=== PATIENT | female | born 1945 | race Caucasian/White ===

== ENCOUNTER → 2024-02-15 12:36 | Outpatient (REF) | payer OTHER, SELFPAY | LOC: RCS 12:36 | PROVIDERS: ATTENDING PHYSICIAN Internal Medicine Cardiovascular Disease; FAMILY PHYSICIAN Internal Medicine | DX: I35.0 Nonrheumatic aortic (valve) stenosis (principal); I50.30 Unspecified diastolic (congestive) heart failure | CPT/HCPCS: 93306 ==

== ENCOUNTER 2024-07-01 13:20 | Inpatient (IN) | payer OTHER, SELFPAY ==
[2024-07-01] VITALS (14 sets, daily range): BP systolic 124–163; BP diastolic 70–97; BMI 55.7; BMI 52.8
[2024-07-01 09:25] LABS: % Basophils 0.4 % (0-2); % Eosinophils 0.9 % (0-6); % Immature Granulocytes 0.6 % (0-0.5); % Lymphocytes 9.3 % (20.5-51.1); % Monocytes 7.6 % (1.7-9.3); % Neutrophils 81.2 % (42.2-75.2); Absolute Eosinophils 0.1 10^3/uL (0-0.7); Absolute Immature Granulocytes 0.1 10^3/uL (0-0.05); Absolute Lymphocytes 0.7 10^3/uL (1.2-3.4); Absolute Monocytes 0.6 10^3/uL (0.1-0.6); Absolute Neutrophils 6.3 10^3/uL (1.4-6.5); Hematocrit 33.8 % (37.0-47.0); Hemoglobin 10.5 g/dL (12.0-16.0); Mean Corp Hgb Conc. 31.1 g/dL (33.0-37.0); Mean Corpuscular Hgb 26.3 pg (27.0-31.0); Mean Corpuscular Volume 84.7 fL (81.0-99.0); Mean Platelet Volume 11.9 fL (7.4-10.4); Nucleated Red Blood Cells % 0 %; Platelet Count 228 10^3/uL (130-400); Red Blood Cell Count 3.99 10^6/uL (4.20-5.40); Red Cell Dist. Width 16.3 % (11.5-14.5); White Blood Cell Count 7.8 10^3/uL (4.8-10.8)
--- NOTE | 2024-07-01 09:26 | ED.GENMED ---
History of Present Illness
General
Chief Complaint: Breathing Problem
Source: patient and spouse ( at bedside)
Exam Limitations: none
Time Seen by Provider: 07/01/24 09:02
Nursing documentation reviewed up to this point in time: agreed with
History of Present Illness
History of Present Illness:
Patient is a 78-year-old female with history atrial fibrillation on Eliquis, hypertension, hyperlipidemia, aortic stenosis, COPD presenting to the emergency department via EMS for shortness of breath. Patient reports increasing shortness of breath
over the past few weeks, worse when lying down at night. Patient states she has been sleeping sitting up in a chair and is still short of breath. She does use 2 L although her O2 was in the 70s today prompting visit to the emergency department.
Patient also notes worsening swelling in her lower legs. She has had a productive cough with clear sputum which is somewhat chronic.
No fevers, chills, chest pain, or abdominal pain.
Patient states she does not walk around at home much at all.
Review of Systems
Review of Systems
Allergies reviewed?: Yes
All Other Systems: ROS reviewed and negative except as documented in HPI and ROS
Phy Exam
Physical Exam
Physical Exam:
Vitals: Hypertensive, hypoxic, afebrile
General: Patient is chronically ill-appearing
Skin: Warm and dry. Circumferential erythema of bilateral lower extremity
Head: Normocephalic, atraumatic
Eyes: Sclera nonicteric. EOMs intact. No nystagmus.
Throat: Protecting airway
Neck: Normal ROM, no cervical spine tenderness, no meningismus
Cardiac: Regular rate and rhythm. Harsh systolic ejection murmur.
Pulm: Hypoxic. Mildly increased work of breathing. Diminished breath sounds bilaterally. No wheezing
Abdomen: Abdomen soft. No abdominal tenderness.
Extremities: 2+ pitting edema bilateral lower extremities with erythema and crusting of skin
Neuro: AAOx3. Grossly intact
Psychiatric: Normal affect.
Scores
Heart Failure Risk
Heart Failure Risk Score: Yes
History of Stroke or TIA: No
History of intubation for respiratory distress: No
Heart rate on ED arrival >/= 110: No
SaO2 <90% on arrival on room air: Yes
HR >/=110 during 3min walk test (or too ill to perform test): No
ECG has acute ischemic changes: No
Urea >/=12mmol/L (BUN 33.6mg/dL): Yes
Serum CO2>/=35mmol/L: Yes
Troponin I or T elevated to AR Level (0.4mg/dL): No
NT-proBNP >/=5,000ng/L (5,000pg/ml): No
HF Risk Score: 4
Admission Status: HIGH RISK 26.1% Consider SNF treatment or admission to hospital
Course
Orders/Labs/Results
Orders:
Orders
07/01/24 Breakfast
2000 calorie (17 carb) Diabetic
At Your Request: Full Participation
Fluid Restriction: 1200 mL/day (40 oz)
07/01/24 08:42
Electrocardiogram (*1) Urgent
Reason for Study: Shortness of Breath
EKG- Treatment ONCE
07/01/24 09:15
Electrocardiogram (*1) Urgent
Reason for Study: Other
Other Reason for Exam: Respiratory Distress
EKG- Treatment ONCE
CR Chest - 2 Views Urgent
Comment:
Reason For Exam: respiratory distress
07/01/24 09:17
Complete Blood Count/With Diff Urgent
NT-proBNP Urgent
Troponin I Urgent
07/01/24 10:03
COVID-19 Antigen Urgent
Source: Nasal Swab
Comprehensive Metabolic Panel Routine
Ferritin Routine
Comment: ADD ON
Iron Routine
Comment: ADD ON
Total Iron Binding Routine
Comment: ADD ON
Vitamin B12 Routine
Comment: ADD ON
Influenza A+B Rapid Molecular Urgent
ANGEL Source: Nasal Swab
Specimen Description:
07/01/24 11:16
Furosemide [Lasix] 40 mg IV NOW STA
07/01/24 12:21
Add On- LAB Routine
Tests Added?: iron,tibc,ferritin,b12
07/01/24 12:34
Add On- LAB Stat
Tests Added?: iron, ferritin, b12, foalte,TIBC
07/01/24 12:38
Admit/Transfer Patient As Directed
Co-Sign Provider:
Level of Care: Inpatient admission
Assign to:: Telemetry
Physician / Group: filipe
Diagnosis: acute on chronic hypoxic respiratory failur
Reason for Telemetry: Arrhythmia
Date to Stop Telemetry: 07/04/24
Time to Stop Telemetry: 11:00
Reason for Hospitalization: CHF exacerbation
Expected length of stay greater than two midnights?: Yes
ELOS- Estimated Length of Stay in days: 3
I certify the patient meets the requirements for IP care: Yes
PRN Pain Medication Management As Directed
May give lesser potent ordered pain med per pt: Yes
preference::
Protocol:: Medication orders for pain may be administered in a
manner that supports deferring to patient preference
when the pt is:
- Requesting an ordered lesser potent pain medication.
Least to most potent pain medications are defined
as: acetaminophen < NSAID < tramadol < opioids
(morphine, oxycodone, hydromorphone).
- Requesting a lesser dose of the same medication IF
ORDERED.
- Requesting a less intrusive route of administration
if both routes are prescribed by the provider (PO <
IV).
07/01/24 12:42
Code Status As Directed
Resuscitation Status: Full Code
07/01/24 13:31
Dextrose 50%-Water [Dextrose 50% Syringe] 12.5 grams IV [id number] PRN
Glucagon [GlucaGen] 1 mg IM PRN PRN
Sodium Chloride [[place], Saline Mist] 1 sprays NASAL TIDPRN PRN
07/01/24 13:31
CARDIOLOGY CONSULT Routine
Consulting Provider: Eitan Bullock
Was physician already notified: Yes
HF DIETARY CONSULT Routine
HF EDUCATOR CONSULT Routine
Comment:
WOUND/OSTOMY CONSULT Routine
Reason for Consult: b/l LE lymphedema
Activity As Directed
Activity Level: As Tolerated
Bedside Glucose Monitoring As Directed
Frequency: AC&HS
Additional Instructions:: Change to q6h if pt on TPN, tube feeding or not eating
Intake/ Output As Directed
Frequency: Per unit guidelines
Patient Education As Directed
Type: CHF folder
Comment: give on admission. Document in Interdisciplinary Education record
Sleep Apnea Assessment by RN As Directed
Comment:
Physician Instructions:
Vital Signs As Directed
Frequency: Other
Additional Instructions:: Q12 or per unit guidelines if more frequent.
Weight As Directed
Frequency: Daily
Type of Scale: Standing Scale
Comment: Daily morning weight. If unable to stand, use balanced bed scale.
Weight As Directed
Frequency: Once
Type of Scale: Standing Scale
Comment: Upon Admission. If unable to stand, use balanced bed scale.
Pulse Ox/cont/shift [RESP] Routine
Quantity: 1
Special Instructions: Daily pulse oximetry at rest. If greater than 92% at rest also obtain pulse oximetry
while ambulating as tolerated.
Ot Eval And Treat Routine
Pt Eval And Treat Routine
Activity Level: As Tolerated
07/01/24 16:00
Diltiazem Extended Release [Cardizem Cd] 240 mg PO TID
Furosemide [Lasix] 40 mg PO BID AT 0800,1600
07/01/24 16:30
Insulin Aspart Corrective Low [Novolog Flexpen-Low Resistance] See Protocol SC AC
07/01/24 18:00
Atorvastatin [Lipitor] 10 mg PO QPM
Docusate Sodium [Colace] 100 mg PO QPM
Montelukast Sodium [Singulair] 10 mg PO QPM
07/01/24 20:00
Apixaban [Eliquis] 5 mg PO BID
Budesonide [Pulmicort] 0.5 mg INH R BID
Budesonide/Formoterol 80/4.5 [Symbicort 80/4.5 Mcg Inhaler] 2 puff INH R BID
Doxycycline [Vibramycin] 100 mg PO Q12
07/01/24 22:00
Latanoprost [Xalatan Ophthalmic Solution] See Dose Instructions BOTH EYES HS
07/02/24 06:00
Basic Metabolic Panel IN AM
Cardiovascular Evaluation IN AM
Glycohemoglobin (HgbA1c) IN AM
Magnesium IN AM
TSH Reflex To Free T4 IN AM
Levothyroxine [Synthroid] 100 mcg PO DAILY@0600
07/02/24 08:00
Cetirizine HCl [Zyrtec] 10 mg PO DAILY
Losartan [Cozaar] 100 mg PO DAILY
mesalamine See Dose Instructions PO DAILY
triamcinolone acetonide [Nasacort] 1 spray NASAL DAILY
07/03/24 06:00
Basic Metabolic Panel IN AM
07/04/24 06:00
Basic Metabolic Panel IN AM
07/04/24 11:00
DC Protocol for Telemetry ONCE
Abnormal Lab Results
07/01/24 07/01/24
09:17 10:03
RBC 3.99 L 10^6/uL
(4.20-5.40)
Hgb 10.5 L g/dL
(12.0-16.0)
Hct 33.8 L %
(37.0-47.0)
MCH 26.3 L pg
(27.0-31.0)
MCHC 31.1 L g/dL
(33.0-37.0)
RDW 16.3 H %
(11.5-14.5)
MPV 11.9 H fL
(7.4-10.4)
Abs Immat Gran (auto) 0.1 H 10^3/uL
(0-0.05)
Absolute Lymphs (auto) 0.7 L 10^3/uL
(1.2-3.4)
Immature Gran % 0.6 H %
(0-0.5)
Neutrophils % 81.2 H %
(42.2-75.2)
Lymphocytes % 9.3 L %
(20.5-51.1)
Chloride 94 L mmol/L
(98-107)
Carbon Dioxide 36 H mmol/L
(22-30)
BUN 34 H mg/dl
(7-17)
Glucose 151 H mg/dl
(70-99)
Calcium 10.5 H mg/dl
(8.4-10.2)
% Saturation 12 L %
(20-50)
Alkaline Phosphatase 199 H U/L
(38-126)
Total Protein 8.4 H g/dl
(6.3-8.2)
Vitamin B12 184 L pg/ml
(239-931)
07/01/24 09:17
07/01/24 10:03
Vital Signs
Initial and Last Documented VS:
Initial Vital Signs
Temp Pulse Resp BP Pulse Ox
98.4 F 80 24 163/94 86
07/01/24 08:40 07/01/24 08:40 07/01/24 08:40 07/01/24 08:40 07/01/24 08:40
Last Documented Vital Signs
Temp Pulse Resp BP Pulse Ox
98.4 F 91 21 140/71 94
07/01/24 08:40 07/01/24 18:00 07/01/24 11:45 07/01/24 18:00 07/01/24 17:45
MDM/Problems Addressed
Differential Diagnosis Includes:
Not limited to: CHF exacerbation, COPD exacerbation, bronchitis, pneumonia, acute coronary syndrome, etc.
MDM/Problems Addressed:
78-year-old female with progressively worsening shortness of breath at rest with increase in O2 requirements and increasing lower extremity edema. Arrives hypoxic and placed on 6L. No chest pain, fever, or abdominal pain. Hypertensive on arrival.
Physical exam as above. Patient with mildly increased work of breathing and diminished breath sounds bilaterally. Heart regular rate and rhythm. Systolic ejection murmur noted. Patient does have 2+ pitting edema bilateral lower extremities.
Overall impression is likely CHF exacerbation. Patient does have history of aortic stenosis which may be contributing. Patient with O2 saturation of 93 on 6 L. Will check labs, troponin, proBNP, viral swabs, and chest x-ray. Anticipate admission
given increased O2 requirement.
Update: Viral swabs negative. Labs reviewed. Troponin undetectable. BNP of 459. However�chest x-ray does show pulmonary edema and increased cardiomegaly. Suspect acute CHF exacerbation with possible worsening aortic stenosis. Given increase in
O2 requirement significant clinical fluid overload�patient will require admission for IV diuresis and respiratory support. 40 IV Lasix given in emergency department. Patient excepted to hospitalist service in stable condition.
Chronic conditions affecting care:
Aortic stenosis, COPD, hypertension, atrial fibrillation on Eliquis
Acute Exacerbation and/or Progression of Chronic Illness:
Acutely hypertensive
*Radiology
Radiology exam reviewed: preliminary read by ED provider (Chest x-ray reviewed by wy-cardiomegaly and pulmonary edema) and radiology read reviewed
*Pulse Oximetry
Patient hypoxic: yes (86 on room air-placed on 6 L via nasal cannula)
*EKG
Interpreted by ED Provider?: Yes
EKG Intrepretation Date: 07/01/24
Interpretation: normal
Comparison EKG: changes noted
Heart Rate: 76
Rate: normal
Rhythm: sinus
[place]: normal axis
Interval: normal QT interval
QRS Pattern: normal QRS
Ischemia: no ischemia
*Forming Roll Operator Interpretation
Rate: normal
Interpretation: normal
Heart Rate: 86
Rhythm: sinus
*Critical Care Note
Total Time (30-74mins, 75-104mins- exclusive of procedures): Not Applicable
Patient Management
Discussion with other providers: Hospitalist
Escalation/DeEscalation of care consider admission/obs:
Admission indicated
ED Attending Note
-
Portions of this chart may have been created with voice recognition software.� Occasional wrong word or��sound alike� substitutions may have occurred due to the inherent limitations of voice recognition software.
Discharge Plan
Departure
Patient Disposition: Admit
Date of Disposition: 07/01/24
Time of Disposition: 11:16
Presentation/result/management discussed w/ accepting MD/DO: Hospitalist
Discharge Problem:
Acute exacerbation of CHF (congestive heart failure), Hypoxic respiratory failure
Interventions
Interventions:
*Risk Screen - Suicide Last Done: 07/01/24 08:39
*General Assessment Last Done: 07/01/24 08:39
*Neglect/Abuse Screening Last Done: 07/01/24 08:39
*ED COVID-19 Vaccine History Last Done: 07/01/24 08:39
ED- Cardiac Assessment Last Done: 07/01/24 16:37
ED- Pulmonary Assessment Last Done: 07/01/24 16:37
[2024-07-01 09:50] LABS: NT-proBNP 459 pg/ml; Troponin I < 0.012 ng/ml
[2024-07-01 11:10] LABS: ALT (SGPT) 11 U/L (0-35); AST (SGOT) 17 U/L (14-36); Albumin 4.6 g/dl (3.5-5.0); Alkaline Phosphatase 199 U/L (38-126); Blood Urea Nitrogen 34 mg/dl (7-17); Calcium 10.5 mg/dl (8.4-10.2); Carbon Dioxide 36 mmol/L (22-30); Chloride 94 mmol/L (98-107); Estimated Creatinine Clearance 70 ml/min; Glucose 151 mg/dl (70-99); Potassium 4.2 mmol/L (3.5-5.1); Sodium 138 mmol/L (135-145); Total Bilirubin 0.9 mg/dl (0.2-1.3); Total Protein 8.4 g/dl (6.3-8.2); eGFR > 60.00
[2024-07-01 11:17] LABS: COVID-19 Antigen Negative (Negative)
[2024-07-01] MEDS: LASIX 40 MG IV ×2 (11:36→16:12)
--- NOTE | 2024-07-01 12:07 | HPS.HSE ---
Addendum entered and electronically signed by Zeinab Park MD 07/01/24 15:49:
78-year-old female admitted with progressive shortness of breath. Has been short of breath for a while she does not weigh herself for the past 1 year. She also had some productive cough no fever. She could not even transfer from her wheelchair to
the walker. She has been using oxygen which she was prescribed for as needed use has been using it [id number]
On examination awake alert
Bilateral rales on chest exam
Cardiovascular system S1-S2 appreciated, systolic murmur at aortic area
Abdomen soft and nontender
Bilateral chronic venous stasis changes bilateral edema noted
# Acute respiratory failure secondary to CHF and possible pneumonia
# Acute on chronic HFpEF with moderate aortic stenosis
Volume overloaded
Dietary indiscretion and also she does not weigh herself at home
Continue Lasix 40 mg IV twice daily
Salt and fluid restriction
Intake output charting, daily weights, CHF education
Follow creatinine
Repeat echo
Cardiology evaluation
Check troponin
Chest x-ray reviewed by me
# Pneumonia cannot be ruled out-multiple medication allergies noted. Start doxycycline and watch
# Aortic stenosis moderate per last echo January 2024
# Paroxysmal atrial fibrillation-continue Eliquis, Cardizem
# Hypertension-continue losartan 100 mg daily, diltiazem 250 mg 3 times a day
# Asthma-budesonide, Singulair, as needed neb treatment
# Chronic respiratory failure on as needed oxygen as outpatient
# Jgldzfgs-Jfsp-Yjge sliding scale coverage. Continue Januvia 100 mg daily, metformin 500 twice daily
# Anemia- B 12 def replace.
# Hypothyroidism-continue Synthroid 100 mcg daily
# Hypercalcemia-check intact PTH, also check vitamin D level-
# Psoriasis
# Sleep apnea-CPAP
# Hyperlipidemia-continue atorvastatin
# History of nephrolithiasis
# Diverticulosis
# Morbid obesity with a BMI of 55
# DJD/ambulatory dysfunction/osteoarthritis-PT eval
# Glaucoma-continue travoprost eyedrops
# Multiple antibiotic allergies-I told patient as well as daughter that she should follow-up with an custom seamstress and see if she has true allergies to these antibiotics. Both of them are aware that when and if she needs antibiotics for serious
infections this can be in a way of treating it and she will only get suboptimal antibiotic choices at that time if she is listed as allergic to all these
# DVT prophylaxis-Eliquis
# Full code
Discussed with patient's daughter at bedside
Time spent over 75 minutes
Original Note:
Family Physician
-
Family Physician: Andreas Lake
Chief Complaint
-
sob
LE edema
History of Present Illness
78-year-old female with history atrial fibrillation on Eliquis, hypertension, hyperlipidemia, aortic stenosis, COPD,Sjogren syndrome presenting to the emergency department via EMS for shortness of breath. worsening for past three days. she was
supposed to use oxygen as needed but for past two weeks, she is requiring oxygen all the time. she was noted to have worsening b/l LE edema. she has productive cough. for past few days she is sleeping on the chair due to sob. for past three days she
was not able to transfer her from from bed to chair, walk. denied fever, chills. she is complaining chest heaviness. denied FLORES, dizzy or syncope. denied abdominal pain,n,v,d. denied dysuria or hematuria.
upon arrival she is requiring 6l of oxygen. chest x ray with pulmonary edema. received Lasix. admitting for further management.
Medical History
Past Medical History
Past Medical History: Reports Other
Additional Past Medical History:
Lymphedema
Right lower lobe cellulitis
Peripheral edema
Venous stasis
Venous insufficiency
Obstructive sleep apnea
GERD
Type 2 diabetes
Hypertension
Asthma
Ulcerative colitis
Hypothyroidism
Psoriasis
Hyperlipidemia
Diverticulosis
Irritable bowel syndrome
Blood,
Autoimmune disease
Rosacea
Fibrocystic breast
A-fib
Past Surgical History: Reports Other
Additional Past Surgical History:
DNC
Kidney stone removed
Social History
Tobacco: Former Smoker
Alcohol: None
Drug: None
Personal:
Living: With Family
Family History
Family History: Not pertinent
Allergies / Home Medications
Allergies reflects when Allergies were last updated in [employer].
Home Medications with original date entered in [employer]
Allergy/Medication List:
Allergies
Allergy/AdvReac Type Severity Reaction Status Date / Time
alendronate sodium Allergy esophagus Verified 07/01/24 08:39
[From Fosamax] spasms
cephalexin [From Keflex] Allergy throat Verified 07/01/24 08:39
closed
clarithromycin [From Biaxin] Allergy Hives Verified 07/01/24 08:39
erythromycin base Allergy Rash, Verified 07/01/24 08:39
diarrhea
fentanyl Allergy difficulty Verified 07/01/24 08:39
awakening
from
surgery
fish oil Allergy Unknown Verified 07/01/24 08:39
house dust Allergy sneeze Verified 07/01/24 08:39
hyoscyamine Allergy throat Verified 07/01/24 08:39
tightening
influenza virus vaccine, Allergy Unknown Verified 07/01/24 08:39
specific
latex Allergy Rash Verified 07/01/24 08:39
levalbuterol [From Xopenex] Allergy 'bee sting Verified 07/01/24 08:39
sensation
all over'
levofloxacin [From Levaquin] Allergy difficulty Verified 07/01/24 08:39
breathing
mold Allergy rash/hives/ Verified 07/01/24 08:39
sob
nut - unspecified Allergy Unknown Verified 07/01/24 08:39
Penicillins Allergy Hives Verified 07/01/24 08:39
pneumococcal vaccine Allergy Rash Verified 07/01/24 08:39
shellfish derived Allergy hives/difficulty Verified 07/01/24 08:39
breathing
tetanus and diphtheria Allergy wheezing Verified 07/01/24 08:39
toxoids
vancomycin Allergy Shortness Verified 07/01/24 08:39
of Breath
Home Medications
albuterol sulfate 90 mcg/actuation breath activated powder inhaler (ProAir RespiClick) 90 mcg IH R Q6HPRN PRN asthma 04/05/19
cetirizine 10 mg tablet 10 mg PO DAILY 04/05/19
cholecalciferol (vitamin D3) 25 mcg (1,000 unit) tablet 1,000 units PO DAILY 04/05/19
furosemide 40 mg tablet 20 mg PO BID 04/05/19
levothyroxine 100 mcg tablet 100 mcg PO DAILY AT 0700 04/05/19
losartan 50 mg tablet 100 mg PO DAILY 04/05/19
metformin 500 mg tablet 500 mg PO BID@0800,1700 04/05/19
sitagliptin phosphate 100 mg tablet (Januvia) 100 mg PO DAILY 04/05/19
travoprost 0.004 % eye drops 1 drp BOTH EYES HS 04/05/19
atorvastatin 10 mg tablet 10 mg PO QPM 30 days #30 tabs 04/07/19
apixaban 5 mg tablet (Eliquis) 5 mg PO BID 07/01/24
budesonide 0.5 mg/2 mL suspension for nebulization 0.5 mg inhalation R BIDPRN PRN sob 07/01/24
diltiazem HCl 240 mg capsule,extended release 24 hr 240 mg PO TID 07/01/24
docusate sodium 100 mg capsule 100 mg PO QPM 07/01/24
fluticasone furoate 100 mcg-vilanterol 25 mcg/dose inhalation powder (Breo Ellipta) 1 inh inhalation R DAILY 07/01/24
ipratropium 0.5 mg-albuterol 3 mg (2.5 mg base)/3 mL nebulization soln 3 ml inhalation R BID 07/01/24
light mineral oil 1 %-mineral oil 4.5 % eye drops (Soothe XP) 1 drp ophthalmic (eye) TIDPRN PRN both eyes 07/01/24
mesalamine 1.2 gram tablet,delayed release 2.4 g PO DAILY 07/01/24
methylcellulose (laxative) 500 mg tablet (Citrucel) 500 mg PO QPM 07/01/24
montelukast 10 mg tablet 10 mg PO QPM 07/01/24
sodium chloride 0.65 % nasal spray aerosol 1 spray intranasal TIDPRN PRN dryness 07/01/24
triamcinolone acetonide 55 mcg nasal spray aerosol (Nasacort) 1 spray intranasal DAILY 07/01/24
Review of Systems
-
EENT: Reports No Symptoms
Respiratory: Reports Cough and Trouble Breathing
Cardiac: Reports Chest Pain
Abdomen/GI: Reports No Symptoms
: Reports No Symptoms
Musculoskeletal: Reports Edema
Skin: Reports No Symptoms
Neurological: Reports Weakness
Endocrine: Reports No Symptoms
Hematologic/Lymphatic: Reports No Symptoms
Psych: Reports No Symptoms
Physical Exam
Vital Signs
Vital Signs
Temp Pulse Resp BP Pulse Ox
98.4 F 77 21 147/70 93
07/01/24 08:40 07/01/24 11:45 07/01/24 11:45 07/01/24 11:39 07/01/24 11:45
Physical Exam
General: Well Developed, Well Nourished and No Apparent Distress
HEENT: NormoCephalic, Moist mucous membranes and Atraumatic
Respiratory: Decreased Breath Sounds
Cardiac: S1/S2 and Regular Rhythm; No Murmur or Rub
GI: Soft, Non Tender, Non Distended and Normal Bowel Sounds; No Organomegaly
Rectal: Deferred by Provider
Musculoskeletal: No Clubbing, No Cyanosis and Other (b/l LE edema)
Skin: Rash and Other (red b/l LE edema skin)
Neuro: AO x 3 and Nonfocal/grossly intact
Psych: Calm
Laboratory Results
-
07/01/24 09:17
07/01/24 10:03
Laboratory Results
Total Bilirubin 0.9 mg/dl (0.2-1.3) 07/01/24 10:03
AST 17 U/L (14-36) 07/01/24 10:03
ALT 11 U/L (0-35) 07/01/24 10:03
Alkaline Phosphatase 199 U/L (38-126) H 07/01/24 10:03
Troponin I < 0.012 ng/ml 07/01/24 09:17
Data Reviewed
-
Diagnostic Radiology: Report Reviewed by me
Lab Data: Labs Reviewed by me
Impression/Plan
-
# Acute on chronic hypoxic respiratory failure likely from CHF exacerbation
-Patient uses 2 L at home, patient is requiring 6 L
-Chest x-ray with Increased bilateral interstitial markings and ground-glass opacity in both lungs most suggestive of ACUTE INTERSTITIAL and ALVEOLAR CARDIOGENIC PULMONARY EDEMA (despite an intermediate proBNP level).
2. Moderate left lower lobe and right upper lobe opacity which is probably alveolar edema. Bilateral pneumonia is an alternative less likely diagnostic possibility.
3. Small bilateral pleural effusions.
4. Mild to moderate cardiomegaly.
5. Mildly decreased bilateral lung volumes.
-BNP 459
-IV Lasix 4o bid continued
-Strict ASAF
-Daily weight
-Fluid restriction
-Cardiology consult
-COVID negative, negative influenza Aand B
-Recent echo in with impression of EF of 60-65 percentage.
# Anemia likely dilutional
-Hemoglobin stable at 10.5
-Patient stated no active bleeding
-Obtain iron panel, B12, ferritin, folate
# Proximal A-fib
-EKG with normal sinus rhythm
-Eliquis continued
-Diltiazem continued
# History of COPD/Sjogren syndrome
-Budesonide continued
-Breo continued
-Nebs as needed for short of breath and wheezing
-Singular continued
#Lpq-[id number] diabetes mellitus
-. Diabetic diet. Insulin
-sliding scale. Accu-Cheks.
-hold Januvia and metformin
# Hypothyroidism
-Levothyroxine continued
# Hypertension
-Losartan continued
# Hyperlipidemia. Continue with statin therapy.
# DVT prophylaxis: Eliquis.
# Code status: Full code.
[2024-07-01 12:52] LABS: Iron 50 ug/dl (37-170)
[2024-07-01 13:01] LABS: Percent Saturation 12 % (20-50); Total Iron Binding Capacity 415 ug/dl (265-497)
--- NOTE | 2024-07-01 14:01 | CON.CAR ---
Consultation
Consultation Request
Date/Time Consultation Requested: July 01, 2024
Date/Time Consultation Performed: July 01, 2024
Requesting Provider: Hospitalist
Performing Provider: dr Eitan stone
Reason for Consultation: Acute congestive heart failure
Medical History
-
Chief Complaint: Shortness of breath
History of Present Illness:
She has developed progressive shortness of breath most noticeable to her over the past 3 days however her feels he has noted progressive dyspnea over at least the past 2 weeks. She has developed worsening lower extremity edema as well as a
productive cough. Evaluation in the emergency department finds her to have acute decompensated congestive heart failure and cardiology is consulted. COVID negative, negative influenza A and B.
Evaluation in the emergency department finds
-ECG on presentation July 01, 2024 finds sinus rhythm at 76 bpm, normal EKG
-CXR bilateral interstitial markings and groundglass opacity in both lungs which is felt to be most consistent with acute interstitial and alveolar hole or cardiogenic pulmonary edema. There are small bilateral pleural effusions. There are
decreased lung volumes bilaterally
-COVID negative, negative influenza A and B
Past medical history:
Heart failure with preserved ejection fraction
Aortic stenosis last graded as moderate January 2024
Obstructive sleep apnea
Interstitial lung disease
She has a history of connective tissue disease, possibly Sjogren's, SS-A positive, BGMA Granulomatosis/polyangitis�
Essential hypertension
Paroxysmal atrial fibrillation, on Eliquis anticoagulation for atrial fibrillation related thromboembolic risk reduction
Morbid obesity
Chronic lymphedema
Diabetes mellitus, type II
Ulcerative colitis
Hypothyroidism
Echocardiogram February 15, 2024 finds LVEF of 60-65% with no wall motion abnormality. Left atrium is mildly dilated. There is moderate aortic stenosis with peak and mean gradients of 38 and 24 mmHg.
Social History
Tobacco: Non-Smoker
Alcohol: None
Drug: None
Personal:
Living: With Family
Employment: Retired
Family History
Family History: Reviewed & Not Pertinent
Allergies / Home Medications
Allergy/AdvReac Type Severity Reaction Status Date / Time
alendronate sodium Allergy esophagus Verified 07/01/24 08:39
[From Fosamax] spasms
cephalexin [From Keflex] Allergy throat Verified 07/01/24 08:39
closed
clarithromycin [From Biaxin] Allergy Hives Verified 07/01/24 08:39
erythromycin base Allergy Rash, Verified 07/01/24 08:39
diarrhea
fentanyl Allergy difficulty Verified 07/01/24 08:39
awakening
from
surgery
fish oil Allergy Unknown Verified 07/01/24 08:39
house dust Allergy sneeze Verified 07/01/24 08:39
hyoscyamine Allergy throat Verified 07/01/24 08:39
tightening
influenza virus vaccine, Allergy Unknown Verified 07/01/24 08:39
specific
latex Allergy Rash Verified 07/01/24 08:39
levalbuterol [From Xopenex] Allergy 'bee sting Verified 07/01/24 08:39
sensation
all over'
levofloxacin [From Levaquin] Allergy difficulty Verified 07/01/24 08:39
breathing
mold Allergy rash/hives/ Verified 07/01/24 08:39
sob
nut - unspecified Allergy Unknown Verified 07/01/24 08:39
Penicillins Allergy Hives Verified 07/01/24 08:39
pneumococcal vaccine Allergy Rash Verified 07/01/24 08:39
shellfish derived Allergy hives/difficulty Verified 07/01/24 08:39
breathing
tetanus and diphtheria Allergy wheezing Verified 07/01/24 08:39
toxoids
vancomycin Allergy Shortness Verified 07/01/24 08:39
of Breath
�Medication �Instructions �Recorded �Confirmed �Type
albuterol sulfate 90 mcg/actuation 90 mcg IH R Q6HPRN PRN asthma 04/05/19 07/01/24 History
breath activated powder inhaler
(ProAir RespiClick)
cetirizine 10 mg tablet 10 mg PO DAILY 04/05/19 07/01/24 History
cholecalciferol (vitamin D3) 25 1,000 units PO DAILY 04/05/19 07/01/24 History
mcg (1,000 unit) tablet
furosemide 40 mg tablet 20 mg PO BID 04/05/19 07/01/24 History
levothyroxine 100 mcg tablet 100 mcg PO DAILY AT 0700 04/05/19 07/01/24 History
losartan 50 mg tablet 100 mg PO DAILY 04/05/19 07/01/24 History
metformin 500 mg tablet 500 mg PO BID@0800,1700 04/05/19 07/01/24 History
sitagliptin phosphate 100 mg 100 mg PO DAILY 04/05/19 07/01/24 History
tablet (Januvia)
travoprost 0.004 % eye drops 1 drp BOTH EYES HS 04/05/19 07/01/24 History
atorvastatin 10 mg tablet 10 mg PO QPM 30 days #30 tabs 04/07/19 07/01/24 Rx
apixaban 5 mg tablet (Eliquis) 5 mg PO BID 07/01/24 07/01/24 History
budesonide 0.5 mg/2 mL suspension 0.5 mg inhalation R BIDPRN PRN sob 07/01/24 07/01/24 History
for nebulization
diltiazem HCl 240 mg 240 mg PO TID 07/01/24 07/01/24 History
capsule,extended release 24 hr
docusate sodium 100 mg capsule 100 mg PO QPM 07/01/24 07/01/24 History
fluticasone furoate 100 1 inh inhalation R DAILY 07/01/24 07/01/24 History
mcg-vilanterol 25 mcg/dose
inhalation powder (Breo Ellipta)
ipratropium 0.5 mg-albuterol 3 mg 3 ml inhalation R BID 07/01/24 07/01/24 History
(2.5 mg base)/3 mL nebulization
soln
light mineral oil 1 %-mineral oil 1 drp ophthalmic (eye) TIDPRN PRN 07/01/24 07/01/24 History
4.5 % eye drops (Soothe XP) both eyes
mesalamine 1.2 gram tablet,delayed 2.4 g PO DAILY 07/01/24 07/01/24 History
release
methylcellulose (laxative) 500 mg 500 mg PO QPM 07/01/24 07/01/24 History
tablet (Citrucel)
montelukast 10 mg tablet 10 mg PO QPM 07/01/24 07/01/24 History
sodium chloride 0.65 % nasal spray 1 spray intranasal TIDPRN PRN 07/01/24 07/01/24 History
aerosol dryness
triamcinolone acetonide 55 mcg 1 spray intranasal DAILY 07/01/24 07/01/24 History
nasal spray aerosol (Nasacort)
Review of Systems
-
History Source: Patient
Constitutional: Fatigue
EENT: Other (Epistaxis which has been rather chronic with her O2 supplementation)
Respiratory: Cough
Cardiac: Other (Progressive dyspnea particularly with exertion)
Abdomen/GI: No Symptoms
: No Symptoms
Skin: No Symptoms
Neurological: No Symptoms
Endocrine: No Symptoms
Hematologic/Lymphatic: No Symptoms
Physical Exam
Vital Signs
Temp Pulse Resp BP Pulse Ox
98.4 F 77 21 147/70 93
07/01/24 08:40 07/01/24 11:45 07/01/24 11:45 07/01/24 11:39 07/01/24 11:45
Lab Results
07/01/24 09:17
07/01/24 10:03
Troponin I < 0.012 ng/ml 07/01/24 09:17
Bvi-X-Tkftiegizjv Pept 459 pg/ml 07/01/24 09:17
Physical Exam
General: Other (Fatigued appearing elderly woman, morbidly obese)
HEENT: Normocephalic, Anicteric and Moist Mucous Membranes
Respiratory: Other (Poor inspiratory effort, reduced breath sounds bilaterally, bibasilar crackles, no wheezes)
Cardiac: S1/S2 (Normal S1 and S2, no S3 no S4), Regular Rhythm and Murmur (There is a grade 2/6 basal systolic ejection murmur)
Breast: Deferred by me
GI: Soft, Non Tender, Non Distended, Normal Bowel Sounds and Other (Obese)
Rectal: Deferred by Provider
Musculoskeletal: No Clubbing, No Cyanosis and Edema (There is +3 pitting lower extremity edema with brawny skin changes suggestive of chronic edema bilaterally)
Skin: Warm and Dry
Neuro: Awake, Alert, Oriented and AO x 3
Psych: Calm
Impression / Plan
-
Assessment:
Acute decompensated heart failure with preserved ejection fraction
Aortic stenosis last graded as moderate January 2024
Obstructive sleep apnea
Interstitial lung disease
She has a history of connective tissue disease, possibly Sjogren's, SS-A positive, BGMA Granulomatosis/polyangitis�
Essential hypertension
Paroxysmal atrial fibrillation
8.4% burden on outpatient monitoring December 2023
Maintained on Eliquis anticoagulation for atrial fibrillation related thromboembolic risk reduction
Morbid obesity
Chronic lymphedema
Diabetes mellitus, type II
Ulcerative colitis
Hypothyroidism
Echocardiogram February 15, 2024 finds LVEF of 60-65% with no wall motion abnormality. Left atrium is mildly dilated. There is moderate aortic stenosis with peak and mean gradients of 38 and 24 mmHg.
Recommendations:
Acute decompensated congestive heart failure, HFpEF + moderate aortic stenosis
She is markedly volume overloaded with progressive symptoms over the past several weeks. It is possible that worsening aortic stenosis may be contributing.
-Aggressive IV Lasix diuresis with 40 mg IV twice daily (was on 20 mg orally twice daily as an outpatient)
-Fluid restriction
-Strict I and O's as well as daily weights
-Follow renal function closely
-Keep magnesium between 2 and 3 and potassium between 4 and 5
-CHF education
-Echocardiogram on Wednesday
Aortic stenosis which was graded as moderate in 2023. It is possible that progressive aortic stenosis is contributing to her decompensated heart failure.
-IV Lasix diuresis for marked volume overload and decompensated congestive heart failure
-Echocardiogram on Wednesday to reassess degree of aortic stenosis and to assess LV function
-Her morbid obesity would complicate any consideration for aortic valve intervention
Paroxysmal atrial fibrillation
Currently maintaining sinus rhythm but would not be surprised if she has paroxysms of atrial fibrillation, as an outpatient her atrial fibrillation burden was 8.4%
-Maintain Eliquis 5 mg twice daily for atrial fibrillation related thromboembolic risk reduction
-Maintain diltiazem for rate control, most recently she has been using 240 mg 3 times daily
Essential hypertension
On presentation she was somewhat hypertensive her blood pressures have improved.
-Recommend getting her back on her typical medications (losartan 100 mg daily, diltiazem 240 mg 3 times daily and reassessing her blood pressure.
Interstitial lung disease/obstructive sleep apnea and diabetes mellitus as per primary service
Total time spent today was 82 minutes in preparing to see the patient, seeing the patient and coordination of care. This included review of recent laboratory evaluations, cardiac testing, imaging studies, medical records, as well as personally
interviewing and examining the patient and her , which included discussion of their tests, review/ordering medications, and communicating with other healthcare professionals and also treatment planning as well as counseling.
Data Reviewed
-
EKG: Tracing Personally Visualized and interpreted
Radiology: Image Personally Visualized and interpreted and Report Reviewed by me
Medical Tests (Nuc Med, Echo etc): Report Reviewed by me
Labs: Labs Reviewed by me
Old Records: Reviewed
[2024-07-01 14:37] LABS: Ferritin 17.9 ng/ml (11.1-264.0)
[2024-07-01 14:52] LABS: Vitamin B12 184 pg/ml (239-931)
[2024-07-01] MEDS: CARDIZEM CD 240 MG PO ×2 (16:13→21:38)
[2024-07-01 17:02] LABS: Glucose - Point of Care 135 mg/dl (70-99)
[2024-07-01] MEDS: NOVOLOG FLEXPEN-LOW RESISTANCE SC (17:22)
[2024-07-01] MEDS: CYANOCOBALAMIN 1000 MCG IM (17:23)
[2024-07-01] MEDS: PULMICORT 0.5 MG INH (18:17)
[2024-07-01] MEDS: LIPITOR 10 MG PO (18:34)
[2024-07-01] MEDS: COLACE 100 MG PO (18:34)
[2024-07-01] MEDS: SINGULAIR 10 MG PO (18:34)
[2024-07-01 19:33] LABS: Troponin I < 0.012 ng/ml
[2024-07-01] MEDS: SENOKOT 17.2 MG PO (21:38)
[2024-07-01] MEDS: VIBRAMYCIN 100 MG PO (21:38)
[2024-07-01] MEDS: XALATAN OPHTHALMIC SOLUTION 1 DROP BOTH EYES (21:38)
[2024-07-01] MEDS: FEOSOL 325 MG PO (21:38)
[2024-07-01] MEDS: ELIQUIS 5 MG PO (21:38)
[2024-07-01 21:48] LABS: Glucose - Point of Care 141 mg/dl (70-99)
--- NOTE | 2024-07-01 23:00 | RESPNOTE ---
PT was ordered to use her own CPAP from home as she wears normally HS at home. PT stated that she did not bring her home machine with her to the hospital and has no desire to use our hospital machines.
[2024-07-02] VITALS (10 sets, daily range): BP systolic 111–161; BP diastolic 70–100; PULSE 2–88; O2SAT 94; BMI 52.4; BMI 52.3
[2024-07-02] MEDS: SYNTHROID 100 MCG PO (05:41)
[2024-07-02 07:51] LABS: Blood Urea Nitrogen 27 mg/dl (7-17); Calcium 10.4 mg/dl (8.4-10.2); Chloride 89 mmol/L (98-107); Estimated Creatinine Clearance 68 ml/min; Glucose 157 mg/dl (70-99); HDL Cholesterol 56 mg/dl; LDL Cholesterol, Calculated 117 mg/dl; Magnesium 1.8 mg/dl (1.6-2.3); Potassium 4.1 mmol/L (3.5-5.1); Sodium 140 mmol/L (135-145); Total Cholesterol 194 mg/dl (50-199); Triglyceride 105 mg/dl (10-149); Very Low Density Lipoprotein 21 mg/dl (0-30); eGFR > 60.00
[2024-07-02 08:00] LABS: Carbon Dioxide 38 mmol/L (22-30)
[2024-07-02] MEDS: PULMICORT 0.5 MG INH ×2 (08:01→20:01)
[2024-07-02 08:02] LABS: Vitamin D, 25-OH*** 28.3 ng/mL (30-80)
[2024-07-02 08:11] LABS: Glucose - Point of Care 132 mg/dl (70-99)
[2024-07-02 08:15] LABS: TSH Reflex To Free T4 1.21 uIU/ml (0.47-4.68)
[2024-07-02] MEDS: NOVOLOG FLEXPEN-LOW RESISTANCE SC ×2 (08:44→17:35)
[2024-07-02] MEDS: CYANOCOBALAMIN 1000 MCG IM (09:38)
[2024-07-02] MEDS: COZAAR 100 MG PO (09:38)
[2024-07-02] MEDS: CARDIZEM CD 240 MG PO ×3 (09:38→21:08)
[2024-07-02] MEDS: ELIQUIS 5 MG PO ×2 (09:41→21:08)
[2024-07-02] MEDS: LASIX 40 MG IV ×2 (09:41→17:22)
[2024-07-02] MEDS: FEOSOL 325 MG PO ×2 (09:41→21:08)
[2024-07-02] MEDS: VIBRAMYCIN PO (09:42)
[2024-07-02] MEDS: MIRALAX PO ×2 (09:42→14:06)
[2024-07-02] MEDS: ZYRTEC 10 MG PO (09:42)
[2024-07-02 09:43] LABS: Glycohemoglobin (HgbA1c) 7.4 % (4.0-5.6)
--- NOTE | 2024-07-02 10:00 | PTCARENOTE ---
Pt appears more drowsy than usual this AM and has some slight confusion especially when talking about medications. Pt was able to take PO meds eventually after waking up a bit. Pulsox 95% on 6L - O2 turned down to 5L to attempt to wean.
[2024-07-02] MEDS: VIBRAMYCIN 100 MG PO ×2 (10:23→21:08)
--- NOTE | 2024-07-02 11:29 | W.PN.CARDCBS ---
Today's Communication / Plan
-
Continue diuresis
Check echocardiogram in the morning
Cellulitis of the lower extremity? Further evaluation as per primary service. May benefit from wound care
Impression / Plan
-
Assessment:
Acute decompensated heart failure with preserved ejection fraction
Aortic stenosis last graded as moderate January 2024
Obstructive sleep apnea
Interstitial lung disease
She has a history of connective tissue disease, possibly Sjogren's, SS-A positive, BGMA Granulomatosis/polyangitis�
Essential hypertension
Paroxysmal atrial fibrillation
8.4% burden on outpatient monitoring December 2023
Maintained on Eliquis anticoagulation for atrial fibrillation related thromboembolic risk reduction
Morbid obesity
Chronic lymphedema
Diabetes mellitus, type II
Ulcerative colitis
Hypothyroidism
Echocardiogram February 15, 2024 finds LVEF of 60-65% with no wall motion abnormality. Left atrium is mildly dilated. There is moderate aortic stenosis with peak and mean gradients of 38 and 24 mmHg.
Recommendations:
Acute decompensated congestive heart failure, HFpEF + moderate aortic stenosis
She is markedly volume overloaded by exam (pBNP 'normal' but patient with morbid obesity), progressive symptoms over the past several weeks. It is possible that worsening aortic stenosis may be contributing.
-Aggressive IV Lasix diuresis with 40 mg IV twice daily (was on 20 mg orally twice daily as an outpatient)
Uncertain if fluid balance accurate 2/1 -> 2/2 (I/O listed as 120/300). Now with [email or web address] eternal catheter in place
Wt is down 2 lbs
Renal function stable with Bun/Creat improved from 34/0.9 to 27/0.9, K 4.1, Mg 1.8, Na 140. Cl is down to 89 and Carbon dioxide is up to 38 which may be c/w contraction alkalosis
For now, will continue to recommend Lasix 40 mg IV twice daily as we follow renal function and electrolytes closely
If inadequate diuretic response will need to uptitrate Lasix dose tomorrow
-Fluid restriction
-Strict I and O's as well as daily weights
-Follow renal function closely
-Keep magnesium between 2 and 3 and potassium between 4 and 5
-CHF education
-Echocardiogram on Wednesday
Aortic stenosis which was graded as moderate in 2023. It is possible that progressive aortic stenosis is contributing to her decompensated heart failure.
-IV Lasix diuresis for marked volume overload and decompensated congestive heart failure
-Echocardiogram on Wednesday to reassess degree of aortic stenosis and to assess LV function
-Her morbid obesity would complicate any consideration for aortic valve intervention
Paroxysmal atrial fibrillation
Currently maintaining sinus rhythm but would not be surprised if she has paroxysms of atrial fibrillation, as an outpatient her atrial fibrillation burden was 8.4%
-Maintain Eliquis 5 mg twice daily for atrial fibrillation related thromboembolic risk reduction
-Maintain diltiazem for rate control, most recently she has been using 240 mg 3 times daily
Cellulitis of the lower extremities?
-Further evaluation and management as per primary service
Anemia
-Trend hemoglobin, further evaluation and management per primary service
Essential hypertension
On presentation she was somewhat hypertensive her blood pressures have improved.
-Back on her typical medications (losartan 100 mg daily, diltiazem 240 mg 3 times daily) blood pressure has improved
Dyslipidemia
LDL 117, HDL 56, total cholesterol 194, triglycerides 105
Atorvastatin 10 mg daily
Interstitial lung disease/obstructive sleep apnea and diabetes mellitus as per primary service
Diabetes mellitus
Poorly controlled, hemoglobin A1c 7.4
Total time spent today was 51 minutes in preparing to see the patient, seeing the patient and coordination of care. This included review of recent laboratory evaluations, cardiac testing, imaging studies, medical records, as well as personally
interviewing and examining the patient, discussion of tests, review/ordering medications, and communicating with other healthcare professionals and also treatment planning as well as counseling.
I have discussed with the patient's daughter who is at bedside as well. All of their questions have been answered.
Progress Note - Volunteer Patient Representative
Subjective
Date of Service: July 02, 2024
She tells me that she feels more tired than yesterday. Really no change in her baseline shortness of breath.
Objective
Labs:
07/01/24 09:17
07/02/24 06:43
Labs
Hgb 10.5 g/dL (12.0-16.0) L 07/01/24 09:17
Hct 33.8 % (37.0-47.0) L 07/01/24 09:17
Plt Count 228 10^3/uL (130-400) 07/01/24 09:17
Sodium 140 mmol/L (135-145) 07/02/24 06:43
Potassium 4.1 mmol/L (3.5-5.1) 07/02/24 06:43
BUN 27 mg/dl (7-17) H 07/02/24 06:43
Creatinine 0.9 mg/dL (0.6-1.0) 07/02/24 06:43
Glucose 157 mg/dl (70-99) H 07/02/24 06:43
Troponins
07/01/24 07/01/24
09:17 18:53
Troponin I < 0.012 < 0.012
Vital Signs and I&O:
Vital Signs
Temp Pulse Resp BP Pulse Ox
97.9 F 97 24 146/77 93
07/02/24 07:55 07/02/24 08:09 07/02/24 08:09 07/02/24 07:55 07/02/24 08:09
Vital Signs
Temp Pulse Resp BP Pulse Ox
97.9 F 97 24 146/77 93
07/02/24 07:55 07/02/24 08:09 07/02/24 08:09 07/02/24 07:55 07/02/24 08:09
Intake & Output
06/30/24 07/01/24 07/02/24 07/03/24
06:59 06:59 06:59 06:59
Intake Total 120 / 120
Output Total 300 / 300
Balance -180 / -180
Physical Exam
Physical Exam
Morbidly obese, appears fatigued. Resting in bed
She does not appear distressed, she is not tachypneic.
Regular rate and rhythm with normal S1 and S2, no S3 no S4, there is a grade 2/6 systolic ejection murmur heard at both the right upper and left upper sternal border, no rubs
Lungs reduced inspiratory effort and reduced breath sounds bilaterally without wheezes rales or rhonchi
Abdomen is obese soft nondistended and nontender
Extremity show plus for lower extremity pretibial edema with skin breakdown bilaterally, more severe on the right
[2024-07-02 12:57] LABS: % Basophils 0.5 % (0-2); % Eosinophils 0.9 % (0-6); % Immature Granulocytes 0.4 % (0-0.5); % Lymphocytes 11.2 % (20.5-51.1); % Monocytes 9.4 % (1.7-9.3); % Neutrophils 77.6 % (42.2-75.2); Absolute Eosinophils 0.1 10^3/uL (0-0.7); Absolute Lymphocytes 0.9 10^3/uL (1.2-3.4); Absolute Monocytes 0.7 10^3/uL (0.1-0.6); Hemoglobin 10.9 g/dL (12.0-16.0); Mean Corp Hgb Conc. 30.3 g/dL (33.0-37.0); Mean Corpuscular Hgb 26.3 pg (27.0-31.0); Mean Platelet Volume 11.1 fL (7.4-10.4); Nucleated Red Blood Cells % 0 %; Platelet Count 246 10^3/uL (130-400); Red Blood Cell Count 4.14 10^6/uL (4.20-5.40); White Blood Cell Count 7.7 10^3/uL (4.8-10.8)
[2024-07-02 14:15] LABS: Glucose - Point of Care 183 mg/dl (70-99)
--- NOTE | 2024-07-02 15:12 | W.PN.HOSP.TC ---
Today's Communication/Plan
-
Continue diuresis
Vladimir bandages bilateral lower extremity
ABG
Continue antibiotics
wean O2 as tolerated
Assessment / Plan
Assessment / Plan
78-year-old female admitted with progressive shortness of breath. Has been short of breath for a while she does not weigh herself for the past 1 year. She also had some productive cough no fever. She could not even transfer from her wheelchair to
the walker. She has been using oxygen which she was prescribed for as needed use has been using it [id number]
Feels better today.
On examination awake alert
Bilateral rales on chest exam
Cardiovascular system S1-S2 appreciated, systolic murmur at aortic area
Abdomen soft and nontender
Bilateral chronic venous stasis changes bilateral edema noted
# Acute respiratory failure secondary to CHF and possible pneumonia
# Acute on chronic HFpEF with moderate aortic stenosis
Volume overloaded
Dietary indiscretion and also she does not weigh herself at home
Continue Lasix 40 mg IV twice daily
Salt and fluid restriction
Intake output charting, daily weights, CHF education
Repeat echo
Cardiology following
Troponin negative
Weight not accurate in bed
She is constantly venous stasis changes. No cellulitis
# Elevated CO2-check ABG
# Pneumonia cannot be ruled out-multiple medication allergies noted. Started doxycycline and watch. Tolerating
# Aortic stenosis moderate per last echo January 2024
# Paroxysmal atrial fibrillation-continue Eliquis, Cardizem
# Hypertension-continue losartan 100 mg daily, diltiazem 250 mg 3 times a day
# Asthma-budesonide, Singulair, as needed neb treatment
# Chronic respiratory failure on as needed oxygen as outpatient
# Lggwzqba-Aevo-Zcuc sliding scale coverage. Hemoglobin A1c 7.4-continue Januvia 100 mg daily, metformin 500 twice daily
# Anemia- B 12 def replace. Iron deficiency-replace
# Hypothyroidism-continue Synthroid 100 mcg daily
# Hypercalcemia-check intact PTH, also vitamin D borderline
# Psoriasis
# Sleep apnea-CPAP
# Hyperlipidemia-continue atorvastatin
# History of nephrolithiasis
# Diverticulosis
# Morbid obesity with a BMI of 55
# DJD/ambulatory dysfunction/osteoarthritis-PT eval
# Glaucoma-continue travoprost eyedrops
# Multiple antibiotic allergies-I told patient as well as daughter that she should follow-up with an water team leader and see if she has true allergies to these antibiotics. Both of them are aware that when and if she needs antibiotics for serious
infections this can be in a way of treating it and she will only get suboptimal antibiotic choices at that time if she is listed as allergic to all these
# DVT prophylaxis-Eliquis
# Full code
Needs rehab. Case management alerted
Discussed with patient's daughter at bedside
Discussed with nurse
Anticipated Discharge: 24 - 48 hours
Subjective/Interval History
-
Date of Service: July 02, 2024
Objective Data
-
Labs:
Laboratory Results
07/02/24 07/02/24 07/02/24
06:00 06:43 12:31
WBC 7.7
Hgb 10.9 L
Hct 36.0 L
Plt Count 246
HCO3
Sodium Cancelled 140
Potassium Cancelled 4.1
Chloride Cancelled 89 L
Carbon Dioxide Cancelled 38 H
BUN Cancelled 27 H
Creatinine Cancelled 0.9
Glucose Cancelled 157 H
Calcium Cancelled 10.4 H
07/02/24
15:09
WBC
Hgb
Hct
Plt Count
HCO3 Pending
Sodium
Potassium
Chloride
Carbon Dioxide
BUN
Creatinine
Glucose
Calcium
Vital Signs:
Vital Signs
Temp Pulse Resp BP Pulse Ox
97.9 F 72 20 141/79 97
07/02/24 11:20 07/02/24 11:20 07/02/24 11:20 07/02/24 11:20 07/02/24 11:20
I&O
07/01/24 07/02/24 07/03/24
06:59 06:59 06:59
Intake Total 120 / 120
Output Total 300 / 300
Balance -180 / -180
[2024-07-02] MEDS: NOVOLOG FLEXPEN-LOW RESISTANCE 1 UNITS SC (15:42)
[2024-07-02 16:26] LABS: B.E. 17.3 mmol/L; O2 Saturation % 43.5 % (94-98); pH 7.36 (7.35-7.45)
[2024-07-02 16:29] LABS: HCO3 46.3 mmol/L (21-28); PCO2 82 mmHg (32-35); PO2 27 mmHg (83-108)
--- NOTE | 2024-07-02 16:36 | W.PN.UPDATE ---
Update Note
Progress Note Update
Primary respiratory acidosis with secondary metabolic alkalosis
BiPAP ordered
She may need to use it with naps and at night every night
Spoke to daughter and updated
Daughter said that since the patient got oxygen she has not been using CPAP at night but using oxygen alone.
I am being told that she needs to move to IMU to do this
total time spent over 50 min today
[2024-07-02] MEDS: LIPITOR 10 MG PO (17:24)
[2024-07-02] MEDS: COLACE 100 MG PO (17:24)
[2024-07-02] MEDS: SINGULAIR 10 MG PO (17:24)
--- NOTE | 2024-07-02 17:30 | PTCARENOTE ---
ABG's obtained and due to critical values PCO2 82 PO[address] Park placed order for Bipap. Pt to be transferred to IMU for this treatment.
[2024-07-02 17:32] LABS: Glucose - Point of Care 127 mg/dl (70-99)
[2024-07-02] MEDS: DUONEB 3 ML INH (20:01)
[2024-07-02] MEDS: SENOKOT PO ×2 (21:09→21:13)
[2024-07-02] MEDS: XALATAN OPHTHALMIC SOLUTION 1 DROP BOTH EYES (21:09)
[2024-07-02 22:26] LABS: Glucose - Point of Care 137 mg/dl (70-99)
[2024-07-03] VITALS (18 sets, daily range): BP systolic 117–143; BP diastolic 53–86; PULSE 2–85; BMI 52.5
--- NOTE | 2024-07-03 00:23 | PTCARENOTE ---
pt transferred from at shift change. pt is oriented but forgetful of events. wearing bipap at this time. NSR on the monitor with audible murmer heard. PW replaced, full bed bath given. able to take pills with water without issues. at
bedside and updated on plan of care. pt oriented to new room, call smith within reach, care ongoing.
[2024-07-03] MEDS: SYNTHROID 100 MCG PO (04:28)
[2024-07-03 04:50] LABS: % Basophils 0.4 % (0-2); % Eosinophils 1.2 % (0-6); % Immature Granulocytes 0.5 % (0-0.5); % Lymphocytes 12.1 % (20.5-51.1); % Monocytes 9.3 % (1.7-9.3); % Neutrophils 76.5 % (42.2-75.2); Absolute Eosinophils 0.1 10^3/uL (0-0.7); Absolute Lymphocytes 0.9 10^3/uL (1.2-3.4); Absolute Monocytes 0.7 10^3/uL (0.1-0.6); Absolute Neutrophils 5.6 10^3/uL (1.4-6.5); Hematocrit 32.7 % (37.0-47.0); Hemoglobin 9.8 g/dL (12.0-16.0); Mean Corpuscular Hgb 26.1 pg (27.0-31.0); Mean Corpuscular Volume 87.2 fL (81.0-99.0); Nucleated Red Blood Cells % 0 %; Platelet Count 228 10^3/uL (130-400); Red Blood Cell Count 3.75 10^6/uL (4.20-5.40); Red Cell Dist. Width 15.9 % (11.5-14.5); White Blood Cell Count 7.4 10^3/uL (4.8-10.8)
[2024-07-03 05:08] LABS: B.E. 17.5 mmol/L; O2 Saturation % 97.7 % (94-98); PO2 84 mmHg (83-108); pH 7.36 (7.35-7.45)
[2024-07-03 05:10] LABS: Blood Urea Nitrogen 26 mg/dl (7-17); Chloride 89 mmol/L (98-107); Estimated Creatinine Clearance 87 ml/min; Glucose 129 mg/dl (70-99); Magnesium 1.6 mg/dl (1.6-2.3); Potassium 3.8 mmol/L (3.5-5.1); Sodium 138 mmol/L (135-145); eGFR > 60.00
[2024-07-03 05:12] LABS: HCO3 46.3 mmol/L (21-28); O2 Therapy bipap; PCO2 82 mmHg (32-35)
[2024-07-03 05:19] LABS: Carbon Dioxide 36 mmol/L (22-30)
[2024-07-03] MEDS: DUONEB 3 ML INH ×2 (08:03→19:41)
[2024-07-03] MEDS: PULMICORT 0.5 MG INH ×2 (08:03→19:41)
[2024-07-03] MEDS: VIBRAMYCIN 100 MG PO ×2 (08:12→20:42)
[2024-07-03] MEDS: CARDIZEM CD 240 MG PO ×3 (08:12→20:42)
[2024-07-03] MEDS: VITAMIN D3 (cholecalciferol) 25 MCG PO (08:12)
[2024-07-03] MEDS: ELIQUIS 5 MG PO ×2 (08:12→20:42)
[2024-07-03] MEDS: ZYRTEC 10 MG PO (08:12)
[2024-07-03] MEDS: FEOSOL 325 MG PO ×2 (08:13→20:42)
[2024-07-03] MEDS: GLUCOPHAGE 500 MG PO ×2 (08:13→16:40)
[2024-07-03] MEDS: COZAAR 100 MG PO (08:13)
[2024-07-03] MEDS: JANUVIA 50 MG PO (08:13)
[2024-07-03] MEDS: CYANOCOBALAMIN 1000 MCG IM (08:18)
[2024-07-03] MEDS: LASIX 40 MG IV ×2 (08:18→16:38)
--- NOTE | 2024-07-03 08:22 | W.PN.HOSP.TC ---
Addendum entered and electronically signed by Zeinab Park MD 07/03/24 12:16:
Spoke to patient's daughter and updated.
Original Note:
Today's Communication/Plan
-
Continue BiPAP
Continue antibiotics
Lasix follow labs
Assessment / Plan
Assessment / Plan
78-year-old female admitted with progressive shortness of breath. Has been short of breath for a while she does not weigh herself for the past 1 year. She also had some productive cough no fever. She could not even transfer from her wheelchair to
the walker. She has been using oxygen which she was prescribed for as needed use has been using it [id number]
Does not like BiPAP
On examination awake alert-on BiPAP
Bilateral rales on chest exam
Cardiovascular system S1-S2 appreciated, systolic murmur at aortic area
Abdomen soft and nontender
Bilateral chronic venous stasis changes bilateral edema noted
# Acute on chronic hypoxic and hypercapnic respiratory failure secondary to CHF , possible pneumonia, noncompliance with CPAP, suspected obesity hypoventilation
# Acute on chronic HFpEF with moderate aortic stenosis
Volume overloaded
Dietary indiscretion and also she does not weigh herself at home
Continue Lasix 40 mg IV twice daily
Salt and fluid restriction
Intake output charting, daily weights, CHF education
Repeat echo
Troponin negative
# Acute hypercapnic respiratory failure-BiPAP ordered. She was not using her CPAP at home for several days prior to coming in because she was using her oxygen only at night.
ABG noted. Rate and tidal volume adjusted
Consult pulmonary
# Pneumonia cannot be ruled out-multiple medication allergies noted. Started doxycycline and watch. Tolerating
# Aortic stenosis moderate per last echo January 2024
# Paroxysmal atrial fibrillation-continue Eliquis, Cardizem
# Hypertension-continue losartan 100 mg daily, diltiazem 250 mg 3 times a day
# Asthma-budesonide, Singulair, as needed neb treatment
# Chronic respiratory failure on as needed oxygen as outpatient
# Snevozif-Cqbs-Ldgv sliding scale coverage. Hemoglobin A1c 7.4-continue Januvia 100 mg daily, metformin 500 twice daily
# Anemia- B 12 def replace. Iron deficiency-replace
# Hypothyroidism-continue Synthroid 100 mcg daily
# Hypercalcemia-check intact PTH, also vitamin D borderline
# Psoriasis
# Sleep apnea-CPAP
# Hyperlipidemia-continue atorvastatin
# History of nephrolithiasis
# Diverticulosis
# Morbid obesity with a BMI of 52
# DJD/ambulatory dysfunction/osteoarthritis-PT eval
# Glaucoma-continue travoprost eyedrops
# Multiple antibiotic allergies-I made patient as well as daughter aware that she should follow-up with an store leader and see if she has true allergies to these antibiotics. Both of them are aware that when and if she needs antibiotics for serious
infections this can be in a way of treating it and she will only get suboptimal antibiotic choices at that time if she is listed as allergic to all these
# DVT prophylaxis-Eliquis
# Full code
Discussed with respiratory at bedside
Discussed with nurse
Left message for daughter
time over 50 min
Anticipated Discharge: > 48 hours
Subjective/Interval History
-
Date of Service: July 03, 2024
Objective Data
-
Labs:
Laboratory Results
07/03/24 07/03/24
04:35 04:50
WBC 7.4
Hgb 9.8 L
Hct 32.7 L
Plt Count 228
HCO3 46.3 H*
Sodium 138
Potassium 3.8
Chloride 89 L
Carbon Dioxide 36 H
BUN 26 H
Creatinine 0.7
Glucose 129 H
Calcium 10.0
Vital Signs:
Vital Signs
Temp Pulse Resp BP Pulse Ox
99.9 F 85 20 119/56 89
07/03/24 04:25 07/03/24 08:18 07/03/24 08:15 07/03/24 08:18 07/03/24 08:15
I&O
07/02/24 07/03/24 07/04/24
06:59 06:59 06:59
Intake Total 780 / 780
Output Total 1100 / 1100
Balance -320 / -320
[2024-07-03] MEDS: MIRALAX PO (08:24)
--- NOTE | 2024-07-03 09:00 | PTCARENOTE ---
Pt recieving breathing treatment, pills taken whole with water. AAOx3 pt forgetful lungs are coarse. Placed back on Bipap by RSP
--- NOTE | 2024-07-03 09:03 | CON.PUL ---
Consultation
Consultation Request
Date/Time Consultation Requested: 07/03/2024 - 816
Date/Time Consultation Performed: 07/03/2024 - 854
Requesting Provider: Dr. Park
Performing Provider: Dr. Castillo
Reason for Consultation: Respiratory failure
Medical History
-
Chief Complaint: Worsening SOB
History of Present Illness:
78-year-old female with a past medical history of CROW on CPAP, interstitial lung disease, asthma, hypertension, hypothyroidism, DM type II, history of ulcerative colitis, history of right lower extremity cellulitis, A-fib on Eliquis and chronic
hypoxic respiratory failure on 2 L/min with activity who presented with worsening shortness of breath and dry cough. The patient is on 2 L/min with activity and also uses 2 L/min through her CPAP, however over the last several days her oxygen
levels were worsening and she stopped wearing her CPAP and instead was wearing up to 6 L/min nasal cannula continuously. Also noted to have worsening lower extremity edema and was sleeping on a chair due to sats significant shortness of breath.
She then started to not able to move from the bed to the chair or walk due to her dyspnea and had chest heaviness. In the ER she was afebrile to 98.4 �F, pulse rate 80, breathing at 24 breaths/min, BP 163/94 and saturating 86% on 6 L/min.
Saturations did improve to 93% on the same amount of O2 at 6 L/min. Labs showed Hb 10.5, proBNP 459, and COVID-19 antigen negative. CXR showed increased bilateral interstitial markings suspicious for acute interstitial/alveolar cardiogenic
pulmonary edema. In the ER she was given 40 mg IV Lasix. She was admitted to the IMU where she continues to be monitored; blood gas obtained on the evening of 07/02/2024 and again on the morning of 07/03/2024 shows acute on chronic hypercapnic
respiratory failure with pH 7.36, pCO2 82. Pulmonary service now consulted for additional management/recommendations.
When I saw the patient she was resting in bed in no acute distress with her daughter at bedside. She is currently on BiPAP 13/11 with VTE 350 cc and blood with 6 L/min. She was saturating 92% with heart rate 77 and BP 135/79. She says that the
mask is too small and she is requesting a new one, or just to take the mask off altogether. She currently denies chest pain, FLORES, nausea, vomiting, fevers or chills.
She follows with us in the office with Dr. Castaneda, last visit 03/09/2024. She is continued on Breo and regarding her history of ILD she has bilateral patchy mosaic attenuation with scattered nodules and minimal bronchiolitis and was advised to
follow with rheumatology. Also has a known left lower lobe 6 mm nodule seen in April 2020 however she was unable to get repeat CT given her weight. She was told to continue with 2 L with activity and 2 L bled into her CPAP.
PMHx: Asthma, hypertension, hypothyroidism, psoriasis, hyperlipidemia, diverticulosis, IBS, glaucoma, DM type II, history of ulcerative colitis, rosacea, fibrocystic breast, history of right lower extremity cellulitis, A-fib on Eliquis, CROW on CPAP,
interstitial lung disease, chronic hypoxic respiratory failure on 2 L/min with activity
PSHx: , D&C hysteroscopy, herniated disc surgery, kidney stone removal surgery
Past Medical History
Past Medical History: Other (Above as per HPI)
Past Surgical History: Other (Above as per HPI)
Social History
Tobacco: Former Smoker
Alcohol: None
Drug: None
Personal:
Living: With Family
Family History
Family History: CAD (Father + mother), Cancer (Mother: Non-Hodgkin's lymphoma, paternal + maternal aunts: Breast cancer, sibling: Liver cancer), Hypertension (Father + mother) and Other (Paternal grandfather + maternal grandmother: Stroke)
Allergies / Home Medications
Allergies
Allergy/AdvReac Type Severity Reaction Status Date / Time
alendronate sodium Allergy esophagus Verified 07/01/24 08:39
[From Fosamax] spasms
cephalexin [From Keflex] Allergy throat Verified 07/01/24 08:39
closed
clarithromycin [From Biaxin] Allergy Hives Verified 07/01/24 08:39
erythromycin base Allergy Rash, Verified 07/01/24 08:39
diarrhea
fentanyl Allergy difficulty Verified 07/01/24 08:39
awakening
from
surgery
fish oil Allergy Unknown Verified 07/01/24 08:39
house dust Allergy sneeze Verified 07/01/24 08:39
hyoscyamine Allergy throat Verified 07/01/24 08:39
tightening
influenza virus vaccine, Allergy Unknown Verified 07/01/24 08:39
specific
latex Allergy Rash Verified 07/01/24 08:39
levalbuterol [From Xopenex] Allergy 'bee sting Verified 07/01/24 08:39
sensation
all over'
levofloxacin [From Levaquin] Allergy difficulty Verified 07/01/24 08:39
breathing
mold Allergy rash/hives/ Verified 07/01/24 08:39
sob
nut - unspecified Allergy Unknown Verified 07/01/24 08:39
Penicillins Allergy Hives Verified 07/01/24 08:39
pneumococcal vaccine Allergy Rash Verified 07/01/24 08:39
shellfish derived Allergy hives/difficulty Verified 07/01/24 08:39
breathing
tetanus and diphtheria Allergy wheezing Verified 07/01/24 08:39
toxoids
vancomycin Allergy Shortness Verified 07/01/24 08:39
of Breath
Home Medications
�Medication �Instructions �Recorded �Confirmed �Last Taken �Type
albuterol sulfate 90 mcg/actuation 90 mcg IH R Q6HPRN PRN asthma 04/05/19 07/01/24 Unknown History
breath activated powder inhaler
(ProAir RespiClick)
cetirizine 10 mg tablet 10 mg PO DAILY 04/05/19 07/01/24 04/04/19 10:00 History
cholecalciferol (vitamin D3) 25 1,000 units PO DAILY 04/05/19 07/01/24 04/04/19 10:00 History
mcg (1,000 unit) tablet
furosemide 40 mg tablet 20 mg PO BID 04/05/19 07/01/24 04/04/19 10:00 History
levothyroxine 100 mcg tablet 100 mcg PO DAILY AT 0700 04/05/19 07/01/24 04/04/19 05:45 History
losartan 50 mg tablet 100 mg PO DAILY 04/05/19 07/01/24 04/04/19 10:00 History
metformin 500 mg tablet 500 mg PO BID@0800,1700 04/05/19 07/01/24 04/04/19 12:30 History
sitagliptin phosphate 100 mg 100 mg PO DAILY 04/05/19 07/01/24 04/04/19 11:00 History
tablet (Januvia)
travoprost 0.004 % eye drops 1 drp BOTH EYES HS 04/05/19 07/01/24 04/04/19 01:00 History
atorvastatin 10 mg tablet 10 mg PO QPM 30 days #30 tabs 04/07/19 07/01/24 Unknown Rx
apixaban 5 mg tablet (Eliquis) 5 mg PO BID 07/01/24 07/01/24 Unknown History
budesonide 0.5 mg/2 mL suspension 0.5 mg inhalation R BIDPRN PRN sob 07/01/24 07/01/24 Unknown History
for nebulization
diltiazem HCl 240 mg 240 mg PO TID 07/01/24 07/01/24 Unknown History
capsule,extended release 24 hr
docusate sodium 100 mg capsule 100 mg PO QPM 07/01/24 07/01/24 Unknown History
ipratropium 0.5 mg-albuterol 3 mg 3 ml inhalation R BID 07/01/24 07/01/24 Unknown History
(2.5 mg base)/3 mL nebulization
soln
light mineral oil 1 %-mineral oil 1 drp ophthalmic (eye) TIDPRN PRN 07/01/24 07/01/24 Unknown History
4.5 % eye drops (Soothe XP) both eyes
mesalamine 1.2 gram tablet,delayed 2.4 g PO DAILY 07/01/24 07/01/24 Unknown History
release
methylcellulose (laxative) 500 mg 500 mg PO QPM 07/01/24 07/01/24 Unknown History
tablet (Citrucel)
montelukast 10 mg tablet 10 mg PO QPM 07/01/24 07/01/24 Unknown History
sodium chloride 0.65 % nasal spray 1 spray intranasal TIDPRN PRN 07/01/24 07/01/24 Unknown History
aerosol dryness
triamcinolone acetonide 55 mcg 1 spray intranasal DAILY 07/01/24 07/01/24 Unknown History
nasal spray aerosol (Nasacort)
Review of Systems
-
History Source: Patient
All other systems: Negative unless noted
Vitals / Labs / Diagnostic Testing
Vital Signs
Temp Pulse Resp BP Pulse Ox
99.9 F 85 20 119/56 89
07/03/24 04:25 07/03/24 08:18 07/03/24 08:15 07/03/24 08:18 07/03/24 08:15
Lab Data
07/03/24 04:35
07/03/24 04:35
Laboratory Results
07/02/24 07/03/24
16:17 04:50
pH 7.36 7.36
pCO2 82 H* 82 H*
pO2 27 L* 84
HCO3 46.3 H* 46.3 H*
O2 Delivery Level bipap
Microbiology
07/01/24 10:03 Nasal Swab Influenza Types A & B (JEOVANNY) - Final
Negative for Influenza A & B, NAAT
Negative results must be combined with clinical observations
and patient history.
Nucleic Acid Amplification test (NAAT)performed on the
[facility] platform.
Diagnostic Testing:
Physical Exam
-
HEENT: Normocephalic, Anicteric and Other (thick neck)
Cardiovascular: S1/S2, Murmur (ARIELLA heard across precordium) and Peripheral Edema (+1 lower extreme edema bilaterally)
Respiratory: Wheeze (negative), Rales (bibasilar), Rhonchi (negative), Non-Labored Respirations and Other (Diminished breath sounds due to body habitus)
GI: Soft, Distended (Severe abdominal obesity), Non Tender and Normal Bowel Sounds
Neurology: AO x 3 and Tremors (negative)
Skin: Warm and Dry
General: Respiratory Distress (negative), Comfortable, Fever (negative) and Chills (negative)
Assessment
-
Assessment: 78-year-old female with a past medical history of CROW on CPAP, interstitial lung disease, asthma, hypertension, hypothyroidism, DM type II, history of ulcerative colitis, history of right lower extremity cellulitis, A-fib on Eliquis and
chronic hypoxic respiratory failure on 2 L/min with activity who presented with worsening shortness of breath and dry cough. The patient is on 2 L/min with activity and also uses 2 L/min through her CPAP, however over the last several days her
oxygen levels were worsening and she stopped wearing her CPAP and instead was wearing up to 6 L/min nasal cannula continuously. Also noted to have worsening lower extremity edema and was sleeping on a chair due to sats significant shortness of
breath. She then started to not able to move from the bed to the chair or walk due to her dyspnea and had chest heaviness. In the ER she was afebrile to 98.4 �F, pulse rate 80, breathing at 24 breaths/min, BP 163/94 and saturating 86% on 6 L/min.
Saturations did improve to 93% on the same amount of O2 at 6 L/min. Labs showed Hb 10.5, proBNP 459, and COVID-19 antigen negative. CXR showed increased bilateral interstitial markings suspicious for acute interstitial/alveolar cardiogenic
pulmonary edema. In the ER she was given 40 mg IV Lasix. She was admitted to the IMU where she continues to be monitored; blood gas obtained on the evening of 07/02/2024 and again on the morning of 07/03/2024 shows acute on chronic hypercapnic
respiratory failure with pH 7.36, pCO2 82. Pulmonary service now consulted for additional management/recommendations.
Chronic conditions [employer]: Asthma, hypertension, hypothyroidism, psoriasis, hyperlipidemia, diverticulosis, IBS, glaucoma, DM type II, history of ulcerative colitis, rosacea, fibrocystic breast, history of right lower extremity cellulitis, A-fib on
Eliquis, CROW on CPAP, interstitial lung disease, chronic hypoxic respiratory failure on 2 L/min with activity
Impression:
#Acute respiratory failure with hypoxia
#Acute on chronic respiratory failure with hypercapnia
#Acute decompensated heart failure with increased bilateral interstitial markings and groundglass opacities seen on CXR from 07/01/2024
#Metabolic alkalosis due to chronic hypercapnic respiratory failure/OHS
#Acute anemia
#Chronic diastolic heart failure with TTE from 02/15/2024 showing stage II diastolic dysfunction with moderate with peak/mean gradients of 38/24 mmHg and borderline moderate PH with PASP 39
#Severe morbid obesity with BMI: 52.5
#History of asthma on Breo at home with Duonebs + prn budesonide
#CROW/OHS on nocturnal CPAP as an outpatient bled with 2L/min
#DM type II
#History of ulcerative colitis
#History of ILD with CT chest from 05/06/2021 showing bilateral mosaic attenuation with scattered subpleural nodules and bronchiolitis
#A-fib on Eliquis
Plan:
- Continue IV lasix with 40mg BID and maintain net negative fluid balance
- Re-check echo as last done in January 2024
- Continue with BiPAP and titrate O2 flow rate to maintain SpO2 >90%
- Ideally would give a break from the BiPAP and use with sleep and prn during the day; will transition to high flow nasal cannula now
- The pH of the last 2 blood gases since admission have been 7.36, her pCO2 is near baseline and she is well compensated; baseline pCO2 approximately 85�88
- Although CXR shows a retrocardiac opacity + right upper lobe opacity, suspect that this is alveolar edema and not pneumonia, especially given the lack of leukocytosis since admission
- Continue to monitor WBC and trend temperature curve, and if she spikes a fever then would noonan-culture and consider starting empiric antibiotics at that time
- She takes budesonide BID prn and DuoNebs BID at home --> continue both these while inpatient
- prn nebulized bronchodilators - not currently bronchospastic
- Incentive spirometer encouraged q1hr while awake
- Replete electrolytes with K>4, Mg>2
- Trend H/H and transfuse if needed to keep Hb>7g/dL; keep plt>20k, unless there is concern for bleeding then keep plt>50k
- Maintain euglycemia with goal BG >100 and <180
- DVT ppx: Eliquis
Pulmonary service will continue to follow along. Patient advised to continue following up with us in the office as she follows with Dr. Castaneda (last visit on 03/09/2024); next visit scheduled for 07/20/2024 at 1:30 PM with CECIL Mancia, and
then on 07/25/[address] Castaneda
Data:
CXR 07/03/2024:
Limited study with extremely low lung volumes again noted.
Cardiomegaly again seen.
Bilateral prominent interstitial markings and some predominantly bibasilar groundglass opacity again seen, possibly representing acute interstitial and alveolar pulmonary edema. No pneumothorax.
Total time spent today was 56 minutes for this encounter. Time includes reviewing laboratory test/imaging results, reviewing pertinent medical records, obtaining and reviewing medical history, performing an appropriate exam, ordering medications,
tests and procedures. Time also includes documentation of this encounter, coordinating patient care and communicating with other healthcare professionals. Total time does not include separately billed tests performed on this date of service.
[2024-07-03 09:16] LABS: Glucose - Point of Care 125 mg/dl (70-99)
--- NOTE | 2024-07-03 09:49 | PTCARENOTE ---
Pt shania in room states pt wants to come off mask for a sip of water rsp notified.
[2024-07-03] MEDS: NOVOLOG FLEXPEN-LOW RESISTANCE SC ×3 (10:09→17:20)
[2024-07-03 12:59] LABS: Glucose - Point of Care 107 mg/dl (70-99)
--- NOTE | 2024-07-03 13:33 | W.PN.CARDCBS ---
Today's Communication / Plan
-
Continue IV furosemide
Impression / Plan
-
Assessment:
Acute decompensated heart failure with preserved ejection fraction
Aortic stenosis last graded as moderate January 2024
Obstructive sleep apnea
Interstitial lung disease
She has a history of connective tissue disease, possibly Sjogren's, SS-A positive, BGMA Granulomatosis/polyangitis�
Essential hypertension
Paroxysmal atrial fibrillation
8.4% burden on outpatient monitoring December 2023
Maintained on Eliquis anticoagulation for atrial fibrillation related thromboembolic risk reduction
Morbid obesity
Chronic lymphedema
Diabetes mellitus, type II
Ulcerative colitis
Hypothyroidism
Echocardiogram February 15, 2024 finds LVEF of 60-65% with no wall motion abnormality. Left atrium is mildly dilated. There is moderate aortic stenosis with peak and mean gradients of 38 and 24 mmHg.
Recommendations:
With respiratory failure that is multifactorial related to morbid obesity, HFpEF, aortic stenosis and inner stitcher lung disease. She has hypercapnia and hypercarbia. Her pH is 7.36, with a pCO2 that is 82. Given this complex acid-base
physiology, although I would like to add acetazolamide this is probably best avoided. Additional diuresis will likely make hypercarbia worse in turn decreasing respiratory drive.
Continue IV Lasix for now.
Await echocardiogram
Options limited given patient's comorbidities.
Progress Note - Blood Bank Attendant
Subjective
Date of Service: July 03, 2024:
78-year-old woman admitted on July 01 with multifactorial dyspnea with acute on chronic HFpEF, moderate aortic stenosis, and hypercapnic respiratory failure with interstitial lung disease and obesity.
PMH HFpEF, moderate aortic stenosis, obstructive sleep apnea, interstitial lung disease, connective tissue disease, PAF, morbid obesity, diabetes, ulcerative colitis, hypothyroidism, hypertension
Medications: Apixaban 5 mg twice daily, atorvastatin 10 mg daily, Pulmicort, Zyrtec, diltiazem ER 240 mg 3 times daily, Colace, levothyroxine, losartan 100 mg a day, mesalamine, Singulair, doxycycline, B12, furosemide 40 IV twice daily, MiraLAX,
DuoNebs, metformin, Januvia
119/56, pulse 85, respiratory 20, afebrile, weight is 130 kg, up 0.6 kg if accurate, weight was 137.9 kg on July 01, patient with BiPAP, rales in lungs, aortic stenosis murmur, currently in sinus rhythm, edema, abdominal adiposity, communicative,
nonfocal, and daughter at bedside.
Hemoglobin 9.8, white count 7.4, platelets 228, 7.36, pCO2 82, HCO3 is 46.3, on BiPAP, BUN and creatinine are 26 and 0.7, potassium is 3.8, bicarbonate on basic metabolic is 36
Chest x-ray today, cardiomegaly vascular congestion, possible small effusions, massive obesity
Telemetry: Currently sinus
Objective
Labs:
07/03/24 04:35
07/03/24 04:35
Labs
Hgb 9.8 g/dL (12.0-16.0) L 07/03/24 04:35
Hct 32.7 % (37.0-47.0) L 07/03/24 04:35
Plt Count 228 10^3/uL (130-400) 07/03/24 04:35
Sodium 138 mmol/L (135-145) 07/03/24 04:35
Potassium 3.8 mmol/L (3.5-5.1) 07/03/24 04:35
BUN 26 mg/dl (7-17) H 07/03/24 04:35
Creatinine 0.7 mg/dL (0.6-1.0) 07/03/24 04:35
Glucose 129 mg/dl (70-99) H 07/03/24 04:35
Troponins
07/01/24 07/01/24
09:17 18:53
Troponin I < 0.012 < 0.012
Vital Signs and I&O:
Vital Signs
Temp Pulse Resp BP Pulse Ox
37.6 C 85 20 119/56 93
07/03/24 11:05 07/03/24 08:18 07/03/24 08:15 07/03/24 08:18 07/03/24 12:45
Vital Signs
Temp Pulse Resp BP Pulse Ox
37.6 C 85 20 119/56 93
07/03/24 11:05 07/03/24 08:18 07/03/24 08:15 07/03/24 08:18 07/03/24 12:45
Intake & Output
07/01/24 07/02/24 07/03/24 07/04/24
07:59 07:59 07:59 07:59
Intake Total 120 / 120 660 / 660
Output Total 300 / 300 800 / 800
Balance -180 / -180 -140 / -140
Physical Exam
Physical Exam
See above
--- NOTE | 2024-07-03 13:41 | CM ---
Patient with Hx HF, morbid obesity, ambulatory dysfunction. O2 6L increased to high flow 40L. Receiving IV Lasix. PT/OT; requires assist of 2, recommmend skilled rehab.
Met with patient and daughter Iesha;
the patient resides with her in a 1 story house with ramp at entrance.
She is assisted with ADLs such as sponge bathing by the .
Patient sleeps in bed wtih HOB that elevates. She transports OOB to w/c, then to RW and walks a short distance to bathroom.
Patient's has been having difficulty pushing her w/c due to patient's weight, and also trouble lifting her power w/c into the car to get her to medical appointments.
does wound care for patient's legs.
Patient/daughter report that patient has long goods drier care insurance and may have benefits for caregiver services at home- encouraged daughter to look into that.
DME - RW, w/c, transport w/c, electric w/c, scooter, CPAP, wound care supplies, home O2 6L - has 10L concentrator and portables (patient/daughter unable to remember DME company for O2).
Prior [facility]N with [facility].
No prior SNF.
PCP - [facility]
Pharmacy - [facility]
Patient has 1 daughter Iesha, who is a Principal at a local school.
Patient has a stepson who lives further away and is less involved.
Discussed short term SNF for rehab. Provided [facility] list and reviewed [facility] ratings. Daughter agrees to referrals to several local SNFs and may want to tour some facilities once known if they are interested/have an available bed. SNF referrals
placed.
Plan follow patient's O2 needs.
Plan follow up SNF referrals.
--- NOTE | 2024-07-03 14:15 | WOUNDNOTE ---
Juna Carlos LEG
--- NOTE | 2024-07-03 14:15 | WOUNDNOTE ---
WON RN note: Patient admitted with CHF Hypoxia.
See H&P for complete history. Lives with .
PMH: Obesity, Lymphedema, tingling arms and legs, A Fib, HTN, RF, stress incontinence, venous leg ulcers.
Wound Location and type/assessment: Patient admitted with: Lymphedema and chronic redness/hemosiderin staining of both legs. Daughter at bedside report legs are much less swollen compared to admission. Distal anterior legs with dry scaly skin, no
open wounds. Using CeraVe own moisturizer and Tubigrip in past for compression. Patient request using own moisturizer while here. Heels are intact, pillow placed under calves. Patient reports pain in feet, R>L, not new. at bedside reports
healed cysts on buttocks. Daughter attempted to assist with turning patient but unable to visualize sacrum at this time. HALIMA Casanova confirmed she will assess sacrum next time patient being turned. Mild MASD in skin folds.
Appetite: Good.
Pressure redistribution devices in place: Centrella air, can be on Accumax, if transferred consider bariatric bed.
Plan: Continue to moisturize legs with CeraVe at bedside daily. Applied Tubigrip knee high size F, can be removed at hs. Patient was reluctant to use compression since feet hurt but tolerating so far. Nurse Casanova updated on the above.
Will confirm orders with hospitalist. Updated care plan and will follow as needed.
Note to case management of equipment requested for discharge: None
--- NOTE | 2024-07-03 15:20 | PTCARENOTE ---
Pt daughter states pt seems disoriented after she eats . and would like us to watch for this.Pt now on Bipap
[2024-07-03] MEDS: TYLENOL 1000 MG PO (16:37)
[2024-07-03] MEDS: OCEAN, SALINE MIST 1 SPRAYS NASAL (16:38)
[2024-07-03 17:18] LABS: Glucose - Point of Care 133 mg/dl (70-99)
[2024-07-03] MEDS: KCL 40 MEQ PO (17:35)
[2024-07-03] MEDS: MAGNESIUM OXIDE 500 MG PO (17:35)
[2024-07-03] MEDS: COLACE 100 MG PO (17:36)
[2024-07-03] MEDS: SINGULAIR 10 MG PO (17:36)
[2024-07-03] MEDS: LIPITOR 10 MG PO (17:36)
[2024-07-03] MEDS: SENOKOT PO (20:43)
[2024-07-03] MEDS: XALATAN OPHTHALMIC SOLUTION 1 DROP BOTH EYES (20:43)
[2024-07-03 21:36] LABS: Glucose - Point of Care 146 mg/dl (70-99)
[2024-07-04] VITALS (15 sets, daily range): BP systolic 105–148; BP diastolic 55–98; PULSE 2–126; O2SAT 92; BMI 52.2
--- NOTE | 2024-07-04 00:18 | PTCARENOTE ---
assumed care of patient. pt is AAOx3, able to make needs known. family at bedside. on HFNC 40L 60%, 90%, pt placed on bipap HS. able to take her pills without issues. pt states all the medication makes her stomach hurt, encouraged her to eat some
saltines before taking pills. PW intact. q2t. care ongoing.
[2024-07-04] MEDS: TYLENOL 1000 MG PO ×3 (02:08→20:28)
[2024-07-04] MEDS: SYNTHROID 100 MCG PO (05:12)
[2024-07-04 05:42] LABS: Hemoglobin 10.4 g/dL (12.0-16.0); Mean Corp Hgb Conc. 30.6 g/dL (33.0-37.0); Mean Corpuscular Hgb 26.4 pg (27.0-31.0); Mean Corpuscular Volume 86.3 fL (81.0-99.0); Mean Platelet Volume 11.3 fL (7.4-10.4); Platelet Count 234 10^3/uL (130-400); Red Blood Cell Count 3.94 10^6/uL (4.20-5.40); Red Cell Dist. Width 15.9 % (11.5-14.5); White Blood Cell Count 9.3 10^3/uL (4.8-10.8)
[2024-07-04 05:59] LABS: Blood Urea Nitrogen 23 mg/dl (7-17); Chloride 89 mmol/L (98-107); Estimated Creatinine Clearance 76 ml/min; Glucose 144 mg/dl (70-99); Potassium 3.7 mmol/L (3.5-5.1); Sodium 139 mmol/L (135-145); eGFR > 60.00
[2024-07-04 06:09] LABS: Carbon Dioxide 37 mmol/L (22-30)
[2024-07-04] MEDS: VIBRAMYCIN 100 MG PO ×2 (07:34→20:28)
[2024-07-04] MEDS: NOVOLOG FLEXPEN-LOW RESISTANCE SC (07:34)
[2024-07-04 07:35] LABS: Glucose - Point of Care 132 mg/dl (70-99)
[2024-07-04] MEDS: LASIX 40 MG IV ×2 (07:35→15:51)
[2024-07-04] MEDS: CYANOCOBALAMIN 1000 MCG IM (07:37)
[2024-07-04] MEDS: MAGNESIUM OXIDE 500 MG PO (07:38)
[2024-07-04] MEDS: GLUCOPHAGE 500 MG PO ×2 (07:38→17:13)
[2024-07-04] MEDS: COZAAR PO (07:39)
[2024-07-04] MEDS: JANUVIA 50 MG PO (07:39)
[2024-07-04] MEDS: KCL 20 MEQ PO (07:40)
[2024-07-04] MEDS: ZYRTEC 10 MG PO (07:41)
[2024-07-04] MEDS: CARDIZEM CD PO (07:41)
[2024-07-04] MEDS: VITAMIN D3 (cholecalciferol) 25 MCG PO (07:41)
[2024-07-04] MEDS: FEOSOL 325 MG PO ×2 (07:42→20:28)
[2024-07-04] MEDS: ELIQUIS 5 MG PO ×2 (07:42→20:28)
[2024-07-04] MEDS: MIRALAX PO (07:44)
--- NOTE | 2024-07-04 07:53 | PTCARENOTE ---
Pt AAOx3 eating breakfast on HF states she is tired . meds given as ordered. Compression socks on legs.
[2024-07-04] MEDS: PULMICORT 0.5 MG INH ×2 (08:08→19:20)
[2024-07-04] MEDS: DUONEB 3 ML INH ×2 (08:08→19:20)
--- NOTE | 2024-07-04 08:11 | W.PN.PUL3 ---
Today's Communication / Plan
-
Nebulized bronchodilators with Xopenex + Atrovent
Continue budesonide
Aggressive diuresis to maintain net negative fluid balance as tolerated
Goal HR <110
Avoid amiodarone if possible
Up OOB as tolerated
BiPAP with sleep and prn during the day
Wean down FiO2 on high flow nasal cannula as tolerated while keeping SpO2 >90%
Pulmonary service will continue to follow along
Assessment
-
Assessment: 78-year-old female with a past medical history of CROW on CPAP, interstitial lung disease, asthma, hypertension, hypothyroidism, DM type II, history of ulcerative colitis, history of right lower extremity cellulitis, A-fib on Eliquis and
chronic hypoxic respiratory failure on 2 L/min with activity who presented with worsening shortness of breath and dry cough. The patient is on 2 L/min with activity and also uses 2 L/min through her CPAP, however over the last several days her
oxygen levels were worsening and she stopped wearing her CPAP and instead was wearing up to 6 L/min nasal cannula continuously. Also noted to have worsening lower extremity edema and was sleeping on a chair due to sats significant shortness of
breath. She then started to not able to move from the bed to the chair or walk due to her dyspnea and had chest heaviness. In the ER she was afebrile to 98.4 �F, pulse rate 80, breathing at 24 breaths/min, BP 163/94 and saturating 86% on 6 L/min.
Saturations did improve to 93% on the same amount of O2 at 6 L/min. Labs showed Hb 10.5, proBNP 459, and COVID-19 antigen negative. CXR showed increased bilateral interstitial markings suspicious for acute interstitial/alveolar cardiogenic
pulmonary edema. In the ER she was given 40 mg IV Lasix. She was admitted to the IMU where she continues to be monitored; blood gas obtained on the evening of 07/02/2024 and again on the morning of 07/03/2024 shows acute on chronic hypercapnic
respiratory failure with pH 7.36, pCO2 82. Pulmonary service now consulted for additional management/recommendations.
Chronic conditions [employer]: Asthma, hypertension, hypothyroidism, psoriasis, hyperlipidemia, diverticulosis, IBS, glaucoma, DM type II, history of ulcerative colitis, rosacea, fibrocystic breast, history of right lower extremity cellulitis, A-fib on
Eliquis, CROW on CPAP, interstitial lung disease, chronic hypoxic respiratory failure on 2 L/min with activity
Impression:
#Acute respiratory failure with hypoxia
#Acute on chronic respiratory failure with hypercapnia
#Acute decompensated heart failure with increased bilateral interstitial markings and groundglass opacities seen on CXR from 07/01/2024
#Metabolic alkalosis due to chronic hypercapnic respiratory failure/OHS
#Acute anemia
#Chronic diastolic heart failure with TTE from 02/15/2024 showing stage II diastolic dysfunction with moderate with peak/mean gradients of 38/24 mmHg and borderline moderate PH with PASP 39
#Severe morbid obesity with BMI: 52.5
#History of asthma on Breo at home with Duonebs + prn budesonide
#CROW/OHS on nocturnal CPAP as an outpatient bled with 2L/min
#DM type II
#History of ulcerative colitis
#History of ILD with CT chest from 05/06/2021 showing bilateral mosaic attenuation with scattered subpleural nodules and bronchiolitis
#Paroxysmal A-fib with RVR on Eliquis
#Chronic lymphedema
Plan:
- Continue IV lasix with 40mg BID and maintain net negative fluid balance
- Echo rechecked on 07/04/24 showing hyperdynamic LV systolic function with LVEF 65-70%, with normal RV size and function, moderate with peak/mean gradients of 40/21 mmHg, respectively, with trace MR, and mild TR with a trivial pericardial
effusion --> no significant change compared to prior echo in January 2024
- Continue with nocturnal BiPAP and prn during the day; titrate O2 flow rate to maintain SpO2 >90%
- Continue high flow during the day with goal sats as above
- The pH of the last 2 blood gases since admission have been 7.36, her pCO2 is near baseline and she is well compensated; baseline pCO2 approximately 85�88 --> recheck VBG tomorrow AM
- Although CXR shows a retrocardiac opacity + right upper lobe opacity, suspect that this is alveolar edema and not pneumonia, especially given the lack of leukocytosis since admission
- Continue to monitor WBC and trend temperature curve, and if she spikes a fever then would noonan-culture and consider starting empiric antibiotics at that time
- She takes budesonide BID prn and DuoNebs BID at home --> continue both these while inpatient but change DuoNebs to Xopenex + Atrovent given she is now in A-fib with RVR
- prn nebulized bronchodilators - not currently bronchospastic
- A fib management per cardiology
- Given her history of ILD, would avoid amiodarone if possible
- Goal HR<110bpm
- Perhaps digoxin would be possible if BP too tenuous for raising her CCB dose or starting a beta-mirian
- I will change her DuoNebs to Xopenex + Atrovent to help reduce beta agonist stimulation
- Incentive spirometer encouraged q1hr while awake
- Replete electrolytes with K>4, Mg>2
- Trend H/H and transfuse if needed to keep Hb>7g/dL; keep plt>20k, unless there is concern for bleeding then keep plt>50k
- Maintain euglycemia with goal BG >100 and <180
- DVT ppx: Eliquis
Pulmonary service will continue to follow along. Patient advised to continue following up with us in the office as she follows with Dr. Castaneda (last visit on 03/09/2024); next visit scheduled for 07/20/2024 at 1:30 PM with CECIL Mancia, and
then on 07/25/[address] Castaneda
Data:
CXR 07/03/2024:
Limited study with extremely low lung volumes again noted.
Cardiomegaly again seen.
Bilateral prominent interstitial markings and some predominantly bibasilar groundglass opacity again seen, possibly representing acute interstitial and alveolar pulmonary edema. No pneumothorax.
Total time spent today was 36 minutes for this encounter. Time includes reviewing laboratory test/imaging results, reviewing pertinent medical records, obtaining and reviewing medical history, performing an appropriate exam, ordering medications,
tests and procedures. Time also includes documentation of this encounter, coordinating patient care and communicating with other healthcare professionals. Total time does not include separately billed tests performed on this date of service.
Subjective Data
-
Date of Service:
Date of Service: July 04, 2024
Chief Complaint: Pulmonary Follow Up
Subjective:
Patient seen and evaluated today at bedside. Currently on high flow nasal cannula at 50% FiO2, 50 L/min, saturating 92% with heart rate 108 and BP 124/83. Patient's , daughter, at bedside and all questions were answered. She denies a cough
or shortness of breath at rest. Her main complaint is constipation. Went into A-fib with RVR overnight. She wore BiPAP overnight on 05/04 bled with 6 L/min. Currently denies chest pain, FLORES, nausea, fevers or chills.
Review of Systems
General: Other (Negative unless mentioned above)
Objective Data
Data Reviewed
Vital Signs / I&O / Oxygen:
Vital Signs
Temp Pulse Resp BP Pulse Ox
98.7 F 111 21 105/73 93
07/04/24 05:42 07/04/24 07:41 07/04/24 06:00 07/04/24 07:41 07/04/24 06:00
Intake and Output
07/03/24 07/04/24 07/05/24
06:59 06:59 06:59
Intake Total 780 / 780
Output Total 1100 / 1100 1700 / 1700
Balance -320 / -320 -1700 / -1700
SaO2 93
Nasal Cannula flow liters per 40
minute
Physical Exam
General: Respiratory Distress (negative), Comfortable, Chills (negative) and Sweats (negative)
HEENT: Normocephalic, Anicteric and Other (thick neck)
Cardiovascular: Irregular Rhythm (Irregularly irregular), Peripheral Edema (+1 lower extremity pitting edema bilaterally) and Other (Tachycardic)
Respiratory: Wheeze (negative), Crackles (Bibasilar), Rhonchi (negative), Non-Labored Respirations, Stridor (negative) and Other (Diminished breath sounds due to body habitus)
GI: Soft, Distended (Significant abdominal obesity), Non Tender and Normal Bowel Sounds
Neurology: AO x 3 and Tremors (negative)
Skin: Warm, Dry, Cyanosis (negative) and Jaundice (negative)
Labs/Micro/Reports
Lab Data
07/04/24 05:19
07/04/24 05:19
Microbiology
07/01/24 10:03 Nasal Swab Influenza Types A & B (JEOVANNY) - Final
Negative for Influenza A & B, NAAT
Negative results must be combined with clinical observations
and patient history.
Nucleic Acid Amplification test (NAAT)performed on the
C4M platform.
--- NOTE | 2024-07-04 10:23 | W.PN.HOSP.TC ---
Addendum entered and electronically signed by Zeinab Park MD 07/04/24 10:32:
If hypoxia is not improving we will need to consider steroids.
Original Note:
Today's Communication/Plan
-
Currently on high flow
Encourage BiPAP during naps and also throughout the night
Continue gentle diuresis
Wean oxygen as tolerated
Assessment / Plan
Assessment / Plan
78-year-old female admitted with progressive shortness of breath. Has been short of breath for a while she does not weigh herself for the past 1 year. She also had some productive cough no fever. She could not even transfer from her wheelchair to
the walker. She has been using oxygen which she was prescribed for as needed use has been using it [id number]
Does not like BiPAP, On high flow now
On examination awake alert-on BiPAP
Bilateral rales on chest exam
Cardiovascular system S1-S2 appreciated, systolic murmur at aortic area
Abdomen soft and nontender
Bilateral chronic venous stasis changes ,bilateral edema better
# Acute on chronic hypoxic and hypercapnic respiratory failure secondary to CHF , possible pneumonia, noncompliance with CPAP, suspected obesity hypoventilation
# Acute on chronic HFpEF with moderate aortic stenosis
Volume overloaded
Dietary indiscretion and also she does not weigh herself at home
Continue Lasix 40 mg IV twice daily
Salt and fluid restriction
Intake output charting, daily weights, CHF education
Agree with Dr. Sy, Diamox would cause more CO2 retention therefore best avoided.
Patient does have respiratory acidosis and metabolic alkalosis, metabolic alkalosis is making hypoxia worse.
Repeat echo
Troponin negative
# Acute hypercapnic respiratory failure-BiPAP ordered. She was not using her CPAP at home for several days prior to coming in because she was using her oxygen only at night.
ABG noted.
Encourage BiPAP as much as she can.
With a baseline pCO2 of 82 while I agree , that she is not symptomatic now , she does not have Much room for worsening pCO2 before it makes her symptomatic.
Pulmonary consultation appreciated
# Pneumonia cannot be ruled out-multiple medication allergies noted. Started doxycycline and watch. Tolerating. Repeat chest [id number]-[id number] edema
# Aortic stenosis moderate per last echo January 2024
# Paroxysmal atrial fibrillation-continue Eliquis, Cardizem
# Hypertension-continue losartan 100 mg daily, diltiazem 250 mg 3 times a day
# Asthma-budesonide, Singulair, as needed neb treatment
# Chronic respiratory failure on as needed oxygen as outpatient
# Vygnaoyi-Jwdq-Wfqk sliding scale coverage. Hemoglobin A1c 7.4-continue Januvia 100 mg daily, metformin 500 twice daily
# Anemia- B 12 def replace. Iron deficiency-replace
# Hypothyroidism-continue Synthroid 100 mcg daily
# Hypercalcemia-check intact PTH, also vitamin D borderline
# Psoriasis
# Sleep apnea-CPAP
# Hyperlipidemia-continue atorvastatin
# History of nephrolithiasis
# Diverticulosis
# Morbid obesity with a BMI of 52
# DJD/ambulatory dysfunction/osteoarthritis-PT eval
# Glaucoma-continue travoprost eyedrops
# Multiple antibiotic allergies-I made patient as well as daughter aware that she should follow-up with an manual machinist and see if she has true allergies to these antibiotics. Both of them are aware that when and if she needs antibiotics for serious
infections this can be in a way of treating it and she will only get suboptimal antibiotic choices at that time if she is listed as allergic to all these
# DVT prophylaxis-Eliquis
# Full code
Discussed with nurse
time over 50 min
Anticipated Discharge: > 48 hours
Subjective/Interval History
-
Date of Service: July 04, 2024
Objective Data
-
Labs:
Laboratory Results
07/04/24
05:19
WBC 9.3
Hgb 10.4 L
Hct 34.0 L
Plt Count 234
Sodium 139
Potassium 3.7
Chloride 89 L
Carbon Dioxide 37 H
BUN 23 H
Creatinine 0.8
Glucose 144 H
Calcium 10.0
Vital Signs:
Vital Signs
Temp Pulse Resp BP Pulse Ox
98 F 112 20 105/73 91
07/04/24 07:15 07/04/24 08:09 07/04/24 08:09 07/04/24 07:41 07/04/24 08:13
I&O
07/03/24 07/04/24 07/05/24
06:59 06:59 06:59
Intake Total 780 / 780
Output Total 1100 / 1100 1700 / 1700 200 / 200
Balance -320 / -320 -1700 / -1700 -200 / -200
[2024-07-04 11:42] LABS: Glucose - Point of Care 277 mg/dl (70-99)
[2024-07-04] MEDS: NOVOLOG FLEXPEN-LOW RESISTANCE 3 UNITS SC (11:50)
--- NOTE | 2024-07-04 12:41 | W.PN.CARDCBS ---
Addendum entered and electronically signed by Hood Sy MD 07/04/24 19:14:
78-year-old woman admitted on July 01 with multifactorial dyspnea with acute on chronic HFpEF, moderate aortic stenosis, and hypercapnic respiratory failure with interstitial lung disease and obesity.
PMH HFpEF, moderate aortic stenosis, obstructive sleep apnea, interstitial lung disease, connective tissue disease, PAF, morbid obesity, diabetes, ulcerative colitis, hypothyroidism, hypertension
Medications: Apixaban 5 mg twice daily, atorvastatin 10 mg a day, Zyrtec, diltiazem ER 240 mg 3 times daily, Colace, levothyroxine 100 mcg daily, losartan 100 mg a day, Singulair, Xalatan, insulin, doxycycline, vitamin B12, furosemide 40 IV twice
daily, iron, metformin 500 twice daily, Januvia, potassium, magnesium
105/73, pulse 112, respiratory rate 20, afebrile, sats 91% on high flow, intake and output incomplete, weight is 129.3 kg, if accurate down 0.8 kg, admission weight recorded as 137.9 kg
Hemoglobin 10.4, white count 9.3, platelets 234, BUN and creatinine 23 and 0.8, potassium 3.7, bicarbonate 37
Echo is pending
Telemetry: Back in [facility] with rapid ventricular response
78-year-old woman admitted on July 01 with multifactorial dyspnea with acute on chronic HFpEF, moderate aortic stenosis, and hypercapnic respiratory failure with interstitial lung disease and obesity.
PMH HFpEF, moderate aortic stenosis, obstructive sleep apnea, interstitial lung disease, connective tissue disease, PAF, morbid obesity, diabetes, ulcerative colitis, hypothyroidism, hypertension
Medications: Apixaban 5 mg twice daily, atorvastatin 10 mg a day, Zyrtec, diltiazem ER 240 mg 3 times daily, Colace, levothyroxine 100 mcg daily, losartan 100 mg a day, Singulair, Xalatan, insulin, doxycycline, vitamin B12, furosemide 40 IV twice
daily, iron, metformin 500 twice daily, Januvia, potassium, magnesium
105/73, pulse 112, respiratory rate 20, afebrile, sats 91% on high flow, intake and output incomplete, weight is 129.3 kg, if accurate down 0.8 kg, admission weight recorded as 137.9 kg
Hemoglobin 10.4, white count 9.3, platelets 234, BUN and creatinine 23 and 0.8, potassium 3.7, bicarbonate 37
Telemetry: Back in A-fib with rapid ventricular response
Impression:
Acute decompensated heart failure with preserved ejection fraction
Aortic stenosis last graded as moderate January 2024
Obstructive sleep apnea
Interstitial lung disease
She has a history of connective tissue disease, possibly Sjogren's, SS-A positive, BGMA Granulomatosis/polyangitis�
Essential hypertension
Paroxysmal atrial fibrillation
8.4% burden on outpatient monitoring December 2023
Maintained on Eliquis anticoagulation for atrial fibrillation related thromboembolic risk reduction
Morbid obesity
Chronic lymphedema
Diabetes mellitus, type II
Ulcerative colitis
Hypothyroidism
Echocardiogram February 15, 2024 LVEF of 60-65% with no wall motion abnormality. Left atrium is mildly dilated. There is moderate aortic stenosis with peak and mean gradients of 38 and 24 mmHg.
Echo 07/04/2024: Hyperdynamic left ventricle, EF 65-70%. No LVH, normal RV, normal left atrium, normal right atrium, MAC, trace MR, peak and mean aortic valve gradients are 40 and 21 mmHg, aortic valve area 1.0 cm to, trace AI, pulmonary artery
systolic pressure 36 mmHg
Plan:
Overall, she is modestly improved, now on high flow rather than BiPAP, seems more alert.
She remains on furosemide 40 mg IV twice daily. Her bicarbonate is 37. Potassium is 3.7.
However, she is back in atrial fibrillation. Ventricular response is somewhat elevated.
Will hold amiodarone for now given her lung disease, if needed, we could consider this.
There is a history of UTI, so will not start Jardiance or Farxiga
Echo is overall stable
Original Note:
Today's Communication / Plan
-
continue IV lasix
consider amio if ok with pulm
echo pending
Impression / Plan
-
Assessment:
Acute decompensated heart failure with preserved ejection fraction
Aortic stenosis last graded as moderate January 2024
Obstructive sleep apnea
Interstitial lung disease
She has a history of connective tissue disease, possibly Sjogren's, SS-A positive, BGMA Granulomatosis/polyangitis�
Essential hypertension
Paroxysmal atrial fibrillation
8.4% burden on outpatient monitoring December 2023
Maintained on Eliquis anticoagulation for atrial fibrillation related thromboembolic risk reduction
Morbid obesity
Chronic lymphedema
Diabetes mellitus, type II
Ulcerative colitis
Hypothyroidism
Echocardiogram February 15, 2024 finds LVEF of 60-65% with no wall motion abnormality. Left atrium is mildly dilated. There is moderate aortic stenosis with peak and mean gradients of 38 and 24 mmHg.
Recommendations:
-she has multifactorial respiratory failure related to morbid obesity, HFpEF, , and ILD with hypercapnia and hypercarbia. currently on high flow O2.
-volume status difficult to determine. will continue attempts at diuresis with IV lasix. CXR 2/3 with evidence of continued pulm edema. although weight not down significantly if accurate, I&O negative 2L overnight. we did discuss option of RHC,
however would attempt to avoid procedures in patient if possible
-echo pending
-she has history of known PAF with prior burden around 8.5%. she went back into afib with HRs ~100 at 2AM 07/04. continue cardizem 240mg TID as able (dose this AM was held due to hypotension).
-will discuss with pulmonary if with lung status, patient is a candidate for amiodarone. unlikely candidate for BB with lung disease.
-continue eliquis
-apparently was living independently with prior to admission. currently unable to ambulate with PT. needs eval for placement
-d/w patient and family at bedside
-d/w nursing, PT
Progress Note - Stone Sawyer
Subjective
Date of Service: July 04, 2024
reports she can tell she went back into afib this morning
Objective
Labs:
07/04/24 05:19
07/04/24 05:19
Labs
Hgb 10.4 g/dL (12.0-16.0) L 07/04/24 05:19
Hct 34.0 % (37.0-47.0) L 07/04/24 05:19
Plt Count 234 10^3/uL (130-400) 07/04/24 05:19
Sodium 139 mmol/L (135-145) 07/04/24 05:19
Potassium 3.7 mmol/L (3.5-5.1) 07/04/24 05:19
BUN 23 mg/dl (7-17) H 07/04/24 05:19
Creatinine 0.8 mg/dL (0.6-1.0) 07/04/24 05:19
Glucose 144 mg/dl (70-99) H 07/04/24 05:19
Troponins
07/01/24
18:53
Troponin I < 0.012
Vital Signs and I&O:
Vital Signs
Temp Pulse Resp BP Pulse Ox
98 F 112 20 105/73 91
07/04/24 07:15 07/04/24 08:09 07/04/24 08:09 07/04/24 07:41 07/04/24 08:13
Vital Signs
Temp Pulse Resp BP Pulse Ox
98 F 112 20 105/73 91
07/04/24 07:15 07/04/24 08:09 07/04/24 08:09 07/04/24 07:41 07/04/24 08:13
Intake & Output
07/02/24 07/03/24 07/04/24 07/05/24
07:59 07:59 07:59 07:59
Intake Total 120 / 120 660 / 660
Output Total 300 / 300 800 / 800 1700 / 1700 200 / 200
Balance -180 / -180 -140 / -140 -1700 / -1700 -200 / -200
Physical Exam
Physical Exam
GEN: No distress, awake, alert, oriented x3. on high flow O2. obese
HEENT: supple, anicteric, mmm, eomi
LUNGS: CTA anterolaterally, no wheezes
CV: Irreg, S1/S2, 1/6 syst LSB
ABD: soft, BS+, NT/ND
EXT: No cyanosis, clubbing. 1+ edema of B/L LE
NEURO: Gross non-focal
SKIN: Warm, pink, dry. No rash
[2024-07-04] MEDS: MIRALAX 17 GRAMS PO (15:51)
[2024-07-04] MEDS: CARDIZEM CD 240 MG PO ×2 (15:52→20:28)
[2024-07-04] MEDS: SINGULAIR 10 MG PO (17:13)
[2024-07-04] MEDS: COLACE 100 MG PO (17:13)
[2024-07-04] MEDS: LIPITOR 10 MG PO (17:13)
[2024-07-04] MEDS: NOVOLOG FLEXPEN-LOW RESISTANCE 1 UNITS SC (17:19)
[2024-07-04 17:27] LABS: Glucose - Point of Care 152 mg/dl (70-99)
[2024-07-04] MEDS: ATROVENT NEBULES INH (19:51)
[2024-07-04] MEDS: XOPENEX 1.25 MG INHALANT SOLUTION INH (19:52)
[2024-07-04] MEDS: XALATAN OPHTHALMIC SOLUTION 1 DROP BOTH EYES (20:28)
[2024-07-04] MEDS: SENOKOT 17.2 MG PO (20:28)
[2024-07-04 21:59] LABS: Glucose - Point of Care 266 mg/dl (70-99)
[2024-07-05] VITALS (14 sets, daily range): BP systolic 106–153; BP diastolic 63–93; PULSE 2; BMI 52.3
--- NOTE | 2024-07-05 00:27 | PTCARENOTE ---
assumed care of patient. daughter at bedside. pt on HFNC 50L 60% 92%. pt with complaints of constipation. noted patient has been refusing bowel regime. pt did agree to taking medications tonight. PW intact. a-fib on the monitor. care ongoing.
[2024-07-05] MEDS: SYNTHROID 100 MCG PO (05:29)
[2024-07-05 05:44] LABS: Venous Blood Gas B.E. 22.6 mmol/L (-4 to +4); Venous Blood Gas O2 Sat % 98.7 %; Venous Blood Gas pCO2 60 mmHg (35-48); Venous Blood Gas pH 7.52 (7.32-7.43); Venous Blood Gas pO2 124 mmHg (30-50)
[2024-07-05 06:03] LABS: Hematocrit 36.2 % (37.0-47.0); Hemoglobin 11.2 g/dL (12.0-16.0); Mean Corp Hgb Conc. 30.9 g/dL (33.0-37.0); Mean Corpuscular Hgb 26.5 pg (27.0-31.0); Mean Corpuscular Volume 85.6 fL (81.0-99.0); Mean Platelet Volume 11.2 fL (7.4-10.4); Platelet Count 252 10^3/uL (130-400); Red Blood Cell Count 4.23 10^6/uL (4.20-5.40); Red Cell Dist. Width 16.4 % (11.5-14.5); White Blood Cell Count 8.5 10^3/uL (4.8-10.8)
[2024-07-05 06:33] LABS: Blood Urea Nitrogen 24 mg/dl (7-17); Calcium 9.8 mg/dl (8.4-10.2); Chloride 87 mmol/L (98-107); Estimated Creatinine Clearance 76 ml/min; Glucose 138 mg/dl (70-99); Sodium 140 mmol/L (135-145); eGFR > 60.00
[2024-07-05 07:05] LABS: Carbon Dioxide 38 mmol/L (22-30)
[2024-07-05 08:08] LABS: Glucose - Point of Care 150 mg/dl (70-99)
[2024-07-05] MEDS: PULMICORT 0.5 MG INH ×2 (08:19→19:23)
[2024-07-05] MEDS: XOPENEX 1.25 MG INHALANT SOLUTION INH (08:19)
[2024-07-05] MEDS: ATROVENT NEBULES 0.5 MG INH ×2 (08:19→19:23)
--- NOTE | 2024-07-05 08:48 | W.PN.CARDCBS ---
Today's Communication / Plan
-
Cont IV lasix 40 mg BID. Cr and BUN stable
Is and Os remain negative.
Her wt is flat and at wt she was at in 2019.
Would continue to attempt to keep her as dry as possible.
Her echo remains stable with preserved EF and Mod .
HR improved, remains in aFib.
Holding off on Amiodarone given her ILD
Cont Cardizem 240 mg TID
Cont Eliquis
There is a history of UTI, so will not start Jardiance or Farxiga
Echo is overall stable
Cont pulm toilet and O2 management.
Impression / Plan
-
.
Impression:
Multifactorial dyspnea
Acute decompensated heart failure with preserved ejection fraction
Aortic stenosis last graded as moderate January 2024
Obstructive sleep apnea
Interstitial lung disease
She has a history of connective tissue disease, possibly Sjogren's, SS-A positive, BGMA Granulomatosis/polyangitis�
Essential hypertension
Paroxysmal atrial fibrillation
8.4% burden on outpatient monitoring December 2023
Maintained on Eliquis anticoagulation for atrial fibrillation related thromboembolic risk reduction
Morbid obesity
Chronic lymphedema
Diabetes mellitus, type II
Ulcerative colitis
Hypothyroidism
Echocardiogram February 15, 2024 finds LVEF of 60-65% with no wall motion abnormality. Left atrium is mildly dilated. There is moderate aortic stenosis with peak and mean gradients of 38 and 24 mmHg.
Echo Jul 04 2024: Normal left ventricular wall thickness. Hyperdynamic left ventricular systolic function. 65-70% by visual assessment. Normal right ventricular size and function. Trace mitral regurgitation.
Moderate aortic stenosis. Peak/mean gradients across the aortic valve are 40/21 mmHg. Mild tricuspid regurgitation. Trivial pericardial effusion. No significant change compared to prior echocardiogram
Plan:
Cont IV lasix 40 mg BID. Cr and BUN stable
Is and Os remain negative.
Her wt is flat and at wt she was at in 2019.
Would continue to attempt to keep her as dry as possible.
Her echo remains stable with preserved EF and Mod .
HR improved, remains in aFib.
Holding off on Amiodarone given her ILD
Cont Cardizem 240 mg TID
Cont Eliquis
There is a history of UTI, so will not start Jardiance or Farxiga
Echo is overall stable
Cont pulm toilet and O2 management.
She was living independently with prior to admission but will likely need placement currently
Cont PT.
Discussed with nursing
Progress Note - Desk Editor
Subjective
Date of Service: July 05, 2024
Pt seen and examined. Complaints of constipation. No cp.
Objective
Labs:
07/05/24 05:36
07/05/24 05:36
Labs
Hgb 11.2 g/dL (12.0-16.0) L 07/05/24 05:36
Hct 36.2 % (37.0-47.0) L 07/05/24 05:36
Plt Count 252 10^3/uL (130-400) 07/05/24 05:36
Sodium 140 mmol/L (135-145) 07/05/24 05:36
Potassium 4.0 mmol/L (3.5-5.1) 07/05/24 05:36
BUN 24 mg/dl (7-17) H 07/05/24 05:36
Creatinine 0.8 mg/dL (0.6-1.0) 07/05/24 05:36
Glucose 138 mg/dl (70-99) H 07/05/24 05:36
Vital Signs and I&O:
Vital Signs
Temp Pulse Resp BP Pulse Ox
98.0 F 118 18 140/70 94
07/05/24 02:54 07/05/24 08:19 07/05/24 08:19 07/05/24 06:00 07/05/24 08:19
Vital Signs
Temp Pulse Resp BP Pulse Ox
98.0 F 118 18 140/70 94
07/05/24 02:54 07/05/24 08:19 07/05/24 08:19 07/05/24 06:00 07/05/24 08:19
Intake & Output
07/03/24 07/04/24 07/05/24 07/06/24
06:59 06:59 06:59 06:59
Intake Total 780 / 780 80 / 80
Output Total 1100 / 1100 1700 / 1700 550 / 550
Balance -320 / -320 -1700 / -1700 -470 / -470
Physical Exam
Physical Exam
General: No acute distress, AAOX3
Neck: Negative JVD
Heart: Irregularly irregular, Negative S3 positive S1/S2, Negative S4, No murmur
Lungs: CTA b/l, negative wheezes/rales/rhonchi
Abd: Positive BS, NT/ND, neg rebound/rigidity/guarding
Ext: Negative cyanosis/clubbing/edema
Neuro: nonfocal
[2024-07-05] MEDS: NOVOLOG FLEXPEN-LOW RESISTANCE 1 UNITS SC ×2 (08:50→14:07)
[2024-07-05] MEDS: ELIQUIS 5 MG PO ×2 (08:51→20:27)
[2024-07-05] MEDS: ZYRTEC 10 MG PO (08:51)
[2024-07-05] MEDS: KCL PO ×2 (08:52→09:11)
[2024-07-05] MEDS: VITAMIN D3 (cholecalciferol) 25 MCG PO (08:52)
[2024-07-05] MEDS: CARDIZEM CD 240 MG PO ×3 (08:52→21:59)
[2024-07-05] MEDS: MIRALAX 17 GRAMS PO ×2 (08:52→20:28)
[2024-07-05] MEDS: COZAAR 100 MG PO (08:52)
[2024-07-05] MEDS: LASIX 40 MG IV ×2 (08:53→18:08)
[2024-07-05] MEDS: MAGNESIUM OXIDE 500 MG PO (08:53)
[2024-07-05] MEDS: VIBRAMYCIN 100 MG PO ×2 (08:53→20:27)
[2024-07-05] MEDS: CYANOCOBALAMIN 1000 MCG IM (08:55)
[2024-07-05] MEDS: FEOSOL PO ×3 (08:59→20:30)
[2024-07-05] MEDS: GLUCOPHAGE PO (09:00)
[2024-07-05] MEDS: JANUVIA PO (09:00)
--- NOTE | 2024-07-05 10:12 | PTCARENOTE ---
Rec'd pt this AM. Pt with multiple complaints. Reports being very constipated, being uncomfortable in the bed, requesting to eat and drink while HOB less than 30 degree. Pt is very anxious, requires a lot of emotional support. RN provided education
on the risk of eating while not sitting upright. Pt and PCT pulled pt up in bed an sat her upright for breakfast and to take PO meds. Also wrote note on whiteboard reminding pt to ONLY eat and drink while sitting up in bed. Notified Dr. Kumari of
constipation complaint and pt requesting suppository. Vital signs stable.
--- NOTE | 2024-07-05 10:41 | W.PN.PUL3 ---
Today's Communication / Plan
-
Continue negative fluid status per cardiology
Chest x-ray in a.m.
Remains on doxycycline, complete 7-day course
Discontinue Xopenex
Continue budesonide, ipratropium
Follow-up in sleep clinic
Continue CPAP
Assessment
-
Assessment: 78-year-old female with a past medical history of CROW on CPAP, interstitial lung disease, asthma, hypertension, hypothyroidism, DM type II, history of ulcerative colitis, history of right lower extremity cellulitis, A-fib on Eliquis and
chronic hypoxic respiratory failure on 2 L/min with activity who presented with worsening shortness of breath and dry cough. The patient is on 2 L/min with activity and also uses 2 L/min through her CPAP, however over the last several days her
oxygen levels were worsening and she stopped wearing her CPAP and instead was wearing up to 6 L/min nasal cannula continuously. Also noted to have worsening lower extremity edema and was sleeping on a chair due to sats significant shortness of
breath. She then started to not able to move from the bed to the chair or walk due to her dyspnea and had chest heaviness. In the ER she was afebrile to 98.4 �F, pulse rate 80, breathing at 24 breaths/min, BP 163/94 and saturating 86% on 6 L/min.
Saturations did improve to 93% on the same amount of O2 at 6 L/min. Labs showed Hb 10.5, proBNP 459, and COVID-19 antigen negative. CXR showed increased bilateral interstitial markings suspicious for acute interstitial/alveolar cardiogenic
pulmonary edema. In the ER she was given 40 mg IV Lasix. She was admitted to the IMU where she continues to be monitored; blood gas obtained on the evening of 07/02/2024 and again on the morning of 07/03/2024 shows acute on chronic hypercapnic
respiratory failure with pH 7.36, pCO2 82. Pulmonary service now consulted for additional management/recommendations.
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
Eliquis, CROW on CPAP, interstitial lung disease, chronic hypoxic respiratory failure on 2 L/min with activity
Impression:
#Acute respiratory failure with hypoxia
#Acute on chronic respiratory failure with hypercapnia
#Acute decompensated heart failure with increased bilateral interstitial markings and groundglass opacities seen on CXR from 07/01/2024
#Metabolic alkalosis due to chronic hypercapnic respiratory failure/OHS
#Acute anemia
#Chronic diastolic heart failure with TTE from 02/15/2024 showing stage II diastolic dysfunction with moderate with peak/mean gradients of 38/24 mmHg and borderline moderate PH with PASP 39
#Severe morbid obesity with BMI: 52.5
#History of asthma on Breo at home with Duonebs + prn budesonide
#CROW/OHS on nocturnal CPAP as an outpatient bled with 2L/min
#DM type II
#History of ulcerative colitis
#History of ILD with CT chest from 05/06/2021 showing bilateral mosaic attenuation with scattered subpleural nodules and bronchiolitis
#Paroxysmal A-fib with RVR on Eliquis
#Chronic lymphedema
Plan/recommendations:
At this time, patient appears to be comfortable on CPAP, negative fluid status noted
Weight has decreased 8 kg since admission
Lower extremity swelling has improved significantly
Moving forward
Continue with Lasix therapy, diuresis
Echo rechecked on 07/04/24 showing hyperdynamic LV systolic function with LVEF 65-70%, with normal RV size and function, moderate with peak/mean gradients of 40/21 mmHg, respectively, with trace MR, and mild TR with a trivial pericardial effusion
--> no significant change compared to prior echo in January 2024
Continue with nocturnal BiPAP
pH noted
Follow clinically
Repeat chest x-ray 07/06
Not convinced pneumonia but will continue doxycycline for now
No white count, no fevers
Influenza negative
She takes budesonide BID prn and DuoNebs BID at home
Continue budesonide, ipratropium for now. Will discontinue Xopenex
DVT ppx: Eliquis
Pulmonary service will continue to follow along. Patient advised to continue following up with us in the office as she follows with Dr. Castaneda (last visit on 03/09/2024); next visit scheduled for 07/20/2024 at 1:30 PM with CECIL Mancia, and
then on 07/25/[address] Castaneda
Data:
CXR 07/03/2024:
Limited study with extremely low lung volumes again noted.
Cardiomegaly again seen.
Bilateral prominent interstitial markings and some predominantly bibasilar groundglass opacity again seen, possibly representing acute interstitial and alveolar pulmonary edema. No pneumothorax.
Total time spent today was 36 minutes for this encounter. Time includes reviewing laboratory test/imaging results, reviewing pertinent medical records, obtaining and reviewing medical history, performing an appropriate exam, ordering medications,
tests and procedures. Time also includes documentation of this encounter, coordinating patient care and communicating with other healthcare professionals. Total time does not include separately billed tests performed on this date of service.
Subjective Data
-
Date of Service:
Date of Service: July 05, 2024
Chief Complaint: Pulmonary Follow Up
Subjective:
Patient appears to be comfortable on BiPAP at this time. She states she does not feel any better but she appears comfortable. 92% saturation. Negative fluid status noted. Still remains tachycardic in the 110s
Objective Data
Data Reviewed
Vital Signs / I&O / Oxygen:
Vital Signs
Temp Pulse Resp BP Pulse Ox
98.4 F 118 18 124/84 94
07/05/24 07:10 07/05/24 08:53 07/05/24 08:19 07/05/24 08:53 07/05/24 08:19
Intake and Output
07/04/24 07/05/24 07/06/24
06:59 06:59 06:59
Intake Total 80 / 80
Output Total 1700 / 1700 550 / 550
Balance -1700 / -1700 -470 / -470
SaO2 94
Nasal Cannula flow liters per 50
minute
Physical Exam
General: Respiratory Distress (negative, large neck) and Comfortable
HEENT: Normocephalic, Anicteric and Other (thick neck)
Cardiovascular: S1-S2, Irregular Rhythm (Irregularly irregular), Peripheral Edema (+1 lower extremity pitting edema bilaterally, chronic venous stasis changes) and Other (Tachycardic)
Respiratory: Wheeze (negative), Crackles (few), Rhonchi (negative), Non-Labored Respirations, Stridor (negative) and Other (Diminished breath sounds due to body habitus)
GI: Soft, Distended (Significant abdominal obesity), Non Tender and Normal Bowel Sounds
Neurology: Awake and Alert
Skin: Cyanosis (negative) and Jaundice (negative)
Labs/Micro/Reports
Lab Data
07/05/24 05:36
07/05/24 05:36
--- NOTE | 2024-07-05 10:57 | W.PN.HOSP.TC ---
Today's Communication/Plan
-
Enema today
Encouraged to continue with bowel regimen
Out of bed
Decrease FiO2 as tolerated
Continue with IV diuresis
Assessment / Plan
Assessment / Plan
78-year-old female admitted with progressive shortness of breath. Has been short of breath for a while she does not weigh herself for the past 1 year. She also had some productive cough no fever. She could not even transfer from her wheelchair to
the walker. She has been using oxygen which she was prescribed for as needed use has been using it [id number] Does not like BiPAP, On high flow now
# Acute on chronic hypoxic and hypercapnic respiratory failure secondary to CHF , possible pneumonia, noncompliance with CPAP, suspected obesity hypoventilation
Remains on high flow nasal cannula. FiO2 50%.
# Acute on chronic HFpEF with moderate aortic stenosis
Volume overloaded
Dietary indiscretion and also she does not weigh herself at home
Continue Lasix 40 mg IV twice daily
Salt and fluid restriction
Intake output charting, daily weights, CHF education
Patient does have respiratory acidosis and metabolic alkalosis, metabolic alkalosis is making hypoxia worse.
Repeat echo normal left ventricular function. EF 65 to 70%. Normal right ventricular size function. Moderate aortic stenosis. Travel pericardial effusion.
Troponin negative
# Acute hypercapnic respiratory failure-BiPAP ordered. She was not using her CPAP at home for several days prior to coming in because she was using her oxygen only at night.
ABG noted.
Encourage BiPAP as much as she can.
With a baseline pCO2 of 82 while I agree , that she is not symptomatic now , she does not have Much room for worsening pCO2 before it makes her symptomatic.
Pulmonary consultation appreciated
# Pneumonia cannot be ruled out-multiple medication allergies noted. Started doxycycline and watch. Tolerating. Repeat chest [id number] edema
# Aortic stenosis moderate per last echo January 2024
# Paroxysmal atrial fibrillation-continue Eliquis, Cardizem
# Hypertension-continue losartan 100 mg daily, diltiazem 250 mg 3 times a day
# Asthma-budesonide, Singulair, as needed neb treatment
# Chronic respiratory failure on as needed oxygen as outpatient
# Boitpjhx-Bjdf-Qdks sliding scale coverage. Hemoglobin A1c 7.4-hold Januvia 100 mg daily, metformin 500 twice daily
# Anemia- B 12 def replace. Iron deficiency-replace
# Hypothyroidism-continue Synthroid 100 mcg daily
# Hypercalcemia-check intact PTH, also vitamin D borderline
# Psoriasis
# Sleep apnea-CPAP
# Hyperlipidemia-continue atorvastatin
# History of nephrolithiasis
# Diverticulosis
# Morbid obesity with a BMI of 52
# DJD/ambulatory dysfunction/osteoarthritis-PT eval
# Glaucoma-continue travoprost eyedrops
#Constipation-enema today.
# Multiple antibiotic allergies-Dr. Park made patient as well as daughter aware that she should follow-up with an kiln repairer and see if she has true allergies to these antibiotics. Both of them are aware that when and if she needs antibiotics
for serious infections this can be in a way of treating it and she will only get suboptimal antibiotic choices at that time if she is listed as allergic to all these
# DVT prophylaxis-Eliquis
# Full code
Discussed with patient spouse at bedside in detail.
Anticipated Discharge: > 48 hours
Subjective/Interval History
-
Date of Service: July 05, 2024
States of constipation.
Remains on high flow nasal cannula
Objective Data
-
Labs:
Laboratory Results
07/05/24
05:36
WBC 8.5
Hgb 11.2 L
Hct 36.2 L
Plt Count 252
Sodium 140
Potassium 4.0
Chloride 87 L
Carbon Dioxide 38 H
BUN 24 H
Creatinine 0.8
Glucose 138 H
Calcium 9.8
Vital Signs:
Vital Signs
Temp Pulse Resp BP Pulse Ox
98.4 F 116 25 106/73 92
07/05/24 07:10 07/05/24 10:00 07/05/24 10:00 07/05/24 10:00 07/05/24 10:00
I&O
07/04/24 07/05/24 07/06/24
06:59 06:59 06:59
Intake Total 80 / 80
Output Total 1700 / 1700 550 / 550
Balance -1700 / -1700 -470 / -470
Physical Exam
-
General: Morbidly Obese
HEENT: Normocephalic, Atraumatic, Moist Mucous Membranes and Oxygen (HFNC)
Respiratory: Rales
Cardiac: Regular Rhythm and S1/S2; Negative Murmur, Rub or Gallop
GI: Soft, Nontender, Nondistended and Normal Bowel Sounds; Negative Organomegaly
Rectal: Deferred by Provider
Musculoskeletal: No Clubbing, No Cyanosis and Other (Bilateral chronic venous stasis changes )
Skin: Negative Rash
Neuro: Awake, AO x 3, No Motor Deficits and Nonfocal/Grossly Intact
Psych: Calm
Data Reviewed
-
Total Time Spent with Patient (in minutes): 55
[2024-07-05 13:49] LABS: Glucose - Point of Care 158 mg/dl (70-99)
[2024-07-05 14:42] LABS: Intact PTH 88.8 pg/ml (13.6-85.8)
--- NOTE | 2024-07-05 16:28 | PTCARENOTE ---
Pt had good response to enema. Several hard, formed BMs. reports relief.
[2024-07-05] MEDS: SINGULAIR 10 MG PO (18:09)
[2024-07-05] MEDS: LIPITOR 10 MG PO (18:09)
[2024-07-05] MEDS: NOVOLOG FLEXPEN-LOW RESISTANCE 2 UNITS SC (18:18)
[2024-07-05 18:29] LABS: Glucose - Point of Care 202 mg/dl (70-99)
--- NOTE | 2024-07-05 19:35 | PTCARENOTE ---
Pt weaned to 5L NC. O2 sat 92%
[2024-07-05] MEDS: SENOKOT 17.2 MG PO (20:27)
[2024-07-05] MEDS: COLACE 100 MG PO (20:27)
[2024-07-05] MEDS: XALATAN OPHTHALMIC SOLUTION 1 DROP BOTH EYES (21:59)
[2024-07-05] MEDS: TYLENOL 1000 MG PO (22:13)
[2024-07-06] VITALS (19 sets, daily range): BP systolic 105–145; BP diastolic 72–119; PULSE 2–100; O2SAT 93; BMI 50.5
[2024-07-06 00:14] LABS: Glucose - Point of Care 152 mg/dl (70-99)
--- NOTE | 2024-07-06 03:41 | PTCARENOTE ---
Patient AAOx3. A-fib on tele. Pt placed on the BiPAP HS. Sp02 94%. Pt refusing tubi machine feeder raw stock b/l, complaints of pain to both lower legs. B/l lower legs red and dry. Pt refusing turning at beginning of shift due to being 'too uncomfortable' after
education and encouragement patient agreeable to turning. Pt abdomen is round and obese. Pt had one episode of incontinence of urine, purewick replaced, perineal care done. Oral care done. Pt ringing call smith appropriately, call smith is within
reach.
[2024-07-06 04:37] LABS: Hematocrit 37.3 % (37.0-47.0); Hemoglobin 11.3 g/dL (12.0-16.0); Mean Corp Hgb Conc. 30.3 g/dL (33.0-37.0); Mean Corpuscular Hgb 26.2 pg (27.0-31.0); Mean Corpuscular Volume 86.5 fL (81.0-99.0); Platelet Count 265 10^3/uL (130-400); Red Blood Cell Count 4.31 10^6/uL (4.20-5.40); Red Cell Dist. Width 16.3 % (11.5-14.5); White Blood Cell Count 8.1 10^3/uL (4.8-10.8)
[2024-07-06 05:01] LABS: Blood Urea Nitrogen 28 mg/dl (7-17); Calcium 10.2 mg/dl (8.4-10.2); Chloride 86 mmol/L (98-107); Estimated Creatinine Clearance 75 ml/min; Glucose 140 mg/dl (70-99); Potassium 3.7 mmol/L (3.5-5.1); Sodium 139 mmol/L (135-145); eGFR > 60.00
[2024-07-06 05:22] LABS: Carbon Dioxide 43 mmol/L (22-30)
[2024-07-06] MEDS: SYNTHROID 100 MCG PO (05:36)
[2024-07-06] MEDS: ATROVENT NEBULES 0.5 MG INH ×2 (07:46→20:50)
[2024-07-06] MEDS: PULMICORT 0.5 MG INH ×2 (07:46→20:50)
[2024-07-06] MEDS: KCL ELIXIR 40 MEQ PO (08:04)
[2024-07-06] MEDS: MIRALAX 17 GRAMS PO (08:04)
[2024-07-06] MEDS: MAGNESIUM OXIDE 500 MG PO (08:04)
[2024-07-06] MEDS: LASIX 40 MG IV ×2 (08:04→15:53)
[2024-07-06] MEDS: CYANOCOBALAMIN 1000 MCG IM (08:07)
[2024-07-06] MEDS: VIBRAMYCIN 100 MG PO ×2 (08:07→20:15)
[2024-07-06] MEDS: SENOKOT 17.2 MG PO ×2 (08:08→20:15)
[2024-07-06] MEDS: COZAAR 100 MG PO (08:08)
[2024-07-06] MEDS: ZYRTEC 10 MG PO (08:08)
[2024-07-06] MEDS: VITAMIN D3 (cholecalciferol) 25 MCG PO (08:09)
[2024-07-06] MEDS: NOVOLOG FLEXPEN-LOW RESISTANCE SC ×2 (08:09→12:20)
[2024-07-06] MEDS: CARDIZEM CD 240 MG PO ×3 (08:09→20:15)
[2024-07-06] MEDS: FEOSOL PO ×2 (08:09→08:15)
[2024-07-06] MEDS: COLACE 100 MG PO ×2 (08:09→20:14)
[2024-07-06] MEDS: ELIQUIS 5 MG PO ×2 (08:09→20:15)
[2024-07-06 08:18] LABS: Glucose - Point of Care 134 mg/dl (70-99)
--- NOTE | 2024-07-06 09:14 | W.PN.PUL3 ---
Today's Communication / Plan
-
Continue with negative fluid status as able
Continue with BiPAP
ABG in a.m.
Continue doxycycline
PT/OT
Assessment
-
Assessment: 78-year-old female with a past medical history of CROW on CPAP, interstitial lung disease, asthma, hypertension, hypothyroidism, DM type II, history of ulcerative colitis, history of right lower extremity cellulitis, A-fib on Eliquis and
chronic hypoxic respiratory failure on 2 L/min with activity who presented with worsening shortness of breath and dry cough. The patient is on 2 L/min with activity and also uses 2 L/min through her CPAP, however over the last several days her
oxygen levels were worsening and she stopped wearing her CPAP and instead was wearing up to 6 L/min nasal cannula continuously. Also noted to have worsening lower extremity edema and was sleeping on a chair due to sats significant shortness of
breath. She then started to not able to move from the bed to the chair or walk due to her dyspnea and had chest heaviness. In the ER she was afebrile to 98.4 �F, pulse rate 80, breathing at 24 breaths/min, BP 163/94 and saturating 86% on 6 L/min.
Saturations did improve to 93% on the same amount of O2 at 6 L/min. Labs showed Hb 10.5, proBNP 459, and COVID-19 antigen negative. CXR showed increased bilateral interstitial markings suspicious for acute interstitial/alveolar cardiogenic
pulmonary edema. In the ER she was given 40 mg IV Lasix. She was admitted to the IMU where she continues to be monitored; blood gas obtained on the evening of 07/02/2024 and again on the morning of 07/03/2024 shows acute on chronic hypercapnic
respiratory failure with pH 7.36, pCO2 82. Pulmonary service now consulted for additional management/recommendations.
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
Eliquis, CROW on CPAP, interstitial lung disease, chronic hypoxic respiratory failure on 2 L/min with activity
Impression:
#Acute respiratory failure with hypoxia
#Acute on chronic respiratory failure with hypercapnia
#Acute decompensated heart failure with increased bilateral interstitial markings and groundglass opacities seen on CXR from 07/01/2024
#Metabolic alkalosis due to chronic hypercapnic respiratory failure/OHS
#Acute anemia
#Chronic diastolic heart failure with TTE from 02/15/2024 showing stage II diastolic dysfunction with moderate with peak/mean gradients of 38/24 mmHg and borderline moderate PH with PASP 39
#Severe morbid obesity with BMI: 52.5
#History of asthma on Breo at home with Duonebs + prn budesonide
#CROW/OHS on nocturnal CPAP as an outpatient bled with 2L/min
#DM type II
#History of ulcerative colitis
#History of ILD with CT chest from 05/06/2021 showing bilateral mosaic attenuation with scattered subpleural nodules and bronchiolitis
#Paroxysmal A-fib with RVR on Eliquis
#Chronic lymphedema
Plan/recommendations:
At this time, patient appears to be comfortable on nasal cannula, negative fluid status noted
CXR 07/06 with persistent bilateral interstitial changes, suspected pulmonary edema
Weight has decreased 8 kg since admission
Lower extremity swelling has improved significantly
Moving forward
Continue with Lasix therapy, diuresis
Echo rechecked on 07/04/24 showing hyperdynamic LV systolic function with LVEF 65-70%, with normal RV size and function, moderate with peak/mean gradients of 40/21 mmHg, respectively, with trace MR, and mild TR with a trivial pericardial effusion
--> no significant change compared to prior echo in January 2024
Continue with nocturnal BiPAP
Check ABG in a.m.
Follow clinically
Not convinced pneumonia but will continue doxycycline for now
No white count, no fevers
Influenza negative
She takes budesonide BID prn and DuoNebs BID at home
Continue budesonide, ipratropium for now. Will discontinue Xopenex
Continue to follow volume status
DVT ppx: Eliquis
Pulmonary service will continue to follow along. Patient advised to continue following up with us in the office as she follows with Dr. Castaneda (last visit on 03/09/2024); next visit scheduled for 07/20/2024 at 1:30 PM with CECIL Mancia, and
then on 07/25/[address] Castaneda
Data:
CXR 07/03/2024:
Limited study with extremely low lung volumes again noted.
Cardiomegaly again seen.
Bilateral prominent interstitial markings and some predominantly bibasilar groundglass opacity again seen, possibly representing acute interstitial and alveolar pulmonary edema. No pneumothorax.
Total time spent today was 36 minutes for this encounter. Time includes reviewing laboratory test/imaging results, reviewing pertinent medical records, obtaining and reviewing medical history, performing an appropriate exam, ordering medications,
tests and procedures. Time also includes documentation of this encounter, coordinating patient care and communicating with other healthcare professionals. Total time does not include separately billed tests performed on this date of service.
Subjective Data
-
Date of Service:
Date of Service: July 06, 2024
Chief Complaint: Pulmonary Follow Up
Subjective:
Patient eating lunch during my assessment. Appears comfortable. Complaining of dry cough. Wants to drink more liquids. Denies chest pain, nausea. Tolerating BiPAP
Objective Data
Data Reviewed
Vital Signs / I&O / Oxygen:
Vital Signs
Temp Pulse Resp BP Pulse Ox
97.7 F 95 29 130/114 95
07/06/24 08:00 07/06/24 08:08 07/06/24 08:00 07/06/24 08:08 07/06/24 08:00
Intake and Output
07/05/24 07/06/24 07/07/24
06:59 06:59 06:59
Intake Total 80 / 80 240 / 240
Output Total 550 / 550 250 / 250
Balance -470 / -470 -10 / -10
SaO2 95
Nasal Cannula flow liters per 6
minute
Physical Exam
General: Comfortable
HEENT: Normocephalic, Anicteric and Other (thick neck)
Cardiovascular: S1-S2, Irregular Rhythm (Irregularly irregular), Peripheral Edema (+1 lower extremity pitting edema bilaterally, chronic venous stasis changes) and Other (Tachycardic)
Respiratory: Wheeze (negative), Crackles (few), Rhonchi (negative), Non-Labored Respirations, Stridor (negative) and Other (Diminished breath sounds due to body habitus)
GI: Soft, Distended (Significant abdominal obesity), Non Tender and Normal Bowel Sounds
Neurology: Awake and Alert
Skin: Cyanosis (negative) and Jaundice (negative)
Labs/Micro/Reports
Lab Data
07/06/24 04:14
07/06/24 04:14
--- NOTE | 2024-07-06 10:30 | PTCARENOTE ---
Pt has many complaints and dislikes. Dislikes taste of liq KCL butts not like Miralax or iron. Refuses compression stockings . Staes she can not hold her water cup . Does not want to be turned. Pure staceyin place on 6 liters NC
--- NOTE | 2024-07-06 10:34 | W.PN.CARDCBS ---
Today's Communication / Plan
-
Continue IV lasix
Monitor standing weights
Impression / Plan
-
A And P Mechanic: Lara Bullock
Impression:
Multifactorial dyspnea
Acute decompensated heart failure with preserved ejection fraction
Aortic stenosis last graded as moderate January 2024
Obstructive sleep apnea
Interstitial lung disease
She has a history of connective tissue disease, possibly Sjogren's, SS-A positive, BGMA Granulomatosis/polyangitis�
Essential hypertension
Paroxysmal atrial fibrillation
8.4% burden on outpatient monitoring December 2023
Maintained on Eliquis anticoagulation for atrial fibrillation related thromboembolic risk reduction
Morbid obesity
Chronic lymphedema
Diabetes mellitus, type II
Ulcerative colitis
Hypothyroidism
Echocardiogram February 15, 2024 finds LVEF of 60-65% with no wall motion abnormality. Left atrium is mildly dilated. There is moderate aortic stenosis with peak and mean gradients of 38 and 24 mmHg.
Echo Jul 04 2024: Normal left ventricular wall thickness. Hyperdynamic left ventricular systolic function. 65-70% by visual assessment. Normal right ventricular size and function. Trace mitral regurgitation.
Moderate aortic stenosis. Peak/mean gradients across the aortic valve are 40/21 mmHg. Mild tricuspid regurgitation. Trivial pericardial effusion. No significant change compared to prior echocardiogram
Plan:
#Acute HFpEF
Echo remains stable with preserved EF and mod
Cont IV lasix 40 mg BID
Follow Cr and BUN which are stable
Continue daily weights, ideally would be standing scale
Consider Aldactone
There is a history of UTI, so will not start Jardiance or Farxiga
Wean O2 as able
#AFib
HR improved, remains in AFib
Cont Cardizem 240 mg TID
Avoid amiodarone given her ILD
Cont Eliquis
Progress Note - A And P Mechanic
Subjective
Date of Service: July 06, 2024
NAOE. Remains in IMU on supplemental O2. Tells me she feels her LEs are still edematous. Also with abd distension.
Objective
Labs:
07/06/24 04:14
07/06/24 04:14
Labs
Hgb 11.3 g/dL (12.0-16.0) L 07/06/24 04:14
Hct 37.3 % (37.0-47.0) 07/06/24 04:14
Plt Count 265 10^3/uL (130-400) 07/06/24 04:14
Sodium 139 mmol/L (135-145) 07/06/24 04:14
Potassium 3.7 mmol/L (3.5-5.1) 07/06/24 04:14
BUN 28 mg/dl (7-17) H 07/06/24 04:14
Creatinine 0.8 mg/dL (0.6-1.0) 07/06/24 04:14
Glucose 140 mg/dl (70-99) H 07/06/24 04:14
Vital Signs and I&O:
Vital Signs
Temp Pulse Resp BP Pulse Ox
97.7 F 97 20 123/82 93
07/06/24 08:00 07/06/24 10:15 07/06/24 10:15 07/06/24 10:15 07/06/24 10:15
Vital Signs
Temp Pulse Resp BP Pulse Ox
97.7 F 97 20 123/82 93
07/06/24 08:00 07/06/24 10:15 07/06/24 10:15 07/06/24 10:15 07/06/24 10:15
Intake & Output
07/04/24 07/05/24 07/06/24 07/07/24
06:59 06:59 06:59 06:59
Intake Total 80 / 80 240 / 240
Output Total 1700 / 1700 550 / 550 250 / 250
Balance -1700 / -1700 -470 / -470 -10 / -10
Physical Exam
Physical Exam
Gen: NAD, AAOx3
HEENT: NC/AT, sclera anicteric
Neck: Difficult to assess JVD
CV: Irregularly irregular, distant heart sounds
Lungs: No increased work of breathing on 6 L supplemental O2 via nasal cannula
Abd: S/ND
Ext: 1+ LE edema with overlying venous stasis changes
Skin: Warm, dry
Neuro: Non-focal
--- NOTE | 2024-07-06 11:45 | W.PN.HOSP.TC ---
Today's Communication/Plan
-
Continue to wean oxygen as tolerated
Continue with IV diuresis
losing weight
Continue with KCl
Finish antibiotic course
Out of bed
Assessment / Plan
Assessment / Plan
78-year-old female admitted with progressive shortness of breath. Has been short of breath for a while she does not weigh herself for the past 1 year. She also had some productive cough no fever. She could not even transfer from her wheelchair to
the walker. She has been using oxygen which she was prescribed for as needed use has been using it [id number] Does not like BiPAP, On high flow now
# Acute on chronic hypoxic and hypercapnic respiratory failure secondary to CHF , possible pneumonia, noncompliance with CPAP, suspected obesity hypoventilation
Improvement in oxygenation now down titrated to mid flow. 5 to 6 L at rest
# Acute on chronic HFpEF with moderate aortic stenosis
Volume overloaded
Dietary indiscretion and also she does not weigh herself at home
Continue Lasix 40 mg IV twice daily.
Losing weight.
Salt and fluid restriction
Intake output charting, daily weights, CHF education
Patient does have respiratory acidosis and metabolic alkalosis, metabolic alkalosis is making hypoxia worse.
Repeat echo normal left ventricular function. EF 65 to 70%. Normal right ventricular size function. Moderate aortic stenosis. Travel pericardial effusion.
Troponin negative
# Acute hypercapnic respiratory failure-BiPAP ordered. She was not using her CPAP at home for several days prior to coming in because she was using her oxygen only at night.
ABG noted.
Encourage BiPAP as much as she can.
With a baseline pCO2 of 82 agree , that she is not symptomatic now , she does not have Much room for worsening pCO2 before it makes her symptomatic.
Pulmonary consultation appreciated
# Pneumonia cannot be ruled out-multiple medication allergies noted. Started doxycycline and watch. Complete finite course. Tolerating. Repeat chest t-dim-jegnxqimc edema
# Aortic stenosis moderate per last echo January 2024
# Paroxysmal atrial fibrillation-continue Eliquis, Cardizem
# Hypertension-continue losartan 100 mg daily, diltiazem 240 mg 3 times a day
# Asthma-budesonide, Singulair, as needed neb treatment
# Chronic respiratory failure on as needed oxygen as outpatient
# Vcdzyfbl-Atrl-Fjpg sliding scale coverage. Hemoglobin A1c 7.4-hold Januvia 100 mg daily, metformin 500 twice daily
# Anemia- B 12 def replace. Iron deficiency-replace
# Hypothyroidism-continue Synthroid 100 mcg daily
# Hypercalcemia w/hypo VIT D-Was started on supplementation. Mildly elevated intact PTH. Calcium stabilized. Outpatient follow-up recommended.
# Psoriasis
# Sleep apnea-CPAP
# Hyperlipidemia-continue atorvastatin
# History of nephrolithiasis
# Diverticulosis
# Morbid obesity with a BMI of 52
# DJD/ambulatory dysfunction/osteoarthritis-PT eval
# Glaucoma-continue travoprost eyedrops
#Constipation-good results with enema. Continue with senna and Colace. MiraLAX as needed.
# Multiple antibiotic allergies-Dr. Park made patient as well as daughter aware that she should follow-up with an [employer] and see if she has true allergies to these antibiotics. Both of them are aware that when and if she needs antibiotics
for serious infections this can be in a way of treating it and she will only get suboptimal antibiotic choices at that time if she is listed as allergic to all these
# DVT prophylaxis-Eliquis
# Full code
PT/OT-SNF on dc.
Anticipated Discharge: > 48 hours
Subjective/Interval History
-
Date of Service: July 06, 2024
Patient off high flow nasal cannula
Had multiple bowel movements
Tolerating diet
Currently on 6 L intermittently going up to 10 L at times
Objective Data
-
Labs:
Laboratory Results
07/06/24
04:14
WBC 8.1
Hgb 11.3 L
Hct 37.3
Plt Count 265
Sodium 139
Potassium 3.7
Chloride 86 L
Carbon Dioxide 43 H
BUN 28 H
Creatinine 0.8
Glucose 140 H
Calcium 10.2
Vital Signs:
Vital Signs
Temp Pulse Resp BP Pulse Ox
98.4 F 97 20 123/82 93
07/06/24 11:22 07/06/24 10:15 07/06/24 10:15 07/06/24 10:15 07/06/24 10:15
I&O
07/05/24 07/06/24 07/07/24
06:59 06:59 06:59
Intake Total 80 / 80 240 / 240
Output Total 550 / 550 250 / 250
Balance -470 / -470 -10 / -10
Physical Exam
-
General: Well Developed, Well Nourished, Conversant, Appears Chronically Ill and Morbidly Obese
HEENT: Normocephalic, Atraumatic, Moist Mucous Membranes and Oxygen (MIDFLOW 6L)
Respiratory: Rales
Cardiac: S1/S2 and Irregular Rhythm; Negative Murmur, Rub or Gallop
GI: Soft, Nontender, Nondistended and Normal Bowel Sounds; Negative Organomegaly
Rectal: Deferred by Provider
Musculoskeletal: No Clubbing, No Cyanosis and Other (Bilateral chronic venous stasis changes -EDEMA improved)
Skin: Negative Rash
Neuro: Awake, Alert, Oriented, AO x 3, No Motor Deficits and Nonfocal/Grossly Intact
Psych: Calm
Data Reviewed
-
Total Time Spent with Patient (in minutes): 55
[2024-07-06] MEDS: ALDACTONE 12.5 MG PO (11:59)
[2024-07-06 12:17] LABS: Glucose - Point of Care 143 mg/dl (70-99)
--- NOTE | 2024-07-06 13:25 | PTCARENOTE ---
Pt states shee feels 'loopy' due to her CO2. VSS Rsp called to place on BIPAP
--- NOTE | 2024-07-06 13:29 | PTCARENOTE ---
Rsp came to room pt states she wants to eat first.Therapist talking with pt.
--- NOTE | 2024-07-06 13:52 | PTCARENOTE ---
Pt choose to eat rather than get on Bipap
--- NOTE | 2024-07-06 16:28 | CM ---
Patient with Hx HF, morbid obesity, ambulatory dysfunction. O2/BiPAP. Receiving IV Lasix. Seen by wound care nurse. PT/OT; requires assist of 2, recommmend skilled rehab.
SNF referrals reviewed.
Phone call to patient's daughter Iesha; left message regarding responses to SNF referrals. Requested daughter let CM know which facility she prefers.
Plan follow patient's O2 needs.
Plan follow up with daughter re; SNF preference.
[2024-07-06] MEDS: LIPITOR 10 MG PO (17:18)
[2024-07-06] MEDS: SINGULAIR 10 MG PO (17:18)
[2024-07-06] MEDS: NOVOLOG FLEXPEN-LOW RESISTANCE 1 UNITS SC (17:19)
[2024-07-06 17:24] LABS: Glucose - Point of Care 165 mg/dl (70-99)
[2024-07-06] MEDS: XALATAN OPHTHALMIC SOLUTION 1 DROP BOTH EYES (20:16)
[2024-07-06] MEDS: TYLENOL 1000 MG PO (20:16)
[2024-07-06] MEDS: TUMS CHEWABLE TABLET 200 MG PO (21:50)
[2024-07-07] VITALS (11 sets, daily range): BP systolic 109–153; BP diastolic 67–99; PULSE 2–88; BMI 50.5
--- NOTE | 2024-07-07 02:28 | PTCARENOTE ---
Patient AAOx3. A-fib on tele. RT placed pt on BiPAP, pt tolerating. SpO2 93%. Attempting to turn patient side to side with pillows and repositioning, pt moaning in pain when being turned, and states it is ''too uncomfortable' with the pillows on her
sides. Attempted to educate the patient on the risk of pressure injuries from her limited mobility, pt understanding but still refusing pressure redistribution solutions. Pt states that she has pain all over and especially in her legs, PRN tylenol
administered. Partial bath given, purewick changed and perineal care done. Oral care done. Pt has call smith within reach.
[2024-07-07 04:48] LABS: Hematocrit 36.3 % (37.0-47.0); Hemoglobin 10.9 g/dL (12.0-16.0); Mean Corpuscular Hgb 26.1 pg (27.0-31.0); Mean Corpuscular Volume 86.8 fL (81.0-99.0); Mean Platelet Volume 11.1 fL (7.4-10.4); Platelet Count 270 10^3/uL (130-400); Red Blood Cell Count 4.18 10^6/uL (4.20-5.40); Red Cell Dist. Width 16.3 % (11.5-14.5); White Blood Cell Count 6.7 10^3/uL (4.8-10.8)
[2024-07-07 05:16] LABS: Blood Urea Nitrogen 31 mg/dl (7-17); Calcium 10.2 mg/dl (8.4-10.2); Chloride 86 mmol/L (98-107); Estimated Creatinine Clearance 65 ml/min; Glucose 144 mg/dl (70-99); Potassium 3.8 mmol/L (3.5-5.1); Sodium 138 mmol/L (135-145); eGFR > 60.00
[2024-07-07 05:38] LABS: Carbon Dioxide 43 mmol/L (22-30)
[2024-07-07] MEDS: SYNTHROID 100 MCG PO (05:41)
[2024-07-07 06:16] LABS: B.E. 19.3 mmol/L; O2 Saturation % 94.5 % (94-98); PO2 66 mmHg (83-108); pH 7.42 (7.35-7.45)
[2024-07-07 06:23] LABS: HCO3 48.6 mmol/L (21-28); PCO2 75 mmHg (32-35)
[2024-07-07] MEDS: PULMICORT 0.5 MG INH ×2 (07:21→19:24)
[2024-07-07] MEDS: ATROVENT NEBULES 0.5 MG INH ×2 (07:21→19:24)
[2024-07-07 08:05] LABS: Glucose - Point of Care 170 mg/dl (70-99)
--- NOTE | 2024-07-07 08:10 | W.PN.PUL3 ---
Today's Communication / Plan
-
Continue diuresis
Continue BiPAP
Dietary discretion
Continue nebulized therapy
Discontinue antibiotics after today
Assessment
-
Assessment: 78-year-old female with a past medical history of CROW on CPAP, interstitial lung disease, asthma, hypertension, hypothyroidism, DM type II, history of ulcerative colitis, history of right lower extremity cellulitis, A-fib on Eliquis and
chronic hypoxic respiratory failure on 2 L/min with activity who presented with worsening shortness of breath and dry cough. The patient is on 2 L/min with activity and also uses 2 L/min through her CPAP, however over the last several days her
oxygen levels were worsening and she stopped wearing her CPAP and instead was wearing up to 6 L/min nasal cannula continuously. Also noted to have worsening lower extremity edema and was sleeping on a chair due to sats significant shortness of
breath. She then started to not able to move from the bed to the chair or walk due to her dyspnea and had chest heaviness. In the ER she was afebrile to 98.4 �F, pulse rate 80, breathing at 24 breaths/min, BP 163/94 and saturating 86% on 6 L/min.
Saturations did improve to 93% on the same amount of O2 at 6 L/min. Labs showed Hb 10.5, proBNP 459, and COVID-19 antigen negative. CXR showed increased bilateral interstitial markings suspicious for acute interstitial/alveolar cardiogenic
pulmonary edema. In the ER she was given 40 mg IV Lasix. She was admitted to the IMU where she continues to be monitored; blood gas obtained on the evening of 07/02/2024 and again on the morning of 07/03/2024 shows acute on chronic hypercapnic
respiratory failure with pH 7.36, pCO2 82. Pulmonary service now consulted for additional management/recommendations.
Chronic conditions MARKET DEVELOPMENT MANAGER: Asthma, hypertension, hypothyroidism, psoriasis, hyperlipidemia, diverticulosis, IBS, glaucoma, DM type II, history of ulcerative colitis, rosacea, fibrocystic breast, history of right lower extremity cellulitis, A-fib on
Eliquis, CROW on CPAP, interstitial lung disease, chronic hypoxic respiratory failure on 2 L/min with activity
Impression:
#Acute respiratory failure with hypoxia
#Acute on chronic respiratory failure with hypercapnia
#Acute decompensated heart failure with increased bilateral interstitial markings and groundglass opacities seen on CXR from 07/01/2024
#Metabolic alkalosis due to chronic hypercapnic respiratory failure/OHS
#Acute anemia
#Chronic diastolic heart failure with TTE from 02/15/2024 showing stage II diastolic dysfunction with moderate with peak/mean gradients of 38/24 mmHg and borderline moderate PH with PASP 39
#Severe morbid obesity with BMI: 52.5
#History of asthma on Breo at home with Duonebs + prn budesonide
#CROW/OHS on nocturnal CPAP as an outpatient bled with 2L/min
#DM type II
#History of ulcerative colitis
#History of ILD with CT chest from 05/06/2021 showing bilateral mosaic attenuation with scattered subpleural nodules and bronchiolitis
#Paroxysmal A-fib with RVR on Eliquis
#Chronic lymphedema
Plan/recommendations:
At this time, patient appears to be comfortable on nasal cannula, negative fluid status noted
Weight is decreased 13 kg since admission
Crackles resolved on exam
CXR 07/06 with persistent bilateral interstitial changes, suspected pulmonary edema
Lower extremity swelling has improved significantly
Moving forward
Continue with Lasix therapy, diuresis
Echo rechecked on 07/04/24 showing hyperdynamic LV systolic function with LVEF 65-70%, with normal RV size and function, moderate
Reviewed at length dietary discretion
Continue with nocturnal BiPAP
ABG 7.42/75/66
This is more towards patient baseline
Continues to be diuresed, component of metabolic alkalemia
May require a few doses of Diamox, hold for now
Follow clinically
Not convinced pneumonia, remains on doxycycline
We will discontinue
No white count, no fevers
Influenza negative
She takes budesonide BID prn and DuoNebs BID at home
Continue budesonide, ipratropium for now. Will discontinue Xopenex
Continue to follow volume status
DVT ppx: Eliquis
Will need to reschedule visit in the next few weeks
We will set up appointment with sleep clinic. Patient will contact our office
Data:
CXR 07/03/2024:
Limited study with extremely low lung volumes again noted.
Cardiomegaly again seen.
Bilateral prominent interstitial markings and some predominantly bibasilar groundglass opacity again seen, possibly representing acute interstitial and alveolar pulmonary edema. No pneumothorax.
Total time spent today was 36 minutes for this encounter. Time includes reviewing laboratory test/imaging results, reviewing pertinent medical records, obtaining and reviewing medical history, performing an appropriate exam, ordering medications,
tests and procedures. Time also includes documentation of this encounter, coordinating patient care and communicating with other healthcare professionals. Total time does not include separately billed tests performed on this date of service.
Subjective Data
-
Date of Service:
Date of Service: July 07, 2024
Chief Complaint: Pulmonary Follow Up
Subjective:
Patient feels much improved. Less short of breath. Denies chest pain, cough. Tolerating BiPAP overnight. -2 L. Weight is down 13 kg since admission. at bedside
Objective Data
Data Reviewed
Vital Signs / I&O / Oxygen:
Vital Signs
Temp Pulse Resp BP Pulse Ox
98.0 F 83 23 150/82 91
07/07/24 02:54 07/07/24 07:23 07/07/24 07:23 07/07/24 06:00 07/07/24 07:23
Intake and Output
07/06/24 07/07/24 07/08/24
06:59 06:59 06:59
Intake Total 240 / 240
Output Total 250 / 250 1150 / 1150
Balance -10 / -10 -1150 / -1150
SaO2 91
Nasal Cannula flow liters per 5
minute
Physical Exam
General: Comfortable
HEENT: Normocephalic, Anicteric and Other (thick neck)
Cardiovascular: S1-S2, Irregular Rhythm (Irregularly irregular, mildly tachycardic) and Peripheral Edema (+1 lower extremity pitting edema bilaterally, chronic venous stasis changes)
Respiratory: Wheeze (negative), Crackles (n), Rhonchi (negative), Non-Labored Respirations, Stridor (negative) and Other (Diminished breath sounds due to body habitus)
GI: Soft, Distended (Significant abdominal obesity), Non Tender and Normal Bowel Sounds
Neurology: Awake and Alert
Skin: Cyanosis (negative) and Jaundice (negative)
Labs/Micro/Reports
Lab Data
07/07/24 04:33
07/07/24 04:33
Laboratory Results
07/07/24
05:56
pH 7.42
pCO2 75 H*
pO2 66 L
HCO3 48.6 H*
O2 Delivery Level
[2024-07-07] MEDS: KCL ELIXIR 40 MEQ PO (08:44)
[2024-07-07] MEDS: CARDIZEM CD 240 MG PO ×3 (08:45→20:04)
[2024-07-07] MEDS: COZAAR 100 MG PO (08:45)
[2024-07-07] MEDS: ZYRTEC 10 MG PO (08:45)
[2024-07-07] MEDS: VIBRAMYCIN 100 MG PO ×2 (08:46→20:04)
[2024-07-07] MEDS: VITAMIN D3 (cholecalciferol) 25 MCG PO (08:46)
[2024-07-07] MEDS: MAGNESIUM OXIDE 500 MG PO (08:46)
[2024-07-07] MEDS: CYANOCOBALAMIN 1000 MCG IM (08:46)
[2024-07-07] MEDS: ALDACTONE 12.5 MG PO (08:46)
[2024-07-07] MEDS: ELIQUIS 5 MG PO ×2 (08:46→20:03)
[2024-07-07] MEDS: LASIX 40 MG IV ×2 (08:46→15:52)
[2024-07-07] MEDS: NOVOLOG FLEXPEN-LOW RESISTANCE 1 UNITS SC ×3 (08:47→17:40)
[2024-07-07] MEDS: NON-FORMULARY ITEM 1 APPLIC TOPICAL (08:48)
[2024-07-07] MEDS: SENOKOT 17.2 MG PO ×2 (09:13→20:04)
[2024-07-07] MEDS: COLACE PO (09:13)
--- NOTE | 2024-07-07 09:42 | W.PN.CARDCBS ---
Today's Communication / Plan
-
Transition from IV Lasix to p.o. Bumex tomorrow and continue on discharge
We will sign off, please recall as needed
Impression / Plan
-
[employer]way Worker: Lara Bullock
Impression:
Multifactorial dyspnea
Acute decompensated heart failure with preserved ejection fraction
Aortic stenosis last graded as moderate January 2024
Obstructive sleep apnea
Interstitial lung disease
She has a history of connective tissue disease, possibly Sjogren's, SS-A positive, BGMA Granulomatosis/polyangitis�
Essential hypertension
Paroxysmal atrial fibrillation
8.4% burden on outpatient monitoring December 2023
Maintained on Eliquis anticoagulation for atrial fibrillation related thromboembolic risk reduction
Morbid obesity
Chronic lymphedema
Diabetes mellitus, type II
Ulcerative colitis
Hypothyroidism
Echocardiogram February 15, 2024 finds LVEF of 60-65% with no wall motion abnormality. Left atrium is mildly dilated. There is moderate aortic stenosis with peak and mean gradients of 38 and 24 mmHg.
Echo Jul 04 2024: Normal left ventricular wall thickness. Hyperdynamic left ventricular systolic function. 65-70% by visual assessment. Normal right ventricular size and function. Trace mitral regurgitation.
Moderate aortic stenosis. Peak/mean gradients across the aortic valve are 40/21 mmHg. Mild tricuspid regurgitation. Trivial pericardial effusion. No significant change compared to prior echocardiogram
Plan:
#Acute HFpEF
Echo remains stable with preserved EF and mod
Transition from IV lasix to PO bumex tomorrow 07/08
Increase aldactone
There is a history of UTI, so will not start Jardiance or Farxiga
Wean O2 as able
#AFib
HRs are reasonable in Afib, goal <110 bpm
Cont Cardizem 240 mg TID
Avoid amiodarone given her ILD
Could add metoprolol for additional rate control if needed
Cont Eliquis
We will sign off, please recall as need
Follow up to be arranged
Check BMP in 1-2 weeks
Recommended cardiac meds on discharge:
Bumex 1mg daily
Spironolactone 25mg daily
Losartan 100mg daily
Diltiazem 240mg TID
Apixaban 5mg BID
Atorvastatin 10mg daily
Progress Note - [employer] Worker
Subjective
Date of Service: July 07, 2024
NAOE. Resting comfortably in bed this AM. Tells me edema has resolved. Mouth is dry, but this chronic due to sicca.
Objective
Labs:
07/07/24 04:33
07/07/24 04:33
Labs
Hgb 10.9 g/dL (12.0-16.0) L 07/07/24 04:33
Hct 36.3 % (37.0-47.0) L 07/07/24 04:33
Plt Count 270 10^3/uL (130-400) 07/07/24 04:33
Sodium 138 mmol/L (135-145) 07/07/24 04:33
Potassium 3.8 mmol/L (3.5-5.1) 07/07/24 04:33
BUN 31 mg/dl (7-17) H 07/07/24 04:33
Creatinine 0.9 mg/dL (0.6-1.0) 07/07/24 04:33
Glucose 144 mg/dl (70-99) H 07/07/24 04:33
Vital Signs and I&O:
Vital Signs
Temp Pulse Resp BP Pulse Ox
98.5 F 114 23 153/92 91
07/07/24 07:16 07/07/24 08:45 07/07/24 07:23 07/07/24 08:45 07/07/24 07:23
Vital Signs
Temp Pulse Resp BP Pulse Ox
98.5 F 114 23 153/92 91
07/07/24 07:16 07/07/24 08:45 07/07/24 07:23 07/07/24 08:45 07/07/24 07:23
Intake & Output
07/05/24 07/06/24 07/07/24 07/08/24
06:59 06:59 06:59 06:59
Intake Total 80 / 80 240 / 240
Output Total 550 / 550 250 / 250 1150 / 1150
Balance -470 / -470 -10 / -10 -1150 / -1150
Physical Exam
Physical Exam
Gen: NAD, AAOx3
HEENT: NC/AT, sclera anicteric
Neck: Difficult to assess JVP
CV: Irregularly irregular, distant heart sounds
Lungs: No increased work of breathing on 5 L nasal cannula
Abd: S/ND
Ext: No LE edema, overlying chronic venous stasis changes
Skin: Warm, dry
Neuro: Non-focal
--- NOTE | 2024-07-07 11:05 | W.PN.HOSP.TC ---
Today's Communication/Plan
-
IV lasix-po in am
po kcl
po abx
wean o2
tx out of IMU
start dispo efforts
Assessment / Plan
Assessment / Plan
78-year-old female admitted with progressive shortness of breath. Has been short of breath for a while she does not weigh herself for the past 1 year. She also had some productive cough no fever. She could not even transfer from her wheelchair to
the walker. She has been using oxygen which she was prescribed for as needed use has been using it [id number] Does not like BiPAP, On high flow now
# Acute on chronic hypoxic and hypercapnic respiratory failure secondary to CHF , possible pneumonia, noncompliance with CPAP, suspected obesity hypoventilation
Improvement in oxygenation now down titrated to mid flow. 5 to 6 L at rest
# Acute on chronic HFpEF with moderate aortic stenosis
Volume overloaded
Dietary indiscretion and also she does not weigh herself at home
Continue Lasix 40 mg IV twice daily with plan to transtion to po Bumex 1mg daily
Losing weight.
Salt and fluid restriction
Intake output charting, daily weights, CHF education
Patient does have respiratory acidosis and metabolic alkalosis, metabolic alkalosis is making hypoxia worse.
Repeat echo normal left ventricular function. EF 65 to 70%. Normal right ventricular size function. Moderate aortic stenosis. Travel pericardial effusion.
Troponin negative
# Acute hypercapnic respiratory failure-BiPAP ordered. She was not using her CPAP at home for several days prior to coming in because she was using her oxygen only at night.
ABG noted.
Encourage BiPAP as much as she can.
With a baseline pCO2 of 82 agree , that she is not symptomatic now , she does not have Much room for worsening pCO2 before it makes her symptomatic.
Pulmonary consultation appreciated
# Pneumonia cannot be ruled out-multiple medication allergies noted. Started doxycycline and watch. Complete finite course. Tolerating.
# Aortic stenosis moderate per last echo January 2024
# Paroxysmal atrial fibrillation-continue Eliquis, Cardizem
# Hypertension-continue losartan 100 mg daily, diltiazem 240 mg 3 times a day
# Asthma-budesonide, Singulair, as needed neb treatment
# Chronic respiratory failure on as needed oxygen as outpatient
# Zjttkycu-Gujq-Doqg sliding scale coverage. Hemoglobin A1c 7.4-hold Januvia 100 mg daily, metformin 500 twice daily
# Anemia- B 12 def replace. Iron deficiency-replace
# Hypothyroidism-continue Synthroid 100 mcg daily
# Hypercalcemia w/hypo VIT D-Was started on supplementation. Mildly elevated intact PTH. Calcium stabilized. Outpatient follow-up recommended.
# Psoriasis
# Sleep apnea-CPAP
# Hyperlipidemia-continue atorvastatin
# History of nephrolithiasis
# Diverticulosis
# Morbid obesity with a BMI of 52
# DJD/ambulatory dysfunction/osteoarthritis-PT eval
# Glaucoma-continue travoprost eyedrops
#Constipation-good results with enema. Continue with senna and Colace. MiraLAX as needed.
# Multiple antibiotic allergies-Dr. Park made patient as well as daughter aware that she should follow-up with an apparel machinery instructor and see if she has true allergies to these antibiotics. Both of them are aware that when and if she needs antibiotics
for serious infections this can be in a way of treating it and she will only get suboptimal antibiotic choices at that time if she is listed as allergic to all these
# DVT prophylaxis-Eliquis
# Full code
PT/OT-SNF on dc. CM aware. Start dispo
Anticipated Discharge: 24 - 48 hours
Subjective/Interval History
-
Date of Service: July 07, 2024
states of dry mouth
on 4L oxygen now
states of productive cough at times
Objective Data
-
Labs:
Laboratory Results
07/07/24 07/07/24
04:33 05:56
WBC 6.7
Hgb 10.9 L
Hct 36.3 L
Plt Count 270
HCO3 48.6 H*
Sodium 138
Potassium 3.8
Chloride 86 L
Carbon Dioxide 43 H
BUN 31 H
Creatinine 0.9
Glucose 144 H
Calcium 10.2
Vital Signs:
Vital Signs
Temp Pulse Resp BP Pulse Ox
98.5 F 114 23 153/92 90
07/07/24 07:16 07/07/24 08:45 07/07/24 07:23 07/07/24 08:45 07/07/24 09:43
I&O
07/06/24 07/07/24 07/08/24
06:59 06:59 06:59
Intake Total 240 / 240
Output Total 250 / 250 1150 / 1150
Balance -10 / -10 -1150 / -1150
Physical Exam
-
General: Well Developed, Well Nourished, Conversant, Appears Chronically Ill and Morbidly Obese
HEENT: Normocephalic, Atraumatic, Moist Mucous Membranes and Oxygen (MIDFLOW 6L)
Respiratory: Rales
Cardiac: S1/S2 and Irregular Rhythm; Negative Murmur, Rub or Gallop
GI: Soft, Nontender, Nondistended and Normal Bowel Sounds; Negative Organomegaly
Rectal: Deferred by Provider
Musculoskeletal: No Clubbing, No Cyanosis and Other (Bilateral chronic venous stasis changes -edema continues to improve )
Skin: Negative Rash
Neuro: Awake, Alert, Oriented, AO x 3, No Motor Deficits and Nonfocal/Grossly Intact
Psych: Calm
Data Reviewed
-
Total Time Spent with Patient (in minutes): 55
[2024-07-07 12:22] LABS: Glucose - Point of Care 176 mg/dl (70-99)
--- NOTE | 2024-07-07 12:56 | PTCARENOTE ---
Assumed care of pt from machinist 2nd shift RN. AAOX3. A.fib on magazine designer. Spo2 94% on 5L nasal cannula. Cardiology at bedside this morning. Plan to transition from IV Lasix to PO Bumex tomorrow. Full bed bath given with bathing wipes. Purewick
exchanged. Pt requesting nutrition consult. Order placed by RN. Downgrade order placed. Awaiting return call from [facility] to give report. Pt resting in bed, call smith in reach. Family at bedside. Assessment documented.
--- NOTE | 2024-07-07 14:18 | PTCARENOTE ---
Received patient from IMU via stretcher. AAOx3, pulled over from stretcher to bed. AAOx3. Anxious. Assessed and oriented to room. at bedside. Call smith in close reach.
[2024-07-07 15:31] LABS: Glucose - Point of Care 150 mg/dl (70-99)
[2024-07-07 17:01] LABS: Glucose - Point of Care 171 mg/dl (70-99)
[2024-07-07] MEDS: LIPITOR 10 MG PO (17:33)
[2024-07-07] MEDS: SINGULAIR 10 MG PO (17:33)
[2024-07-07] MEDS: COLACE 100 MG PO (20:03)
[2024-07-07] MEDS: XALATAN OPHTHALMIC SOLUTION 1 DROP BOTH EYES (20:04)
[2024-07-07] MEDS: TUMS CHEWABLE TABLET 200 MG PO (21:14)
[2024-07-07 22:40] LABS: Glucose - Point of Care 175 mg/dl (70-99)
[2024-07-08] VITALS (8 sets, daily range): BP systolic 115–139; BP diastolic 62–78; PULSE 2; BMI 50.3
[2024-07-08] MEDS: TYLENOL 1000 MG PO ×2 (01:46→20:27)
[2024-07-08] MEDS: SYNTHROID 100 MCG PO (05:45)
[2024-07-08] MEDS: PULMICORT 0.5 MG INH ×2 (07:28→19:03)
[2024-07-08] MEDS: ATROVENT NEBULES 0.5 MG INH ×2 (07:28→19:03)
[2024-07-08 08:14] LABS: Glucose - Point of Care 138 mg/dl (70-99)
[2024-07-08] MEDS: SENOKOT 17.2 MG PO (08:29)
[2024-07-08] MEDS: NOVOLOG FLEXPEN-LOW RESISTANCE SC (08:29)
[2024-07-08] MEDS: MAGNESIUM OXIDE 500 MG PO (08:30)
[2024-07-08] MEDS: COZAAR 100 MG PO (08:30)
[2024-07-08] MEDS: BUMEX 1 MG PO (08:30)
[2024-07-08] MEDS: COLACE 100 MG PO (08:30)
[2024-07-08] MEDS: VITAMIN D3 (cholecalciferol) 25 MCG PO (08:30)
[2024-07-08] MEDS: CARDIZEM CD 240 MG PO ×3 (08:30→20:26)
[2024-07-08] MEDS: ELIQUIS 5 MG PO ×2 (08:30→20:26)
[2024-07-08] MEDS: VIBRAMYCIN 100 MG PO (08:30)
[2024-07-08] MEDS: ALDACTONE 25 MG PO (08:31)
[2024-07-08] MEDS: ZYRTEC 10 MG PO (08:31)
[2024-07-08] MEDS: CYANOCOBALAMIN 1000 MCG IM (08:31)
[2024-07-08] MEDS: KCL 20 MEQ PO (08:31)
[2024-07-08] MEDS: NON-FORMULARY ITEM 1 APPLIC TOPICAL (12:08)
[2024-07-08 12:10] LABS: Glucose - Point of Care 214 mg/dl (70-99)
[2024-07-08] MEDS: NOVOLOG FLEXPEN-LOW RESISTANCE 2 UNITS SC (12:21)
--- NOTE | 2024-07-08 14:25 | CHAP ---
Cici had requested a production cloth cutter visit. , Reed, was present when I came. Cici shared her story of suffering and struggle, and asked for a Bible reading. Emotional and spiritual support provided, along with a copy of the New Testament, and
assurance of our on-going availability.
--- NOTE | 2024-07-08 16:24 | W.PN.HOSP.TC ---
Today's Communication/Plan
-
All discussed with the patient and her at the bedside
All the questions
Discussed with the nurse
DVT prophylaxis Eliquis
Assessment / Plan
Assessment / Plan
Physical exam:
General: Awake, alert and oriented x3, emotional not in distress and holds appropriate conversation.
HEENT: No active discharge, ecchymosis or bruising, moist lips, tongue and mucous membrane.
Eyes: No discharge or red conjunctiva, no nystagmus, pupils are reactive and equal
Neck:Supple, no JVD no bruit no goiter.
Respiratory: Normal AP contour and diameter, normal chest wall movement, normal respiratory effort, no respiratory distress,
Lungs: Good air entry bilaterally, no wheezing or rhonchi, no rales or crackles
Heart: S1, S2 regular, normal rate, no added sound.
Gastrointestinal: Positive bowel sounds, soft, nontender, no guarding or rigidity or organomegaly
Musculoskeletal: , no chest wall abnormality or tenderness. All joints and extremities have good range of motion, no muscle tenderness or any joint swelling or tenderness.
Extremities: Mild to moderate lower extreme pitting edema but better than before, chronic skin change and demarcation and stasis dermatitis impression good range of motion
Skin: Warm and dry, no joint.
Neurological: Awake, alert and oriented x3, moves extremities freely, normal mentation
Psychiatric: Normal mood, normal thought and judgment, normal affect,
# Acute on chronic hypoxic and hypercapnic respiratory failure secondary to CHF , possible pneumonia, noncompliance with CPAP, suspected obesity hypoventilation
Improvement in oxygenation now down to 2 L
Try to wean off.
# Acute on chronic HFpEF with moderate aortic stenosis
Volume overloaded
Dietary indiscretion and also she does not weigh herself at home
Was on Lasix 40 mg IV twice daily until today changed to Bumex 1 mg daily, preferably changed to Diamox as her metabolic alkalosis is worsening
Losing weight.
Salt and fluid restriction, and happy about fluid restriction because of her dry mouth secondary to Sjogren's
Intake output charting, daily weights, CHF education
Patient does have respiratory acidosis and metabolic alkalosis, metabolic alkalosis is making hypoxia worse.
Repeat echo normal left ventricular function. EF 65 to 70%. Normal right ventricular size function. Moderate aortic stenosis. Travel pericardial effusion.
Troponin negative
# Acute hypercapnic respiratory failure-BiPAP ordered. She was not using her CPAP at home for several days prior to coming in because she was using her oxygen only at night.
ABG noted.
Encourage BiPAP as much as she can. Does not like the facemask, discussed with the nurse triggering respiratory team to see if they can get a nasal oral mask only
Advised about compliance was on BiPAP, she does not have Much room for worsening pCO2 before it makes her symptomatic.
Pulmonary consultation appreciated
Metabolic alkalosis, chronic bicarbonate be MP usually around 30s but this is high as 43 now. Stop Bumex and start Diamox for couple of day
Recheck lab
# Pneumonia cannot be ruled out-multiple medication allergies noted. Started doxycycline and watch. Complete the course tomorrow
# Aortic stenosis moderate per last echo January 2024
# Paroxysmal atrial fibrillation-continue Eliquis, Cardizem
# Hypertension-continue losartan 100 mg daily, diltiazem 240 mg 3 times a day
# Asthma-budesonide, Singulair, as needed neb treatment
# Chronic respiratory failure on as needed oxygen as outpatient
# Qzqsjdmp-Yrai-Aflt sliding scale coverage. Hemoglobin A1c 7.4-hold Januvia 100 mg daily, metformin 500 twice daily
# Anemia- B 12 def replace. Iron deficiency-replace
# Hypothyroidism-continue Synthroid 100 mcg daily
# Hypercalcemia w/hypo VIT D-Was started on supplementation. Mildly elevated intact PTH. Calcium stabilized. Outpatient follow-up recommended.
# Psoriasis
# Sleep apnea-CPAP
# Hyperlipidemia-continue atorvastatin
# History of nephrolithiasis
# Diverticulosis
# Morbid obesity with a BMI of 52
# DJD/ambulatory dysfunction/osteoarthritis-PT eval
# Glaucoma-continue travoprost eyedrops
#Constipation-good results with enema. Continue with senna and Colace. MiraLAX as needed.
# Multiple antibiotic allergies-Dr. Park made patient as well as daughter aware that she should follow-up with an crusher screen repairer and see if she has true allergies to these antibiotics. Both of them are aware that when and if she needs antibiotics
for serious infections this can be in a way of treating it and she will only get suboptimal antibiotic choices at that time if she is listed as allergic to all these
# DVT prophylaxis-Eliquis
# Full code
PT/OT-SNF on dc. CM aware. Start dispo
Anticipated Discharge: > 48 hours
Subjective/Interval History
-
Date of Service: July 08, 2024
Seen and examined, awake and alert, at the bedside.
Patient multiple complain including not able to get around well while her lower extremity edema is much better by her witness and her .
Sound like she is unhappy with the daughter that she wanted to go to SNF while daughter took a flight to go to [place].
Still short of breath with exertion, on 2 L oxygen. Diuretic changed to Bumex orally today by cardiology.
Denies any fever or chill or any chest pain or cough or congestion, no headache or vision change,
Moves her bowel and eats and drinks well.
Pending reevaluation by PT
Objective Data
-
Vital Signs:
Vital Signs
Temp Pulse Resp BP Pulse Ox
97.6 F 79 16 139/69 94
07/08/24 15:15 07/08/24 15:15 07/08/24 15:15 07/08/24 15:15 07/08/24 15:15
I&O
07/07/24 07/08/24 07/09/24
07:59 07:59 07:59
Intake Total 240 / 240
Output Total 1150 / 1150 1550 / 1550
Balance -1150 / -1150 -1310 / -1310
Review of Systems
-
Unable to obtain full review of systems at this time due to: Other (As above while the rest of the review send negative for)
Data Reviewed
-
Medical Tests (Nuc Med, Echo etc): Report Reviewed by me
Labs: Labs Reviewed by me
--- NOTE | 2024-07-08 16:33 | W.PN.PUL3 ---
Today's Communication / Plan
-
Continue diuresis/cardiac management
Follow daily labs
Continue BiPAP at night and with naps. ABG is compensated.
Avoid sedatives.
Continue nebulizer therapy as prior admission.
Hopefully discharge planning soon
Assessment
-
Assessment: 78-year-old female with a past medical history of CROW on CPAP, interstitial lung disease, asthma, hypertension, hypothyroidism, DM type II, history of ulcerative colitis, history of right lower extremity cellulitis, A-fib on Eliquis and
chronic hypoxic respiratory failure on 2 L/min with activity who presented with worsening shortness of breath and dry cough. The patient is on 2 L/min with activity and also uses 2 L/min through her CPAP, however over the last several days her
oxygen levels were worsening and she stopped wearing her CPAP and instead was wearing up to 6 L/min nasal cannula continuously. Also noted to have worsening lower extremity edema and was sleeping on a chair due to sats significant shortness of
breath. She then started to not able to move from the bed to the chair or walk due to her dyspnea and had chest heaviness. In the ER she was afebrile to 98.4 �F, pulse rate 80, breathing at 24 breaths/min, BP 163/94 and saturating 86% on 6 L/min.
Saturations did improve to 93% on the same amount of O2 at 6 L/min. Labs showed Hb 10.5, proBNP 459, and COVID-19 antigen negative. CXR showed increased bilateral interstitial markings suspicious for acute interstitial/alveolar cardiogenic
pulmonary edema. In the ER she was given 40 mg IV Lasix. She was admitted to the IMU where she continues to be monitored; blood gas obtained on the evening of 07/02/2024 and again on the morning of 07/03/2024 shows acute on chronic hypercapnic
respiratory failure with pH 7.36, pCO2 82. Pulmonary service now consulted for additional management/recommendations.
Chronic conditions SOURCING MANAGER: Asthma, hypertension, hypothyroidism, psoriasis, hyperlipidemia, diverticulosis, IBS, glaucoma, DM type II, history of ulcerative colitis, rosacea, fibrocystic breast, history of right lower extremity cellulitis, A-fib on
Eliquis, CROW on CPAP, interstitial lung disease, chronic hypoxic respiratory failure on 2 L/min with activity
Impression:
#Acute respiratory failure with hypoxia
#Acute on chronic respiratory failure with hypercapnia
#Acute decompensated heart failure with increased bilateral interstitial markings and groundglass opacities seen on CXR from 07/01/2024
#Metabolic alkalosis due to chronic hypercapnic respiratory failure/OHS
#Acute anemia
#Chronic diastolic heart failure with TTE from 02/15/2024 showing stage II diastolic dysfunction with moderate with peak/mean gradients of 38/24 mmHg and borderline moderate PH with PASP 39
#Severe morbid obesity with BMI: 52.5
#History of asthma on Breo at home with Duonebs + prn budesonide
#CROW/OHS on nocturnal CPAP as an outpatient bled with 2L/min
#DM type II
#History of ulcerative colitis
#History of ILD with CT chest from 05/06/2021 showing bilateral mosaic attenuation with scattered subpleural nodules and bronchiolitis
#Paroxysmal A-fib with RVR on Eliquis
#Chronic lymphedema
Plan/recommendations:
Clinically improved since admission: Currently on 2 L nasal cannula oxygen.
Weight is trending lower: Weight is decreased 13 kg since admission
Crackles resolved on exam
CXR 07/06 with persistent bilateral interstitial changes, suspected pulmonary edema
Lower extremity swelling has improved significantly
-
Continue diuretics per primary team.
Echo rechecked on 07/04/24 showing hyperdynamic LV systolic function with LVEF 65-70%, with normal RV size and function, moderate
Reviewed at length dietary discretion
Continue cardiac management
Compensated hypercapnic respiratory failure:
Continue with nocturnal BiPAP-compliance encouraged.
ABG 7.42/75/66
This is more towards patient baseline
Patient states that she is having difficulty tolerating full facemask-unfortunately we will have selection of mass to offer her. I recommended her to try her best.
Continues to be diuresed, component of metabolic alkalemia
Diamox for few days, follow daily labs.
Avoid sedatives.
Not convinced pneumonia, remains on doxycycline complete 5 to 7 days.
No white count, no fevers
Influenza negative
-
She takes budesonide BID prn and DuoNebs BID at home
Continue budesonide, ipratropium for now.
Xopenex discontinued.
Continue to follow volume status
DVT ppx: Eliquis
Will need to reschedule visit in the next few weeks
We will set up appointment with sleep clinic. Patient will contact our office.
Data:
CXR 07/03/2024:
Limited study with extremely low lung volumes again noted.
Cardiomegaly again seen.
Bilateral prominent interstitial markings and some predominantly bibasilar groundglass opacity again seen, possibly representing acute interstitial and alveolar pulmonary edema. No pneumothorax.
Subjective Data
-
Date of Service:
Date of Service: July 08, 2024
Chief Complaint: Pulmonary Follow Up (Acute hypoxemic respiratory failure)
Subjective:
No overnight events
Clinically improved
Review of Systems
Cardiopulmonary: Dyspnea (Improved)
Objective Data
Data Reviewed
Vital Signs / I&O / Oxygen:
Vital Signs
Temp Pulse Resp BP Pulse Ox
97.6 F 79 16 139/69 94
07/08/24 15:15 07/08/24 15:15 07/08/24 15:15 07/08/24 15:15 07/08/24 15:15
Intake and Output
07/07/24 07/08/24 07/09/24
06:59 06:59 06:59
Intake Total 240 / 240
Output Total 1150 / 1150 1550 / 1550
Balance -1150 / -1150 -1310 / -1310
SaO2 94
Nasal Cannula flow liters per 2
minute
Physical Exam
General: Comfortable
HEENT: Normocephalic, Anicteric and Other (thick neck)
Cardiovascular: S1-S2, Irregular Rhythm (Irregularly irregular, mildly tachycardic) and Peripheral Edema (+1 lower extremity pitting edema bilaterally, chronic venous stasis changes)
Respiratory: Wheeze (negative), Crackles (n), Rhonchi (negative), Non-Labored Respirations, Stridor (negative) and Other (Diminished breath sounds due to body habitus)
GI: Soft, Distended (Significant abdominal obesity), Non Tender and Normal Bowel Sounds
Neurology: Awake and Alert
Skin: Cyanosis (negative) and Jaundice (negative)
Labs/Micro/Reports
Lab Data
07/07/24 04:33
07/07/24 04:33
[2024-07-08 16:37] LABS: Glucose - Point of Care 170 mg/dl (70-99)
[2024-07-08] MEDS: NOVOLOG FLEXPEN-LOW RESISTANCE 1 UNITS SC (16:39)
[2024-07-08] MEDS: LIPITOR 10 MG PO (17:19)
[2024-07-08] MEDS: SINGULAIR 10 MG PO (17:19)
[2024-07-08] MEDS: COLACE PO (20:26)
[2024-07-08] MEDS: DIAMOX 500 MG PO (20:26)
[2024-07-08] MEDS: SENOKOT PO (20:26)
[2024-07-08] MEDS: XALATAN OPHTHALMIC SOLUTION 1 DROP BOTH EYES (20:27)
[2024-07-08] MEDS: TUMS CHEWABLE TABLET 200 MG PO (20:27)
[2024-07-08 22:37] LABS: Glucose - Point of Care 165 mg/dl (70-99)
[2024-07-09 03:55] VITALS: BP 126/89
[2024-07-09 06:00] VITALS: BMI 50.2
[2024-07-09] MEDS: SYNTHROID 100 MCG PO (06:16)
[2024-07-09] MEDS: ATROVENT NEBULES 0.5 MG INH ×2 (07:22→19:04)
[2024-07-09] MEDS: PULMICORT 0.5 MG INH ×2 (07:22→19:04)
[2024-07-09 07:35] VITALS: BP 141/73
[2024-07-09 08:08] LABS: ALT (SGPT) 12 U/L (0-35); AST (SGOT) 22 U/L (14-36); Albumin 3.8 g/dl (3.5-5.0); Alkaline Phosphatase 173 U/L (38-126); Blood Urea Nitrogen 31 mg/dl (7-17); Calcium 11.3 mg/dl (8.4-10.2); Chloride 89 mmol/L (98-107); Estimated Creatinine Clearance 53 ml/min; Glucose 154 mg/dl (70-99); Magnesium 2.4 mg/dl (1.6-2.3); Sodium 140 mmol/L (135-145); Total Bilirubin 0.7 mg/dl (0.2-1.3); Total Protein 7.2 g/dl (6.3-8.2); eGFR 51.43
[2024-07-09 08:31] LABS: Glucose - Point of Care 150 mg/dl (70-99)
[2024-07-09 08:35] LABS: Carbon Dioxide 41 mmol/L (22-30)
[2024-07-09] MEDS: OCEAN, SALINE MIST 1 SPRAYS NASAL (11:19)
[2024-07-09] MEDS: DIAMOX 500 MG PO ×2 (11:20→21:46)
[2024-07-09] MEDS: SENOKOT 17.2 MG PO (11:20)
[2024-07-09] MEDS: ELIQUIS 5 MG PO ×2 (11:21→21:46)
[2024-07-09] MEDS: MAGNESIUM OXIDE 500 MG PO (11:21)
[2024-07-09] MEDS: VITAMIN D3 (cholecalciferol) 25 MCG PO (11:21)
[2024-07-09] MEDS: COZAAR 100 MG PO (11:21)
[2024-07-09] MEDS: CYANOCOBALAMIN 1000 MCG IM (11:21)
[2024-07-09] MEDS: CARDIZEM CD 240 MG PO ×2 (11:21→18:23)
[2024-07-09] MEDS: NOVOLOG FLEXPEN-LOW RESISTANCE 1 UNITS SC (11:22)
[2024-07-09] MEDS: COLACE 100 MG PO (11:22)
[2024-07-09] MEDS: ALDACTONE 25 MG PO (11:22)
[2024-07-09] MEDS: ZYRTEC 10 MG PO (11:22)
[2024-07-09] MEDS: KCL 20 MEQ PO (11:22)
[2024-07-09] MEDS: NON-FORMULARY ITEM 1 APPLIC TOPICAL (11:46)
[2024-07-09 11:57] VITALS: BP 114/69
[2024-07-09 12:41] LABS: Glucose - Point of Care 222 mg/dl (70-99)
[2024-07-09] MEDS: NOVOLOG FLEXPEN-LOW RESISTANCE 2 UNITS SC ×2 (12:52→18:24)
--- NOTE | 2024-07-09 14:19 | W.PN.HOSP.TC ---
Today's Communication/Plan
-
All discussed with the patient
Discussed with the detail today
Discussed with
Assessment / Plan
Assessment / Plan
Physical exam:
General: Awake, alert and oriented x3, emotional not in distress and holds appropriate conversation.
HEENT: No active discharge, ecchymosis or bruising, moist lips, tongue and mucous membrane.
Neck:Supple, no JVD no bruit no goiter.
Respiratory: Normal AP contour and diameter, normal chest wall movement, normal respiratory effort, no respiratory distress,
Lungs: Good air entry bilaterally, no wheezing or rhonchi, no rales or crackles
Heart: S1, S2 regular, normal rate, no added sound.
Gastrointestinal: Positive bowel sounds, soft, nontender, no guarding or rigidity or organomegaly
Musculoskeletal: , no chest wall abnormality or tenderness. All joints and extremities have good range of motion, no muscle tenderness or any joint swelling or tenderness.
Extremities: Mild to moderate lower extreme pitting edema but better than before, chronic skin change and demarcation and stasis dermatitis impression good range of motion
Skin: Warm and dry, no joint.
# Acute on chronic hypoxic and hypercapnic respiratory failure secondary to CHF , possible pneumonia, noncompliance with CPAP, suspected obesity hypoventilation
Improvement in oxygenation now down to 2 L
Try to wean off.
# Acute on chronic HFpEF with moderate aortic stenosis
Volume overloaded
Dietary indiscretion and also she does not weigh herself at home
Was on Lasix 40 mg IV twice daily until July 08, 2024, changed to Bumex 1 mg daily, I changed to Diamox as her metabolic alkalosis is worsening, HCO3 and BMP yesterday was 43 today is 41
Losing weight.
Salt and fluid restriction, and happy about fluid restriction because of her dry mouth secondary to Sjogren's
Intake output charting, daily weights, CHF education
Patient does have respiratory acidosis and metabolic alkalosis, metabolic alkalosis is making hypoxia worse.
Repeat echo normal left ventricular function. EF 65 to 70%. Normal right ventricular size function. Moderate aortic stenosis. Travel pericardial effusion.
Troponin negative
# Acute hypercapnic respiratory failure-BiPAP ordered. She was not using her CPAP at home for several days prior to coming in because she was using her oxygen only at night.
ABG noted.
Encourage BiPAP as much as she can.
The respiratory team gave you a different mask last night but she still did not like it
Advised about compliance was on BiPAP, she does not have Much room for worsening pCO2 before it makes her symptomatic.
Pulmonary consultation appreciated
Metabolic alkalosis, chronic bicarbonate be MP usually around 30s but this is high as 43 yesterday and today is 41. Stop Bumex and start Diamox for couple of day
Recheck lab
# Pneumonia cannot be ruled out-multiple medication allergies noted. Started doxycycline and watch. Complete the course today
# Aortic stenosis moderate per last echo January 2024
# Paroxysmal atrial fibrillation-continue Eliquis, Cardizem
# Hypertension-continue losartan 100 mg daily, diltiazem 240 mg 3 times a day
# Asthma-budesonide, Singulair, as needed neb treatment
# Chronic respiratory failure on as needed oxygen as outpatient
# Xpneubtp-Zoxp-Xtqm sliding scale coverage. Hemoglobin A1c 7.4-hold Januvia 100 mg daily, metformin 500 twice daily
# Anemia- B 12 def replace. Iron deficiency-replace
# Hypothyroidism-continue Synthroid 100 mcg daily
# Hypercalcemia w/hypo VIT D-Was started on supplementation. Mildly elevated intact PTH. Calcium stabilized. Outpatient follow-up recommended.
# Psoriasis
# Sleep apnea-CPAP
# Hyperlipidemia-continue atorvastatin
# History of nephrolithiasis
# Diverticulosis
# Morbid obesity with a BMI of 52
# DJD/ambulatory dysfunction/osteoarthritis-PT eval
# Glaucoma-continue travoprost eyedrops
#Constipation-good results with enema. Continue with senna and Colace. MiraLAX as needed.
# Multiple antibiotic allergies-Dr. Park made patient as well as daughter aware that she should follow-up with an improvement director and see if she has true allergies to these antibiotics. Both of them are aware that when and if she needs antibiotics
for serious infections this can be in a way of treating it and she will only get suboptimal antibiotic choices at that time if she is listed as allergic to all these
# DVT prophylaxis-Eliquis
# Full code
PT/OT-SNF on dc. CM aware. Start dispo
Anticipated Discharge: 24 - 48 hours
Subjective/Interval History
-
Date of Service: July 09, 2024
Seen and examined, sleepy, arousable, but did not sleep well again last night given they tried different mask for her CPAP machine, according to the nurse was on and off all night with the mask.
Sound and feels frustrated because feeling weak and lousy and lethargic.
PT OT still pending to see her, complaining of dry mouth as well as nasal congestion,
Denies any fever or chill or cough or congestion. Lower extremity edema has been
Objective Data
-
Labs:
Laboratory Results
07/09/24
06:37
Sodium 140
Potassium 4.0
Chloride 89 L
Carbon Dioxide 41 H
BUN 31 H
Creatinine 1.1 H
Glucose 154 H
Calcium 11.3 H
Total Bilirubin 0.7
AST 22
ALT 12
Alkaline Phosphatase 173 H
Vital Signs:
Vital Signs
Temp Pulse Resp BP Pulse Ox
98 F 81 18 114/69 95
07/09/24 11:57 07/09/24 11:57 07/09/24 11:57 07/09/24 11:57 07/09/24 13:13
I&O
07/08/24 07/09/24 07/10/24
07:59 07:59 07:59
Intake Total 240 / 240 480 / 480 600 / 600
Output Total 1550 / 1550 750 / 750
Balance -1310 / -1310 -270 / -270 600 / 600
Data Reviewed
-
Labs: Labs Reviewed by me
Old Records: Reviewed
[2024-07-09 15:55] VITALS: BP 112/69
--- NOTE | 2024-07-09 17:00 | W.PN.PUL3 ---
Today's Communication / Plan
-
Continue diuresis
Diamox for a few days-would not discharged on this medication
Continue BiPAP at night and with naps as able
Continue nebulizer therapy.
Outpatient pulmonary follow-up
Sign
Assessment
-
Assessment: 78-year-old female with a past medical history of CROW on CPAP, interstitial lung disease, asthma, hypertension, hypothyroidism, DM type II, history of ulcerative colitis, history of right lower extremity cellulitis, A-fib on Eliquis and
chronic hypoxic respiratory failure on 2 L/min with activity who presented with worsening shortness of breath and dry cough. The patient is on 2 L/min with activity and also uses 2 L/min through her CPAP, however over the last several days her
oxygen levels were worsening and she stopped wearing her CPAP and instead was wearing up to 6 L/min nasal cannula continuously. Also noted to have worsening lower extremity edema and was sleeping on a chair due to sats significant shortness of
breath. She then started to not able to move from the bed to the chair or walk due to her dyspnea and had chest heaviness. In the ER she was afebrile to 98.4 �F, pulse rate 80, breathing at 24 breaths/min, BP 163/94 and saturating 86% on 6 L/min.
Saturations did improve to 93% on the same amount of O2 at 6 L/min. Labs showed Hb 10.5, proBNP 459, and COVID-19 antigen negative. CXR showed increased bilateral interstitial markings suspicious for acute interstitial/alveolar cardiogenic
pulmonary edema. In the ER she was given 40 mg IV Lasix. She was admitted to the IMU where she continues to be monitored; blood gas obtained on the evening of 07/02/2024 and again on the morning of 07/03/2024 shows acute on chronic hypercapnic
respiratory failure with pH 7.36, pCO2 82. Pulmonary service now consulted for additional management/recommendations.
Chronic conditions FSR: Asthma, hypertension, hypothyroidism, psoriasis, hyperlipidemia, diverticulosis, IBS, glaucoma, DM type II, history of ulcerative colitis, rosacea, fibrocystic breast, history of right lower extremity cellulitis, A-fib on
Eliquis, CROW on CPAP, interstitial lung disease, chronic hypoxic respiratory failure on 2 L/min with activity
Impression:
#Acute respiratory failure with hypoxia
#Acute on chronic respiratory failure with hypercapnia
#Acute decompensated heart failure with increased bilateral interstitial markings and groundglass opacities seen on CXR from 07/01/2024
#Metabolic alkalosis due to chronic hypercapnic respiratory failure/OHS
#Acute anemia
#Chronic diastolic heart failure with TTE from 02/15/2024 showing stage II diastolic dysfunction with moderate with peak/mean gradients of 38/24 mmHg and borderline moderate PH with PASP 39
#Severe morbid obesity with BMI: 52.5
#History of asthma on Breo at home with Duonebs + prn budesonide
#CROW/OHS on nocturnal CPAP as an outpatient bled with 2L/min
#DM type II
#History of ulcerative colitis
#History of ILD with CT chest from 05/06/2021 showing bilateral mosaic attenuation with scattered subpleural nodules and bronchiolitis
#Paroxysmal A-fib with RVR on Eliquis
#Chronic lymphedema
Plan/recommendations:
Clinically improved since admission: Currently on 2 L nasal cannula oxygen.
Significant decrease in weight since admission. Lower extremity swelling improved
Crackles resolved on exam
CXR 07/06 with persistent bilateral interstitial changes, suspected pulmonary edema
-
Continue diuretics per primary team.
Echo rechecked on 07/04/24 showing hyperdynamic LV systolic function with LVEF 65-70%, with normal RV size and function, moderate
Reviewed at length dietary discretion
Continue cardiac management
Compensated hypercapnic respiratory failure:
Continue with nocturnal BiPAP-compliance encouraged.
ABG 7.42/75/66
Baseline.
Patient states that she is having difficulty tolerating full facemask-unfortunately we will have selection of mass to offer her. I recommended her to try her best.
Continues to be diuresed, component of metabolic alkalemia
Okay to use Diamox for a few days and then discontinued. Would not discharge on this medication.
Avoid sedatives.
Not convinced pneumonia, remains on doxycycline completed course.
No white count, no fevers
Influenza negative
-
She takes budesonide BID prn and DuoNebs BID at home-continue upon discharge.
Continue budesonide, ipratropium for now.
Xopenex discontinued.
Continue to follow volume status
DVT ppx: Eliquis
Will need to reschedule visit in the next few weeks
We will set up appointment with sleep clinic. Patient will contact our office.
No additional recommendation from the pulmonary perspective.
Sign off
Data:
CXR 07/03/2024:
Limited study with extremely low lung volumes again noted.
Cardiomegaly again seen.
Bilateral prominent interstitial markings and some predominantly bibasilar groundglass opacity again seen, possibly representing acute interstitial and alveolar pulmonary edema. No pneumothorax.
Subjective Data
-
Date of Service:
Date of Service: July 09, 2024
Chief Complaint: Pulmonary Follow Up (Acute hypoxemic respiratory failure )
Subjective:
Overall improved since admission
Denies any increased coughing or phlegm production
Weight is trending lower
Review of Systems
Cardiopulmonary: Dyspnea (Chronic, improved) and Cough (n)
GI: Abdominal Pain (n) and Nausea (n)
Objective Data
Data Reviewed
Vital Signs / I&O / Oxygen:
Vital Signs
Temp Pulse Resp BP Pulse Ox
98.3 F 84 20 112/69 96
07/09/24 15:55 07/09/24 15:55 07/09/24 15:55 07/09/24 15:55 07/09/24 15:55
Intake and Output
07/08/24 07/09/24 07/10/24
06:59 06:59 06:59
Intake Total 240 / 240 480 / 480 600 / 600
Output Total 1550 / 1550 750 / 750
Balance -1310 / -1310 -270 / -270 600 / 600
SaO2 96
Nasal Cannula flow liters per 4
minute
Physical Exam
General: Comfortable
HEENT: Normocephalic, Anicteric and Other (thick neck)
Cardiovascular: S1-S2, Irregular Rhythm (Irregularly irregular, mildly tachycardic) and Peripheral Edema (+1 lower extremity pitting edema bilaterally, chronic venous stasis changes)
Respiratory: Wheeze (negative), Crackles (n), Rhonchi (negative), Non-Labored Respirations, Stridor (negative) and Other (Diminished breath sounds due to body habitus)
GI: Soft, Distended (Significant abdominal obesity), Non Tender and Normal Bowel Sounds
Neurology: Awake and Alert
Skin: Cyanosis (negative) and Jaundice (negative)
Labs/Micro/Reports
Lab Data
07/07/24 04:33
07/09/24 06:37
[2024-07-09 17:23] LABS: Glucose - Point of Care 200 mg/dl (70-99)
[2024-07-09] MEDS: SINGULAIR 10 MG PO (18:23)
[2024-07-09] MEDS: LIPITOR 10 MG PO (18:23)
[2024-07-09] MEDS: TYLENOL 1000 MG PO (19:27)
[2024-07-09] MEDS: TUMS CHEWABLE TABLET 200 MG PO (19:28)
[2024-07-09 19:39] VITALS: BP 118/75
[2024-07-09 21:18] LABS: Glucose - Point of Care 202 mg/dl (70-99)
[2024-07-09] MEDS: SENOKOT PO (21:20)
[2024-07-09] MEDS: COLACE PO (21:20)
[2024-07-09] MEDS: XALATAN OPHTHALMIC SOLUTION 1 DROP BOTH EYES (21:26)
[2024-07-09] MEDS: OCEAN, SALINE MIST 2 SPRAYS NASAL (21:27)
[2024-07-09 22:46] VITALS: PULSE 2; PULSE 81
[2024-07-10] VITALS (8 sets, daily range): BP systolic 104–149; BP diastolic 62–78; PULSE 2–95; O2SAT 95; BMI 50.6
[2024-07-10] MEDS: CARDIZEM CD PO ×2 (00:03→17:44)
[2024-07-10] MEDS: SYNTHROID 100 MCG PO (06:13)
[2024-07-10] MEDS: PULMICORT 0.5 MG INH ×2 (07:22→19:50)
[2024-07-10] MEDS: ATROVENT NEBULES 0.5 MG INH ×2 (07:22→19:50)
[2024-07-10 08:35] LABS: Blood Urea Nitrogen 34 mg/dl (7-17); Calcium 11.5 mg/dl (8.4-10.2); Chloride 89 mmol/L (98-107); Estimated Creatinine Clearance 49 ml/min; Glucose 159 mg/dl (70-99); Potassium 4.1 mmol/L (3.5-5.1); Sodium 139 mmol/L (135-145); eGFR 46.33
[2024-07-10 08:45] LABS: Carbon Dioxide 41 mmol/L (22-30)
[2024-07-10 08:53] LABS: Glucose - Point of Care 148 mg/dl (70-99)
[2024-07-10] MEDS: NOVOLOG FLEXPEN-LOW RESISTANCE SC (09:37)
[2024-07-10] MEDS: OCEAN, SALINE MIST 1 SPRAYS NASAL (10:09)
[2024-07-10] MEDS: CYANOCOBALAMIN 1000 MCG IM (10:09)
[2024-07-10] MEDS: MAGNESIUM OXIDE 500 MG PO (10:11)
[2024-07-10] MEDS: CARDIZEM CD 240 MG PO ×2 (10:11→20:41)
[2024-07-10] MEDS: COZAAR 100 MG PO (10:13)
[2024-07-10] MEDS: ZYRTEC 10 MG PO (10:13)
[2024-07-10] MEDS: KCL 20 MEQ PO (10:15)
[2024-07-10] MEDS: COLACE PO ×2 (10:15→20:37)
[2024-07-10] MEDS: VITAMIN D3 (cholecalciferol) 25 MCG PO (10:16)
[2024-07-10] MEDS: ELIQUIS 5 MG PO ×2 (10:16→20:37)
[2024-07-10] MEDS: ALDACTONE 25 MG PO (10:16)
[2024-07-10] MEDS: DIAMOX 500 MG PO (10:16)
[2024-07-10] MEDS: SENOKOT PO ×2 (10:27→20:37)
[2024-07-10] MEDS: NON-FORMULARY ITEM 1 APPLIC TOPICAL (10:27)
[2024-07-10 13:35] LABS: Glucose - Point of Care 210 mg/dl (70-99)
[2024-07-10] MEDS: NOVOLOG FLEXPEN-LOW RESISTANCE 2 UNITS SC (13:37)
--- NOTE | 2024-07-10 16:07 | W.PN.HOSP.TC ---
Today's Communication/Plan
-
Case management to help daughter for discharge planning
Hold losartan, Diamox tonight
Restart metformin and Januvia
Watch creatinine tomorrow
Assessment / Plan
Assessment / Plan
CVS: S1-S2 normal
Chest: CTA B/L
Abdomen: Soft, NT / Bowel sounds present
Extremities: No edema, chronic venous stasis changes
# Acute on chronic hypoxic and hypercapnic respiratory failure secondary to CHF , possible pneumonia, noncompliance with CPAP, suspected obesity hypoventilation
Improvement in oxygenation now down to 2 L
Try to wean ..
# Acute on chronic HFpEF with moderate aortic stenosis
Volume overloaded
Dietary indiscretion and also she does not weigh herself at home
Was on Lasix 40 mg IV twice daily until July 08, 2024, changed to Bumex 1 mg daily, changed to Diamox as her metabolic alkalosis is worsening, but with elevated creat
Salt and fluid restriction, unhappy about fluid restriction because of her dry mouth secondary to Sjogren's
Intake output charting, daily weights, CHF education
Patient does have respiratory acidosis and metabolic alkalosis, metabolic alkalosis is making hypoxia worse.
Repeat echo normal left ventricular function. EF 65 to 70%. Normal right ventricular size function. Moderate aortic stenosis. Trivial pericardial effusion.
Troponin negative
# Acute hypercapnic respiratory failure-BiPAP ordered. She was not using her CPAP at home for several days prior to coming in because she was using her oxygen only at night.
ABG noted.
Encourage BiPAP as much as she can.
The respiratory team gave you a different mask last night but she still did not like it
Advised about compliance was on PAP, she does not have Much room for worsening pCO2 before it makes her symptomatic.
# Pneumonia cannot be ruled out-multiple medication allergies noted. Started doxycycline Completed the course .
# Aortic stenosis moderate per last echo January 2024
# Paroxysmal atrial fibrillation-continue Eliquis, Cardizem
# Hypertension-Hold losartan 100 mg daily, contnue diltiazem 240 mg 3 times a day
# Asthma-budesonide, Singulair, as needed neb treatment
# Chronic respiratory failure on as needed oxygen as outpatient
# Ahtvgdis-Sioe-Myjh sliding scale coverage. Hemoglobin A1c 7.4-Restart Januvia 50 mg ( Instead of 100 mg daily), metformin 500 twice daily
# Anemia- B 12 def replace. Iron deficiency-replace
# Hypothyroidism-continue Synthroid 100 mcg daily
# Hypercalcemia w/hypo VIT D-Was started on supplementation. Mildly elevated intact PTH. Calcium stabilized. Outpatient follow-up recommended.
# Psoriasis
# Sleep unzxj-EYRL-ce BiPAP here
# Hyperlipidemia-continue atorvastatin
# History of nephrolithiasis
# Diverticulosis
# Morbid obesity with a BMI of 52
# DJD/ambulatory dysfunction/osteoarthritis-PT eval
# Glaucoma-continue travoprost eyedrops
#Constipation-good results with enema. Continue with senna and Colace. MiraLAX as needed.
# Multiple antibiotic allergies-Dr. Park made patient as well as daughter aware that she should follow-up with an coordinator of health services and see if she has true allergies to these antibiotics. Both of them are aware that when and if she needs antibiotics
for serious infections this can be in a way of treating it and she will only get suboptimal antibiotic choices at that time if she is listed as allergic to all these
# DVT prophylaxis-Eliquis
# Full code
Discussed with nursing at bedside
Patient has been refusing to go to rehab and daughter stated that she has everything set up mobility mejia to go home she needs home care agencies
Discussed with case management to give patient's daughter home care agencies
Discussed with at bedside
Anticipated Discharge: 24 - 48 hours
Subjective/Interval History
-
Date of Service: July 10, 2024
Objective Data
-
Labs:
Laboratory Results
07/10/24
07:00
Sodium 139
Potassium 4.1
Chloride 89 L
Carbon Dioxide 41 H
BUN 34 H
Creatinine 1.2 H
Glucose 159 H
Calcium 11.5 H
Vital Signs:
Vital Signs
Temp Pulse Resp BP Pulse Ox
97.4 F 85 14 120/66 97
07/10/24 11:05 07/10/24 11:05 07/10/24 11:05 07/10/24 11:05 07/10/24 11:05
I&O
07/09/24 07/10/24 07/11/24
06:59 06:59 06:59
Intake Total 480 / 480 1979 / 1979
Output Total 750 / 750 600 / 600
Balance -270 / -270 1380 / 1380
[2024-07-10 17:34] LABS: Glucose - Point of Care 182 mg/dl (70-99)
[2024-07-10] MEDS: NOVOLOG FLEXPEN-LOW RESISTANCE 1 UNITS SC (17:42)
[2024-07-10] MEDS: JANUVIA 50 MG PO (17:42)
[2024-07-10] MEDS: SINGULAIR 10 MG PO (17:43)
[2024-07-10] MEDS: GLUCOPHAGE 500 MG PO (17:44)
[2024-07-10] MEDS: LIPITOR 10 MG PO (17:49)
[2024-07-10] MEDS: XALATAN OPHTHALMIC SOLUTION 1 DROP BOTH EYES (20:37)
[2024-07-10 21:13] LABS: Glucose - Point of Care 203 mg/dl (70-99)
[2024-07-11 03:15] VITALS: PULSE 2; PULSE 77
[2024-07-11 06:00] VITALS: BMI 50.2
[2024-07-11] MEDS: SYNTHROID 100 MCG PO (06:13)
[2024-07-11] MEDS: TYLENOL 1000 MG PO (06:17)
[2024-07-11] MEDS: ATROVENT NEBULES 0.5 MG INH ×2 (07:03→19:36)
[2024-07-11] MEDS: PULMICORT 0.5 MG INH ×2 (07:03→19:36)
[2024-07-11 07:21] LABS: Glucose - Point of Care 149 mg/dl (70-99)
[2024-07-11 07:30] VITALS: BP 89/64
[2024-07-11 07:48] LABS: Blood Urea Nitrogen 40 mg/dl (7-17); Calcium 11.2 mg/dl (8.4-10.2); Chloride 90 mmol/L (98-107); Estimated Creatinine Clearance 39 ml/min; Glucose 146 mg/dl (70-99); Potassium 4.4 mmol/L (3.5-5.1); Sodium 138 mmol/L (135-145); eGFR 35.45
[2024-07-11 08:04] LABS: Carbon Dioxide 37 mmol/L (22-30)
[2024-07-11] MEDS: NOVOLOG FLEXPEN-LOW RESISTANCE SC ×3 (08:31→17:36)
[2024-07-11] MEDS: JANUVIA 50 MG PO ×2 (09:26→12:43)
[2024-07-11] MEDS: CARDIZEM CD 240 MG PO ×3 (09:26→22:06)
[2024-07-11] MEDS: VITAMIN D3 (cholecalciferol) 25 MCG PO (09:26)
[2024-07-11] MEDS: MAGNESIUM OXIDE 500 MG PO (09:26)
[2024-07-11] MEDS: ZYRTEC 10 MG PO (09:27)
[2024-07-11] MEDS: ELIQUIS 5 MG PO ×2 (09:27→19:55)
[2024-07-11] MEDS: COLACE 100 MG PO ×2 (09:27→19:55)
[2024-07-11] MEDS: CYANOCOBALAMIN 1000 MCG IM (09:27)
[2024-07-11] MEDS: SENOKOT 17.2 MG PO ×2 (09:27→19:54)
[2024-07-11] MEDS: GLUCOPHAGE PO (09:28)
[2024-07-11] MEDS: NON-FORMULARY ITEM 1 APPLIC TOPICAL (09:28)
[2024-07-11 11:57] LABS: Glucose - Point of Care 402 mg/dl (70-99)
[2024-07-11] MEDS: NOVOLOG FLEXPEN 12 UNITS SC (12:44)
--- NOTE | 2024-07-11 15:04 | W.PN.HOSP.TC ---
Today's Communication/Plan
-
Once arrangements are made for home and if creatinine is improving we will discharge the patient at that time.
BMP in the morning
Hold Diamox
Assessment / Plan
Assessment / Plan
CVS: S1-S2 normal
Chest: CTA B/L
Abdomen: Soft, NT / Bowel sounds present
Extremities: No edema, chronic venous stasis changes
# Acute on chronic hypoxic and hypercapnic respiratory failure secondary to CHF , possible pneumonia, noncompliance with CPAP, suspected obesity hypoventilation
Improvement in oxygenation now down to 2 L
# Acute on chronic HFpEF with moderate aortic stenosis
Volume overloaded
Dietary indiscretion and also she does not weigh herself at home
Was on Lasix 40 mg IV twice daily until July 08, 2024, changed to Bumex 1 mg daily, changed to Diamox as her metabolic alkalosis is worsening, but with elevated creat , hold both
Salt and fluid restriction, unhappy about fluid restriction because of her dry mouth secondary to Sjogren's
Intake output charting, daily weights, CHF education
Repeat echo normal left ventricular function. EF 65 to 70%. Normal right ventricular size function. Moderate aortic stenosis. Trivial pericardial effusion.
Troponin negative
# Acute hypercapnic respiratory failure-BiPAP ordered. She was not using her CPAP at home for several days prior to coming in because she was using her oxygen only at night.
ABG noted.
Encourage BiPAP as much as she can.
The respiratory team gave you a different mask last night but she still did not like it
Advised about compliance was on PAP, she does not have Much room for worsening pCO2 before it makes her symptomatic.
# Pneumonia cannot be ruled out-multiple medication allergies noted. Doxycycline Completed the course .
# Aortic stenosis moderate per last echo January 2024
# Paroxysmal atrial fibrillation-continue Eliquis, Cardizem
# Hypertension-Hold losartan 100 mg daily, continue diltiazem 240 mg 3 times a day
# Asthma-budesonide, Singulair, as needed neb treatment
# Chronic respiratory failure on as needed oxygen as outpatient
# Ixjvlhxv-Ipaf-Xogq sliding scale coverage. Hemoglobin A1c 7.4-Restarted Januvia 100 mg daily. Hold metformin 500 twice daily as creat up.
# Anemia- B 12 def replace. Iron deficiency-replace
# Hypothyroidism-continue Synthroid 100 mcg daily
# Hypercalcemia w/hypo VIT D-Was started on supplementation. Mildly elevated intact PTH. Calcium stabilized. Now high from FAVIAN- Watch .Outpatient follow-up recommended.
# Psoriasis
# Sleep [id number]-PYAP-[id number] BiPAP here
# Hyperlipidemia-continue atorvastatin
# History of nephrolithiasis
# Diverticulosis
# Morbid obesity with a BMI of 52
# DJD/ambulatory dysfunction/osteoarthritis-PT eval
# Glaucoma-continue travoprost eyedrops
#Constipation-good results with enema. Continue with senna and Colace. MiraLAX as needed.
# Multiple antibiotic allergies-Dr. Park made patient as well as daughter aware that she should follow-up with an rn dialysis and see if she has true allergies to these antibiotics. Both of them are aware that when and if she needs antibiotics
for serious infections this can be in a way of treating it and she will only get suboptimal antibiotic choices at that time if she is listed as allergic to all these
# DVT prophylaxis-Eliquis
# Full code
Discussed with nursing at bedside
Patient has been refusing to go to rehab and daughter stated that she has everything set up mobility mejia to go home she needs home care agencies
Cse management gave patient's daughter home care agencies to call and arrrange
Discussed with at bedside
Patient is very sedentary and not making Much efforts to do her ADLs herself. is feeding her at bedside which I reminded the patient that she should be doing herself. Nursing also notes that she does not have any motivation to do anything
on her own. She was made aware that this is all going to hurt her and long-term and short-term with severe deconditioning. I discussed with the daughter about this concern.
Anticipated Discharge: Within 24 hours
Subjective/Interval History
-
Date of Service: July 11, 2024
Objective Data
-
Labs:
Laboratory Results
07/11/24
06:39
Sodium 138
Potassium 4.4
Chloride 90 L
Carbon Dioxide 37 H
BUN 40 H
Creatinine 1.5 H
Glucose 146 H
Calcium 11.2 H
Vital Signs:
Vital Signs
Temp Pulse Resp BP Pulse Ox
98.1 F 79 22 131/66 100
07/11/24 07:30 07/11/24 09:26 07/11/24 07:30 07/11/24 09:26 07/11/24 09:45
I&O
07/10/24 07/11/24 07/12/24
06:59 06:59 06:59
Intake Total 1979 / 1979 360 / 360
Output Total 600 / 600 450 / 450
Balance 1380 / 1380 -90 / -90
[2024-07-11 15:40] VITALS: BP 115/79
[2024-07-11] MEDS: LIPITOR 10 MG PO (17:17)
[2024-07-11] MEDS: SINGULAIR 10 MG PO (17:18)
[2024-07-11 17:32] LABS: Glucose - Point of Care 145 mg/dl (70-99)
[2024-07-11] MEDS: OCEAN, SALINE MIST 1 SPRAYS NASAL (19:54)
[2024-07-11] MEDS: XALATAN OPHTHALMIC SOLUTION 1 DROP BOTH EYES (19:55)
[2024-07-11 21:30] LABS: Glucose - Point of Care 170 mg/dl (70-99)
[2024-07-11 22:30] VITALS: PULSE 2
[2024-07-11 23:54] VITALS: BP 135/83
[2024-07-12] MEDS: TYLENOL 1000 MG PO (04:21)
[2024-07-12] MEDS: TUMS CHEWABLE TABLET 200 MG PO (04:21)
[2024-07-12] MEDS: SYNTHROID 100 MCG PO (05:06)
[2024-07-12 06:00] VITALS: BMI 50.4
[2024-07-12] MEDS: PULMICORT 0.5 MG INH ×2 (06:40→21:04)
[2024-07-12] MEDS: ATROVENT NEBULES 0.5 MG INH ×2 (06:40→21:04)
[2024-07-12 07:45] VITALS: BP 153/77
[2024-07-12 08:11] LABS: Glucose - Point of Care 152 mg/dl (70-99)
[2024-07-12] MEDS: NOVOLOG FLEXPEN-LOW RESISTANCE 1 UNITS SC ×2 (08:23→12:32)
[2024-07-12] MEDS: CYANOCOBALAMIN 1000 MCG IM (08:23)
[2024-07-12] MEDS: ELIQUIS 5 MG PO ×2 (08:24→21:14)
[2024-07-12] MEDS: VITAMIN D3 (cholecalciferol) 25 MCG PO (08:24)
[2024-07-12] MEDS: CARDIZEM CD 240 MG PO ×3 (08:24→21:17)
[2024-07-12] MEDS: ZYRTEC 10 MG PO (08:24)
[2024-07-12] MEDS: MAGNESIUM OXIDE 500 MG PO (08:24)
[2024-07-12] MEDS: JANUVIA 100 MG PO (08:25)
[2024-07-12] MEDS: COLACE PO ×2 (08:27→21:14)
[2024-07-12] MEDS: SENOKOT PO ×2 (08:27→21:14)
[2024-07-12] MEDS: NON-FORMULARY ITEM TOPICAL (08:30)
[2024-07-12 09:46] LABS: Blood Urea Nitrogen 43 mg/dl (7-17); Carbon Dioxide 39 mmol/L (22-30); Chloride 92 mmol/L (98-107); Estimated Creatinine Clearance 42 ml/min; Glucose 131 mg/dl (70-99); Potassium 4.3 mmol/L (3.5-5.1); Sodium 138 mmol/L (135-145); eGFR 38.51
[2024-07-12 11:40] LABS: Glucose - Point of Care 199 mg/dl (70-99)
[2024-07-12 13:30] VITALS: BP 106/74; PULSE 83; O2SAT 96
--- NOTE | 2024-07-12 14:49 | W.PN.HOSP.TC ---
Today's Communication/Plan
-
Patient is not very sure whether she is going to be going home or not. I discussed that she should be ready to be discharged either tomorrow afternoon or day after tomorrow. She needs to decide quickly whether she wants to go home if so she needs
to have services available at home to be set up. She wants to go to rehab we need to arrange for bed. I will defer this to case management
Hold diuretics today
Labs in the morning
Assessment / Plan
Assessment / Plan
Patient was sitting in a chair-recliner chair today
CVS: S1-S2 normal
Chest: CTA B/L
Abdomen: Soft, NT / Bowel sounds present
Extremities: No edema, chronic venous stasis changes
# Acute on chronic hypoxic and hypercapnic respiratory failure secondary to CHF , possible pneumonia, noncompliance with CPAP, suspected obesity hypoventilation
Improvement in oxygenation now down to 2 L
# Acute on chronic HFpEF with moderate aortic stenosis
Volume overloaded
Dietary indiscretion and also she does not weigh herself at home
Was on Lasix 40 mg IV twice daily until July 08, 2024, changed to Bumex 1 mg daily, changed to Diamox as her metabolic alkalosis is worsening, but with elevated creat , hold both
Salt and fluid restriction, unhappy about fluid restriction because of her dry mouth secondary to Sjogren's
Intake output charting, daily weights, CHF education
Repeat echo normal left ventricular function. EF 65 to 70%. Normal right ventricular size function. Moderate aortic stenosis. Trivial pericardial effusion.
Troponin negative
# Acute hypercapnic respiratory failure-BiPAP ordered. She was not using her CPAP at home for several days prior to coming in because she was using her oxygen only at night.
ABG noted.
Encourage BiPAP as much as she can.
Advised about compliance was on PAP, she does not have Much room for worsening pCO2 before it makes her symptomatic.
# Pneumonia cannot be ruled out-multiple medication allergies noted. Doxycycline Completed the course .
# Aortic stenosis moderate per last echo January 2024
# Paroxysmal atrial fibrillation-continue Eliquis, Cardizem
# Hypertension-Hold losartan 100 mg daily, continue diltiazem 240 mg 3 times a day
# Asthma-budesonide, Singulair, as needed neb treatment
# Chronic respiratory failure on as needed oxygen as outpatient
# Xfnnankt-Ihyi-Qjpb sliding scale coverage. Hemoglobin A1c 7.4-Restarted Januvia 100 mg daily and metformin 500 twice daily as creat up.
# Anemia- B 12 def replace. Iron deficiency-replace
# Hypothyroidism-continue Synthroid 100 mcg daily
# Hypercalcemia w/hypo VIT D-Was started on supplementation. Mildly elevated intact PTH. Now high from FAVIAN- Watch .Stop Tums
# Psoriasis
# Sleep [id number] BiPAP here
# Hyperlipidemia-continue atorvastatin
# History of nephrolithiasis
# Diverticulosis
# Morbid obesity with a BMI of 52
# DJD/ambulatory dysfunction/osteoarthritis-PT eval
# Glaucoma-continue travoprost eyedrops
#Constipation-good results with enema. Continue with senna and Colace. MiraLAX as needed.
# Multiple antibiotic allergies-Dr. Park made patient as well as daughter aware that she should follow-up with an reflector driller and deburrer and see if she has true allergies to these antibiotics. Both of them are aware that when and if she needs antibiotics
for serious infections this can be in a way of treating it and she will only get suboptimal antibiotic choices at that time if she is listed as allergic to all these
# DVT prophylaxis-Eliquis
# Full code
Discussed with nursing
Discussed with dietitian
Discussed with at bedside
Patient is not very sure whether she is going to be going home or not. I discussed that she should be ready to be discharged either tomorrow afternoon or day after tomorrow. She needs to decide quickly whether she wants to go home if so she needs
to have services available at home to be set up. She wants to go to rehab we need to arrange for bed. I will defer this to case management
Anticipated Discharge: Within 24 hours
Subjective/Interval History
-
Date of Service: July 12, 2024
Objective Data
-
Labs:
Laboratory Results
07/12/24
08:17
Sodium 138
Potassium 4.3
Chloride 92 L
Carbon Dioxide 39 H
BUN 43 H
Creatinine 1.4 H
Glucose 131 H
Calcium 11.0 H
Vital Signs:
Vital Signs
Temp Pulse Resp BP Pulse Ox
98.2 F 81 24 133/77 92
07/12/24 07:45 07/12/24 08:24 07/12/24 07:45 07/12/24 08:24 07/12/24 08:30
I&O
07/11/24 07/12/24 07/13/24
06:59 06:59 06:59
Intake Total 360 / 360 980 / 980
Output Total 450 / 450 300 / 300
Balance -90 / -90 680 / 680
[2024-07-12 15:15] VITALS: BP 106/74; PULSE 83; O2SAT 90
[2024-07-12 15:40] VITALS: BP 116/75
[2024-07-12 17:08] LABS: Glucose - Point of Care 152 mg/dl (70-99)
[2024-07-12] MEDS: NOVOLOG FLEXPEN-LOW RESISTANCE SC (17:34)
[2024-07-12] MEDS: GLUCOPHAGE 500 MG PO (17:34)
[2024-07-12] MEDS: LIPITOR 10 MG PO (17:34)
[2024-07-12] MEDS: SINGULAIR 10 MG PO (17:34)
[2024-07-12 21:10] LABS: Glucose - Point of Care 179 mg/dl (70-99)
[2024-07-12] MEDS: XALATAN OPHTHALMIC SOLUTION 1 DROP BOTH EYES (21:19)
[2024-07-12 22:13] VITALS: PULSE 2; PULSE 76
[2024-07-12 23:55] VITALS: BP 111/72
[2024-07-13 03:10] VITALS: PULSE 2
[2024-07-13] MEDS: SYNTHROID 100 MCG PO (05:04)
[2024-07-13 06:00] VITALS: BMI 50.4
[2024-07-13 06:51] LABS: Hematocrit 35.9 % (37.0-47.0)
[2024-07-13 07:31] LABS: Blood Urea Nitrogen 41 mg/dl (7-17); Calcium 11.4 mg/dl (8.4-10.2); Carbon Dioxide 36 mmol/L (22-30); Chloride 94 mmol/L (98-107); Estimated Creatinine Clearance 53 ml/min; Glucose 143 mg/dl (70-99); Sodium 138 mmol/L (135-145); eGFR 51.43
[2024-07-13 07:34] LABS: Glucose - Point of Care 137 mg/dl (70-99)
[2024-07-13 07:35] VITALS: BP 127/83
[2024-07-13] MEDS: ATROVENT NEBULES 0.5 MG INH ×2 (07:52→19:58)
[2024-07-13] MEDS: PULMICORT 0.5 MG INH ×2 (07:52→19:58)
[2024-07-13] MEDS: CYANOCOBALAMIN 1000 MCG IM (08:51)
[2024-07-13] MEDS: MAGNESIUM OXIDE 500 MG PO (08:51)
[2024-07-13] MEDS: ELIQUIS 5 MG PO ×2 (08:51→19:56)
[2024-07-13] MEDS: CARDIZEM CD 240 MG PO ×3 (08:51→20:56)
[2024-07-13] MEDS: VITAMIN D3 (cholecalciferol) 25 MCG PO (08:52)
[2024-07-13] MEDS: GLUCOPHAGE 500 MG PO ×2 (08:52→17:17)
[2024-07-13] MEDS: ZYRTEC 10 MG PO (08:52)
[2024-07-13] MEDS: NOVOLOG FLEXPEN-LOW RESISTANCE SC (08:53)
[2024-07-13] MEDS: JANUVIA 100 MG PO (08:53)
[2024-07-13] MEDS: NON-FORMULARY ITEM 1 APPLIC TOPICAL (08:58)
[2024-07-13] MEDS: SENOKOT PO ×2 (08:59→19:51)
[2024-07-13] MEDS: COLACE PO ×2 (08:59→19:52)
--- NOTE | 2024-07-13 10:31 | CM ---
Addendum entered by Swathi Castaneda 07/13/24 15:20:
Below note is late note from 06/11/2024.
Original Note:
Late note from 07/13/2024:
CM met at length with patient and her . Daughter is traveling abroad, so pt and need to make a decision regarding discharge to SNF vs. Home Care ([facility] known to patient) and/or private aids. List provided to daughter
previously and CM provided the list to pt and .
Plan: CM to follow up for discharge; SNF recommended, however pt insistent that she does not feel that she will benefit from SNF. The following facilities have offered a bed at discharge (pending availability): [facility],
[facility] (pending bed availability); [facility]. Additional referrals sent to Minal Curry, Chaim Ruffin, Shaylee Curry, [facility] Mao.
--- NOTE | 2024-07-13 11:34 | W.PN.HOSP.TC ---
Addendum entered and electronically signed by Zeinab Park MD 07/13/24 14:05:
Spoke to patient's daughter
Will plan discharge in the morning tomorrow
Patient/family is arranging private caregivers
Patient's son lives close by will also be able to help them while daughter is away.
Original Note:
Today's Communication/Plan
-
Creatinine is better
Discharge planning
Restart Bumex and Losartan tomorrow
Assessment / Plan
Assessment / Plan
Complaining that she is not getting enough liquids because her mouth is always dry from the Sjogren's.
CVS: S1-S2 normal
Chest: CTA B/L
Abdomen: Soft, NT / Bowel sounds present
Extremities: No edema, chronic venous stasis changes
# Acute on chronic hypoxic and hypercapnic respiratory failure secondary to CHF , possible pneumonia, noncompliance with CPAP, suspected obesity hypoventilation
Improvement in oxygenation now down to 2 L
# Acute on chronic HFpEF with moderate aortic stenosis
Volume overloaded
Dietary indiscretion and also she does not weigh herself at home
Was on Lasix 40 mg IV twice daily until July 08, 2024, changed to Bumex 1 mg daily, changed to Diamox as her metabolic alkalosis is worsening, but with elevated creat , hold both
Salt and fluid restriction, unhappy about fluid restriction because of her dry mouth secondary to Sjogren's
Intake output charting, daily weights, CHF education
Repeat echo normal left ventricular function. EF 65 to 70%. Normal right ventricular size function. Moderate aortic stenosis. Trivial pericardial effusion.
Troponin negative
# Acute hypercapnic respiratory failure-BiPAP ordered. She was not using her CPAP at home for several days prior to coming in because she was using her oxygen only at night.
ABG noted.
Encourage BiPAP as much as she can.
Advised about compliance was on PAP, she does not have Much room for worsening pCO2 before it makes her symptomatic.
# Pneumonia cannot be ruled out-multiple medication allergies noted. Doxycycline Completed the course .
# Aortic stenosis moderate per last echo January 2024
# Paroxysmal atrial fibrillation-continue Eliquis, Cardizem
# Hypertension-Restart losartan 50 mg daily tomorrow, continue diltiazem 240 mg 3 times a day
# Asthma-budesonide, Singulair, as needed neb treatment
# Chronic respiratory failure on as needed oxygen as outpatient
# Pqdlheol-Cdph-Dfpn sliding scale coverage. Hemoglobin A1c 7.4-Restarted Januvia 100 mg daily and metformin 500 twice daily
# Anemia- B 12 def replace. Iron deficiency-replace
# Hypothyroidism-continue Synthroid 100 mcg daily
# Hypercalcemia w/hypo VIT D-Was started on supplementation. Mildly elevated intact PTH. Now high from FAVIAN- Watch .Stopped Tums
# Psoriasis
# Sleep [id number] BiPAP here
# Hyperlipidemia-continue atorvastatin
# History of nephrolithiasis
# Diverticulosis
# Morbid obesity with a BMI of 52
# DJD/ambulatory dysfunction/osteoarthritis-PT eval
# Glaucoma-continue travoprost eyedrops
#Constipation-good results with enema. Continue with senna and Colace. MiraLAX as needed.
# Multiple antibiotic allergies-Dr. Park made patient as well as daughter aware that she should follow-up with an yardage estimator and see if she has true allergies to these antibiotics. Both of them are aware that when and if she needs antibiotics
for serious infections this can be in a way of treating it and she will only get suboptimal antibiotic choices at that time if she is listed as allergic to all these
# DVT prophylaxis-Eliquis
# Full code
Discussed with nursing
Called and left a message for daughter
Discussed with case management
Anticipated Discharge: Within 24 hours
Subjective/Interval History
-
Date of Service: July 13, 2024
Objective Data
-
Labs:
Laboratory Results
07/13/24 07/13/24
06:02 06:03
Hgb 11.0 L
Hct 35.9 L
Sodium 138
Potassium 4.0
Chloride 94 L
Carbon Dioxide 36 H
BUN 41 H
Creatinine 1.1 H
Glucose 143 H
Calcium 11.4 H
Vital Signs:
Vital Signs
Temp Pulse Resp BP Pulse Ox
98.3 F 81 18 127/83 96
07/13/24 07:35 07/13/24 07:56 07/13/24 07:56 07/13/24 07:35 07/13/24 07:56
I&O
07/12/24 07/13/24 07/14/24
06:59 06:59 06:59
Intake Total 980 / 980 1440 / 1440
Output Total 300 / 300 800 / 800
Balance 680 / 680 640 / 640
[2024-07-13 11:49] LABS: Glucose - Point of Care 160 mg/dl (70-99)
[2024-07-13] MEDS: NOVOLOG FLEXPEN-LOW RESISTANCE 1 UNITS SC ×2 (13:58→17:19)
[2024-07-13 15:06] VITALS: BP 145/81
--- NOTE | 2024-07-13 15:20 | CM ---
CM met with Cici, her and spoke with daughter via telephone to discuss plan for discharge. Pt is changing her mind about plan throughout the day. SNF recommended by therapy. Multiple referrals sent to area SNF.
As of 3:15 today, plan is for discharge to home with [facility]. Pt's is going to contact [facility] for assistance at home, as well. went home to bring her portable O2 in for discharge tomorrow.
Plan: Discharge to home with VN and private in-home assistance.
[2024-07-13 17:05] LABS: Glucose - Point of Care 179 mg/dl (70-99)
[2024-07-13] MEDS: PROTONIX 40 MG PO (17:17)
[2024-07-13] MEDS: SINGULAIR 10 MG PO (17:17)
[2024-07-13] MEDS: LIPITOR 10 MG PO (17:17)
--- NOTE | 2024-07-13 17:58 | PTCARENOTE ---
Luisa discontinued this shift due to redness.
[2024-07-13] MEDS: TYLENOL 1000 MG PO (19:56)
[2024-07-13] MEDS: XALATAN OPHTHALMIC SOLUTION 1 DROP BOTH EYES (20:57)
[2024-07-13 21:14] LABS: Glucose - Point of Care 156 mg/dl (70-99)
[2024-07-13 22:55] VITALS: PULSE 2; PULSE 77
[2024-07-13 23:55] VITALS: BP 131/62
[2024-07-14] MEDS: SYNTHROID 100 MCG PO (04:52)
[2024-07-14 04:56] VITALS: BMI 50.4
[2024-07-14 07:20] LABS: Blood Urea Nitrogen 41 mg/dl (7-17); Calcium 11.1 mg/dl (8.4-10.2); Carbon Dioxide 35 mmol/L (22-30); Chloride 96 mmol/L (98-107); Estimated Creatinine Clearance 53 ml/min; Glucose 134 mg/dl (70-99); Potassium 3.8 mmol/L (3.5-5.1); Sodium 138 mmol/L (135-145); eGFR 51.43
[2024-07-14 07:50] VITALS: BP 152/75
[2024-07-14 08:27] LABS: Glucose - Point of Care 144 mg/dl (70-99)
[2024-07-14] MEDS: PULMICORT 0.5 MG INH (08:45)
[2024-07-14] MEDS: ATROVENT NEBULES 0.5 MG INH (08:46)
[2024-07-14] MEDS: NOVOLOG FLEXPEN-LOW RESISTANCE SC ×2 (09:38→17:37)
[2024-07-14] MEDS: PROTONIX 40 MG PO (09:40)
[2024-07-14] MEDS: GLUCOPHAGE 500 MG PO ×2 (09:40→17:37)
[2024-07-14] MEDS: MAGNESIUM OXIDE 500 MG PO (09:40)
[2024-07-14] MEDS: VITAMIN B-12 1000 MCG PO (09:41)
[2024-07-14] MEDS: ELIQUIS 5 MG PO (09:41)
[2024-07-14] MEDS: JANUVIA 100 MG PO (09:41)
[2024-07-14] MEDS: ZYRTEC 10 MG PO (09:41)
[2024-07-14] MEDS: CARDIZEM CD 240 MG PO ×2 (09:41→15:32)
[2024-07-14] MEDS: VITAMIN D3 (cholecalciferol) 25 MCG PO (09:41)
[2024-07-14] MEDS: NON-FORMULARY ITEM 1 APPLIC TOPICAL (09:43)
[2024-07-14] MEDS: COLACE PO (09:43)
[2024-07-14] MEDS: SENOKOT PO (09:43)
--- NOTE | 2024-07-14 11:52 | W.PN.HOSP.TC ---
Today's Communication/Plan
-
Discharge
Assessment / Plan
Assessment / Plan
EKG reviewed by me
CVS: S1-S2 irregular
Chest: CTA B/L
Abdomen: Soft, NT / Bowel sounds present
Extremities: No edema, chronic venous stasis changes
# Acute on chronic hypoxic and hypercapnic respiratory failure secondary to CHF , possible pneumonia, noncompliance with CPAP, suspected obesity hypoventilation
Improvement in oxygenation now down to 2-4 L
# Acute on chronic HFpEF with moderate aortic stenosis
Volume overload
Dietary indiscretion and also she does not weigh herself at home
Was on Lasix 40 mg IV twice daily until July 08, 2024, changed to Bumex 1 mg daily, Bumex restarted today but patient wants to take it after she reaches home
Salt and fluid restriction, unhappy about fluid restriction because of her dry mouth secondary to Sjogren's
Intake output charting, daily weights, CHF education
Repeat echo normal left ventricular function. EF 65 to 70%. Normal right ventricular size function. Moderate aortic stenosis. Trivial pericardial effusion.
Troponin negative
# Acute hypercapnic respiratory failure-BiPAP ordered. She was not using her CPAP at home for several days prior to coming in because she was using her oxygen only at night.
Advised to continue with CPAP at home
# Pneumonia cannot be ruled out-multiple medication allergies noted. Doxycycline Completed the course .
# Aortic stenosis moderate per last echo January 2024
# Paroxysmal atrial fibrillation-continue Eliquis, Cardizem
# Hypertension-Restart losartan 50 mg daily tomorrow, continue diltiazem 240 mg 3 times a day
# Asthma-budesonide, Singulair, as needed neb treatment
# Chronic respiratory failure on as needed oxygen as outpatient
# Qmnfayjx-Psbb-Hfzh sliding scale coverage. Hemoglobin A1c 7.4-Continue Januvia 100 mg daily and metformin 500 twice daily
# Anemia- B 12 def replace. Iron deficiency-replace
# Hypothyroidism-continue Synthroid 100 mcg daily
# Hypercalcemia w/hypo VIT D-Was started on supplementation. Mildly elevated intact PTH. Now high from FAVIAN- Watch .Stopped Tums
# Psoriasis
# Sleep [id number]-[id number]-vz BiPAP here
# Hyperlipidemia-continue atorvastatin
# History of nephrolithiasis
# Diverticulosis
# Morbid obesity with a BMI of 52
# DJD/ambulatory dysfunction/osteoarthritis-PT eval
# Glaucoma-continue travoprost eyedrops
#Constipation-good results with enema. Continue with senna and Colace. MiraLAX as needed.
# Multiple antibiotic allergies-Dr. Park made patient as well as daughter aware that she should follow-up with an zipper lining folder and see if she has true allergies to these antibiotics. Both of them are aware that when and if she needs antibiotics
for serious infections this can be in a way of treating it and she will only get suboptimal antibiotic choices at that time if she is listed as allergic to all these
# DVT prophylaxis-Eliquis
# Full code
Discussed with nursing at bed side
D/W and grand son at home
Discussed with case management
She states that she does not like Combivent and requested separate Atrovent prescription which I have sent. She is aware about complying with medicines and also diet at home she has met with dietary 3 times
All follow-up care discussed
More than 30 minutes spent in discharge including
Final examination of the patient
Summarizing hospital stay
Instructions for continuing care to all relevant caregivers
Preparation of discharge records, prescriptions, and referral forms
Total time spent (in minutes): 45 min
Anticipated Discharge: Today
Subjective/Interval History
-
Date of Service: July 14, 2024
Objective Data
-
Labs:
Laboratory Results
07/14/24
06:17
Sodium 138
Potassium 3.8
Chloride 96 L
Carbon Dioxide 35 H
BUN 41 H
Creatinine 1.1 H
Glucose 134 H
Calcium 11.1 H
Vital Signs:
Vital Signs
Temp Pulse Resp BP Pulse Ox
98.2 F 89 16 152/75 94
07/14/24 07:50 07/14/24 08:50 07/14/24 08:50 07/14/24 07:50 07/14/24 08:50
I&O
07/13/24 07/14/24 07/15/24
06:59 06:59 06:59
Intake Total 1440 / 1440 1060 / 1060 120 / 120
Output Total 800 / 800 300 / 300
Balance 640 / 640 760 / 760 120 / 120
[2024-07-14 12:38] LABS: Glucose - Point of Care 172 mg/dl (70-99)
[2024-07-14] MEDS: NOVOLOG FLEXPEN-LOW RESISTANCE 1 UNITS SC (13:02)
--- NOTE | 2024-07-14 13:02 | CM ---
entered order for discharge.
Spoke with dgt Iesha [phone] she agrees with dc and she requested wc van.Transport slip completed.
Instructed how to make payment for wc van.
Pt has home oxygen she will need in wc van.
LM with [facility] that pt is dc.
Family is setting up [facility].
PLAN Home with [facility] fax [phone]
[2024-07-14] MEDS: TYLENOL 1000 MG PO (14:19)
[2024-07-14 14:39] VITALS: BP 137/86; PULSE 85; O2SAT 95
[2024-07-14 14:40] VITALS: BP 137/86; PULSE 85; O2SAT 95
--- NOTE | 2024-07-14 14:52 | W.DS.TRANS ---
Addendum entered and electronically signed by Zeinab Park MD 07/14/24 15:37:
Dictation- [id number]
Original Note:
DC Summary - Testing Director
-
Discharge Instructions:
Discharge Diagnosis/Procedures Acute on chronic heart failure
Moderate aortic stenosis
Acute hypercapnic respiratory failure
Pneumonia
Atrial fibrillation
Hypertension
Vitamin B12 deficiency
Asthma
Diabetes
Anemia
Hypothyroidism
Hypocalcemia
Sleep apnea
High cholesterol
Diverticulosis
Diet 2 Gram Sodium,Diabetic, Carb Controlled
Additional Diets 50 ounce fluid restriction
Activity As tolerated
Driving Restrictions No driving
Blood Work BMP in 1 week, intact PTH in 2 months
Other Services PT,VN,OT
Specialty Instructions Weigh Daily
Instructions: *PCP/Other Downstream Biomanufacturing Technician Heart Failure Instructions
Stand-Alone Forms:
Changes to Home Medications: Yes
Discharge Medications:
DC Medications w/original date entered in [employer]
albuterol sulfate 90 mcg/actuation breath activated powder inhaler (ProAir RespiClick) 90 mcg IH R Q6HPRN PRN asthma 04/05/19
budesonide 0.5 mg/2 mL suspension for nebulization 0.5 mg inhalation R BIDPRN PRN sob 07/01/24
light mineral oil 1 %-mineral oil 4.5 % eye drops (Soothe XP) 1 drp ophthalmic (eye) TIDPRN PRN both eyes 07/01/24
sodium chloride 0.65 % nasal spray aerosol 1 spray intranasal TIDPRN PRN dryness 07/01/24
apixaban 5 mg tablet (Eliquis) 5 mg PO BID Blood clot prevention/tx #0 tabs 07/14/24
atorvastatin 10 mg tablet 10 mg PO QPM High cholesterol 30 days #30 tabs 07/14/24
bumetanide 1 mg tablet 1 mg PO DAILY Fluid retention/Swelling #30 tabs 07/14/24
cetirizine 10 mg tablet 10 mg PO DAILY Allergies #0 tabs 07/14/24
cholecalciferol (vitamin D3) 25 mcg (1,000 unit) tablet 1,000 unit PO Q48H Supplement #0 tabs 07/14/24
cyanocobalamin (vitamin B-12) 1,000 mcg tablet (Vitamin B-12) 1,000 mcg PO DAILY Supplement #0 tabs 07/14/24
diltiazem HCl 240 mg capsule,extended release 24 hr 240 mg PO TID Arrhythmia #0 caps 07/14/24
docusate sodium 100 mg capsule 100 mg PO BID Constipation #0 caps 07/14/24
ipratropium 0.5 mg-albuterol 3 mg (2.5 mg base)/3 mL nebulization soln 3 ml inhalation R BID Lung/breathing issues #0 mL 07/14/24
ipratropium bromide 0.02 % solution for inhalation 0.5 mg (2.5 mL) inhalation R BID Lung/breathing issues #62.5 mL 07/14/24
levothyroxine 100 mcg tablet 100 mcg PO DAILY AT 0700 Thyroid #0 tabs 07/14/24
losartan 50 mg tablet 50 mg PO DAILY Heart Failure #0 tabs 07/14/24
magnesium oxide 500 mg PO DAILY Supplement #30 tabs 07/14/24
mesalamine 1.2 gram tablet,delayed release 2.4 g (2 x 1.2 gram) PO DAILY Gastrointestinal issue #0 tabs 07/14/24
metformin 500 mg tablet 500 mg PO BID@0800,1700 Diabetes #0 tabs 07/14/24
methylcellulose (laxative) 500 mg tablet (Citrucel) 500 mg PO QPM Constipation #0 tabs 07/14/24
montelukast 10 mg tablet 10 mg PO QPM Allergies #0 tabs 07/14/24
pantoprazole 40 mg tablet,delayed release 40 mg PO DAILY Gastrointestinal issue #30 tabs 07/14/24
sitagliptin phosphate 100 mg tablet (Januvia) 100 mg PO DAILY Diabetes #0 tabs 07/14/24
spironolactone 25 mg tablet 25 mg PO DAILY Heart disease/condition #30 tabs 07/14/24
travoprost 0.004 % eye drops 1 drp BOTH EYES HS Eye condition #0 mL 07/14/24
triamcinolone acetonide 55 mcg nasal spray aerosol (Nasacort) 1 spray intranasal DAILY Congestion #0 mL 07/14/24
Home Medication Changes
Losartan dose decreased to 50 mg daily
Protonix is new
Aldactone is new
Bumex is new
Lasix discontinued
Vitamin B12 is new
Pending Results: No
[2024-07-14 15:50] VITALS: BP 139/84
[2024-07-14 17:37] LABS: Glucose - Point of Care 139 mg/dl (70-99)
[2024-07-14] MEDS: LIPITOR 10 MG PO (17:37)
[2024-07-14] MEDS: SINGULAIR 10 MG PO (17:37)
--- NOTE | 2024-07-17 10:55 | W.HF.CON ---
Heart Failure
- LV Function
Left ventricular function study result: LV Ejection fraction >/= 50%
Ejection Fraction Percentage: 65-70
- ARNI
Patient already on ARNI: No
Heart Failure ARNI Not Indicated: LV Ejection Fraction >/= 40%
- ACEI/ARB
Patient already on ACEI/ARB: Yes
- Beta Renny
Patient already on Evidence Based Beta Renny: No
Heart Failure Evidence Based Beta Renny Not Indicated: LV Ejection Fraction > 40%
- Mineralocorticord Receptor Antagonist
Patient already on MRA: Yes
- SGLT-2 Inhibitor
Patient already on SGLT-2 Inhibitor: No
Heart Failure SGLT-2 Inhibitor Contraindication: Patient Refusal (UTI history)
- Afib Anticoagulation
Patient already on Anticoagulation for Afib: Yes
- NYHA CHF Classification
NYHA CHF Classification Level: Class III - Symptoms w/ min exertion, interferes w/ nml daily activity
- ACC/AHA Stage
ACC/AHA Stage: Stage C: Symptomatic Heart Failure
== END 2024-07-14 18:06 | disposition home health service (06) | DRG 291 ==
LOC: 4 EAST ACU 13:20
PROVIDERS: Internal Medicine; Internal Medicine Critical Care Medicine; Nurse Practitioner Family; Physician Assistant; Registered Nurse; ADMITTING PHYSICIAN Hospitalist; CONSULT PHYSICIAN Internal Medicine Cardiovascular Disease; CONSULT PHYSICIAN Internal Medicine Critical Care Medicine; EMERGENCY PHYSICIAN Emergency Medicine; FAMILY PHYSICIAN Internal Medicine
PROC: 5A09557 Assistance with Respiratory Ventilation, Greater than 96 Consecutive Hours, Continuous Positive Airway Pressure (ICD-10-PCS; 2024-07-01)
DX: I11.0 Hypertensive heart disease with heart failure (principal); I50.33 Acute on chronic diastolic (congestive) heart failure; J96.22 Acute and chronic respiratory failure with hypercapnia; J18.9 Pneumonia, unspecified organism; J96.21 Acute and chronic respiratory failure with hypoxia; J44.0 Chronic obstructive pulmonary disease with (acute) lower respiratory infection; Z68.43 Body mass index [BMI] 50.0-59.9, adult; E87.3 Alkalosis; N17.9 Acute kidney failure, unspecified; I35.0 Nonrheumatic aortic (valve) stenosis; I48.0 Paroxysmal atrial fibrillation; E53.8 Deficiency of other specified B group vitamins; E11.9 Type 2 diabetes mellitus without complications; D64.9 Anemia, unspecified; E03.9 Hypothyroidism, unspecified; E83.51 Hypocalcemia; E78.00 Pure hypercholesterolemia, unspecified; E66.01 Morbid (severe) obesity due to excess calories; G47.33 Obstructive sleep apnea (adult) (pediatric)
CPT/HCPCS: 93308; 36600; 71045; 71046; 80048; 80053; 80061; 82306; 82607; 82728; 82805; 82962; 83036; 83540; 83550; 83735; 83880; 83970; 84443; 84484; 85014; 85018; 85025; 85027; 87502; 87811; 93005; 93321; 93325; 94640; 94660; 96374; 97116; 97163; 97167; 97530; 97535; 99285

== ENCOUNTER 2024-08-11 17:23 | Inpatient (IN) | payer OTHER, SELFPAY ==
[2024-08-11] VITALS (9 sets, daily range): BP systolic 103–165; BP diastolic 53–83; BMI 48.1; BMI 46.9
--- NOTE | 2024-08-11 11:52 | ED.GENMED ---
History of Present Illness
General
Chief Complaint: Urinary Symptoms
Time Seen by Provider: 08/11/24 11:44
History of Present Illness
History of Present Illness:
Patient is a 79-year-old woman with history of A-fib on Eliquis, CHF, hypertension, hyperlipidemia presenting to the emergency department with hematuria and dysuria. Patient states that when she first was started on Eliquis in the fall she had
episodes of hematuria. However over the past few days she states that the spotting has increased to significant bleeding with clots. It is not vaginal. She denies any hematochezia or melena. She has been having some dysuria. She has been having
some vague back pain as well and a cramping sensation in her abdomen. She does have a history of kidney stones. This does feel similar. No nausea vomiting. No diarrhea. No fevers or chills.
Phy Exam
Physical Exam
Physical Exam:
GENERAL: in no acute distress
HEENT: normocephalic, extraocular movements intact, moist oral mucosa
NECK: normal inspection
RESPIRATORY: no respiratory distress, clear to auscultation bilaterally
CARDIOVASCULAR: regular rate and rhythm
ABDOMEN/: soft, non-distended, non-tender to palpation, no rebound or guarding
EXTREMITIES: non-tender, no edema/swelling
NEUROLOGIC: awake and alert, moves all extremities
SKIN: warm
Course
Orders/Labs/Results
Orders:
Orders
08/11/24 12:09
Basic Metabolic Panel Urgent
Complete Blood Count/With Diff Urgent
Urinalysis Reflex To Culture Urgent
Date Specimen was Collected: 08/11/24
Time Specimen was Collected: 12:08
Urine Microscopic Reflex Cult Urgent
Urine Culture Urgent
ANGEL Source: U
Specimen Description:
Date Specimen was Collected: 08/11/24
Time Specimen was Collected: 12:08
08/11/24 13:33
CT Abd/pel Without Iv Or Oral Urgent
Comment:
Reason For Exam: hematuria
Abnormal Lab Results
08/11/24
12:09
Hgb 11.9 L g/dL
(12.0-16.0)
MCH 25.8 L pg
(27.0-31.0)
MCHC 31.5 L g/dL
(33.0-37.0)
RDW 16.0 H %
(11.5-14.5)
MPV 10.8 H fL
(7.4-10.4)
Absolute Neuts (auto) 6.6 H 10^3/uL
(1.4-6.5)
Absolute Lymphs (auto) 1.0 L 10^3/uL
(1.2-3.4)
Neutrophils % 80.2 H %
(42.2-75.2)
Lymphocytes % 12.4 L %
(20.5-51.1)
Chloride 96 L mmol/L
(98-107)
BUN 56 H mg/dl
(7-17)
Creatinine 1.3 H mg/dL
(0.6-1.0)
Glucose 142 H mg/dl
(70-99)
Calcium 11.5 H mg/dl
(8.4-10.2)
Ur Occult Blood Reflex 4+ A
(Negative)
Leukocyte Esterase Rfl 3+ A
(Negative)
Urine RBC >100 A /HPF
(0-2)
Urine WBC (Reflex) 11-15 A /HPF
(0-5)
Urine Albumin (Reflex) 3+ A
(Neg - Trace)
08/11/24 12:09
08/11/24 12:09
Vital Signs
Initial and Last Documented VS:
Initial Vital Signs
Temp Pulse Resp BP Pulse Ox
98.2 F 101 16 160/83 98
08/11/24 10:38 08/11/24 10:38 08/11/24 10:38 08/11/24 10:38 08/11/24 10:38
Last Documented Vital Signs
Temp Pulse Resp BP Pulse Ox
98.2 F 99 16 119/82 92
08/11/24 10:38 08/11/24 15:30 08/11/24 10:38 08/11/24 15:00 08/11/24 15:30
MDM/Problems Addressed
Differential Diagnosis Includes:
Patient is a 79-year-old woman presenting to the emergency department with dysuria and hematuria for the past few days. She has been passing clots. Vitals unremarkable and exam is reassuring. Differential is broad but consists of kidney stone
versus UTI. Considered aortic pathology though less likely as her blood pressure is stable. Will check blood work urine and CT scan. I did offer pain control however patient declined at this time.
*Critical Care Note
Total Time (30-74mins, 75-104mins- exclusive of procedures): Not Applicable
Update Note
Update Note:
Blood work is unremarkable. Her urine does show significant blood. CT scan per my interpretation with large right-sided kidney stone. Per the official read it is a 7.5 mm at the right UPJ with no hydronephrosis. I did discuss with urology to see
if patient could be suitable for outpatient versus admission however after discussion with patient patient cannot hold her Eliquis due to ' tacky aorta' and it is not just the A-fib. She also states that given her complicated history she will have
difficulty with outpatient follow-up. Given the social circumstances as well as a blood thinner I did recommend that she should be admitted. Patient does agree. I did update urology who recommended n.p.o. after midnight for possible surg but they
need to know why they cannot hold her Eliquis. I did relay this information to the hospitalist who accepted patient to their service.
ED Attending Note
-
Portions of this chart may have been created with voice recognition software.� Occasional wrong word or��sound alike� substitutions may have occurred due to the inherent limitations of voice recognition software.
Discharge Plan
Departure
Patient Disposition: Admit
Date of Disposition: 08/11/24
Time of Disposition: 15:50
Presentation/result/management discussed w/ accepting MD/DO: Hospitalist
Discharge Problem:
Calculus, ureter
Prescriptions:
No Action
ProAir RespiClick 90 MCG aerosol powdr breath activated
90 mcg IH R Q6HPRN PRN (Reason: asthma)
budesonide 0.5 mg/2 mL Suspension For Nebulization
0.5 mg INHALATION R BIDPRN PRN (Reason: sob)
sodium chloride 0.65 % Aerosol,[place]
1 spray INTRANASAL TIDPRN PRN (Reason: dryness)
Soothe XP 1-4.5 % Drops
1 drp ophthalmic (eye) TIDPRN PRN (Reason: both eyes)
spironolactone 25 mg Tablet
25 mg PO DAILY Qty: 30 0RF
magnesium oxide 500 mg magnesium Tablet
500 mg PO DAILY Qty: 30 0RF
cyanocobalamin (vitamin B-12) [Vitamin B-12] 1,000 mcg Tablet
1,000 mcg PO DAILY Qty: 0 0RF
pantoprazole 40 mg Tablet,Delayed Release (Dr/Ec)
40 mg PO DAILY Qty: 30 0RF
bumetanide 1 mg tablet
1 mg PO DAILY Qty: 30 0RF
losartan 50 MG tablet
50 mg PO DAILY Qty: 0 0RF
metformin 500 MG tablet
500 mg PO BID@0800,1700 Qty: 0 0RF
ipratropium-albuterol 0.5 mg-3 mg(2.5 mg base)/3 mL Solution For Nebulization
3 ml INHALATION R BID Qty: 0 0RF
cetirizine 10 MG tablet
10 mg PO DAILY Qty: 0 0RF
atorvastatin 10 MG tablet
10 mg PO QPM 30 Days Qty: 30 0RF
diltiazem HCl 240 mg Capsule,Extended Release 24hr
240 mg PO TID Qty: 0 0RF
travoprost 1 DROP drops
1 drp BOTH EYES HS Qty: 0 0RF
levothyroxine 100 MCG tablet
100 mcg PO DAILY AT 0700 Qty: 0 0RF
Citrucel 500 mg Tablet
500 mg PO QPM Qty: 0 0RF
triamcinolone acetonide [Nasacort] 55 mcg Aerosol,[place]
1 spray INTRANASAL DAILY Qty: 0 0RF
docusate sodium 100 mg Capsule
100 mg PO BID Qty: 0 0RF
montelukast 10 mg Tablet
10 mg PO QPM Qty: 0 0RF
cholecalciferol (vitamin D3) 1,000 UNITS tablet
1,000 unit PO Q48H Qty: 0 0RF
Januvia 100 MG tablet
100 mg PO DAILY Qty: 0 0RF
mesalamine 1.2 gram Tablet,Delayed Release (Dr/Ec)
2.4 g PO DAILY Qty: 0 0RF
Eliquis 5 mg Tablet
5 mg PO BID Qty: 0 0RF
ipratropium bromide 0.02 % Solution
0.5 mg inhalation R BID Qty: 62.5 0RF
Referrals:
Andreas Lake MD [Family Provider] -
Interventions
Interventions:
*Risk Screen - Suicide Last Done: 08/11/24 10:38
*General Assessment Last Done: 08/11/24 11:53
*Neglect/Abuse Screening Last Done: 08/11/24 10:38
*ED COVID-19 Vaccine History Last Done: 08/11/24 11:53
ED-Female Genitourinary Assessment Last Done: 08/11/24 11:53
Discharge Date and Time
Print Language: HUNGARIAN
[2024-08-11 12:22] LABS: % Basophils 0.5 % (0-2); % Eosinophils 0.7 % (0-6); % Immature Granulocytes 0.4 % (0-0.5); % Lymphocytes 12.4 % (20.5-51.1); % Monocytes 5.8 % (1.7-9.3); % Neutrophils 80.2 % (42.2-75.2); Absolute Eosinophils 0.1 10^3/uL (0-0.7); Absolute Monocytes 0.5 10^3/uL (0.1-0.6); Absolute Neutrophils 6.6 10^3/uL (1.4-6.5); Hematocrit 37.8 % (37.0-47.0); Hemoglobin 11.9 g/dL (12.0-16.0); Mean Corp Hgb Conc. 31.5 g/dL (33.0-37.0); Mean Corpuscular Hgb 25.8 pg (27.0-31.0); Mean Platelet Volume 10.8 fL (7.4-10.4); Nucleated Red Blood Cells % 0 %; Platelet Count 294 10^3/uL (130-400); Red Blood Cell Count 4.61 10^6/uL (4.20-5.40); White Blood Cell Count 8.2 10^3/uL (4.8-10.8)
[2024-08-11 12:26] LABS: Urine Albumin 3+ (Neg - Trace); Urine Bilirubin Negative (Negative); Urine Character Cloudy (Clear); Urine Color Red; Urine Glucose Negative (Negative); Urine Ketone Negative (Negative); Urine Leukocyte 3+ (Negative); Urine Nitrite Negative (Negative); Urine Occult Blood 4+ (Negative); Urine Urobilinogen Negative (Neg - 1+); Urine pH 6.5 (5.0-9.0)
[2024-08-11 12:38] LABS: Urine Amorphous Seen
[2024-08-11 12:39] LABS: Urine Red Blood Cell >100 /HPF (0-2)
[2024-08-11 12:42] LABS: Blood Urea Nitrogen 56 mg/dl (7-17); Calcium 11.5 mg/dl (8.4-10.2); Carbon Dioxide 29 mmol/L (22-30); Chloride 96 mmol/L (98-107); Estimated Creatinine Clearance 44 ml/min; Glucose 142 mg/dl (70-99); Potassium 4.6 mmol/L (3.5-5.1); Sodium 136 mmol/L (135-145); eGFR 42.09
--- NOTE | 2024-08-11 16:26 | HPS.HSE ---
Family Physician
-
Family Physician: Andreas Lake
Chief Complaint
-
Left lower quadrant abdominal pain, hematuria with clots from voiding
History of Present Illness
79-year-old female states over the past few days she has had spotting that is increased to significant bleeding with clots when voiding. She is on Eliquis for A-fib and states initially when she started that medication she had episodes of
hematuria. She has also been reporting some dysuria as well as vague back pain and cramping sensation in her lower abdomen. She also complains of left-sided abdominal pain near the sigmoid area however she has the same tenderness on the right
lower side also. She does have history of kidney stones and ovarian cyst. In the ER she was noted to have a 7.5 mm stone at the right UPJ with no hydronephrosis.She denies headache, sore throat, chest pain, palpitations, cough, shortness of
breath, nausea, vomiting, diarrhea, rash. She has past medical history of paroxysmal A-fib on Eliquis, chronic heart failure, moderate aortic stenosis, hypercapnic respiratory failure, pneumonia, HTN, DM2, asthma, vitamin B12 deficiency,
hypothyroidism, hypercalcium secondary to overuse of Tums, vitamin D deficiency sleep apnea uses CPAP with 3 L oxygen, HLD, diverticulosis ,Hx multiple antibiotic allergies was made aware in July to follow-up with vending machine refiller to test for true
allergies for future issues, CKD 3B new since July 2024, glaucoma, sjrogens syndrome, chronic ambulatory dysfunction wheelchair-bound, known pulmonary nodule follows with outpatient pulmonology
Medical History
Past Medical History
Past Medical History: Reports Other
Additional Past Medical History:
Lymphedema
Right lower lobe cellulitis
Peripheral edema
Venous stasis
Venous insufficiency
Obstructive sleep apnea
GERD
Type 2 diabetes
Hypertension
Asthma
Ulcerative colitis
Hypothyroidism
Psoriasis
Hyperlipidemia
Diverticulosis
Irritable bowel syndrome
Blood,
Autoimmune disease
Rosacea
Fibrocystic breast
A-fib
Past Surgical History: Reports Other
Additional Past Surgical History:
DNC
Kidney stone removed
Social History
Tobacco: Former Smoker
Alcohol: None
Drug: None
Personal:
Living: With Family
Family History
Family History: Not pertinent
Allergies / Home Medications
Allergies reflects when Allergies were last updated in [facility].
Home Medications with original date entered in [facility]
Allergy/Medication List:
Allergies
Allergy/AdvReac Type Severity Reaction Status Date / Time
alendronate sodium Allergy esophagus Verified 08/11/24 10:40
[From Fosamax] spasms
cephalexin [From Keflex] Allergy throat Verified 08/11/24 10:40
closed
clarithromycin [From Biaxin] Allergy Hives Verified 08/11/24 10:40
erythromycin base Allergy Rash, Verified 08/11/24 10:40
diarrhea
fentanyl Allergy difficulty Verified 08/11/24 10:40
awakening
from
surgery
fish oil Allergy Unknown Verified 08/11/24 10:40
house dust Allergy sneeze Verified 08/11/24 10:40
hyoscyamine Allergy throat Verified 08/11/24 10:40
tightening
influenza virus vaccine, Allergy Unknown Verified 08/11/24 10:40
specific
Iodinated Contrast Media Allergy Unknown Verified 08/11/24 17:26
latex Allergy Rash Verified 08/11/24 10:40
levalbuterol [From Xopenex] Allergy 'bee sting Verified 08/11/24 10:40
sensation
all over'
levofloxacin [From Levaquin] Allergy difficulty Verified 08/11/24 10:40
breathing
mold Allergy rash/hives/ Verified 08/11/24 10:40
sob
nut - unspecified Allergy Unknown Verified 08/11/24 10:40
Penicillins Allergy Hives Verified 08/11/24 10:40
pneumococcal vaccine Allergy Rash Verified 08/11/24 10:40
shellfish derived Allergy hives/difficulty Verified 08/11/24 10:40
breathing
tetanus and diphtheria Allergy wheezing Verified 08/11/24 10:40
toxoids
vancomycin Allergy Shortness Verified 08/11/24 10:40
of Breath
Home Medications
budesonide 0.5 mg/2 mL suspension for nebulization 0.5 mg inhalation R DAILY 07/01/24
light mineral oil 1 %-mineral oil 4.5 % eye drops (Soothe XP) 1 drp ophthalmic (eye) DAILYPRN PRN both eyes 07/01/24
sodium chloride 0.65 % nasal spray aerosol 1 spray intranasal TIDPRN PRN dryness 07/01/24
apixaban 5 mg tablet (Eliquis) 5 mg PO BID Blood clot prevention/tx #0 tabs 07/14/24
atorvastatin 10 mg tablet 10 mg PO QPM High cholesterol 30 days #30 tabs 07/14/24
bumetanide 1 mg tablet 1 mg PO DAILY Fluid retention/Swelling #30 tabs 07/14/24
cetirizine 10 mg tablet 10 mg PO DAILY Allergies #0 tabs 07/14/24
cholecalciferol (vitamin D3) 25 mcg (1,000 unit) tablet 1,000 unit PO Q48H Supplement #0 tabs 07/14/24
cyanocobalamin (vitamin B-12) 1,000 mcg tablet (Vitamin B-12) 1,000 mcg PO DAILY Supplement #0 tabs 07/14/24
diltiazem HCl 240 mg capsule,extended release 24 hr 240 mg PO TID Arrhythmia #0 caps 07/14/24
mesalamine 1.2 gram tablet,delayed release 2.4 g (2 x 1.2 gram) PO DAILY Gastrointestinal issue #0 tabs 07/14/24
montelukast 10 mg tablet 10 mg PO QPM Allergies #0 tabs 07/14/24
sitagliptin phosphate 100 mg tablet (Januvia) 100 mg PO DAILY Diabetes #0 tabs 07/14/24
acetaminophen 650 mg tablet,extended release 650 mg PO DAILYPRN PRN mild pain 08/11/24
docusate sodium 100 mg capsule 100 mg PO DAILYPRN PRN constipation 08/11/24
levothyroxine 100 mcg tablet 100 mcg PO DAILY Thyroid 08/11/24
losartan 100 mg tablet 100 mg PO DAILY 08/11/24
magnesium oxide 400 mg PO DAILY 08/11/24
metformin 500 mg tablet 500 mg PO BID Diabetes 08/11/24
methylcellulose (laxative) 500 mg tablet (Citrucel) 250 mg PO HSPRN PRN fiber suppliment 08/11/24
pantoprazole 40 mg tablet,delayed release 40 mg PO DAILY Gastrointestinal issue 08/11/24
spironolactone 12.5 mg PO DAILY 08/11/24
travoprost 0.004 % eye drops 1 drp BOTH EYES HS 08/11/24
triamcinolone acetonide 0.1 % topical cream 1 applic topical DAILY both lower legs 08/11/24
triamcinolone acetonide 55 mcg nasal spray aerosol (Nasacort) 1 spray intranasal HS Congestion 08/11/24
vitamin A and D 1 applic topical DAILY b/l buttock sore 08/11/24
Review of Systems
-
History Source: Patient and Family ( at bedside)
A 12 point ROS was completed and negative except as noted: Yes
Constitutional: Denies Fever or Chills
Respiratory: Denies Cough or Trouble Breathing
Cardiac: Denies Chest Pain, Diaphoresis, Palpitations or Syncope
Abdomen/GI: Reports Abdominal Pain (Left lower quadrant, lower back); Denies Nausea, Vomiting, Diarrhea or Constipated
: Reports Dysuria and Bleeding (Hematuria with clots); Denies Frequency, Flank Pain or Incontinence
Musculoskeletal: Reports Joint Pain (Chronic bilateral shoulders can only lift arms to shoulder level, chronic knee pain, PVD lower extremities with flaking brown scales)
Skin: Denies Itching or Rash
Neurological: Denies Dizzy, Headache or Weakness
Endocrine: Reports No Symptoms
Hematologic/Lymphatic: Reports No Symptoms
Psych: Reports Anxiety (About urological procedure tomorrow however she has had this procedure in the past)
Physical Exam
Vital Signs
Vital Signs
Temp Pulse Resp BP Pulse Ox
98.2 F 110 16 131/53 92
08/11/24 10:38 08/11/24 16:00 08/11/24 10:38 08/11/24 16:00 08/11/24 16:00
Physical Exam
General: Conversant and Morbidly Obese; No Fever or Chills
HEENT: NormoCephalic, Anicteric, PERRLA, [place] Conjunctivae, No Ptosis and Other (Mallampati score 4)
Respiratory: Clear; No Wheezes, Rales or Rhonchi
Cardiac: S1/S2, Irregular Rhythm (A-fib), Murmur (2/6 systolic) and Peripheral Edema (Trace bilateral); No Rub
GI: Soft, Non Distended, Normal Bowel Sounds and Tender (Both left and lower right quadrants of abdomen)
Rectal: Deferred by Provider
Genito-urinary: Other (Patient reports hematuria with clots)
Musculoskeletal: No Clubbing, No Cyanosis, Edema, Left Lower Extremity (Trace nonpitting,PVD lower extremities with flaking brown scales), Edema, Right Lower Extremity (Trace nonpitting,PVD lower extremities with flaking brown scales) and Other
(Chronic bilateral shoulders can only lift arms to shoulder level, chronic knee pain, ); No Edema, Left Upper Extremity or Edema, Right Upper Extremity
Skin: Warm and Dry; No Rash or Jaundice
Neuro: AO x 3, Cranial Nerves Intact, No Sensory Deficits and Other (Can turn self in bed can sit self up); No Slurred Speech, Facial Droop, Tremors or Sedated
Psych: Anxious (About upcoming urological procedure however has had in the past I advised her same approach)
Laboratory Results
-
08/11/24 12:09
03/14/25 12:09
Data Reviewed
-
CT Scan: Report Reviewed by me
Lab Data: Labs Reviewed by me
Impression/Plan
-
Impression/plan:
Admit to telemetry
# Acute hematuria secondary to 7.5 mm right UPJ stone concern for possible infection
-Hold Eliquis due to clots/Hematuria
-Hgb 11.9� Appears baseline
-Will cover with IV Azactam due to concern for possible infection Hx multiple drug allergies
-N.p.o. after midnight per urology for possible surgery will know around 10 AM if not we will have surgery on 08/13/2024
-Consult urology-Dr. Sanchez aware
-IV NSS 60 cc an hour
-Okay per cardiology to hold Eliquis patient's last dose was 08/10/2024 at 21:30 PM
-Due to super morbid obesity, no neck and Mallampati score of 4 patient will be difficult airway patient
CT abdomen pelvis:
1.) 7.5 mm calculus at the right ureteral pelvic junction. No significant right-sided hydronephrosis. No left-sided urinary tract calculi.
2. Couple of pulmonary nodules within the posterior lower lobes measuring up to 6 mm.
3.. Moderately distended gallbladder containing layering hyperdense material, possibly sludge and/or stones.
4. Nonspecific hyperdense/calcified lesion within the left adnexa measuring 2.4 cm.
This could represent a pedunculated/degenerative fibroid with calcified ovarian lesion also a consideration
Recommend follow-up ultrasound
#FAVIAN on CKD 3B
-New development since July 2024 admission likely secondary to diuretics/losartan
-Her losartan was decreased to 50 mg however she had been taking 100 mg
Creat 1.1 appears now her new baseline, GFR 42 <from 51.43 on 07/14/2024
Will follow BMP
-Hold Bumex 1.5 mg daily
-Hold losartan 50 mg daily patient has been off since 08/04/2024 per PCPdue to elevated creatinine
-Hold spironolactone patient has been off since 08/04/2024 per PCPdue to elevated creatinine
#Acute on chronic hypercalcemia
Hypercalcium secondary to overuse of Tums
Calcium 11.5 appears near baseline, recent PTH 88.8 on 07/02/2024 slight high max 85.8
-IV NSS
-Continue vitamin D
-Check calcium level in a.m.
#Paroxysmal A-fib on Eliquis
BP 131/53, HR 110
-Hold Eliquis last dose 08/10/2024 at 2130
-Continue diltiazem 240 mg p.o. 3 times daily with hold parameters (patient takes 530, 1330, 2130)
-Consult [facility] cardiology Dr. John aware
#DM2
Accu-Cheks with SSI, recent A1c 7.04 July 2024 admission
-Hold metformin, Januvia
-Patient was on Ozempic but states went off for unknown reason I suggested speaking with her PCP as there are other multiple GLP-1 medications she can use to lose weight and increase her mobility from wheelchair bound. She however thinks standing
for 1 minute and walking 4 feet will help her lose the weight instead
#Known pulmonary nodules/former smoker 18 years 1/2 pack/day quit 1984
Patient follows with Dr. Burgos
#Chronic heart failure
-I/O, daily weights
Hold Bumex 1.5 mg daily
2D echo 07/04/2024: EF 65 to 70%, hyperdynamic LVSF, moderate AAS peak mean gradients 40/21 mmHg, mild TR
#Moderate aortic stenosis
#Hypercapnic respiratory failure hx-no acute hypercapnia
92% RA serum carbon dioxide 29
# Asthma-no acute exacerbation
Vitamin B12 deficiency
-Continue B12 supplement
#Vitamin D deficiency new since July 2024
-Continue vitamin D supplement
#Hypothyroidism
-Continue levothyroxine 100 mcg p.o. daily
#HLD
-Continue atorvastatin 10 mg every afternoon
#Chronic severe multilevel DDD lumbar spine
#Chronic ambulatory dysfunction -can stand for 1 minute and walk 4 feet only
Has home PT
-Consult PT/OT
#Hx multiple antibiotic allergies was made aware in July to follow-up with vending machine refiller to test for true allergies for future issues
#Sleep apnea-CPAP
-CPAP with 3 L oxygen
#Class III obesity:�BMI 48.1
Affects all aspects of care
Has tried Ozempic unsure why she had to stop
I suggested speaking with her PCP as there are other multiple GLP-1 medications she can use to lose weight and increase her mobility from wheelchair bound. She however thinks standing for 1 minute and walking 4 feet will help her lose the weight
instead
Other PMH:
Glaucoma, continue Travatan
Psoriasis
diverticulosis
DVT prophylaxis
SCDs, hold current Eliquis due to hematuria with clots
Full code
--- NOTE | 2024-08-11 17:01 | W.PN.UPDATE ---
Update Note
Progress Note Update
This note serves as an addendum to the H&P by java designer MARYLIN
Sabina GALE
HPI
79F HX nephrolithiasis, HX Prx AF on Eliquis, chr HFpEF, HTN, DMT2 with recent A1C 7.5 recent renal insufficiency c/w CKD3, hypertension, hyperlipidemia sen at ER:
- pw hematuria and dysuria.
- on Eliquis in the fall she had episodes of hematuria. F/U with [facility] card
- the past few days she states that the spotting has increased to significant bleeding with clots. It is not vaginal.
ROS:
- She denies any hematochezia or melena.
- She has been having some vague back pain as well and a cramping sensation in her abdomen.
- HX kidney stones.
- No nausea vomiting.
- No diarrhea.
- No fevers or chills.
PHX; see above
Vital Signs
Temp Pulse Resp BP Pulse Ox
98.2 F 110 16 131/53 92
08/11/24 10:38 08/11/24 16:00 08/11/24 10:38 08/11/24 16:00 08/11/24 16:00
PE
Gen: no acute distress
HEENT: moist oral mucosa
Neck: supple
Lungs: CTA
Cor: RRR S1 S2
Abdomen: soft benign
DRIVER COURIER: AAO3 , NFND
MS: no edema
Psych:nl affect and mood
Laboratory Tests
07/13/24 07/14/24 08/11/24
06:03 06:17 12:09
WBC 8.2
Hgb 11.0 L 11.9 L
BUN 41 H 56 H
Creatinine 1.1 H 1.3 H
eGFR 51.43 42.09
Urine Color Red
Urine Clarity Cloudy
Leukocyte Esterase Rfl 3+ A
Urine RBC >100 A
Urine WBC (Reflex) 11-[address] AP Without Iv Or Oral
1. 7.5 mm calculus at the right ureteral pelvic junction. No significant right-sided hydronephrosis. No left-sided urinary tract calculi.
2. Couple of pulmonary nodules within the posterior lower lobes measuring up to 6 mm.
3. Moderately distended gallbladder containing layering hyperdense material, possibly sludge and/or stones.
4. Nonspecific hyperdense/calcified lesion within the left adnexa measuring 2.4 cm. This could represent a pedunculated/degenerative fibroid with calcified ovarian lesion also a consideration. Consider follow-up pelvic ultrasound or follow-up CT
to ensure stability.
5. Additional findings above.
07/04/24 TTE
- normal left ventricular function.
- EF 65 to 70%.
- Normal right ventricular size function.
- Moderate aortic stenosis.
- Trivial pericardial effusion.
Last hospitalist admission: DATE OF ADMISSION: 07/01/2024 -DATE OF DISCHARGE: 07/14/2024
DISCHARGE DIAGNOSES:
1. Acute on chronic heart failure.
2. Moderate aortic stenosis.
3. Acute hypercapnic respiratory failure.
4. Pneumonia.
5. Atrial fibrillation.
ASSESSMENT & PLAN
Hematuria and dysuria
POS Rt UPJ 7.5 mm stone (No left-sided urinary tract calculi)
No significant right-sided hydronephrosis.
Somewhat element of FAVIAN suspect obstructive nephropathy vs UTI vs Meds ( Bumex, ARB)
HX nephrolithiasis
HX Multiple antibiotic allergies
- hold eliquis
- UCx
- Empiric IV Aztreonam
- Urology consulted - recommended NPO after midnight for possible procedure and clear with card for holdinf AC
HX Chronic AF
- check EKG
- c/w Cardizem 240mg tid per [facility] summary in Jul 2024
- Last dose of Eliquis last night 08/11/23Wed
- [facility] card consult
Some element of FAVIAN suspect possible obstructive nephropathy
7.5mm stone at right UPJ
NO CT suggestion of hydronephrosis
CKD3 by Cr and eGFR since Jul 2024
- IV NS and observe Cr
- Hold Metformin, Losartan and Bumex
- Trend Cr
HX chronic hypoxic and hypercapnic RF secondary to CHF
HX CROW on CPAP HS
Possible obesity hypoventilation
Morbid Obesity BMI 48
Current HCO3 is 29 ( as hi as 43 on last admission)
- c/w HS CPAP
- Observe POx
- ABG with any AMS
HX chronic HFpEF
Moderate aortic stenosis
- Not in acute HF
- Holding Bumex and ARB due to FAVIAN
Normotensive on admission
Essential HTN
- Holding losartan
- c/w diltiazem 240 mg tid per [facility] summary
Hypothyroidism
- on Synthroid 100 mcg daily
DMT2
- last A1c 7.4
- on [employer] Januvia 100 mg daily
- Holding metformin
DVT Px: Holding Eliquis thus SCD
Code: Full code
IP TLM
[2024-08-11] MEDS: LIPITOR 10 MG PO (18:25)
[2024-08-11] MEDS: VITAMIN D3 (cholecalciferol) 25 MCG PO (18:25)
[2024-08-11] MEDS: AZACTAM 1000 MG IV (18:25)
[2024-08-11] MEDS: SINGULAIR 10 MG PO (18:26)
[2024-08-11] MEDS: STERILE WATER FOR INJECTION 10 ML IV (18:28)
[2024-08-11 18:33] LABS: Glucose - Point of Care 115 mg/dl (70-99)
--- NOTE | 2024-08-11 18:36 | CON.CAR ---
Consultation
Consultation Request
Date/Time Consultation Requested: August 11, 2024
Date/Time Consultation Performed: August 11, 2024
Requesting Provider: Hospitalist
Performing Provider: Alvaro
Reason for Consultation: Hematuria
Medical History
-
Chief Complaint: Hematuria
History of Present Illness:
Cici is a 79-year-old female patient of Dr. Joan Garcia with history of atrial fibrillation more recently over the last 6 weeks seemingly persistent although on monitor in December had a 8.4% AF burden. Over the last 2 weeks she has noted
intermittent but progressive hematuria including clots and is diagnosed with ureteral calculi. Discussed with Dr. Sanchez timing of surgery as he asked for preoperative clearance. We discussed that she could withhold or anticoagulation and he is
currently planning either Wednesday or Wednesday operation. She is currently rate controlled in AF at 101 bpm. She carries a long medical history with a myriad of problems including mild to moderate aortic stenosis, hypertension, hypercholesterolemia,
preserved ejection fraction, venous insufficiency, severe CROW, diabetes elevated BMI and chronic lower extremity edema changes.
Past Medical History
Past Medical History: Arrhythmias and CHF
Social History
Tobacco: Non-Smoker
Alcohol: None
Drug: None
Personal:
Living: With Family
Employment: Not Employed
Family History
Family History: Reviewed & Not Pertinent
Allergies / Home Medications
Allergy/AdvReac Type Severity Reaction Status Date / Time
alendronate sodium Allergy esophagus Verified 08/11/24 10:40
[From Fosamax] spasms
cephalexin [From Keflex] Allergy throat Verified 08/11/24 10:40
closed
clarithromycin [From Biaxin] Allergy Hives Verified 08/11/24 10:40
erythromycin base Allergy Rash, Verified 08/11/24 10:40
diarrhea
fentanyl Allergy difficulty Verified 08/11/24 10:40
awakening
from
surgery
fish oil Allergy Unknown Verified 08/11/24 10:40
house dust Allergy sneeze Verified 08/11/24 10:40
hyoscyamine Allergy throat Verified 08/11/24 10:40
tightening
influenza virus vaccine, Allergy Unknown Verified 08/11/24 10:40
specific
Iodinated Contrast Media Allergy Unknown Verified 08/11/24 17:26
latex Allergy Rash Verified 08/11/24 10:40
levalbuterol [From Xopenex] Allergy 'bee sting Verified 08/11/24 10:40
sensation
all over'
levofloxacin [From Levaquin] Allergy difficulty Verified 08/11/24 10:40
breathing
mold Allergy rash/hives/ Verified 08/11/24 10:40
sob
nut - unspecified Allergy Unknown Verified 08/11/24 10:40
Penicillins Allergy Hives Verified 08/11/24 10:40
pneumococcal vaccine Allergy Rash Verified 08/11/24 10:40
shellfish derived Allergy hives/difficulty Verified 08/11/24 10:40
breathing
tetanus and diphtheria Allergy wheezing Verified 08/11/24 10:40
toxoids
vancomycin Allergy Shortness Verified 08/11/24 10:40
of Breath
�Medication �Instructions �Recorded �Confirmed �Type
budesonide 0.5 mg/2 mL suspension 0.5 mg inhalation R DAILY 07/01/24 08/11/24 History
for nebulization
light mineral oil 1 %-mineral oil 1 drp ophthalmic (eye) DAILYPRN 07/01/24 08/11/24 History
4.5 % eye drops (Soothe XP) PRN both eyes
sodium chloride 0.65 % nasal spray 1 spray intranasal TIDPRN PRN 07/01/24 08/11/24 History
aerosol dryness
apixaban 5 mg tablet (Eliquis) 5 mg PO BID Blood clot 07/14/24 08/11/24 Rx
prevention/tx #0 tabs
atorvastatin 10 mg tablet 10 mg PO QPM High cholesterol 30 07/14/24 08/11/24 Rx
days #30 tabs
bumetanide 1 mg tablet 1 mg PO DAILY Fluid 07/14/24 08/11/24 Rx
retention/Swelling #30 tabs
cetirizine 10 mg tablet 10 mg PO DAILY Allergies #0 tabs 07/14/24 08/11/24 Rx
cholecalciferol (vitamin D3) 25 1,000 unit PO Q48H Supplement #0 07/14/24 08/11/24 Rx
mcg (1,000 unit) tablet tabs
cyanocobalamin (vitamin B-12) 1,000 mcg PO DAILY Supplement #0 07/14/24 08/11/24 Rx
1,000 mcg tablet (Vitamin B-12) tabs
diltiazem HCl 240 mg 240 mg PO TID Arrhythmia #0 caps 07/14/24 08/11/24 Rx
capsule,extended release 24 hr
mesalamine 1.2 gram tablet,delayed 2.4 g (2 x 1.2 gram) PO DAILY 07/14/24 08/11/24 Rx
release Gastrointestinal issue #0 tabs
montelukast 10 mg tablet 10 mg PO QPM Allergies #0 tabs 07/14/24 08/11/24 Rx
sitagliptin phosphate 100 mg 100 mg PO DAILY Diabetes #0 tabs 07/14/24 08/11/24 Rx
tablet (Januvia)
acetaminophen 650 mg 650 mg PO DAILYPRN PRN mild pain 08/11/24 08/11/24 History
tablet,extended release
docusate sodium 100 mg capsule 100 mg PO DAILYPRN PRN constipation 08/11/24 08/11/24 History
levothyroxine 100 mcg tablet 100 mcg PO DAILY Thyroid 08/11/24 08/11/24 History
losartan 100 mg tablet 100 mg PO DAILY 08/11/24 08/11/24 History
magnesium oxide 400 mg PO DAILY 08/11/24 08/11/24 History
metformin 500 mg tablet 500 mg PO BID Diabetes 08/11/24 08/11/24 History
methylcellulose (laxative) 500 mg 250 mg PO HSPRN PRN fiber 08/11/24 08/11/24 History
tablet (Citrucel) suppliment
pantoprazole 40 mg tablet,delayed 40 mg PO DAILY Gastrointestinal 08/11/24 08/11/24 History
release issue
spironolactone 12.5 mg PO DAILY 08/11/24 08/11/24 History
travoprost 0.004 % eye drops 1 drp BOTH EYES HS 08/11/24 08/11/24 History
triamcinolone acetonide 0.1 % 1 applic topical DAILY both lower 08/11/24 08/11/24 History
topical cream legs
triamcinolone acetonide 55 mcg 1 spray intranasal HS Congestion 08/11/24 08/11/24 History
nasal spray aerosol (Nasacort)
vitamin A and D 1 applic topical DAILY b/l buttock 08/11/24 08/11/24 History
sore
Review of Systems
-
All other systems: Negative unless noted
Cardiac: No Symptoms
: Bleeding
Physical Exam
Vital Signs
Temp Pulse Resp BP Pulse Ox
98.2 F 109 16 103/83 94
08/11/24 10:38 08/11/24 17:45 08/11/24 10:38 08/11/24 17:00 08/11/24 17:45
Lab Results
08/11/24 12:09
08/11/24 12:09
Physical Exam
General: Well Nourished
HEENT: Normocephalic
Respiratory: Clear
Cardiac: Irregular Rhythm and Murmur (2 out of 6 midsystolic murmur without blunting of S2 examining to mild to moderate AAS which is consistent with prior echocardiogram)
Breast: Deferred by me
GI: Soft, Non Tender and Non Distended
Rectal: Deferred by Provider
Genito-urinary: Bloody Urine
Musculoskeletal: No Clubbing and No Cyanosis
Skin: Warm and Dry
Neuro: Awake, Alert and Oriented
Hematologic/Lymphatic: No Lymphadenopathy
Psych: Calm
Impression / Plan
-
Impression:
Ureteral calculi
Hematuria
Elevated BMI
Persistent atrial fibrillation
Severe CROW
Mild to moderate aortic stenosis
Hypertension
Hypercholesterolemia
Heart failure with preserved ejection fraction
Venous insufficiency
Type 2 diabetes mellitus
Depression
Multiple medical allergies
Recommendations:
She can proceed to ureteral stenting and removal of calculi at low to moderate cardiovascular risk. She examines to mild to moderate aortic stenosis, she is rate controlled AF, she does not examine to overt or significant heart failure and as such
can proceed without further testing. Dr. Sanchez is considering a Wednesday operative date.
-Can withhold oral anticoagulation today and tomorrow preoperatively and resume as soon as safe and recommended as per urology
-Follow hemoglobin
-Can consider echocardiogram during hospitalization or can be done as an outpatient depending on timing of discharge
-Reasonable to continue Cardizem as ordered although the dosing is at maximum that I would offer and could consider additional rate controlling agents if her heart rates are elevated
-We will follow with you post procedure
-Please check postoperative ECG
Data Reviewed
-
EKG: Tracing Personally Visualized and interpreted
CT Scan: Image Personally Visualized and interpreted
Medical Tests (Nuc Med, Echo etc): Report Reviewed by me
Labs: Labs Reviewed by me
Old Records: Reviewed
--- NOTE | 2024-08-11 18:57 | W.PN.URO.CBU ---
Today's Communication / Plan
-
op room wednesday am bit if avaiable sat will move up npo tonight and will decide abouit tommorow by 10 am
Assessment / Plan
-
impassable stone but high risk pt will hold anticoagulants cardiology input appreciated pt for u/ l/ s this weekend
Diagnosis
-
Date of Service: August 11, 2024
-
Patient Diagnosis:rt upj stone 7 mm with mild hydro hematuria on eliquis no fevr chills
Post Op Day:
Subjective
-
asx but impasaable stone
Objective
-
Vital Signs
Temp Pulse Resp BP Pulse Ox
98.2 F 100 16 119/78 91
08/11/24 10:38 08/11/24 18:30 08/11/24 10:38 08/11/24 18:00 08/11/24 18:30
Laboratory Results
08/11/24 12:09
08/11/24 12:09
Review of Systems
-
: Flank Pain and Bleeding
Physical Exam
-
General - well developed, well nourished, no acute distress bed bound afib thick neck
Chest - clear bilaterally
Abdomen - soft, non-tender, positive bowel sounds, no CVAT, no incisional pain or distention
Genitalia - normal
Rectal - normal
Skin - warm & dry with no rash
Neuro - AOx3, no motor deficits
Extremities - no clubbing, no cyanosis, no edema
Incision - clean, dry
Dressing - clean, dry, intact
Care Review
Data Reviewed
Discussed with: Cardiology, Hospitalist, Nursing and Family
CT Scan: Image Pers Reviewed
[2024-08-11] MEDS: CARDIZEM CD 240 MG PO (21:35)
[2024-08-11] MEDS: XALATAN OPHTHALMIC SOLUTION 1 DROP BOTH EYES (21:35)
[2024-08-11] MEDS: NSS 1000 IV (21:35)
[2024-08-11 21:36] LABS: Glucose - Point of Care 128 mg/dl (70-99)
[2024-08-12] VITALS (14 sets, daily range): BP systolic 100–151; BP diastolic 57–120; BMI 47.0
[2024-08-12] MEDS: AZACTAM 1000 MG IV ×3 (03:21→16:48)
[2024-08-12] MEDS: STERILE WATER FOR INJECTION 10 ML IV ×3 (03:21→16:47)
[2024-08-12] MEDS: SYNTHROID PO (03:25)
[2024-08-12 06:26] LABS: % Basophils 0.3 % (0-2); % Eosinophils 1.4 % (0-6); % Immature Granulocytes 0.3 % (0-0.5); % Lymphocytes 14.9 % (20.5-51.1); % Monocytes 7.3 % (1.7-9.3); % Neutrophils 75.8 % (42.2-75.2); Absolute Eosinophils 0.1 10^3/uL (0-0.7); Absolute Monocytes 0.5 10^3/uL (0.1-0.6); Hematocrit 35.8 % (37.0-47.0); Hemoglobin 11.5 g/dL (12.0-16.0); Mean Corp Hgb Conc. 32.1 g/dL (33.0-37.0); Mean Platelet Volume 11.1 fL (7.4-10.4); Nucleated Red Blood Cells % 0 %; Platelet Count 284 10^3/uL (130-400); Red Blood Cell Count 4.42 10^6/uL (4.20-5.40); Red Cell Dist. Width 15.9 % (11.5-14.5); White Blood Cell Count 6.6 10^3/uL (4.8-10.8)
[2024-08-12 06:54] LABS: ALT (SGPT) 15 U/L (0-35); AST (SGOT) 18 U/L (14-36); Alkaline Phosphatase 225 U/L (38-126); Blood Urea Nitrogen 37 mg/dl (7-17); Carbon Dioxide 28 mmol/L (22-30); Chloride 99 mmol/L (98-107); Estimated Creatinine Clearance 62 ml/min; Glucose 126 mg/dl (70-99); Potassium 4.1 mmol/L (3.5-5.1); Sodium 137 mmol/L (135-145); Total Bilirubin 1.2 mg/dl (0.2-1.3); Total Protein 7.2 g/dl (6.3-8.2); eGFR > 60.00
[2024-08-12 06:57] LABS: Glucose - Point of Care 119 mg/dl (70-99)
[2024-08-12] MEDS: PULMICORT 0.5 MG INH (07:24)
[2024-08-12] MEDS: NOVOLOG FLEXPEN-LOW RESISTANCE SC (08:06)
[2024-08-12] MEDS: TRIAMCINOLONE ACETONIDE 0.1% CREAM 1 APPLIC TOPICAL (08:06)
[2024-08-12] MEDS: CARDIZEM CD 240 MG PO ×3 (08:06→21:50)
--- NOTE | 2024-08-12 08:53 | W.PN.CARDCBS ---
Today's Communication / Plan
-
resume DOAC when hemostasis achieved post op
Impression / Plan
-
Impression:
Ureteral calculi
Hematuria
Elevated BMI
Persistent atrial fibrillation
Severe CROW
Mild to moderate aortic stenosis
Hypertension
Hypercholesterolemia
Heart failure with preserved ejection fraction
Venous insufficiency
Type 2 diabetes mellitus
Depression
Multiple medical allergies
Echocardiogram July 04, 2024 finds hyperdynamic left ventricular systolic function ejection fraction 65 to 70%. Moderate aortic stenosis with peak and mean gradients of 40 and 21 with a calculated aortic valve area of 1 cm2. Trivial pericardial
effusion and no significant valvular disease overall unchanged from prior echocardiogram
Recommendations:
She is planned for the OR sometime this weekend to manage impassable stone.
She can proceed to ureteral stenting and removal of calculi at low to moderate cardiovascular risk.
While she does have history of heart failure with preserved ejection fraction as well as mild to moderate aortic stenosis and persistent atrial fibrillation, see seems to be rather stable from a cardiovascular standpoint and as such can proceed
without further testing.
Continue to withhold oral anticoagulation and resume postop once hemostasis assured, has been on Eliquis 5 mg twice daily
Continue diltiazem 240 mg p.o. 3 times daily for rate control as ordered-
We will follow with you post procedure
Please check postoperative ECG
Progress Note - [employer]
Subjective
Date of Service: August 12, 2024
No cardiac complaints. No CP, SOB or palps. She is constipated.
Objective
Labs:
08/12/24 05:49
08/12/24 05:49
Labs
Hgb 11.5 g/dL (12.0-16.0) L 08/12/24 05:49
Hct 35.8 % (37.0-47.0) L 08/12/24 05:49
Plt Count 284 10^3/uL (130-400) 08/12/24 05:49
Sodium 137 mmol/L (135-145) 08/12/24 05:49
Potassium 4.1 mmol/L (3.5-5.1) 08/12/24 05:49
BUN 37 mg/dl (7-17) H 08/12/24 05:49
Creatinine 0.9 mg/dL (0.6-1.0) 08/12/24 05:49
Glucose 126 mg/dl (70-99) H 08/12/24 05:49
Vital Signs and I&O:
Vital Signs
Temp Pulse Resp BP Pulse Ox
97.9 F 84 16 151/81 94
08/12/24 07:15 08/12/24 08:06 08/12/24 07:39 08/12/24 08:06 08/12/24 07:39
Vital Signs
Temp Pulse Resp BP Pulse Ox
97.9 F 84 16 151/81 94
08/12/24 07:15 08/12/24 08:06 08/12/24 07:39 08/12/24 08:06 08/12/24 07:39
Physical Exam
Physical Exam
sitting on camode
Irreg/irreg, Nl S1 nd S2, no S3 or s4, 1/6 AHSM, no rubs
CTA B/L
--- NOTE | 2024-08-12 10:01 | W.PN.URO.CBU ---
Today's Communication / Plan
-
to op room tof=]day
Assessment / Plan
-
impassable stone but high risk pt will hold anticoagulants cardiology input appreciated pt for u/ l/ s this weekend
Diagnosis
-
Date of Service: August 12, 2024
-
Patient Diagnosis:
Post Op Day:
Patient Diagnosis:rt upj stone 7 mm with mild hydro hematuria on eliquis no fevr chills
Post Op Day:
Subjective
-
min colic
Objective
-
Vital Signs
Temp Pulse Resp BP Pulse Ox
97.9 F 84 16 151/81 94
08/12/24 07:15 08/12/24 08:06 08/12/24 07:39 08/12/24 08:06 08/12/24 07:39
Intake and Output
08/11/24 08/12/24 08/13/24
06:59 06:59 06:59
Other:
Number of approximated MODERATE 4
amounts of urine
Laboratory Results
08/12/24 05:49
08/12/24 05:49
Review of Systems
-
Abdomen/GI: Abdominal Pain (llq as yestarday)
: Flank Pain
Physical Exam
-
General - well developed, well nourished, no acute distress
Chest - clear bilaterally
Abdomen - soft, non-tender, positive bowel sounds, no CVAT, no incisional pain or distention
Genitalia - normal
Rectal - normal
Skin - warm & dry with no rash
Neuro - AOx3, no motor deficits
Extremities - no clubbing, no cyanosis, no edema
Incision - clean, dry
Dressing - clean, dry, intact
Care Review
Data Reviewed
Discussed with: Hospitalist and Nursing
CT Scan: Image Pers Reviewed
--- NOTE | 2024-08-12 10:08 | CM ---
CM following re: discharge planning.
Reviewed pt's chart, met with pt and pt's at bedside.
Pt is a 79 year old female, admitted with primary dx of Acute hematuria secondary to 7.5 mm right UPJ stone concern for possible infection.
Pt reports she lives with [address], no steps to enter, there is a ramp, has supportive daughter and a stepson. Pt reports she ambulates with a walker, mostly uses a wheelchair, scooter, has transport chair, C-Pap machine and home Oxygen with 10 L
O2 concentrator. Pt reports she is currently with [facility]. Pt stated she has 4 hours of caregiver services per day 7 days per week provided by [facility]. Pt made a strong request to return back home at
discharge with resumptions of [facility] at home, resumptions of caregiver services and family support. Pt stated she will need/c van to transport home at discharge.
PCP: [facility]
Pharmacy: [facility]
D/C plan: home with resumptions of [facility] at home, resumptions of caregiver services and family support..
CM will follow with discharge plan updates as hospitalization progresses
[2024-08-12] MEDS: VITAMIN B-12 PO (10:10)
[2024-08-12] MEDS: MAG-TAB SR PO (10:10)
[2024-08-12] MEDS: PROTONIX PO (10:10)
[2024-08-12] MEDS: GLYCERIN SUPPOSITORY ADULT 1 SUPP RECTAL (10:41)
[2024-08-12 11:59] LABS: Glucose - Point of Care 158 mg/dl (70-99)
[2024-08-12] MEDS: NOVOLOG FLEXPEN-LOW RESISTANCE 1 UNITS SC ×2 (12:11→17:29)
--- NOTE | 2024-08-12 15:11 | W.PN.HOSP.TC ---
Today's Communication/Plan
-
Assessment / Plan
Assessment / Plan
Gen-AAOx3, NAD
HEENT-NC, AT, anicteric, clear oral mm
Neck-supple
CV-reg, no M, +S1/S2
Lungs-clear B/L
Abd-soft, NT, mild pelvic TTP
Musculoskeletal-bilateral lower EXTR edema, no deformity
Skin-warm and dry
Neuro-grossly non-focal
Psych-calm, cooperative
Ms. Pace is a 79-year-old female with a medical history of A-fib (on Eliquis), lower extremity venous insufficiency and lymphedema, NIDDM, CKD stage IIIb, hypertension, GERD, hypothyroidism, asthma, Sjogren's syndrome, ulcerative colitis, kidney
stones, chronic ambulatory dysfunction (wheelchair-bound), pulmonary nodules, and CROW who presented with hematuria. She has also been experiencing dysuria and vague back and pelvic pain. CT imaging shows a 7.5 mm stone in the right UPJ with no
hydronephrosis. She has been started on antibiotics and IV fluids and admitted for further evaluation and management.
Right ureteral stone:
-Continue IV fluids and antibiotics with aztreonam considering multiple allergies
-N.p.o. pending OR with urology
-Pain control as needed
-Follow-up neurology recommendations post procedure
CKD stage IIIb:
-Stable
-Renally dose all medications
NIDDM:
-Sliding scale insulin for now
-Appears to be on Januvia and metformin at home
-Accu-Cheks
A-fib:
-Continue home diltiazem 2040 mg p.o. 3 times daily for rate control
-Restart anticoagulation with Eliquis posterolateral procedure once hemostasis achieved
Hypothyroidism:
-Continue home levothyroxine 100 mcg daily
Hypertension:
-Continue home losartan 100 mg daily
Lower extremity venous insufficiency and lymphedema:
-Continue home Bumex, will continue IV fluids for now post urologic procedure
CODE STATUS: Full code
Anticipated Discharge: 24 - 48 hours
Subjective/Interval History
-
Date of Service: August 12, 2024
Patient was seen and examined at bedside this morning. Feeling constipated. Awaiting OR with urology for management of impassable right ureteral stone. Continuing IV fluids and antibiotics. Holding home Eliquis until post procedure.
Objective Data
-
Labs:
Laboratory Results
08/12/24 08/12/24
05:49 05:49
WBC 6.6
Hgb 11.5 L
Hct 35.8 L
Plt Count 284
Sodium 137
Potassium 4.1
Chloride 99
Carbon Dioxide 28
BUN 37 H
Creatinine 0.9
Glucose 126 H
Calcium 11.0 H 11.0 H
Total Bilirubin 1.2
AST 18
ALT 15
Alkaline Phosphatase 225 H
Vital Signs:
Vital Signs
Temp Pulse Resp BP Pulse Ox
97.7 F 90 20 150/92 97
08/12/24 11:05 08/12/24 11:05 08/12/24 11:05 08/12/24 11:05 08/12/24 11:05
Review of Systems
-
History Source: Patient
All other systems: Reviewed and negative
Abdomen/GI: Reports Constipated
Genitourinary: Reports Flank Pain (Right flank/pelvic pain)
Physical Exam
-
General: No Apparent Distress
--- NOTE | 2024-08-12 15:21 | W.SUR.POST ---
Surgical Immediate Post Op
Note
Pre Op Diagnosis: RT RENAL STONE OBSTRUCTION
Post Op DiagnosisSAME:
Procedure Performed:RT U/L/S BASKET EXTRACTION
Primary Surgeon:SHAHID
Secondary Surgeons:
Anesthesia:DR JUAN GENERAL
Estimated Blood Loss:2CC
Fluids: NS
Drains/Shunts:6 FR 24 CM J STENT 16 FR SILASTIC SFOLEY
Specimens/Cultures:
STONES
Doppler/Duplex/Angio (Y/N):
Complications: 0
Operative Findings: LG STONE IMPCTER RT UPJ
[2024-08-12 15:53] LABS: Glucose - Point of Care 133 mg/dl (70-99)
[2024-08-12] MEDS: TYLENOL 650 MG PO ×2 (16:04→21:50)
[2024-08-12] MEDS: ZOFRAN 4 MG IV ×2 (16:07→19:55)
[2024-08-12] MEDS: NSS 1000 IV (16:14)
[2024-08-12] MEDS: BUMEX 1 MG PO (16:40)
[2024-08-12] MEDS: LIPITOR 10 MG PO (16:47)
[2024-08-12] MEDS: SINGULAIR 10 MG PO (16:47)
[2024-08-12] MEDS: COZAAR 100 MG PO (16:47)
[2024-08-12 17:23] LABS: Glucose - Point of Care 156 mg/dl (70-99)
[2024-08-12] MEDS: MORPHINE SULFATE 2 MG IV (17:28)
[2024-08-12] MEDS: TORADOL 15 MG IV (19:55)
[2024-08-12] MEDS: SENOKOT-S 1 TABLET PO (19:56)
[2024-08-12] MEDS: XALATAN OPHTHALMIC SOLUTION 1 DROP BOTH EYES (21:50)
[2024-08-12 21:52] LABS: Glucose - Point of Care 279 mg/dl (70-99)
[2024-08-13] MEDS: AZACTAM 1000 MG IV ×3 (02:53→18:07)
[2024-08-13] MEDS: STERILE WATER FOR INJECTION 10 ML IV ×3 (02:53→18:07)
[2024-08-13 06:00] VITALS: BMI 47.9
[2024-08-13] MEDS: MIRALAX 17 GRAMS PO (06:20)
[2024-08-13] MEDS: SYNTHROID 100 MCG PO (06:20)
[2024-08-13] MEDS: TORADOL 15 MG IV ×2 (06:21→18:18)
[2024-08-13 07:30] VITALS: BP 108/63
[2024-08-13 07:45] LABS: % Basophils 0.2 % (0-2); % Immature Granulocytes 0.7 % (0-0.5); % Lymphocytes 6.9 % (20.5-51.1); % Monocytes 3.9 % (1.7-9.3); % Neutrophils 88.3 % (42.2-75.2); Absolute Lymphocytes 0.4 10^3/uL (1.2-3.4); Absolute Monocytes 0.2 10^3/uL (0.1-0.6); Absolute Neutrophils 5.3 10^3/uL (1.4-6.5); Hematocrit 36.7 % (37.0-47.0); Hemoglobin 11.3 g/dL (12.0-16.0); Mean Corp Hgb Conc. 30.8 g/dL (33.0-37.0); Mean Corpuscular Volume 84.6 fL (81.0-99.0); Nucleated Red Blood Cells % 0 %; Platelet Count 308 10^3/uL (130-400); Red Blood Cell Count 4.34 10^6/uL (4.20-5.40); Red Cell Dist. Width 16.2 % (11.5-14.5)
[2024-08-13 07:48] LABS: Glucose - Point of Care 185 mg/dl (70-99)
[2024-08-13] MEDS: MAG-TAB SR 84 MG PO (08:07)
[2024-08-13] MEDS: PROTONIX 40 MG PO (08:07)
[2024-08-13] MEDS: BUMEX 1 MG PO (08:07)
[2024-08-13] MEDS: COZAAR 100 MG PO (08:07)
[2024-08-13] MEDS: CARDIZEM CD 240 MG PO ×2 (08:07→21:30)
[2024-08-13] MEDS: VITAMIN B-12 1000 MCG PO (08:07)
[2024-08-13 08:10] LABS: ALT (SGPT) 17 U/L (0-35); AST (SGOT) 18 U/L (14-36); Albumin 4.3 g/dl (3.5-5.0); Alkaline Phosphatase 238 U/L (38-126); Blood Urea Nitrogen 40 mg/dl (7-17); Calcium 10.9 mg/dl (8.4-10.2); Carbon Dioxide 26 mmol/L (22-30); Chloride 99 mmol/L (98-107); Estimated Creatinine Clearance 44 ml/min; Glucose 182 mg/dl (70-99); Potassium 4.8 mmol/L (3.5-5.1); Sodium 138 mmol/L (135-145); Total Bilirubin 0.9 mg/dl (0.2-1.3); Total Protein 7.7 g/dl (6.3-8.2); eGFR 42.09
[2024-08-13 08:12] LABS: Glucose - Point of Care 252 mg/dl (70-99)
[2024-08-13] MEDS: NOVOLOG FLEXPEN-LOW RESISTANCE 3 UNITS SC (08:12)
[2024-08-13] MEDS: PULMICORT 0.5 MG INH (08:15)
--- NOTE | 2024-08-13 10:17 | W.PN.URO.CBU ---
Today's Communication / Plan
-
teach [facility] escobedo care and [facility] see pro[facility] to d/c
Assessment / Plan
-
stable for d/c with escobedo
Diagnosis
-
Date of Service: August 13, 2024
-
Patient Diagnosis:
Post Op Day:
Patient Diagnosis:
Post Op Day:
Patient Diagnosis:rt upj stone 7 mm with mild hydro hematuria on eliquis no fevr chillss/p u/sl/s removal has stent
Post Op Day:
Subjective
-
no fevr
Objective
-
Vital Signs
Temp Pulse Resp BP Pulse Ox
98.2 F 76 16 108/63 93
08/13/24 07:30 08/13/24 08:30 08/13/24 08:30 08/13/24 08:07 08/13/24 08:30
Intake and Output
08/12/24 08/13/24 08/14/24
06:59 06:59 06:59
Intake Total 480 / 480
Output Total 665 / 665
Balance -185 / -185
Intake:
Oral fluids 480 / 480
Output:
Urine, Esc[facility]edo 435 / 435
Urine, Voided 230 / 230
Other:
Number of approximated MODERATE 4 4
amounts of urine
Laboratory Results
08/13/24 07:13
08/13/24 07:13
Review of Systems
-
: No Symptoms
Physical Exam
-
General - well developed, well nourished, no acute distress
Chest - clear bilaterally
Abdomen - soft, non-tender, positive bowel sounds, no CVAT, no incisional pain or distention
Genitalia - normal
Rectal - normal
Skin - warm & dry with no rash
Neuro - AOx3, no motor deficits
Extremities - no clubbing, no cyanosis, no edema
Incision - clean, dry
Dressing - clean, dry, intact
Care Review
Data Reviewed
Discussed with: Hospitalist and Nursing
CT Scan: Image Pers Reviewed
[2024-08-13 10:46] LABS: Glucose - Point of Care 295 mg/dl (70-99)
[2024-08-13 11:00] VITALS: BMI 47.9
[2024-08-13] MEDS: TRIAMCINOLONE ACETONIDE 0.1% CREAM 1 APPLIC TOPICAL (11:05)
[2024-08-13] MEDS: FLUSH (NSS) 1 FLUSH IV (11:06)
[2024-08-13 11:30] VITALS: BP 99/63
[2024-08-13] MEDS: NOVOLOG FLEXPEN-LOW RESISTANCE 2 UNITS SC (12:04)
[2024-08-13 12:08] LABS: Glucose - Point of Care 220 mg/dl (70-99)
--- NOTE | 2024-08-13 12:24 | W.PN.CARDCBS ---
Today's Communication / Plan
-
Stable from a cardiology standpoint, resumption of Eliquis as soon as hemostasis is assured is recommended
Will sign off, please call us back if we can be of further assistance
Impression / Plan
-
Impression:
Ureteral calculi
Hematuria
Elevated BMI
Persistent atrial fibrillation
Severe CROW
Mild to moderate aortic stenosis
Hypertension
Hypercholesterolemia
Heart failure with preserved ejection fraction
Venous insufficiency
Type 2 diabetes mellitus
Depression
Multiple medical allergies
Echocardiogram July 04, 2024 finds hyperdynamic left ventricular systolic function ejection fraction 65 to 70%. Moderate aortic stenosis with peak and mean gradients of 40 and 21 with a calculated aortic valve area of 1 cm2. Trivial pericardial
effusion and no significant valvular disease overall unchanged from prior echocardiogram
Recommendations:
She is planned for the OR sometime this weekend to manage impassable stone.
She can proceed to ureteral stenting and removal of calculi at low to moderate cardiovascular risk.
While she does have history of heart failure with preserved ejection fraction as well as mild to moderate aortic stenosis and persistent atrial fibrillation, see seems to be rather stable from a cardiovascular standpoint and as such can proceed
without further testing.
She underwent ureteral surgery, removing a obstructive 7 mm right ureteral stone yesterday.
She has remained hemodynamically stable postsurgery
She has been seen by urology today and felt to be stable from their standpoint for discharge with Lock catheter.
From a cardiology standpoint would resume Eliquis 5 mg twice daily once okay with primary service and urology.
Continue Cardizem CD2 140 mg 3 times daily which is provided her adequate rate control and tolerating well.
Patient describes that she believes she has been taking a lower dose of losartan, she believes she is taking 50 mg daily most recently.
Hypertension management as per primary service, consider reducing losartan dose from 100 mg daily to 50 mg daily
Stable from a cardiology standpoint, resumption of Eliquis as soon as hemostasis is assured is recommended
Will sign off, please call us back if we can be of further assistance
Progress Note - [facility]
Subjective
Date of Service: August 13, 2024
No chest pain shortness of breath palpitations or dizziness
Objective
Labs:
08/13/24 07:13
08/13/24 07:13
Labs
Hgb 11.3 g/dL (12.0-16.0) L 08/13/24 07:13
Hct 36.7 % (37.0-47.0) L 08/13/24 07:13
Plt Count 308 10^3/uL (130-400) 08/13/24 07:13
Sodium 138 mmol/L (135-145) 08/13/24 07:13
Potassium 4.8 mmol/L (3.5-5.1) 08/13/24 07:13
BUN 40 mg/dl (7-17) H 08/13/24 07:13
Creatinine 1.3 mg/dL (0.6-1.0) H 08/13/24 07:13
Glucose 182 mg/dl (70-99) H 08/13/24 07:13
Vital Signs and I&O:
Vital Signs
Temp Pulse Resp BP Pulse Ox
98.2 F 76 16 108/63 93
08/13/24 07:30 08/13/24 08:30 08/13/24 08:30 08/13/24 08:07 08/13/24 08:30
Vital Signs
Temp Pulse Resp BP Pulse Ox
98.2 F 76 16 108/63 93
08/13/24 07:30 08/13/24 08:30 08/13/24 08:30 08/13/24 08:07 08/13/24 08:30
Intake & Output
08/11/24 08/12/24 08/13/24 08/14/24
06:59 06:59 06:59 06:59
Intake Total 480 / 480
Output Total 665 / 665
Balance -185 / -185
Physical Exam
Physical Exam
Sitting at bedside, smiling appears comfortable
Morbidly obese
Irregular irregular with normal S1 and S2 no S3 no S4 degree 1/6 apical holosystolic murmur no rubs
Lungs with reduced breath sounds but clear bilateral
[2024-08-13] MEDS: NSS 1000 IV (14:53)
[2024-08-13] MEDS: CARDIZEM CD PO (15:10)
[2024-08-13 15:25] VITALS: BP 93/58
--- NOTE | 2024-08-13 15:51 | W.PN.HOSP.TC ---
Today's Communication/Plan
-
Assessment / Plan
Assessment / Plan
Gen-AAOx3, NAD
HEENT-NC, AT, anicteric, clear oral mm
Neck-supple
CV-reg, no M, +S1/S2
Lungs-clear B/L
Abd-soft, NT, Lock catheter in place with dark urine output
Musculoskeletal-bilateral lower extremity edema, no deformity
Skin-warm and dry
Neuro-grossly non-focal
Psych-overwhelmed and upset about having to stay overnight again, cooperative
Ms. Pace is a 79-year-old female with a medical history of A-fib (on Eliquis), lower extremity venous insufficiency and lymphedema, NIDDM, CKD stage IIIb, hypertension, GERD, hypothyroidism, asthma, Sjogren's syndrome, ulcerative colitis, kidney
stones, chronic ambulatory dysfunction (wheelchair-bound), pulmonary nodules, and CROW who presented with hematuria. She has also been experiencing dysuria and vague back and pelvic pain. CT imaging shows a 7.5 mm stone in the right UPJ with no
hydronephrosis. She has been started on antibiotics and IV fluids and admitted for further evaluation and management.
Right ureteral stone:
-Status post OR with urology 08/12 for right ureteral stent placement
-Lock catheter should remain in place at discharge, will be managed at home by visiting nurse
-Right ureteral stent has a string attached to urethra which should remain in place after Lock removal at home
-Continue IV fluids and antibiotics with aztreonam considering multiple allergies
-ID consult for assistance in selecting an appropriate antibiotic regimen
-Pain control as needed
-Will need outpatient urology follow-up for stent removal
-Plan for discharge to home with home care 08/14 if appropriate antibiotic regimen can be arranged considering her multiple allergies
FAVIAN on CKD stage IIIb:
-Renal function slightly worse than baseline likely due to recent ureteral stone with subsequent hydroureteronephrosis
-Monitor for renal recovery now that obstructing stone has been intervened on
-Holding home Bumex for now, giving gentle IV fluids
-Avoid ANKIT/ARB's, please note patient reports she was recently told by her PCP to stop taking losartan (was previously supposed to be taking only 50 mg daily, reduced from 100 mg daily, however was accidentally taking 100 mg instead following last
hospital discharge)
-Discontinue spironolactone, patient reports her PCP recently discontinued her home spironolactone
NIDDM:
-Sliding scale insulin for now
-Appears to be on Januvia and metformin at home
-Accu-Cheks
-Recommend close follow-up with her PCP after hospital discharge to revisit diabetic regimen and adjust as needed considering her CKD
A-fib:
-Continue home diltiazem 240 mg p.o. 3 times daily for rate control
-Will plan to restart Eliquis first dose morning 08/14 unless recurrent hematuria
Hypothyroidism:
-Continue home levothyroxine 100 mcg daily
Hypertension:
-Currently hypotensive
-Holding losartan, which patient reports was discontinued recently by her PCP, should not be continued at discharge
Lower extremity venous insufficiency and lymphedema:
-Holding Bumex for now while giving IV fluids after neurologic procedure and considering mild FAVIAN
-Plan to restart home Bumex likely morning of 08/14 if renal function improved
CODE STATUS: Full code
Anticipated Discharge: 24 - 48 hours
Subjective/Interval History
-
Date of Service: August 13, 2024
Patient was seen and examined at bedside this morning. Initially plan for discharge to home with urology follow-up. However, she will stay today for management of hypotension, FAVIAN, and IV antibiotics following urologic procedure yesterday with
stent placement.
Objective Data
-
Labs:
Laboratory Results
08/13/24
07:13
WBC 6.0
Hgb 11.3 L
Hct 36.7 L
Plt Count 308
Sodium 138
Potassium 4.8
Chloride 99
Carbon Dioxide 26
BUN 40 H
Creatinine 1.3 H
Glucose 182 H
Calcium 10.9 H
Total Bilirubin 0.9
AST 18
ALT 17
Alkaline Phosphatase 238 H
Vital Signs:
Vital Signs
Temp Pulse Resp BP Pulse Ox
97.9 F 80 20 93/58 92
08/13/24 15:25 08/13/24 15:25 08/13/24 15:25 08/13/24 15:25 08/13/24 15:25
I&O
08/12/24 08/13/24 08/14/24
06:59 06:59 06:59
Intake Total 480 / 480
Output Total 665 / 665
Balance -185 / -185
Review of Systems
-
History Source: Patient
All other systems: Reviewed and negative
Abdomen/GI: Reports Constipated
Physical Exam
-
General: No Apparent Distress
--- NOTE | 2024-08-13 16:18 | PTCARENOTE ---
Pt up to bedside commode with basin instead of bucket. (There were no buckets available). Pt upper thighs got pinched. Blood noted as she got up. Foam placed. Pt very anxious that she did not go home today. She doesn't think she can function with
the escobedo catheter at home and would like it out. Emotional support given. Her in room with patient at thiis time. Pt able to get to chair with assist and walker. Will order dinner now.
[2024-08-13 16:40] LABS: Glucose - Point of Care 149 mg/dl (70-99)
[2024-08-13] MEDS: NOVOLOG FLEXPEN-LOW RESISTANCE SC (16:43)
[2024-08-13] MEDS: SINGULAIR 10 MG PO (18:07)
[2024-08-13] MEDS: LIPITOR 10 MG PO (18:07)
[2024-08-13 19:59] VITALS: BP 115/67
[2024-08-13] MEDS: XALATAN OPHTHALMIC SOLUTION 1 DROP BOTH EYES (21:29)
[2024-08-13] MEDS: SENOKOT-S 1 TABLET PO (21:40)
[2024-08-13 21:53] LABS: Glucose - Point of Care 219 mg/dl (70-99)
[2024-08-13 23:56] VITALS: BP 112/72
[2024-08-14] VITALS (7 sets, daily range): BP systolic 96–125; BP diastolic 63–74; BMI 48.7
[2024-08-14] MEDS: AZACTAM 1000 MG IV ×3 (01:39→17:46)
[2024-08-14] MEDS: STERILE WATER FOR INJECTION 10 ML IV ×3 (01:40→17:46)
--- NOTE | 2024-08-14 05:18 | W.PN.HOSP.TC ---
Today's Communication/Plan
-
monitor renal function
IV fluid as per nephro
abx as per ID
rate control
glycemic control
Assessment / Plan
Assessment / Plan
Physical Exam
Gen- No acute distress, appears comfortable at this time
HEENT-NC, AT, anicteric, clear oral mm
Neck-supple
CV-reg, no M, +S1/S2
Lungs-clear B/L
Abd-soft, NT, Lock catheter in place with dark urine output
Musculoskeletal-bilateral lower extremity edema, no deformity
Skin-warm and dry
Neuro- AOx3 conversant coherent
Psych- Calm cooperative
Ms. Pace is a 79-year-old female with a medical history of A-fib (on Eliquis), lower extremity venous insufficiency and lymphedema, NIDDM, CKD stage IIIb, hypertension, GERD, hypothyroidism, asthma, Sjogren's syndrome, ulcerative colitis, kidney
stones, chronic ambulatory dysfunction (wheelchair-bound), pulmonary nodules, and CROW who presented with hematuria. She has also been experiencing dysuria and vague back and pelvic pain. CT imaging shows a 7.5 mm stone in the right UPJ with no
hydronephrosis. She has been started on antibiotics and IV fluids and admitted for further evaluation and management.
Right ureteral stone:
-Status post OR with urology 08/12 for right ureteral stent placement
-Lock catheter should remain in place at discharge, will be managed at home by visiting nurse
-Right ureteral stent has a string attached to urethra which should remain in place after Lock removal at home
-Continue IV fluids and antibiotics with aztreonam considering multiple allergies
-ID eval appreciated cont aztreonam
-Daughter notes patient has tolerated Doxycycline in past
-Pain control as needed
-Will need outpatient urology follow-up for stent removal
FAVIAN on CKD stage IIIb
Hypercalcemia
Hyperparathyroidism
-Vit D wnl, discontinue further supplementation
-Renal function worsening
-Holding home Bumex for now
-Nephro eval appreciated cont IV hydration
-Avoid ANKIT/ARB's, please note patient reports she was recently told by her PCP to stop taking losartan (was previously supposed to be taking only 50 mg daily, reduced from 100 mg daily, however was accidentally taking 100 mg instead following last
hospital discharge)
-Discontinue spironolactone, patient reports her PCP recently discontinued her home spironolactone
NIDDM:
-Sliding scale insulin for now
-Appears to be on Januvia and metformin at home
-Accu-Cheks
-Recommend close follow-up with her PCP after hospital discharge to revisit diabetic regimen and adjust as needed considering her CKD
A-fib:
-Continue home diltiazem 240 mg p.o. 3 times daily for rate control
-Eliquis resumed
Hypothyroidism:
-Continue home levothyroxine 100 mcg daily
Hypertension:
Hypotension resolved
-Holding losartan, which patient reports was discontinued recently by her PCP, should not be continued at discharge
Lower extremity venous insufficiency and lymphedema:
-Holding Bumex for now while giving IV fluids after urologic procedure, progressive FAVIAN, hypercalcemia
Constipation
-cont bowel regimen miralax senna colace, hold if diarrhea
CODE STATUS: Full code
Discussed with patient, patient's Alphonso, and patient's daughter Iesha
I spent a total of 50 minutes with the patient or on the floor. More than 50% of this time involved counseling and coordination of care.
Anticipated Discharge: 24 - 48 hours
Subjective/Interval History
-
Date of Service: August 14, 2024
gross hematuria persists in Lock. Patient also reports constipation. Otherwise no acute distress. Sitting up comfortably in chair. Alphonso present during evaluation.
Objective Data
-
Labs:
Laboratory Results
08/14/24
06:00
WBC Pending
Hgb Pending
Hct Pending
Plt Count Pending
Sodium Pending
Potassium Pending
Chloride Pending
Carbon Dioxide Pending
BUN Pending
Creatinine Pending
Glucose Pending
Calcium Pending
Total Bilirubin Pending
AST Pending
ALT Pending
Alkaline Phosphatase Pending
Vital Signs:
Vital Signs
Temp Pulse Resp BP Pulse Ox
97.7 F 64 14 112/70 91
08/14/24 03:56 08/14/24 03:56 08/14/24 03:56 08/14/24 03:56 08/14/24 03:56
I&O
08/12/24 08/13/24 08/14/24
06:59 06:59 06:59
Intake Total 480 / 480 1080 / 1080
Output Total 665 / 665 100 / 100
Balance -185 / -185 980 / 980
[2024-08-14] MEDS: SYNTHROID 100 MCG PO (05:42)
[2024-08-14] MEDS: PULMICORT 0.5 MG INH (07:31)
[2024-08-14 08:06] LABS: Glucose - Point of Care 127 mg/dl (70-99)
[2024-08-14] MEDS: NOVOLOG FLEXPEN-LOW RESISTANCE SC ×3 (08:16→17:33)
[2024-08-14 08:30] LABS: % Basophils 0.4 % (0-2); % Eosinophils 0.7 % (0-6); % Immature Granulocytes 0.3 % (0-0.5); % Lymphocytes 13.8 % (20.5-51.1); % Monocytes 8.3 % (1.7-9.3); % Neutrophils 76.5 % (42.2-75.2); Absolute Eosinophils 0.1 10^3/uL (0-0.7); Absolute Monocytes 0.6 10^3/uL (0.1-0.6); Absolute Neutrophils 5.4 10^3/uL (1.4-6.5); Hemoglobin 10.3 g/dL (12.0-16.0); Mean Corp Hgb Conc. 31.2 g/dL (33.0-37.0); Mean Corpuscular Hgb 26.2 pg (27.0-31.0); Mean Platelet Volume 11.4 fL (7.4-10.4); Nucleated Red Blood Cells % 0 %; Platelet Count 276 10^3/uL (130-400); Red Blood Cell Count 3.93 10^6/uL (4.20-5.40); Red Cell Dist. Width 16.2 % (11.5-14.5); White Blood Cell Count 7.1 10^3/uL (4.8-10.8)
[2024-08-14] MEDS: PROTONIX 40 MG PO (08:46)
[2024-08-14] MEDS: VITAMIN B-12 1000 MCG PO (08:46)
[2024-08-14] MEDS: MAG-TAB SR 84 MG PO (08:46)
[2024-08-14] MEDS: CARDIZEM CD PO ×2 (08:46→21:22)
[2024-08-14] MEDS: ELIQUIS 5 MG PO ×2 (08:46→19:51)
[2024-08-14] MEDS: TRIAMCINOLONE ACETONIDE 0.1% CREAM 1 APPLIC TOPICAL (08:47)
[2024-08-14 09:00] LABS: ALT (SGPT) 14 U/L (0-35); AST (SGOT) 16 U/L (14-36); Albumin 3.6 g/dl (3.5-5.0); Alkaline Phosphatase 187 U/L (38-126); Blood Urea Nitrogen 59 mg/dl (7-17); Calcium 10.8 mg/dl (8.4-10.2); Carbon Dioxide 25 mmol/L (22-30); Chloride 101 mmol/L (98-107); Estimated Creatinine Clearance 32 ml/min; Glucose 127 mg/dl (70-99); Potassium 4.9 mmol/L (3.5-5.1); Sodium 136 mmol/L (135-145); Total Bilirubin 0.6 mg/dl (0.2-1.3); Total Protein 6.9 g/dl (6.3-8.2); eGFR 28.48
[2024-08-14] MEDS: TORADOL 15 MG IV (09:50)
[2024-08-14 12:30] LABS: Glucose - Point of Care 144 mg/dl (70-99)
--- NOTE | 2024-08-14 14:35 | CON.ID ---
Consultation
-
Date/Time Consultation Requested: 08/13/24 13:43
Date/Time Consultation Performed: 08/14/24 14:35
Requesting Provider: Dr Evans
Performing Provider: Dr Mendez
Reason for Consultation: Abx recommendations, multiple allergies and renal dysfunction
Chief Complaint / Past History
Chief Complaint
Left lower quadrant abdominal pain, hematuria with clots from voiding
History of Present Illness
Stone is a 79 year old female with history of renal stones, UC, DM2, class III obesity who presented here 08/11 for dysuria, abdominl pain, hematuria and passage of clots while urinating. On eliquis for Afib. She denies headache, sore throat,
chest pain, palpitations, cough, shortness of breath, nausea, vomiting, diarrhea, rash.
Since arrival here she has been afebrile, bp stable, wbc initially 8.2 now 7.1, hgb 10.3, plt 276, L shift present on arrival and is now improving, cr baseline appears to be 0.9, Cr today 1.8, ua on arrival >100 rbc/hpf and 11-15 wbcs, 08/11 Ct a/p
without IV or oral contrast: 7.5 mm calculus at the right ureteral pelvic junction. No significant right-sided hydronephrosis. No left-sided urinary tract calculi, moderately distended gallbladder, 08/12 she was taken to the OR and underwent Right
ureteroscopy, laser lithotripsy of stone, stone extraction with basket, right double-J stent placement, urine culture was from prior to the OR and was 30K mixed terrie. She is currently on day 4 of aztreonam. Reports allergy/intolerance to numerous
medications. ID is consulted for assistance with management
Past History
Additional Past Medical History:
Lymphedema
cellulitis
Peripheral edema
Venous stasis
Venous insufficiency
Obstructive sleep apnea
GERD
Type 2 diabetes
Hypertension
Asthma
Ulcerative colitis
Hypothyroidism
Psoriasis
Hyperlipidemia
Diverticulosis
Irritable bowel syndrome
Autoimmune disease
Rosacea
Fibrocystic breast
A-fib
Additional Past Surgical History:
DNC
Kidney stone removed
Allergy History:
alendronate sodium [From Fosamax] Allergy (Verified 08/11/24 10:40)
esophagus spasms
cephalexin [From Keflex] Allergy (Verified 08/11/24 10:40)
throat closed
clarithromycin [From Biaxin] Allergy (Verified 08/11/24 10:40)
Hives
erythromycin base Allergy (Verified 08/11/24 10:40)
Rash, diarrhea
fentanyl Allergy (Verified 08/11/24 10:40)
difficulty awakening from surgery
fish oil Allergy (Verified 08/11/24 10:40)
Unknown
house dust Allergy (Verified 08/11/24 10:40)
sneeze
hyoscyamine Allergy (Verified 08/11/24 10:40)
throat tightening
influenza virus vaccine, specific Allergy (Verified 08/11/24 10:40)
Unknown
Iodinated Contrast Media Allergy (Verified 08/11/24 17:26)
Unknown
latex Allergy (Verified 08/11/24 10:40)
Rash
levalbuterol [From Xopenex] Allergy (Verified 08/11/24 10:40)
'bee sting sensation all over'
levofloxacin [From Levaquin] Allergy (Verified 08/11/24 10:40)
difficulty breathing
mold Allergy (Verified 08/11/24 10:40)
rash/hives/sob
nut - unspecified Allergy (Verified 08/11/24 10:40)
Unknown
Penicillins Allergy (Verified 08/11/24 10:40)
Hives
pneumococcal vaccine Allergy (Verified 08/11/24 10:40)
Rash
shellfish derived Allergy (Verified 08/11/24 10:40)
hives/difficulty breathing
tetanus and diphtheria toxoids Allergy (Verified 08/11/24 10:40)
wheezing
vancomycin Allergy (Verified 08/11/24 10:40)
Shortness of Breath
Medications Reviewed: Yes
Social History
Tobacco: Former Smoker
Alcohol: None
Drug: None
Review of Systems
Review of Systems
General: Negative Fever or Chills
All systems: All other systems were reviewed and were negative
Vital Signs
Temp Pulse Resp BP Pulse Ox
97.7 F 82 16 125/67 94
08/14/24 11:20 08/14/24 11:20 08/14/24 11:20 08/14/24 11:20 08/14/24 11:20
Physical Exam
Physical Exam
Constitutional: No Acute Distress, Chronically Ill and Obese
Cardiovascular: Regular Rate and S1/S2; Negative Murmur or Rub
Pulmonary: Clear and Symmetric; Negative Wheezes, Rales or Rhonchi
Gastrointestinal: Soft, Non Tender, Non Distended and Normal Bowel Sounds
Genito-Urinary: Other (does complain of pain over the R groin); Negative Suprapubic Tenderness or CVA Tenderness
Skin: Warm and Dry; Negative Rash or Jaundice
Lab / Diagnostic Study Results
08/14/24 08:02
08/14/24 08:02
Abs Immat Gran (auto) 0.0 10^3/uL (0-0.05) 08/14/24 08:02
Absolute Neuts (auto) 5.4 10^3/uL (1.4-6.5) 08/14/24 08:02
Absolute Lymphs (auto) 1.0 10^3/uL (1.2-3.4) L 08/14/24 08:02
Absolute Monos (auto) 0.6 10^3/uL (0.1-0.6) 08/14/24 08:02
Absolute Basos (auto) 0.0 10^3/uL (0-0.2) 08/14/24 08:02
Immature Gran % 0.3 % (0-0.5) 08/14/24 08:02
Neutrophils % 76.5 % (42.2-75.2) H 08/14/24 08:02
Lymphocytes % 13.8 % (20.5-51.1) L 08/14/24 08:02
Monocytes % 8.3 % (1.7-9.3) 08/14/24 08:02
Eosinophils % 0.7 % (0-6) 08/14/24 08:02
Basophils % 0.4 % (0-2) 08/14/24 08:02
Ur Squamous Epith Cells -15 /LPF (Few) 08/11/24 12:09
Microbiology Results
Micro:
08/11/24 12:09 Urine Culture - Final
Urine
Assessment / Plan
Suspected Pyelonephritis due to obsturcting renal stone
s/p lithotripsy 08/12
FAVIAN
Stated allergies to: Penicillin - hives, Keflex - throat closed, clarithromycin - hives, levofloxacin - dyspnea, vancomycin dyspnea, latex - rash
- will need to see renal function stabilize prior to finalizing antibiotic regimen
- urine culture prior to relief of obstruction with 30 K mixed terrie
- stated allergies/reactions and renal function greatly limits treatment options
- c/w aztreonam, tentatively plan a 7 day course of treatment 08/11-08/17,
Care Review
Plan reviewed with: Physician (Dr Escobedo - duration)
[2024-08-14] MEDS: SENOKOT-S 1 TABLET PO ×2 (15:11→19:52)
[2024-08-14] MEDS: CARDIZEM CD 240 MG PO (15:11)
[2024-08-14 16:00] LABS: Vitamin D, 25-OH*** 37.7 ng/mL (30-80)
--- NOTE | 2024-08-14 16:13 | W.CON.NEPH ---
Consultation
-
Date/Time Consultation Requested: August 14, 2024 at 2 PM
Date/Time Consultation Performed: August 14, 2024 at 3 PM
Requesting Provider: Dr. Escobedo
Performing Provider: Dr. Cheng
Reason for Consultation: Acute kidney injury and hypercalcemia
Medical History
-
Chief Complaint: Acute kidney injury
History of Present Illness:
79 year old female with history of renal stones, UC, DM2, class III obesity who presented here 08/11 for dysuria, abdominl pain, hematuria and passage of clots while urinating. On eliquis for Afib.
Renal consult for hypercalcemia and acute kidney injury.
Creatinine was as high as 1.8 she was found to have a 7.5 mm calculus at the right ureteral pelvic junction, she was taken to the OR and underwent Right ureteroscopy, laser lithotripsy of stone, stone extraction with basket, right double-J stent
placement
Currently has a Lock catheter and is nonoliguric.
Her creatinine 1.8 with a calcium of 11.5.
Her baseline creatinine is 0.9-1.1.
She was recently hospitalized July 2024 for CHF, COPD and CROW and was discharged with a creatinine as 1.1. At that time her calcium was 11.1 with PTH of 88.
On this admission her PTH is 112. She was discharged on spironolactone and loop diuretic.
Past Medical History
history of renal stones, UC, DM2, class III obesity CHF, CROW, CKD, atrial fibrillation chronic lymphedema
Social History
Tobacco: Non-Smoker
Alcohol: None
Allergies / Home Medications
Allergy/AdvReac Type Severity Reaction Status Date / Time
alendronate sodium Allergy esophagus Verified 08/11/24 10:40
[From Fosamax] spasms
cephalexin [From Keflex] Allergy throat Verified 08/11/24 10:40
closed
clarithromycin [From Biaxin] Allergy Hives Verified 08/11/24 10:40
erythromycin base Allergy Rash, Verified 08/11/24 10:40
diarrhea
fentanyl Allergy difficulty Verified 08/11/24 10:40
awakening
from
surgery
fish oil Allergy Unknown Verified 08/11/24 10:40
house dust Allergy sneeze Verified 08/11/24 10:40
hyoscyamine Allergy throat Verified 08/11/24 10:40
tightening
influenza virus vaccine, Allergy Unknown Verified 08/11/24 10:40
specific
Iodinated Contrast Media Allergy Unknown Verified 08/11/24 17:26
latex Allergy Rash Verified 08/11/24 10:40
levalbuterol [From Xopenex] Allergy 'bee sting Verified 08/11/24 10:40
sensation
all over'
levofloxacin [From Levaquin] Allergy difficulty Verified 08/11/24 10:40
breathing
mold Allergy rash/hives/ Verified 08/11/24 10:40
sob
nut - unspecified Allergy Unknown Verified 08/11/24 10:40
Penicillins Allergy Hives Verified 08/11/24 10:40
pneumococcal vaccine Allergy Rash Verified 08/11/24 10:40
shellfish derived Allergy hives/difficulty Verified 08/11/24 10:40
breathing
tetanus and diphtheria Allergy wheezing Verified 08/11/24 10:40
toxoids
vancomycin Allergy Shortness Verified 08/11/24 10:40
of Breath
�Medication �Instructions �Recorded �Confirmed �Type
budesonide 0.5 mg/2 mL suspension 0.5 mg inhalation R DAILY 07/01/24 08/11/24 History
for nebulization
light mineral oil 1 %-mineral oil 1 drp ophthalmic (eye) DAILYPRN 07/01/24 08/11/24 History
4.5 % eye drops (Soothe XP) PRN both eyes
sodium chloride 0.65 % nasal spray 1 spray intranasal TIDPRN PRN 07/01/24 08/11/24 History
aerosol dryness
apixaban 5 mg tablet (Eliquis) 5 mg PO BID Blood clot 07/14/24 08/11/24 Rx
prevention/tx #0 tabs
atorvastatin 10 mg tablet 10 mg PO QPM High cholesterol 30 07/14/24 08/11/24 Rx
days #30 tabs
bumetanide 1 mg tablet 1 mg PO DAILY Fluid 07/14/24 08/11/24 Rx
retention/Swelling #30 tabs
cetirizine 10 mg tablet 10 mg PO DAILY Allergies #0 tabs 07/14/24 08/11/24 Rx
cholecalciferol (vitamin D3) 25 1,000 unit PO Q48H Supplement #0 07/14/24 08/11/24 Rx
mcg (1,000 unit) tablet tabs
cyanocobalamin (vitamin B-12) 1,000 mcg PO DAILY Supplement #0 07/14/24 08/11/24 Rx
1,000 mcg tablet (Vitamin B-12) tabs
diltiazem HCl 240 mg 240 mg PO TID Arrhythmia #0 caps 07/14/24 08/11/24 Rx
capsule,extended release 24 hr
mesalamine 1.2 gram tablet,delayed 2.4 g (2 x 1.2 gram) PO DAILY 07/14/24 08/11/24 Rx
release Gastrointestinal issue #0 tabs
montelukast 10 mg tablet 10 mg PO QPM Allergies #0 tabs 07/14/24 08/11/24 Rx
sitagliptin phosphate 100 mg 100 mg PO DAILY Diabetes #0 tabs 07/14/24 08/11/24 Rx
tablet (Januvia)
acetaminophen 650 mg 650 mg PO DAILYPRN PRN mild pain 08/11/24 08/11/24 History
tablet,extended release
docusate sodium 100 mg capsule 100 mg PO DAILYPRN PRN constipation 08/11/24 08/11/24 History
levothyroxine 100 mcg tablet 100 mcg PO DAILY Thyroid 08/11/24 08/11/24 History
losartan 100 mg tablet 100 mg PO DAILY 08/11/24 08/11/24 History
magnesium oxide 400 mg PO DAILY 08/11/24 08/11/24 History
metformin 500 mg tablet 500 mg PO BID Diabetes 08/11/24 08/11/24 History
methylcellulose (laxative) 500 mg 250 mg PO HSPRN PRN fiber 08/11/24 08/11/24 History
tablet (Citrucel) suppliment
pantoprazole 40 mg tablet,delayed 40 mg PO DAILY Gastrointestinal 08/11/24 08/11/24 History
release issue
spironolactone 12.5 mg PO DAILY 08/11/24 08/11/24 History
travoprost 0.004 % eye drops 1 drp BOTH EYES HS 08/11/24 08/11/24 History
triamcinolone acetonide 0.1 % 1 applic topical DAILY both lower 08/11/24 08/11/24 History
topical cream legs
triamcinolone acetonide 55 mcg 1 spray intranasal HS Congestion 08/11/24 08/11/24 History
nasal spray aerosol (Nasacort)
vitamin A and D 1 applic topical DAILY b/l buttock 08/11/24 08/11/24 History
sore
Review of Systems
-
No chest pain or shortness of breath
All other systems: Negative unless noted
Physical Exam
Vital Signs
Vital Signs
Temp Pulse Resp BP Pulse Ox
97.7 F 83 18 121/73 92
08/14/24 15:08 08/14/24 15:11 08/14/24 15:08 08/14/24 15:11 08/14/24 15:08
Lab Results
WBC 7.1 10^3/uL (4.8-10.8) 08/14/24 08:02
RBC 3.93 10^6/uL (4.20-5.40) L 08/14/24 08:02
Hgb 10.3 g/dL (12.0-16.0) L 08/14/24 08:02
Hct 33.0 % (37.0-47.0) L 08/14/24 08:02
Plt Count 276 10^3/uL (130-400) 08/14/24 08:02
Sodium 136 mmol/L (135-145) 08/14/24 08:02
Potassium 4.9 mmol/L (3.5-5.1) 08/14/24 08:02
Chloride 101 mmol/L (98-107) 08/14/24 08:02
Carbon Dioxide 25 mmol/L (22-30) 08/14/24 08:02
BUN 59 mg/dl (7-17) H 08/14/24 08:02
Creatinine 1.8 mg/dL (0.6-1.0) H 08/14/24 08:02
eGFR 28.48 08/14/24 08:02
Glucose 127 mg/dl (70-99) H 08/14/24 08:02
Calcium 10.8 mg/dl (8.4-10.2) H 08/14/24 08:02
Albumin 3.6 g/dl (3.5-5.0) 08/14/24 08:02
Physical Exam
General no acute distress
HEENT no cephalic atraumatic extraocular muscle intact no scleral icterus no JVD neck supple
lungs rhonchi with fine crackles at the base
heart regular S1-S2 positive
abdomen soft nontender positive bowel sounds
extremities chronic edema with venous stasis changes
Neurologically nonfocal alert and oriented x 3
Skin no lesions no abrasions no petechiae
Psych normal affect no bizarre behavior
Data Reviewed
-
Radiology: Image Personally Visualized and interpreted
Labs: Labs Reviewed by me, Discussed with Patient and Discussed with Family
Assessment/Plan
-
79 year old female with history of renal stones, UC, DM2, class III obesity who presented here 08/11 for dysuria, abdominl pain, hematuria and passage of clots while urinating. On eliquis for Afib.
Renal consult for hypercalcemia and acute kidney injury.
she was found to have a 7.5 mm calculus at the right ureteral pelvic junction, she was taken to the OR and underwent Right ureteroscopy, laser lithotripsy of stone, stone extraction with basket, right double-J stent placement
Currently has a Lock catheter and is nonoliguric.
Her creatinine 1.8 with a calcium of 11.5.
Her baseline creatinine is 0.9-1.1.
She was recently hospitalized July 2024 for CHF, COPD and CROW and was discharged with a creatinine as 1.1. At that time her calcium was 11.1 with PTH of 88.
On this admission her PTH is 112. She was discharged on spironolactone and loop diuretic.
Impression.
Acute kidney injury on chronic kidney disease stage IIIa baseline creatinine 1.1.
Creatinine on admission 1.3.
Creatinine on consultation status post lithotripsy with stent 1.8.
Hypercalcemia 11.8.
CHF with preserved ejection fraction moderate aortic stenosis
CROW morbid obesity.
Diabetes.
Plan.
She is a complicated medical history the acuity is multifactorial from renal calculi and hypercalcemia.
Maintain Lock catheter.
Would avoid thiazide diuretics and spironolactone for now with hypercalcemia.
PTH elevated in the setting of CKD, FAVIAN.= Reviewing records calcium elevated going back to 2019 per records
Restart IV fluids and monitor pulmonary function.
In light of her renal stone and the hypercalcemia which appears to be ongoing we will need to address the hypercalcemia. We could temporize calcium with the medication such as Sensipar going forward and would avoid vitamin D supplements at this time
A.m. labs
--- NOTE | 2024-08-14 16:37 | CM ---
Spoke with t at bedside.
She requested [facility] [place]
Referral up dated in care port.
Pt has a Lock and stent.
PLAN Home with [facility] fax [phone]
[2024-08-14 17:05] LABS: Glucose - Point of Care 138 mg/dl (70-99)
[2024-08-14] MEDS: NSS 1000 IV (17:46)
[2024-08-14] MEDS: LIPITOR 10 MG PO (17:47)
[2024-08-14] MEDS: SINGULAIR 10 MG PO (17:47)
--- NOTE | 2024-08-14 17:55 | W.PN.URO.CBU ---
Today's Communication / Plan
-
no gu changes
Assessment / Plan
-
stable for d/c with luisito medically stable eval of pth 112
Diagnosis
-
Date of Service: August 14, 2024
-
Patient Diagnosis:
Post Op Day:
Patient Diagnosis:
Post Op Day:
Patient Diagnosis:
Post Op Day:
Patient Diagnosis:rt upj stone 7 mm with mild hydro hematuria on eliquis no fevr chillss/p u/sl/s removal has stent
Post Op Day:
Subjective
-
hates but understands escobedo
Objective
-
Vital Signs
Temp Pulse Resp BP Pulse Ox
97.7 F 83 18 121/73 92
08/14/24 15:08 08/14/24 15:11 08/14/24 15:08 08/14/24 15:11 08/14/24 15:08
Intake and Output
08/13/24 08/14/24 08/15/24
06:59 06:59 06:59
Intake Total 480 / 480 1080 / 1080
Output Total 665 / 665 100 / 100 350 / 350
Balance -185 / -185 980 / 980 -350 / -350
Intake:
Oral fluids 480 / 480 1080 / 1080
Output:
Urine, Escobedo 435 / 435 100 / 100 350 / 350
Urine, Voided 230 / 230
Other:
Number of approximated MODERATE 4
amounts of urine
Laboratory Results
08/14/24 08:02
08/14/24 08:02
Review of Systems
-
: Bleeding
Physical Exam
-
General - well developed, well nourished, no acute distress
Chest - clear bilaterally
Abdomen - soft, non-tender, positive bowel sounds, no CVAT, no incisional pain or distention
Genitalia - normal
Rectal - normal
Skin - warm & dry with no rash
Neuro - AOx3, no motor deficits
Extremities - no clubbing, no cyanosis, no edema
Incision - clean, dry
Dressing - clean, dry, intact
Care Review
Data Reviewed
Discussed with: Nursing
[2024-08-14] MEDS: XALATAN OPHTHALMIC SOLUTION 1 DROP BOTH EYES (21:22)
[2024-08-14 21:56] LABS: Glucose - Point of Care 132 mg/dl (70-99)
[2024-08-15] VITALS (8 sets, daily range): BP systolic 97–132; BP diastolic 41–80; PULSE 100; O2SAT 92; BMI 48.8
[2024-08-15] MEDS: AZACTAM 1000 MG IV ×3 (01:25→17:53)
[2024-08-15] MEDS: STERILE WATER FOR INJECTION 10 ML IV ×3 (01:25→17:54)
[2024-08-15] MEDS: NSS 1000 IV ×2 (04:34→16:30)
[2024-08-15] MEDS: SYNTHROID 100 MCG PO (06:22)
--- NOTE | 2024-08-15 07:29 | W.PN.HOSP.TC ---
Today's Communication/Plan
-
monitor renal function
IV fluid sensipar as per nephro
abx as per ID
rate control
glycemic control
Hold Eliquis d/t gross hematuria
Assessment / Plan
Assessment / Plan
Physical Exam
Gen- No acute distress, appears comfortable at this time
HEENT-NC, AT, anicteric, clear oral mm
Neck-supple
CV-reg, no M, +S1/S2
Lungs-clear B/L
Abd-soft, NT, Escobedo catheter in place with dark urine output
Musculoskeletal-bilateral lower extremity edema, no deformity
Skin-warm and dry
Neuro- AOx3 conversant coherent
Psych- Calm cooperative
Ms. Pace is a 79-year-old female with a medical history of A-fib (on Eliquis), lower extremity venous insufficiency and lymphedema, NIDDM, CKD stage IIIb, hypertension, GERD, hypothyroidism, asthma, Sjogren's syndrome, ulcerative colitis, kidney
stones, chronic ambulatory dysfunction (wheelchair-bound), pulmonary nodules, and CROW who presented with hematuria. She has also been experiencing dysuria and vague back and pelvic pain. CT imaging shows a 7.5 mm stone in the right UPJ with no
hydronephrosis. She has been started on antibiotics and IV fluids and admitted for further evaluation and management.
Right ureteral stone:
-Status post OR with urology 08/12 for right ureteral stent placement
-Escobedo catheter should remain in place at discharge, will be managed at home by visiting nurse
-Right ureteral stent has a string attached to urethra which should remain in place after Escobedo removal, escobedo removal anticipated 08/18 as per Urology
-Continue IV fluids and antibiotics with aztreonam considering multiple allergies
-ID eval appreciated cont aztreonam through 08/17 to complete 7 days abx
-Daughter notes patient has tolerated Doxycycline in past
-Pain control as needed
-Will need outpatient urology follow-up for stent removal
-hematuria likely exacerbated by Eliquis
FAVIAN on CKD stage IIIb
Hypercalcemia
Hyperparathyroidism
-Vit D wnl, discontinue further supplementation
-Renal function worsening
-Holding home Bumex for now
-Nephro eval appreciated cont IV hydration Sensipar
-Avoid ANKIT/ARB's, please note patient reports she was recently told by her PCP to stop taking losartan (was previously supposed to be taking only 50 mg daily, reduced from 100 mg daily, however was accidentally taking 100 mg instead following last
hospital discharge)
-Discontinue spironolactone, patient reports her PCP recently discontinued her home spironolactone, also need to avoid d/t hypercalcemia
NIDDM:
-Sliding scale insulin for now
-Appears to be on Januvia and metformin at home
-Accu-Cheks
-Recommend close follow-up with her PCP after hospital discharge to revisit diabetic regimen and adjust as needed considering her CKD
Persistent A-fib:
-Continue home diltiazem 240 mg p.o. 3 times daily for rate control
-Eliquis on hold d/t gross hematuria
Hypothyroidism:
-Continue home levothyroxine 100 mcg daily
Hypertension:
Hypotension resolved
-Holding losartan, which patient reports was discontinued recently by her PCP, should not be continued at discharge
Lower extremity venous insufficiency and lymphedema:
-Holding Bumex for now while giving IV fluids after urologic procedure, progressive FAVIAN, hypercalcemia
Constipation
-08/15/24 large bowel movement, possible fecal impaction resolved
-cont stool softeners senna colace to maintain regular bowel movements, hold if diarrhea
-prn miralax bisacodyl
CODE STATUS: Full code
Discussed with patient, patient's Alphonso, and patient's daughter Iesha
I spent a total of 40 minutes with the patient or on the floor. More than 50% of this time involved counseling and coordination of care.
Anticipated Discharge: > 48 hours
Subjective/Interval History
-
Date of Service: August 15, 2024
Objective Data
-
Labs:
Laboratory Results
08/15/24
07:14
WBC Pending
Hgb Pending
Hct Pending
Plt Count Pending
Sodium Pending
Potassium Pending
Chloride Pending
Carbon Dioxide Pending
BUN Pending
Creatinine Pending
Glucose Pending
Calcium Pending
Vital Signs:
Vital Signs
Temp Pulse Resp BP Pulse Ox
97.7 F 85 14 121/76 97
08/15/24 03:40 08/15/24 03:40 08/15/24 03:40 08/15/24 03:40 08/15/24 03:40
I&O
08/14/24 08/15/24 08/16/24
06:59 06:59 06:59
Intake Total 1080 / 1080 480 / 480
Output Total 100 / 100 1750 / 1750
Balance 980 / 980 -1270 / -1270
[2024-08-15] MEDS: PULMICORT 0.5 MG INH (07:30)
[2024-08-15 08:14] LABS: Hematocrit 33.8 % (37.0-47.0); Hemoglobin 10.7 g/dL (12.0-16.0); Mean Corp Hgb Conc. 31.7 g/dL (33.0-37.0); Mean Corpuscular Hgb 26.6 pg (27.0-31.0); Mean Corpuscular Volume 83.9 fL (81.0-99.0); Mean Platelet Volume 11.5 fL (7.4-10.4); Platelet Count 288 10^3/uL (130-400); Red Blood Cell Count 4.03 10^6/uL (4.20-5.40); Red Cell Dist. Width 16.3 % (11.5-14.5); White Blood Cell Count 7.7 10^3/uL (4.8-10.8)
[2024-08-15 08:15] LABS: Glucose - Point of Care 101 mg/dl (70-99)
[2024-08-15] MEDS: NOVOLOG FLEXPEN-LOW RESISTANCE SC (08:16)
[2024-08-15 08:59] LABS: Blood Urea Nitrogen 51 mg/dl (7-17); Calcium 10.8 mg/dl (8.4-10.2); Carbon Dioxide 25 mmol/L (22-30); Chloride 102 mmol/L (98-107); Estimated Creatinine Clearance 44 ml/min; Glucose 112 mg/dl (70-99); Magnesium 2.2 mg/dl (1.6-2.3); Phosphorus 3.5 mg/dl (2.5-4.5); Potassium 4.9 mmol/L (3.5-5.1); Sodium 136 mmol/L (135-145); eGFR 42.09
[2024-08-15] MEDS: SENOKOT-S 1 TABLET PO ×2 (08:59→21:00)
[2024-08-15] MEDS: CARDIZEM CD 240 MG PO ×3 (08:59→21:25)
[2024-08-15] MEDS: PROTONIX 40 MG PO (08:59)
[2024-08-15] MEDS: MIRALAX 17 GRAMS PO (09:01)
[2024-08-15] MEDS: MAG-TAB SR 84 MG PO (09:01)
[2024-08-15] MEDS: VITAMIN B-12 1000 MCG PO (09:01)
[2024-08-15] MEDS: TRIAMCINOLONE ACETONIDE 0.1% CREAM 1 APPLIC TOPICAL (09:02)
--- NOTE | 2024-08-15 09:02 | W.PN.URO.CBU ---
Today's Communication / Plan
-
keep escobedo expect hematuria do not remove escobedo stent tied to escobedo
Assessment / Plan
-
stable for d/c with foleyonce medically stable eval of pth 112
cotinue escobedo will remove wednesday
Diagnosis
-
Date of Service: August 15, 2024
-
Patient Diagnosis:
Post Op Day:
Patient Diagnosis:
Post Op Day:
Patient Diagnosis:
Post Op Day:
Patient Diagnosis:
Post Op Day:
Patient Diagnosis:rt upj stone 7 mm with mild hydro hematuria on eliquis no fevr chillss/p u/sl/s removal has stent
Post Op Day:
Subjective
-
has escobedo and hematuria as expected with stent and escobedo on apixaban
Objective
-
Vital Signs
Temp Pulse Resp BP Pulse Ox
98.2 F 74 16 113/41 94
08/15/24 07:25 08/15/24 07:34 08/15/24 07:34 08/15/24 07:25 08/15/24 07:34
Intake and Output
08/14/24 08/15/24 08/16/24
06:59 06:59 06:59
Intake Total 1080 / 1080 480 / 480
Output Total 100 / 100 1750 / 1750
Balance 980 / 980 -1270 / -1270
Intake:
Oral fluids 1080 / 1080 480 / 480
Output:
Urine, Escobedo 100 / 100 1750 / 1750
Laboratory Results
08/15/24 07:14
08/15/24 07:14
Review of Systems
-
: Bleeding
Physical Exam
-
General - well developed, well nourished, no acute distress
Chest - clear bilaterally
Abdomen - soft, non-tender, positive bowel sounds, no CVAT, no incisional pain or distention
Genitalia - normal
Rectal - normal
Skin - warm & dry with no rash
Neuro - AOx3, no motor deficits
Extremities - no clubbing, no cyanosis, no edema
Incision - clean, dry
Dressing - clean, dry, intact
Care Review
Data Reviewed
Discussed with: Nursing
--- NOTE | 2024-08-15 11:13 | PN.CDI ---
CDI
- -
CDI:
Physician Documentation Request
Admit Date: 08/11/24 17:23
Dear Doctor Fanny,
Patient presented with hematuria and dysuria to ED. Patient take Eliquis for afib, which was held.
Please clarify if a relationship exist between these conditions:
Yes, hematuria is related to/associated with/due to/exacerbated by Eliquis
No,hematuria is not related to/associated with/due to/exacerbated by Eliquis
Unable to determine
Use of terms such as suspected, likely, concern for, or probable (associated with a specific diagnosis that is being evaluated, monitored, or treated as if it exists) are acceptable and can be coded in the inpatient setting, when documented at the
time of discharge.
Thank you,
Sahara Sam RN, BSN
CDI Specialist
tiger text
Please use your independent medical judgment in providing your response.
--- NOTE | 2024-08-15 11:19 | PN.CDI ---
CDI
- -
CDI:
Physician Documentation Request
Admit Date: 08/11/24 17:23
Dear Doctor Fanny,
Patient has a history of atrial fibrillation, take Eliquis as outpatient.
H&P refers to the atrial fib as paroxysmal.
Cardiology notes state 'persistent'
In an attempt to clarify potentially conflicting documentation, please clarify the type of atrial fibrillation:
Paroxysmal atrial fibrillation - terminates spontaneously or with intervention within 7 days of onset
Persistent atrial fibrillation - episodes of continuous AF that last more than 7 days and do not self-terminate
Other - please specify
Use of terms such as suspected, likely, concern for, or probable (associated with a specific diagnosis that is being evaluated, monitored, or treated as if it exists) are acceptable and can be coded in the inpatient setting, when documented at the
time of discharge.
Thank you,
Sahara Sam RN, BSN
CDI Specialist
tiger text
Please use your independent medical judgment in providing your response.
[2024-08-15 12:14] LABS: Glucose - Point of Care 206 mg/dl (70-99)
[2024-08-15] MEDS: NOVOLOG FLEXPEN-LOW RESISTANCE 2 UNITS SC (12:18)
--- NOTE | 2024-08-15 14:26 | W.PN.NEPH.PH ---
Today's Communication / Plan
-
IV fluids
Start Sensipar
Assessment/Plan
-
79 year old female with history of renal stones, UC, DM2, class III obesity who presented here 08/11 for dysuria, abdominl pain, hematuria and passage of clots while urinating. On eliquis for Afib.
Renal consult for hypercalcemia and acute kidney injury.
she was found to have a 7.5 mm calculus at the right ureteral pelvic junction, she was taken to the OR and underwent Right ureteroscopy, laser lithotripsy of stone, stone extraction with basket, right double-J stent placement
Currently has a Lock catheter and is nonoliguric.
Her creatinine 1.8 with a calcium of 11.5.
Her baseline creatinine is 0.9-1.1.
She was recently hospitalized July 2024 for CHF, COPD and CROW and was discharged with a creatinine as 1.1. At that time her calcium was 11.1 with PTH of 88.
On this admission her PTH is 112. She was discharged on spironolactone and loop diuretic.
Impression.
Acute kidney injury on chronic kidney disease stage IIIa baseline creatinine 1.1.
Creatinine on admission 1.3.
Creatinine on consultation status post lithotripsy with stent 1.8.
Hypercalcemia 11.8.
CHF with preserved ejection fraction moderate aortic stenosis
CROW morbid obesity.
Diabetes.
Plan.
Acuity multifactorial from renal calculi and hypercalcemia.
Maintain Lock catheter with tied stent
Would avoid thiazide diuretics and spironolactone for now with hypercalcemia.
PTH elevated in the setting of CKD, FAVIAN.= Reviewing records calcium elevated going back to 2019 per records
In light of her renal stone and the hypercalcemia which appears to be ongoing we will need to address the hypercalcemia.
Will temporize calcium with Sensipar started today
Will check SPEP and UPEP
Avoid vitamin D supplements
Continue IV fluid
Ultimately will need to restart her diuretic
Discussed with the patient and her at length regarding the calcium elevation dating back to 2019 and she is uncertain if that has been worked up
A.m. labs
-
-
Date of Service: August 15, 2024
CC / HPI / ROS
-
Chief Complaint:
Acute kidney injury
History of Present Illness:
FAVIAN secondary to renal calculi and chronic hypercalcemia
Review of Systems:
No chest pain or shortness of breath/Lock catheter nonoliguric still with hematuria
Labs
-
Labs:
WBC 7.7 10^3/uL (4.8-10.8) 08/15/24 07:14
RBC 4.03 10^6/uL (4.20-5.40) L 08/15/24 07:14
Hgb 10.7 g/dL (12.0-16.0) L 08/15/24 07:14
Hct 33.8 % (37.0-47.0) L 08/15/24 07:14
Plt Count 288 10^3/uL (130-400) 08/15/24 07:14
Sodium 136 mmol/L (135-145) 08/15/24 07:14
Potassium 4.9 mmol/L (3.5-5.1) 08/15/24 07:14
Chloride 102 mmol/L (98-107) 08/15/24 07:14
Carbon Dioxide 25 mmol/L (22-30) 08/15/24 07:14
BUN 51 mg/dl (7-17) H 08/15/24 07:14
Creatinine 1.3 mg/dL (0.6-1.0) H 08/15/24 07:14
eGFR 42.09 08/15/24 07:14
Glucose 112 mg/dl (70-99) H 08/15/24 07:14
Calcium 10.8 mg/dl (8.4-10.2) H 08/15/24 07:14
Phosphorus 3.5 mg/dl (2.5-4.5) 08/15/24 07:14
Albumin 3.6 g/dl (3.5-5.0) 08/14/24 08:02
Physical Exam
-
Vital Signs:
Vital Signs
Temp Pulse Resp BP Pulse Ox
98.1 F 98 20 97/67 91
08/15/24 11:25 08/15/24 11:25 08/15/24 11:25 08/15/24 11:25 08/15/24 11:25
Respiratory:: Bilateral: CTA
Lung Excursion:: Normal
Abdomen:: Soft
Bowel Sounds:: Normal
Extremity Edema:: +1: Bilateral:
Lock Catheter: Yes
--- NOTE | 2024-08-15 15:56 | W.PN.ID1 ---
Date of Service
Date of Service: August 15, 2024
Today's Communication
- stated allergies/reactions and renal function greatly limits treatment options
- c/w aztreonam, plan a 7 day course of treatment 08/11-08/17,
Assessment / Plan
Suspected Pyelonephritis due to obsturcting renal stone
s/p lithotripsy 08/12
FAVIAN
Stated allergies to: Penicillin - hives, Keflex - throat closed, clarithromycin - hives, levofloxacin - dyspnea, vancomycin dyspnea, latex - rash
- will need to see renal function stabilize prior to finalizing antibiotic regimen
- urine culture prior to relief of obstruction with 30 K mixed terrie
- stated allergies/reactions and renal function greatly limits treatment options
- c/w aztreonam, plan a 7 day course of treatment 08/11-08/17
Chief Complaint
-: UTI
Subjective / Review of Systems
afebrile
bp overall stable
no events overnight
Vital Signs / Physical Exam
Vital Signs
Vital Signs
Temp Pulse Resp BP Pulse Ox
98.1 F 98 20 97/67 91
08/15/24 11:25 08/15/24 11:25 08/15/24 11:25 08/15/24 11:25 08/15/24 11:25
Physical Exam
Constitutional: No Acute Distress, Chronically Ill and Obese
Cardiovascular: Regular Rate and S1/S2; Negative Murmur or Rub
Pulmonary: Clear and Symmetric; Negative Wheezes, Rales or Rhonchi
Gastrointestinal: Soft, Non Tender, Non Distended and Normal Bowel Sounds
Genito-Urinary: Other (does complain of pain over the R groin); Negative Suprapubic Tenderness or CVA Tenderness
Skin: Warm and Dry; Negative Rash or Jaundice
Objective Data
Lab Data
Lab Results
08/15/24 07:14
03/18/25 07:14
Estimated Creat Clear 44 ml/min 08/15/24 07:14
Total Bilirubin 0.6 mg/dl (0.2-1.3) 08/14/24 08:02
AST 16 U/L (14-36) 08/14/24 08:02
ALT 14 U/L (0-35) 08/14/24 08:02
Alkaline Phosphatase 187 U/L (38-126) H 08/14/24 08:02
Most recent labs reviewed.
Micro Results:
08/11/24 12:09 Urine Culture - Final
Urine
[2024-08-15 16:18] LABS: Glucose - Point of Care 165 mg/dl (70-99)
[2024-08-15] MEDS: SINGULAIR 10 MG PO (16:27)
[2024-08-15] MEDS: LIPITOR 10 MG PO (16:28)
[2024-08-15] MEDS: SENSIPAR 30 MG PO (16:29)
[2024-08-15] MEDS: NOVOLOG FLEXPEN-LOW RESISTANCE 1 UNITS SC (16:35)
[2024-08-15 21:20] LABS: Glucose - Point of Care 118 mg/dl (70-99)
[2024-08-15] MEDS: XALATAN OPHTHALMIC SOLUTION 1 DROP BOTH EYES (21:28)
[2024-08-15 23:07] LABS: Stone Analysis Mass 10 mg
[2024-08-16] MEDS: STERILE WATER FOR INJECTION 10 ML IV ×3 (00:58→17:42)
[2024-08-16] MEDS: AZACTAM 1000 MG IV ×3 (00:58→17:42)
[2024-08-16 03:39] VITALS: BP 128/86
--- NOTE | 2024-08-16 04:23 | DOWNTIME ---
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 Downtime documentation of patient's care, including medication administrations, has been reconciled in the electronic record per guidelines. Refer to the
patient's paper chart under the miscellaneous tab to see printed paper medication records and downtime forms.
[2024-08-16] MEDS: NSS 1000 IV (04:26)
[2024-08-16 06:00] VITALS: BMI 49.3
[2024-08-16] MEDS: SYNTHROID 100 MCG PO (06:07)
[2024-08-16 06:31] LABS: Hematocrit 31.8 % (37.0-47.0); Mean Corp Hgb Conc. 31.4 g/dL (33.0-37.0); Mean Corpuscular Hgb 26.4 pg (27.0-31.0); Mean Corpuscular Volume 83.9 fL (81.0-99.0); Mean Platelet Volume 11.3 fL (7.4-10.4); Platelet Count 257 10^3/uL (130-400); Red Blood Cell Count 3.79 10^6/uL (4.20-5.40); Red Cell Dist. Width 16.4 % (11.5-14.5); White Blood Cell Count 5.9 10^3/uL (4.8-10.8)
[2024-08-16 06:53] LABS: Blood Urea Nitrogen 34 mg/dl (7-17); Calcium 10.2 mg/dl (8.4-10.2); Carbon Dioxide 23 mmol/L (22-30); Chloride 108 mmol/L (98-107); Estimated Creatinine Clearance 64 ml/min; Glucose 113 mg/dl (70-99); Potassium 4.6 mmol/L (3.5-5.1); Sodium 140 mmol/L (135-145); eGFR > 60.00
--- NOTE | 2024-08-16 06:54 | W.PN.HOSP.TC ---
Today's Communication/Plan
-
monitor renal function
sensipar as per nephro
abx as per ID
rate control
glycemic control
Assessment / Plan
Assessment / Plan
Physical Exam
Gen- No acute distress, appears comfortable at this time
HEENT-NC, AT, anicteric, clear oral mm
Neck-supple
CV-reg, no M, +S1/S2
Lungs-clear B/L
Abd-soft, NT, Lock catheter in place with gross hematuria though appears bingo floater from prior
Musculoskeletal-bilateral lower extremity edema, no deformity
Skin-warm and dry
Neuro- AOx3 conversant coherent
Psych- Calm cooperative
Ms. Pace is a 79-year-old female with a medical history of A-fib (on Eliquis), HFpEF, lower extremity venous insufficiency and lymphedema, NIDDM, CKD stage IIIb, hypertension, GERD, hypothyroidism, asthma, Sjogren's syndrome, ulcerative colitis,
kidney stones, chronic ambulatory dysfunction (wheelchair-bound), pulmonary nodules, and CROW who presented with hematuria. She has also been experiencing dysuria and vague back and pelvic pain. CT imaging shows a 7.5 mm stone in the right UPJ with
no hydronephrosis. She has been started on antibiotics and IV fluids and admitted for further evaluation and management.
Right ureteral stone:
-Status post OR with urology 08/12 for right ureteral stent placement
-Lock removal anticipated 08/18 Fri as per Urology
-Continue IV fluids and antibiotics with aztreonam considering multiple allergies
-ID eval appreciated cont aztreonam through 08/17 to complete 7 days abx
-Daughter notes patient has tolerated Doxycycline in past
-Pain control as needed
-hematuria likely exacerbated by Eliquis
FAVIAN on CKD stage IIIb
Hypercalcemia
Hyperparathyroidism
-Vit D wnl, discontinue further supplementation
-FAVIAN resolved
-Home Bumex resumed
-Nephro eval appreciated cont Sensipar
-Avoid ANKIT/ARB's, please note patient reports she was recently told by her PCP to stop taking losartan (was previously supposed to be taking only 50 mg daily, reduced from 100 mg daily, however was accidentally taking 100 mg instead following last
hospital discharge)
-Discontinue spironolactone, patient reports her PCP recently discontinued her home spironolactone, also need to avoid d/t hypercalcemia
NIDDM:
-Sliding scale insulin for now
-Appears to be on Januvia and metformin at home
-Accu-Cheks
-Recommend close follow-up with her PCP after hospital discharge to revisit diabetic regimen and adjust as needed considering her CKD
Persistent A-fib:
-Continue home diltiazem 240 mg p.o. 3 times daily for rate control
-Eliquis on hold d/t gross hematuria
Hypothyroidism:
-Continue home levothyroxine 100 mcg daily
Hypertension:
Hypotension resolved
-Holding losartan, which patient reports was discontinued recently by her PCP, should not be continued at discharge
Lower extremity venous insufficiency and lymphedema
HFpEF
-Bumex resumed as above
-daily weight I/O
Constipation
-08/15/24 large bowel movement, possible fecal impaction resolved
-cont stool softeners senna colace to maintain regular bowel movements, hold if diarrhea
-prn miralax bisacodyl
CODE STATUS: Full code
Discussed with patient, patient's Alphonso, and patient's daughter Iesha
I spent a total of 40 minutes with the patient or on the floor. More than 50% of this time involved counseling and coordination of care.
Anticipated Discharge: 24 - 48 hours
Subjective/Interval History
-
Date of Service: August 16, 2024
episode right flank pain in morning resolved with prn morphine. Patient since no acute distress, comfortable. Hematuria persists but appears to be bingo floater compared to prior.
Objective Data
-
Labs:
Laboratory Results
08/16/24
05:48
WBC 5.9
Hgb 10.0 L
Hct 31.8 L
Plt Count 257
Sodium 140
Potassium 4.6
Chloride 108 H
Carbon Dioxide 23
BUN 34 H
Creatinine 0.9
Glucose 113 H
Calcium 10.2
Vital Signs:
Vital Signs
Temp Pulse Resp BP Pulse Ox
98.3 F 94 18 128/86 95
08/16/24 03:39 08/16/24 03:39 08/16/24 03:39 08/16/24 03:39 08/16/24 03:39
I&O
08/14/24 08/15/24 08/16/24
06:59 06:59 06:59
Intake Total 1080 / 1080 480 / 480
Output Total 100 / 100 1750 / 1750 800 / 800
Balance 980 / 980 -1270 / -1270 -800 / -800
[2024-08-16 07:25] VITALS: BP 129/86
[2024-08-16 07:44] LABS: Glucose - Point of Care 108 mg/dl (70-99)
[2024-08-16] MEDS: PULMICORT 0.5 MG INH (08:25)
[2024-08-16] MEDS: NOVOLOG FLEXPEN-LOW RESISTANCE SC (08:50)
[2024-08-16] MEDS: MAG-TAB SR PO (08:58)
[2024-08-16] MEDS: PROTONIX PO (08:58)
[2024-08-16] MEDS: VITAMIN B-12 1000 MCG PO (08:58)
[2024-08-16] MEDS: SENOKOT-S PO (08:58)
[2024-08-16] MEDS: CARDIZEM CD PO (08:58)
[2024-08-16] MEDS: SENSIPAR 30 MG PO (08:59)
[2024-08-16] MEDS: TRIAMCINOLONE ACETONIDE 0.1% CREAM 1 APPLIC TOPICAL (08:59)
[2024-08-16] MEDS: CARDIZEM CD 240 MG PO ×3 (09:16→21:14)
[2024-08-16] MEDS: SENOKOT-S 1 TABLET PO ×2 (09:17→21:13)
[2024-08-16] MEDS: MAG-TAB SR 84 MG PO (09:19)
[2024-08-16] MEDS: PROTONIX 40 MG PO (09:19)
[2024-08-16] MEDS: NSS IV (10:27)
[2024-08-16] MEDS: MORPHINE SULFATE 2 MG IV (10:52)
--- NOTE | 2024-08-16 11:17 | W.PN.NEPH.PH ---
Today's Communication / Plan
-
Follow BMP
Assessment/Plan
-
79 year old female with history of renal stones, UC, DM2, class III obesity who presented here 08/11 for dysuria, abdominl pain, hematuria and passage of clots while urinating. On eliquis for Afib.
Renal consult for hypercalcemia and acute kidney injury.
she was found to have a 7.5 mm calculus at the right ureteral pelvic junction, she was taken to the OR and underwent Right ureteroscopy, laser lithotripsy of stone, stone extraction with basket, right double-J stent placement
Currently has a Lock catheter and is nonoliguric.
Her creatinine 1.8 with a calcium of 11.5.
Her baseline creatinine is 0.9-1.1.
She was recently hospitalized July 2024 for CHF, COPD and CROW and was discharged with a creatinine as 1.1. At that time her calcium was 11.1 with PTH of 88.
On this admission her PTH is 112. She was discharged on spironolactone and loop diuretic.
Impression.
Acute kidney injury on chronic kidney disease stage IIIa baseline creatinine 1.1.
Creatinine on admission 1.3.
Creatinine on consultation status post lithotripsy with stent 1.8.
Hypercalcemia 11.8.
CHF with preserved ejection fraction moderate aortic stenosis
CROW morbid obesity.
Diabetes.
Plan.
Slightly elevated PTH with hypercalcemia is highly suggestive of primary hyperparathyroidism
She will require endocrinology follow-up as an outpatient with likely parathyroid scan
While neck surgery is typically not recommended in patients over 70 years of age, with significant stone disease and significant hypercalcemia surgery could be considered. I do not believe her performance status is that poor
Continue Sensipar
Await SPEP and UPEP
Restart Bumex
IV fluids
-
-
Date of Service: August 16, 2024
CC / HPI / ROS
-
Chief Complaint:
Acute kidney injury
History of Present Illness:
FAVIAN/creatinine down to 0.9
Calcium normal 10.2
Blood pressure stable
Review of Systems:
Complains of weight gain
No chest pain or shortness of breath/Lock catheter nonoliguric still with hematuria
Labs
-
Labs:
WBC 5.9 10^3/uL (4.8-10.8) 08/16/24 05:48
RBC 3.79 10^6/uL (4.20-5.40) L 08/16/24 05:48
Hgb 10.0 g/dL (12.0-16.0) L 08/16/24 05:48
Hct 31.8 % (37.0-47.0) L 08/16/24 05:48
Plt Count 257 10^3/uL (130-400) 08/16/24 05:48
Sodium 140 mmol/L (135-145) 08/16/24 05:48
Potassium 4.6 mmol/L (3.5-5.1) 08/16/24 05:48
Chloride 108 mmol/L (98-107) H 08/16/24 05:48
Carbon Dioxide 23 mmol/L (22-30) 08/16/24 05:48
BUN 34 mg/dl (7-17) H 08/16/24 05:48
Creatinine 0.9 mg/dL (0.6-1.0) 08/16/24 05:48
eGFR > 60.00 08/16/24 05:48
Glucose 113 mg/dl (70-99) H 08/16/24 05:48
Calcium 10.2 mg/dl (8.4-10.2) 08/16/24 05:48
Phosphorus 3.0 mg/dl (2.5-4.5) 08/16/24 05:48
Albumin 3.6 g/dl (3.5-5.0) 08/14/24 08:02
Physical Exam
-
Vital Signs:
Vital Signs
Temp Pulse Resp BP Pulse Ox
98.1 F 100 16 129/86 93
08/16/24 07:25 08/16/24 09:16 08/16/24 08:20 08/16/24 09:16 08/16/24 08:20
[2024-08-16 11:21] LABS: Glucose - Point of Care 152 mg/dl (70-99)
[2024-08-16 11:26] VITALS: BP 123/81
[2024-08-16] MEDS: BUMEX 1 MG PO (12:05)
[2024-08-16] MEDS: NOVOLOG FLEXPEN-LOW RESISTANCE 1 UNITS SC ×2 (12:30→17:45)
--- NOTE | 2024-08-16 13:38 | W.PN.URO.CBU ---
Today's Communication / Plan
-
if falnk pain persists call hospitalist for [facility] fr renal only u/s
Assessment / Plan
-
stable for d/c with foleyonce medically stable eval of pth 112
cotinue escobedo will remove wednesday flank pain persist will need renal u/s possible clot colic from stent possible stent pain but n fever nl wbc and creatinine low as ever
Diagnosis
-
Date of Service: August 16, 2024
-
Patient Diagnosis:
Post Op Day:
Patient Diagnosis:
Post Op Day:
Patient Diagnosis:
Post Op Day:
Patient Diagnosis:
Post Op Day:
Patient Diagnosis:
Post Op Day:
Patient Diagnosis:rt upj stone 7 mm with mild hydro hematuria on eliquis no fevr chillss/p u/sl/s removal has stent has new onset rt flank pain
Post Op Day:
Subjective
-
rt flank pain
Objective
-
Vital Signs
Temp Pulse Resp BP Pulse Ox
98 F 85 18 123/81 97
08/16/24 11:26 08/16/24 12:05 08/16/24 11:26 08/16/24 12:05 08/16/24 11:26
Intake and Output
08/15/24 08/16/24 08/17/24
06:59 06:59 06:59
Intake Total 480 / 480 1920 / 1920
Output Total 1750 / 1750 800 / 800 1025 / 1025
Balance -1270 / -1270 -800 / -800 895 / 895
Intake:
Oral fluids 480 / 480 720 / 720
IV fluids (Total) 1200 / 1200
Output:
Urine, Escob[place] 1750 / 1750 800 / 800 1025 / 1025
Laboratory Results
08/16/24 05:48
08/16/24 05:48
Review of Systems
-
: Flank Pain and Bleeding
Physical Exam
-
General - well developed, well nourished, no acute distress
Chest - clear bilaterally
Abdomen - soft, non-tender, positive bowel sounds, no CVAT, no incisional pain or distention
Genitalia - normal
Rectal - normal
Skin - warm & dry with no rash
Neuro - AOx3, no motor deficits
Extremities - no clubbing, no cyanosis, no edema
Incision - clean, dry
Dressing - clean, dry, intact
Care Review
Data Reviewed
Discussed with: Hospitalist
[2024-08-16 15:30] VITALS: BP 122/84
[2024-08-16 16:42] LABS: Glucose - Point of Care 171 mg/dl (70-99)
--- NOTE | 2024-08-16 16:54 | W.PN.ID1 ---
Date of Service
Date of Service: August 16, 2024
Today's Communication
- c/w aztreonam, plan a 7 day course of treatment 08/11-08/17
Assessment / Plan
Suspected Pyelonephritis due to obstructing renal stone
s/p lithotripsy 08/12
FAVIAN
Stated allergies to: Penicillin - hives, Keflex - throat closed, clarithromycin - hives, levofloxacin - dyspnea, vancomycin dyspnea, latex - rash
- urine culture prior to relief of obstruction with 30 K mixed terrie
- stated allergies/reactions and renal function greatly limits treatment options
- c/w aztreonam, plan a 7 day course of treatment 08/11-08/17
Chief Complaint
-: UTI
Subjective / Review of Systems
afebrile
bp stable
no complaints
Vital Signs / Physical Exam
Vital Signs
Vital Signs
Temp Pulse Resp BP Pulse Ox
98 F 96 20 122/84 97
08/16/24 15:30 08/16/24 15:30 08/16/24 15:30 08/16/24 15:30 08/16/24 15:30
Physical Exam
Constitutional: No Acute Distress, Chronically Ill and Obese
Cardiovascular: Regular Rate and S1/S2; Negative Murmur or Rub
Pulmonary: Clear and Symmetric; Negative Wheezes, Rales or Rhonchi
Gastrointestinal: Soft, Non Tender, Non Distended and Normal Bowel Sounds
Genito-Urinary: Negative Suprapubic Tenderness
Skin: Warm and Dry; Negative Rash or Jaundice
Objective Data
Lab Data
Lab Results
08/16/24 05:48
08/16/24 05:48
Estimated Creat Clear 64 ml/min 08/16/24 05:48
Total Bilirubin 0.6 mg/dl (0.2-1.3) 08/14/24 08:02
AST 16 U/L (14-36) 08/14/24 08:02
ALT 14 U/L (0-35) 08/14/24 08:02
Alkaline Phosphatase 187 U/L (38-126) H 08/14/24 08:02
Most recent labs reviewed.
Micro Results:
08/11/24 12:09 Urine Culture - Final
Urine
[2024-08-16] MEDS: SINGULAIR 10 MG PO (17:42)
[2024-08-16] MEDS: LIPITOR 10 MG PO (17:42)
[2024-08-16] MEDS: XALATAN OPHTHALMIC SOLUTION 1 DROP BOTH EYES (21:15)
[2024-08-16 22:02] LABS: Glucose - Point of Care 132 mg/dl (70-99)
[2024-08-16 23:54] VITALS: BP 134/86
[2024-08-17] MEDS: AZACTAM 1000 MG IV ×3 (02:37→17:58)
[2024-08-17] MEDS: STERILE WATER FOR INJECTION 10 ML IV ×3 (02:37→17:59)
[2024-08-17 06:00] VITALS: BMI 48.5
[2024-08-17] MEDS: SYNTHROID 100 MCG PO (06:08)
[2024-08-17] MEDS: PULMICORT 0.5 MG INH (07:12)
--- NOTE | 2024-08-17 07:20 | W.PN.HOSP.TC ---
Today's Communication/Plan
-
Lock/stent removal as per Urology
Last day abx
resume Eliquis tonight
Assessment / Plan
Assessment / Plan
Physical Exam
Gen- No acute distress, appears comfortable at this time
HEENT-NC, AT, anicteric, clear oral mm
Neck-supple
CV-reg, no M, +S1/S2
Lungs-clear B/L
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
Musculoskeletal-bilateral lower extremity edema, no deformity
Skin-warm and dry
Neuro- AOx3 conversant coherent
Psych- Calm cooperative
Ms. Pace is a 79-year-old female with a medical history of A-fib (on Eliquis), HFpEF, lower extremity venous insufficiency and lymphedema, NIDDM, CKD stage IIIb, hypertension, GERD, hypothyroidism, asthma, Sjogren's syndrome, ulcerative colitis,
kidney stones, chronic ambulatory dysfunction (wheelchair-bound), pulmonary nodules, and CROW who presented with hematuria. She has also been experiencing dysuria and vague back and pelvic pain. CT imaging shows a 7.5 mm stone in the right UPJ with
no hydronephrosis. She has been started on antibiotics and IV fluids and admitted for further evaluation and management.
Right ureteral stone:
-Status post OR with urology 08/12 for right ureteral stent placement
-Lock/stent removal 08/17 as per Urology
-Continue IV fluids and antibiotics with aztreonam considering multiple allergies
-ID eval appreciated cont aztreonam through 08/17 to complete 7 days abx
-Daughter notes patient has tolerated Doxycycline in past
-Pain control as needed
-hematuria likely exacerbated by Eliquis
FAVIAN on CKD stage IIIb
Hypercalcemia
Hyperparathyroidism
-Vit D wnl, discontinue further supplementation
-FAVIAN resolved
-Home Bumex resumed
-Nephro eval appreciated cont Sensipar
-Avoid ANKIT/ARB's, please note patient reports she was recently told by her PCP to stop taking losartan (was previously supposed to be taking only 50 mg daily, reduced from 100 mg daily, however was accidentally taking 100 mg instead following last
hospital discharge)
-Discontinue spironolactone, patient reports her PCP recently discontinued her home spironolactone, also need to avoid d/t hypercalcemia
NIDDM:
-Sliding scale insulin for now
-Appears to be on Januvia and metformin at home
-Accu-Cheks
-Recommend close follow-up with her PCP after hospital discharge to revisit diabetic regimen and adjust as needed considering her CKD
Persistent A-fib:
-Continue home diltiazem 240 mg p.o. 3 times daily for rate control
-Eliquis held d/t gross hematuria while on Lock
-resumed following improvement in hematuria and Lock/stent removal
Hypothyroidism:
-Continue home levothyroxine 100 mcg daily
Hypertension:
Hypotension resolved
-Holding losartan, which patient reports was discontinued recently by her PCP, should not be continued at discharge
Lower extremity venous insufficiency and lymphedema
HFpEF
-Bumex resumed as above
-daily weight I/O
Constipation
-08/15/24 large bowel movement, possible fecal impaction resolved
-cont stool softeners senna colace to maintain regular bowel movements, hold if diarrhea
-prn miralax bisacodyl
CODE STATUS: Full code
Discussed with patient and patient's Alphonso
I spent a total of 40 minutes with the patient or on the floor. More than 50% of this time involved counseling and coordination of care.
Anticipated Discharge: Within 24 hours
Subjective/Interval History
-
Date of Service: August 17, 2024
Objective Data
-
Labs:
Laboratory Results
08/17/24
07:00
WBC Pending
Hgb Pending
Hct Pending
Plt Count Pending
Sodium Pending
Potassium Pending
Chloride Pending
Carbon Dioxide Pending
BUN Pending
Creatinine Pending
Glucose Pending
Calcium Pending
Vital Signs:
Vital Signs
Temp Pulse Resp BP Pulse Ox
97.4 F 76 16 134/86 94
08/16/24 23:54 08/17/24 07:16 08/17/24 07:16 08/16/24 23:54 08/17/24 07:16
I&O
08/16/24 08/17/24 08/18/24
06:59 06:59 06:59
Intake Total 2880 / 2880
Output Total 800 / 800 3025 / 4625 1600 / 1600
Balance -800 / -800 -145 / -1745 -1600 / -1600
[2024-08-17 07:32] VITALS: BP 143/75
[2024-08-17 07:50] LABS: Glucose - Point of Care 118 mg/dl (70-99)
--- NOTE | 2024-08-17 08:17 | W.PN.URO.CBU ---
Today's Communication / Plan
-
remove escobedo inspect for stent if just escobedo call tiger text dr glass
Assessment / Plan
-
stable as pt on iv abs and stable dwain remove escobedo and see if stent attached
Diagnosis
-
Date of Service: August 17, 2024
-
Patient Diagnosis:
Post Op Day:
Patient Diagnosis:
Post Op Day:
Patient Diagnosis:
Post Op Day:
Patient Diagnosis:
Post Op Day:
Patient Diagnosis:
Post Op Day:
Patient Diagnosis:
Post Op Day:
Patient Diagnosis:rt upj stone 7 mm with mild hydro hematuria on eliquis no fevr chillss/p u/sl/s removal has stent has new onset rt flank pain
Post Op Day:
Subjective
-
hemturia and occasional flank pain
Objective
-
Vital Signs
Temp Pulse Resp BP Pulse Ox
97.4 F 76 16 134/86 94
08/16/24 23:54 08/17/24 07:16 08/17/24 07:16 08/16/24 23:54 08/17/24 07:16
Intake and Output
08/16/24 08/17/24 08/18/24
06:59 06:59 06:59
Intake Total 2880 / 2880
Output Total 800 / 800 3025 / 4625 1600 / 1600
Balance -800 / -800 -145 / -1745 -1600 / -1600
Intake:
Oral fluids 1680 / 1680
IV fluids (Total) 1200 / 1200
Output:
Urine, [place]ob[place] 800 / 800 3025 / 4625 1600 / 1600
Review of Systems
-
: Flank Pain, Difficulty Voiding and Bleeding
Physical Exam
-
General - well developed, well nourished, no acute distress
Chest - clear bilaterally
Abdomen - soft, non-tender, positive bowel sounds, no CVAT, no incisional pain or distention
Genitalia - normal
Rectal - normal
Skin - warm & dry with no rash
Neuro - AOx3, no motor deficits
Extremities - no clubbing, no cyanosis, no edema
Incision - clean, dry
Dressing - clean, dry, intact
Care Review
Data Reviewed
Discussed with: Nursing
[2024-08-17 08:33] LABS: Hemoglobin 10.7 g/dL (12.0-16.0); Mean Corp Hgb Conc. 31.5 g/dL (33.0-37.0); Mean Corpuscular Hgb 26.2 pg (27.0-31.0); Mean Corpuscular Volume 83.3 fL (81.0-99.0); Mean Platelet Volume 11.1 fL (7.4-10.4); Platelet Count 276 10^3/uL (130-400); Red Blood Cell Count 4.08 10^6/uL (4.20-5.40); Red Cell Dist. Width 16.4 % (11.5-14.5); White Blood Cell Count 6.9 10^3/uL (4.8-10.8)
[2024-08-17 08:55] LABS: Blood Urea Nitrogen 24 mg/dl (7-17); Calcium 10.1 mg/dl (8.4-10.2); Carbon Dioxide 25 mmol/L (22-30); Chloride 105 mmol/L (98-107); Estimated Creatinine Clearance 82 ml/min; Glucose 124 mg/dl (70-99); Magnesium 1.6 mg/dl (1.6-2.3); Phosphorus 3.4 mg/dl (2.5-4.5); Potassium 4.1 mmol/L (3.5-5.1); Sodium 140 mmol/L (135-145); eGFR > 60.00
[2024-08-17] MEDS: BUMEX 1 MG PO (09:09)
[2024-08-17] MEDS: PROTONIX 40 MG PO (09:10)
[2024-08-17] MEDS: CARDIZEM CD 240 MG PO ×3 (09:10→21:41)
[2024-08-17] MEDS: MAG-TAB SR 84 MG PO (09:10)
[2024-08-17] MEDS: SENSIPAR 30 MG PO (09:10)
[2024-08-17] MEDS: SENOKOT-S PO ×2 (09:11→09:16)
[2024-08-17] MEDS: VITAMIN B-12 1000 MCG PO (09:11)
[2024-08-17] MEDS: TRIAMCINOLONE ACETONIDE 0.1% CREAM 1 APPLIC TOPICAL (09:12)
[2024-08-17] MEDS: NOVOLOG FLEXPEN-LOW RESISTANCE SC (09:12)
[2024-08-17] MEDS: ZOFRAN 4 MG IV (12:13)
[2024-08-17 12:20] LABS: Glucose - Point of Care 158 mg/dl (70-99)
--- NOTE | 2024-08-17 12:28 | W.PN.NEPH.PH ---
Today's Communication / Plan
-
Follow BMP
Assessment/Plan
-
79 year old female with history of renal stones, UC, DM2, class III obesity who presented here 08/11 for dysuria, abdominl pain, hematuria and passage of clots while urinating. On eliquis for Afib.
Renal consult for hypercalcemia and acute kidney injury.
she was found to have a 7.5 mm calculus at the right ureteral pelvic junction, she was taken to the OR and underwent Right ureteroscopy, laser lithotripsy of stone, stone extraction with basket, right double-J stent placement
Currently has a Lock catheter and is nonoliguric.
Her creatinine 1.8 with a calcium of 11.5.
Her baseline creatinine is 0.9-1.1.
She was recently hospitalized July 2024 for CHF, COPD and CROW and was discharged with a creatinine as 1.1. At that time her calcium was 11.1 with PTH of 88.
On this admission her PTH is 112. She was discharged on spironolactone and loop diuretic.
Impression.
Acute kidney injury on chronic kidney disease stage IIIa baseline creatinine 1.1.
Creatinine on admission 1.3.
Creatinine on consultation status post lithotripsy with stent 1.8.
Hypercalcemia 11.8.
CHF with preserved ejection fraction moderate aortic stenosis
CROW morbid obesity.
Diabetes.
Plan.
Slightly elevated PTH with hypercalcemia is highly suggestive of primary hyperparathyroidism
She will require endocrinology follow-up as an outpatient with likely parathyroid scan
While neck surgery is typically not recommended in patients over 70 years of age, with significant stone disease and significant hypercalcemia surgery could be considered. I do not believe her performance status is that poor
Continue Sensipar
Check SPEP and UPEP
Continue Bumex
-
-
Date of Service: August 17, 2024
CC / HPI / ROS
-
Chief Complaint:
Acute kidney injury
History of Present Illness:
FAVIAN/creatinine down to 0.7
Calcium normal 10.1
Blood pressure stable
Review of Systems:
No chest pain or shortness of breath/Lock catheter nonoliguric still with hematuria
Labs
-
Labs:
WBC 6.9 10^3/uL (4.8-10.8) 08/17/24 07:00
RBC 4.08 10^6/uL (4.20-5.40) L 08/17/24 07:00
Hgb 10.7 g/dL (12.0-16.0) L 08/17/24 07:00
Hct 34.0 % (37.0-47.0) L 08/17/24 07:00
Plt Count 276 10^3/uL (130-400) 08/17/24 07:00
Sodium 140 mmol/L (135-145) 08/17/24 07:00
Potassium 4.1 mmol/L (3.5-5.1) 08/17/24 07:00
Chloride 105 mmol/L (98-107) 08/17/24 07:00
Carbon Dioxide 25 mmol/L (22-30) 08/17/24 07:00
BUN 24 mg/dl (7-17) H 08/17/24 07:00
Creatinine 0.7 mg/dL (0.6-1.0) 08/17/24 07:00
eGFR > 60.00 08/17/24 07:00
Glucose 124 mg/dl (70-99) H 08/17/24 07:00
Calcium 10.1 mg/dl (8.4-10.2) 08/17/24 07:00
Phosphorus 3.4 mg/dl (2.5-4.5) 08/17/24 07:00
Albumin 3.6 g/dl (3.5-5.0) 08/14/24 08:02
Physical Exam
-
Vital Signs:
Vital Signs
Temp Pulse Resp BP Pulse Ox
98.6 F 108 20 143/75 96
08/17/24 07:32 08/17/24 09:09 08/17/24 07:32 08/17/24 09:09 08/17/24 09:00
Cardiovascular:: Regular rate and rhythm
Respiratory:: Bilateral: Coarse
Lung Excursion:: Normal
Abdomen:: Nontender and Soft
Bowel Sounds:: Normal
Extremity Edema:: +2: Bilateral:
[2024-08-17] MEDS: NOVOLOG FLEXPEN-LOW RESISTANCE 1 UNITS SC (13:39)
--- NOTE | 2024-08-17 14:05 | W.PN.ID1 ---
Date of Service
Date of Service: August 17, 2024
Today's Communication
final day of aztreonam
Assessment / Plan
Suspected Pyelonephritis due to obstructing renal stone
s/p lithotripsy 08/12
FAVIAN
Stated allergies to: Penicillin - hives, Keflex - throat closed, clarithromycin - hives, levofloxacin - dyspnea, vancomycin dyspnea, latex - rash
- urine culture prior to relief of obstruction with 30 K mixed terrie
- stated allergies/reactions and renal function greatly limits treatment options
- c/w aztreonam, plan a 7 day course of treatment 08/11-08/17 - final day
Chief Complaint
-: UTI
Subjective / Review of Systems
afebrile
bp stable
tolerating current therapies
groin pain essentially resolved with removal of stent
Vital Signs / Physical Exam
Vital Signs
Vital Signs
Temp Pulse Resp BP Pulse Ox
98.6 F 108 20 143/75 96
08/17/24 07:32 08/17/24 09:09 08/17/24 07:32 08/17/24 09:09 08/17/24 09:00
Physical Exam
Constitutional: No Acute Distress, Chronically Ill and Obese
Cardiovascular: Regular Rate and S1/S2; Negative Murmur or Rub
Pulmonary: Clear and Symmetric; Negative Wheezes, Rales or Rhonchi
Gastrointestinal: Soft, Non Tender, Non Distended and Normal Bowel Sounds
Genito-Urinary: Negative Suprapubic Tenderness
Skin: Warm and Dry; Negative Rash or Jaundice
Objective Data
Lab Data
Lab Results
08/17/24 07:00
08/17/24 07:00
Estimated Creat Clear 82 ml/min 08/17/24 07:00
Total Bilirubin 0.6 mg/dl (0.2-1.3) 08/14/24 08:02
AST 16 U/L (14-36) 08/14/24 08:02
ALT 14 U/L (0-35) 08/14/24 08:02
Alkaline Phosphatase 187 U/L (38-126) H 08/14/24 08:02
Most recent labs reviewed.
Micro Results:
08/11/24 12:09 Urine Culture - Final
Urine
--- NOTE | 2024-08-17 15:30 | PTCARENOTE ---
Pt has voided 425ml of blood tinged urine since escobedo catheter removed at 1228 today, will continue to monitor.
[2024-08-17 15:52] VITALS: BP 114/70
[2024-08-17 16:29] LABS: Glucose - Point of Care 209 mg/dl (70-99)
[2024-08-17 17:55] VITALS: BP 107/79
[2024-08-17] MEDS: NOVOLOG FLEXPEN-LOW RESISTANCE 2 UNITS SC (17:57)
[2024-08-17] MEDS: SINGULAIR 10 MG PO (17:59)
[2024-08-17] MEDS: LIPITOR 10 MG PO (17:59)
[2024-08-17] MEDS: FLUSH (NSS) 2 FLUSH IV (18:00)
--- NOTE | 2024-08-17 18:07 | PTCARENOTE ---
Addendum entered by Tomasa Melara 08/17/24 19:40:
Went to administer ordered Benadryl and pt states that she doesn't feel like she needs it anymore. Updated retail shift leader RN in report to follow.
Original Note:
Pt complaining of tingling around lips, eyes burning and tongue tingling after eating too much pineapple per pt. She states that she is sensitive to pineapple. No SOB, no difficulty breathing. SPO2 93% on RA. BP 107/79, HR 102. No noted rash.
Discussed with Dr. Escobedo, see new orders for Benadryl and Refresh eye drops. Updated pt and her on plan, will monitor closely.
[2024-08-17] MEDS: REFRESH EYE DROPS (PF) 1 DROPS OPHTH (18:22)
[2024-08-17] MEDS: ELIQUIS 5 MG PO (19:49)
[2024-08-17] MEDS: XALATAN OPHTHALMIC SOLUTION 1 DROP BOTH EYES (21:43)
[2024-08-17 22:01] LABS: Glucose - Point of Care 112 mg/dl (70-99)
[2024-08-17 23:25] VITALS: BP 131/83
[2024-08-18 04:37] VITALS: BMI 48.2
[2024-08-18] MEDS: SYNTHROID 100 MCG PO (05:40)
[2024-08-18 06:17] LABS: Hematocrit 35.6 % (37.0-47.0); Hemoglobin 11.1 g/dL (12.0-16.0); Mean Corp Hgb Conc. 31.2 g/dL (33.0-37.0); Mean Corpuscular Hgb 26.1 pg (27.0-31.0); Mean Corpuscular Volume 83.6 fL (81.0-99.0); Mean Platelet Volume 11.1 fL (7.4-10.4); Platelet Count 257 10^3/uL (130-400); Red Blood Cell Count 4.26 10^6/uL (4.20-5.40); Red Cell Dist. Width 16.4 % (11.5-14.5); White Blood Cell Count 7.1 10^3/uL (4.8-10.8)
[2024-08-18 06:41] LABS: Blood Urea Nitrogen 24 mg/dl (7-17); Calcium 9.7 mg/dl (8.4-10.2); Carbon Dioxide 28 mmol/L (22-30); Chloride 101 mmol/L (98-107); Estimated Creatinine Clearance 71 ml/min; Glucose 124 mg/dl (70-99); Magnesium 1.4 mg/dl (1.6-2.3); Potassium 3.7 mmol/L (3.5-5.1); Sodium 138 mmol/L (135-145); eGFR > 60.00
[2024-08-18] MEDS: PULMICORT 0.5 MG INH (07:09)
--- NOTE | 2024-08-18 07:18 | W.PN.HOSP.TC ---
Addendum entered and electronically signed by Dulce Escobedo MD 08/18/24 14:05:
Correction to Documentation. CKD 3 ruled out, FAVIAN resolved
Original Note:
Today's Communication/Plan
-
discharge
Assessment / Plan
Assessment / Plan
Physical Exam
Gen- No acute distress, appears comfortable at this time
HEENT-NC, AT, anicteric, clear oral mm
Neck-supple
CV-reg, no M, +S1/S2
Lungs-clear B/L
Abd-soft, NT, Bowel sounds present
Musculoskeletal-bilateral lower extremity edema, no deformity
Skin-warm and dry
Neuro- AOx3 conversant coherent
Psych- Calm cooperative
Ms. Pace is a 79-year-old female with a medical history of A-fib (on Eliquis), HFpEF, lower extremity venous insufficiency and lymphedema, NIDDM, CKD stage IIIb, hypertension, GERD, hypothyroidism, asthma, Sjogren's syndrome, ulcerative colitis,
kidney stones, chronic ambulatory dysfunction (wheelchair-bound), pulmonary nodules, and CROW who presented with hematuria. She has also been experiencing dysuria and vague back and pelvic pain. CT imaging shows a 7.5 mm stone in the right UPJ with
no hydronephrosis. She has been started on antibiotics and IV fluids and admitted for further evaluation and management.
Right ureteral stone:
-Status post OR with urology 08/12 right ureteral stent placement
-Lock/stent removal 08/17 as per Urology
-ID eval appreciated 08/17 completed 7 days aztreonam abx
-hematuria likely exacerbated by Eliquis
FAVIAN on CKD stage IIIb
Hypercalcemia
Hyperparathyroidism
-Vit D wnl, discontinue further supplementation
-FAVIAN resolved
-Home Bumex resumed
-Nephro eval appreciated cont Sensipar
-Avoid ANKIT/ARB's, please note patient reports she was recently told by her PCP to stop taking losartan (was previously supposed to be taking only 50 mg daily, reduced from 100 mg daily, however was accidentally taking 100 mg instead following last
hospital discharge)
-Discontinue spironolactone, patient reports her PCP recently discontinued her home spironolactone, also need to avoid d/t hypercalcemia
NIDDM:
-Sliding scale insulin for now
-resume home Januvia and metformin
-Accu-Cheks
Persistent A-fib:
-Continue home diltiazem 240 mg p.o. 3 times daily for rate control
-Eliquis held d/t gross hematuria while on Lock
-resumed following improvement in hematuria and Lock/stent removal, later placed back on hold d/t persistent gross hematuria
-will start baby ASA while Eliquis is on hold for hematuria, patient to discontinue when restarting Eliquis
Hypothyroidism:
-Continue home levothyroxine 100 mcg daily
Hypertension:
Hypotension resolved
-Holding losartan, which patient reports was discontinued recently by her PCP, should not be continued at discharge
Lower extremity venous insufficiency and lymphedema
HFpEF
-Bumex resumed as above
-daily weight I/O
Constipation Resolved
-08/15/24 large bowel movement, possible fecal impaction resolved
-stool softeners switched to prn
Hypomagnesemia
-repletion provided
CODE STATUS: Full code
Medically stable for discharge home with home services and outpatient follow up recommendations.
Discussed with patient and patient's Alphonso
Total Time Preparing Discharge ___50____ minutes including examination of the patient, summary of the hospital stay, instructions for continuing care to all relevant caregivers; and preparation of discharge records, prescriptions, and referral
forms if necessary.
Anticipated Discharge: Today
Subjective/Interval History
-
Date of Service: August 18, 2024
reports loose stool. hematuria persists. Patient otherwise looking forward to going home. Alphonso present during evaluation.
Objective Data
-
Labs:
Laboratory Results
08/18/24
05:54
WBC 7.1
Hgb 11.1 L
Hct 35.6 L
Plt Count 257
Sodium 138
Potassium 3.7
Chloride 101
Carbon Dioxide 28
BUN 24 H
Creatinine 0.8
Glucose 124 H
Calcium 9.7
Vital Signs:
Vital Signs
Temp Pulse Resp BP Pulse Ox
98.3 F 102 20 131/83 92
08/17/24 23:25 08/17/24 23:25 08/17/24 23:25 08/17/24 23:25 08/17/24 23:25
I&O
08/17/24 08/18/24 08/19/24
06:59 06:59 06:59
Intake Total 2880 / 2880 1160 / 1160
Output Total 9105 / 7923 3825 / 3825
Balance -145 / -1745 -9585 / -8090
[2024-08-18 07:35] VITALS: BP 145/79
[2024-08-18 08:18] LABS: Glucose - Point of Care 121 mg/dl (70-99)
[2024-08-18] MEDS: NOVOLOG FLEXPEN-LOW RESISTANCE SC ×2 (08:36→11:57)
[2024-08-18] MEDS: CARDIZEM CD 240 MG PO (08:45)
[2024-08-18] MEDS: ELIQUIS 5 MG PO (08:45)
[2024-08-18] MEDS: PROTONIX 40 MG PO (08:46)
[2024-08-18] MEDS: BUMEX 1 MG PO (08:46)
[2024-08-18] MEDS: MAG-TAB SR 84 MG PO (08:46)
[2024-08-18] MEDS: VITAMIN B-12 1000 MCG PO (08:46)
[2024-08-18] MEDS: SENSIPAR 30 MG PO (08:46)
[2024-08-18] MEDS: TRIAMCINOLONE ACETONIDE 0.1% CREAM 1 APPLIC TOPICAL (08:47)
[2024-08-18] MEDS: MAGNESIUM SULFATE 100 IV (09:56)
--- NOTE | 2024-08-18 11:13 | CM ---
Addendum entered by Stefanie Deleon 08/18/24 13:27:
tentatively continuous pickling line pickler helper 3:30-4:00
Addendum entered by Stefanie Deleon 08/18/24 13:25:
Patient updated with cost of wheelchair van 105.00 and phone number to call to arrange payment [phone]. CM will continue to follow for discharge planning needs.
Original Note:
Patient seen at bedside with spouse. Patient indicated that she wanted to go home today. IMM provided and signed form placed on chart. Patient may need wheelchair van and [facility] to follow for patient needs. Per patient daughterly companions
will be at her home today at 5pm. CM will continue to follow for discharge planning needs.
Plan;home with [facility] and Daughterly companions.
[2024-08-18 11:54] LABS: Glucose - Point of Care 138 mg/dl (70-99)
[2024-08-18] MEDS: MYLICON 80 MG PO (12:01)
--- NOTE | 2024-08-18 12:03 | PTCARENOTE ---
MD order to stop bag of IV magnesium after only receiving ~1 gram
--- NOTE | 2024-08-18 13:17 | W.PN.NEPH.PH ---
Today's Communication / Plan
-
Okay for discharge from renal standpoint
Assessment/Plan
-
79 year old female with history of renal stones, UC, DM2, class III obesity who presented here 08/11 for dysuria, abdominl pain, hematuria and passage of clots while urinating. On eliquis for Afib.
Renal consult for hypercalcemia and acute kidney injury.
she was found to have a 7.5 mm calculus at the right ureteral pelvic junction, she was taken to the OR and underwent Right ureteroscopy, laser lithotripsy of stone, stone extraction with basket, right double-J stent placement
Currently has a Lock catheter and is nonoliguric.
Her creatinine 1.8 with a calcium of 11.5.
Her baseline creatinine is 0.9-1.1.
She was recently hospitalized July 2024 for CHF, COPD and CROW and was discharged with a creatinine as 1.1. At that time her calcium was 11.1 with PTH of 88.
On this admission her PTH is 112. She was discharged on spironolactone and loop diuretic.
Impression.
Acute kidney injury on chronic kidney disease stage IIIa baseline creatinine 1.1.
Creatinine on admission 1.3.
Creatinine on consultation status post lithotripsy with stent 1.8.
Hypercalcemia 11.8.
CHF with preserved ejection fraction moderate aortic stenosis
CROW morbid obesity.
Diabetes.
Plan.
Slightly elevated PTH with hypercalcemia is highly suggestive of primary hyperparathyroidism
She will require endocrinology follow-up as an outpatient with likely parathyroid scan
While neck surgery is typically not recommended in patients over 70 years of age, with significant stone disease and significant hypercalcemia surgery could be considered. I do not believe her performance status is that poor
Continue Sensipar
Check SPEP and UPEP= pending could follow as an outpatient
Continue Bumex
-
-
Date of Service: August 18, 2024
CC / HPI / ROS
-
Chief Complaint:
Acute kidney injury
History of Present Illness:
FAVIAN/creatinine down to 0.7
Calcium normal 10.1
Blood pressure stable
Review of Systems:
No chest pain or shortness of breath/Lock catheter nonoliguric still with hematuria
Labs
-
Labs:
WBC 7.1 10^3/uL (4.8-10.8) 08/18/24 05:54
RBC 4.26 10^6/uL (4.20-5.40) 08/18/24 05:54
Hgb 11.1 g/dL (12.0-16.0) L 08/18/24 05:54
Hct 35.6 % (37.0-47.0) L 08/18/24 05:54
Plt Count 257 10^3/uL (130-400) 08/18/24 05:54
Sodium 138 mmol/L (135-145) 08/18/24 05:54
Potassium 3.7 mmol/L (3.5-5.1) 08/18/24 05:54
Chloride 101 mmol/L (98-107) 08/18/24 05:54
Carbon Dioxide 28 mmol/L (22-30) 08/18/24 05:54
BUN 24 mg/dl (7-17) H 08/18/24 05:54
Creatinine 0.8 mg/dL (0.6-1.0) 08/18/24 05:54
eGFR > 60.00 08/18/24 05:54
Glucose 124 mg/dl (70-99) H 08/18/24 05:54
Calcium 9.7 mg/dl (8.4-10.2) 08/18/24 05:54
Phosphorus 4.0 mg/dl (2.5-4.5) 08/18/24 05:54
Albumin 3.6 g/dl (3.5-5.0) 08/14/24 08:02
Physical Exam
-
Vital Signs:
Vital Signs
Temp Pulse Resp BP Pulse Ox
98.6 F 110 18 145/79 97
08/18/24 07:35 08/18/24 07:35 08/18/24 07:35 08/18/24 08:45 08/18/24 12:05
Cardiovascular:: Regular rate and rhythm
Respiratory:: Bilateral: Coarse
Lung Excursion:: Normal
Abdomen:: Nontender and Soft
Bowel Sounds:: Normal
Extremity Edema:: +2: Bilateral:
--- NOTE | 2024-08-18 14:42 | W.DCSUMMARY ---
Discharge Summary
Discharge Data
Date of Admission: 08/11/24
Date of Discharge: 08/18/24
-
Pending Results: Yes
Additional Pending Results:
SPEP UPEP results to be followed with nephrology
Discharge Plan
-
Patient Disposition: Home with Home Care
Discharge Diagnosis/Procedures: Impacted right ureteral stone, Lock Stent treatment completed
Complicated Urinary Tract Infection
Acute Kidney Injury
Diabetes
Atrial Fibrillation
Hypothyroidism
Lower extremity venous insufficiency and lymphedema
Heart Failure with Preserved Ejection Fraction
Hypomagnesemia
Pulmonary nodules posterior lower Lung lobes (follow up CT chest in 1 month recommended)
Nonspecific hyperdense/calcified lesion within the left adnexa measuring 2.4 cm possible fibroid vs calcified ovarian lesion (follow up pelvic US in one month recommended)
Condition: Fair
Diet: Diabetic, Carb Controlled
Activity: As tolerated
Driving Restrictions: Not until seen by your Dr
Bathing Restrictions: None
Blood Work: Repeat Magnesium level, CBC, and BMP coming Mon or Tue, results to be forwarded to Primary Care Provider. Script provided to facilitate
Others Tests: Obtain CT chest with primary care provider in 1 month of discharge to follow up pulmonary nodules
Obtain pelvic ultrasound with primary care provider in 1 month of discharge to follow up left adnexa 2.4 cm lesion
Other Services: VN
Specialty Instructions: Weigh Daily- Call MD for wt gain/loss 3 lbs overnight/5 lbs in 1 week
Activity Restrictions/Additional Instructions:
Please follow up with primary care provider in 1 week of discharge, malt roaster and urologist in 2 weeks of discharge, and Copier Operator and Applied Research Director in 2-4 weeks of discharge.
Ms. Pace is a 79-year-old female with a medical history of A-fib (on Eliquis), lower extremity venous insufficiency and lymphedema, heart failure with preserved ejection fraction, NIDDM, hypertension, GERD, hypothyroidism, asthma, Sjogren's
syndrome, ulcerative colitis, kidney stones, chronic ambulatory dysfunction (wheelchair-bound), pulmonary nodules, and CROW who presented with hematuria and dysuria. CT imaging showed a 7.5 mm stone in the right UPJ with no hydronephrosis. She was
started on antibiotics and IV fluids and admitted for further evaluation and management.
She was taken to the OR on 08/12 with urology for right ureteral stent placement. She tolerated the procedure well. Lock and stent were eventually removed prior to discharge after completing a course of IV antibiotics due to complicated UTI and
multiple allergies. Her home dose Eliquis remains on hold due Hematuria. Aspirin has been prescribed while Eliquis is on hold- to be discontinued when hematuria resolves and Eliquis is resumed.
She had Acute kidney injury that has since resolved.
Hospital course was also complicated with hypercalcemia likely hyperparathyroidism for which she is recommended to follow up with outpatient Copier Operator and Applied Research Director. Hypercalcemia has since resolved with start of new medication Sensipar
and discontinuation Vit D supplementation and Spironolactone. Discuss with primary care provider or other healthcare provider involved in care before considering to resume aforementioned medications.
Home Losartan was noted to have been recently discontinued by primary care provider. Blood pressure has been relatively well controlled without. Follow up with primary care provider or cardiology before considering to restart.
Referrals:
Swathi Mc MD [Consulting Staff] - in two to four weeks
Will Sanchez MD [Active] - in two weeks
Seth Cheng DO [Active] - in two to four weeks
Andreas Lake MD [Family Provider] - in one week
Eitan Bullock MD [Active] - in two weeks
Prescriptions:
New
aspirin 81 mg Tablet,Chewable
81 mg PO DAILY Qty: 30 0RF
cinacalcet 30 mg Tablet
30 mg PO DAILY Qty: 30 0RF
Continued
budesonide 0.5 mg/2 mL Suspension For Nebulization
0.5 mg INHALATION R DAILY
sodium chloride 0.65 % Aerosol,[place]
1 spray INTRANASAL TIDPRN PRN (Reason: dryness)
Soothe XP 1-4.5 % Drops
1 drp ophthalmic (eye) DAILYPRN PRN (Reason: both eyes)
cyanocobalamin (vitamin B-12) [Vitamin B-12] 1,000 mcg Tablet
1,000 mcg PO DAILY Qty: 0 0RF
bumetanide 1 mg tablet
1 mg PO DAILY Qty: 30 0RF
cetirizine 10 MG tablet
10 mg PO DAILY Qty: 0 0RF
atorvastatin 10 MG tablet
10 mg PO QPM 30 Days Qty: 30 0RF
diltiazem HCl 240 mg Capsule,Extended Release 24hr
240 mg PO TID Qty: 0 0RF
montelukast 10 mg Tablet
10 mg PO QPM Qty: 0 0RF
Januvia 100 MG tablet
100 mg PO DAILY Qty: 0 0RF
mesalamine 1.2 gram Tablet,Delayed Release (Dr/Ec)
2.4 g PO DAILY Qty: 0 0RF
travoprost 0.004 % Drops
1 drp BOTH EYES HS
triamcinolone acetonide 0.1 % Cream
1 applic TOPICAL DAILY
Patient Comments:
both legs
acetaminophen 650 mg Tablet Extended Release
650 mg PO DAILYPRN PRN (Reason: mild pain)
vitamin A and D Cream
1 applic TOPICAL DAILY
magnesium oxide 400 mg magnesium Tablet
400 mg PO DAILY
metformin 500 MG tablet
500 mg PO BID
levothyroxine 100 MCG tablet
100 mcg PO DAILY
pantoprazole 40 mg tablet,delayed release (DR/EC)
40 mg PO DAILY
Citrucel 500 mg tablet
250 mg PO HSPRN PRN (Reason: fiber suppliment)
triamcinolone acetonide [Nasacort] 55 mcg aerosol,spray
1 spray INTRANASAL HS
docusate sodium 100 mg capsule
100 mg PO DAILYPRN PRN (Reason: constipation)
Held
Eliquis 5 mg Tablet
5 mg PO BID Qty: 0 0RF
Hold Instructions: Resume when hematuria resolves. When restarting, stop baby aspirin.
Discontinued
cholecalciferol (vitamin D3) 1,000 UNITS tablet
1,000 unit PO Q48H Qty: 0 0RF
losartan 100 mg Tablet
100 mg PO DAILY
Patient Comments:
08/11/24-decrease dose at discharge but patient was not aware on 50mg daily dose so she kept taking 100mg daily
spironolactone
12.5 mg PO DAILY
Patient Comments:
Has been off this past week per PCP due to elevated creatinine
Discharge Orders:
Discharge Patient (As Directed); Ordered 08/18/24
Ordered By: Dulce Escobedo
Discharge Date and Time
Print Language: GEORGIAN
[2024-08-18 15:26] VITALS: BP 136/85
[2024-08-20 12:16] LABS: 24 Hour Urine Total Volume Random mL; Urine Collection Length Random hr; Urine Free Kappa Light Chains 17.61 mg/L (0.00-32.90); Urine Free Lambda Light Chains 2.91 mg/L (0.00-3.79)
[2024-08-22 00:39] LABS: Albumin 3.35 g/dL (3.75-5.01); Alpha 1 Globulin 0.37 g/dL (0.19-0.46); Alpha 2 Globulin 1.05 g/dL (0.48-1.05); SPEP IFE Reflex Not Done; Total Protein-Electrophoresis 6.9 g/dL (6.3-8.2)
== END 2024-08-18 16:15 | disposition home health service (06) | DRG 660 ==
LOC: 4 EAST ACU 17:23
PROVIDERS: Clinical Nurse Specialist Family Health; Specialist; ADMITTING PHYSICIAN Internal Medicine; ATTENDING PHYSICIAN Internal Medicine; CONSULT PHYSICIAN Internal Medicine Cardiovascular Disease; CONSULT PHYSICIAN Internal Medicine Nephrology; CONSULT PHYSICIAN Specialist; CONSULT PHYSICIAN Student in an Organized Health Care Education/Training Program; EMERGENCY PHYSICIAN Student in an Organized Health Care Education/Training Program; FAMILY PHYSICIAN Internal Medicine
PROC: 0TC38ZZ Extirpation of Matter from Right Kidney Pelvis, Via Natural or Artificial Opening Endoscopic (ICD-10-PCS; 2024-08-12)
PROC: 0T768DZ Dilation of Right Ureter with Intraluminal Device, Via Natural or Artificial Opening Endoscopic (ICD-10-PCS; 2024-08-12)
DX: N13.6 Pyonephrosis (principal); D68.32 Hemorrhagic disorder due to extrinsic circulating anticoagulants; I13.0 Hypertensive heart and chronic kidney disease with heart failure and stage 1 through stage 4 chronic kidney disease, or unspecified chronic kidney disease; I50.32 Chronic diastolic (congestive) heart failure; Z68.42 Body mass index [BMI] 45.0-49.9, adult; J96.12 Chronic respiratory failure with hypercapnia; I48.19 Other persistent atrial fibrillation; N17.9 Acute kidney failure, unspecified; N18.32 Chronic kidney disease, stage 3b; E11.22 Type 2 diabetes mellitus with diabetic chronic kidney disease; E03.9 Hypothyroidism, unspecified; E53.8 Deficiency of other specified B group vitamins; E55.9 Vitamin D deficiency, unspecified; E66.813 Obesity, class 3; E78.00 Pure hypercholesterolemia, unspecified; F32.A Depression, unspecified; G47.33 Obstructive sleep apnea (adult) (pediatric); I35.0 Nonrheumatic aortic (valve) stenosis; H40.9 Unspecified glaucoma; I89.0 Lymphedema, not elsewhere classified; I87.2 Venous insufficiency (chronic) (peripheral); K21.9 Gastro-esophageal reflux disease without esophagitis; K59.00 Constipation, unspecified; R31.9 Hematuria, unspecified; T45.515A Adverse effect of anticoagulants, initial encounter; M35.00 Sjogren syndrome, unspecified; N25.81 Secondary hyperparathyroidism of renal origin; R91.8 Other nonspecific abnormal finding of lung field; Z88.0 Allergy status to penicillin; Z88.1 Allergy status to other antibiotic agents; Z88.7 Allergy status to serum and vaccine; Z88.8 Allergy status to other drugs, medicaments and biological substances; Z79.01 Long term (current) use of anticoagulants; Z99.3 Dependence on wheelchair; Z87.891 Personal history of nicotine dependence; Z79.899 Other long term (current) drug therapy; Z79.890 Hormone replacement therapy; Z79.84 Long term (current) use of oral hypoglycemic drugs
CPT/HCPCS: 74018; 74176; 76000; 80048; 80053; 81003; 81015; 82306; 82365; 82962; 83521; 83735; 83970; 84100; 84155; 84156; 84165; 85025; 85027; 86335; 87086; 93005; 94640; 94660; 96374; 97163; 97167; 99285; A4300; C1894; C2617

== ENCOUNTER 2024-09-26 18:19 | Inpatient (IN) | payer OTHER, SELFPAY ==
[2024-09-26] VITALS (9 sets, daily range): BP systolic 134–152; BP diastolic 77–106; PULSE 111; BMI 51.2; BMI 50.6
--- NOTE | 2024-09-26 15:45 | ED.GENMED ---
History of Present Illness
General
Chief Complaint: Breathing Problem
Time Seen by Provider: 09/26/24 15:13
History of Present Illness
History of Present Illness:
Patient is a 79-year-old woman with history of CHF, COPD, A-fib on Eliquis presenting to the emergency department shortness of breath. Per chart review patient was admitted in July for CHF exacerbation as well as A-fib and pneumonia. She
states that they recently made some medication adjustments and they did double her Bumex dose. However despite this she has been having significant weight gain. She states that in July she was 263 when she was discharged and is to 79 pounds
today. She does feel that she is holding onto fluid. She is also had some chills and she did have sick contacts over Easter weekend. No chest pain. She has been compliant with her Eliquis though they did hold it last month for a few days
secondary to her kidney stone. Her visiting nurse did come to the home and noticed she was struggling to breathe and placed her on oxygen.
Phy Exam
Physical Exam
Physical Exam:
GENERAL: in no acute distress
HEENT: normocephalic, extraocular movements intact, moist oral mucosa
NECK: normal inspection
RESPIRATORY: no respiratory distress, fine crackles at bases bilaterally
CARDIOVASCULAR: regular rate and rhythm
ABDOMEN/: soft, non-distended, non-tender to palpation, no rebound or guarding
EXTREMITIES: non-tender, bilateral lower extremity swelling
NEUROLOGIC: awake and alert, moves all extremities
SKIN: warm
Scores
Heart Failure Risk
Heart Failure Risk Score: Yes
History of Stroke or TIA: No
History of intubation for respiratory distress: No
Heart rate on ED arrival >/= 110: No
SaO2 <90% on arrival on room air: Yes
HR >/=110 during 3min walk test (or too ill to perform test): Yes
ECG has acute ischemic changes: No
Urea >/=12mmol/L (BUN 33.6mg/dL): Yes
Serum CO2>/=35mmol/L: No
Troponin I or T elevated to [place] Level (0.4mg/dL): No
NT-proBNP >/=5,000ng/L (5,000pg/ml): No
HF Risk Score: 4
Admission Status: HIGH RISK 26.1% Consider SNF treatment or admission to hospital
Course
Orders/Labs/Results
Orders:
Orders
09/26/24 15:02
Electrocardiogram (*1) Urgent
Reason for Study: Shortness of Breath
09/26/24 15:03
EKG- Treatment ONCE
09/26/24 15:45
CR Chest - 2 Views Urgent
Comment:
Reason For Exam: sob
09/26/24 16:06
Basic Metabolic Panel Urgent
COVID-19 Antigen Urgent
Source: Nasal Swab
Complete Blood Count/With Diff Urgent
NT-proBNP Urgent
Troponin I Urgent
Influenza A+B Rapid Molecular Urgent
ANGEL Source: Nasal Swab
Specimen Description:
09/26/24 16:51
Bumetanide [Bumex] 1 mg IV NOW STA
Abnormal Lab Results
09/26/24
16:06
RBC 4.00 L 10^6/uL
(4.20-5.40)
Hgb 10.2 L g/dL
(12.0-16.0)
Hct 32.7 L %
(37.0-47.0)
MCH 25.5 L pg
(27.0-31.0)
MCHC 31.2 L g/dL
(33.0-37.0)
RDW 15.9 H %
(11.5-14.5)
MPV 11.0 H fL
(7.4-10.4)
Absolute Lymphs (auto) 0.9 L 10^3/uL
(1.2-3.4)
Neutrophils % 80.0 H %
(42.2-75.2)
Lymphocytes % 11.4 L %
(20.5-51.1)
Chloride 96 L mmol/L
(98-107)
Carbon Dioxide 33 H mmol/L
(22-30)
BUN 28 H mg/dl
(7-17)
Glucose 136 H mg/dl
(70-99)
09/26/24 16:06
09/26/24 16:06
Vital Signs
Initial and Last Documented VS:
Initial Vital Signs
BP Pulse Ox
134/77 96
09/26/24 15:01 09/26/24 15:01
Last Documented Vital Signs
Temp Pulse Resp BP Pulse Ox
98.1 F 118 19 138/86 97
09/26/24 15:15 09/26/24 17:15 09/26/24 15:15 09/26/24 17:10 09/26/24 17:15
MDM/Problems Addressed
Differential Diagnosis Includes:
Patient is a 79-year-old woman with history of CHF, COPD, A-fib on Eliquis presenting to the emergency department with shortness of breath. On arrival patient was placed on nasal cannula and did have a heart rate in the low 100s. Exam does show
fine crackles at the bases as well as bilateral pitting edema. Concern for CHF exacerbation versus viral illness or pneumonia. Considered PE since patient did miss a few doses of her Eliquis last month however less likely as patient has been
having some weight gain with crackles on exam. Will check blood work EKG chest x-ray. Patient will likely need admission.
*Critical Care Note
Total Time (30-74mins, 75-104mins- exclusive of procedures): Not Applicable
Update Note
Update Note:
EKG per my interpretation A-fib. Blood work does show elevated BNP. COVID flu negative. Normal white count. Will give patient IV Bumex. Discussed with hospitalist who accepted with chest x-ray pending.
ED Attending Note
-
Portions of this chart may have been created with voice recognition software.� Occasional wrong word or��sound alike� substitutions may have occurred due to the inherent limitations of voice recognition software.
Discharge Plan
Departure
Patient Disposition: Admit
Date of Disposition: 09/26/24
Time of Disposition: 17:40
Presentation/result/management discussed w/ accepting MD/DO: Hospitalist
Discharge Problem:
CHF exacerbation
Prescriptions:
No Action
budesonide 0.5 mg/2 mL Suspension For Nebulization
0.5 mg INHALATION R DAILY
sodium chloride 0.65 % Aerosol,Girdler
1 spray INTRANASAL TIDPRN PRN (Reason: dryness)
Soothe XP 1-4.5 % Drops
1 drp ophthalmic (eye) DAILYPRN PRN (Reason: both eyes)
cyanocobalamin (vitamin B-12) [Vitamin B-12] 1,000 mcg Tablet
1,000 mcg PO DAILY Qty: 0 0RF
bumetanide 1 mg tablet
1 mg PO DAILY Qty: 30 0RF
cetirizine 10 MG tablet
10 mg PO DAILY Qty: 0 0RF
atorvastatin 10 MG tablet
10 mg PO QPM 30 Days Qty: 30 0RF
diltiazem HCl 240 mg Capsule,Extended Release 24hr
240 mg PO TID Qty: 0 0RF
montelukast 10 mg Tablet
10 mg PO QPM Qty: 0 0RF
Januvia 100 MG tablet
100 mg PO DAILY Qty: 0 0RF
mesalamine 1.2 gram Tablet,Delayed Release (Dr/Ec)
2.4 g PO DAILY Qty: 0 0RF
Eliquis 5 mg Tablet
5 mg PO BID Qty: 0 0RF
travoprost 0.004 % Drops
1 drp BOTH EYES HS
triamcinolone acetonide 0.1 % Cream
1 applic TOPICAL DAILY
Patient Comments:
both legs
acetaminophen 650 mg Tablet Extended Release
650 mg PO DAILYPRN PRN (Reason: mild pain)
vitamin A and D Cream
1 applic TOPICAL DAILY
magnesium oxide 400 mg magnesium Tablet
400 mg PO DAILY
metformin 500 MG tablet
500 mg PO BID
levothyroxine 100 MCG tablet
100 mcg PO DAILY
pantoprazole 40 mg tablet,delayed release (DR/EC)
40 mg PO DAILY
Citrucel 500 mg tablet
250 mg PO HSPRN PRN (Reason: fiber suppliment)
triamcinolone acetonide [Nasacort] 55 mcg aerosol,spray
1 spray INTRANASAL HS
docusate sodium 100 mg capsule
100 mg PO DAILYPRN PRN (Reason: constipation)
aspirin 81 mg Tablet,Chewable
81 mg PO DAILY Qty: 30 0RF
cinacalcet 30 mg Tablet
30 mg PO DAILY Qty: 30 0RF
Referrals:
NONE,* [Family Provider] -
Interventions
Interventions:
*Risk Screen - Suicide Last Done: 09/26/24 15:15
*General Assessment Last Done: 09/26/24 15:15
*Neglect/Abuse Screening Last Done: 09/26/24 15:15
*ED- Fall Risk Assessment Last Done: 09/26/24 15:15
*ED COVID-19 Vaccine History Last Done: 09/26/24 15:15
ED- Cardiac Assessment Last Done: 09/26/24 15:20
ED- Pulmonary Assessment Last Done: 09/26/24 15:20
Discharge Date and Time
Print Language: SURINAMESE
[2024-09-26 16:20] LABS: % Basophils 0.6 % (0-2); % Eosinophils 1.5 % (0-6); % Immature Granulocytes 0.4 % (0-0.5); % Lymphocytes 11.4 % (20.5-51.1); % Monocytes 6.1 % (1.7-9.3); Absolute Basophils 0.1 10^3/uL (0-0.2); Absolute Eosinophils 0.1 10^3/uL (0-0.7); Absolute Lymphocytes 0.9 10^3/uL (1.2-3.4); Absolute Monocytes 0.5 10^3/uL (0.1-0.6); Absolute Neutrophils 6.4 10^3/uL (1.4-6.5); Hematocrit 32.7 % (37.0-47.0); Hemoglobin 10.2 g/dL (12.0-16.0); Mean Corp Hgb Conc. 31.2 g/dL (33.0-37.0); Mean Corpuscular Hgb 25.5 pg (27.0-31.0); Mean Corpuscular Volume 81.8 fL (81.0-99.0); Nucleated Red Blood Cells % 0 %; Platelet Count 314 10^3/uL (130-400); Red Cell Dist. Width 15.9 % (11.5-14.5)
[2024-09-26 16:32] LABS: Blood Urea Nitrogen 28 mg/dl (7-17); Calcium 8.8 mg/dl (8.4-10.2); Carbon Dioxide 33 mmol/L (22-30); Chloride 96 mmol/L (98-107); Estimated Creatinine Clearance 66 ml/min; Glucose 136 mg/dl (70-99); Potassium 3.8 mmol/L (3.5-5.1); Sodium 142 mmol/L (135-145); eGFR > 60.00
[2024-09-26 16:44] LABS: NT-proBNP 1430 pg/ml; Troponin I < 0.012 ng/ml
[2024-09-26 16:47] LABS: COVID-19 Antigen Negative (Negative)
[2024-09-26] MEDS: BUMEX 1 MG IV (17:09)
--- NOTE | 2024-09-26 17:43 | HPS.HSE ---
Family Physician
-
Family Physician: * NONE
Chief Complaint
-
sob
weight gain
LE edema
History of Present Illness
79-year-old woman with history of CHF, COPD, A-fib on Eliquis presenting to the emergency department shortness of breath. sob worse with exertion. patient also complained of orthopnea for one week. patient stated worsening LE edema and abdominal
edema. patient stated she was gaining 2lbs per day. denied chest pain. stated cough with productive brown colored sputum for one week. she is been using oxygen for past few days. she increased her Bumex to 1mg bid for past one week with no relief in
her symptoms. s Per chart review patient was admitted in July for CHF exacerbation as well as A-fib and pneumonia.
patient received Bumex in ER. admitting for further management.
Medical History
Past Medical History
Past Medical History: Reports Other
Additional Past Medical History:
lymphedema
cellulitsi
peripheral edema
venous stasis
sacral wound
CROW
venous stasis dermatitis
GERD
CROW
type 2 DM
bursitis of left shoulder
htn
asthma
ulcerative colitis
atrial fib
Past Surgical History: Reports Other
Additional Past Surgical History:
hysteroscopy
kidney stone removal
Social History
Tobacco: Former Smoker
Alcohol: None
Drug: None
Personal:
Living: With Family
Family History
Family History: Not pertinent
Allergies / Home Medications
Allergies reflects when Allergies were last updated in [facility].
Home Medications with original date entered in [facility]
Allergy/Medication List:
Allergies
Allergy/AdvReac Type Severity Reaction Status Date / Time
alendronate sodium Allergy esophagus Verified 09/26/24 15:14
[From Fosamax] spasms
cephalexin [From Keflex] Allergy throat Verified 09/26/24 15:14
closed
clarithromycin [From Biaxin] Allergy Hives Verified 09/26/24 15:14
erythromycin base Allergy Rash, Verified 09/26/24 15:14
diarrhea
fentanyl Allergy difficulty Verified 09/26/24 15:14
awakening
from
surgery
fish oil Allergy Unknown Verified 09/26/24 15:14
house dust Allergy sneeze Verified 09/26/24 15:14
hyoscyamine Allergy throat Verified 09/26/24 15:14
tightening
influenza virus vaccine, Allergy Unknown Verified 09/26/24 15:14
specific
Iodinated Contrast Media Allergy Unknown Verified 09/26/24 15:14
latex Allergy Rash Verified 09/26/24 15:14
levalbuterol [From Xopenex] Allergy 'bee sting Verified 09/26/24 15:14
sensation
all over'
levofloxacin [From Levaquin] Allergy difficulty Verified 09/26/24 15:14
breathing
mold Allergy rash/hives/ Verified 09/26/24 15:14
sob
nut - unspecified Allergy Unknown Verified 09/26/24 15:14
Penicillins Allergy Hives Verified 09/26/24 15:14
pneumococcal vaccine Allergy Rash Verified 09/26/24 15:14
shellfish derived Allergy hives/difficulty Verified 09/26/24 15:14
breathing
tetanus and diphtheria Allergy wheezing Verified 09/26/24 15:14
toxoids
vancomycin Allergy Shortness Verified 09/26/24 15:14
of Breath
Home Medications
budesonide 0.5 mg/2 mL suspension for nebulization 0.5 mg inhalation R DAILY 07/01/24
light mineral oil 1 %-mineral oil 4.5 % eye drops (Soothe XP) 1 drp ophthalmic (eye) DAILYPRN PRN both eyes 07/01/24
sodium chloride 0.65 % nasal spray aerosol 1 spray intranasal TIDPRN PRN dryness 07/01/24
apixaban 5 mg tablet (Eliquis) 5 mg PO BID Blood clot prevention/tx #0 tabs 07/14/24
atorvastatin 10 mg tablet 10 mg PO QPM High cholesterol 30 days #30 tabs 07/14/24
bumetanide 1 mg tablet 1 mg PO DAILY Fluid retention/Swelling #30 tabs 07/14/24
cetirizine 10 mg tablet 10 mg PO DAILY Allergies #0 tabs 07/14/24
cyanocobalamin (vitamin B-12) 1,000 mcg tablet (Vitamin B-12) 1,000 mcg PO DAILY Supplement #0 tabs 07/14/24
diltiazem HCl 240 mg capsule,extended release 24 hr 240 mg PO TID Arrhythmia #0 caps 07/14/24
mesalamine 1.2 gram tablet,delayed release 2.4 g (2 x 1.2 gram) PO DAILY Gastrointestinal issue #0 tabs 07/14/24
montelukast 10 mg tablet 10 mg PO QPM Allergies #0 tabs 07/14/24
sitagliptin phosphate 100 mg tablet (Januvia) 100 mg PO DAILY Diabetes #0 tabs 07/14/24
acetaminophen 650 mg tablet,extended release 650 mg PO DAILYPRN PRN mild pain 08/11/24
docusate sodium 100 mg capsule 100 mg PO DAILYPRN PRN constipation 08/11/24
levothyroxine 100 mcg tablet 100 mcg PO DAILY Thyroid 08/11/24
magnesium oxide 400 mg PO DAILY 08/11/24
metformin 500 mg tablet 500 mg PO BID Diabetes 08/11/24
methylcellulose (laxative) 500 mg tablet (Citrucel) 250 mg PO HSPRN PRN fiber suppliment 08/11/24
pantoprazole 40 mg tablet,delayed release 40 mg PO DAILY Gastrointestinal issue 08/11/24
travoprost 0.004 % eye drops 1 drp BOTH EYES HS 08/11/24
triamcinolone acetonide 0.1 % topical cream 1 applic topical DAILY both lower legs 08/11/24
triamcinolone acetonide 55 mcg nasal spray aerosol (Nasacort) 1 spray intranasal HS Congestion 08/11/24
vitamin A and D 1 applic topical DAILY b/l buttock sore 08/11/24
aspirin 81 mg chewable tablet 81 mg PO DAILY #30 tabs 08/18/24
cinacalcet 30 mg tablet 30 mg PO DAILY #30 tabs 08/18/24
Review of Systems
-
Constitutional: Reports Weight Gain
EENT: Reports No Symptoms
Respiratory: Reports Cough and Trouble Breathing
Cardiac: Reports No Symptoms
Abdomen/GI: Reports No Symptoms
: Reports No Symptoms
Musculoskeletal: Reports No Symptoms
Skin: Reports No Symptoms
Neurological: Reports No Symptoms
Endocrine: Reports No Symptoms
Hematologic/Lymphatic: Reports No Symptoms
Psych: Reports No Symptoms
Physical Exam
Vital Signs
Vital Signs
Temp Pulse Resp BP Pulse Ox
98.1 F 118 19 138/86 97
09/26/24 15:15 09/26/24 17:15 09/26/24 15:15 09/26/24 17:10 09/26/24 17:15
Physical Exam
General: Well Developed, Well Nourished and No Apparent Distress
HEENT: NormoCephalic, Moist mucous membranes and Atraumatic
Respiratory: Crackles
Cardiac: S1/S2 and Regular Rhythm; No Murmur or Rub
GI: Soft, Non Tender, Non Distended and Normal Bowel Sounds; No Organomegaly
Rectal: Deferred by Provider
Musculoskeletal: No Clubbing, No Cyanosis and Other (b/l LE edema)
Skin: No Rash
Neuro: AO x 3 and Nonfocal/grossly intact
Psych: Calm
Laboratory Results
-
09/26/24 16:06
09/26/24 16:06
Laboratory Results
Troponin I < 0.012 ng/ml 09/26/24 16:06
Data Reviewed
-
Diagnostic Radiology: Report Reviewed by me
Lab Data: Labs Reviewed by me
Impression/Plan
-
#acute hypoxic respiratory failure CHF exacerbation
-BNP 1430
-bumex continued
-strict I &O, daily weight, fluid restriction
-recent ECHO with EF of 65-70%
-cardiology consulted
-COVID.flu negative
-chest x ray pending
-patient is requiring 3l of oxygen
-continue supplemental oxygen to keep sat >92
-wean as tolerated
#CROW
-CPAP
# Hyperlipidemia
- statin continued
# History of asthma
- Singular continued, nebs from home continued
#anemia of chornic disease
-hgb stable at 10.2
-no active bleeding
-ctm
#NIDDM:
-Sliding scale insulin for now
-hold Januvia and metformin
-Accu-Cheks
#Persistent A-fib
-EKG with atrial fib
-Continue home diltiazem 240 mg p.o. 3 times daily for rate control
-Eliquis
#Hypothyroidism:
-Continue home levothyroxine 100 mcg daily
#Lower extremity venous insufficiency and lymphedema
CODE STATUS: Full code
--- NOTE | 2024-09-26 18:20 | W.PN.UPDATE ---
Update Note
Progress Note Update
This note serves as an addendum to the H&P by over hauler helper MARYLIN
Toshia BOBBY
HPI
79F morbid obesity, CROW, persistent AF on Eliquis, NIDDM, HTN, CKD3a, Hypercalcemia, primary hyperparathyroidism, Hypothyroid , mod , chr HFpEF, lower extremity venous insufficiency and lymphedema, , hypothyroidism, asthma, Sjogren's syndrome,
ulcerative colitis, kidney stones, chronic ambulatory dysfunction (wheelchair-bound), pulmonary nodules sen at ER:
- shortness of breath.
- she was admitted in July for CHF exacerbation as well as A-fib and pneumonia.
- recently made some medication adjustments and including double her Bumex dose.
- However despite this having significant weight gain.
- In July 263 lbs when she was discharged. Now 279 pounds today.
- some chills and she did have sick contacts [place]. No chest pain.
- report compliant with her Eliquis though they did hold it last month for a few days secondary to her kidney stone.
Her visiting nurse did come to the home and noticed she was struggling to breathe and placed her on oxygen.
Vital Signs
Temp Pulse Resp BP Pulse Ox
98.1 F 115 19 135/106 95
09/26/24 15:15 09/26/24 18:00 09/26/24 15:15 09/26/24 18:00 09/26/24 18:00
PE
Morbidly obese
Gen: no acute distress
HEENT: moist oral mucosa
Neck: supple
Lungs: CTA
Cor: RRR S1 S2
Abdomen: soft benign
SURVEILLANCE AGENT: AAO3 , NFND
MS: Lower extremity venous insufficiency and lymphedema
Psych:nl affect and mood
Data
Nl WCC
Hgb 10.2
Cl 96 CO2 33 BUN 28 Cr 0.9 eGFR > 60
NEG TPNI
proBNP 1430
07/04/24 TTE:
- hyperdynamic LVEF 65 to 70%.
- Moderate aortic stenosis with peak and mean gradients of 40 and 21 with a calculated aortic valve area of 1 cm2.
- Trivial pericardial effusion and no significant valvular disease overall unchanged from prior echocardiogram
Last hospitalist admission: 08/11/24 -08/18/24
DC DX
Impacted right ureteral stone, Lock Stent treatment completed
Complicated Urinary Tract Infection
Acute Kidney Injury
Diabetes
Atrial Fibrillation
Hypothyroidism
Lower extremity venous insufficiency and lymphedema
Heart Failure with Preserved Ejection Fraction
Hypomagnesemia
Pulmonary nodules posterior lower Lung lobes (follow up CT chest in 1 month recommended)
Nonspecific hyperdense/calcified lesion within the left adnexa measuring 2.4 cm possible fibroid vs calcified ovarian lesion (follow up pelvic US in one month recommended)
ASSESSMENT & PLAN
Dyspnea with Wt gain - 7.4 kg/14.8 lbs (08/18: 119.3 kg ----> 09/26: 126.7kg)
Volume overload complicated by decompensated chronic HFpEF
Moderate aortic stenosis
- IV Bumex 1 mg at ER then IV Bumex 1mg BID
- daily IOs, Wt
- daily BMP
- DCA card consult
Acute on chronic hypoxic and hypercapnic RF secondary to acute HF
HX CROW on CPAP HS
Possible obesity hypoventilation
Morbid Obesity BMI 48
Current HCO3 is 33 ( as hi as 43 on last admission)
- IV Diurese and f/u POx
- Hold metformin
- c/w HS CPAP
- Observe POx
- ABG with any AMS
Current Nl Cr and Nl eGFR is artifact due to volume expansion
HX CKD stage 3b with dry weight
Hypercalcemia
Hyperparathyroidism
-Vit D wnl, discontinue further supplementation
- Trend Cr during IB Bumex
-Avoid ANKIT/ARB' and spironolactone
Persistent A-fib:
- Continue home diltiazem for rate control
- c/w BUSINESS MANAGEMENT ASSOCIATE Eliquis
Hypothyroidism:
- Continue home levothyroxine 100 mcg daily
Hypertension:
Normotensive now
- observe BP while diuresing
Lower extremity venous insufficiency and lymphedema
HFpEF
-Bumex
-daily weight I/O
DVT Px: Eliquis
Full code
IP TLM
[2024-09-26] MEDS: ELIQUIS 5 MG PO (21:00)
[2024-09-26] MEDS: XALATAN OPHTHALMIC SOLUTION 1 DROP BOTH EYES (21:19)
[2024-09-26] MEDS: CARDIZEM CD 240 MG PO (21:19)
--- NOTE | 2024-09-26 23:59 | PTCARENOTE ---
Pt. received from ED with present at bedside. Pt. admitted for CHF exacerbation with plans to diurese/monitor labs. Pt. stated that she used a rolling walker at baseline and was continent of bowel and bladder at home. Purewick removed per
unit protocol and pt. educated regarding increased urination related to use of diuretics and use of bedside commode or bedpan. Education provided regarding reasoning for discontinuing purewick in order to decrease risk of infection. Patient stated
that she understood the reasoning but preferred to have purewick in place for comfort because she did not want to get up and down OOB or have to use the bedpan overnight. This nurse again reiterated reasoning as to why purewick would be
contraindicated when patient was oriented, ambulatory, and continent. Pt. stated that she understood but was unhappy with not using the purewick. Education regarding purewick reinforced by second unit nurse. At this time, patient's was still
at bedside and patient in bed one was becoming increasingly unhappy with his presence, asking when he was leaving and 'why was it appropriate for him to be here at this time.' This nurse explained to that he was welcomed to return in the AM,
but per hospital policy, was not permitted to stay overnight in a double room to which patient replied 'what if I want my to stay here?' This nurse again explained policy and explained that her would be able to return in the AM. As
this nurse was leaving room, patient in bed 1 again asked, 'when is he leaving, he needs to go. This is ridiculous.'
[2024-09-27] VITALS (8 sets, daily range): BP systolic 130–160; BP diastolic 70–99; PULSE 101–119; O2SAT 98; BMI 50.4
[2024-09-27] MEDS: SYNTHROID 100 MCG PO (05:58)
[2024-09-27 06:55] LABS: Hematocrit 33.3 % (37.0-47.0); Hemoglobin 10.4 g/dL (12.0-16.0); Mean Corp Hgb Conc. 31.2 g/dL (33.0-37.0); Mean Corpuscular Hgb 25.3 pg (27.0-31.0); Mean Platelet Volume 10.9 fL (7.4-10.4); Platelet Count 311 10^3/uL (130-400); Red Blood Cell Count 4.11 10^6/uL (4.20-5.40); Red Cell Dist. Width 15.7 % (11.5-14.5); White Blood Cell Count 8.7 10^3/uL (4.8-10.8)
[2024-09-27 07:22] LABS: Blood Urea Nitrogen 20 mg/dl (7-17); Calcium 8.3 mg/dl (8.4-10.2); Carbon Dioxide 34 mmol/L (22-30); Chloride 97 mmol/L (98-107); Estimated Creatinine Clearance 73 ml/min; Glucose 145 mg/dl (70-99); HDL Cholesterol 48 mg/dl; LDL Cholesterol, Calculated 139 mg/dl; Magnesium 1.5 mg/dl (1.6-2.3); Potassium 3.3 mmol/L (3.5-5.1); Sodium 145 mmol/L (135-145); Total Cholesterol 219 mg/dl (50-199); Triglyceride 160 mg/dl (10-149); Very Low Density Lipoprotein 32 mg/dl (0-30); eGFR > 60.00
--- NOTE | 2024-09-27 07:28 | W.PN.HOSP.TC ---
Today's Communication/Plan
-
see a/p
Assessment / Plan
Assessment / Plan
Physical Exam
General: No acute distress, appears comfortable at this time, Norbidly Obese
HEENT: NormoCephalic, Moist mucous membranes and Atraumatic
Respiratory: Clear to auscultation b/l, distant breath sounds, on nasal cannula oxygen supplementation
Cardiac: S1/S2 and Regular Rhythm; No Murmur or Rub
GI: Soft, Non Tender, Non Distended and Normal Bowel Sounds; No Organomegaly
Musculoskeletal: No Clubbing, No Cyanosis, b/l LE edema
Skin: No Rash
Neuro: AO x 3 Conversant Coherent
Psych: Calm
79F HFpEF COPD afib Eliquis sjogren syndrome IBS baseline rolling walker CROW CPAP here for Acute on Chronic HFpEF.
#acute hypoxic respiratory failure CHF exacerbation
-BNP 1430
-IV Bumex as per Cardio
-strict I &O, daily weight, fluid restriction
-recent ECHO with EF of 65-70%
-cardiology consult appreciated
-COVID.flu negative
-chest x ray appreciated limited examination, probable CHF, no evidence pneumonia
-patient is requiring 3l of oxygen
-continue supplemental oxygen to keep sat >92
-wean as tolerated
#CROW
-CPAP
# Hyperlipidemia
- statin continued
# History of asthma
- Singular continued, nebs from home continued
#anemia of chornic disease
-hgb stable at 10.2
-no active bleeding
-ctm
#NIDDM:
-Sliding scale insulin for now
-hold Januvia and metformin
-Accu-Cheks
#Persistent A-fib
-EKG with atrial fib
-Continue home diltiazem 240 mg p.o. 3 times daily for rate control
-Eliquis
#Hypothyroidism:
-Continue home levothyroxine 100 mcg daily
#Hyperparathyroidism
cont sensipar
Calcium in wnl
#Lower extremity venous insufficiency and lymphedema
CODE STATUS: Full code
discussed with patient and patient's Alphonso
I spent a total of 50 minutes with the patient or on the floor. More than 50% of this time involved counseling and coordination of care.
Anticipated Discharge: 24 - 48 hours
Subjective/Interval History
-
Date of Service: September 27, 2024
general malaise joint pain patient reports not sleeping well last night. Alphonso present during evaluation.
Objective Data
-
Labs:
Laboratory Results
09/27/24
06:13
WBC 8.7
Hgb 10.4 L
Hct 33.3 L
Plt Count 311
Sodium 145
Potassium 3.3 L
Chloride 97 L
Carbon Dioxide 34 H
BUN 20 H
Creatinine 0.8
Glucose 145 H
Calcium 8.3 L
Vital Signs:
Vital Signs
Temp Pulse Resp BP Pulse Ox
97.5 F 114 20 160/94 93
09/27/24 03:00 09/27/24 03:00 09/27/24 03:00 09/27/24 03:00 09/27/24 03:00
I&O
09/26/24 09/27/24 09/28/24
06:59 06:59 06:59
Intake Total 480 / 480
Balance 480 / 480
[2024-09-27] MEDS: PULMICORT 0.5 MG INH (07:38)
[2024-09-27 07:51] LABS: TSH Reflex To Free T4 2.19 uIU/ml (0.47-4.68)
[2024-09-27 07:56] LABS: Glucose - Point of Care 137 mg/dl (70-99)
[2024-09-27] MEDS: NOVOLOG FLEXPEN-LOW RESISTANCE SC ×2 (08:26→17:00)
[2024-09-27 08:34] LABS: Glycohemoglobin (HgbA1c) 7.5 % (4.0-5.6)
[2024-09-27] MEDS: VITAMIN B-12 1000 MCG PO (09:34)
[2024-09-27] MEDS: ELIQUIS 5 MG PO ×2 (09:34→21:19)
[2024-09-27] MEDS: PROTONIX 40 MG PO (09:34)
[2024-09-27] MEDS: CARDIZEM CD 240 MG PO ×2 (09:34→21:19)
[2024-09-27] MEDS: SENSIPAR 30 MG PO (09:34)
[2024-09-27] MEDS: ZYRTEC 10 MG PO (09:34)
[2024-09-27] MEDS: KCL 40 MEQ PO (09:34)
[2024-09-27] MEDS: TRIAMCINOLONE ACETONIDE 0.1% CREAM 1 APPLIC TOPICAL (09:35)
[2024-09-27] MEDS: BUMEX 1 MG IV (09:35)
[2024-09-27] MEDS: MAGNESIUM SULFATE 100 IV (09:36)
[2024-09-27 11:41] LABS: Glucose - Point of Care 168 mg/dl (70-99)
--- NOTE | 2024-09-27 11:51 | CM ---
Met with patient's spouse who was out in [place] as patient was toileting to confirm information for assessment. Patient's spouse stated that he lives with spouse in a one story home with no steps and ramp access. She is in need of assistance with all
ADLs, personal care, dressing and bathing. Her spouse does assist with fuel quality tech, cooking, cleaning and laundry. He transports her to her appointments and does all of the errands. Patient has a w/c, a scooter, a transport chair, a CPAP and
home o2 with concentrator. Patient did have assistance through [facility] however they are no longer coming out to care for patient so all her care is the responsibility of her spouse. Patient's spouse did not confirm that he can handle
the scope of her care, however, he relayed that patient will not go to a SNF as she has heard that they are 'not so nice'
Patient has a prescription plan and uses [facility] for all of her medications. ([place]) Her PCP is [place].
Patient currently meeting with RD to discuss diet. Will review therapy notes and make indication on behalf of their advisement regarding discharge. Patient's spouse stated that he was unsure if patient would want a resumption of care, he believes
through [facility] or would like a different agency. Will f/u with patient when she is available. Spoke with RN for update.
Plan: Case management will continue to follow and assist with discharge planning. Most likely home with VN services.
--- NOTE | 2024-09-27 12:00 | CON.CAR ---
Addendum entered and electronically signed by Osmani Davis MD 09/27/24 16:10:
I saw and examined the patient.
The Human Resources Assistant Manager's note was reviewed and I agree with the note.
Comment: Briefly, 79-year-old woman past medical history of heart failure with preserved ejection fraction, moderate aortic stenosis, persistent atrial fibrillation and ILD who is presenting with worsening weight gain, edema and dyspnea concerning
for acute decompensated heart failure. She was initially hypoxic and placed on 4 L of supplemental O2 via nasal cannula. proBNP 1430 which is higher than prior heart failure admissions.
Agree with IV diuresis, 2 mg Bumex IV twice daily
Follow daily weights, renal function and electrolytes
Wean oxygen as able
Reviewed low-salt diet and fluid restriction with patient
Spironolactone was previously discontinued, would consider reintroducing to augment diuresis
In regards to her atrial fibrillation would continue diltiazem for HR goal <110 bpm
As AFib may be contributing to her CHF decompensation may need to reconsider a rhythm control strategy
Continue Eliquis for cardioembolic prophylaxis
Original Note:
Consultation
Consultation Request
Date/Time Consultation Requested: 09/26/24 at 1939
Date/Time Consultation Performed: 09/27/24 at 1200
Requesting Provider: Dr. Escobedo
Performing Provider: Dr. Davis
Reason for Consultation: Acute HF
Medical History
-
History of Present Illness:
Patient came to the ER yesterday with increased SOB and is now admitted with acute HF and cardiology has been consulted. Patient was admitted with acute HFpEF 07/01/24 until 07/14/24 and diuresed 13 lbs for a d/c weight of 275 lbs. Prior to that
admission patient was taking Lasix 20 mg PO BID and then during that admission the patient was diuresed with Lasix IV and then transitioned to Bumex 1 mg PO daily at time of d/c. Patient was readmitted with acute HF and hematuria 08/11/24 until
08/18/24. Patient was treated for ureteral calculi during that admission and was also diuresed with a d/c weight of 263 lbs which was lower than her dry weight from the 07/14/24 d/c. Patient was again d/c'd on Bumex 1 mg PO daily and had a
telemedicine visit 09/21/24 and reported weight gain, edema and increased SOB. Patient had previously called the office and had her Bumex dose increased to 1 mg PO BID and during that office visit her Bumex was increased further to 2 mg PO BID, but
no change in urine output or edema per patient so she came to the ER last night. Patient reports that despite increased urine output since admission with Bumex 1 mg IV BID that her weight went up, but standing scale weight this morning is lower. No
improvement in LE edema. Still SOB. Patient also reporting increased HR into the 140s at rest at home.
PMH:
Recent admission for ureteral stone and acute HF 08/11/24 until 08/18/24
Recent admission for Afib and acute HF 07/01/24 until 07/14/24
Chronic HFpEF
Persistent Afib
8% burden on monitor 12/2023 and now persistent Afib since at least 07/01/24
Chronic Eliquis OAC
CROW/OHS on nocturnal CPAP with 2 L NC as an outpatient
ILD
DM 2
Severe morbid obesity, BMI 50.3
Mild to moderate aortic stenosis
Hypertension
Hypercholesterolemia
Venous insufficiency
Depression
Multiple medical allergies
Past Medical History
Past Medical History: Arrhythmias and CHF
Social History
Tobacco: Non-Smoker
Alcohol: None
Drug: None
Personal:
Living: With Family
Employment: Not Employed
Family History
Family History: CAD, Cancer, Hypertension and Other (PE)
Allergies / Home Medications
Allergy/AdvReac Type Severity Reaction Status Date / Time
alendronate sodium Allergy esophagus Verified 09/26/24 15:14
[From Fosamax] spasms
cephalexin [From Keflex] Allergy throat Verified 09/26/24 15:14
closed
clarithromycin [From Biaxin] Allergy Hives Verified 09/26/24 15:14
erythromycin base Allergy Rash, Verified 09/26/24 15:14
diarrhea
fentanyl Allergy difficulty Verified 09/26/24 15:14
awakening
from
surgery
fish oil Allergy Unknown Verified 09/26/24 15:14
house dust Allergy sneeze Verified 09/26/24 15:14
hyoscyamine Allergy throat Verified 09/26/24 15:14
tightening
influenza virus vaccine, Allergy Unknown Verified 09/26/24 15:14
specific
Iodinated Contrast Media Allergy Unknown Verified 09/26/24 15:14
latex Allergy Rash Verified 09/26/24 15:14
levalbuterol [From Xopenex] Allergy 'bee sting Verified 09/26/24 15:14
sensation
all over'
levofloxacin [From Levaquin] Allergy difficulty Verified 09/26/24 15:14
breathing
mold Allergy rash/hives/ Verified 09/26/24 15:14
sob
nut - unspecified Allergy Unknown Verified 09/26/24 15:14
Penicillins Allergy Hives Verified 09/26/24 15:14
pneumococcal vaccine Allergy Rash Verified 09/26/24 15:14
shellfish derived Allergy hives/difficulty Verified 09/26/24 15:14
breathing
tetanus and diphtheria Allergy wheezing Verified 09/26/24 15:14
toxoids
vancomycin Allergy Shortness Verified 09/26/24 15:14
of Breath
�Medication �Instructions �Recorded �Confirmed �Type
budesonide 0.5 mg/2 mL suspension 0.5 mg inhalation R DAILY 07/01/24 09/26/24 History
for nebulization Lung/Breathing Issues
sodium chloride 0.65 % nasal spray 1 spray intranasal TIDPRN PRN 07/01/24 09/26/24 History
aerosol dryness
apixaban 5 mg tablet (Eliquis) 5 mg PO BID Blood clot 07/14/24 09/26/24 Rx
prevention/tx #0 tabs
atorvastatin 10 mg tablet 10 mg PO QPM High cholesterol 30 07/14/24 09/26/24 Rx
days #30 tabs
bumetanide 1 mg tablet 1 mg PO DAILY Fluid 07/14/24 09/26/24 Rx
retention/Swelling #30 tabs
cetirizine 10 mg tablet 10 mg PO DAILY Allergies #0 tabs 07/14/24 09/26/24 Rx
cyanocobalamin (vitamin B-12) 1,000 mcg PO DAILY Supplement #0 07/14/24 09/26/24 Rx
1,000 mcg tablet (Vitamin B-12) tabs
diltiazem HCl 240 mg 240 mg PO TID Arrhythmia #0 caps 07/14/24 09/26/24 Rx
capsule,extended release 24 hr
mesalamine 1.2 gram tablet,delayed 2.4 g (2 x 1.2 gram) PO DAILY 07/14/24 09/26/24 Rx
release Gastrointestinal issue #0 tabs
montelukast 10 mg tablet 10 mg PO QPM Allergies #0 tabs 07/14/24 09/26/24 Rx
sitagliptin phosphate 100 mg 100 mg PO DAILY Diabetes #0 tabs 07/14/24 09/26/24 Rx
tablet (Januvia)
acetaminophen 650 mg 650 mg PO DAILYPRN PRN mild pain 08/11/24 09/26/24 History
tablet,extended release
docusate sodium 100 mg capsule 100 mg PO DAILYPRN PRN constipation 08/11/24 09/26/24 History
levothyroxine 100 mcg tablet 100 mcg PO DAILY Thyroid 08/11/24 09/26/24 History
metformin 500 mg tablet 500 mg PO BID Diabetes 08/11/24 09/26/24 History
methylcellulose (laxative) 500 mg 250 mg PO HSPRN PRN fiber 08/11/24 09/26/24 History
tablet (Citrucel) suppliment
pantoprazole 40 mg tablet,delayed 40 mg PO DAILY Gastrointestinal 08/11/24 09/26/24 History
release issue
travoprost 0.004 % eye drops 1 drp BOTH EYES HS Eye Condition 08/11/24 09/26/24 History
triamcinolone acetonide 0.1 % 1 applic topical DAILY both lower 08/11/24 09/26/24 History
topical cream legs
triamcinolone acetonide 55 mcg 1 spray intranasal HS Congestion 08/11/24 09/26/24 History
nasal spray aerosol (Nasacort)
vitamin A and D 1 applic topical DAILY b/l buttock 08/11/24 09/26/24 History
sore
cinacalcet 30 mg tablet 30 mg PO DAILY #30 tabs 08/18/24 09/26/24 Rx
Review of Systems
-
History Source: Patient and Family ( sitting bedside and helping with HPI)
All other systems: Negative unless noted
Physical Exam
Vital Signs
Temp Pulse Resp BP Pulse Ox
98.2 F 101 18 160/70 95
09/27/24 07:40 09/27/24 09:34 09/27/24 07:43 09/27/24 09:34 09/27/24 09:45
GEN: NAD. AAOx3
HEENT: EOMI, MMM, wearing glasses
LUNGS: 4 L NC. No audible wheeze
CV: Afib on tele. Irreg irreg, Reg, S1/S2, no murmur
ABD: soft, BS+, NT/ND
EXT: +3 hard, non-pitting B/L LE edema. Chronic venous changes.
NEURO: Gross non-focal
SKIN: No rash
Lab Results
09/27/24 06:13
09/27/24 06:13
Troponin I < 0.012 ng/ml 09/26/24 16:06
Zmx-M-Siovoglzixa Pept 1430 pg/ml 09/26/24 16:06
Impression / Plan
-
PCP: Dr. Lake
Card: Dr. Eitan Bullock
Impression:
Admitted with acute HFpEF
Recent admission for ureteral stone and acute HF 08/11/24 until 08/18/24
Recent admission for Afib and acute HF 07/01/24 until 07/14/24
Acute HFpEF
Persistent Afib
8% burden on monitor 12/2023 and now persistent Afib since at least 07/01/24
Chronic Eliquis OAC
CROW/OHS on nocturnal CPAP with 2 L NC as an outpatient
ILD
DM 2
Severe morbid obesity, BMI 50.3
Mild to moderate aortic stenosis
Hypertension
Hypercholesterolemia
Venous insufficiency
Depression
Multiple medical allergies
Echo 07/04/24: hyperdynamic left ventricular systolic function ejection fraction 65 to 70%. Moderate aortic stenosis with peak and mean gradients of 40 and 21 with a calculated aortic valve area of 1 cm2. Trivial pericardial effusion and no
significant valvular disease overall unchanged from prior echocardiogram
Plan:
-Patient came to the ER yesterday with increased SOB and is now admitted with acute HF and cardiology has been consulted. Patient was admitted with acute HFpEF 07/01/24 until 07/14/24 and diuresed 13 lbs for a d/c weight of 275 lbs. Prior to that
admission patient was taking Lasix 20 mg PO BID and then during that admission the patient was diuresed with Lasix IV and then transitioned to Bumex 1 mg PO daily at time of d/c. Patient was readmitted with acute HF and hematuria 08/11/24 until
08/18/24. Patient was treated for ureteral calculi during that admission and was also diuresed with a d/c weight of 263 lbs which was lower than her dry weight from the 07/14/24 d/c. Patient was again d/c'd on Bumex 1 mg PO daily and had a
telemedicine visit 09/21/24 and reported weight gain, edema and increased SOB. Patient had previously called the office and had her Bumex dose increased to 1 mg PO BID and during that office visit her Bumex was increased further to 2 mg PO BID, but
no change in urine output or edema per patient so she came to the ER last night. Patient reports that despite increased urine output since admission with Bumex 1 mg IV BID that her weight went up, but standing scale weight this morning is lower. No
improvement in LE edema. Still SOB. Patient also reporting increased HR into the 140s at rest at home.
-ECG reviewed by me is Afib and HR 103, QTc 390 ms
-Patient with persistent Afib since at least 07/01/24 and this is her 3rd admission for acute HF. Talked with patient and about rate vs rhythm control strategy. Patient feels that she was previously told she is not a candidate for CV, but I
cannot find this in my review of [facility] or [employer] documentation. Reviewed potential plan of diuresis, CV and then possible AAD. Patient is not sure that she wants CV due to it involving sedation with propofol. Patient asking if she can take AAD
without CV and I did not recommend adding AAD without uatsdin of SR.
-Patient is not a great candidate for amiodarone given ILD
-Patient is also a high risk for recurrent Afib due to obesity, CROW/OHS, HTN and DM2
-Patient would like to focus on rate control for now. patient was taking Cardizem CD 240 mg TID (total of 720 mg daily) and that seems higher than max dose so will reassess this admission.
-Patient does not wheeze, could try adding a BB.
-Patient then also reports that her HR is sometimes in the 50s at home. No evidence thus far of tachy-brigid. Follow on tele.
-Cont Eliquis 5 mg BID (age 79, wt 125 kg)
-Hgb stable at 10.4. Previous hematuria during 07/2024 admission was due to ureteral stone that was treated.
-Patient with acute HFpEF. Weight is up 12 lbs from previous dry weight.
-Increase Bumex to 2 mg IV BID and pending diuresis would consider a dose of metolazone in the AM. Patient was taking Bumex 2 mg PO BID just prior to admission
-Patient previously on Lasix prior to her 07/2024 admission, but it was changed to Bumex because she said Lasix was not effective.
-No need to recheck echo
-Losartan and spironolactone stopped last admission due to FAVIAN, but ureteral stone extracted Cre is 0.8 today. Will restart losartan 25 mg daily now and follow Cre with plans to restart spironolactone later this admission.
-Not previously started on SGLT-2 inhibitor due to UTI.
[2024-09-27] MEDS: NOVOLOG FLEXPEN-LOW RESISTANCE 1 UNITS SC (12:16)
[2024-09-27] MEDS: TYLENOL 1000 MG PO (16:23)
[2024-09-27] MEDS: BUMEX 2 MG IV (16:24)
[2024-09-27 16:42] LABS: ALT (SGPT) < 10 U/L (0-35); AST (SGOT) 15 U/L (14-36); Albumin 4.3 g/dl (3.5-5.0); Alkaline Phosphatase 200 U/L (38-126); Direct Bilirubin 0.4 mg/dl (0.0-0.4); Total Bilirubin 0.7 mg/dl (0.2-1.3); Total Protein 7.6 g/dl (6.3-8.2)
[2024-09-27 16:56] LABS: Glucose - Point of Care 126 mg/dl (70-99)
[2024-09-27] MEDS: LIPITOR 10 MG PO (17:03)
[2024-09-27] MEDS: SINGULAIR 10 MG PO (17:08)
[2024-09-27] MEDS: KCL 20 MEQ PO (21:19)
[2024-09-27] MEDS: XALATAN OPHTHALMIC SOLUTION 1 DROP BOTH EYES (21:19)
[2024-09-27 21:29] LABS: Glucose - Point of Care 176 mg/dl (70-99)
[2024-09-28] VITALS (9 sets, daily range): BP systolic 107–162; BP diastolic 67–106; PULSE 100
[2024-09-28] MEDS: SYNTHROID 100 MCG PO (03:22)
[2024-09-28] MEDS: ANESTHETIC LOZENGE 1 LOZENGE PO (03:22)
[2024-09-28] MEDS: CARDIZEM CD 240 MG PO ×2 (04:46→20:24)
[2024-09-28] MEDS: BUMEX 2 MG IV (04:47)
[2024-09-28 05:10] LABS: Hemoglobin 10.6 g/dL (12.0-16.0); Mean Corp Hgb Conc. 31.2 g/dL (33.0-37.0); Mean Corpuscular Hgb 25.4 pg (27.0-31.0); Mean Corpuscular Volume 81.5 fL (81.0-99.0); Mean Platelet Volume 10.1 fL (7.4-10.4); Platelet Count 302 10^3/uL (130-400); Red Blood Cell Count 4.17 10^6/uL (4.20-5.40); Red Cell Dist. Width 15.7 % (11.5-14.5); White Blood Cell Count 8.5 10^3/uL (4.8-10.8)
[2024-09-28 05:28] LABS: Blood Urea Nitrogen 19 mg/dl (7-17); Calcium 9.1 mg/dl (8.4-10.2); Carbon Dioxide 37 mmol/L (22-30); Chloride 99 mmol/L (98-107); Estimated Creatinine Clearance 73 ml/min; Glucose 158 mg/dl (70-99); Phosphorus 3.7 mg/dl (2.5-4.5); Potassium 3.8 mmol/L (3.5-5.1); Sodium 146 mmol/L (135-145); eGFR > 60.00
[2024-09-28] MEDS: COLACE 100 MG PO (05:32)
--- NOTE | 2024-09-28 05:49 | W.PN.UPDATE ---
Update Note
Progress Note Update
RN reports patient woke up short of breath and stated she couldn't breath, patient was on C-pap 80-84% 3.5 L HR 110, 20, 150/89. Patient seen and evaluated. Ox3, sitting at the bedside, tachypneic 24, 85-88% 4L at present on 3.5 L. Lungs crackles
throughout, HR RR tachy 110, b/l LE edema, reports shortness of breath, denies chest pain. Advised RN to give AM dose of IV Bumex and Cardizem PO now.
RN reported patient oxygen level 92% 3L resting in bed,
--- NOTE | 2024-09-28 07:16 | W.PN.HOSP.TC ---
Today's Communication/Plan
-
see a/p
Assessment / Plan
Assessment / Plan
Physical Exam
General: No acute distress, appears comfortable at this time, Norbidly Obese
HEENT: NormoCephalic, Moist mucous membranes and Atraumatic
Respiratory: Clear to auscultation b/l, distant breath sounds, on nasal cannula oxygen supplementation
Cardiac: S1/S2 and Regular Rhythm; No Murmur or Rub
GI: Soft, Non Tender, Non Distended and Normal Bowel Sounds; No Organomegaly
Musculoskeletal: No Clubbing, No Cyanosis, b/l LE edema
Skin: No Rash
Neuro: AO x 3 Conversant Coherent
Psych: Calm
79F HFpEF COPD afib Eliquis sjogren syndrome IBS baseline rolling walker CROW CPAP here for Acute on Chronic HFpEF.
#acute hypoxic respiratory failure CHF exacerbation
-BNP 1430
-strict I &O, daily weight, fluid restriction
-recent ECHO with EF of 65-70%
-Spironolactone Restarted low dose 12.5 mg (previously discontinued d/t hypercalcemia per nephro recommendations last hospitalization, Hypercalcemia since resolved)
-cardiology consult appreciated IV Bumex switched to Lasix 80 mg BID, metolazone prn, losartan restarted
-COVID.flu negative
-chest x ray appreciated limited examination, probable CHF, no evidence pneumonia
-continue supplemental oxygen to keep sat >92
-wean as tolerated
#Hypokalemia
monitor and replete as necessary
#CROW
-CPAP
# Hyperlipidemia
- statin continued
# History of asthma
- Singular continued, nebs from home continued
#anemia of chornic disease
-hgb stable at 10.2
-no active bleeding
-ctm
#NIDDM:
-Sliding scale insulin for now
-hold Januvia and metformin
-Accu-Cheks
#Persistent A-fib
-EKG with atrial fib
-Continue home diltiazem 240 mg p.o. 3 times daily for rate control
-Eliquis
#Hypothyroidism:
-Continue home levothyroxine 100 mcg daily
#Hyperparathyroidism
cont sensipar
Calcium in wnl
#Lower extremity venous insufficiency and lymphedema
CODE STATUS: Full code
discussed with patient, patient's Alphonso, and patient's daughter Iesha
I spent a total of 50 minutes with the patient or on the floor. More than 50% of this time involved counseling and coordination of care.
Anticipated Discharge: 24 - 48 hours
Subjective/Interval History
-
Date of Service: September 28, 2024
No acute distress, overnight events noted significant for shortness of breath hypoxia improved with early administration morning diuretic.
Objective Data
-
Labs:
Laboratory Results
09/28/24
05:00
WBC 8.5
Hgb 10.6 L
Hct 34.0 L
Plt Count 302
Sodium 146 H
Potassium 3.8
Chloride 99
Carbon Dioxide 37 H
BUN 19 H
Creatinine 0.8
Glucose 158 H
Calcium 9.1
Vital Signs:
Vital Signs
Temp Pulse Resp BP Pulse Ox
97.7 F 120 20 150/89 92
09/28/24 03:50 09/28/24 04:46 09/28/24 05:41 09/28/24 04:46 09/28/24 05:41
I&O
09/27/24 09/28/24 09/29/24
06:59 06:59 06:59
Intake Total 480 / 480 1680 / 1680
Balance 480 / 480 1680 / 1680
[2024-09-28] MEDS: PULMICORT 0.5 MG INH (07:40)
[2024-09-28 08:16] LABS: Glucose - Point of Care 134 mg/dl (70-99)
[2024-09-28] MEDS: NOVOLOG FLEXPEN-LOW RESISTANCE SC ×3 (08:35→16:52)
--- NOTE | 2024-09-28 08:42 | PN.CDI ---
CDI
- -
CDI:
Physician Documentation Request
Admit Date: 09/26/24 18:19
Dear Doctor Fanny,
Patient admitted for heart failure.
09/27 Potassium level: 3.3
4/30 Potassium chloride 40 meq administered
/30 Potassium chloride 20 meq administered
Based on the above, could you clarify in the progress notes, the appropriate diagnosis, if significant, that supports the above abnormalities and additional evaluation, monitoring and/or treatment rendered:
Hypokalemia
Abnormal lab value insignificant
Other
Use of terms such as suspected, likely, concern for, or probable (associated with a specific diagnosis that is being evaluated, monitored, or treated as if it exists) are acceptable and can be coded in the inpatient setting, when documented at the
time of discharge.
Thank you,
Sylvie Cody RN, BSN
CDI Specialist
Available via [place] text
Please use your independent medical judgment in providing your response.
[2024-09-28] MEDS: SENSIPAR 30 MG PO (09:19)
[2024-09-28] MEDS: ALDACTONE 12.5 MG PO (09:19)
[2024-09-28] MEDS: PROTONIX 40 MG PO (09:19)
[2024-09-28] MEDS: VITAMIN B-12 1000 MCG PO (09:20)
[2024-09-28] MEDS: ELIQUIS 5 MG PO ×2 (09:20→20:25)
[2024-09-28] MEDS: ZYRTEC 10 MG PO (09:20)
[2024-09-28] MEDS: TRIAMCINOLONE ACETONIDE 0.1% CREAM 1 APPLIC TOPICAL (09:20)
[2024-09-28] MEDS: COZAAR 25 MG PO (09:20)
--- NOTE | 2024-09-28 10:31 | W.PN.CARDCBS ---
Addendum entered and electronically signed by Pretty Maria DO 09/28/24 17:10:
I saw and examined the patient.
The Dog And Cat Food Cook's note was reviewed and I agree with the note.
Comment: Patient was seen and examined with at bedside. She is out of bed to a chair and feeling very tired/lethargic this afternoon and admits to poor sleep the last 2 nights. She has been using her BiPAP. She denies chest pain or
pressure. Remains short of breath
General: Morbidly obese, appears older than stated age. Nasal cannula O2. awake and answering questions appropriately but sleepy
Heart: Irregularly irregular. Positive S1-S2. 2/6 SM. Distant heart sounds.
Lungs: Decreased breath sounds bilaterally with fine crackles at the bases.
Abd: Morbidly obese. Nontender.
Ext: ++ edema; chronic venous stasis changes
Plan:
Heart failure with preserved ejection fraction
-proBNP 09/26/2024 1430
-Remains volume overloaded with overall difficult assessment of volume status given morbid obesity
-Plan to give metolazone 2.5 mg now with evening dose of Lasix
-Losartan and spironolactone stopped last admission due to FAVIAN, but ureteral stone extracted Cre is 0.8 today. Will restart losartan 25 mg daily now and follow Cre with plans to restart spironolactone later this admission.
-Not previously started on SGLT-2 inhibitor due to UTI-will assess cost plan to start this admission
Persistent atrial fibrillation
-Plan for rate control strategy for now although could consider trial of rhythm control strategy. Patient would be higher risk for anesthesia; will reconsider when she is more euvolemic
-Continue Eliquis anticoagulation
Moderate aortic stenosis on recent echocardiogram�continue to monitor.
Morbid obesity with CROW/obesity hypoventilation syndrome�continue BiPAP
Unfortunately given multiple comorbidities she is high risk for readmission
Original Note:
Today's Communication / Plan
-
Change Bumex to Lasix 80 mg IV BID
Metolazone 2.5 mg PO x1 with this afternoon's dose of Lasix
TT to nursing clearing supervisor to ask for a private bed given morbid obesity and to make it easier for patient to move around room and there are no private beds
Impression / Plan
-
PCP: Dr. Lake
Card: Dr. Eitan Bullock
Impression:
Admitted with acute HFpEF
Recent admission for ureteral stone and acute HF 08/11/24 until 08/18/24
Recent admission for Afib and acute HF 07/01/24 until 07/14/24
Acute HFpEF
Persistent Afib
8% burden on monitor 12/2023 and now persistent Afib since at least 07/01/24
Chronic Eliquis OAC
CROW/OHS on nocturnal CPAP with 2 L NC as an outpatient
ILD
DM 2
Severe morbid obesity, BMI 50.3
Mild to moderate aortic stenosis
Hypertension
Hypercholesterolemia
Venous insufficiency
Depression
Multiple medical allergies
Echo 07/04/24: hyperdynamic left ventricular systolic function ejection fraction 65 to 70%. Moderate aortic stenosis with peak and mean gradients of 40 and 21 with a calculated aortic valve area of 1 cm2. Trivial pericardial effusion and no
significant valvular disease overall unchanged from prior echocardiogram
Plan:
-apartment coordinator events noted, patient with increased SOB engineering team supervisor 09/28/24. Patient was given her ordered dose of Bumex 2 mg IV BID earlier than scheduled. Patient feels that she is not diuresing well with Bumex IV. Patient was previously on Lasix
prior to her 07/2024 admission, but it was changed to Bumex because she said Lasix was not effective. Will change to Lasix 80 mg IV BID, looks like patient was diuresed with Lasix 40 mg IV BID during her 07/2024 admission.
-Will also give a dose of metolazone 2.5 mg PO x1 on 09/28/24 evening prior to the dose of Lasix
-Patient not weighed 09/28/24, likely due to engineering team supervisor events. Daily weights ordered by me to specify standing scale
-Losartan and spironolactone stopped last admission due to FAVIAN, but ureteral stone extracted Cre is 0.8 today. Will restart losartan 25 mg daily now and follow Cre with plans to restart spironolactone later this admission.
-Not previously started on SGLT-2 inhibitor due to UTI.
-Tele reviewed by me is Afib with HRs 100-110. No significant bradycardia, patient says that HR ranges from 51 to 151 bpm at home
-Patient with persistent Afib since at least 07/01/24 and this is her 3rd admission for acute HF. Talked with patient and about rate vs rhythm control strategy 09/27/24 and again 09/28/24. Patient feels that she was previously told she is not a
candidate for CV, but I cannot find this in my review of [employer] or [employer] documentation. Reviewed potential plan of diuresis, CV and then possible AAD. Patient is not sure that she wants CV due to it involving sedation with propofol. Patient asking
if she can take AAD without CV and I did not recommend adding AAD without [facility].
-Patient is not a great candidate for amiodarone given ILD
-Patient is also a high risk for recurrent Afib due to obesity, CROW/OHS, HTN and DM2
-Patient would like to focus on rate control for now. Cardizem dose lowered to 240 mg B ID. Patient was taking Cardizem CD 240 mg TID (total of 720 mg daily) prior to admission and this has been changed.
-Patient does not wheeze, could try adding a BB.
-Patient then also reports that her HR is sometimes in the 50s at home. No evidence thus far of tachy-brigid. Follow on tele.
-Cont Eliquis 5 mg BID (age 79, wt 125 kg)
-Hgb stable at 10.6 on 09/28/24 labs reviewed by me. Previous hematuria during 07/2024 admission was due to ureteral stone that was treated.
HPI: Patient came to the ER yesterday with increased SOB and is now admitted with acute HF and cardiology has been consulted. Patient was admitted with acute HFpEF 07/01/24 until 07/14/24 and diuresed 13 lbs for a d/c weight of 275 lbs. Prior to that
admission patient was taking Lasix 20 mg PO BID and then during that admission the patient was diuresed with Lasix IV and then transitioned to Bumex 1 mg PO daily at time of d/c. Patient was readmitted with acute HF and hematuria 08/11/24 until
08/18/24. Patient was treated for ureteral calculi during that admission and was also diuresed with a d/c weight of 263 lbs which was lower than her dry weight from the 07/14/24 d/c. Patient was again d/c'd on Bumex 1 mg PO daily and had a
telemedicine visit 09/21/24 and reported weight gain, edema and increased SOB. Patient had previously called the office and had her Bumex dose increased to 1 mg PO BID and during that office visit her Bumex was increased further to 2 mg PO BID, but
no change in urine output or edema per patient so she came to the ER last night. Patient reports that despite increased urine output since admission with Bumex 1 mg IV BID that her weight went up, but standing scale weight this morning is lower. No
improvement in LE edema. Still SOB. Patient also reporting increased HR into the 140s at rest at home.
Progress Note - Drafter Mechanical
Subjective
Date of Service: September 28, 2024
She was very SOB this morning
Objective
Labs:
09/28/24 05:00
09/28/24 05:00
Labs
Hgb 10.6 g/dL (12.0-16.0) L 09/28/24 05:00
Hct 34.0 % (37.0-47.0) L 09/28/24 05:00
Plt Count 302 10^3/uL (130-400) 09/28/24 05:00
Sodium 146 mmol/L (135-145) H 09/28/24 05:00
Potassium 3.8 mmol/L (3.5-5.1) 09/28/24 05:00
BUN 19 mg/dl (7-17) H 09/28/24 05:00
Creatinine 0.8 mg/dL (0.6-1.0) 09/28/24 05:00
Glucose 158 mg/dl (70-99) H 09/28/24 05:00
Troponins
09/26/24
16:06
Troponin I < 0.012
Vital Signs and I&O:
Vital Signs
Temp Pulse Resp BP Pulse Ox
98.2 F 112 16 162/106 96
09/28/24 07:40 09/28/24 09:19 09/28/24 07:41 09/28/24 09:19 09/28/24 07:41
Vital Signs
Temp Pulse Resp BP Pulse Ox
98.2 F 112 16 162/106 96
09/28/24 07:40 09/28/24 09:19 09/28/24 07:41 09/28/24 09:19 09/28/24 07:41
Intake & Output
09/26/24 09/27/24 09/28/24 09/29/24
06:59 06:59 06:59 06:59
Intake Total 480 / 480 1680 / 1680 240 / 240
Balance 480 / 480 1680 / 1680 240 / 240
Physical Exam
Physical Exam
GEN: NAD. AAOx3
HEENT: EOMI, MMM, wearing glasses
LUNGS: 4 L NC. No audible wheeze
CV: Afib on tele.
ABD: soft, BS+, NT/ND
EXT: +3 hard, non-pitting B/L LE edema. Chronic venous changes.
NEURO: Gross non-focal
SKIN: No rash
[2024-09-28 12:10] LABS: Glucose - Point of Care 138 mg/dl (70-99)
[2024-09-28] MEDS: ZAROXOLYN 2.5 MG PO (15:08)
[2024-09-28] MEDS: LASIX 80 MG IV (15:44)
[2024-09-28 16:37] LABS: Glucose - Point of Care 193 mg/dl (70-99)
--- NOTE | 2024-09-28 16:56 | CM ---
Spoke with pt and in room .
Offered VN she requested resumption of [facility].
Referral placed.
Pt has home oxygen and CPAP at home with portable tanks fordriving home.
PLAn Home with [facility] VN
[2024-09-28] MEDS: SINGULAIR 10 MG PO (16:57)
[2024-09-28] MEDS: LIPITOR 10 MG PO (16:57)
[2024-09-28] MEDS: XALATAN OPHTHALMIC SOLUTION 1 DROP BOTH EYES (21:30)
[2024-09-28 21:33] LABS: Glucose - Point of Care 188 mg/dl (70-99)
--- NOTE | 2024-09-28 22:45 | PTCARENOTE ---
Patient transferred via chair. [address] at 3 liters. Patient anxious with transfer. Vitals stable. Bed and chair alarm applied. All belongings brought from previous room.
[2024-09-29] VITALS (7 sets, daily range): BP systolic 113–158; BP diastolic 70–91; O2SAT 95; BMI 49.5
[2024-09-29] MEDS: SYNTHROID 100 MCG PO (04:18)
[2024-09-29] MEDS: TYLENOL 650 MG PO ×3 (04:18→20:46)
[2024-09-29] MEDS: ANESTHETIC LOZENGE 1 LOZENGE PO (04:19)
[2024-09-29 07:32] LABS: Glucose - Point of Care 126 mg/dl (70-99)
--- NOTE | 2024-09-29 07:50 | W.PN.HOSP.TC ---
Today's Communication/Plan
-
see a/p
Assessment / Plan
Assessment / Plan
Physical Exam
General: No acute distress, appears comfortable at this time, Morbidly Obese
HEENT: NormoCephalic, Moist mucous membranes and Atraumatic
Respiratory: Clear to auscultation b/l, distant breath sounds, on nasal cannula oxygen supplementation
Cardiac: S1/S2 and Regular Rhythm; No Murmur or Rub
GI: Soft, Non Tender, Non Distended and Normal Bowel Sounds; No Organomegaly
Musculoskeletal: No Clubbing, No Cyanosis, b/l LE edema
Skin: No Rash
Neuro: AO x 3 Conversant Coherent
Psych: Calm
79F HFpEF COPD afib Eliquis sjogren syndrome IBS baseline rolling walker CROW CPAP here for Acute on Chronic HFpEF.
#acute hypoxic respiratory failure CHF exacerbation
-BNP 1430
-strict I &O, daily weight, fluid restriction
-recent ECHO with EF of 65-70%
-Spironolactone Restarted low dose 12.5 mg (previously discontinued d/t hypercalcemia per nephro recommendations last hospitalization, Hypercalcemia since resolved)
-cardiology consult appreciated IV Bumex switched to Lasix 80 mg BID, metolazone prn, losartan restarted/cont
-COVID.flu negative
-chest x ray appreciated limited examination, probable CHF, no evidence pneumonia
-continue supplemental oxygen to keep sat >92
-wean as tolerated
#Hematuria vs hemorrhoidal bleed d/t straining constipation
#Recent hx right renal stone ureter stent placement since removed
no flank pain
cont prn laxatives
once Miralax
urinalysis and hold on Eliquis as per Cardio
#Hypokalemia
monitor and replete as necessary
#CROW
-CPAP
# Hyperlipidemia
- statin continued
# History of asthma
- Singular continued, nebs from home continued
#anemia of chornic disease
-hgb stable at 10.2
-no active bleeding
-ctm
#NIDDM:
-Sliding scale insulin for now
-hold Januvia and metformin
-Accu-Cheks
#Persistent A-fib
-EKG with atrial fib
-Continue home diltiazem 240 mg p.o. 3 times daily for rate control
-Eliquis on hold as per Cardio d/t hematuria as above
#Hypothyroidism:
-Continue home levothyroxine 100 mcg daily
#Hyperparathyroidism
cont sensipar
Calcium in wnl
#Lower extremity venous insufficiency and lymphedema
CODE STATUS: Full code
discussed with patient and patient's Alphonso
I spent a total of 50 minutes with the patient or on the floor. More than 50% of this time involved counseling and coordination of care.
Anticipated Discharge: 24 - 48 hours
Subjective/Interval History
-
Date of Service: September 29, 2024
no acute distress, sitting up comfortably in chair. Reports overall improvement in symptoms. Weight improving. Remains oxygen dependent. Episode hematuria noted during day suspect actually hemorrhoidal bleeding d/t straining while constipated,
mixed in with urine. Patient also noted later urinating without noting any gross hematuria.
Objective Data
-
Labs:
Laboratory Results
09/29/24
07:45
WBC Pending
Hgb Pending
Hct Pending
Plt Count Pending
Sodium Pending
Potassium Pending
Chloride Pending
Carbon Dioxide Pending
BUN Pending
Creatinine Pending
Glucose Pending
Calcium Pending
Vital Signs:
Vital Signs
Temp Pulse Resp BP Pulse Ox
98.6 F 113 20 158/91 93
09/29/24 03:23 09/29/24 03:23 09/29/24 03:23 09/29/24 03:23 09/29/24 03:23
I&O
09/28/24 09/29/24 09/30/24
06:59 06:59 06:59
Intake Total 1680 / 1680 1680 / 1680
Output Total 1400 / 1400
Balance 1680 / 1680 280 / 280
[2024-09-29] MEDS: NOVOLOG FLEXPEN-LOW RESISTANCE SC (07:51)
[2024-09-29 08:06] LABS: Mean Corp Hgb Conc. 29.7 g/dL (33.0-37.0); Mean Corpuscular Volume 84.1 fL (81.0-99.0); Mean Platelet Volume 10.7 fL (7.4-10.4); Platelet Count 319 10^3/uL (130-400); Red Cell Dist. Width 15.8 % (11.5-14.5); White Blood Cell Count 8.3 10^3/uL (4.8-10.8)
[2024-09-29] MEDS: PULMICORT 0.5 MG INH (08:12)
[2024-09-29 08:48] LABS: Blood Urea Nitrogen 23 mg/dl (7-17); Calcium 9.2 mg/dl (8.4-10.2); Carbon Dioxide 39 mmol/L (22-30); Chloride 94 mmol/L (98-107); Estimated Creatinine Clearance 64 ml/min; Glucose 133 mg/dl (70-99); Magnesium 1.8 mg/dl (1.6-2.3); Phosphorus 4.2 mg/dl (2.5-4.5); Potassium 3.6 mmol/L (3.5-5.1); Sodium 145 mmol/L (135-145); eGFR > 60.00
[2024-09-29] MEDS: LASIX 80 MG IV ×2 (08:58→17:29)
[2024-09-29] MEDS: COZAAR 25 MG PO (08:59)
[2024-09-29] MEDS: SENSIPAR 30 MG PO (08:59)
[2024-09-29] MEDS: TRIAMCINOLONE ACETONIDE 0.1% CREAM 1 APPLIC TOPICAL (09:00)
[2024-09-29] MEDS: CARDIZEM CD 240 MG PO ×2 (09:00→20:40)
[2024-09-29] MEDS: ALDACTONE 12.5 MG PO (09:00)
[2024-09-29] MEDS: VITAMIN B-12 1000 MCG PO (09:00)
[2024-09-29] MEDS: ELIQUIS 5 MG PO (09:00)
[2024-09-29] MEDS: ZYRTEC 10 MG PO (09:00)
[2024-09-29] MEDS: PROTONIX 40 MG PO (09:00)
[2024-09-29] MEDS: COLACE 100 MG PO (09:02)
--- NOTE | 2024-09-29 11:25 | CM ---
Chart reviewed and spring encaser met with patient this am and patient plans on returning to home with [facility]
Plan; Home with [facility]
[phone]
[2024-09-29 12:02] LABS: Glucose - Point of Care 179 mg/dl (70-99)
[2024-09-29] MEDS: MAGNESIUM OXIDE 500 MG PO (12:09)
[2024-09-29] MEDS: NOVOLOG FLEXPEN-LOW RESISTANCE 1 UNITS SC ×2 (13:25→17:29)
--- NOTE | 2024-09-29 15:10 | W.PN.CARDCBS ---
Addendum entered and electronically signed by Jimbo Hobson MD 09/29/24 15:38:
I saw and examined the patient.
The Production Clerks Supervisor's note was reviewed and I agree with the note.
Comment:
GEN: No distress, awake, Ox3
HEENT: supple, anicteric, mmm
LUNGS: scatt rhonchi
CV: Irreg, S1/S2, 1/6 syst LSB, no gallop
ABD: soft, BS+, NT/ND
EXT: +2 edema
NEURO: Gross non-focal
SKIN: chronic stasis changes
Plan:
Continue with IV diuresis. Will add another dose of metolazone today. Creatinine overall stable. Weight down about 10 pounds. Exam difficult.
She is having some hematuria. Would recommend check urinalysis and urine culture. She had recent ureteral stone procedure. Hold Eliquis tonight. Hemoglobin stable.
Ventricular rates are borderline. Continue diltiazem for now. If they increase would add low-dose beta-mirian.
Original Note:
Today's Communication / Plan
-
Continue diuresis
Hold Eliquis w/ hematuria
Follow weights, creat
Impression / Plan
-
PCP: Dr. Lake
Card: Dr. Eitan Bullock
Impression:
Admitted with acute HFpEF
Recent admission for ureteral stone and acute HF 08/11/24 until 08/18/24
Recent admission for Afib and acute HF 07/01/24 until 07/14/24
Acute HFpEF
Persistent Afib
8% burden on monitor 12/2023 and now persistent Afib since at least 07/01/24
Chronic Eliquis OAC
CROW/OHS on nocturnal CPAP with 2 L NC as an outpatient
ILD
DM 2
Severe morbid obesity, BMI 50.3
Mild to moderate aortic stenosis
Hypertension
Hypercholesterolemia
Venous insufficiency
Depression
Multiple medical allergies
Echo 07/04/2024: hyperdynamic left ventricular systolic function ejection fraction 65 to 70%. Moderate aortic stenosis with peak and mean gradients of 40 and 21 with a calculated aortic valve area of 1 cm2. Trivial pericardial effusion and no
significant valvular disease overall unchanged from prior echocardiogram
Plan:
-Presented with SOB. Admitted with acute heart failure exacerbation.
-Patient did not feel she was diuresing well with bumex, so has been transitioned to IV lasix 80mg BID.
-Also given a dose of metolazone 2.5mg x1 on 09/28.
-Weight down to 270 lbs 09/29. Continue to follow daily weights, I&Os.
-Creat stable at 0.9. Could consider further doses of metolazone if needed.
-Previously losartan and spironolactone were held due to FAVIAN w/ ureteral stone. Losartan and spironolactone resumed 09/28.
-Not on SGLT2 inhibitor due to UTI.
-Persistent afib noted since at least 07/01/24. Poor candidate for amiodarone due to ILD and patient is at high risk of recurrent afib w/ obesity, CROW/OHS, HTN, and DM2, so plan is for rate control.
-Continue cardizem 240mg BID. Could consider adding BB for additional rate control if elevated rates noted. No wheezing noted.
-On Eliquis 5mg BID for anticoagulation. Now w/ hematuria noted 09/29/2024. Hgb stable at 11.0.
-Will hold Eliquis for now. If hematuria resolves, will resume.
-Previous hematuria during 07/2024 admission was due to ureteral stone that was treated.
HPI: Patient came to the ER yesterday with increased SOB and is now admitted with acute HF and cardiology has been consulted. Patient was admitted with acute HFpEF 07/01/24 until 07/14/24 and diuresed 13 lbs for a d/c weight of 275 lbs. Prior to that
admission patient was taking Lasix 20 mg PO BID and then during that admission the patient was diuresed with Lasix IV and then transitioned to Bumex 1 mg PO daily at time of d/c. Patient was readmitted with acute HF and hematuria 08/11/24 until
08/18/24. Patient was treated for ureteral calculi during that admission and was also diuresed with a d/c weight of 263 lbs which was lower than her dry weight from the 07/14/24 d/c. Patient was again d/c'd on Bumex 1 mg PO daily and had a
telemedicine visit 09/21/24 and reported weight gain, edema and increased SOB. Patient had previously called the office and had her Bumex dose increased to 1 mg PO BID and during that office visit her Bumex was increased further to 2 mg PO BID, but
no change in urine output or edema per patient so she came to the ER last night. Patient reports that despite increased urine output since admission with Bumex 1 mg IV BID that her weight went up, but standing scale weight this morning is lower. No
improvement in LE edema. Still SOB. Patient also reporting increased HR into the 140s at rest at home.
Progress Note - Rn Mobile
Subjective
Date of Service: September 29, 2024
Objective
Labs:
09/29/24 07:45
09/29/24 07:45
Labs
Hgb 11.0 g/dL (12.0-16.0) L 09/29/24 07:45
Hct 37.0 % (37.0-47.0) 09/29/24 07:45
Plt Count 319 10^3/uL (130-400) 09/29/24 07:45
Sodium 145 mmol/L (135-145) 09/29/24 07:45
Potassium 3.6 mmol/L (3.5-5.1) 09/29/24 07:45
BUN 23 mg/dl (7-17) H 09/29/24 07:45
Creatinine 0.9 mg/dL (0.6-1.0) 09/29/24 07:45
Glucose 133 mg/dl (70-99) H 09/29/24 07:45
Troponins
09/26/24
16:06
Troponin I < 0.012
Vital Signs and I&O:
Vital Signs
Temp Pulse Resp BP Pulse Ox
98.7 F 97 22 122/80 96
09/29/24 11:32 09/29/24 11:32 09/29/24 11:32 09/29/24 11:32 09/29/24 11:32
Vital Signs
Temp Pulse Resp BP Pulse Ox
98.7 F 97 22 122/80 96
09/29/24 11:32 09/29/24 11:32 09/29/24 11:32 09/29/24 11:32 09/29/24 11:32
Intake & Output
09/27/24 09/28/24 09/29/24 09/30/24
06:59 06:59 06:59 06:59
Intake Total 480 / 480 1680 / 1680 1680 / 1680
Output Total 1400 / 1400
Balance 480 / 480 1680 / 1680 280 / 280
Physical Exam
Physical Exam
GEN: No distress, awake, alert, oriented x3
HEENT: supple, anicteric, mmm
LUNGS: crackles at b/l bases no wheezes
CV: irregularly irregular, S1/S2, 1/6 syst murmur
EXT: No clubbing or cyanosis. +2 edema b/l LE
NEURO: Gross non-focal
SKIN: Warm, dry, chronic venous changes of LE
[2024-09-29] MEDS: LASIX IV (16:43)
[2024-09-29] MEDS: ZAROXOLYN 2.5 MG PO (16:43)
[2024-09-29 16:50] LABS: Glucose - Point of Care 173 mg/dl (70-99)
[2024-09-29 17:12] LABS: Iron 45 ug/dl (37-170)
[2024-09-29 17:23] LABS: Percent Saturation 10 % (20-50); Total Iron Binding Capacity 414 ug/dl (265-497)
[2024-09-29] MEDS: LIPITOR 10 MG PO (17:29)
[2024-09-29] MEDS: SINGULAIR 10 MG PO (17:29)
[2024-09-29] MEDS: MIRALAX 17 GRAMS PO (18:28)
[2024-09-29 18:32] LABS: Urine Albumin 3+ (Neg - Trace); Urine Bilirubin Negative (Negative); Urine Character Slightly Cloudy (Clear); Urine Glucose Negative (Negative); Urine Ketone Negative (Negative); Urine Leukocyte 3+ (Negative); Urine Nitrite Positive (Negative); Urine Occult Blood 4+ (Negative); Urine Urobilinogen Negative (Neg - 1+)
[2024-09-29 18:35] LABS: Urine Color Pink
[2024-09-29 18:39] LABS: Urine Bacteria Few (Negative); Urine Red Blood Cell >100 /HPF (0-2); Urine Squamous Cell 0-2 /LPF (Few)
[2024-09-29 19:14] LABS: Ferritin 19.7 ng/ml (11.1-264.0)
[2024-09-29 19:45] LABS: Folate 8.6 ng/ml (2.76-20)
[2024-09-29] MEDS: XALATAN OPHTHALMIC SOLUTION 1 DROP BOTH EYES (20:41)
[2024-09-29] MEDS: SENOKOT 8.6 MG PO (20:47)
[2024-09-29 21:06] LABS: Glucose - Point of Care 174 mg/dl (70-99)
[2024-09-30 03:45] VITALS: BP 116/74
--- NOTE | 2024-09-30 03:59 | PTCARENOTE ---
Patient had episode of hematuria.
[2024-09-30] MEDS: SYNTHROID 100 MCG PO (05:50)
[2024-09-30 06:00] VITALS: BMI 49.1
[2024-09-30 07:00] VITALS: BP 131/83
--- NOTE | 2024-09-30 07:13 | W.PN.HOSP.TC ---
Today's Communication/Plan
-
cont diuresis as per cardio
follow urine culture
VBG in AM
CPAP patient's own machine
Assessment / Plan
Assessment / Plan
Physical Exam
General: No acute distress, appears comfortable at this time, Morbidly Obese
HEENT: NormoCephalic, Moist mucous membranes and Atraumatic
Respiratory: Clear to auscultation b/l, distant breath sounds, on nasal cannula oxygen supplementation
Cardiac: S1/S2 and Regular Rhythm; No Murmur or Rub
GI: Soft, Non Tender, Non Distended and Normal Bowel Sounds; No Organomegaly
Musculoskeletal: No Clubbing, No Cyanosis, b/l LE edema
Skin: No Rash
Neuro: AO x 3 Conversant Coherent
Psych: Calm
79F HFpEF COPD afib Eliquis sjogren syndrome IBS baseline rolling walker CROW CPAP here for Acute on Chronic HFpEF.
#acute hypoxic respiratory failure CHF exacerbation
-BNP 1430
-strict I &O, daily weight, fluid restriction
-recent ECHO with EF of 65-70%
-Spironolactone Restarted low dose 12.5 mg (previously discontinued d/t hypercalcemia per nephro recommendations last hospitalization, Hypercalcemia since resolved)
-cardiology consult appreciated IV Bumex switched to Lasix 80 mg BID, metolazone prn, losartan restarted/cont
-COVID.flu negative
-chest x ray appreciated limited examination, probable CHF, no evidence pneumonia
-continue supplemental oxygen to keep sat >92
-wean as tolerated
#Intermittent Hematuria vs hemorrhoidal bleed d/t straining constipation
#Recent hx right renal stone ureter stent placement since removed
no flank pain
cont prn laxatives
scheduled Senokot hold if diarrhea
hold on Eliquis as per Cardio
urinalysis noted suggestive of UTI however patient asymptomatic, monitor off abx for now
Urology eval appreciated follow urine culture, consider CT if urine cx neg
#Hypokalemia
monitor and replete as necessary
#CROW
#Hypercapnia
-CPAP pt's own machine
-follow up AM VBG
# Hyperlipidemia
- statin continued
# History of asthma
- Singular continued, nebs from home continued
#anemia of chornic disease
-H&H stable
-no active bleeding
-ctm
#NIDDM:
-Sliding scale insulin for now
-hold Januvia and metformin
-Accu-Cheks
#Persistent A-fib
-EKG with atrial fib
-Continue home diltiazem 240 mg p.o. 3 times daily for rate control
-Eliquis on hold as per Cardio d/t hematuria as above
#Hypothyroidism:
-Continue home levothyroxine 100 mcg daily
#Hyperparathyroidism
cont sensipar
Calcium in wnl
#Lower extremity venous insufficiency and lymphedema
CODE STATUS: Full code
discussed with patient, patient's Alphonso, and patient's daughter Iesha
I spent a total of 50 minutes with the patient or on the floor. More than 50% of this time involved counseling and coordination of care.
Anticipated Discharge: 24 - 48 hours
Subjective/Interval History
-
Date of Service: September 30, 2024
Reports poor sleep, not tolerating hospital CPAP. to bring in patient's own CPAP. Reporting general body aches, subjective feelings fever (consistently afebrile), and nasal congestion
Objective Data
-
Labs:
Laboratory Results
09/30/24
06:00
WBC Pending
Hgb Pending
Hct Pending
Plt Count Pending
Sodium Pending
Potassium Pending
Chloride Pending
Carbon Dioxide Pending
BUN Pending
Creatinine Pending
Glucose Pending
Calcium Pending
Vital Signs:
Vital Signs
Temp Pulse Resp BP Pulse Ox
98.1 F 98 22 116/74 94
09/30/24 03:45 09/30/24 03:45 09/30/24 03:45 09/30/24 03:45 09/30/24 03:45
I&O
09/29/24 09/30/24 10/01/24
06:59 06:59 06:59
Intake Total 1680 / 1680 420 / 420 360 / 360
Output Total 1400 / 1400 1050 / 1050 950 / 950
Balance 280 / 280 -630 / -630 -590 / -590
[2024-09-30 08:17] LABS: Hematocrit 33.7 % (37.0-47.0); Hemoglobin 10.1 g/dL (12.0-16.0); Mean Corpuscular Hgb 24.9 pg (27.0-31.0); Mean Corpuscular Volume 83.2 fL (81.0-99.0); Mean Platelet Volume 10.9 fL (7.4-10.4); Platelet Count 300 10^3/uL (130-400); Red Blood Cell Count 4.05 10^6/uL (4.20-5.40); Red Cell Dist. Width 15.8 % (11.5-14.5); White Blood Cell Count 7.3 10^3/uL (4.8-10.8)
[2024-09-30 08:21] LABS: Glucose - Point of Care 134 mg/dl (70-99)
[2024-09-30] MEDS: NOVOLOG FLEXPEN-LOW RESISTANCE SC ×2 (08:33→17:03)
[2024-09-30] MEDS: ALDACTONE 12.5 MG PO (08:35)
[2024-09-30] MEDS: SENSIPAR 30 MG PO (08:35)
[2024-09-30] MEDS: VITAMIN B-12 1000 MCG PO (08:39)
[2024-09-30] MEDS: COZAAR 25 MG PO (08:39)
[2024-09-30] MEDS: LASIX 80 MG IV ×2 (08:39→16:00)
[2024-09-30] MEDS: CARDIZEM CD 240 MG PO ×2 (08:39→20:19)
[2024-09-30] MEDS: MAGNESIUM OXIDE 500 MG PO ×2 (08:39→20:18)
[2024-09-30] MEDS: ZYRTEC 10 MG PO (08:39)
[2024-09-30] MEDS: PROTONIX 40 MG PO (08:39)
[2024-09-30] MEDS: TRIAMCINOLONE ACETONIDE 0.1% CREAM 1 APPLIC TOPICAL (08:40)
[2024-09-30 08:51] LABS: Blood Urea Nitrogen 32 mg/dl (7-17); Calcium 8.5 mg/dl (8.4-10.2); Chloride 88 mmol/L (98-107); Estimated Creatinine Clearance 58 ml/min; Glucose 141 mg/dl (70-99); Magnesium 1.7 mg/dl (1.6-2.3); Phosphorus 4.5 mg/dl (2.5-4.5); Potassium 3.4 mmol/L (3.5-5.1); Sodium 141 mmol/L (135-145); eGFR 57.66
[2024-09-30] MEDS: PULMICORT 0.5 MG INH (08:53)
--- NOTE | 2024-09-30 10:10 | W.PN.CARDCBS ---
Today's Communication / Plan
-
Continue with Lasix 80 mg IV twice daily but hold off on metolazone today
Given recurrence of hematuria, Eliquis is currently on hold
Follow hemoglobin
Further evaluation and management of hematuria as per primary service
Impression / Plan
-
PCP: Dr. Lake
Card: Dr. Eitan Bullock
Impression:
Admitted with acute HFpEF
Recent admission for ureteral stone and acute HF 08/11/24 until 08/18/24
Recent admission for Afib and acute HF 07/01/24 until 07/14/24
Acute HFpEF
Persistent Afib
8% burden on monitor 12/2023 and now persistent Afib since at least 07/01/24
Chronic Eliquis OAC
CROW/OHS on nocturnal CPAP with 2 L NC as an outpatient
ILD
DM 2
Severe morbid obesity, BMI 50.3
Mild to moderate aortic stenosis
Hypertension
Hypercholesterolemia
Venous insufficiency
Depression
Multiple medical allergies
Echo 07/04/2024: hyperdynamic left ventricular systolic function ejection fraction 65 to 70%. Moderate aortic stenosis with peak and mean gradients of 40 and 21 with a calculated aortic valve area of 1 cm2. Trivial pericardial effusion and no
significant valvular disease overall unchanged from prior echocardiogram
Plan:
Presented with SOB. Admitted with acute heart failure exacerbation and marked volume overload.
-IV lasix 80mg BID. Also was given a one time dose of metolazone 2.5mg x1 on 09/29.
-Weight continues to trend downward: down to 2268 lbs 09/30 (on adm wt was 279 lbs and last DC wt was 263 lbs).
-Creat up slightly to 1. Will maintain Lasix 80 mg IV twice daily will hold off on further metolazone today, assess metolazone dosing on an as-needed basis.
-Previously losartan and spironolactone were held due to FAVIAN w/ ureteral stone. Losartan and spironolactone resumed 09/28.
-Not on SGLT2 inhibitor due to UTI.
Persistent afib noted since at least 07/01/24.
-Poor candidate for amiodarone due to ILD and patient is at high risk of recurrent afib w/ obesity, CROW/OHS, HTN, and DM2, so plan has been for rate control.
-Continue cardizem 240mg BID. Could consider adding BB for additional rate control if elevated rates noted. No wheezing noted.
-Eliquis 5mg BID on hold given hematuria.
Hematuria noted 09/29/2024 Eliquis was held starting 09/29.
-Hgb on 09/30 is essentially stable at 10.1.
-Will hold Eliquis for now. If Hgb does not cont to fall / hematuria resolves, will resume.
-Note: Previous hematuria during 07/2024 admission was due to ureteral stone that was treated.
HPI: Patient came to the ER yesterday with increased SOB and is now admitted with acute HF and cardiology has been consulted. Patient was admitted with acute HFpEF 07/01/24 until 07/14/24 and diuresed 13 lbs for a d/c weight of 275 lbs. Prior to that
admission patient was taking Lasix 20 mg PO BID and then during that admission the patient was diuresed with Lasix IV and then transitioned to Bumex 1 mg PO daily at time of d/c. Patient was readmitted with acute HF and hematuria 08/11/24 until
08/18/24. Patient was treated for ureteral calculi during that admission and was also diuresed with a d/c weight of 263 lbs which was lower than her dry weight from the 07/14/24 d/c. Patient was again d/c'd on Bumex 1 mg PO daily and had a
telemedicine visit 09/21/24 and reported weight gain, edema and increased SOB. Patient had previously called the office and had her Bumex dose increased to 1 mg PO BID and during that office visit her Bumex was increased further to 2 mg PO BID, but
no change in urine output or edema per patient so she came to the ER last night. Patient reports that despite increased urine output since admission with Bumex 1 mg IV BID that her weight went up, but standing scale weight this morning is lower. No
improvement in LE edema. Still SOB. Patient also reporting increased HR into the 140s at rest at home.
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
Subjective
Date of Service: September 30, 2024
She tells me she feels fatigued and aches all over but denies chest pain. Shortness of breath is ' the same'
Objective
Labs:
09/30/24 07:49
09/30/24 07:49
Labs
Hgb 10.1 g/dL (12.0-16.0) L 09/30/24 07:49
Hct 33.7 % (37.0-47.0) L 09/30/24 07:49
Plt Count 300 10^3/uL (130-400) 09/30/24 07:49
Sodium 141 mmol/L (135-145) 09/30/24 07:49
Potassium 3.4 mmol/L (3.5-5.1) L 09/30/24 07:49
BUN 32 mg/dl (7-17) H 09/30/24 07:49
Creatinine 1.0 mg/dL (0.6-1.0) 09/30/24 07:49
Glucose 141 mg/dl (70-99) H 09/30/24 07:49
Vital Signs and I&O:
Vital Signs
Temp Pulse Resp BP Pulse Ox
98.7 F 84 20 131/83 98
09/30/24 07:00 09/30/24 09:08 09/30/24 09:08 09/30/24 08:35 09/30/24 09:08
Vital Signs
Temp Pulse Resp BP Pulse Ox
98.7 F 84 20 131/83 98
09/30/24 07:00 09/30/24 09:08 09/30/24 09:08 09/30/24 08:35 09/30/24 09:08
Intake & Output
09/28/24 09/29/24 09/30/24 10/01/24
06:59 06:59 06:59 06:59
Intake Total 1680 / 1680 1680 / 1680 420 / 420 360 / 360
Output Total 1400 / 1400 1050 / 1050 950 / 950
Balance 1680 / 1680 280 / 280 -630 / -630 -590 / -590
Physical Exam
Physical Exam
Morbidly obese sitting in chair appears fatigued
Irregular rate and rhythm with normal S1 and S2, no S3 no S4 there is a grade 1/6 apical holosystolic murmur
Lungs poor inspiratory effort otherwise clear bilaterally
Extremities +3 pretibial edema bilaterally
[2024-09-30 10:14] LABS: Carbon Dioxide 38 mmol/L (22-30)
[2024-09-30 11:00] VITALS: BP 131/85
[2024-09-30 11:57] LABS: Glucose - Point of Care 228 mg/dl (70-99)
[2024-09-30] MEDS: TYLENOL 650 MG PO (12:44)
[2024-09-30] MEDS: NOVOLOG FLEXPEN-LOW RESISTANCE 2 UNITS SC (12:45)
--- NOTE | 2024-09-30 14:03 | CONS.URO ---
Consultation
-
Date/Time Consultation Performed: 09/30/24 1405
Performing Provider: Butch
Reason for Consultation: hematuria
Medical History
History of Present Illness
Pt admitted 09/26 via ED for CHF exacerbation.
During previous admission during July,, Dr Sanchez performed right ureteroscopy, laser lithotripsy and stenting.
Patient has manifested hematuria.
Past Medical History
Past Medical History: Other (Persistent Afib 8% burden on monitor 12/2023 and now persistent Afib since at least 07/01/24 Chronic Eliquis OAC CROW/OHS on nocturnal CPAP with 2 L NC as an outpatient ILD DM 2 Severe morbid obesity, BMI 50.3 Mild to
moderate aortic stenosis Hypertension Hypercholesterolemia Venous insufficiency Depres)
Past Surgical History: Urological
Allergies/Home Medications
Allergies
Allergy/AdvReac Type Severity Reaction Status Date / Time
strawberry Allergy Unknown Unknown Verified 09/30/24 13:21
alendronate sodium Allergy esophagus Verified 09/26/24 15:14
[From Fosamax] spasms
cephalexin [From Keflex] Allergy throat Verified 09/26/24 15:14
closed
clarithromycin [From Biaxin] Allergy Hives Verified 09/26/24 15:14
erythromycin base Allergy Rash, Verified 09/26/24 15:14
diarrhea
fentanyl Allergy difficulty Verified 09/26/24 15:14
awakening
from
surgery
fish oil Allergy Unknown Verified 09/26/24 15:14
house dust Allergy sneeze Verified 09/26/24 15:14
hyoscyamine Allergy throat Verified 09/26/24 15:14
tightening
influenza virus vaccine, Allergy Unknown Verified 09/26/24 15:14
specific
Iodinated Contrast Media Allergy Unknown Verified 09/26/24 15:14
latex Allergy Rash Verified 09/26/24 15:14
levalbuterol [From Xopenex] Allergy 'bee sting Verified 09/26/24 15:14
sensation
all over'
levofloxacin [From Levaquin] Allergy difficulty Verified 09/26/24 15:14
breathing
mold Allergy rash/hives/ Verified 09/26/24 15:14
sob
Penicillins Allergy Hives Verified 09/26/24 15:14
pneumococcal vaccine Allergy Rash Verified 09/26/24 15:14
shellfish derived Allergy hives/difficulty Verified 09/26/24 15:14
breathing
tetanus and diphtheria Allergy wheezing Verified 09/26/24 15:14
toxoids
vancomycin Allergy Shortness Verified 09/26/24 15:14
of Breath
Home Medications
�Medication �Instructions �Recorded �Confirmed �Type
budesonide 0.5 mg/2 mL suspension 0.5 mg inhalation R DAILY 07/01/24 09/26/24 History
for nebulization Lung/Breathing Issues
sodium chloride 0.65 % nasal spray 1 spray intranasal TIDPRN PRN 07/01/24 09/26/24 History
aerosol dryness
apixaban 5 mg tablet (Eliquis) 5 mg PO BID Blood clot 07/14/24 09/26/24 Rx
prevention/tx #0 tabs
atorvastatin 10 mg tablet 10 mg PO QPM High cholesterol 30 07/14/24 09/26/24 Rx
days #30 tabs
bumetanide 1 mg tablet 1 mg PO DAILY Fluid 07/14/24 09/26/24 Rx
retention/Swelling #30 tabs
cetirizine 10 mg tablet 10 mg PO DAILY Allergies #0 tabs 07/14/24 09/26/24 Rx
cyanocobalamin (vitamin B-12) 1,000 mcg PO DAILY Supplement #0 07/14/24 09/26/24 Rx
1,000 mcg tablet (Vitamin B-12) tabs
diltiazem HCl 240 mg 240 mg PO TID Arrhythmia #0 caps 07/14/24 09/26/24 Rx
capsule,extended release 24 hr
mesalamine 1.2 gram tablet,delayed 2.4 g (2 x 1.2 gram) PO DAILY 07/14/24 09/26/24 Rx
release Gastrointestinal issue #0 tabs
montelukast 10 mg tablet 10 mg PO QPM Allergies #0 tabs 07/14/24 09/26/24 Rx
sitagliptin phosphate 100 mg 100 mg PO DAILY Diabetes #0 tabs 07/14/24 09/26/24 Rx
tablet (Januvia)
acetaminophen 650 mg 650 mg PO DAILYPRN PRN mild pain 08/11/24 09/26/24 History
tablet,extended release
docusate sodium 100 mg capsule 100 mg PO DAILYPRN PRN constipation 08/11/24 09/26/24 History
levothyroxine 100 mcg tablet 100 mcg PO DAILY Thyroid 08/11/24 09/26/24 History
metformin 500 mg tablet 500 mg PO BID Diabetes 08/11/24 09/26/24 History
methylcellulose (laxative) 500 mg 250 mg PO HSPRN PRN fiber 08/11/24 09/26/24 History
tablet (Citrucel) suppliment
pantoprazole 40 mg tablet,delayed 40 mg PO DAILY Gastrointestinal 08/11/24 09/26/24 History
release issue
travoprost 0.004 % eye drops 1 drp BOTH EYES HS Eye Condition 08/11/24 09/26/24 History
triamcinolone acetonide 0.1 % 1 applic topical DAILY both lower 08/11/24 09/26/24 History
topical cream legs
triamcinolone acetonide 55 mcg 1 spray intranasal HS Congestion 08/11/24 09/26/24 History
nasal spray aerosol (Nasacort)
vitamin A and D 1 applic topical DAILY b/l buttock 08/11/24 09/26/24 History
sore
cinacalcet 30 mg tablet 30 mg PO DAILY #30 tabs 08/18/24 09/26/24 Rx
Physical Exam
Vital Signs
Vital Signs
Temp Pulse Resp BP Pulse Ox
97.4 F 110 20 131/85 97
09/30/24 11:00 09/30/24 11:00 09/30/24 11:00 09/30/24 11:00 09/30/24 11:00
Lab / Testing Results
Laboratory Results
09/30/24 07:49
09/30/24 07:49
Assessment / Plan
-
Hematuria is suspected to be from an UTI, based on UA results.
Rec: await urine C&S; if no infection, then CT to look for additional urolithiasis
[2024-09-30] MEDS: KCL 40 MEQ PO (14:29)
[2024-09-30 15:00] VITALS: BP 100/63
--- NOTE | 2024-09-30 15:07 | RESPNOTE ---
ABG order received. Attempted to do abg but pt refusing and stating that she wants to talk to the doctor. MD notified and @ bedside.
[2024-09-30 16:38] LABS: Glucose - Point of Care 139 mg/dl (70-99)
[2024-09-30] MEDS: SINGULAIR 10 MG PO (17:03)
[2024-09-30] MEDS: LIPITOR 10 MG PO (17:03)
[2024-09-30 20:16] VITALS: BP 108/67
[2024-09-30] MEDS: KCL 20 MEQ PO (20:18)
[2024-09-30] MEDS: SENOKOT 8.6 MG PO (20:18)
[2024-09-30] MEDS: XALATAN OPHTHALMIC SOLUTION 1 DROP BOTH EYES (20:19)
[2024-09-30 22:06] LABS: Glucose - Point of Care 202 mg/dl (70-99)
[2024-09-30 23:18] VITALS: BP 138/79
[2024-10-01 04:23] VITALS: BP 155/92
[2024-10-01] MEDS: SYNTHROID 100 MCG PO (04:26)
[2024-10-01] MEDS: TYLENOL 650 MG PO ×4 (04:26→23:07)
[2024-10-01 06:00] VITALS: BMI 49.1
[2024-10-01 06:52] LABS: Venous Blood Gas B.E. 23.2 mmol/L (-4 to +4); Venous Blood Gas HCO3 50.5 mmol/L (22-27); Venous Blood Gas O2 Sat % 98.7 %; Venous Blood Gas pH 7.46 (7.32-7.43); Venous Blood Gas pO2 95 mmHg (30-50)
[2024-10-01 06:56] LABS: Venous Blood Gas pCO2 71 mmHg (35-48)
[2024-10-01 07:00] VITALS: BP 130/88
[2024-10-01 07:09] LABS: Hematocrit 31.4 % (37.0-47.0); Hemoglobin 9.5 g/dL (12.0-16.0); Mean Corp Hgb Conc. 30.3 g/dL (33.0-37.0); Mean Corpuscular Hgb 25.2 pg (27.0-31.0); Mean Corpuscular Volume 83.3 fL (81.0-99.0); Mean Platelet Volume 10.8 fL (7.4-10.4); Platelet Count 283 10^3/uL (130-400); Red Blood Cell Count 3.77 10^6/uL (4.20-5.40); Red Cell Dist. Width 15.5 % (11.5-14.5); White Blood Cell Count 7.8 10^3/uL (4.8-10.8)
[2024-10-01 07:15] LABS: Blood Urea Nitrogen 37 mg/dl (7-17); Calcium 8.5 mg/dl (8.4-10.2); Chloride 87 mmol/L (98-107); Estimated Creatinine Clearance 52 ml/min; Glucose 140 mg/dl (70-99); Magnesium 1.9 mg/dl (1.6-2.3); Phosphorus 3.6 mg/dl (2.5-4.5); Potassium 3.4 mmol/L (3.5-5.1); Sodium 141 mmol/L (135-145); eGFR 51.43
--- NOTE | 2024-10-01 07:54 | W.PN.HOSP.TC ---
Today's Communication/Plan
-
see a/p
Assessment / Plan
Assessment / Plan
Physical Exam
General: No acute distress, appears comfortable at this time, Morbidly Obese
HEENT: NormoCephalic, Moist mucous membranes and Atraumatic
Respiratory: Clear to auscultation b/l, distant breath sounds, on nasal cannula oxygen supplementation
Cardiac: S1/S2 and Regular Rhythm; No Murmur or Rub
GI: Soft, Non Tender, Non Distended and Normal Bowel Sounds; No Organomegaly
Musculoskeletal: No Clubbing, No Cyanosis, b/l LE edema
Skin: No Rash
Neuro: AO x 3 Conversant Coherent
Psych: Calm
79F HFpEF COPD afib Eliquis sjogren syndrome IBS baseline rolling walker CROW CPAP here for Acute on Chronic HFpEF.
#acute hypoxic respiratory failure CHF exacerbation
-BNP 1430
-strict I &O, daily weight, fluid restriction
-recent ECHO with EF of 65-70%
-Spironolactone Restarted low dose 12.5 mg (previously discontinued d/t hypercalcemia per nephro recommendations last hospitalization, Hypercalcemia since resolved)
-cardiology consult appreciated IV Bumex switched to Lasix 80 mg BID, metolazone prn, losartan restarted/cont
-COVID.flu negative
-chest x ray appreciated limited examination, probable CHF, no evidence pneumonia
-continue supplemental oxygen to keep sat >92
-wean as tolerated
#Arthritis
prn Tylenol Tramadol
#Intermittent Hematuria unclear etiology
#Recent hx right renal stone ureter stent placement since removed
no flank pain
initial hold on Eliquis as per Cardio, H&H however consistently stable, could consider resuming Eliquis with close monitoring
urinalysis noted suggestive of UTI however patient asymptomatic, monitor off abx for now
Urology eval appreciated follow urine culture, consider CT if urine cx neg
#Constipation
cont prn laxatives
scheduled Senokot hold if diarrhea
#Hypokalemia
monitor and replete as necessary
#CROW/OHS
#Hypercapnia
#Asthma, hx ILD
-CPAP pt's own machine
-follow up AM VBG
-Pulm aleksandaral appreciated symbicort started/cont
# Hyperlipidemia
- statin continued
# History of asthma
- Singular continued, nebs from home continued
#anemia of chornic disease
-H&H stable
-no active bleeding
-ctm
#NIDDM:
-Sliding scale insulin for now
-hold Januvia and metformin
-Accu-Cheks
#Persistent A-fib
-EKG with atrial fib
-Continue home diltiazem 240 mg p.o. 3 times daily for rate control
-Eliquis on hold as per Cardio d/t hematuria as above
#Hypothyroidism:
-Continue home levothyroxine 100 mcg daily
#Hyperparathyroidism
cont sensipar
Calcium in wnl
#Lower extremity venous insufficiency and lymphedema
PT/OT appreciated home health
CODE STATUS: Full code
discussed with patient, patient's Alphonso, and patient's daughter Iesha (requesting daily updates)
I spent a total of 50 minutes with the patient or on the floor. More than 50% of this time involved counseling and coordination of care.
Anticipated Discharge: 24 - 48 hours
Subjective/Interval History
-
Date of Service: October 01, 2024
No acute distress sitting up comfortably in chair. Reports sleeping well last night. Arthritic pain persists. Constipation improving. Intermittent painless hematuria persists.
Objective Data
-
Labs:
Laboratory Results
10/01/24
06:42
WBC 7.8
Hgb 9.5 L
Hct 31.4 L
Plt Count 283
Sodium 141
Potassium 3.4 L
Chloride 87 L
Carbon Dioxide Pending
BUN 37 H
Creatinine 1.1 H
Glucose 140 H
Calcium 8.5
Vital Signs:
Vital Signs
Temp Pulse Resp BP Pulse Ox
98.1 F 113 18 155/92 94
10/01/24 04:23 10/01/24 04:23 10/01/24 04:23 10/01/24 04:23 10/01/24 04:23
I&O
09/30/24 10/01/24 10/02/24
06:59 06:59 06:59
Intake Total 420 / 420 1640 / 1640
Output Total 1050 / 1050 2500 / 2500
Balance -630 / -630 -860 / -860
[2024-10-01 07:59] LABS: Glucose - Point of Care 132 mg/dl (70-99)
[2024-10-01] MEDS: PULMICORT 0.5 MG INH (08:08)
[2024-10-01 08:17] LABS: Carbon Dioxide 42 mmol/L (22-30)
[2024-10-01] MEDS: NOVOLOG FLEXPEN-LOW RESISTANCE SC (08:59)
[2024-10-01] MEDS: MAGNESIUM OXIDE 500 MG PO ×2 (09:00→19:57)
[2024-10-01] MEDS: SENOKOT 8.6 MG PO ×2 (09:00→19:58)
[2024-10-01] MEDS: CARDIZEM CD 240 MG PO ×2 (09:00→19:58)
[2024-10-01] MEDS: ZYRTEC 10 MG PO (09:01)
[2024-10-01] MEDS: VITAMIN B-12 1000 MCG PO (09:01)
[2024-10-01] MEDS: SENSIPAR 30 MG PO (09:01)
[2024-10-01] MEDS: ALDACTONE 12.5 MG PO (09:01)
[2024-10-01] MEDS: KCL 20 MEQ PO ×2 (09:01→19:58)
[2024-10-01] MEDS: COZAAR 25 MG PO (09:01)
[2024-10-01] MEDS: PROTONIX 40 MG PO (09:01)
[2024-10-01] MEDS: TRIAMCINOLONE ACETONIDE 0.1% CREAM 1 APPLIC TOPICAL (09:03)
[2024-10-01] MEDS: LASIX 80 MG IV ×2 (09:04→15:42)
[2024-10-01] MEDS: OCEAN, SALINE MIST 1 SPRAYS NASAL ×4 (09:04→19:59)
[2024-10-01 11:00] VITALS: BP 118/72
--- NOTE | 2024-10-01 12:23 | W.PN.CARDCBS ---
Today's Communication / Plan
-
Intensify diuresis with addition of metolazone x 1 dose today
Add Toprol-XL 25 mg daily for better rate control
Impression / Plan
-
PCP: Dr. Lake
Card: Dr. Eitan Bullock
Impression:
Admitted with acute HFpEF
Recent admission for ureteral stone and acute HF 08/11/24 until 08/18/24
Recent admission for Afib and acute HF 07/01/24 until 07/14/24
Acute HFpEF
Persistent Afib
8% burden on monitor 12/2023 and now persistent Afib since at least 07/01/24
Chronic Eliquis OAC
CROW/OHS on nocturnal CPAP with 2 L NC as an outpatient
ILD
DM 2
Severe morbid obesity, BMI 50.3
Mild to moderate aortic stenosis
Hypertension
Hypercholesterolemia
Venous insufficiency
Depression
Multiple medical allergies
Echo 07/04/2024: hyperdynamic left ventricular systolic function ejection fraction 65 to 70%. Moderate aortic stenosis with peak and mean gradients of 40 and 21 with a calculated aortic valve area of 1 cm2. Trivial pericardial effusion and no
significant valvular disease overall unchanged from prior echocardiogram
Plan:
Presented with SOB. Admitted with acute heart failure exacerbation and marked volume overload.
-IV lasix 80mg BID. Also was given a one time dose of metolazone 2.5mg x1 on 09/29.
Initially with some weight loss: down to 268 lbs 09/30 (on adm wt was 279 lbs and last DC wt was 263 lbs). But weight essentially unchanged today at 268 pounds and still volume overloaded.
Will give metolazone 2.5 mg today to improve diuresis.
Creatinine is up slightly to 1.1 so we will need to follow this closely.
Potassium is 3.4 and magnesium is 1.9, will replete
-Previously losartan and spironolactone were held due to FAVIAN w/ ureteral stone. Losartan and spironolactone resumed 09/28.
-Not on SGLT2 inhibitor due to UTI.
Persistent afib noted since at least 07/01/24.
-Poor candidate for amiodarone due to ILD and patient is at high risk of recurrent afib w/ obesity, CROW/OHS, HTN, and DM2, so plan has been for rate control.
-Continue cardizem 240mg BID. Rates are still somewhat rapid.
Will add Toprol-XL 25 mg p.o. daily
-Eliquis 5mg BID on hold given hematuria (recurrent). Hemoglobin is rather stable and I would have no objection to resuming anticoagulation if and when okay with primary service and urology
Hematuria noted 09/29/2024 Eliquis was held starting 09/29.
-Hgb on 09/30 is essentially stable at 10.1.
-Will hold Eliquis for now. If Hgb does not cont to fall / hematuria resolves, will resume.
-Seen by urology this admission and it is felt that hematuria is suspected to be from UTI. Previous hematuria during 07/2024 admission was due to ureteral stone that was treated.
Total time spent today was 51 minutes in preparing to see the patient, seeing the patient and coordination of care. This included review of recent laboratory evaluations, cardiac testing, imaging studies, primary care rtecords, specialty
consultations, hospital records, as well as personally interviewing and examining the patient, which included discussion of their tests, review/ordering medications, and communicating with other healthcare professionals and also treatment planning
as well as counseling.
HPI: Patient came to the ER yesterday with increased SOB and is now admitted with acute HF and cardiology has been consulted. Patient was admitted with acute HFpEF 07/01/24 until 07/14/24 and diuresed 13 lbs for a d/c weight of 275 lbs. Prior to that
admission patient was taking Lasix 20 mg PO BID and then during that admission the patient was diuresed with Lasix IV and then transitioned to Bumex 1 mg PO daily at time of d/c. Patient was readmitted with acute HF and hematuria 08/11/24 until
08/18/24. Patient was treated for ureteral calculi during that admission and was also diuresed with a d/c weight of 263 lbs which was lower than her dry weight from the 07/14/24 d/c. Patient was again d/c'd on Bumex 1 mg PO daily and had a
telemedicine visit 09/21/24 and reported weight gain, edema and increased SOB. Patient had previously called the office and had her Bumex dose increased to 1 mg PO BID and during that office visit her Bumex was increased further to 2 mg PO BID, but
no change in urine output or edema per patient so she came to the ER last night. Patient reports that despite increased urine output since admission with Bumex 1 mg IV BID that her weight went up, but standing scale weight this morning is lower. No
improvement in LE edema. Still SOB. Patient also reporting increased HR into the 140s at rest at home.
Progress Note - Coat Examiner
Subjective
Date of Service: October 01, 2024
She tells me that while she still feels like she aches all over she is feeling well enough that she would like to go home soon. She tells me that her shortness of breath ' is the same' while at rest and she really has not been up and ambulating
Objective
Labs:
10/01/24 06:42
10/01/24 06:42
Labs
Hgb 9.5 g/dL (12.0-16.0) L 10/01/24 06:42
Hct 31.4 % (37.0-47.0) L 10/01/24 06:42
Plt Count 283 10^3/uL (130-400) 10/01/24 06:42
Sodium 141 mmol/L (135-145) 10/01/24 06:42
Potassium 3.4 mmol/L (3.5-5.1) L 10/01/24 06:42
BUN 37 mg/dl (7-17) H 10/01/24 06:42
Creatinine 1.1 mg/dL (0.6-1.0) H 10/01/24 06:42
Glucose 140 mg/dl (70-99) H 10/01/24 06:42
Vital Signs and I&O:
Vital Signs
Temp Pulse Resp BP Pulse Ox
97.3 F 104 24 118/72 96
10/01/24 11:00 10/01/24 11:00 10/01/24 11:00 10/01/24 11:00 10/01/24 11:00
Vital Signs
Temp Pulse Resp BP Pulse Ox
97.3 F 104 24 118/72 96
10/01/24 11:00 10/01/24 11:00 10/01/24 11:00 10/01/24 11:00 10/01/24 11:00
Intake & Output
09/29/24 09/30/24 10/01/24 10/02/24
06:59 06:59 06:59 06:59
Intake Total 1680 / 1680 420 / 420 1640 / 1640
Output Total 1400 / 1400 1050 / 1050 2500 / 2500
Balance 280 / 280 -630 / -630 -860 / -860
Physical Exam
Physical Exam
Morbidly obese sitting in chair appears fatigued
Irregular rate and rhythm with normal S1 and S2, no S3 no S4 there is a grade 1/6 apical holosystolic murmur
Lungs poor inspiratory effort otherwise clear bilaterally
Extremities +3 pretibial edema bilaterally
[2024-10-01 12:26] LABS: Glucose - Point of Care 174 mg/dl (70-99)
[2024-10-01] MEDS: KCL 40 MEQ PO (12:42)
[2024-10-01] MEDS: NOVOLOG FLEXPEN-LOW RESISTANCE 300 UNITS SC (12:42)
[2024-10-01] MEDS: ZAROXOLYN 2.5 MG PO (12:43)
[2024-10-01] MEDS: TOPROL XL 25 MG PO (12:43)
--- NOTE | 2024-10-01 13:22 | W.PN.URO.CBU ---
Today's Communication / Plan
-
Rec: await urine C&S; if no infection, then CT to look for recurrent urolithiasis
Assessment / Plan
-
Hematuria is suspected to be from an UTI, based on UA results.
Diagnosis
-
Date of Service: October 01, 2024
-
Patient Diagnosis:
Hematuria
Objective
-
Vital Signs
Temp Pulse Resp BP Pulse Ox
97.3 F 104 24 118/72 96
10/01/24 11:00 10/01/24 11:00 10/01/24 11:00 10/01/24 11:00 10/01/24 11:00
Intake and Output
09/30/24 10/01/24 10/02/24
06:59 06:59 06:59
Intake Total 420 / 420 1640 / 1640
Output Total 1050 / 1050 2500 / 2500
Balance -630 / -630 -860 / -860
Intake:
Oral fluids 420 / 420 1640 / 1640
Output:
Urine, Voided 1050 / 1050 2500 / 2500
Other:
Number of approximated MODERATE 2
amounts of urine
Laboratory Results
10/01/24 06:42
10/01/24 06:42
urine cx: pending
Physical Exam
-
General - well developed, well nourished, no acute distress
Chest - clear bilaterally
Abdomen - soft, non-tender, positive bowel sounds, no CVAT, no incisional pain or distention
Genitalia - normal
Rectal - normal
Skin - warm & dry with no rash
Neuro - AOx3, no motor deficits
Extremities - no clubbing, no cyanosis, no edema
Incision - clean, dry
Dressing - clean, dry, intact
--- NOTE | 2024-10-01 14:50 | CON.PUL ---
Consultation
Consultation Request
Date/Time Consultation Requested: 10/01/2024 - 932
Date/Time Consultation Performed: 10/01/2024 - 1230
Requesting Provider: Dr. Escobedo
Performing Provider: Dr. Castillo
Reason for Consultation: Acute hypoxia
Medical History
-
Chief Complaint: SOB
History of Present Illness:
79-year-old female with a past medical history of asthma, hypertension, hypothyroidism, DM type II, A-fib on Eliquis, CROW on CPAP, ILD, chronic hypoxic respiratory failure who presents with shortness of breath for 3 days. She was experiencing
worsening lower extremity edema, abdominal edema and orthopnea. She says she was getting 2 pounds a day. Also had a cough with productive brown phlegm for 1 week. Previously hospitalized from 08/11 - 08/18/2024 due to hematuria which was thought to
be due to right ureteral stone in setting of Eliquis, and urology performed right ureteral stent placement on 08/12, stent was removed on 08/17. She was admitted to the hospitalist service for acute decompensated heart failure. Bumex was continued.
Her nebulizers from home for history of asthma were also resumed and CPAP for history of CROW. Blood gas obtained on the morning of 10/01 showed alkalemia with pH 7.46 and pCO2 71. She had not been using the hospital CPAP machine for a few nights she
is now on her home CPAP. Pulmonary now consulted for additional management/recommendations.
When I saw the patient, she was resting in chair in no acute distress, on 2 L/min saturating 94%. She says she does not use home oxygen, and she uses her CPAP with sleep that has bled with oxygen. She has been using budesonide at home for asthma
but she says it is not working. She would like to go back to either Breo or a different inhaler. She currently denies chest pain, FLORES, nausea, fevers or chills.
She follows with us in the office with Dr. Castaneda, last visit 03/09/2024. She has either canceled or no showed additional visits with the most recent cancellation on 07/25/2024. She is continued on Breo and regarding her history of ILD she has
bilateral patchy mosaic attenuation with scattered nodules and minimal bronchiolitis and was advised to follow with rheumatology. Also has a known left lower lobe 6 mm nodule seen in April 2020 however she was unable to get repeat CT given her
weight. She was told to continue with 2 L with activity and 2 L bled into her CPAP.
PMHx: Asthma, hypertension, hypothyroidism, psoriasis, hyperlipidemia, diverticulosis, IBS, glaucoma, DM type II, history of ulcerative colitis, rosacea, fibrocystic breast, history of right lower extremity cellulitis, A-fib on Eliquis, CROW on CPAP,
interstitial lung disease, chronic hypoxic respiratory failure on 2 L/min with activity
PSHx: , D&C hysteroscopy, herniated disc surgery, kidney stone removal surgery
Past Medical History
Past Medical History: Other (Above as per HPI)
Past Surgical History: Other (Above as per HPI)
Social History
Tobacco: Former Smoker
Alcohol: None
Drug: None
Personal:
Living: With Family
Family History
Family History: CAD (Father + mother), Cancer (Mother: Non-Hodgkin's lymphoma, paternal + maternal aunts: Breast cancer, sibling: Liver cancer)), Hypertension (Father passed mother) and Other (Paternal grandfather + maternal grandmother: Stroke)
Allergies / Home Medications
Allergies
Allergy/AdvReac Type Severity Reaction Status Date / Time
strawberry Allergy Unknown Unknown Verified 09/30/24 13:21
alendronate sodium Allergy esophagus Verified 09/26/24 15:14
[From Fosamax] spasms
cephalexin [From Keflex] Allergy throat Verified 09/26/24 15:14
closed
clarithromycin [From Biaxin] Allergy Hives Verified 09/26/24 15:14
erythromycin base Allergy Rash, Verified 09/26/24 15:14
diarrhea
fentanyl Allergy difficulty Verified 09/26/24 15:14
awakening
from
surgery
fish oil Allergy Unknown Verified 09/26/24 15:14
house dust Allergy sneeze Verified 09/26/24 15:14
hyoscyamine Allergy throat Verified 09/26/24 15:14
tightening
influenza virus vaccine, Allergy Unknown Verified 09/26/24 15:14
specific
Iodinated Contrast Media Allergy Unknown Verified 09/26/24 15:14
latex Allergy Rash Verified 09/26/24 15:14
levalbuterol [From Xopenex] Allergy 'bee sting Verified 09/26/24 15:14
sensation
all over'
levofloxacin [From Levaquin] Allergy difficulty Verified 09/26/24 15:14
breathing
mold Allergy rash/hives/ Verified 09/26/24 15:14
sob
Penicillins Allergy Hives Verified 09/26/24 15:14
pneumococcal vaccine Allergy Rash Verified 09/26/24 15:14
shellfish derived Allergy hives/difficulty Verified 09/26/24 15:14
breathing
tetanus and diphtheria Allergy wheezing Verified 09/26/24 15:14
toxoids
vancomycin Allergy Shortness Verified 09/26/24 15:14
of Breath
Home Medications
�Medication �Instructions �Recorded �Confirmed �Last Taken �Type
budesonide 0.5 mg/2 mL suspension 0.5 mg inhalation R DAILY 07/01/24 09/26/24 08/10/24 History
for nebulization Lung/Breathing Issues
sodium chloride 0.65 % nasal spray 1 spray intranasal TIDPRN PRN 07/01/24 09/26/24 Unknown History
aerosol dryness
apixaban 5 mg tablet (Eliquis) 5 mg PO BID Blood clot 07/14/24 09/26/24 08/10/24 Rx
prevention/tx #0 tabs
atorvastatin 10 mg tablet 10 mg PO QPM High cholesterol 30 07/14/24 09/26/24 08/10/24 Rx
days #30 tabs
bumetanide 1 mg tablet 1 mg PO DAILY Fluid 07/14/24 09/26/24 08/10/24 Rx
retention/Swelling #30 tabs
cetirizine 10 mg tablet 10 mg PO DAILY Allergies #0 tabs 07/14/24 09/26/24 08/10/24 Rx
cyanocobalamin (vitamin B-12) 1,000 mcg PO DAILY Supplement #0 07/14/24 09/26/24 08/10/24 Rx
1,000 mcg tablet (Vitamin B-12) tabs
diltiazem HCl 240 mg 240 mg PO TID Arrhythmia #0 caps 07/14/24 09/26/24 08/11/24 Rx
capsule,extended release 24 hr
mesalamine 1.2 gram tablet,delayed 2.4 g (2 x 1.2 gram) PO DAILY 07/14/24 09/26/24 08/10/24 Rx
release Gastrointestinal issue #0 tabs
montelukast 10 mg tablet 10 mg PO QPM Allergies #0 tabs 07/14/24 09/26/24 08/10/24 Rx
sitagliptin phosphate 100 mg 100 mg PO DAILY Diabetes #0 tabs 07/14/24 09/26/24 08/10/24 Rx
tablet (Januvia)
acetaminophen 650 mg 650 mg PO DAILYPRN PRN mild pain 08/11/24 09/26/24 08/08/24 History
tablet,extended release
docusate sodium 100 mg capsule 100 mg PO DAILYPRN PRN constipation 08/11/24 09/26/24 Unknown History
levothyroxine 100 mcg tablet 100 mcg PO DAILY Thyroid 08/11/24 09/26/24 08/11/24 History
metformin 500 mg tablet 500 mg PO BID Diabetes 08/11/24 09/26/24 08/10/24 History
methylcellulose (laxative) 500 mg 250 mg PO HSPRN PRN fiber 08/11/24 09/26/24 08/10/24 History
tablet (Citrucel) suppliment
pantoprazole 40 mg tablet,delayed 40 mg PO DAILY Gastrointestinal 08/11/24 09/26/24 08/10/24 History
release issue
travoprost 0.004 % eye drops 1 drp BOTH EYES HS Eye Condition 08/11/24 09/26/24 08/10/24 History
triamcinolone acetonide 0.1 % 1 applic topical DAILY both lower 08/11/24 09/26/24 08/10/24 History
topical cream legs
triamcinolone acetonide 55 mcg 1 spray intranasal HS Congestion 08/11/24 09/26/24 08/10/24 History
nasal spray aerosol (Nasacort)
vitamin A and D 1 applic topical DAILY b/l buttock 08/11/24 09/26/24 08/10/24 History
sore
cinacalcet 30 mg tablet 30 mg PO DAILY #30 tabs 08/18/24 09/26/24 Unknown Rx
Review of Systems
-
History Source: Patient
All other systems: Negative unless noted
Vitals / Labs / Diagnostic Testing
Vital Signs
Temp Pulse Resp BP Pulse Ox
97.9 F 122 18 130/88 3
10/01/24 07:00 10/01/24 08:14 10/01/24 08:14 10/01/24 07:00 10/01/24 08:14
Lab Data
10/01/24 06:42
10/01/24 06:42
Laboratory Results
09/30/24
13:35
pH Cancelled
pCO2 Cancelled
pO2 Cancelled
HCO3 Cancelled
O2 Delivery Level Cancelled
Diagnostic Testing:
Physical Exam
-
HEENT: Normocephalic, Anicteric and Other (Thick neck)
Cardiovascular: S1/S2 and Peripheral Edema (+1 lower extremity edema bilaterally)
Respiratory: Wheeze (negative), Rales (Bilaterally), Rhonchi (negative) and Non-Labored Respirations
GI: Soft, Distended (Abdominal obesity), Non Tender and Normal Bowel Sounds
Neurology: AO x 3 and Tremors (negative)
Skin: Warm and Dry
General: Respiratory Distress (negative), Comfortable, Fever (negative) and Chills (negative)
Assessment
-
Assessment: 79-year-old female with a past medical history of asthma, hypertension, hypothyroidism, DM type II, A-fib on Eliquis, CROW on CPAP, ILD, chronic hypoxic respiratory failure who presents with shortness of breath for 3 days. She was
experiencing worsening lower extremity edema, abdominal edema and orthopnea. She says she was getting 2 pounds a day. Also had a cough with productive brown phlegm for 1 week. Previously hospitalized from 08/11 - 08/18/2024 due to hematuria which
was thought to be due to right ureteral stone in setting of Eliquis, and urology performed right ureteral stent placement on 08/12, stent was removed on 08/17. She was admitted to the hospitalist service for acute decompensated heart failure. Bumex
was continued. Her nebulizers from home for history of asthma were also resumed and CPAP for history of CROW. Blood gas obtained on the morning of 10/01 showed alkalemia with pH 7.46 and pCO2 71. She had not been using the hospital CPAP machine for
a few nights she is now on her home CPAP. Pulmonary now consulted for additional management/recommendations.
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
Eliquis, CROW on CPAP, interstitial lung disease, chronic hypoxic respiratory failure on 2 L/min with activity
Impression:
#Acute respiratory failure with hypoxia due to acute HFpEF
#Chronic respiratory failure with hypercapnia due to OHS
#Acute decompensated heart failure with increased bilateral interstitial/acinar opacities seen on CXR from 09/26/2024
#UTI
#Metabolic alkalosis due to chronic hypercapnic respiratory failure/OHS in setting of diuresis
#Chronic anemia
#Chronic diastolic heart failure with TTE from 07/04/2024 showing LVEF 65 to 70% with moderate aortic stenosis with peak/mean gradients 40/21 mmHg, and PASP mildly elevated at 36 mmHg
#Severe morbid obesity with BMI: 49.1
#History of asthma currently on nebulized budesonide
#CROW/OHS on nocturnal CPAP as an outpatient bled with 2L/min
#DM type II
#History of ulcerative colitis
#History of ILD with CT chest from 05/06/2021 showing bilateral mosaic attenuation with scattered subpleural nodules and bronchiolitis
#Paroxysmal A-fib with RVR on Eliquis
#Chronic lymphedema
Plan:
- Continue IV lasix with 80mg BID and maintain net negative fluid balance
- Last echo checked on 07/04/24 showing hyperdynamic LV systolic function with LVEF 65-70%, with normal RV size and function, moderate with peak/mean gradients of 40/21 mmHg, respectively, with trace MR, and mild TR with a trivial pericardial
effusion --> no significant change compared to prior echo in January 2024
- Continue with nocturnal CPAP (pt's home machine) and prn during the day; titrate O2 flow rate to maintain SpO2 >90%
- Check blood gas tomorrow to assure pH and pCO2 remain stable
- Continue to monitor WBC and trend temperature curve, and if she spikes a fever then would noonan-culture and consider starting empiric antibiotics at that time
- prn nebulized bronchodilators - not currently bronchospastic
- Urology following for UTI and hematuria
- Defer starting antibiotics to primary team
- Follow-up urine culture
- Monitor for hematuria
-She says that the nebulized budesonide is not helping her breathing. She had felt better previously on the Breo. We did discuss starting a different inhaler called Striverdi in addition to budesonide, but she wishes to try a handheld inhaler
first. I will start her on Symbicort 160 mcg 2 puffs BID (rinse mouth after use) to be used with a spacer while she is hospitalized, and she should be discharged home with this as well. She will follow-up with pulmonary office with Dr. Castaneda to
see how she is doing and to make any changes, if needed.
- A fib management per cardiology
- Given her history of ILD, would avoid amiodarone if possible
- Goal HR<110bpm
- Incentive spirometer encouraged q1hr while awake
- Replete electrolytes with K>4, Mg>2
- Trend H/H and transfuse if needed to keep Hb>7g/dL; keep plt>20k, unless there is concern for bleeding then keep plt>50k
- Maintain euglycemia with goal BG >100 and <180
- DVT ppx: Eliquis
Pulmonary service will continue to follow along. Patient should follow-up with us in the office she had previously seen Dr. Castaneda. Her last visit was 03/09/2024.
Data:
CXR 09/26/2024: Limited examination - probable congestive heart failure. No focal dense consolidation to suggest pneumonia.
Total time spent today was 58 minutes for this encounter. Time includes reviewing laboratory test/imaging results, reviewing pertinent medical records, obtaining and reviewing medical history, performing an appropriate exam, ordering medications,
tests and procedures. Time also includes documentation of this encounter, coordinating patient care and communicating with other healthcare professionals. Total time does not include separately billed tests performed on this date of service.
[2024-10-01 15:00] VITALS: BP 104/63
[2024-10-01 17:40] LABS: Glucose - Point of Care 176 mg/dl (70-99)
[2024-10-01] MEDS: NOVOLOG FLEXPEN-LOW RESISTANCE 1 UNITS SC (17:48)
[2024-10-01] MEDS: LIPITOR 10 MG PO (17:49)
[2024-10-01] MEDS: SINGULAIR 10 MG PO (17:49)
[2024-10-01] MEDS: XALATAN OPHTHALMIC SOLUTION 1 DROP BOTH EYES (19:59)
[2024-10-01 20:00] VITALS: BP 131/73
[2024-10-01 21:34] LABS: Glucose - Point of Care 176 mg/dl (70-99)
[2024-10-01 23:00] VITALS: BP 95/58
[2024-10-02] VITALS (7 sets, daily range): BP systolic 108–115; BP diastolic 52–73; PULSE 99; BMI 49.0
[2024-10-02] MEDS: SYNTHROID 100 MCG PO (06:00)
[2024-10-02] MEDS: SYMBICORT 160/4.5 MCG INHALER 2 PUFF INH ×2 (07:26→19:18)
[2024-10-02 07:35] LABS: Glucose - Point of Care 147 mg/dl (70-99)
[2024-10-02 07:50] LABS: Venous Blood Gas B.E. 23.3 mmol/L (-4 to +4); Venous Blood Gas HCO3 51.9 mmol/L (22-27); Venous Blood Gas O2 Sat % 86.9 %; Venous Blood Gas pH 7.42 (7.32-7.43); Venous Blood Gas pO2 55 mmHg (30-50)
[2024-10-02 07:57] LABS: Venous Blood Gas pCO2 80 mmHg (35-48)
--- NOTE | 2024-10-02 08:53 | W.PN.URO.CBU ---
Today's Communication / Plan
-
repeat urine c&S
Assessment / Plan
-
Hematuria is suspected to be from an UTI, based on UA results; microbiology is unhelpful
no current sx to suggest active stone
Diagnosis
-
Date of Service: October 02, 2024
-
Patient Diagnosis:
Hematuria
h/o urolithiasis
Subjective
-
no stone sx
Objective
-
Vital Signs
Temp Pulse Resp BP Pulse Ox
97.8 F 105 18 115/63 98
10/02/24 07:00 10/02/24 07:33 10/02/24 07:33 10/02/24 07:00 10/02/24 07:33
Intake and Output
10/01/24 10/02/24 10/03/24
06:59 06:59 06:59
Intake Total 1640 / 1640 360 / 360
Output Total 2500 / 2500 2009
Balance -860 / -860 -1650 / -1650
Intake:
Oral fluids 1640 / 1640 360 / 360
Output:
Urine, Voided 2500 / 2500 2009
Other:
Number of approximated MODERATE 2
amounts of urine
urine micro: inconclusive
Physical Exam
-
General - well developed, well nourished, no acute distress
Chest - clear bilaterally
Abdomen - soft, non-tender, positive bowel sounds, no CVAT, no incisional pain or distention
Genitalia - normal
Rectal - normal
Skin - warm & dry with no rash
Neuro - AOx3, no motor deficits
Extremities - no clubbing, no cyanosis, no edema
Incision - clean, dry
Dressing - clean, dry, intact
[2024-10-02 08:56] LABS: Hematocrit 34.5 % (37.0-47.0); Hemoglobin 10.3 g/dL (12.0-16.0); Mean Corp Hgb Conc. 29.9 g/dL (33.0-37.0); Mean Corpuscular Hgb 25.1 pg (27.0-31.0); Mean Corpuscular Volume 83.9 fL (81.0-99.0); Mean Platelet Volume 11.1 fL (7.4-10.4); Platelet Count 293 10^3/uL (130-400); Red Blood Cell Count 4.11 10^6/uL (4.20-5.40); Red Cell Dist. Width 15.4 % (11.5-14.5); White Blood Cell Count 7.8 10^3/uL (4.8-10.8)
[2024-10-02 08:59] LABS: NT-proBNP 1360 pg/ml
[2024-10-02] MEDS: NOVOLOG FLEXPEN-LOW RESISTANCE SC (09:20)
[2024-10-02] MEDS: SENOKOT 8.6 MG PO ×2 (09:21→22:25)
[2024-10-02] MEDS: SENSIPAR 30 MG PO (09:21)
[2024-10-02] MEDS: TOPROL XL 25 MG PO (09:21)
[2024-10-02] MEDS: CARDIZEM CD 240 MG PO ×2 (09:21→22:25)
[2024-10-02] MEDS: PROTONIX 40 MG PO (09:21)
[2024-10-02] MEDS: COZAAR 25 MG PO (09:21)
[2024-10-02] MEDS: MAGNESIUM OXIDE 500 MG PO ×2 (09:21→22:25)
[2024-10-02] MEDS: VITAMIN B-12 1000 MCG PO (09:22)
[2024-10-02] MEDS: ALDACTONE 12.5 MG PO (09:22)
[2024-10-02] MEDS: ZYRTEC 10 MG PO (09:22)
[2024-10-02] MEDS: TRIAMCINOLONE ACETONIDE 0.1% CREAM 1 APPLIC TOPICAL (09:22)
[2024-10-02] MEDS: KCL 20 MEQ PO ×2 (09:22→22:25)
[2024-10-02] MEDS: OCEAN, SALINE MIST 1 SPRAYS NASAL ×4 (09:23→22:26)
[2024-10-02] MEDS: LASIX 80 MG IV ×2 (09:24→17:19)
[2024-10-02 09:32] LABS: Blood Urea Nitrogen 40 mg/dl (7-17); Calcium 9.1 mg/dl (8.4-10.2); Chloride 84 mmol/L (98-107); Estimated Creatinine Clearance 44 ml/min; Glucose 143 mg/dl (70-99); Phosphorus 3.8 mg/dl (2.5-4.5); Sodium 140 mmol/L (135-145); eGFR 42.09
[2024-10-02] MEDS: TYLENOL 650 MG PO (09:35)
--- NOTE | 2024-10-02 09:40 | W.PN.CARDCBS ---
Today's Communication / Plan
-
Continue IV Lasix but follow renal function closely
Creatinine 1.3 on 10/02
Weight was 267 pounds on 10/02 and was 263 pounds on discharge in July 2024
Eliquis on hold due to hematuria and urology is following
Resume Eliquis when okay with urology
Impression / Plan
-
PCP: Dr. Lake
Card: Dr. Eitan Bullock
Impression:
Admitted with acute HFpEF
Recent admission for ureteral stone and acute HF 08/11/24 until 08/18/24
Recent admission for Afib and acute HF 07/01/24 until 07/14/24
Acute HFpEF
Persistent Afib
8% burden on monitor 12/2023 and now persistent Afib since at least 07/01/24
Chronic Eliquis OAC
CROW/OHS on nocturnal CPAP with 2 L NC as an outpatient
ILD
DM 2
Severe morbid obesity, BMI 50.3
Mild to moderate aortic stenosis
Hypertension
Hypercholesterolemia
Venous insufficiency
Depression
Multiple medical allergies
Echo 07/04/2024: hyperdynamic left ventricular systolic function ejection fraction 65 to 70%. Moderate aortic stenosis with peak and mean gradients of 40 and 21 with a calculated aortic valve area of 1 cm2. Trivial pericardial effusion and no
significant valvular disease overall unchanged from prior echocardiogram
Plan:
She remains on 3 L of oxygen
Hard to determine how much of hypoxia is due to CHF
Of note CO2 is 80 on ABG
She was given a dose of metolazone on 10/01 with questionable response
Creatinine has increased to 1.3
Follow renal function closely may need to consider holding IV Lasix
We will continue IV Lasix for now. Weight was 267 pounds on 10/02 and of note was 263 pounds on discharge in July 2024
Might need to consider right heart catheterization
Previously losartan and spironolactone were held due to FAVIAN w/ ureteral stone. Losartan and spironolactone resumed 09/28.
Not on SGLT2 inhibitor due to UTI.
Rate control in A-fib is reasonable with Toprol added
Eliquis has been held due to hematuria and urology is following
Resume Eliquis when okay with urology
HPI: Patient came to the ER yesterday with increased SOB and is now admitted with acute HF and cardiology has been consulted. Patient was admitted with acute HFpEF 07/01/24 until 07/14/24 and diuresed 13 lbs for a d/c weight of 275 lbs. Prior to that
admission patient was taking Lasix 20 mg PO BID and then during that admission the patient was diuresed with Lasix IV and then transitioned to Bumex 1 mg PO daily at time of d/c. Patient was readmitted with acute HF and hematuria 08/11/24 until
08/18/24. Patient was treated for ureteral calculi during that admission and was also diuresed with a d/c weight of 263 lbs which was lower than her dry weight from the 07/14/24 d/c. Patient was again d/c'd on Bumex 1 mg PO daily and had a
telemedicine visit 09/21/24 and reported weight gain, edema and increased SOB. Patient had previously called the office and had her Bumex dose increased to 1 mg PO BID and during that office visit her Bumex was increased further to 2 mg PO BID, but
no change in urine output or edema per patient so she came to the ER last night. Patient reports that despite increased urine output since admission with Bumex 1 mg IV BID that her weight went up, but standing scale weight this morning is lower. No
improvement in LE edema. Still SOB. Patient also reporting increased HR into the 140s at rest at home.
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
Subjective
Date of Service: October 02, 2024
Complains of shortness of breath. Remains on 3 L of oxygen
Objective
Labs:
10/02/24 07:39
10/02/24 07:39
Labs
Hgb 10.3 g/dL (12.0-16.0) L 10/02/24 07:39
Hct 34.5 % (37.0-47.0) L 10/02/24 07:39
Plt Count 293 10^3/uL (130-400) 10/02/24 07:39
Sodium 140 mmol/L (135-145) 10/02/24 07:39
Potassium 4.0 mmol/L (3.5-5.1) 10/02/24 07:39
BUN 40 mg/dl (7-17) H 10/02/24 07:39
Creatinine 1.3 mg/dL (0.6-1.0) H 10/02/24 07:39
Glucose 143 mg/dl (70-99) H 10/02/24 07:39
Vital Signs and I&O:
Vital Signs
Temp Pulse Resp BP Pulse Ox
97.8 F 105 18 115/63 98
10/02/24 07:00 10/02/24 07:33 10/02/24 07:33 10/02/24 07:00 10/02/24 07:33
Vital Signs
Temp Pulse Resp BP Pulse Ox
97.8 F 105 18 115/63 98
10/02/24 07:00 10/02/24 07:33 10/02/24 07:33 10/02/24 07:00 10/02/24 07:33
Intake & Output
09/30/24 10/01/24 10/02/24 10/03/24
06:59 06:59 06:59 06:59
Intake Total 420 / 420 1640 / 1640 360 / 360
Output Total 1050 / 1050 2500 / 2500 2009
Balance -630 / -630 -860 / -860 -1650 / -1650
Physical Exam
Physical Exam
General: Well developed, well nourished in NAD.
Neck: Supple, no JVD, HJR, carotids +2 B/L, no bruits bilaterally.
Heart: Non displaced PMI, irregular, no murmurs, No S3, S4, no rubs.
Lungs: Scattered rhonchi
Extremities: Moderate lower extremity edema bilaterally.
Neuro: Grossly nonfocal, awake, alert and oriented x3.
[2024-10-02 09:42] LABS: Carbon Dioxide 45 mmol/L (22-30)
--- NOTE | 2024-10-02 11:28 | CM ---
it disaster recovery manager reviewed patient's chart and patient to return to home with spouse when stable, plan is to wean, patient is currently on 3 liters of oxygen 100%, per pulmonary plan is to wean. Patient has been set up with [facility].
[facility]
[phone]

Plan; Home with [facility] when stable.
[2024-10-02 12:02] LABS: Glucose - Point of Care 222 mg/dl (70-99)
[2024-10-02] MEDS: NOVOLOG FLEXPEN-LOW RESISTANCE 2 UNITS SC ×2 (13:25→17:21)
--- NOTE | 2024-10-02 15:09 | W.PN.PUL3 ---
Today's Communication / Plan
-
2 to 3 days of IV Diamox
IV diuresis Lasix per cardiology
Transition to BiPAP 16/8 nocturnal and with naps. DC CPAP.
Incentive spirometry as able
Continue Symbicort
No indication for systemic corticosteroids
Assessment
-
Assessment: 79-year-old female with a past medical history of asthma, hypertension, hypothyroidism, DM type II, A-fib on Eliquis, CROW on CPAP, ILD, chronic hypoxic respiratory failure who presents with shortness of breath for 3 days. She was
experiencing worsening lower extremity edema, abdominal edema and orthopnea. She says she was getting 2 pounds a day. Also had a cough with productive brown phlegm for 1 week. Previously hospitalized from 08/11 - 08/18/2024 due to hematuria which
was thought to be due to right ureteral stone in setting of Eliquis, and urology performed right ureteral stent placement on 08/12, stent was removed on 08/17. She was admitted to the hospitalist service for acute decompensated heart failure. Bumex
was continued. Her nebulizers from home for history of asthma were also resumed and CPAP for history of CROW. Blood gas obtained on the morning of 10/01 showed alkalemia with pH 7.46 and pCO2 71. She had not been using the hospital CPAP machine for
a few nights she is now on her home CPAP. Pulmonary now consulted for additional management/recommendations.
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
Eliquis, CROW on CPAP, interstitial lung disease, chronic hypoxic respiratory failure on 2 L/min with activity
Impression:
#Acute respiratory failure with hypoxia due to acute HFpEF
#Chronic respiratory failure with hypercapnia due to OHS
#Acute decompensated heart failure with increased bilateral interstitial/acinar opacities seen on CXR from 09/26/2024
#UTI
#Metabolic alkalosis due to chronic hypercapnic respiratory failure/OHS in setting of diuresis
#Chronic anemia
#Chronic diastolic heart failure with TTE from 07/04/2024 showing LVEF 65 to 70% with moderate aortic stenosis with peak/mean gradients 40/21 mmHg, and PASP mildly elevated at 36 mmHg
#Severe morbid obesity with BMI: 49.1
#History of asthma currently on nebulized budesonide
#CROW/OHS on nocturnal CPAP as an outpatient bled with 2L/min
#DM type II
#History of ulcerative colitis
#History of ILD with CT chest from 05/06/2021 showing bilateral mosaic attenuation with scattered subpleural nodules and bronchiolitis
#Paroxysmal A-fib with RVR on Eliquis
#Chronic lymphedema
Plan:
Clinical picture suggest heart failure/volume overload.
- Continue IV lasix with 80mg BID and maintain net negative fluid balance
- Last echo checked on 07/04/24 showing hyperdynamic LV systolic function with LVEF 65-70%, with normal RV size and function, moderate with peak/mean gradients of 40/21 mmHg, respectively, with trace MR, and mild TR with a trivial pericardial
effusion --> no significant change compared to prior echo in January 2024
-
Sleep apnea/obesity hypoventilation syndrome:
ABG 07/07/2024: 7.42/75/66.
- Hold CPAP-transition to BiPAP while in the hospital 13/01.. Given hypercapnia.
- VBG 10/02/2024: 7.42/80/55
Avoid sedatives.
Metabolic alkalosis noted.
Will start a trial of Diamox IV
Afebrile without leukocytosis. Doubt infectious etiology.
Continue to monitor off antibiotics per
-
History of asthma: No evidence for acute exacerbation
- prn nebulized bronchodilators - not currently bronchospastic
-She says that the nebulized budesonide is not helping her breathing. She had felt better previously on the Breo.
Started on Symbicort 160 mcg 2 puffs BID (rinse mouth after use) to be used with a spacer while she is hospitalized, and she should be discharged home with this as well.
She will follow-up with pulmonary office with Dr. Castaneda to see how she is doing and to make any changes, if needed.
- Urology following for UTI and hematuria
- Defer starting antibiotics to primary team
- Follow-up urine culture
- Monitor for hematuria
- A fib management per cardiology
- Given her history of ? ILD, would avoid amiodarone if possible
- Goal HR<110bpm
- Incentive spirometer encouraged q1hr while awake
- Replete electrolytes with K>4, Mg>2
- Trend H/H and transfuse if needed to keep Hb>7g/dL; keep plt>20k, unless there is concern for bleeding then keep plt>50k
- Maintain euglycemia with goal BG >100 and <180
-
- DVT ppx: Eliquis-on hold due to hematuria.
Pulmonary service will continue to follow along.
Patient should follow-up with us in the office she had previously seen Dr. Castaneda. Her last visit was 03/09/2024.
Data:
CXR 09/26/2024: Limited examination - probable congestive heart failure. No focal dense consolidation to suggest pneumonia.
Subjective Data
-
Date of Service:
Date of Service: October 02, 2024
Chief Complaint: Pulmonary Follow Up (Acute hypoxemic respiratory failure-acute heart failure with preserved ejection fraction.)
Review of Systems
Cardiopulmonary: Dyspnea (Improving), Cough (n), Sputum Production (n) and Wheezing (n)
GI: Abdominal Pain (n)
Neuro: Headache (n)
Objective Data
Data Reviewed
Vital Signs / I&O / Oxygen:
Vital Signs
Temp Pulse Resp BP Pulse Ox
97.9 F 100 20 111/73 100
10/02/24 11:00 10/02/24 11:00 10/02/24 11:00 10/02/24 11:00 10/02/24 11:00
Intake and Output
10/01/24 10/02/24 10/03/24
06:59 06:59 06:59
Intake Total 1640 / 1640 360 / 360
Output Total 2500 / 2500 2009
Balance -860 / -860 -1650 / -1650
SaO2 100
Nasal Cannula flow liters per 3
minute
Physical Exam
General: Comfortable
HEENT: Normocephalic
Cardiovascular: S1-S2
Respiratory: Non-Labored Respirations
GI: Soft and Non Distended
Neurology: Awake and No Motor Deficits
Skin: Warm and Other (Venous stasis changes on lower extremities)
Labs/Micro/Reports
Lab Data
10/02/24 07:39
10/02/24 07:39
Microbiology
09/29/24 18:22 Urine Urine Culture - Final
--- NOTE | 2024-10-02 16:13 | W.PN.HOSP.TC ---
Today's Communication/Plan
-
Assessment / Plan
Assessment / Plan
Physical Exam
General: No acute distress, appears comfortable at this time, Morbidly Obese
HEENT: NormoCephalic, Moist mucous membranes and Atraumatic
Respiratory: Clear to auscultation b/l, on nasal cannula oxygen supplementation
Cardiac: S1/S2 and Regular Rhythm; No Murmur or Rub
GI: Soft, Non Tender, Non Distended and Normal Bowel Sounds; No Organomegaly
Musculoskeletal: No Clubbing, No Cyanosis, b/l LE edema
Skin: No Rash
Neuro: AO x 3 Conversant Coherent
Psych: Calm and cooperative
79F HFpEF COPD afib Eliquis sjogren syndrome IBS baseline rolling walker CROW CPAP here for Acute on Chronic HFpEF.
#acute hypoxic respiratory failure CHF exacerbation
#Chronic respiratory failure with hypercapnia due to OHS
-BNP 1430
-strict I &O, daily weight, fluid restriction
-recent ECHO with EF of 65-70%
-Spironolactone Restarted low dose 12.5 mg (previously discontinued d/t hypercalcemia per nephro recommendations last hospitalization, Hypercalcemia since resolved)
-cardiology consult appreciated IV Bumex switched to Lasix 80 mg BID, metolazone prn, losartan restarted/cont, beta-blockade with metoprolol succinate 25 mg p.o. daily
-COVID.flu negative
-chest x ray appreciated limited examination, probable CHF, no evidence pneumonia
-continue supplemental oxygen to keep sat >92, wean as able
- Discontinue CPAP, start BiPAP due to hypercapnia
- Started trial of IV Diamox due to metabolic alkalosis probably from diuresis
- Cardiology following, may require right heart cath
#Arthritis
prn Tylenol Tramadol
#Intermittent Hematuria unclear etiology
#Recent hx right renal stone ureter stent placement since removed
no flank pain
initial hold on Eliquis as per Cardio, H&H however consistently stable, could consider resuming Eliquis with close monitoring
urinalysis noted suggestive of UTI however patient asymptomatic, monitor off abx for now
Urology eval appreciated follow urine culture, consider CT if urine cx neg
#Constipation
cont prn laxatives
scheduled Senokot hold if diarrhea
#Hypokalemia
monitor and replete as necessary
#CROW/OHS
#Hypercapnia
#Asthma, hx ILD
-CPAP discontinued, will use BiPAP while inpatient
-Pulm eval appreciated symbicort started/cont
# Hyperlipidemia
- statin continued
# History of asthma
- Singular continued, nebs from home continued
#anemia of chornic disease
-H&H stable
-no active bleeding
-ctm
#NIDDM:
-Sliding scale insulin for now
-hold Januvia and metformin
-Accu-Cheks
#Persistent A-fib
-EKG with atrial fib
-Continue home diltiazem 240 mg p.o. 3 times daily for rate control
-Eliquis on hold as per Cardio d/t hematuria as above
#Hypothyroidism:
-Continue home levothyroxine 100 mcg daily
#Hyperparathyroidism
cont sensipar
Calcium in wnl
#Lower extremity venous insufficiency and lymphedema
PT/OT appreciated home health
CODE STATUS: Full code
I spent a total of 45 minutes
Anticipated Discharge: 24 - 48 hours
Subjective/Interval History
-
Date of Service: October 02, 2024
Patient was seen and examined this morning. Resting comfortably in chair.
Objective Data
-
Labs:
Laboratory Results
10/02/24
07:39
WBC 7.8
Hgb 10.3 L
Hct 34.5 L
Plt Count 293
Sodium 140
Potassium 4.0
Chloride 84 L
Carbon Dioxide 45 H
BUN 40 H
Creatinine 1.3 H
Glucose 143 H
Calcium 9.1
Vital Signs:
Vital Signs
Temp Pulse Resp BP Pulse Ox
97.5 F 83 18 109/67 96
10/02/24 15:00 10/02/24 15:00 10/02/24 15:00 10/02/24 15:00 10/02/24 15:00
I&O
10/01/24 10/02/24 10/03/24
06:59 06:59 06:59
Intake Total 1640 / 1640 360 / 360
Output Total 2500 / 2500 2009
Balance -860 / -860 -1650 / -1650
Review of Systems
-
History Source: Patient
All other systems: Reviewed and negative
Physical Exam
-
General: No Apparent Distress
[2024-10-02 16:29] LABS: Glucose - Point of Care 233 mg/dl (70-99)
[2024-10-02] MEDS: DIAMOX 2.5 MG IV (17:19)
[2024-10-02] MEDS: LIPITOR 10 MG PO (17:20)
[2024-10-02] MEDS: SINGULAIR 10 MG PO (17:20)
[2024-10-02] MEDS: XALATAN OPHTHALMIC SOLUTION 1 DROP BOTH EYES (22:26)
[2024-10-02 22:36] LABS: Glucose - Point of Care 175 mg/dl (70-99)
[2024-10-03] VITALS (7 sets, daily range): BP systolic 98–132; BP diastolic 57–76; PULSE 75; O2SAT 94; BMI 48.5
[2024-10-03] MEDS: DIAMOX 2.5 MG IV ×2 (03:04→16:11)
[2024-10-03] MEDS: SYNTHROID 100 MCG PO (03:05)
[2024-10-03] MEDS: SYMBICORT 160/4.5 MCG INHALER 2 PUFF INH ×2 (07:23→20:07)
[2024-10-03 07:40] LABS: Glucose - Point of Care 149 mg/dl (70-99)
[2024-10-03] MEDS: NOVOLOG FLEXPEN-LOW RESISTANCE SC (08:23)
[2024-10-03] MEDS: LASIX 80 MG IV ×2 (08:24→16:12)
[2024-10-03] MEDS: VITAMIN B-12 1000 MCG PO (08:26)
[2024-10-03] MEDS: COZAAR 25 MG PO (08:27)
[2024-10-03] MEDS: SENOKOT 8.6 MG PO ×2 (08:27→19:45)
[2024-10-03] MEDS: KCL 20 MEQ PO ×2 (08:27→19:46)
[2024-10-03] MEDS: ALDACTONE PO (08:27)
[2024-10-03] MEDS: SENSIPAR 30 MG PO (08:28)
[2024-10-03] MEDS: TOPROL XL 25 MG PO (08:28)
[2024-10-03] MEDS: MAGNESIUM OXIDE 500 MG PO ×2 (08:28→19:45)
[2024-10-03] MEDS: PROTONIX 40 MG PO (08:28)
[2024-10-03] MEDS: ZYRTEC 10 MG PO (08:29)
[2024-10-03] MEDS: OCEAN, SALINE MIST 1 SPRAYS NASAL ×4 (08:29→19:52)
[2024-10-03] MEDS: TRIAMCINOLONE ACETONIDE 0.1% CREAM 1 APPLIC TOPICAL (08:29)
[2024-10-03] MEDS: CARDIZEM CD 240 MG PO ×2 (08:30→19:47)
[2024-10-03 09:02] LABS: Hematocrit 32.7 % (37.0-47.0); Hemoglobin 9.8 g/dL (12.0-16.0); Mean Corpuscular Hgb 24.7 pg (27.0-31.0); Mean Corpuscular Volume 82.6 fL (81.0-99.0); Mean Platelet Volume 10.9 fL (7.4-10.4); Platelet Count 265 10^3/uL (130-400); Red Blood Cell Count 3.96 10^6/uL (4.20-5.40); Red Cell Dist. Width 15.5 % (11.5-14.5)
[2024-10-03 09:22] LABS: Blood Urea Nitrogen 42 mg/dl (7-17); Calcium 9.2 mg/dl (8.4-10.2); Chloride 83 mmol/L (98-107); Estimated Creatinine Clearance 48 ml/min; Glucose 176 mg/dl (70-99); Magnesium 2.1 mg/dl (1.6-2.3); Phosphorus 3.9 mg/dl (2.5-4.5); Potassium 3.4 mmol/L (3.5-5.1); Sodium 139 mmol/L (135-145); eGFR 46.33
--- NOTE | 2024-10-03 10:27 | CM ---
Chart reviewed and patient declined physical therapy yesterday, plan is for patient to return to home with spouse and visiting nurses, referral sent to [facility].
[facility]
[phone]

Plan; Home with spouse and [facility] care.
[2024-10-03 11:26] LABS: Glucose - Point of Care 202 mg/dl (70-99)
[2024-10-03 13:11] LABS: Carbon Dioxide 46 mmol/L (22-30)
[2024-10-03] MEDS: NOVOLOG FLEXPEN-LOW RESISTANCE 2 UNITS SC ×2 (13:21→17:55)
--- NOTE | 2024-10-03 13:47 | W.PN.HOSP.TC ---
Addendum entered and electronically signed by Tony Dale DO 10/04/24 11:09:
Yes, hematuria is related to/associated with/exacerbated by Eliquis.
Addendum entered and electronically signed by Tony Dale DO 10/03/24 15:26:
Additional diagnosis
FAVIAN
Original Note:
Today's Communication/Plan
-
Assessment / Plan
Assessment / Plan
Physical Exam
General: No acute distress, occasionally tearful about wanting to go home
HEENT: NormoCephalic, Moist mucous membranes and Atraumatic
Respiratory: Clear to auscultation b/l, on nasal cannula oxygen supplementation
Cardiac: S1/S2 and Regular Rhythm; No Murmur or Rub
GI: Soft, Non Tender, Non Distended and Normal Bowel Sounds; No Organomegaly
Musculoskeletal: No Clubbing, No Cyanosis, b/l LE edema
Skin: Lower extremity venous stasis changes
Neuro: AO x 3 Conversant Coherent
Psych: Calm and cooperative
79F HFpEF COPD afib Eliquis sjogren syndrome IBS baseline rolling walker CROW CPAP here for Acute on Chronic HFpEF.
#acute hypoxic respiratory failure CHF exacerbation
#Chronic respiratory failure with hypercapnia due to OHS
- Continue diuresis with Lasix 80 mg IV twice daily, metolazone as needed
- Weight down approximately 6.5 kg this admission
- recent ECHO with EF of 65-70%
- Spironolactone Restarted low dose 12.5 mg (previously discontinued d/t hypercalcemia per nephro recommendations last hospitalization, Hypercalcemia since resolved)
- Losartan restarted at 25 mg daily for afterload reduction, beta-blockade with metoprolol succinate 25 mg daily
- cardiology input appreciated
- continue supplemental oxygen to keep sat >92, wean as able
- Discontinue CPAP, start BiPAP due to hypercapnia
- Started trial of IV Diamox x 2 to 3 days due to metabolic alkalosis probably from diuresis
- Cardiology following, may require right heart cath
#Arthritis
prn Tylenol Tramadol
#Intermittent Hematuria unclear etiology
#Recent hx right renal stone ureter stent placement since removed
- no flank pain
- initially held Eliquis, H&H however consistently stable, will restart Eliquis with close monitoring
- urinalysis noted suggestive of UTI however patient asymptomatic, monitor off abx for now
- Urology eval appreciated, urine culture negative
#Constipation
- cont prn laxatives
- scheduled Senokot hold if diarrhea
#Hypokalemia
- monitor, daily repletion for now considering aggressive diuresis
#CROW/OHS
#Hypercapnia
#Asthma, hx ILD
-CPAP discontinued, will use BiPAP while inpatient
-Pulm eval appreciated symbicort started/cont
# Hyperlipidemia
- statin continued
# History of asthma
- Singular continued, nebs from home continued
#anemia of chronic disease
-H&H stable
-no active bleeding
#NIDDM:
-Sliding scale insulin for now
-hold Januvia and metformin
-Accu-Cheks
#Persistent A-fib
-EKG with atrial fib
-Continue home diltiazem 240 mg p.o. 3 times daily for rate control
- Restarted anticoagulation with Eliquis with close monitoring for recurrent hematuria
#Hypothyroidism:
-Continue home levothyroxine 100 mcg daily
#Hyperparathyroidism
cont sensipar
Calcium in wnl
#Lower extremity venous insufficiency and lymphedema
PT/OT appreciated home health
CODE STATUS: Full code
I spent a total of 55 minutes
Anticipated Discharge: 24 - 48 hours
Subjective/Interval History
-
Date of Service: October 03, 2024
Patient was seen and examined at bedside this morning. Reports having problems with her CPAP overnight, did not use BiPAP. Was tearful at times about wanting to go home.
Objective Data
-
Labs:
Laboratory Results
10/03/24
08:30
WBC 8.0
Hgb 9.8 L
Hct 32.7 L
Plt Count 265
Sodium 139
Potassium 3.4 L
Chloride 83 L
Carbon Dioxide 46 H
BUN 42 H
Creatinine 1.2 H
Glucose 176 H
Calcium 9.2
Vital Signs:
Vital Signs
Temp Pulse Resp BP Pulse Ox
98 F 88 18 113/66 97
10/03/24 11:32 10/03/24 11:32 10/03/24 11:32 10/03/24 11:32 10/03/24 11:32
I&O
10/02/24 10/03/24 10/04/24
06:59 06:59 06:59
Intake Total 360 / 360 1080 / 1080
Output Total 2009 1950 / 1950
Balance -1650 / -1650 -870 / -870
Review of Systems
-
History Source: Patient
All other systems: Reviewed and negative
Constitutional: Reports Fatigue
Physical Exam
-
General: No Apparent Distress
--- NOTE | 2024-10-03 15:06 | PN.CDI ---
CDI
- -
CDI:
Physician Documentation Request
Admit Date: 09/26/24 18:19
Dear Doctor Chito,
Patient admitted for heart failure.
Laboratory Tests
09/30/24 10/02/24
07:49 07:39
Creatinine 1.0 1.3 H
Clarify which of the following accurately represents the patient's renal status:
FAVIAN
Rise in creatinine
Other
Criteria for FAVIAN*
1 Increase in serum creatinine by > or = to 0.3 mg/dL (> or = to 26.5 micromol/L) within 48 hours, OR
2 Increase in serum creatinine to > or = to 1.5 times baseline, which is known or presumed to have occurred within 7 days, OR
3 Urine volume < 0.5 nL/kg/hour for six hours
Use of terms such as suspected, likely, concern for, or probable (associated with a specific diagnosis that is being evaluated, monitored, or treated as if it exists) are acceptable and can be coded in the inpatient setting, when documented at the
time of discharge.
Thank you,
Sylvie Cody RN, BSN
CDI Specialist
Available via [employer] text
Please use your independent medical judgment in providing your response.
*Source: Kidney Disease: Improving Global Outcomes (KDIGO) 2012
[2024-10-03 16:56] LABS: Glucose - Point of Care 238 mg/dl (70-99)
--- NOTE | 2024-10-03 17:02 | W.PN.PUL3 ---
Today's Communication / Plan
-
Continue BiPAP as tolerated
Diamox for 1 additional days
Lasix ongoing
Follow renal function
Incentive spirometry
Wean down FiO2 as able- Currently on 2 L
Assessment
-
Assessment: 79-year-old female with a past medical history of asthma, hypertension, hypothyroidism, DM type II, A-fib on Eliquis, CROW on CPAP, ILD, chronic hypoxic respiratory failure who presents with shortness of breath for 3 days. She was
experiencing worsening lower extremity edema, abdominal edema and orthopnea. She says she was getting 2 pounds a day. Also had a cough with productive brown phlegm for 1 week. Previously hospitalized from 08/11 - 08/18/2024 due to hematuria which
was thought to be due to right ureteral stone in setting of Eliquis, and urology performed right ureteral stent placement on 08/12, stent was removed on 08/17. She was admitted to the hospitalist service for acute decompensated heart failure. Bumex
was continued. Her nebulizers from home for history of asthma were also resumed and CPAP for history of CROW. Blood gas obtained on the morning of 10/01 showed alkalemia with pH 7.46 and pCO2 71. She had not been using the hospital CPAP machine for
a few nights she is now on her home CPAP. Pulmonary now consulted for additional management/recommendations.
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
Eliquis, CROW on CPAP, interstitial lung disease, chronic hypoxic respiratory failure on 2 L/min with activity
Impression:
#Acute respiratory failure with hypoxia due to acute HFpEF
#Chronic respiratory failure with hypercapnia due to OHS
#Acute decompensated heart failure with increased bilateral interstitial/acinar opacities seen on CXR from 09/26/2024
#UTI
#Metabolic alkalosis due to chronic hypercapnic respiratory failure/OHS in setting of diuresis
#Chronic anemia
#Chronic diastolic heart failure with TTE from 07/04/2024 showing LVEF 65 to 70% with moderate aortic stenosis with peak/mean gradients 40/21 mmHg, and PASP mildly elevated at 36 mmHg
#Severe morbid obesity with BMI: 49.1
#History of asthma currently on nebulized budesonide
#CROW/OHS on nocturnal CPAP as an outpatient bled with 2L/min
#DM type II
#History of ulcerative colitis
#History of ILD with CT chest from 05/06/2021 showing bilateral mosaic attenuation with scattered subpleural nodules and bronchiolitis
#Paroxysmal A-fib with RVR on Eliquis
#Chronic lymphedema
Plan:
Clinical picture suggest heart failure/volume overload.
- Continue IV lasix with 80mg BID and maintain net negative fluid balance
- Last echo checked on 07/04/24 showing hyperdynamic LV systolic function with LVEF 65-70%, with normal RV size and function, moderate with peak/mean gradients of 40/21 mmHg, respectively, with trace MR, and mild TR with a trivial pericardial
effusion --> no significant change compared to prior echo in January 2024
Continue to follow creatinine.
-
Sleep apnea/obesity hypoventilation syndrome:
ABG 07/07/2024: 7.42/75/66.
- Hold CPAP-transition to BiPAP while in the hospital 13/01.. Given hypercapnia.
- VBG 10/02/2024: 7.42/80/55
Avoid sedatives.
Metabolic alkalosis noted.
Will start a trial of Diamox IV for 1 additional day.
Follow BMP
Afebrile without leukocytosis. Doubt infectious etiology.
Continue to monitor off antibiotics per
-
History of asthma: No evidence for acute exacerbation
- prn nebulized bronchodilators - not currently bronchospastic
-She says that the nebulized budesonide is not helping her breathing. She had felt better previously on the Breo.
Continue Symbicort 160 mcg 2 puffs BID (rinse mouth after use) to be used with a spacer while she is hospitalized, and she should be discharged home with this as well.
She will follow-up with pulmonary office with Dr. Castaneda to see how she is doing and to make any changes, if needed.
- Urology following for UTI and hematuria
- Defer starting antibiotics to primary team
- Follow-up urine culture
- Monitor for hematuria
- A fib management per cardiology
- Given her history of ? ILD, would avoid amiodarone if possible
- Incentive spirometer encouraged q1hr while awake
- Replete electrolytes with K>4, Mg>2
- DVT ppx: Eliquis-on hold due to hematuria.
Pulmonary service will continue to follow along.
Patient should follow-up with us in the office she had previously seen Dr. Castaneda. Her last visit was 03/09/2024.
Data:
CXR 09/26/2024: Limited examination - probable congestive heart failure. No focal dense consolidation to suggest pneumonia.
Subjective Data
-
Date of Service:
Date of Service: October 03, 2024
Chief Complaint: Pulmonary Follow Up (Acute hypoxemic respiratory failure-acute heart failure with preserved ejection fraction.)
Subjective:
No new complaints
Patient is mostly bedbound
Denies increased phlegm production
Review of Systems
General: Fever (n)
Cardiopulmonary: Dyspnea (none at rest)
GI: Abdominal Pain (n) and Nausea (n)
Objective Data
Data Reviewed
Vital Signs / I&O / Oxygen:
Vital Signs
Temp Pulse Resp BP Pulse Ox
97.8 F 77 24 98/73 99
10/03/24 15:00 10/03/24 15:00 10/03/24 15:00 10/03/24 15:00 10/03/24 15:00
Intake and Output
10/02/24 10/03/24 10/04/24
06:59 06:59 06:59
Intake Total 360 / 360 1080 / 1080
Output Total 2009 1950 / 1950
Balance -1650 / -1650 -870 / -870
SaO2 99
Nasal Cannula flow liters per 2
minute
Physical Exam
General: Comfortable
HEENT: Normocephalic
Cardiovascular: S1-S2
Respiratory: Non-Labored Respirations
GI: Soft and Non Distended
Neurology: Awake and No Motor Deficits
Skin: Warm and Other (Venous stasis changes on lower extremities)
Labs/Micro/Reports
Lab Data
10/03/24 08:30
10/03/24 08:30
Microbiology
10/02/24 11:54 Urine Urine Culture - Final
09/29/24 18:22 Urine Urine Culture - Final
--- NOTE | 2024-10-03 17:02 | W.PN.CARDCBS ---
Addendum entered and electronically signed by Jimbo Hobson MD 10/03/24 17:28:
I saw and examined the patient.
The Hog Counter's note was reviewed and I agree with the note.
Comment:
GEN: No distress, awake, Ox3
HEENT: supple, anicteric, mmm
LUNGS: CTA, no wheezes/rales
CV: Irreg, S1/S2, 1/6 syst LSB, no gallop
ABD: soft, BS+, NT/ND
EXT: ++ edema
NEURO: Gross non-focal
SKIN: No rash
Plan:
Remains about the same. Weight is slightly down. Cont Lasix 80mg Iv bid. Cont Aldactone
Agree with Diamox.
No further bleeding. Will restart Eliquis 5mg po bid.
Cont rate control strategy for Afib. Cont Diltiazem 240mg po bid. Cont Toprol
Lomg term prognosis is poor.
Original Note:
Today's Communication / Plan
-
Follow weights and labs
Down 10 lbs and oxygen demands improved
Impression / Plan
-
PCP: Dr. Lake
Card: Dr. Eitan Bullock
Impression:
Admitted with acute HFpEF
Recent admission for ureteral stone and acute HF 08/11/24 until 08/18/24
Recent admission for Afib and acute HF 07/01/24 until 07/14/24
Acute HFpEF
Persistent Afib
8% burden on monitor 12/2023 and now persistent Afib since at least 07/01/24
Chronic Eliquis OAC
CROW/OHS on nocturnal CPAP with 2 L NC as an outpatient
ILD
DM 2
Severe morbid obesity, BMI 50.3
Mild to moderate aortic stenosis
Hypertension
Hypercholesterolemia
Venous insufficiency
Depression
Multiple medical allergies
Echo 07/04/2024: hyperdynamic left ventricular systolic function ejection fraction 65 to 70%. Moderate aortic stenosis with peak and mean gradients of 40 and 21 with a calculated aortic valve area of 1 cm2. Trivial pericardial effusion and no
significant valvular disease overall unchanged from prior echocardiogram
Plan:
-Weight is down 10 lbs with Lasix 80 mg IV BID. Patient has also received intermittent doses of metolazone 2.5 mg without appreciable increase in diuresis.
-EF 65% by echo 07/04/24
-New to Toprol XL 25 mg daily this admission
-New to losartan 25 mg daily this admission
-Not previously started on SGLT-2 inhibitor due to UTI.
-Pulm following as well. Diamox ordered.
-Patient not felt to be a candidate for rhythm control, unlikely to maintain SR due to comorbidities (obesity, CROW/OHS, HTN and DM2). Will focus on rate control. Patient is not a great candidate for amiodarone given ILD
-Cont Eliquis 5 mg BID (age 79, wt 120 kg)
HPI: Patient came to the ER yesterday with increased SOB and is now admitted with acute HF and cardiology has been consulted. Patient was admitted with acute HFpEF 07/01/24 until 07/14/24 and diuresed 13 lbs for a d/c weight of 275 lbs. Prior to that
admission patient was taking Lasix 20 mg PO BID and then during that admission the patient was diuresed with Lasix IV and then transitioned to Bumex 1 mg PO daily at time of d/c. Patient was readmitted with acute HF and hematuria 08/11/24 until
08/18/24. Patient was treated for ureteral calculi during that admission and was also diuresed with a d/c weight of 263 lbs which was lower than her dry weight from the 07/14/24 d/c. Patient was again d/c'd on Bumex 1 mg PO daily and had a
telemedicine visit 09/21/24 and reported weight gain, edema and increased SOB. Patient had previously called the office and had her Bumex dose increased to 1 mg PO BID and during that office visit her Bumex was increased further to 2 mg PO BID, but
no change in urine output or edema per patient so she came to the ER last night. Patient reports that despite increased urine output since admission with Bumex 1 mg IV BID that her weight went up, but standing scale weight this morning is lower. No
improvement in LE edema. Still SOB. Patient also reporting increased HR into the 140s at rest at home.
Progress Note - Metal Fabricating Supervisor
Subjective
Date of Service: October 03, 2024
She is tearful and wants to go home
Objective
Labs:
10/03/24 08:30
10/03/24 08:30
Labs
Hgb 9.8 g/dL (12.0-16.0) L 10/03/24 08:30
Hct 32.7 % (37.0-47.0) L 10/03/24 08:30
Plt Count 265 10^3/uL (130-400) 10/03/24 08:30
Sodium 139 mmol/L (135-145) 10/03/24 08:30
Potassium 3.4 mmol/L (3.5-5.1) L 10/03/24 08:30
BUN 42 mg/dl (7-17) H 10/03/24 08:30
Creatinine 1.2 mg/dL (0.6-1.0) H 10/03/24 08:30
Glucose 176 mg/dl (70-99) H 10/03/24 08:30
Vital Signs and I&O:
Vital Signs
Temp Pulse Resp BP Pulse Ox
97.8 F 77 24 98/73 99
10/03/24 15:00 10/03/24 15:00 10/03/24 15:10/03/24 15:10/03/24 15:00
Vital Signs
Temp Pulse Resp BP Pulse Ox
97.8 F 77 24 98/73 99
10/03/24 15:00 10/03/24 15:00 10/03/24 15:00 10/03/24 15:00 10/03/24 15:00
Intake & Output
10/01/24 10/02/24 10/03/24 10/04/24
06:59 06:59 06:59 06:59
Intake Total 1640 / 1640 360 / 360 1080 / 1080
Output Total 2500 / 2500 2009 1950 / 1950
Balance -860 / -860 -1650 / -1650 -870 / -870
Physical Exam
Physical Exam
GEN: NAD. AAOx3
HEENT: EOMI, MMM, wearing glasses
LUNGS: 2 L NC. No audible wheeze
CV: Afib on tele.
ABD: soft, BS+, NT/ND
EXT: +2 hard, non-pitting B/L LE edema. Chronic venous changes.
NEURO: Gross non-focal
SKIN: No rash
[2024-10-03] MEDS: SINGULAIR 10 MG PO (17:54)
[2024-10-03] MEDS: LIPITOR 10 MG PO (17:54)
[2024-10-03] MEDS: ELIQUIS 5 MG PO (19:45)
[2024-10-03] MEDS: XALATAN OPHTHALMIC SOLUTION 1 DROP BOTH EYES (19:47)
[2024-10-03 22:31] LABS: Glucose - Point of Care 229 mg/dl (70-99)
[2024-10-04] MEDS: SYNTHROID 100 MCG PO (03:10)
[2024-10-04 03:30] VITALS: BP 88/58
[2024-10-04 03:47] VITALS: BP 90/60
[2024-10-04 05:51] VITALS: BP 109/67
[2024-10-04 06:00] VITALS: BMI 48.0
[2024-10-04] MEDS: TYLENOL 650 MG PO (06:40)
[2024-10-04 07:00] VITALS: BP 101/58
[2024-10-04 07:55] LABS: Glucose - Point of Care 149 mg/dl (70-99)
[2024-10-04 08:04] LABS: Hematocrit 30.9 % (37.0-47.0); Hemoglobin 9.6 g/dL (12.0-16.0); Mean Corp Hgb Conc. 31.1 g/dL (33.0-37.0); Mean Corpuscular Hgb 24.9 pg (27.0-31.0); Mean Corpuscular Volume 80.3 fL (81.0-99.0); Mean Platelet Volume 11.3 fL (7.4-10.4); Platelet Count 262 10^3/uL (130-400); Red Blood Cell Count 3.85 10^6/uL (4.20-5.40); Red Cell Dist. Width 15.6 % (11.5-14.5); White Blood Cell Count 8.3 10^3/uL (4.8-10.8)
[2024-10-04] MEDS: SYMBICORT 160/4.5 MCG INHALER 2 PUFF INH (08:09)
[2024-10-04 08:43] LABS: Blood Urea Nitrogen 50 mg/dl (7-17); Calcium 9.1 mg/dl (8.4-10.2); Chloride 82 mmol/L (98-107); Estimated Creatinine Clearance 41 ml/min; Glucose 149 mg/dl (70-99); Magnesium 2.2 mg/dl (1.6-2.3); Phosphorus 4.6 mg/dl (2.5-4.5); Potassium 3.6 mmol/L (3.5-5.1); Sodium 137 mmol/L (135-145); eGFR 38.51
[2024-10-04] MEDS: NOVOLOG FLEXPEN-LOW RESISTANCE SC (08:43)
[2024-10-04] MEDS: ALDACTONE PO (08:45)
[2024-10-04] MEDS: MAGNESIUM OXIDE 500 MG PO (08:46)
[2024-10-04] MEDS: PROTONIX 40 MG PO (08:46)
[2024-10-04] MEDS: SENSIPAR 30 MG PO (08:46)
[2024-10-04] MEDS: KCL 20 MEQ PO (08:47)
[2024-10-04] MEDS: VITAMIN B-12 1000 MCG PO (08:47)
[2024-10-04] MEDS: ELIQUIS 5 MG PO (08:47)
[2024-10-04] MEDS: COZAAR 25 MG PO (08:47)
[2024-10-04] MEDS: CARDIZEM CD 240 MG PO (08:47)
[2024-10-04] MEDS: SENOKOT 8.6 MG PO (08:47)
[2024-10-04] MEDS: TOPROL XL 25 MG PO (08:48)
[2024-10-04] MEDS: ZYRTEC 10 MG PO (08:48)
[2024-10-04] MEDS: LASIX 80 MG IV (08:48)
[2024-10-04 08:54] LABS: Carbon Dioxide 49 mmol/L (22-30)
[2024-10-04] MEDS: OCEAN, SALINE MIST 1 SPRAYS NASAL (08:56)
[2024-10-04] MEDS: TRIAMCINOLONE ACETONIDE 0.1% CREAM 1 APPLIC TOPICAL (08:57)
--- NOTE | 2024-10-04 10:46 | PN.CDI ---
CDI
- -
CDI:
Physician Documentation Request
Admit Date: 09/26/24 18:19
Dear Doctor Chito,
Patient admitted for heart failure.
10/01 Cardiology PN: 'Eliquis 5mg BID on hold given hematuria (recurrent). Hemoglobin is rather stable and I would have no objection to resuming anticoagulation if and when okay with primary service and urology
Hematuria noted 09/29/2024 Eliquis was held starting 09/29.'
10/03 Hospitalist PN: 'Intermittent Hematuria unclear etiology...initially held Eliquis, H&H however consistently stable, will restart Eliquis with close monitoring'
Please clarify the relationship between these conditions:
Yes, hematuria is related to/associated with/exacerbated by Eliquis.
No, hematuria is not related to/associated with/exacerbated by Eliquis.
Unable to determine
Use of terms such as suspected, likely, concern for, or probable (associated with a specific diagnosis that is being evaluated, monitored, or treated as if it exists) are acceptable and can be coded in the inpatient setting, when documented at the
time of discharge.
Thank you,
Sylvie Cody RN, BSN
CDI Specialist
Available via [place] text
Please use your independent medical judgment in providing your response.
[2024-10-04 11:00] VITALS: BP 95/65
[2024-10-04 11:35] LABS: Glucose - Point of Care 247 mg/dl (70-99)
--- NOTE | 2024-10-04 12:13 | W.DCSUMMARY ---
Discharge Summary
Discharge Data
Date of Admission: 09/26/24
Date of Discharge: 10/04/24
-
Pending Results: No
Hospital Course
Ms. Pace is a 79-year-old female with a medical history of HFpEF, A-fib (on Eliquis), lower extremity venous insufficiency and lymphedema, NIDDM, CKD stage IIIb, hypertension, GERD, hypothyroidism, asthma, Sjogren's syndrome, ulcerative colitis,
chronic ambulatory dysfunction (wheelchair-bound), recent kidney stones, urinary tract infection, pulmonary nodules, and CROW (CPAP at night) who presented with shortness of breath and hypoxia. She had been experiencing orthopnea and worsening lower
extremity edema for the past week prior to this admission. Her home diuretic had been adjusted with no improvement in her symptoms. She was admitted for treatment of acute on chronic HFpEF with associated acute hypoxic respiratory failure.
She diuresed well with IV Lasix with metolazone as needed. She was restarted on low-dose spironolactone. Her weight is down approximately 8 kg since the time of admission. She will be discharged on Lasix 80 mg p.o. daily with an additional 40 mg
as needed for abrupt weight gain or worsening lower extremity edema. She has been instructed to follow-up closely with her rn unit manager for dosage adjustments as needed. She will also need to follow-up with her primary care physician after
discharge.
She was able to be titrated off of supplemental oxygen and was saturating appropriately on room air with supplemental oxygen use as needed to maintain a pulse ox between 88 and 92%. She was evaluated by pulmonology and encouraged to trial BiPAP due
to persistent hypercapnia, however she did not tolerate this but instead continued her home CPAP. Alternatively she was given a short course of IV Diamox with little improvement in her serum bicarb level. She does not appear somnolent or
lethargic, conversely is alert and at her baseline mental status. She should continue her scheduled breathing treatments.
Her creatinine was labile but appeared to stay within her known baseline renal function. She required twice daily potassium supplementation with her aggressive diuresis, which can be discontinued at discharge. She will need repeat labs to monitor
her renal function and potassium levels. She uses metformin at home for diabetic control, however should follow-up with her primary care physician to consider alternative agents in the setting of CKD. Her Januvia will be discontinued due to risk
of urinary tract infections.
Her home Eliquis was held for period of time due to spontaneous hematuria. She was evaluated by urology who felt no acute intervention was warranted. Her hematuria resolved and so far has not recurred after restarting Eliquis. She has been
advised to discontinue Eliquis if her hematuria recurs. She can follow-up with urology as outpatient as needed.
She is well aware of her tenuous medical condition and multiple comorbidities potentially requiring rehospitalization. She does not want further medical treatment in the hospital and prefers ongoing management at home as possible. She has been
advised to return to the hospital if her medical conditions are not able to be further managed in the outpatient setting.
Physical Exam
General: No acute distress, occasionally tearful about wanting to go home
HEENT: NormoCephalic, Moist mucous membranes and Atraumatic
Respiratory: Clear to auscultation b/l, no increased work of breathing
Cardiac: S1/S2 and Regular Rhythm; No Murmur or Rub
GI: Soft, Non Tender, Non Distended and Normal Bowel Sounds; No Organomegaly
Musculoskeletal: No Clubbing, No Cyanosis, b/l LE edema
Skin: Lower extremity venous stasis changes
Neuro: AO x 3 Conversant Coherent
Psych: Calm and cooperative
More than 30 minutes spent in discharge including
Final examination of the patient
Summarizing hospital stay
Instructions for continuing care to all relevant caregivers
Preparation of discharge records, prescriptions, and referral forms
Total time spent (in minutes): 55
Discharge Plan
-
Patient Disposition: Home with Home Care
Discharge Diagnosis/Procedures: Acute on chronic HFpEF, acute hypoxic respiratory failure, chronic respiratory failure with hypercapnia due to OHS
Diet: 2 Gram Sodium and Restrict fluids to 64 oz
Activity: As tolerated
Activity Restrictions/Additional Instructions:
Ms. Pace is a 79-year-old female with a medical history of HFpEF, A-fib (on Eliquis), lower extremity venous insufficiency and lymphedema, NIDDM, CKD stage IIIb, hypertension, GERD, hypothyroidism, asthma, Sjogren's syndrome, ulcerative colitis,
chronic ambulatory dysfunction (wheelchair-bound), recent kidney stones, urinary tract infection, pulmonary nodules, and CROW (CPAP at night) who presented with shortness of breath and hypoxia. She had been experiencing orthopnea and worsening lower
extremity edema for the past week prior to this admission. Her home diuretic had been adjusted with no improvement in her symptoms. She was admitted for treatment of acute on chronic HFpEF with associated acute hypoxic respiratory failure.
She diuresed well with IV Lasix with metolazone as needed. She was restarted on low-dose spironolactone. Her weight is down approximately 8 kg since the time of admission. She will be discharged on Lasix 80 mg p.o. daily with an additional 40 mg
as needed for abrupt weight gain or worsening lower extremity edema. She has been instructed to follow-up closely with her rn unit manager for dosage adjustments as needed. She will also need to follow-up with her primary care physician after
discharge.
She was able to be titrated off of supplemental oxygen and was saturating appropriately on room air with supplemental oxygen use as needed to maintain a pulse ox between 88 and 92%. She was evaluated by pulmonology and encouraged to trial BiPAP due
to persistent hypercapnia, however she did not tolerate this but instead continued her home CPAP. Alternatively she was given a short course of IV Diamox with little improvement in her serum bicarb level. She does not appear somnolent or
lethargic, conversely is alert and at her baseline mental status. She should continue her scheduled breathing treatments.
Her creatinine was labile but appeared to stay within her known baseline renal function. She required twice daily potassium supplementation with her aggressive diuresis, which can be discontinued at discharge. She will need repeat labs to monitor
her renal function and potassium levels. She uses metformin at home for diabetic control, however should follow-up with her primary care physician to consider alternative agents in the setting of CKD. Her Januvia will be discontinued due to risk
of urinary tract infections.
Her home Eliquis was held for period of time due to spontaneous hematuria. She was evaluated by urology who felt no acute intervention was warranted. Her hematuria resolved and so far has not recurred after restarting Eliquis. She has been
advised to discontinue Eliquis if her hematuria recurs. She can follow-up with urology as outpatient as needed.
She is well aware of her tenuous medical condition and multiple comorbidities potentially requiring rehospitalization. She does not want further medical treatment in the hospital and prefers ongoing management at home as possible. She has been
advised to return to the hospital if her medical conditions are not able to be further managed in the outpatient setting.
Instructions: *[facility] Heart Failure Instructions
Referrals:
Mery Castaneda MD [Active] - in two to three weeks
Will Sanchez MD [Active] - (call to schedule appt during late September)
Jimbo Hobson MD [Active] -
Andreas Lake MD [Family Provider] -
Prescriptions:
New
spironolactone 25 mg Tablet
12.5 mg PO DAILY 30 Days Qty: 15 0RF
losartan 25 mg Tablet
25 mg PO DAILY 30 Days Qty: 30 0RF
metoprolol succinate 25 mg Tablet Extended Release 24 Hr
25 mg PO DAILY 30 Days Qty: 30 0RF
furosemide [Lasix] 80 mg tablet
80 mg PO DAILY Qty: 60 0RF
Rx Instructions:
take an additional 40 mg (1/2 tablet) for abrupt weight gain or increased edema
Continued
budesonide 0.5 mg/2 mL Suspension For Nebulization
0.5 mg INHALATION R DAILY
sodium chloride 0.65 % Aerosol,[place]
1 spray INTRANASAL TIDPRN PRN (Reason: dryness)
cyanocobalamin (vitamin B-12) [Vitamin B-12] 1,000 mcg Tablet
1,000 mcg PO DAILY Qty: 0 0RF
cetirizine 10 MG tablet
10 mg PO DAILY Qty: 0 0RF
atorvastatin 10 MG tablet
10 mg PO QPM 30 Days Qty: 30 0RF
diltiazem HCl 240 mg Capsule,Extended Release 24hr
240 mg PO TID Qty: 0 0RF
montelukast 10 mg Tablet
10 mg PO QPM Qty: 0 0RF
mesalamine 1.2 gram Tablet,Delayed Release (Dr/Ec)
2.4 g PO DAILY Qty: 0 0RF
Eliquis 5 mg Tablet
5 mg PO BID Qty: 0 0RF
travoprost 0.004 % Drops
1 drp BOTH EYES HS
triamcinolone acetonide 0.1 % Cream
1 applic TOPICAL DAILY
Patient Comments:
both legs
acetaminophen 650 mg Tablet Extended Release
650 mg PO DAILYPRN PRN (Reason: mild pain)
vitamin A and D Cream
1 applic TOPICAL DAILY
metformin 500 MG tablet
500 mg PO BID
levothyroxine 100 MCG tablet
100 mcg PO DAILY
pantoprazole 40 mg tablet,delayed release (DR/EC)
40 mg PO DAILY
Citrucel 500 mg tablet
250 mg PO HSPRN PRN (Reason: fiber suppliment)
triamcinolone acetonide [Nasacort] 55 mcg aerosol,spray
1 spray INTRANASAL HS
docusate sodium 100 mg capsule
100 mg PO DAILYPRN PRN (Reason: constipation)
cinacalcet 30 mg Tablet
30 mg PO DAILY Qty: 30 0RF
Discontinued
bumetanide 1 mg tablet
1 mg PO DAILY Qty: 30 0RF
Januvia 100 MG tablet
100 mg PO DAILY Qty: 0 0RF
Discharge Orders:
Discharge Patient (As Directed); Ordered 10/04/24
Ordered By: Tony Dale
Discharge Date and Time
Print Language: MALAYSIAN
--- NOTE | 2024-10-04 13:03 | CM ---
Chart reviewed and porter sample case met with patient and spoke with spouse by phone. Per physician patient is for discharge today to home with spouse and services. Oxygen testing shows patient needs continuous oxygen, porter sample case asked patient where
she obtained her oxygen and patient stated she did not know, porter sample case reached out to patient's spouse and he looked at tanks and patient has oxygen from [place], porter sample case contacted oxygen company and they confirmed that patient
has concentrator and portable tanks in home, nebulizer and CPAP machine. Patient has been set up for continuous oxygen in home since last February per oxygen company.
[facility]
[phone]

Plan; Home with spouse and [facility] for home care services.
--- NOTE | 2024-10-04 13:41 | W.PN.CARDCBS ---
Addendum entered and electronically signed by Yobany Angeles MD 10/04/24 14:14:
I saw and examined the patient.
The ASSISTANT DIRECTOR OF PLANT OPERATIONS or PA's note was reviewed and I agree with the note.
Comment: General: Well developed, well nourished in NAD.
Neck: Supple, no JVD, HJR, carotids +2 B/L, no bruits bilaterally.
Heart: Non displaced PMI, RRR, no murmurs, No S3, S4, no rubs.
Lungs: Scattered rhonchi at the bases
Extremities: Mild lower extremity edema bilaterally.
Neuro: Grossly nonfocal, awake, alert and oriented x3.
She really wants to go home. She understands she has a very high risk of recurrent admissions. Changed to Lasix 80 mg p.o. twice daily and check renal profile in 1 week. Stable cardiology status for discharge
Original Note:
Today's Communication / Plan
-
Rate control of persistent to permanent Afib at this point
Lasix 80 mg PO BID
Impression / Plan
-
PCP: Dr. Lake
Card: Dr. Eitan Bullock
Impression:
Admitted with acute HFpEF
Recent admission for ureteral stone and acute HF 08/11/24 until 08/18/24
Recent admission for Afib and acute HF 07/01/24 until 07/14/24
Acute HFpEF
Persistent Afib
8% burden on monitor 12/2023 and now persistent Afib since at least 07/01/24
Chronic Eliquis OAC
CROW/OHS on nocturnal CPAP with 2 L NC as an outpatient
ILD
DM 2
Severe morbid obesity, BMI 50.3
Mild to moderate aortic stenosis
Hypertension
Hypercholesterolemia
Venous insufficiency
Depression
Multiple medical allergies
Echo 07/04/2024: hyperdynamic left ventricular systolic function ejection fraction 65 to 70%. Moderate aortic stenosis with peak and mean gradients of 40 and 21 with a calculated aortic valve area of 1 cm2. Trivial pericardial effusion and no
significant valvular disease overall unchanged from prior echocardiogram
Plan:
-Weight is down 13 lbs overall this admission with Lasix 80 mg IV BID. Patient has also received intermittent doses of metolazone 2.5 mg without appreciable increase in diuresis. Pulm following as well. Diamox ordered.
-Recommend Lasix 80 mg PO BID upon d/c to home, I personally made changes to d/c instructions and talked with RN, appreciate RN reprinting the updated instructions for the patient
-EF 65% by echo 07/04/24
-New to Toprol XL 25 mg daily this admission
-New to losartan 25 mg daily this admission
-Not previously started on SGLT-2 inhibitor due to UTI.
-Patient not felt to be a candidate for rhythm control, unlikely to maintain SR due to comorbidities (obesity, CROW/OHS, HTN and DM2). Will focus on rate control. Patient is not a great candidate for amiodarone given ILD
-Cont Eliquis 5 mg BID (age 79, wt 120 kg)
-Cardiology f/u arranged, asked patient to try and come in-person to visit, but she might change to telemedicine as she has in the past
HPI: Patient came to the ER yesterday with increased SOB and is now admitted with acute HF and cardiology has been consulted. Patient was admitted with acute HFpEF 07/01/24 until 07/14/24 and diuresed 13 lbs for a d/c weight of 275 lbs. Prior to that
admission patient was taking Lasix 20 mg PO BID and then during that admission the patient was diuresed with Lasix IV and then transitioned to Bumex 1 mg PO daily at time of d/c. Patient was readmitted with acute HF and hematuria 08/11/24 until
08/18/24. Patient was treated for ureteral calculi during that admission and was also diuresed with a d/c weight of 263 lbs which was lower than her dry weight from the 07/14/24 d/c. Patient was again d/c'd on Bumex 1 mg PO daily and had a
telemedicine visit 09/21/24 and reported weight gain, edema and increased SOB. Patient had previously called the office and had her Bumex dose increased to 1 mg PO BID and during that office visit her Bumex was increased further to 2 mg PO BID, but
no change in urine output or edema per patient so she came to the ER last night. Patient reports that despite increased urine output since admission with Bumex 1 mg IV BID that her weight went up, but standing scale weight this morning is lower. No
improvement in LE edema. Still SOB. Patient also reporting increased HR into the 140s at rest at home.
Progress Note - Beauty Therapist
Subjective
Date of Service: October 04, 2024
Wants to go home, feels like she isn't getting better
Objective
Labs:
10/04/24 07:40
10/04/24 07:40
Labs
Hgb 9.6 g/dL (12.0-16.0) L 10/04/24 07:40
Hct 30.9 % (37.0-47.0) L 10/04/24 07:40
Plt Count 262 10^3/uL (130-400) 10/04/24 07:40
Sodium 137 mmol/L (135-145) 10/04/24 07:40
Potassium 3.6 mmol/L (3.5-5.1) 10/04/24 07:40
BUN 50 mg/dl (7-17) H 10/04/24 07:40
Creatinine 1.4 mg/dL (0.6-1.0) H 10/04/24 07:40
Glucose 149 mg/dl (70-99) H 10/04/24 07:40
Vital Signs and I&O:
Vital Signs
Temp Pulse Resp BP Pulse Ox
97.4 F 85 22 95/65 96
10/04/24 11:00 10/04/24 11:00 10/04/24 11:00 10/04/24 11:00 10/04/24 11:00
Vital Signs
Temp Pulse Resp BP Pulse Ox
97.4 F 85 22 95/65 96
10/04/24 11:00 10/04/24 11:00 10/04/24 11:00 10/04/24 11:00 10/04/24 11:00
Intake & Output
10/02/24 10/03/24 10/04/24 10/05/24
06:59 06:59 06:59 06:59
Intake Total 360 / 360 1080 / 1080 720 / 720
Output Total 2009 1950 / 1950 1100 / 1100
Balance -1650 / -1650 -870 / -870 -380 / -380
Physical Exam
Physical Exam
GEN: NAD. AAOx3
HEENT: EOMI
LUNGS: 2 L NC. No audible wheeze
CV: Afib on tele.
EXT: +2 hard, non-pitting B/L LE edema
NEURO: Gross non-focal
SKIN: No rash
[2024-10-04 15:00] VITALS: BP 112/77
--- NOTE | 2024-10-04 15:23 | W.PN.PUL3 ---
Today's Communication / Plan
-
Discharge planning
Advised to continue CPAP
Oxygen supplementation as necessary
Diuretics
High risk for readmission.
Understands need to follow-up closely with pulmonary in the outpatient setting.
Assessment
-
Assessment: 79-year-old female with a past medical history of asthma, hypertension, hypothyroidism, DM type II, A-fib on Eliquis, CROW on CPAP, ILD, chronic hypoxic respiratory failure who presents with shortness of breath for 3 days. She was
experiencing worsening lower extremity edema, abdominal edema and orthopnea. She says she was getting 2 pounds a day. Also had a cough with productive brown phlegm for 1 week. Previously hospitalized from 08/11 - 08/18/2024 due to hematuria which
was thought to be due to right ureteral stone in setting of Eliquis, and urology performed right ureteral stent placement on 08/12, stent was removed on 08/17. She was admitted to the hospitalist service for acute decompensated heart failure. Bumex
was continued. Her nebulizers from home for history of asthma were also resumed and CPAP for history of CROW. Blood gas obtained on the morning of 10/01 showed alkalemia with pH 7.46 and pCO2 71. She had not been using the hospital CPAP machine for
a few nights she is now on her home CPAP. Pulmonary now consulted for additional management/recommendations.
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
Eliquis, CROW on CPAP, interstitial lung disease, chronic hypoxic respiratory failure on 2 L/min with activity
Impression:
#Acute respiratory failure with hypoxia due to acute HFpEF
#Chronic respiratory failure with hypercapnia due to OHS
#Acute decompensated heart failure with increased bilateral interstitial/acinar opacities seen on CXR from 09/26/2024
#UTI
#Metabolic alkalosis due to chronic hypercapnic respiratory failure/OHS in setting of diuresis
#Chronic anemia
#Chronic diastolic heart failure with TTE from 07/04/2024 showing LVEF 65 to 70% with moderate aortic stenosis with peak/mean gradients 40/21 mmHg, and PASP mildly elevated at 36 mmHg
#Severe morbid obesity with BMI: 49.1
#History of asthma currently on nebulized budesonide
#CROW/OHS on nocturnal CPAP as an outpatient bled with 2L/min
#DM type II
#History of ulcerative colitis
#History of ILD with CT chest from 05/06/2021 showing bilateral mosaic attenuation with scattered subpleural nodules and bronchiolitis
#Paroxysmal A-fib with RVR on Eliquis
#Chronic lymphedema
Plan:
Clinical picture suggest heart failure/volume overload.
- Continue IV lasix with 80mg BID and maintain net negative fluid balance ongoing diuresis per cardiology.
- Last echo checked on 07/04/24 showing hyperdynamic LV systolic function with LVEF 65-70%, with normal RV size and function, moderate with peak/mean gradients of 40/21 mmHg, respectively, with trace MR, and mild TR with a trivial pericardial
effusion --> no significant change compared to prior echo in January 2024
Continue to follow creatinine.
-
Sleep apnea/obesity hypoventilation syndrome: Mental status at baseline.
ABG 07/07/2024: 7.42/75/66.
- Patient on BiPAP in the hospital. Recommended to continue CPAP until seen in the office. Will need to do polysomnogram and possibly transition her to BiPAP versus ASV. Likely will need to do an in-lab titration study.
- VBG 10/02/2024: 7.42/80/55
Avoid sedatives.
Patient did receive Diamox for the 2 days. Continues to have metabolic alkalosis.
She understands high risk for readmission.
Afebrile without leukocytosis. Doubt infectious etiology.
Monitor off antibiotics.
-
History of asthma: No evidence for acute exacerbation
- prn nebulized bronchodilators - not currently bronchospastic
-She says that the nebulized budesonide is not helping her breathing. She had felt better previously on the Breo.
Continue Symbicort 160 mcg 2 puffs BID (rinse mouth after use) to be used with a spacer while she is hospitalized, and she should be discharged home with this as well.
She will follow-up with pulmonary office with Dr. Castaneda to see how she is doing and to make any changes, if needed.
- Urology following for UTI and hematuria
- Defer starting antibiotics to primary team
- Follow-up urine culture
- Monitor for hematuria
- A fib management per cardiology
- Given her history of ? ILD, would avoid amiodarone if possible
- DVT ppx: Eliquis-on hold due to hematuria.
Discharge planning noted. Patient is strongly advised to make a follow-up appointment soon in our office to address her sleep disordered
Patient should follow-up with us in the office she had previously seen Dr. Castaneda. Her last visit was 03/09/2024.
Data:
CXR 09/26/2024: Limited examination - probable congestive heart failure. No focal dense consolidation to suggest pneumonia.
Subjective Data
-
Date of Service:
Date of Service: October 04, 2024
Chief Complaint: Pulmonary Follow Up (Acute hypoxemic respiratory failure-acute heart failure with preserved ejection fraction.)
Subjective:
Patient denies any shortness of breath at rest.
Patient would like to go home
Review of Systems
Cardiopulmonary: Dyspnea (none at rest)
GI: Abdominal Pain (n) and Nausea (n)
Objective Data
Data Reviewed
Vital Signs / I&O / Oxygen:
Vital Signs
Temp Pulse Resp BP Pulse Ox
97.4 F 85 22 95/65 96
10/04/24 11:00 10/04/24 11:00 10/04/24 11:00 10/04/24 11:00 10/04/24 11:00
Intake and Output
10/03/24 10/04/2425
06:59 06:59 06:59
Intake Total 1080 / 1080 720 / 720
Output Total 1950 / 1950 1100 / 1100
Balance -870 / -870 -380 / -380
SaO2 96
Nasal Cannula flow liters per 2
minute
Physical Exam
General: Comfortable
HEENT: Normocephalic
Cardiovascular: S1-S2
Respiratory: Non-Labored Respirations
GI: Soft and Non Distended
Neurology: Awake and No Motor Deficits
Skin: Warm and Other (Venous stasis changes on lower extremities)
Labs/Micro/Reports
Lab Data
10/04/24 07:40
10/04/24 07:40
Microbiology
10/02/24 11:54 Urine Urine Culture - Final
09/29/24 18:22 Urine Urine Culture - Final
--- NOTE | 2024-10-04 16:33 | CM ---
TC from [facility], [facility], updated clinicals sent via [employer]
== END 2024-10-04 16:04 | disposition home health service (06) | DRG 291 ==
LOC: 4 WEST ACU 18:19
PROVIDERS: Internal Medicine; Registered Nurse; ADMITTING PHYSICIAN Internal Medicine; ATTENDING PHYSICIAN Internal Medicine; CONSULT PHYSICIAN Internal Medicine Cardiovascular Disease; CONSULT PHYSICIAN Internal Medicine Critical Care Medicine; CONSULT PHYSICIAN Specialist; EMERGENCY PHYSICIAN Student in an Organized Health Care Education/Training Program; FAMILY PHYSICIAN Internal Medicine
DX: I13.0 Hypertensive heart and chronic kidney disease with heart failure and stage 1 through stage 4 chronic kidney disease, or unspecified chronic kidney disease (principal); I50.33 Acute on chronic diastolic (congestive) heart failure; J96.21 Acute and chronic respiratory failure with hypoxia; J96.22 Acute and chronic respiratory failure with hypercapnia; E66.2 Morbid (severe) obesity with alveolar hypoventilation; I48.19 Other persistent atrial fibrillation; Z68.43 Body mass index [BMI] 50.0-59.9, adult; J84.9 Interstitial pulmonary disease, unspecified; N39.0 Urinary tract infection, site not specified; N17.9 Acute kidney failure, unspecified; E87.3 Alkalosis; D68.32 Hemorrhagic disorder due to extrinsic circulating anticoagulants; I25.10 Atherosclerotic heart disease of native coronary artery without angina pectoris; N18.32 Chronic kidney disease, stage 3b; E87.6 Hypokalemia; Z79.01 Long term (current) use of anticoagulants
CPT/HCPCS: 71046; 80048; 80053; 80061; 81003; 81015; 82248; 82728; 82746; 82805; 82962; 83036; 83540; 83550; 83735; 83880; 84100; 84443; 84484; 85025; 85027; 87086; 87502; 87811; 93005; 94640; 94660; 96374; 97162; 97166; 97530; 97535; 99285

== ENCOUNTER 2024-12-08 04:29 | Inpatient (IN) | payer OTHER, SELFPAY ==
[2024-12-07] VITALS (13 sets, daily range): BP systolic 108–164; BP diastolic 75–151; PULSE 2–94; BMI 42.6
[2024-12-07 19:09] LABS: Hematocrit 37.4 % (37.0-47.0); Hemoglobin 10.9 g/dL (12.0-16.0); Mean Corp Hgb Conc. 29.1 g/dL (33.0-37.0); Mean Corpuscular Volume 78.9 fL (81.0-99.0); Nucleated Red Blood Cells % 0 %; Platelet Count 319 10^3/uL (130-400); Red Cell Dist. Width 19.5 % (11.5-14.5)
[2024-12-07 19:22] LABS: ALT (SGPT) 13 U/L (0-35); AST (SGOT) 22 U/L (14-36); Albumin 4.5 g/dl (3.5-5.0); Alkaline Phosphatase 209 U/L (38-126); Blood Urea Nitrogen 28 mg/dl (7-17); Calcium 9.3 mg/dl (8.4-10.2); Carbon Dioxide 32 mmol/L (22-30); Chloride 97 mmol/L (98-107); Estimated Creatinine Clearance 61 ml/min; Glucose 156 mg/dl (70-99); Potassium 4.4 mmol/L (3.5-5.1); Sodium 140 mmol/L (135-145); Total Protein 8.5 g/dl (6.3-8.2); eGFR 57.66
[2024-12-07 19:35] LABS: Troponin I < 0.012 ng/ml
[2024-12-08] VITALS (32 sets, daily range): BP systolic 98–161; BP diastolic 47–127; PULSE 2–128; O2SAT 98; BMI 48.8
[2024-12-08 00:37] LABS: B.E. 12.0 mmol/L; O2 Saturation % 98.9 % (94-98); PO2 125 mmHg (83-108)
[2024-12-08 00:38] LABS: HCO3 40.7 mmol/L (21-28); PCO2 79 mmHg (32-35)
--- NOTE | 2024-12-08 01:27 | ED.GENMED ---
History of Present Illness
General
Chief Complaint: Breathing Problem
Source: patient
Exam Limitations: none
Time Seen by Provider: 12/07/24 22:28
Nursing documentation reviewed up to this point in time: agreed with
History of Present Illness
History of Present Illness:
79-year-old female brought in to the emergency department for shortness of breath. She does have a history of CHF and COPD. Patient has been seen multiple times and admitted for CHF and A-fib with pneumonia. History is limited as patient is
somnolent.
Note:
PHYSICAL EXAM
General: Alert, mild to moderate acute distress. Obese
Skin: Warm, dry.
Head: Normocephalic, atraumatic.
Neck: Supple, trachea midline.
Eye Ears, nose, mouth and throat: Oral mucosa moist.
Cardiovascular: Normal peripheral perfusion, no edema.
Respiratory: Respirations are slightly labored but not on BiPAP.
Gastrointestinal: Abdomen nondistended.
Back: Normal range of motion, normal alignment.
Musculoskeletal: Normal range of motion, normal strength.
Neurological: Somnolent
Psychiatric: Limited interaction
CARE-UPDATE
12/07/24 - 22:44
Patient has experienced episodes of shortness of breath with oxygen saturation sometimes dropping into the 80s at night over the past few days. During a recent assessment, when awake and on 2 liters of oxygen, her saturation improved to 94%. The
family reports a tendency for her to retain CO2 during hospital stays, prompting a request for consideration of BiPAP therapy. Adjustments to her CPAP usage at home have been made, with settings at around 2-3 liters. Currently, she shows improved
alertness and comfort when breathing on 2 liters of oxygen.
CARE-UPDATE
12/07/24 - 23:29
Switched from CPAP to BiPAP; oxygen saturation now at 97%. Vital signs are stabilizing.
CARE-UPDATE
12/08/24 - :29
ProBNP remains elevated at 1200, consistent with prior admission levels. Troponin is undetectable. Arterial blood gas indicates a pH of 7.32, PCO2 of 79, and bicarbonate of 40.7, reflecting a slight worsening of respiratory acidosis since the last
visit.
CARE-UPDATE
12/08/24 - 01:32
Patient exhibits chronic respiratory acidosis, as confirmed by recent ABG results.
Disposition:
SUMMARY OF ENCOUNTER
A 79-year-old female patient presented with hypoxia and dyspnea. She was initially hypoxic on room air and could not saturate appropriately on her home CPAP settings. Ventilation was adjusted to BiPAP settings of IPAP 16/EPAP 8, which improved her
oxygen saturation. Arterial Blood Gas (ABG) indicated she was hypercarbic, suggesting respiratory acidosis. ProBNP levels indicate a potential exacerbation of congestive heart failure (CHF).
DISPOSITION
Admit to the hospital service.
ASSESSMENT
The patient is experiencing respiratory acidosis likely due to chronic respiratory conditions, possibly exacerbated by CHF.
INDEPENDENT REVIEW OF LABS AND INTERPRETATION OF TESTS
My independent review of the arterial blood gas (ABG) indicates hypercarbia, consistent with respiratory acidosis.
My independent review of ProBNP shows elevation, consistent with CHF exacerbation.
MEDICAL DECISION MAKING
-Complexity of Data Reviewed: Chronic conditions affecting care include respiratory acidosis and CHF exacerbation. Differential diagnosis included COPD exacerbation and CHF exacerbation.
-Data:
Category 1
No specific external record reviews were mentioned.
Category 2
No input from independent historians; information provided exclusively by the patient.
Category 3
Discussion of management with hospital services for potential admission due to patients current condition.
-Risk:
Prescription medication was considered given the complexity of the patient�s respiratory status and CHF. Decisions regarding diagnostic testing with risks were also undertaken during this emergency department visit.
DIAGNOSIS
- Respiratory acidosis (ICD-10: J96.2)
- Congestive heart failure exacerbation (ICD-10: I50.9)
Phy Exam
General Physical Exam
General Presentation: moderate distress
General age: appears older than age
General Skin: warm and dry
General Habitus: elderly and obese
General Mental: confused
General Hydration: appears well hydrated
Pulmonary Exam
Pulmonary Exam: generalized wheezing
Oxygen Status: BiPAP and CPAP
Respirations: moderate effort
Neurological Exam
Neurological Exam: other (Labile)
Musculoskeletal Exam
Musculoskeletal Exam: full ROM and edema
Skin Exam
Skin Exam: normal color and warm/dry
Psychiatric Exam
Psychiatric Exam: labile
Scores
Heart Failure Risk
Heart Failure Risk Score: Yes
History of Stroke or TIA: No
History of intubation for respiratory distress: No
Heart rate on ED arrival >/= 110: No
SaO2 <90% on arrival on room air: Yes
HR >/=110 during 3min walk test (or too ill to perform test): Yes
ECG has acute ischemic changes: No
Urea >/=12mmol/L (BUN 33.6mg/dL): No
Serum CO2>/=35mmol/L: No
Troponin I or T elevated to MS Level (0.4mg/dL): No
NT-proBNP >/=5,000ng/L (5,000pg/ml): No
HF Risk Score: 3
Admission Status: HIGH RISK 15.9% Consider SNF treatment or admission to hospital
Course
Orders/Labs/Results
Orders:
Orders
12/07/24 18:43
EKG [Electrocardiogram (*1)] Urgent
Reason for Study: Shortness of Breath
CR Chest - 2 Views Urgent
Comment:
Reason For Exam: shortness of breath
12/07/24 18:44
EKG- Treatment ONCE
12/07/24 18:45
Complete Blood Count/With Diff Urgent
Comprehensive Metabolic Panel Urgent
NT-proBNP Urgent
Troponin I Urgent
12/07/24 23:58
ABG [Arterial Blood Gas] Urgent
%Oxygen/Room Air: bipap
12/08/24 00:03
Bipap [RESP] Urgent
Patient to use own unit?: Yes
Inspiratory Pressure (cm H2O): 16
Expiratory Pressure (cm H2O): 8
12/08/24 01:38
CT Head W/o Iv Contrast Urgent
Comment:
Reason For Exam: confusion
Bumetanide [Bumex] 1 mg IV NOW STA
12/08/24 04:08
Admit/Transfer Patient As Directed
Co-Sign Provider:
Level of Care: Inpatient admission
Assign to:: IMU- Intermediate Care
Physician / Group: Diony
Diagnosis: CHF, Hypoxemic / Hypercapnic Resp Failure
Reason for Hospitalization: CHF, Hypoxemic / Hypercapnic Resp Failure
Expected length of stay greater than two midnights?: Yes
ELOS- Estimated Length of Stay in days: 3
I certify the patient meets the requirements for IP care: Yes
PRN Pain Medication Management As Directed
May give lesser potent ordered pain med per pt: Yes
preference::
Protocol:: Medication orders for pain may be administered in a
manner that supports deferring to patient preference
when the pt is:
- Requesting an ordered lesser potent pain medication.
Least to most potent pain medications are defined
as: acetaminophen < NSAID < tramadol < opioids
(morphine, oxycodone, hydromorphone).
- Requesting a lesser dose of the same medication IF
ORDERED.
- Requesting a less intrusive route of administration
if both routes are prescribed by the provider (PO <
IV).
12/08/24 04:10
Code Status As Directed
Resuscitation Status: Full Code
Abnormal Lab Results
12/07/24 12/08/24
18:45 00:31
Hgb 10.9 L g/dL
(12.0-16.0)
MCV 78.9 L fL
(81.0-99.0)
MCH 23.0 L pg
(27.0-31.0)
MCHC 29.1 L g/dL
(33.0-37.0)
RDW 19.5 H %
(11.5-14.5)
Abs Immat Gran (auto) 0.1 H 10^3/uL
(0-0.05)
Absolute Neuts (auto) 7.9 H 10^3/uL
(1.4-6.5)
Neutrophils % 79.8 H %
(42.2-75.2)
Lymphocytes % 12.1 L %
(20.5-51.1)
pH 7.32 L
(7.35-7.45)
pCO2 79 H* mmHg
(32-35)
pO2 125 H mmHg
(83-108)
HCO3 40.7 H* mmol/L
(21-28)
ABG O2 Sat (Measured) 98.9 H %
(94-98)
Chloride 97 L mmol/L
(98-107)
Carbon Dioxide 32 H mmol/L
(22-30)
BUN 28 H mg/dl
(7-17)
Glucose 156 H mg/dl
(70-99)
Alkaline Phosphatase 209 H U/L
(38-126)
Total Protein 8.5 H g/dl
(6.3-8.2)
12/07/24 18:45
12/07/24 18:45
Vital Signs
Initial and Last Documented VS:
Initial Vital Signs
Pulse Resp Pulse Ox
90 23 92
12/07/24 18:47 12/07/24 18:47 12/07/24 18:47
Last Documented Vital Signs
Temp Pulse Resp BP Pulse Ox
97.6 F 109 25 131/100 100
12/07/24 18:51 12/08/24 04:00 12/08/24 04:00 12/08/24 04:00 12/08/24 04:00
*Radiology
Radiology exam reviewed: radiology read reviewed
*Pulse Oximetry
SaO2: 93
Nasal Cannula flow liters per minute: 4
Oxygen Mode of Delivery: CPAP
Patient hypoxic: yes
*Critical Care Note
Total Time (30-74mins, 75-104mins- exclusive of procedures): Not Applicable
Update Note
Update Note:
NAME: SARAY VUONG
DATE OF EXAM: 12/08/2024
Patient No: [id number]
Physician: SERGEY
Date of : 1945
Past Medical History (entered by Technologist):
Reason For Exam (entered by Technologist): confusion
Other Notes (entered by Technologist): no prior
Additional Information (per Vision Radiologist): Confusion
CT head
Comparison: None
IMPRESSION:
no acute intracranial findings
age appropriate global cerebral volume loss
Minimal chronic microvascular changes in periventricular white matter
Report faxed directly to ER at 4:21 AM ET
ED Attending Note
-
Portions of this chart may have been created with voice recognition software.� Occasional wrong word or��sound alike� substitutions may have occurred due to the inherent limitations of voice recognition software.
Discharge Plan
Departure
Patient Disposition: Admit
Date of Disposition: 12/08/24
Time of Disposition: 02:53
Presentation/result/management discussed w/ accepting MD/DO: Hospitalist
Condition: Good
Discharge Problem:
CHF exacerbation, COPD (chronic obstructive pulmonary disease)
Prescriptions:
No Action
budesonide 0.5 mg/2 mL Suspension For Nebulization
0.5 mg INHALATION R DAILY
sodium chloride 0.65 % Aerosol,[place]
1 spray INTRANASAL TIDPRN PRN (Reason: dryness)
cyanocobalamin (vitamin B-12) [Vitamin B-12] 1,000 mcg Tablet
1,000 mcg PO DAILY Qty: 0 0RF
cetirizine 10 MG tablet
10 mg PO DAILY Qty: 0 0RF
atorvastatin 10 MG tablet
10 mg PO QPM 30 Days Qty: 30 0RF
diltiazem HCl 240 mg Capsule,Extended Release 24hr
240 mg PO TID Qty: 0 0RF
montelukast 10 mg Tablet
10 mg PO QPM Qty: 0 0RF
mesalamine 1.2 gram Tablet,Delayed Release (Dr/Ec)
2.4 g PO DAILY Qty: 0 0RF
travoprost 0.004 % Drops
1 drp BOTH EYES HS
acetaminophen 650 mg Tablet Extended Release
650 mg PO DAILYPRN PRN (Reason: mild pain)
vitamin A and D Cream
1 applic TOPICAL DAILY
Citrucel 500 mg tablet
250 mg PO HSPRN PRN (Reason: fiber suppliment)
docusate sodium 100 mg capsule
100 mg PO DAILYPRN PRN (Reason: constipation)
cinacalcet 30 mg Tablet
30 mg PO DAILY Qty: 30 0RF
furosemide [Lasix] 80 mg tablet
80 mg PO BID AT 0800,1600 Qty: 60 11RF
ascorbic acid (vitamin C) 100 mg Tablet
100 mg PO DAILY
aspirin 81 mg Tablet
81 mg PO DAILY
Synjardy XR 12.5-1,000 mg Tablet, Ir - Er, Biphasic 24hr
1 tab PO DAILY
iron bisglycinate chelate 28 mg iron Capsule
25 mg PO DAILY
Referrals:
Andreas Lake MD [Family Provider, Internal Medicine]
Interventions
Interventions:
*Risk Screen - Suicide Last Done: 12/07/24 18:51
*General Assessment Last Done: 12/07/24 18:51
*Neglect/Abuse Screening Last Done: 12/07/24 18:51
*ED- Fall Risk Assessment Last Done: 12/07/24 18:51
*ED COVID-19 Vaccine History Last Done: 12/07/24 18:51
ED- Cardiac Assessment Last Done: 12/07/24 18:51
ED- Pulmonary Assessment Last Done: 12/07/24 18:51
Discharge Date and Time
Print Language: SCOTTISH
[2024-12-08] MEDS: BUMEX 1 MG IV (01:56)
--- NOTE | 2024-12-08 03:50 | HPS.HSE ---
Family Physician
-
Family Physician: Andreas Lake
Chief Complaint
-
SOB, Lethargic
History of Present Illness
Patient is a 79y F with PMH significant for CHF, CROW, chronic venous stasis and DM-II who presents to ED for evaluation of SOB and lethargy. Patient has been using oxygen at home with minimal improvement in her symptoms. She was answering
questions intermittently in the ED - though at the time of my exam she was responsive only to noxious stimuli and would not answer questions.
Medical History
Past Medical History
Past Medical History: Reports Other
Additional Past Medical History:
lymphedema
cellulitsi
peripheral edema
venous stasis
sacral wound
CROW
venous stasis dermatitis
GERD
CROW
type 2 DM
bursitis of left shoulder
htn
asthma
ulcerative colitis
atrial fib
Past Surgical History: Reports Other
Additional Past Surgical History:
hysteroscopy
kidney stone removal
Social History
Tobacco: Former Smoker
Alcohol: None
Drug: None
Personal:
Living: With Family
Family History
Family History: Not pertinent
Allergies / Home Medications
Allergies reflects when Allergies were last updated in [facility].
Home Medications with original date entered in [facility]
Allergy/Medication List:
Allergies
Allergy/AdvReac Type Severity Reaction Status Date / Time
strawberry Allergy Unknown Unknown Verified 09/30/24 13:21
alendronate sodium (From Allergy esophagus Verified 09/26/24 15:14
Fosamax) spasms
cephalexin (From Keflex) Allergy throat Verified 09/26/24 15:14
closed
clarithromycin (From Biaxin) Allergy Hives Verified 09/26/24 15:14
erythromycin base Allergy Rash, Verified 09/26/24 15:14
diarrhea
fentanyl Allergy difficulty Verified 09/26/24 15:14
awakening
from
surgery
fish oil Allergy Unknown Verified 09/26/24 15:14
house dust Allergy sneeze Verified 09/26/24 15:14
hyoscyamine Allergy throat Verified 09/26/24 15:14
tightening
influenza virus vaccine, Allergy Unknown Verified 09/26/24 15:14
specific
Iodinated Contrast Media Allergy Unknown Verified 09/26/24 15:14
latex Allergy Rash Verified 09/26/24 15:14
levalbuterol (From Xopenex) Allergy 'bee sting Verified 09/26/24 15:14
sensation
all over'
levofloxacin (From Levaquin) Allergy difficulty Verified 09/26/24 15:14
breathing
mold Allergy rash/hives/ Verified 09/26/24 15:14
sob
Penicillins Allergy Hives Verified 09/26/24 15:14
pneumococcal vaccine Allergy Rash Verified 09/26/24 15:14
shellfish derived Allergy hives/difficulty Verified 09/26/24 15:14
breathing
tetanus and diphtheria Allergy wheezing Verified 09/26/24 15:14
toxoids
vancomycin Allergy Shortness Verified 09/26/24 15:14
of Breath
Home Medications
budesonide 0.5 mg/2 mL suspension for nebulization 0.5 mg inhalation R DAILY Lung/Breathing Issues 07/01/24
sodium chloride 0.65 % nasal spray aerosol 1 spray intranasal TIDPRN PRN dryness 07/01/24
atorvastatin 10 mg tablet 10 mg PO QPM High cholesterol 30 days #30 tabs 07/14/24
cetirizine 10 mg tablet 10 mg PO DAILY Allergies #0 tabs 07/14/24
cyanocobalamin (vitamin B-12) 1,000 mcg tablet (Vitamin B-12) 1,000 mcg PO DAILY Supplement #0 tabs 07/14/24
diltiazem HCl 240 mg capsule,extended release 24 hr 240 mg PO TID Arrhythmia #0 caps 07/14/24
mesalamine 1.2 gram tablet,delayed release 2.4 g (2 x 1.2 gram) PO DAILY Gastrointestinal issue #0 tabs 07/14/24
montelukast 10 mg tablet 10 mg PO QPM Allergies #0 tabs 07/14/24
acetaminophen 650 mg tablet,extended release 650 mg PO DAILYPRN PRN mild pain 08/11/24
docusate sodium 100 mg capsule 100 mg PO DAILYPRN PRN constipation 08/11/24
methylcellulose (laxative) 500 mg tablet (Citrucel) 250 mg PO HSPRN PRN fiber suppliment 08/11/24
travoprost 0.004 % eye drops 1 drp BOTH EYES HS Eye Condition 08/11/24
vitamin A and D 1 applic topical DAILY b/l buttock sore 08/11/24
cinacalcet 30 mg tablet 30 mg PO DAILY #30 tabs 08/18/24
furosemide 80 mg tablet (Lasix) 80 mg PO BID AT 0800,1600 Heart Failure #60 tabs 10/04/24
ascorbic acid (vitamin C) 100 mg tablet 100 mg PO DAILY 12/07/24
aspirin 81 mg tablet 81 mg PO DAILY 12/07/24
empagliflozin 12.5 mg-metformin ER 1,000 mg tablet,extended rel 24 hr (Synjardy XR) 1 tab PO DAILY 12/07/24
iron bisglycinate chelate 25 mg PO DAILY 12/07/24
Review of Systems
-
Unable to obtain full review of systems at this time due to: Other (Lethargic)
Physical Exam
Vital Signs
Vital Signs
Temp Pulse Resp BP Pulse Ox
97.6 F 98 18 126/88 93
12/07/24 18:51 12/08/24 01:56 12/07/24 22:45 12/08/24 01:56 12/08/24 01:29
Physical Exam
General: Other (79y F responsive to noxious stimuli. Does not answer questions / follow commands.)
HEENT: Other (Thick neck. BiPAP in place.)
Respiratory: Other (Decreased BS throughout. Few rales at bases.)
Cardiac: S1/S2 and Regular Rhythm; No Murmur
GI: Soft, Non Tender, Non Distended, Normal Bowel Sounds and Other (Obese)
Musculoskeletal: No Clubbing, No Cyanosis and Other (Chronic venous stasis skin changes with nodular changes and erythema. Weeping.)
Laboratory Results
-
12/07/24 18:45
12/07/24 18:45
Laboratory Results
pH 7.32 (7.35-7.45) L 12/08/24 00:31
pCO2 79 mmHg (32-35) H* 12/08/24 00:31
pO2 125 mmHg (83-108) H 12/08/24 00:31
HCO3 40.7 mmol/L (21-28) H* 12/08/24 00:31
Total Bilirubin 0.8 mg/dl (0.2-1.3) 12/07/24 18:45
AST 22 U/L (14-36) 12/07/24 18:45
ALT 13 U/L (0-35) 12/07/24 18:45
Alkaline Phosphatase 209 U/L (38-126) H 12/07/24 18:45
Troponin I < 0.012 ng/ml 12/07/24 18:45
Impression/Plan
-
A/P: Patient is a 79y F with PMH significant for CHF and CROW who presents to ED complaining of worsening SOB x a few days and is intermittently lethargic here in the ED.
Acute on Chronic HFpEF
Acute on Chronic Hypoxemic Respiratory Failure secondary to the above
- Admit for further evaluation and treatment.
- CXR shows pulmonary edema, BNP elevated from prior.
- Continue IV Lasix BID.
- Echo done in July with normal LVEF and moderate .
- Follow I/Os, daily weights and monitor for clinical improvement.
- Previously on low-dose spironolactone which has since been discontinued.
- Cardiology evaluation.
Acute TME / Lethargy
- ? secondary to hypercapnia - though this does not appear acute / changed from prior.
- CT head done in the ED without acute abnormality.
- Follow for any new / worsening symptoms.
- Patient more alert after my exam - answering questions and following commands.
Chronic Hypercapnic Respiratory Failure
Obesity Hypoventilation Syndrome
- pCO2 mid-70s and consistent with prior values.
- pH minimally decreased from prior.
- Continue BiPAP overnight. Patient previously recommended BiPAP at home but declined - uses CPAP only.
- Follow for clinical changes.
Asthma without Acute Exacerbation
- No evidence of wheezing on exam.
- Continue usual inhaled medications and follow for any changes.
Persistent Atrial Fibrillation
- Stable. Continue diltiazem.
- Patient no longer on Eliquis per current med list (held previously due to hematuria).
Anemia of Chronic Disease
- Stable. Hgb is at / near known baseline.
- Follow for any changes.
DM-II
- Stable. Hold PO medications.
- Follow glucose and cover with SSI as needed.
- Update A1C.
Hypothyroidism
- Continue current T4 replacement.
Hyperparathyroidism
- Continue Cinacalcet.
Chronic Venous Stasis Dermatitis
- Local care / Wound Care eval to lower extremities.
DVT Prophylaxis: Lovenox
Code Status: Full
--- NOTE | 2024-12-08 05:21 | PTCARENOTE ---
Received pt fom ER,awake alert tolerated transfer well,pt maintained on BIPAP O2 sats upon arrival 98% pt hr 100 Afib.Pt can turn for assessment becomes tachypneic,pt answered questions appropriately.VS stable sleeping after assessment,,close
observation ongoing.
[2024-12-08 05:37] LABS: Hematocrit 35.1 % (37.0-47.0); Hemoglobin 10.0 g/dL (12.0-16.0); Mean Corp Hgb Conc. 28.5 g/dL (33.0-37.0); Mean Corpuscular Volume 80.9 fL (81.0-99.0); Platelet Count 292 10^3/uL (130-400); Red Cell Dist. Width 19.0 % (11.5-14.5)
[2024-12-08 06:05] LABS: Blood Urea Nitrogen 25 mg/dl (7-17); Calcium 8.9 mg/dl (8.4-10.2); Carbon Dioxide 37 mmol/L (22-30); Chloride 97 mmol/L (98-107); Estimated Creatinine Clearance 64 ml/min; Glucose 125 mg/dl (70-99); HDL Cholesterol 48 mg/dl; LDL Cholesterol, Calculated 100 mg/dl; Potassium 4.1 mmol/L (3.5-5.1); Sodium 142 mmol/L (135-145); Very Low Density Lipoprotein 30 mg/dl (0-30); eGFR > 60.00
[2024-12-08 06:15] LABS: Troponin I < 0.012 ng/ml
--- NOTE | 2024-12-08 07:24 | CON.CAR ---
Addendum entered and electronically signed by Hood Sy MD 12/08/24 13:34:
79-year-old woman admitted with acute on chronic HFpEF with marked shortness of breath and lethargy.
PMH: Chronic HFpEF, persistent/permanent atrial fibrillation, obstructive sleep apnea, type 2 diabetes, obesity, hypertension, hyperlipidemia, mild to moderate aortic stenosis, chronic venous insufficiency, last admitted in September 2024 with discharge
weight 262 pounds, history of UTIs, vaginal bleeding,
Current medications: Aspirin 81 mg a day, atorvastatin 10 mg at bedtime, Pulmicort, Zyrtec, Sensipar, diltiazem CD2 140 mg 3 times daily, Singulair, Xalatan, furosemide 80 mg IV twice daily, metoprolol ER 25 mg daily, enoxaparin, insulin
136/84, pulse 119, respirate 30, afebrile, morbidly obese, diminished breath sounds, irregular rate and rhythm, abdomen morbidly obese 3+4+ edema with chronic stasis changes, JVD difficult to assess, soft systolic murmur difficult to quantitate
Chest x-ray morbidly obese, cardiomegaly
Echocardiogram July 2024: Hyperdynamic LV, EF 65-70%, normal RV, trace MR, moderate aortic stenosis, peak/mean gradient 40/21 mmHg, mild TR, pulmonary artery systolic pressure 36, aortic valve area 1.0 cm2 trace AI
Hemoglobin 10, white count 7.6, pH 7.32, KBT200, bicarb 41, PO2 125, simultaneous venous gas 7.49, BUN and creatinine 25 and 0.9, potassium 4.1
Impression: As below per Catina David. Reviewed in detail and agree, unless otherwise specified.
Plan:
She presents with acute on chronic HFpEF with permanent atrial fibrillation and rapid ventricular response despite the fact that she is on high-dose diltiazem and metoprolol.
Currently on IV Lasix 80 mg twice daily
Consider addition of amiodarone for rate control, consider addition of digoxin. May need to consider strategy of ablate and pace. She is followed by Dr. Aldo palm.
She is listed as being on epic Liposyn but has a history of UTI, is not currently receiving this
For HFpEF we could consider the addition of spironolactone
We will continue to follow-up
Long-term prognosis uncertain at this time
Original Note:
Consultation
Consultation Request
Date/Time Consultation Requested: 12/08/2024, 0451
Date/Time Consultation Performed: 12/08/2024, 2726
Requesting Provider: Dr Vora
Performing Provider: CECIL Rivera for Dr Sy
Reason for Consultation: HF
Medical History
-
Chief Complaint: SOB and lethargy
History of Present Illness:
Patient presented to ED 12/08/2024 with increased SOB and lethargy, found to be in acute on chronic heart failure preserved EF, cardiology consulted.
She is a 79-year-old female with a history of heart failure preserved EF, persistent atrial fibrillation, obstructive sleep apnea, type 2 diabetes, obesity, hypertension, hyperlipidemia, aortic stenosis (mild to moderate) venous insufficiency. She
had admissions for heart failure in early September 2024 and Jul 2024. Discharge weight last admission 262 pounds 10/04/2024. Admission weight on bed scale 266 pounds. On Lasix 80 mg daily in outpatient setting. Last admission 09/2024 started on Toprol
25 mg daily and losartan 25 mg daily. Not started on SGLT2 due to UTI. Had cardiology televisit for hospital follow-up in September 2024 with stable home weights and was still on Toprol and losartan but now no longer on med list. Eliquis stopped in September
2024 by PCP due to hematuria and vaginal bleeding.
ED workup: EKG A-fib, heart rate 110 bpm.
Chest x-ray moderate acute interstitial and alveolar cardiogenic pulmonary edema
proBNP 1200 (of note proBNP 1430 08/2024, previous admission for heart failure)
Troponin undetectable x 2
BUN/creatinine 28/1.0, K4.4
PMH:
3 recent admissions for acute HF 07/2024, 07/2024, 08/2024
Persistent Afib
8% burden on monitor 12/2023 and now persistent Afib since at least 07/01/24
Chronic Eliquis OAC
Hematuria and vaginal bleeding, Eliquis stopped 09/2024 outpatient setting
CROW/OHS on nocturnal CPAP with 2 L NC as an outpatient
ILD
ureteral stone 07/2024
DM 2
Severe morbid obesity, BMI 50.3
Mild to moderate aortic stenosis
Hypertension
Hypercholesterolemia
Venous insufficiency
Depression
Multiple medical allergies
Past Medical History
Past Medical History: Arrhythmias and CHF
Social History
Tobacco: Non-Smoker
Alcohol: None
Drug: None
Personal:
Living: With Family
Employment: Not Employed
Family History
Family History: CAD, Cancer, Hypertension and Other (PE)
Allergies / Home Medications
Allergy/AdvReac Type Severity Reaction Status Date / Time
strawberry Allergy Unknown Unknown Verified 09/30/24 13:21
alendronate sodium (From Allergy esophagus Verified 09/26/24 15:14
Fosamax) spasms
cephalexin (From Keflex) Allergy throat Verified 09/26/24 15:14
closed
clarithromycin (From Biaxin) Allergy Hives Verified 09/26/24 15:14
erythromycin base Allergy Rash, Verified 09/26/24 15:14
diarrhea
fentanyl Allergy difficulty Verified 09/26/24 15:14
awakening
from
surgery
fish oil Allergy Unknown Verified 09/26/24 15:14
house dust Allergy sneeze Verified 09/26/24 15:14
hyoscyamine Allergy throat Verified 09/26/24 15:14
tightening
influenza virus vaccine, Allergy Unknown Verified 09/26/24 15:14
specific
Iodinated Contrast Media Allergy Unknown Verified 09/26/24 15:14
latex Allergy Rash Verified 09/26/24 15:14
levalbuterol (From Xopenex) Allergy 'bee sting Verified 09/26/24 15:14
sensation
all over'
levofloxacin (From Levaquin) Allergy difficulty Verified 09/26/24 15:14
breathing
mold Allergy rash/hives/ Verified 09/26/24 15:14
sob
Penicillins Allergy Hives Verified 09/26/24 15:14
pneumococcal vaccine Allergy Rash Verified 09/26/24 15:14
shellfish derived Allergy hives/difficulty Verified 09/26/24 15:14
breathing
tetanus and diphtheria Allergy wheezing Verified 09/26/24 15:14
toxoids
vancomycin Allergy Shortness Verified 09/26/24 15:14
of Breath
�Medication �Instructions �Recorded �Confirmed �Type
budesonide 0.5 mg/2 mL suspension 0.5 mg inhalation R DAILY 07/01/24 12/07/24 History
for nebulization Lung/Breathing Issues
sodium chloride 0.65 % nasal spray 1 spray intranasal TIDPRN PRN 07/01/24 12/07/24 History
aerosol dryness
atorvastatin 10 mg tablet 10 mg PO QPM High cholesterol 30 07/14/24 12/07/24 Rx
days #30 tabs
cetirizine 10 mg tablet 10 mg PO DAILY Allergies #0 tabs 07/14/24 12/07/24 Rx
cyanocobalamin (vitamin B-12) 1,000 mcg PO DAILY Supplement #0 07/14/24 12/07/24 Rx
1,000 mcg tablet (Vitamin B-12) tabs
diltiazem HCl 240 mg 240 mg PO TID Arrhythmia #0 caps 07/14/24 12/07/24 Rx
capsule,extended release 24 hr
mesalamine 1.2 gram tablet,delayed 2.4 g (2 x 1.2 gram) PO DAILY 07/14/24 12/07/24 Rx
release Gastrointestinal issue #0 tabs
montelukast 10 mg tablet 10 mg PO QPM Allergies #0 tabs 07/14/24 12/07/24 Rx
acetaminophen 650 mg 650 mg PO DAILYPRN PRN mild pain 08/11/24 12/07/24 History
tablet,extended release
docusate sodium 100 mg capsule 100 mg PO DAILYPRN PRN constipation 08/11/24 12/07/24 History
methylcellulose (laxative) 500 mg 250 mg PO HSPRN PRN fiber 08/11/24 12/07/24 History
tablet (Citrucel) suppliment
travoprost 0.004 % eye drops 1 drp BOTH EYES HS Eye Condition 08/11/24 12/07/24 History
vitamin A and D 1 applic topical DAILY b/l buttock 08/11/24 12/07/24 History
sore
cinacalcet 30 mg tablet 30 mg PO DAILY #30 tabs 08/18/24 12/07/24 Rx
furosemide 80 mg tablet (Lasix) 80 mg PO BID AT 0800,1600 Heart 10/04/24 12/07/24 Rx
Failure #60 tabs
ascorbic acid (vitamin C) 100 mg 100 mg PO DAILY 12/07/24 12/07/24 History
tablet
aspirin 81 mg tablet 81 mg PO DAILY 12/07/24 12/07/24 History
empagliflozin 12.5 mg-metformin ER 1 tab PO DAILY 12/07/24 12/07/24 History
1,000 mg tablet,extended rel 24 hr
(Synjardy XR)
iron bisglycinate chelate 25 mg PO DAILY 12/07/24 12/07/24 History
Review of Systems
-
Unable to obtain full review of systems at this time due to: Other (Patient sleeping)
Physical Exam
Vital Signs
Temp Pulse Resp BP Pulse Ox
98.2 F 104 16 122/82 97
12/08/24 06:04 12/08/24 06:00 12/08/24 06:00 12/08/24 06:00 12/08/24 05:55
Lab Results
12/08/24 04:59
12/08/24 04:59
Troponin I < 0.012 ng/ml 12/08/24 04:59
Jvd-[id number]-Ahewiwrcsdp Pept 1200 pg/ml 12/07/24 18:45
GEN: Sleeping with BiPAP mask on, arousable with speaking
HEENT: supple, anicteric, mmm
LUNGS: Rhonchorous breath sounds
CV: Irregular, irregular, no murmur
ABD: soft, BS+, NT/ND
EXT: 1+ bilateral lower extremity edema with venous stasis skin changes, erythema, scale like blistering appearance of lower extremities below kneeNo edema
NEURO: Gross non-focal
SKIN: As above
Impression / Plan
-
PCP: Dr. Lake
Card: Dr. Eitan Bullock
Impression:
Admitted with acute HFpEF
Multiple previous admissions for acute heart failure preserved EF, August 2024, July 2024, July 2024
Recent admission for ureteral stone and acute HF 08/11/24 until 08/18/24
Permanent atrial fibrillation
Acute HFpEF
Persistent Afib
8% burden on monitor 12/2023 and now persistent Afib since at least 07/01/24
Chronic Eliquis OAC, currently off due to vaginal bleeding and hematuria
CROW/OHS on nocturnal CPAP with 2 L NC as an outpatient
ILD
DM 2
Severe morbid obesity, BMI 50.3
Mild to moderate aortic stenosis
Hypertension
Hypercholesterolemia
Venous insufficiency
Depression
Multiple medical allergies
Echo 07/04/2024: hyperdynamic left ventricular systolic function ejection fraction 65 to 70%. Moderate aortic stenosis with peak and mean gradients of 40 and 21 with a calculated aortic valve area of 1 cm2. Trivial pericardial effusion and no
significant valvular disease overall unchanged from prior echocardiogram
Plan:
-presented to ED 12/08/2024 with increased SOB and lethargy, found to be in acute on chronic heart failure preserved EF, cardiology consulted. Chest x-ray with moderate pulmonary edema, proBNP 1200, troponin undetectable, renal function within
normal limits.
1. Acute on chronic heart failure preserved EF
-Chest x-ray with pulmonary edema
-on BiPAP
-Agree with IV diuresis, continue Lasix 80 mg twice daily
-Previously started on losartan 25 mg daily and Toprol 25 mg daily during last heart failure admission 09/2024. Was on these meds at outpatient cardiology follow-up visit but no longer on, unclear why.. Renal function is stable. Blood pressures
acceptable, given elevated heart rates would consider restarting Toprol. Patient also previously on spironolactone.
-Consider resuming spironolactone and losartan if renal function remains stable with IV diuresis
- Not started on SGLT2 inhibitors due to UTI
- Daily weights
-I/O
2. Permanent atrial fibrillation
-EKG personally reviewed, atrial fibrillation, RVR 110 bpm
-telem: afib 90-110s
-Currently on diltiazem 240 mg 3 times daily for rate control, this is her outpatient dose.
-Eliquis stopped 09/2024 due to vaginal bleeding and hematuria. Hbg 10.3
-Would restart Toprol for heart failure and rate control.
-Patient not felt to be a candidate for rhythm control, unlikely to maintain SR due to comorbidities (obesity, CROW/OHS, HTN and DM2). Will focus on rate control. Patient is not a great candidate for amiodarone given ILD
Data Reviewed
-
EKG: Tracing Personally Visualized and interpreted
Labs: Labs Reviewed by me
[2024-12-08] MEDS: PULMICORT 0.25 MG INH ×2 (07:30→20:25)
[2024-12-08] MEDS: VENTOLIN NEBULES 2.5 MG INH ×2 (07:31→20:25)
[2024-12-08 07:40] LABS: Glycohemoglobin (HgbA1c) 6.8 % (4.0-5.6)
[2024-12-08 08:32] LABS: Glucose - Point of Care 110 mg/dl (70-99)
[2024-12-08] MEDS: NOVOLOG FLEXPEN-LOW RESISTANCE SC ×2 (08:59→16:58)
[2024-12-08] MEDS: CARDIZEM CD 240 MG PO ×3 (09:01→21:05)
[2024-12-08] MEDS: ASPIR LOW (ENTERIC COATED) 81 MG PO (09:01)
[2024-12-08] MEDS: SENSIPAR 30 MG PO (09:02)
[2024-12-08] MEDS: ZYRTEC 10 MG PO (09:03)
[2024-12-08] MEDS: LASIX 80 MG IV ×2 (09:03→16:57)
[2024-12-08] MEDS: LOVENOX 40 MG SC ×2 (09:04→20:10)
--- NOTE | 2024-12-08 09:06 | W.PN.UPDATE ---
Update Note
Progress Note Update
Nonbillable note
CT chest August 22
Questionable 5 mm nodule versus subpleural atelectasis/scarring within the posterior right lower lobe (image 8, series 201). 6 mm pleural-based nodule within the left lower lobe (image 21)
TTE 07/04/24
Normal left ventricular wall thickness.
Hyperdynamic left ventricular systolic function.
65-70% by visual assessment.
Normal right ventricular size and function.
Trace mitral regurgitation.
Moderate aortic stenosis.
Peak/mean gradients across the aortic valve are 40/21 mmHg.
Using an LVOT diameter of 1.8 cm.
Mild tricuspid regurgitation.
Trivial pericardial effusion.
No significant change compared to prior echocardiogram
Chest XR this admit
1. Moderate acute interstitial and alveolar cardiogenic pulmonary edema.
2. Moderate cardiomegaly.
3. Small right pleural effusion.
4. Mild subsegmental atelectasis in the perihilar right mid lung.
5. Severe calcification in the aortic valve.
6. Severe calcific atherosclerotic plaque in the coronary arteries.
Diastolic heart failure exacerbation -chest x-ray reviewed and showing alveolar cardiogenic pulmonary edema/effusion, maintain on IV Lasix 80 mg twice daily. Weight close to baseline. Follow weight and creatinine. Cardiology help appreciated.
Hypercapnic respiratory failure/metabolic encephalopathy-patient reported to be minimally responsive to noxious stimuli in the ER. Initial ABG showing PCO2 of 79 and pH of 7.24. pCO2 was not significantly elevated from previous ABG in the chart.
Patient does have chronic metabolic compensatory alkalosis. Provide BiPAP trial. Pulmonology consulted for further help.
Chronic cough -pronounced in the morning has been ongoing for many months. Previous pulmonology note question could patient have ILD based on imaging of CT chest on May 19. Patient follows up with Dr. Castaneda in office.
--- NOTE | 2024-12-08 09:17 | CON.PUL ---
Addendum entered and electronically signed by Roberto Castillo MD 12/09/24 00:07:
Patient was seen and evaluated on 12/08/2024
Original Note:
Consultation
Consultation Request
Date/Time Consultation Requested: 12/08/2024858
Date/Time Consultation Performed: 12/08/2024 - 911
Requesting Provider: Dr. Cabrera
Performing Provider: Dr. Castillo
Reason for Consultation: Acute respiratory failure with hypoxia/hypercapnia
Medical History
-
Chief Complaint: SOB
History of Present Illness:
79-year-old F with PMHx of severe persistent asthma, CROW on CPAP bled with 3L/min, morbid obesity, chronic hypoxic respiratory failure (2-3L/min ATC), HTN, hypothyroidism, DM type II, Hx of right-sided UPJ stone s/p ureteral stent placement
(08/12/2024) c/b pyelonephritis with sepsis, chronic HFpEF, moderate aortic stenosis, psoriasis, glaucoma, and A-fib not on AC due to vaginal bleeding/hematuria who p/w worsening SOB. Patient's daughter called 911 due to worsening SOB for few days.
She was found to be minimally responsive. Initial serum HCO3 32, pCO2 79 with pH 7.32. ProBNP 1200. Initially afebrile, CT 90, BP 108/84, and SpO2 92% on 4L/min. Due to her blood gas, she placed onto BiPAP. CXR showed moderate acute interstitial
and alveolar cardiogenic pulmonary edema. CT head showed no acute intracranial pathology. Given 1mg IV bumex, and admitted to IMU with Pulmonary service consulted for additional management/recommendations.
When I saw the pt, she was resting in bed, lethargic, at bedside. HR 90, BP 113/48 and saturating 94% on 4L/min. She was awakening to verbal stimuli, but then would quickly fall back asleep.
Of note, pt follows with us in [facility] office with Dr. Castaneda - last office visit on 03/09/2024. She is Rx CPAP for severe CROW. Per the patient, her CPAP is bled with 3L/min supplemental O2. She has endorsed SOB that's been ongoing for >20 years -
she is Rx budesonide BID with DuoNebs to be used as needed, and also Rx Breo. Regarding her weight, she has tried Ozempic but did not tolerate. She was supposed to see Dr. Castaneda again in May-Jul 2024, but this never happened. She has been
hospitalized multiple times at for acute decompensated heart failure (Jul and ), and hospitalized in July 2024 due to pyelonephritis from an obstructing right-sided renal stone.
PMHx: Ovarian dermoid, asthma, ILD, RCOW on CPAP, HTN, hypothyroidism, psoriasis, HLD, diverticulosis, IBS, glaucoma, DM type II, ulcerative colitis, rosacea, fibrocystic breast, RLL cellulitis, A-fib not on AC due to vaginal bleeding/hematuria
PSHx: D&C, hysteroscopy, herniated disc surgery, kidney stone removal
Past Medical History
Past Medical History: Other (Above as per HPI)
Past Surgical History: Other (Above as per HPI)
Social History
Tobacco: Former Smoker
Alcohol: None
Drug: None
Personal:
Living: With Family (=Reed)
Family History
Family History: CAD (Father + mother), Cancer (Mother: NHL; paternal and maternal aunt: breast cancer; sister: hepatic cancer) and Other (Father: Hx of PE; Paternal and maternal grandfather: Hx of CVA; daughter: exercise-induced asthma)
Allergies / Home Medications
Allergies
Allergy/AdvReac Type Severity Reaction Status Date / Time
strawberry Allergy Unknown Unknown Verified 09/30/24 13:21
alendronate sodium (From Allergy esophagus Verified 09/26/24 15:14
Fosamax) spasms
cephalexin (From Keflex) Allergy throat Verified 09/26/24 15:14
closed
clarithromycin (From Biaxin) Allergy Hives Verified 09/26/24 15:14
erythromycin base Allergy Rash, Verified 09/26/24 15:14
diarrhea
fentanyl Allergy difficulty Verified 09/26/24 15:14
awakening
from
surgery
fish oil Allergy Unknown Verified 09/26/24 15:14
house dust Allergy sneeze Verified 09/26/24 15:14
hyoscyamine Allergy throat Verified 09/26/24 15:14
tightening
influenza virus vaccine, Allergy Unknown Verified 09/26/24 15:14
specific
Iodinated Contrast Media Allergy Unknown Verified 09/26/24 15:14
latex Allergy Rash Verified 09/26/24 15:14
levalbuterol (From Xopenex) Allergy 'bee sting Verified 09/26/24 15:14
sensation
all over'
levofloxacin (From Levaquin) Allergy difficulty Verified 09/26/24 15:14
breathing
mold Allergy rash/hives/ Verified 09/26/24 15:14
sob
Penicillins Allergy Hives Verified 09/26/24 15:14
pneumococcal vaccine Allergy Rash Verified 09/26/24 15:14
shellfish derived Allergy hives/difficulty Verified 09/26/24 15:14
breathing
tetanus and diphtheria Allergy wheezing Verified 09/26/24 15:14
toxoids
vancomycin Allergy Shortness Verified 09/26/24 15:14
of Breath
Home Medications
�Medication �Instructions �Recorded �Confirmed �Last Taken �Type
budesonide 0.5 mg/2 mL suspension 0.5 mg inhalation R DAILY 07/01/24 12/07/24 08/10/24 History
for nebulization Lung/Breathing Issues
sodium chloride 0.65 % nasal spray 1 spray intranasal TIDPRN PRN 07/01/24 12/07/24 Unknown History
aerosol dryness
atorvastatin 10 mg tablet 10 mg PO QPM High cholesterol 30 07/14/24 12/07/24 08/10/24 Rx
days #30 tabs
cetirizine 10 mg tablet 10 mg PO DAILY Allergies #0 tabs 0212/07/24 08/10/24 Rx
cyanocobalamin (vitamin B-12) 1,000 mcg PO DAILY Supplement #0 07/14/24 12/07/24 08/10/24 Rx
1,000 mcg tablet (Vitamin B-12) tabs
diltiazem HCl 240 mg 240 mg PO TID Arrhythmia #0 caps 07/14/24 12/07/24 08/11/24 Rx
capsule,extended release 24 hr
mesalamine 1.2 gram tablet,delayed 2.4 g (2 x 1.2 gram) PO DAILY 07/14/24 12/07/24 08/10/24 Rx
release Gastrointestinal issue #0 tabs
montelukast 10 mg tablet 10 mg PO QPM Allergies #0 tabs 07/14/24 12/07/24 08/10/24 Rx
acetaminophen 650 mg 650 mg PO DAILYPRN PRN mild pain 08/11/24 12/07/24 08/08/24 History
tablet,extended release
docusate sodium 100 mg capsule 100 mg PO DAILYPRN PRN constipation 08/11/24 12/07/24 Unknown History
methylcellulose (laxative) 500 mg 250 mg PO HSPRN PRN fiber 08/11/24 12/07/24 08/10/24 History
tablet (Citrucel) suppliment
travoprost 0.004 % eye drops 1 drp BOTH EYES HS Eye Condition 08/11/24 12/07/24 08/10/24 History
vitamin A and D 1 applic topical DAILY b/l buttock 08/11/24 12/07/24 08/10/24 History
sore
cinacalcet 30 mg tablet 30 mg PO DAILY #30 tabs 08/18/24 12/07/24 Unknown Rx
furosemide 80 mg tablet (Lasix) 80 mg PO BID AT 0800,1600 Heart 10/04/24 12/07/24 Unknown Rx
Failure #60 tabs
ascorbic acid (vitamin C) 100 mg 100 mg PO DAILY 12/07/24 12/07/24 Unknown History
tablet
aspirin 81 mg tablet 81 mg PO DAILY 12/07/24 12/07/24 Unknown History
empagliflozin 12.5 mg-metformin ER 1 tab PO DAILY 12/07/24 12/07/24 Unknown History
1,000 mg tablet,extended rel 24 hr
(Synjardy XR)
iron bisglycinate chelate 25 mg PO DAILY 12/07/24 12/07/24 Unknown History
Review of Systems
-
Unable to Obtain full review of systems at this time due to: Acuity
Vitals / Labs / Diagnostic Testing
Vital Signs
Temp Pulse Resp BP Pulse Ox
98.6 F 111 20 107/89 94
12/08/24 07:43 12/08/24 09:03 12/08/24 08:15 12/08/24 09:03 12/08/24 08:15
Lab Data
12/08/24 04:59
12/08/24 04:59
Laboratory Results
12/08/24
00:31
pH 7.32 L
pCO2 79 H*
pO2 125 H
HCO3 40.7 H*
O2 Delivery Level
Diagnostic Testing:
Physical Exam
-
HEENT: Normocephalic, Anicteric and Other (thick neck)
Cardiovascular: S1/S2 and Peripheral Edema (+1 LE pitting edema bilaterally)
Respiratory: Wheeze (negative), Rales (bilateral), Rhonchi (negative) and Non-Labored Respirations
GI: Soft, Distended (abdominal obesity), Non Tender and Normal Bowel Sounds
Neurology: Tremors (negative) and Other (Lethargic; awakens to answer questions, then falls back asleep)
Skin: Warm and Dry
General: Respiratory Distress (negative), Comfortable, Fever (negative) and Chills (negative)
Assessment
-
Assessment: 79-year-old F with PMHx of severe persistent asthma, CROW on CPAP bled with 3L/min, morbid obesity, chronic hypoxic respiratory failure (2-3L/min ATC), HTN, hypothyroidism, DM type II, Hx of right-sided UPJ stone s/p ureteral stent
placement (08/12/2024) c/b pyelonephritis with sepsis, chronic HFpEF, moderate aortic stenosis, psoriasis, glaucoma, and A-fib not on AC due to vaginal bleeding/hematuria who p/w worsening SOB. Patient's daughter called 911 due to worsening SOB for
few days. She was found to be minimally responsive. Initial serum HCO3 32, pCO2 79 with pH 7.32. ProBNP 1200. Initially afebrile, CT 90, BP 108/84, and SpO2 92% on 4L/min. Due to her blood gas, she placed onto BiPAP. CXR showed moderate acute
interstitial and alveolar cardiogenic pulmonary edema. CT head showed no acute intracranial pathology. Given 1mg IV bumex, and admitted to IMU with Pulmonary service consulted for additional management/recommendations.
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
bleeding/hematuria
Impression:
#Acute on chronic respiratory failure with hypoxia + hypercapnia requiring BiPAP
#Acute decompensated heart failure/acute on chronic HFpEF
#A-fib with RVR - now rate controlled
#Significant morbid obesity (BMI: 48.8)
#Severe CROW (AHI 86 with ben SpO2 67% via HSAT in 01/2018) on CPAP
#Obesity hypoventilation syndrome
#Metabolic alkalosis due to chronic hypercapnic respiratory failure
#DM type II (HbA1c: 6.8 on 12/08/2024)
#History of vaginal bleeding + hematuria exacerbated by Eliquis use (now off Eliquis)
#Severe persistent asthma - on budesonide + DuoNebs + Breo as outpatient
#HTN
#Valvular heart disease with moderate
#Chronic venous stasis dermatitis with chronic lymphedema
#Hx of right-sided UPJ stone s/p ureteral stent placement (08/12/2024) c/b pyelonephritis with sepsis
#Hx of mosaic attenuation with significant bronchial wall thickening likely due to small airway disease with bronchiolitis (seen on CT chest 05/06/2020)
#Hx of moderate restrictive lung disease (T% predicted, VC: 61% predicted, post-BD FVC: 1.45L / 58% predicted via PFT from 02/10/2024)
#Severe asthma with COPD (severe persistent obstructive lung defect with normalization of moderate gas exchange capacity defect when accounting for alveolar volume - PFT 02/10/2024)
Plan:
- Agree with treating with BiPAP until pH + pCO2 remained stable
- Acute respiratory failure is due to acute decompensated heart failure with acute pulmonary/interstitial edema in the setting of rapid A-fib, and morbid obesity with hypoventilation syndrome
- proBNP: 1200 on 12/07/2024
- Continue with diuresis � currently on Lasix 80 mg IV BID
- Replete electrolytes with K>4, Mg>2, lewis while being diuresed
- Trend sCr, UOP with strict I/O and daily weight
- Cardiology consulted - recs appreciated
- Most recent echo on 07/04/2024 showed preserved biventricular function with LVEF: 65-70%, with moderate aortic stenosis with peak/mean gradients 40/21 mmHg, with mild TR and a trivial pericardial effusion --> consider repeating echo if she does not
improve despite diuresis
- Continue with BiPAP while closely monitoring hypercapnia with serial blood gases to assure pH + pCO2 remain stable
- Currently being transitioned back to BiPAP 13/01 bled with 4 L/min
- Recheck blood gas later tonight to assure pH + pCO2 are not worsening as she remains lethargic, although she does awaken to answer my questions before falling back asleep
- Low threshold to transfer to ICU if she becomes unresponsive, in which case she would need to be intubated
- Maintain SpO2 >90-94% with supplemental O2, weaning down as tolerated
- Continue budesonide with prn DuoNebs; given her initial rapid A-fib, hold off on beta-agonist for now; can add on DuoNebs in 1-2 days if HR remains stable
- prn nebulized bronchodilators - not currently bronchospastic
- She is not currently wheezing and is on minimal supplemental O2 that is close to her baseline - continue diuresis and hold off on systemic steroids; if O2 requirements worsen despite being diuresed then would start systemic steroids at that time
- Of note, in 2019 she had followed with Rheumatology with suspicion for vasculitis/GPA vs Sjogren's. 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
- Trend H/H and transfuse if needed to keep Hb>7-8g/dL; keep plt>50k due to mild hematuria
- Of note, per nurse, patient does have a small amount of blood in her urine; continue to monitor
- Maintain euglycemia with goal BG >100 and <180
- DVT ppx: LMWH
Code status: Full code
I discussed the patient's clinical status with her , Reed, and answered all of his questions.
Pulmonary service will continue to follow along. She should follow up with our office after discharge with Dr. Castaneda - last office visit on 03/09/2024.
Data:
CXR 12/07/2024:
1. Moderate acute interstitial and alveolar cardiogenic pulmonary edema.
2. Moderate cardiomegaly.
3. Small right pleural effusion.
4. Mild subsegmental atelectasis in the perihilar right mid lung.
5. Severe calcification in the aortic valve.
6. Severe calcific atherosclerotic plaque in the coronary arteries.
Total time spent today was 58 minutes for this encounter. Time includes reviewing laboratory test/imaging results, reviewing pertinent medical records, obtaining and reviewing medical history, performing an appropriate exam, ordering medications,
tests and procedures. Time also includes documentation of this encounter, coordinating patient care and communicating with other healthcare professionals. Total time does not include separately billed tests performed on this date of service.
[2024-12-08 09:56] LABS: Venous Blood Gas B.E. 13.6 mmol/L (-4 to +4); Venous Blood Gas O2 Sat % 99.4 %
[2024-12-08 10:34] LABS: Troponin I < 0.012 ng/ml
[2024-12-08] MEDS: TYLENOL 650 MG PO ×2 (11:22→20:09)
[2024-12-08] MEDS: TOPROL XL 25 MG PO (11:52)
[2024-12-08 12:35] LABS: Glucose - Point of Care 154 mg/dl (70-99)
[2024-12-08] MEDS: NOVOLOG FLEXPEN-LOW RESISTANCE 1 UNITS SC (13:45)
--- NOTE | 2024-12-08 13:49 | PTCARENOTE ---
Patient out of bed to chair, had a visit from . Patient participated in Physical therapy, sat on commode. Patient ate majority of breakfast. Heart rate was elevated afib 110-120 this morning, unchanged after Cardizem oral dose. Discussed with
cardiology and beta mirian added. Heart rate is now afib in the 80s. Patient stating that she 'hasnt slept om days', objectively fatigues. Patient is now sleeping in chair with bipap applied.
--- NOTE | 2024-12-08 15:15 | WOUNDNOTE ---
WON RN note: Patient admitted with CHF and COPD.
See H&P for complete history. Lives with daughter Iesha.
PMH: Obesity, Lymphedema, tingling arms and legs, A Fib, HTN, RF, stress incontinence, venous leg ulcers.
Wound Location and type/assessment: Patient known to service, last seen 07/03/24. Admitted with: Lymphedema and chronic redness/hemosiderin staining of both legs. Currently patient using Bipap and difficult to communicate, arousable but easily falls
back to sleep. Uses CeraVe own moisturizer and Tubigrip in past for compression. Heels are intact, sitting in recliner chair with legs elevated. Nurse Saenz reports sacrum is intact.
Appetite: Good.
Pressure redistribution devices in place: Centrella air, if transferred consider bariatric bed.
Plan: Moisturize legs with patient's CeraVe if available. Applied Surgigrip size F to both legs knee high, can be removed at hs. Nurse Saenz updated on the above.
Will confirm orders with hospitalist. Updated care plan and will follow as needed.
Note to case management of equipment requested for discharge: None
--- NOTE | 2024-12-08 16:29 | W.PN.UPDATE ---
Update Note
Progress Note Update
earlier today rec'd TT from pt's PCP Dr Lake that she had been on synjardy (empaglifloxin-metformin) for past 6-8wks and tolerated. Could consider adding SGLT2-I for HF
[2024-12-08 16:50] LABS: Urine Character Slightly Cloudy (Clear)
[2024-12-08] MEDS: LIPITOR 10 MG PO (16:58)
[2024-12-08] MEDS: SINGULAIR 10 MG PO (16:58)
[2024-12-08 17:01] LABS: Glucose - Point of Care 107 mg/dl (70-99)
[2024-12-08 17:06] LABS: Urine Red Blood Cell 50-60 /HPF (0-2); Urine Squamous Cell >30 /LPF (Few); Urine White Cell >100 /HPF (0-5)
--- NOTE | 2024-12-08 17:22 | CM ---
Patient with Dx HF. O2 2L. Receiving IV Lasix. PT recommends HH. Seen by wound care nurse.
Spoke with patient's Alphonso, here visiting;
the patient resides with her in a one story home with no steps and ramp access.
She needs assistance with all ADLs and is essentially w/c bound at home.
The is her sole caregiver- they had Daughterly COmpanions and patient/ decided they no longer wanted a caregiver due to the inconsistency of caregivers coming to help. The daughter Iesha lives nearby and there is also a son Chilo in [place].
DME - RW, w/c, scooter, transport chair, CPAP, nebulizer, home o2 concentrator and portable tanks
Current with [facility] for SN/PT
No prior SNF
PCP - Herb Lake
Pharmacy - [facility]
says patient is more mentally clear today. He wants to take her home at d/c with resumption of [facility]. Alphonso says patient normally needs w/c van transport home arranged.
Plan home with resumption [facility].
--- NOTE | 2024-12-08 18:31 | PTCARENOTE ---
Small blood clot observed in urine. Urinalysis sent. Notified Dr. Cabrera.
--- NOTE | 2024-12-08 19:00 | PTCARENOTE ---
At change of shift nurses entered room and found husbands hands actively removing patient bipap mask and giving patient water. Both RNs educated patient and about safety and hospital policies regarding handling of medical equipment.
nodded and patient verbalized frustration with mask.
--- NOTE | 2024-12-08 20:10 | PTCARENOTE ---
Report received from dayshift RN. this RN assumed care of Pt. received Pt wearing 3L 02 , agreeable to wearing bipap hs, c/o her mouth being 'too dry' at this time', this interaction reported to RT Nuzhat. Pt educated on the use, necessity, and
purpose of the bipap mask in their plan of care at this time. HS oral care provided. Assessment as documented. call light in reach.
[2024-12-08 20:50] LABS: B.E. 15.4 mmol/L; O2 Saturation % 93.3 % (94-98); PO2 64 mmHg (83-108)
[2024-12-08 20:52] LABS: HCO3 44.2 mmol/L (21-28); PCO2 82 mmHg (32-35)
[2024-12-08] MEDS: XALATAN OPHTHALMIC SOLUTION 1 DROP BOTH EYES (21:07)
[2024-12-08 21:10] LABS: Glucose - Point of Care 161 mg/dl (70-99)
--- NOTE | 2024-12-08 21:30 | PTCARENOTE ---
Critical CO2 of 82 & CO3 44.2 received. lab reported to RT Nuzhat and CECIL Mauro. Pt currently awake wearing 3L 02, oriented x3, BP 118/85(95), HR 85, sats 92%, RR 28. Pt declining to wear bipap at this time, agreeing to wear mask while she sleeps.
Pt educated and necessity of the intervention ordered explained thoroughly to Pt.
[2024-12-09] VITALS (19 sets, daily range): BP systolic 92–132; BP diastolic 61–101; PULSE 2–98
[2024-12-09 04:19] LABS: Venous Blood Gas B.E. 15.6 mmol/L (-4 to +4); Venous Blood Gas O2 Sat % 99.2 %
[2024-12-09] MEDS: VENTOLIN NEBULES 2.5 MG INH ×2 (07:16→20:07)
[2024-12-09] MEDS: PULMICORT 0.25 MG INH ×2 (07:16→20:07)
[2024-12-09 07:50] LABS: Glucose - Point of Care 128 mg/dl (70-99)
[2024-12-09] MEDS: NOVOLOG FLEXPEN-LOW RESISTANCE SC (07:56)
[2024-12-09] MEDS: CARDIZEM CD 240 MG PO (07:57)
[2024-12-09] MEDS: TYLENOL 650 MG PO ×2 (07:58→17:15)
[2024-12-09] MEDS: ASPIR LOW (ENTERIC COATED) 81 MG PO (07:58)
[2024-12-09] MEDS: SENSIPAR 30 MG PO (07:58)
[2024-12-09] MEDS: TOPROL XL 25 MG PO ×2 (07:59→19:28)
[2024-12-09] MEDS: LASIX 80 MG IV ×2 (07:59→17:13)
[2024-12-09] MEDS: ZYRTEC 10 MG PO (07:59)
[2024-12-09] MEDS: LOVENOX 40 MG SC ×2 (08:00→19:28)
[2024-12-09 09:50] LABS: Hematocrit 36.7 % (37.0-47.0); Hemoglobin 10.3 g/dL (12.0-16.0); Mean Corp Hgb Conc. 28.1 g/dL (33.0-37.0); Mean Corpuscular Volume 83.0 fL (81.0-99.0); Platelet Count 284 10^3/uL (130-400); Red Cell Dist. Width 18.7 % (11.5-14.5)
[2024-12-09 09:56] LABS: Urine Character Clear (Clear)
[2024-12-09 09:56] LABS: Blood Urea Nitrogen 22 mg/dl (7-17); Calcium 8.9 mg/dl (8.4-10.2); Chloride 92 mmol/L (98-107); Estimated Creatinine Clearance 57 ml/min; Glucose 219 mg/dl (70-99); Potassium 3.4 mmol/L (3.5-5.1); Sodium 140 mmol/L (135-145); eGFR 57.66
[2024-12-09 10:08] LABS: Carbon Dioxide 35 mmol/L (22-30)
--- NOTE | 2024-12-09 10:58 | PTCARENOTE ---
Patient pulse ox 93% on 4 liters at this time. Patient the 100% of breakfast. Periods of anxiety with ADLs. Patient stated that she 'doesnt want to regress'. Patient encouraged to do as much as she can herself with supervision and set up. Patient
complaining of right knee pain today, Tylenol given and ice applied- notified Dr. Cabrera.
[2024-12-09] MEDS: MIRALAX 17 GRAMS PO (11:34)
--- NOTE | 2024-12-09 11:56 | W.PN.CARDCBS ---
Today's Communication / Plan
-
Decrease diltiazem
Increase metoprolol
Continue IV Lasix
Add spironolactone
Urology consult for hematuria in hopes of restarting Eliquis
Impression / Plan
-
PCP: Dr. Lake
Card: Dr. Eitan Bullock
Impression:
Admitted with acute HFpEF
Multiple previous admissions for acute heart failure preserved EF, August 2024, July 2024, July 2024
Recent admission for ureteral stone and acute HF 08/11/24 until 08/18/24
Permanent atrial fibrillation
Acute HFpEF
Persistent Afib
8% burden on monitor 12/2023 and now persistent Afib since at least 07/01/24
Chronic Eliquis OAC, currently off due to vaginal bleeding and hematuria
CROW/OHS on nocturnal CPAP with 2 L NC as an outpatient
ILD
DM 2
Severe morbid obesity, BMI 50.3
Mild to moderate aortic stenosis
Hypertension
Hypercholesterolemia
Venous insufficiency
Depression
Multiple medical allergies
Echo 07/04/2024: hyperdynamic left ventricular systolic function ejection fraction 65 to 70%. Moderate aortic stenosis with peak and mean gradients of 40 and 21 with a calculated aortic valve area of 1 cm2. Trivial pericardial effusion and no
significant valvular disease overall unchanged from prior echocardiogram
Plan:
With regards to atrial fibrillation, her rate is now better controlled. Metoprolol has been added. Will uptitrate this and de-escalate diltiazem. Digoxin/amiodarone could be considered, though potential toxicities with both, particularly if
history of interstitial lung disease
Will continue furosemide 80 mg IV twice daily. Volume status is improved but still significantly volume overloaded
.
Eliquis has been stopped because of hematuria and she has not had a urologic evaluation. She is exposed to stroke risk at present.
Recommend urologic consultation in hospital, she may have a bladder infection at present based on her urinalysis.
Based on UTI would not start/resume Jardiance at this time.
Add spironolactone for heart failure.
Could be considered for watchman if she is permanently felt to be at unacceptable bleeding risk.
Progress Note - Senior Tax Accountant
Subjective
Date of Service: December 09, 2024:
79-year-old woman admitted with acute on chronic HFpEF with marked shortness of breath and lethargy.
PMH: Chronic HFpEF, persistent/permanent atrial fibrillation, obstructive sleep apnea, type 2 diabetes, obesity, hypertension, hyperlipidemia, mild to moderate aortic stenosis, chronic venous insufficiency, last admitted in September 2024 with discharge
weight 262 pounds, history of UTIs, vaginal bleeding
Current medications: Aspirin 81 mg a day, atorvastatin 10 mg a day, Pulmicort, Zyrtec, Sensipar, diltiazem ER 240 mg 3 times daily, Singulair, Xalatan, furosemide 80 mg IV twice daily, insulin, enoxaparin 40 SQ every 12, metoprolol ER 25 mg a day,
MiraLAX
Allergies: Eliquis stopped for vaginal bleeding/hematuria
113/74, pulse 85, respiratory rate 15, afebrile, sats 94, intake and output -1.5 L, weight is pending, complains of feeling washed out, diminished breath sounds in bases, heart rate now better controlled,Soft systolic murmur difficult to hear, neck
veins hard to assess, 1+ to 2+ edema
Hemoglobin is 10.3, stable potassium is 3.4, BUN and creatinine are 22 and 1.0, UA with moderate bacteria and greater than 100 white cells white cells and bacteria in urine
Telemetry: Rate control is good
Objective
Labs:
12/09/24 09:24
12/09/24 09:24
Labs
Hgb 10.3 g/dL (12.0-16.0) L 12/09/24 09:24
Hct 36.7 % (37.0-47.0) L 12/09/24 09:24
Plt Count 284 10^3/uL (130-400) 12/09/24 09:24
Sodium 140 mmol/L (135-145) 12/09/24 09:24
Potassium 3.4 mmol/L (3.5-5.1) L 12/09/24 09:24
BUN 22 mg/dl (7-17) H 12/09/24 09:24
Creatinine 1.0 mg/dL (0.6-1.0) 12/09/24 09:24
Glucose 219 mg/dl (70-99) H 12/09/24 09:24
Troponins
12/07/24 12/08/24 12/08/24
18:45 04:59 09:45
Troponin I < 0.012 < 0.012 < 0.012
12/08/24
16:51
Troponin I Cancelled
Vital Signs and I&O:
Vital Signs
Temp Pulse Resp BP Pulse Ox
36.9 C 85 15 113/74 94
12/09/24 07:59 12/09/24 10:45 12/09/24 10:45 12/09/24 10:00 12/09/24 09:49
Vital Signs
Temp Pulse Resp BP Pulse Ox
36.9 C 85 15 113/74 94
12/09/24 07:59 12/09/24 10:45 12/09/24 10:45 12/09/24 10:00 12/09/24 09:49
Intake & Output
12/07/24 12/08/24 12/09/24 12/10/24
07:59 07:59 07:59 07:59
Intake Total 360 / 360 120 / 120
Output Total 1680 / 1680 800 / 800
Balance -1320 / -1320 -680 / -680
Physical Exam
Physical Exam
See above
--- NOTE | 2024-12-09 12:10 | PTCARENOTE ---
Patient having anxiety today. Plan of care and diagnosis discussed with patient and , therapeutic communication provided.. Notified Dr. Cabrera of anxiety.
[2024-12-09 12:11] LABS: Glucose - Point of Care 188 mg/dl (70-99)
--- NOTE | 2024-12-09 12:13 | RESPNOTE ---
Called to see patient who was having SOB, bedside when entering. Offered nebulizer to patient who stated ' they do nothing for me, I dont want that. The problem is my nose is so crusted up.' Humidity placed on oxygen, saline sprayed ordered
by RN, water soulable lubricate offered to patient as well. Plan is to place on Bipap this afternoon for a nap. 93%-3 liters HR 75 RR 22-25. Patients states the way she is breathing has become her new normal.
[2024-12-09] MEDS: NOVOLOG FLEXPEN-LOW RESISTANCE 1 UNITS SC ×2 (12:32→17:14)
[2024-12-09] MEDS: DESENEX/MITRAZOL/ZEASORB 1 APPLIC TOPICAL (12:33)
--- NOTE | 2024-12-09 14:21 | PTCARENOTE ---
Patiet became drowsy this afternoon. Bipap placed by respiratory after eating lunch.
--- NOTE | 2024-12-09 14:32 | W.PN.HOSP.TC ---
Today's Communication/Plan
-
see note
Assessment / Plan
Assessment / Plan
Acute on Chronic HFpEF
Acute on Chronic Hypoxemic Respiratory Failure secondary to the above
- CXR shows pulmonary edema, BNP elevated from prior.
- Continue IV Lasix BID.
- Echo done in July with normal LVEF and moderate .
- Previously on low-dose spironolactone which has since been discontinued.
- Cardiology following and help appreciated
Acute metabolic encephalopathy
Suspected from hypercapnic respiratory failure
- ? secondary to hypercapnia - though this does not appear acute / changed from prior.
- CT head done in the ED without acute abnormality.
-Patient mentation was better yesterday, again patient noted to be somnolent today
Chronic Hypercapnic Respiratory Failure
Obesity Hypoventilation Syndrome
- ABG yesterday evening showing again elevated pCO2 level with low pH, VBG in the morning showed some improvement
- Patient is morbidly obese and component of CROW/OHS which makes patient very prone to have recurrence episode of hypercapnic respiratory failure
- Case discussed with pulmonology for potential evaluation of trilogy ventilator.
- Patient has some anxiety due to ongoing pulmonary issue, will need to avoid any sedative/narcotic as can decrease the respiratory drive further and will aggravate OHS
Asthma without Acute Exacerbation
- No evidence of wheezing on exam.
- Continue usual inhaled medications and follow for any changes.
Persistent Atrial Fibrillation
- Stable. Continue diltiazem.
- Patient no longer on Eliquis per current med list (held previously due to hematuria).
- Cardio discussed possible beta-mirian initiation, deferred decision to cards.
Anemia of Chronic Disease
- Stable. Hgb is at / near known baseline.
- Follow for any changes.
DM-II
- Stable. Hold PO medications.
- Follow glucose and cover with SSI as needed.
- A1C 6.8
Hypothyroidism
- Continue current T4 replacement.
Hyperparathyroidism
- Continue Cinacalcet.
Chronic Venous Stasis Dermatitis
- Local care / Wound Care eval to lower extremities.
DVT Prophylaxis: Lovenox
Code Status: Full
12/08 Discussed with Patient Daughter over the Phone. Patient Daughter Concerned about Patient Requiring Repeated Admission for Heart Failure or Hypercapnia Respiratory Failure. Unfortunately with Patient Moderate Patient Will Remain at Persistent
Risk of Episodes of OHS/CROW Related Hypercarbic Respiratory Failure. Weight Loss Is [place] Although Patient Does Not Have Much of Capacity to Do Activity. Patient Aware of Weight Loss Physicians in the Area and I have encouraged daughter to make
patient appointment to see weight loss specialist.
Complex medical care with persistent risk of further deterioration and related problems.
Appropriate for continued monitoring in IMU
Anticipated Discharge: > 48 hours
Subjective/Interval History
-
Date of Service: December 09, 2024
Patient again somnolent in the morning
manager shop VBG showing patient pCO2 is improved although remains elevated
Patient also continued to require oxygen support
Objective Data
-
Labs:
Laboratory Results
12/09/24
09:24
WBC 10.4
Hgb 10.3 L
Hct 36.7 L
Plt Count 284
Sodium 140
Potassium 3.4 L
Chloride 92 L
Carbon Dioxide 35 H
BUN 22 H
Creatinine 1.0
Glucose 219 H
Calcium 8.9
Vital Signs:
Vital Signs
Temp Pulse Resp BP Pulse Ox
97.6 F 83 18 97/81 91
12/09/24 11:59 12/09/24 12:45 12/09/24 12:45 12/09/24 12:00 12/09/24 14:21
I&O
12/08/24 12/09/24 12/10/24
06:59 06:59 06:59
Intake Total 360 / 360 120 / 120
Output Total 1680 / 1680 800 / 800
Balance -1320 / -1320 -680 / -680
Review of Systems
-
Unable to obtain full review of systems at this time due to: Acuity
Physical Exam
-
General: Comfortable and Morbidly Obese
HEENT: Oxygen
Respiratory: Clear to Auscultation
Cardiac: Regular Rhythm and S1/S2; Negative Murmur or Rub
GI: Soft, Nontender and Nondistended
Musculoskeletal: Edema, Right Lower Extrem and Edema, Left Lower Extrem
Neuro: Awake and Alert
Psych: Calm
--- NOTE | 2024-12-09 15:27 | W.PN.PUL3 ---
Today's Communication / Plan
-
Continue BiPAP
Case management to see if we can switch to BiPAP as patient feels BiPAP is better than CPAP
Consider neurology and psychiatry evaluation on Wednesday
Will try to call daughter to update
Assessment
-
Assessment: 79-year-old F with PMHx of severe persistent asthma, CROW on CPAP bled with 3L/min, morbid obesity, chronic hypoxic respiratory failure (2-3L/min ATC), HTN, hypothyroidism, DM type II, Hx of right-sided UPJ stone s/p ureteral stent
placement (08/12/2024) c/b pyelonephritis with sepsis, chronic HFpEF, moderate aortic stenosis, psoriasis, glaucoma, and A-fib not on AC due to vaginal bleeding/hematuria who p/w worsening SOB. Patient's daughter called 911 due to worsening SOB for
few days. She was found to be minimally responsive. Initial serum HCO3 32, pCO2 79 with pH 7.32. ProBNP 1200. Initially afebrile, CO 90, BP 108/84, and SpO2 92% on 4L/min. Due to her blood gas, she placed onto BiPAP. CXR showed moderate acute
interstitial and alveolar cardiogenic pulmonary edema. CT head showed no acute intracranial pathology. Given 1mg IV bumex, and admitted to IMU with Pulmonary service consulted for additional management/recommendations.
Chronic conditions [facility] HE[facility] NURSE: Ovarian dermoid, asthma, ILD, CROW on CPAP, HTN, hypothyroidism, psoriasis, HLD, diverticulosis, IBS, glaucoma, DM type II, ulcerative colitis, rosacea, fibrocystic breast, RLL cellulitis, A-fib not on AC due to vaginal
bleeding/hematuria
Impression:
#Acute on chronic respiratory failure with hypoxia + hypercapnia requiring BiPAP
#Acute decompensated heart failure/acute on chronic HFpEF
#A-fib with RVR - now rate controlled
#Significant morbid obesity (BMI: 48.8)
#Severe CROW (AHI 86 with ben SpO2 67% via HSAT in 01/2018) on CPAP
#Obesity hypoventilation syndrome
#Metabolic alkalosis due to chronic hypercapnic respiratory failure
#DM type II (HbA1c: 6.8 on 12/08/2024)
#History of vaginal bleeding + hematuria exacerbated by Eliquis use (now off Eliquis)
#Severe persistent asthma - on budesonide + DuoNebs + Breo as outpatient
#HTN
#Valvular heart disease with moderate
#Chronic venous stasis dermatitis with chronic lymphedema
#Hx of right-sided UPJ stone s/p ureteral stent placement (08/12/2024) c/b pyelonephritis with sepsis
#Hx of mosaic attenuation with significant bronchial wall thickening likely due to small airway disease with bronchiolitis (seen on CT chest 05/06/2020)
#Hx of moderate restrictive lung disease (T% predicted, VC: 61% predicted, post-BD FVC: 1.45L / 58% predicted via PFT from 02/10/2024)
#Severe asthma with COPD (severe persistent obstructive lung defect with normalization of moderate gas exchange capacity defect when accounting for alveolar volume - PFT 02/10/2024)
Plan/recommendations
Unfortunately, patient has not followed up in the sleep clinic as recommended in the past
She has complex sleep disorder with significant sleep apnea, likely obesity hypoventilation syndrome
She also has a history of asthma, however she is not convinced the nebulizer or inhaler helps
She is sedentary, unable to lose weight
Interestingly, she admits to improved symptoms when lying flat
She feels that the BiPAP with the current mask is better than her home CPAP
Main complaint with the system is dry mouth
She continues to be diuresed although I am not sure this is her main issue
Echocardiogram from July 2024 with normal biventricular function, moderate aortic stenosis, PA pressure 36
Cardiology following
Other etiologies to consider include neuromuscular disease
Patient also exhibiting significant anxiety, tearful throughout conversation
admits to possibility of anxiety, depression
Moving forward
Continue with BiPAP with current settings, fullface mask
Would consider psychiatry and neurology evaluation to rule out significant anxiety/depression component to help with sleep and/or neuromuscular disease
I do suspect that her primary issue is obesity hypoventilation, severe sleep apnea
We will consult case management and consider transition from CPAP to BiPAP as she feels better with BiPAP that her home CPAP machine
She may be eligible for a Trilogy vent, but we are not able to obtain this unless she is able to follow-up in our office, which she has not
Hypercarbia is compensated
Cannot get any sedation, narcotic therapy
For now we will continue with nebulized therapy
No indication for steroids
Of note, in 2019 she had followed with Rheumatology with suspicion for vasculitis/GPA vs Sjogren's. Had been started on prednisone at the time but this caused significant HTN, and she was rec'd by her devulcanizer loader to avoid steroids going forward.
DVT ppx: LMWH
Code status: Full code. However I did review the options for tracheotomy if she progresses, mechanical ventilation if she progresses. She adamantly says no as does her
I encouraged them to discuss this together and confirm CODE STATUS
Will try to contact daughter as states he does have 'memory issues'
Data:
CXR 12/07/2024:
1. Moderate acute interstitial and alveolar cardiogenic pulmonary edema.
2. Moderate cardiomegaly.
3. Small right pleural effusion.
4. Mild subsegmental atelectasis in the perihilar right mid lung.
5. Severe calcification in the aortic valve.
6. Severe calcific atherosclerotic plaque in the coronary arteries.
Total time spent today was 58 minutes for this encounter. Time includes reviewing laboratory test/imaging results, reviewing pertinent medical records, obtaining and reviewing medical history, performing an appropriate exam, ordering medications,
tests and procedures. Time also includes documentation of this encounter, coordinating patient care and communicating with other healthcare professionals. Total time does not include separately billed tests performed on this date of service.
Subjective Data
-
Date of Service:
Date of Service: December 09, 2024
Subjective:
Patient tearful at times. She felt she slept better over the last couple days more so than at home for the past 6 months. at bedside. She is tearful complaining of postnasal drip, poor taste. She also continues to discuss difficulty
coming to our office, does not like the smell in her office.
Objective Data
Data Reviewed
Vital Signs / I&O / Oxygen:
Vital Signs
Temp Pulse Resp BP Pulse Ox
97.6 F 83 18 97/81 91
12/09/24 11:59 12/09/24 12:45 12/09/24 12:45 12/09/24 12:00 12/09/24 14:21
Intake and Output
12/08/24 12/09/24 12/10/24
06:59 06:59 06:59
Intake Total 360 / 360 120 / 120
Output Total 1680 / 1680 800 / 800
Balance -1320 / -1320 -680 / -680
SaO2 91
Nasal Cannula flow liters per 4
minute
Physical Exam
General: Respiratory Distress (Mild use of accessory muscles)
HEENT: Normocephalic and Other (Large neck)
Cardiovascular: S1-S2, Regular Rhythm, Murmur (n), Rub (n) and Peripheral Edema (Chronic venous stasis changes)
Respiratory: Wheeze (n), Crackles (n), Rhonchi (n), Accessory Resp Muscle Use (Mild), Stridor (n) and Other (Poor inspiratory effort)
GI: Soft, Non Distended (Morbidly obese) and Non Tender
Neurology: Awake, Alert and No Motor Deficits (Generally weak, right knee pain making difficult for hip flexor)
Skin: Cyanosis (n) and Jaundice (n)
Labs/Micro/Reports
Lab Data
12/09/24 09:24
12/09/24 09:24
Laboratory Results
12/08/24
20:44
pH 7.34 L
pCO2 82 H*
pO2 64 L
HCO3 44.2 H*
O2 Delivery Level
[2024-12-09] MEDS: ALDACTONE 25 MG PO (17:10)
[2024-12-09 17:13] LABS: Glucose - Point of Care 170 mg/dl (70-99)
[2024-12-09] MEDS: LIPITOR 10 MG PO (17:53)
[2024-12-09] MEDS: OCEAN, SALINE MIST 1 SPRAYS NASAL (17:53)
[2024-12-09] MEDS: SINGULAIR 10 MG PO (17:53)
--- NOTE | 2024-12-09 18:00 | PTCARENOTE ---
Patient drowsy at times, anxious. Discussed with Dr. Cabrera. Bedrest today due to safety concerns. Patient has been turned every 2 hours and in chair position in bed several times.
[2024-12-09 21:19] LABS: Glucose - Point of Care 197 mg/dl (70-99)
--- NOTE | 2024-12-09 22:25 | PTCARENOTE ---
Pt c/o tiredness tonight. requesting to go to sleep and be placed on bipap for the night. pt placed on mask by RT. c/o right knee pain, Tylenol admin per order see MAR and ice provided to right knee. FR 1440 maintained. HR 80-90 bpm. satting 90%.
[2024-12-09] MEDS: CARDIZEM CD PO (22:34)
[2024-12-09] MEDS: XALATAN OPHTHALMIC SOLUTION 1 DROP BOTH EYES (22:56)
[2024-12-09] MEDS: OCEAN, SALINE MIST NASAL (23:22)
[2024-12-10] VITALS (16 sets, daily range): BP systolic 116–140; BP diastolic 75–110; PULSE 2–108
[2024-12-10 04:09] LABS: Blood Urea Nitrogen 22 mg/dl (7-17); Calcium 8.8 mg/dl (8.4-10.2); Carbon Dioxide 39 mmol/L (22-30); Chloride 95 mmol/L (98-107); Estimated Creatinine Clearance 72 ml/min; Glucose 133 mg/dl (70-99); Potassium 3.8 mmol/L (3.5-5.1); Sodium 139 mmol/L (135-145); eGFR > 60.00
[2024-12-10] MEDS: PULMICORT 0.25 MG INH ×2 (06:03→18:54)
[2024-12-10 07:12] LABS: Hematocrit 35.6 % (37.0-47.0); Hemoglobin 10.0 g/dL (12.0-16.0); Mean Corp Hgb Conc. 28.1 g/dL (33.0-37.0); Mean Corpuscular Volume 82.2 fL (81.0-99.0); Platelet Count 252 10^3/uL (130-400); Red Cell Dist. Width 18.7 % (11.5-14.5)
[2024-12-10] MEDS: NOVOLOG FLEXPEN-LOW RESISTANCE SC (08:12)
[2024-12-10 08:20] LABS: Glucose - Point of Care 133 mg/dl (70-99)
[2024-12-10] MEDS: ALDACTONE 25 MG PO (08:21)
[2024-12-10] MEDS: ZYRTEC 10 MG PO (08:21)
[2024-12-10] MEDS: SENSIPAR 30 MG PO (08:22)
[2024-12-10] MEDS: TOPROL XL 25 MG PO ×2 (08:22→20:24)
[2024-12-10] MEDS: ASPIR LOW (ENTERIC COATED) 81 MG PO (08:22)
[2024-12-10] MEDS: CARDIZEM CD 180 MG PO ×2 (08:22→20:24)
[2024-12-10] MEDS: LASIX 80 MG IV ×2 (08:23→16:22)
[2024-12-10] MEDS: MIRALAX 17 GRAMS PO (08:24)
[2024-12-10] MEDS: LOVENOX 40 MG SC ×2 (08:24→20:24)
[2024-12-10] MEDS: OCEAN, SALINE MIST 1 SPRAYS NASAL ×3 (08:24→20:46)
--- NOTE | 2024-12-10 08:59 | W.PN.HOSP.TC ---
Today's Communication/Plan
-
see note
Assessment / Plan
Assessment / Plan
Acute on Chronic HFpEF
Acute on Chronic Hypoxemic Respiratory Failure secondary to the above
- CXR shows pulmonary edema, BNP elevated from prior.
- Continue IV Lasix BID. Body weight fluctuating but on bed scale and likely not accurate.
- Echo done in July with normal LVEF and moderate .
- Previously on low-dose spironolactone which has since been discontinued.
- Cardiology following and help appreciated
Acute metabolic encephalopathy
Suspected from hypercapnic respiratory failure
- secondary to hypercapnia presumably
- CT head done in the ED without acute abnormality.
- remains on/off somnolent. Avoid sedatives/narcs
Chronic Hypercapnic Respiratory Failure
Obesity Hypoventilation Syndrome
Compensatory chronic Metabolic alkalosis
- ABG yesterday evening showing again elevated pCO2 level with low pH, VBG in the morning showed some improvement
- Patient is morbidly obese and component of CROW/OHS which makes patient very prone to have recurrence episode of hypercapnic respiratory failure
- Case discussed with pulmonology for potential evaluation of trilogy ventilator - apparently patient have only CPAP at home - BiPAP tried here and patient slept well - only major issue is patient feeling thristy from the drying out of mucosa and
cant take mask herself off to drink water, ? due to frozen shoulder
- Patient needs f/u in office to do sleep study for further eval
- Patient has some anxiety due to ongoing pulmonary issue, need to avoid sedatives/narc
Asthma without Acute Exacerbation
- No evidence of wheezing on exam.
- Continue usual inhaled medications and follow for any changes.
Persistent Atrial Fibrillation
- Stable. Diltiazem dose adjusted to lower dose with addition of metoprolol by cards.
- Patient no longer on Eliquis per current med list (held previously due to hematuria).
Hematuria
- Initial UA contaminated, straight cath sample normal. Renal Bladder US - no stone/structural issues
- patient tells me that urology has requested patient to f/u in office but patient not able to do that so far.
Anemia of Chronic Disease
- Stable. Hgb is at / near known baseline.
- Follow for any changes.
DM-II
- Stable. Hold PO medications.
- Follow glucose and cover with SSI as needed.
- A1C 6.8
Hypothyroidism
- Continue current T4 replacement.
Hyperparathyroidism
- Continue Cinacalcet.
Chronic Venous Stasis Dermatitis
- Local care / Wound Care eval to lower extremities.
Morbid obesity
- complicating all aspects of care
- patient stated of on ozempic in the past
- discussed with daughter that would benefit with f/u with weight loss specialist post discharge
DVT Prophylaxis: Lovenox
Code Status: Full
12/08 Discussed with Patient Daughter over the Phone. Patient Daughter Concerned about Patient Requiring Repeated Admission for Heart Failure or Hypercapnia Respiratory Failure. Unfortunately with Patient Moderate Patient Will Remain at Persistent
Risk of Episodes of OHS/CROW Related Hypercarbic Respiratory Failure. Weight Loss Is [place] Although Patient Does Not Have Much of Capacity to Do Activity. Patient Aware of Weight Loss Physicians in the Area and I have encouraged daughter to make
patient appointment to see weight loss specialist.
Complex case with remains at risk of further pulmonary decline/encephalopathy/cardio-pulm arrest.
Anticipated Discharge: > 48 hours
Subjective/Interval History
-
Date of Service: December 10, 2024
patient able to sleep overnight
remains somnolent and dozing off while talking to me
afebrile overnight
Objective Data
-
Labs:
Laboratory Results
12/10/24 12/10/24
03:39 07:03
WBC 10.7
Hgb 10.0 L
Hct 35.6 L
Plt Count 252
Sodium 139
Potassium 3.8
Chloride 95 L
Carbon Dioxide 39 H
BUN 22 H
Creatinine 0.8
Glucose 133 H
Calcium 8.8
Vital Signs:
Vital Signs
Temp Pulse Resp BP Pulse Ox
98.3 F 107 20 116/75 95
12/10/24 07:53 12/10/24 08:23 12/10/24 07:53 12/10/24 08:23 12/10/24 07:53
I&O
12/09/24 12/10/24 12/11/24
06:59 06:59 06:59
Intake Total 360 / 360 320 / 320 480 / 480
Output Total 1680 / 1680 1250 / 1250
Balance -1320 / -1320 -930 / -930 480 / 480
Review of Systems
-
Respiratory: Reports Cough; Denies Trouble Breathing
Cardiac: Reports No Symptoms
Abdomen/GI: Reports No Symptoms
Physical Exam
-
General: Comfortable and Morbidly Obese
HEENT: Negative Oxygen
Respiratory: Clear to Auscultation
Cardiac: Regular Rhythm and S1/S2; Negative Murmur or Rub
Musculoskeletal: Edema, Left Lower Extrem and Other (Changes of venous stasis dermatitis)
Neuro: Awake, Alert, Oriented, Nonfocal/Grossly Intact and Other (Somnolent)
Psych: Calm
--- NOTE | 2024-12-10 09:41 | CM ---
Patient with Dx HF, Obesity Hypoventilation Syndrome. O2 4L. Receiving IV Lasix. PT 12/08; assist of 2, recommend HH. Seen by wound care nurse. Per nurse; forgetful.
Spoke with patient's [place]; he agrees with BiPAP through [employer]. says he is more forgetful than his , and he is her sole caregiver. was crying, saying that he was told that his is close to end of her life.
would not say that he is overwhelmed caring for her at home, and he confirms that patient/ are refusing to have an agency caregiver again, saying having them in the home created more work for them. Their daughter that lives nearby is
not a caregiver. does not know if patient would agree to Palliative Care, to add more support.
Spoke with patient (her cell [phone]); she agrees to BiPAP through [employer]. The patient says her is not much at help at home, although she admits that he assists her with her ADLs. Patient confirms that she is not interested in having
an agency caregiver again. Patient is not sure she would be receptive to Palliative Care saying that her nurse from [facility] helps her and that is all that is needed.
Message to Irina Castaneda & Rick; BiPAP Order Form will be placed in chart for MD signature- it will be signed tomorrow. Dr Castaneda plans on reaching out to the daughter today. Dr Cabrera spoke with daughter on 12/08. Patient has not been going to
her outpatient medical appointments so unsure she will be receptive to Palliative Care.
Plan fax BiPAP Order Form back to [facility] once signed by MD.
Plan home with BiPAP and resumption [facility].
--- NOTE | 2024-12-10 11:23 | W.PN.CARDCBS ---
Today's Communication / Plan
-
Continue IV Lasix 80 twice daily
Continue reduced dose diltiazem and uptitrated metoprolol, may need additional metoprolol
Would favor urology consult in hopes of obtaining clearance to restart Eliquis after renal stones
Impression / Plan
-
PCP: Dr. Lake
Card: Dr. Eitan Bullock
Impression:
Admitted with acute HFpEF
Multiple previous admissions for acute heart failure preserved EF, August 2024, July 2024, July 2024
Recent admission for ureteral stone and acute HF 08/11/24 until 08/18/24
Permanent atrial fibrillation
Acute HFpEF
Persistent Afib
8% burden on monitor 12/2023 and now persistent Afib since at least 07/01/24
Chronic Eliquis OAC, currently off due to vaginal bleeding and hematuria
CROW/OHS on nocturnal CPAP with 2 L NC as an outpatient
ILD
DM 2
Severe morbid obesity, BMI 50.3
Mild to moderate aortic stenosis
Hypertension
Hypercholesterolemia
Venous insufficiency
Depression
Multiple medical allergies
Echo 07/04/2024: hyperdynamic left ventricular systolic function ejection fraction 65 to 70%. Moderate aortic stenosis with peak and mean gradients of 40 and 21 with a calculated aortic valve area of 1 cm2. Trivial pericardial effusion and no
significant valvular disease overall unchanged from prior echocardiogram
Plan:
Her acute HFpEF is improved but she is still volume overloaded. Will continue IV furosemide for now. Bicarbonate is up to 39 which could be problematic regarding additional diuresis but will follow for now. Defer to pulmonary whether we should
check a blood gas given her baseline CO2 retention which might be worsened with a contraction alkalosis. proBNP was 1360 in September and was 1200 on admission. Troponins were undetectable.
She is now on spironolactone. Not a good candidate for SGLT2 antagonist.
We have cut her diltiazem in half and increase metoprolol. Blood pressure is currently acceptable. We may need up titration of metoprolol, but for now we will hold off. Digoxin and amiodarone are other options.
She remains off anticoagulation with persistent/permanent atrial fibrillation. She was scheduled to see a urologist as outpatient following admission for ureteral stone but was never seen. Would be in favor of urology consult here in the hospital,
and hopefully could be cleared to restart Eliquis. If not feasible, if stabilizes could consider for watchman evaluation.
Progress Note - Functional Analyst
Subjective
Date of Service: December 10, 2024:
79-year-old woman admitted with acute on chronic HFpEF with marked shortness of breath and lethargy.
PMH: Chronic HFpEF, persistent/permanent atrial fibrillation, obstructive sleep apnea, type 2 diabetes, obesity, hypertension, hyperlipidemia, mild to moderate aortic stenosis, chronic venous insufficiency, last admitted in September 2024 with discharge
weight 262 pounds, history of UTIs, vaginal bleeding
Current medications, Pulmicort and albuterol, aspirin 81 mg a day, atorvastatin 10 mg a day, Zyrtec, Sensipar, montelukast, Xalatan, furosemide 80 IV twice daily, subcu Lovenox 40 every 12, MiraLAX, metoprolol ER 25 twice daily, spironolactone 25 a
day, diltiazem now down to 180 twice daily
116/75, pulse 107, respiratory rate 20, afebrile, intake and output probably incomplete, weight is 121 kg, if accurate up 1.5 kg,, currently asleep on BiPAP, earlier today was up to eating breakfast, no complaints per nursing. Diminished breath
sounds bases, irregular rate and rhythm, relatively tachycardic, distant murmur of aortic stenosis, abdomen very obese, extremities legs wrapped, chronic changes, mild-moderate edema
Hemoglobin 10, had been 10.3, potassium is 3.8, BUN/creatinine are 22 and 0.8
Objective
Labs:
12/10/24 07:03
12/10/24 03:39
Labs
Hgb 10.0 g/dL (12.0-16.0) L 12/10/24 07:03
Hct 35.6 % (37.0-47.0) L 12/10/24 07:03
Plt Count 252 10^3/uL (130-400) 12/10/24 07:03
Sodium 139 mmol/L (135-145) 12/10/24 03:39
Potassium 3.8 mmol/L (3.5-5.1) 12/10/24 03:39
BUN 22 mg/dl (7-17) H 12/10/24 03:39
Creatinine 0.8 mg/dL (0.6-1.0) 12/10/24 03:39
Glucose 133 mg/dl (70-99) H 12/10/24 03:39
Troponins
12/07/24 12/08/24 12/08/24
18:45 04:59 09:45
Troponin I < 0.012 < 0.012 < 0.012
12/08/24
16:51
Troponin I Cancelled
Vital Signs and I&O:
Vital Signs
Temp Pulse Resp BP Pulse Ox
36.8 C 107 20 116/75 95
12/10/24 07:53 12/10/24 08:23 12/10/24 07:53 12/10/24 08:23 12/10/24 07:53
Vital Signs
Temp Pulse Resp BP Pulse Ox
36.8 C 107 20 116/75 95
12/10/24 07:53 12/10/24 08:23 12/10/24 07:53 12/10/24 08:23 12/10/24 07:53
Intake & Output
12/08/24 12/09/24 12/10/24 12/11/24
07:59 07:59 07:59 07:59
Intake Total 360 / 360 320 / 320 480 / 480
Output Total 1680 / 1680 1250 / 1250
Balance -1320 / -1320 -930 / -930 480 / 480
Physical Exam
Physical Exam
See above
[2024-12-10 12:36] LABS: Glucose - Point of Care 165 mg/dl (70-99)
[2024-12-10] MEDS: NOVOLOG FLEXPEN-LOW RESISTANCE 1 UNITS SC (12:56)
--- NOTE | 2024-12-10 13:45 | W.PN.PUL3 ---
Today's Communication / Plan
-
Continue BiPAP
Will try to set up home BiPAP versus more advanced machine
Would consider psychiatry/neurology
Patient to be seen by Dr. Reddy tomorrow who will confirm recommendations
provided update to daughter at length
Assessment
-
Assessment: 79-year-old F with PMHx of severe persistent asthma, CROW on CPAP bled with 3L/min, morbid obesity, chronic hypoxic respiratory failure (2-3L/min ATC), HTN, hypothyroidism, DM type II, Hx of right-sided UPJ stone s/p ureteral stent
placement (08/12/2024) c/b pyelonephritis with sepsis, chronic HFpEF, moderate aortic stenosis, psoriasis, glaucoma, and A-fib not on AC due to vaginal bleeding/hematuria who p/w worsening SOB. Patient's daughter called 911 due to worsening SOB for
few days. She was found to be minimally responsive. Initial serum HCO3 32, pCO2 79 with pH 7.32. ProBNP 1200. Initially afebrile, VA 90, BP 108/84, and SpO2 92% on 4L/min. Due to her blood gas, she placed onto BiPAP. CXR showed moderate acute
interstitial and alveolar cardiogenic pulmonary edema. CT head showed no acute intracranial pathology. Given 1mg IV bumex, and admitted to IMU with Pulmonary service consulted for additional management/recommendations.
Chronic conditions CHILD SPECIALIST: Ovarian dermoid, asthma, ILD, CROW on CPAP, HTN, hypothyroidism, psoriasis, HLD, diverticulosis, IBS, glaucoma, DM type II, ulcerative colitis, rosacea, fibrocystic breast, RLL cellulitis, A-fib not on AC due to vaginal
bleeding/hematuria
Impression:
#Acute on chronic respiratory failure with hypoxia + hypercapnia requiring BiPAP
#Acute decompensated heart failure/acute on chronic HFpEF
#A-fib with RVR - now rate controlled
#Significant morbid obesity (BMI: 48.8)
#Severe CROW (AHI 86 with ben SpO2 67% via HSAT in 01/2018) on CPAP
#Obesity hypoventilation syndrome
#Metabolic alkalosis due to chronic hypercapnic respiratory failure
#DM type II (HbA1c: 6.8 on 12/08/2024)
#History of vaginal bleeding + hematuria exacerbated by Eliquis use (now off Eliquis)
#Severe persistent asthma - on budesonide + DuoNebs + Breo as outpatient
#HTN
#Valvular heart disease with moderate
#Chronic venous stasis dermatitis with chronic lymphedema
#Hx of right-sided UPJ stone s/p ureteral stent placement (08/12/2024) c/b pyelonephritis with sepsis
#Hx of mosaic attenuation with significant bronchial wall thickening likely due to small airway disease with bronchiolitis (seen on CT chest 05/06/2020)
#Hx of moderate restrictive lung disease (T% predicted, VC: 61% predicted, post-BD FVC: 1.45L / 58% predicted via PFT from 02/10/2024)
#Severe asthma with COPD (severe persistent obstructive lung defect with normalization of moderate gas exchange capacity defect when accounting for alveolar volume - PFT 02/10/2024)
Plan/recommendations
Unfortunately, patient has not followed up in the sleep clinic as recommended in the past
She has complex sleep disorder with significant sleep apnea, likely obesity hypoventilation syndrome
She also has a history of asthma, however she is not convinced the nebulizer or inhaler helps
She is sedentary, unable to lose weight
Interestingly, she admits to improved symptoms when lying flat
She feels that the BiPAP with the current mask is better than her home CPAP
Main complaint with the system is dry mouth
She continues to be diuresed although I am not sure this is her main issue
Echocardiogram from July 2024 with normal biventricular function, moderate aortic stenosis, PA pressure 36
Cardiology following
Other etiologies to consider include neuromuscular disease
Patient also exhibiting significant anxiety, tearful throughout conversation
admits to possibility of anxiety, depression
Moving forward
Continue with BiPAP with current settings, fullface mask
Reviewed with case management at length
We will try to request BiPAP at home. DME is [facility]
Will need to confirm that patient requires noninvasive volume ventilation due to OHS and COPD, bilevel has been considered and ruled out, including bilevel PAP's. Patient requires pressures greater than 30 cm which is not supported by bilevel VATS
due to body habitus. A traditional ventilator will exceed pressures greater than 30 cm with a maximum pressure of 50 cm
We will consult case management and consider transition from CPAP to BiPAP as she feels better with BiPAP that her home CPAP machine
She may be eligible for a Trilogy vent, but we are not able to obtain this unless she is able to follow-up in our office, which she has not
Dr. Reddy will be rounding 12/11 so she may be able to better provide recommendations
Would consider psychiatry and neurology evaluation on 12/11 to rule out significant anxiety/depression component to help with sleep and/or neuromuscular disease
I do suspect that her primary issue is obesity hypoventilation, severe sleep apnea
Hypercarbia is compensated
Cannot get any sedation, narcotic therapy
For now we will continue with nebulized therapy. Patient prefers inhaler therapy
No indication for steroids
Of note, in 2019 she had followed with Rheumatology with suspicion for vasculitis/GPA vs Sjogren's. Had been started on prednisone at the time but this caused significant HTN, and she was rec'd by her office machine technician to avoid steroids going forward.
DVT ppx: LMWH
Code status: Full code. However I did review the options for tracheotomy if she progresses, mechanical ventilation if she progresses. She adamantly says no as does her
I encouraged them to discuss this together and confirm CODE STATUS
updated daughter by phone, as states he does have 'memory issues'
Data:
CXR 12/07/2024:
1. Moderate acute interstitial and alveolar cardiogenic pulmonary edema.
2. Moderate cardiomegaly.
3. Small right pleural effusion.
4. Mild subsegmental atelectasis in the perihilar right mid lung.
5. Severe calcification in the aortic valve.
6. Severe calcific atherosclerotic plaque in the coronary arteries.
Total time spent today was 58 minutes for this encounter. Time includes reviewing laboratory test/imaging results, reviewing pertinent medical records, obtaining and reviewing medical history, performing an appropriate exam, ordering medications,
tests and procedures. Time also includes documentation of this encounter, coordinating patient care and communicating with other healthcare professionals. Total time does not include separately billed tests performed on this date of service.
Subjective Data
-
Date of Service:
Date of Service: December 10, 2024
Subjective:
Patient feels BiPAP is helping her better than her home CPAP. She sleeps better. She still has a variety of complaints such as bad taste in her mouth, postnasal drip. She is also thirsty. Otherwise appears comfortable with occasional use of
accessory muscles with conversation. She likes inhaler better than nebulized treatment
Objective Data
Data Reviewed
Vital Signs / I&O / Oxygen:
Vital Signs
Temp Pulse Resp BP Pulse Ox
97.7 F 94 20 135/87 92
12/10/24 12:20 12/10/24 12:15 12/10/24 12:20 12/10/24 12:00 12/10/24 12:20
Intake and Output
12/09/24 12/10/24 12/11/24
06:59 06:59 06:59
Intake Total 360 / 360 320 / 320 480 / 480
Output Total 1680 / 1680 1250 / 1250
Balance -1320 / -1320 -930 / -930 480 / 480
SaO2 92
Nasal Cannula flow liters per 4
minute
Physical Exam
General: Respiratory Distress (Mild use of accessory muscles)
HEENT: Normocephalic and Other (Large neck)
Cardiovascular: S1-S2, Regular Rhythm, Murmur (n), Rub (n) and Peripheral Edema (Chronic venous stasis changes)
Respiratory: Wheeze (n), Crackles (n), Rhonchi (n), Accessory Resp Muscle Use (Mild), Stridor (n) and Other (Poor inspiratory effort)
GI: Soft, Non Distended (Morbidly obese) and Non Tender
Neurology: Awake, Alert and No Motor Deficits (Generally weak, right knee pain making difficult for hip flexor)
Skin: Cyanosis (n) and Jaundice (n)
Labs/Micro/Reports
Lab Data
12/10/24 07:03
12/10/24 03:39
[2024-12-10] MEDS: TYLENOL 650 MG PO (16:40)
[2024-12-10] MEDS: LIPITOR 10 MG PO (16:43)
[2024-12-10] MEDS: SINGULAIR 10 MG PO (16:44)
[2024-12-10 18:18] LABS: Glucose - Point of Care 211 mg/dl (70-99)
[2024-12-10] MEDS: NOVOLOG FLEXPEN-LOW RESISTANCE 2 UNITS SC (18:27)
[2024-12-10] MEDS: VENTOLIN NEBULES 2.5 MG INH (18:54)
[2024-12-10] MEDS: XALATAN OPHTHALMIC SOLUTION 1 DROP BOTH EYES (20:46)
[2024-12-10 21:48] LABS: Glucose - Point of Care 134 mg/dl (70-99)
[2024-12-11] VITALS (16 sets, daily range): BP systolic 108–148; BP diastolic 71–113; PULSE 2–113; BMI 47.3
[2024-12-11] MEDS: TYLENOL 650 MG PO (03:13)
--- NOTE | 2024-12-11 04:11 | PTCARENOTE ---
patient refusing to be turned in the bed, will only allow being pulled up.
[2024-12-11] MEDS: BenGay-Like 1 APPLIC TOPICAL (04:32)
[2024-12-11 05:04] LABS: Hematocrit 34.4 % (37.0-47.0); Hemoglobin 9.7 g/dL (12.0-16.0); Mean Corp Hgb Conc. 28.2 g/dL (33.0-37.0); Mean Corpuscular Volume 81.1 fL (81.0-99.0); Platelet Count 276 10^3/uL (130-400); Red Cell Dist. Width 18.7 % (11.5-14.5)
[2024-12-11 05:30] LABS: Blood Urea Nitrogen 20 mg/dl (7-17); Calcium 9.3 mg/dl (8.4-10.2); Chloride 93 mmol/L (98-107); Estimated Creatinine Clearance 70 ml/min; Glucose 128 mg/dl (70-99); Potassium 3.8 mmol/L (3.5-5.1); Sodium 139 mmol/L (135-145); eGFR > 60.00
[2024-12-11 05:50] LABS: Carbon Dioxide 40 mmol/L (22-30)
[2024-12-11] MEDS: PULMICORT 0.25 MG INH ×2 (06:19→18:04)
--- NOTE | 2024-12-11 08:00 | PTCARENOTE ---
Assumed care of pt from package delivery room service runner HALIMA. Jessica3. Afib on tele, HRs 90s-100s. Remains on BiPAP at this time, SpO2 90%. Pt sleeping in bed, call smith in reach. Assessment documented.
[2024-12-11 08:01] LABS: Glucose - Point of Care 127 mg/dl (70-99)
[2024-12-11] MEDS: NOVOLOG FLEXPEN-LOW RESISTANCE SC ×2 (08:09→12:33)
[2024-12-11] MEDS: LASIX 80 MG IV ×2 (08:54→16:07)
[2024-12-11] MEDS: LOVENOX 40 MG SC ×2 (08:59→20:16)
[2024-12-11] MEDS: OCEAN, SALINE MIST 1 SPRAYS NASAL ×3 (08:59→20:20)
[2024-12-11] MEDS: CARDIZEM CD 180 MG PO ×2 (08:59→20:11)
[2024-12-11] MEDS: ASPIR LOW (ENTERIC COATED) 81 MG PO (08:59)
[2024-12-11] MEDS: SENSIPAR 30 MG PO (08:59)
[2024-12-11] MEDS: ZYRTEC 10 MG PO (08:59)
[2024-12-11] MEDS: ALDACTONE 25 MG PO (08:59)
[2024-12-11] MEDS: TOPROL XL 25 MG PO ×2 (09:00→12:35)
[2024-12-11] MEDS: MIRALAX PO (09:14)
--- NOTE | 2024-12-11 09:24 | W.PN.PUL3 ---
Today's Communication / Plan
-
CPAP failure, will try to arrange BIPAP as outpatient--if not covered will set up AVAPs
CO2 retention may be due to poor CROW control, underlying OHS, severe RLD, deconditioning/morbid obesity, inappropriate O2 use at home
We had a long discussion today (with her daughter present) on her lack of interest/motivation to get up, refusing to do PT, etc and that this is her largest hindrance to improvement
This is her 4th admission in 6 mos for similar issues
I do agree a psych eval could be helpful if there is underlying major depression
We briefly discussed hospice if she is not motivated to make progress while here
Assessment
-
79-year-old F with PMHx of severe persistent asthma, CROW on CPAP bled with 3L/min, morbid obesity, chronic hypoxic respiratory failure (2-3L/min ATC), HTN, hypothyroidism, DM type II, Hx of right-sided UPJ stone s/p ureteral stent placement
(08/12/2024) c/b pyelonephritis with sepsis, chronic HFpEF, moderate aortic stenosis, psoriasis, glaucoma, and A-fib not on AC due to vaginal bleeding/hematuria who p/w worsening SOB. Patient's daughter called 911 due to worsening SOB for few days.
She was found to be minimally responsive. Initial serum HCO3 32, pCO2 79 with pH 7.32. ProBNP 1200. Initially afebrile, MS 90, BP 108/84, and SpO2 92% on 4L/min. Due to her blood gas, she placed onto BiPAP. CXR showed moderate acute interstitial
and alveolar cardiogenic pulmonary edema. CT head showed no acute intracranial pathology. Given 1mg IV bumex, and admitted to IMU with Pulmonary service consulted for additional management/recommendations.
Impression:
Acute on chronic respiratory failure with hypoxia + hypercapnia requiring BiPAP
Acute decompensated heart failure/acute on chronic HFpEF
A-fib with RVR - now rate controlled
Obesity hypoventilation syndrome
Metabolic alkalosis due to chronic hypercapnic respiratory failure
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
Severe persistent asthma - on budesonide + DuoNebs + Breo as outpatient
PFT 02/10/2024-persistent obstructive lung defect with normalization of moderate gas exchange capacity defect when accounting for alveolar volume
ILD/Hx of moderate restrictive lung disease (T% predicted, VC: 61% predicted, post-BD FVC: 1.45L / 58% predicted via PFT from 02/10/2024)
Hx of mosaic attenuation with significant bronchial wall thickening likely due to small airway disease with bronchiolitis (seen on CT chest 05/06/2020)
Severe CROW (AHI 86 with ben SpO2 67% via HSAT in 01/2018) noncompliant on PAP
Hypothyroidism
Psoriasis
HTN
HLD
Diverticulosis/IBS/Ulcerative colitis
Glaucoma
Rosacea
Fibrocystic breast
RLL cellulitis
Valvular heart disease with moderate
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
A-fib not on AC due to vaginal bleeding/hematuria
Significant morbid obesity (BMI: 48.8)
DM type II (HbA1c: 6.8 on 12/08/2024)
History of vaginal bleeding + hematuria exacerbated by Eliquis use (now off Eliquis)
Ovarian dermoid
Hx of right-sided UPJ stone s/p ureteral stent placement (08/12/2024) c/b pyelonephritis with sepsis
Plan
Unfortunately, patient has not followed up in the sleep clinic as recommended in the past
She has complex sleep disorder with significant sleep apnea, likely obesity hypoventilation syndrome
She has CO2 retention despite CPAP use/compliance as reported by patient and daughter
Last Modem report from OP reviewed in Feb 2024--showing 100% compliance AHI 9.6, setting of 9cm water
May be considered CPAP failure
CO2 retention may be due to many issues including OHS, HF, inappropriate O2 use at home
Would need sleep study but she notes she 'cannot' get one out of fear of not having a bidet to use at the sleep center because she cannot wipe herself
She also has a history of asthma, however she is not convinced the nebulizer or inhaler helps
She is sedentary, unable to lose weight
Interestingly, she admits to improved symptoms when lying flat
She continues to be diuresed although I am not sure this is her main issue
Echocardiogram from July 2024 with normal biventricular function, moderate aortic stenosis, PA pressure 36
proBNP 1200 <- 1360 <- 1430
Cardiology following
We discussed this is her 4th admission for similar in 6 mos
Other etiologies to consider include profound deconditioning with functional neuromuscular limitations from extreme sedentary lifestyle
PT/OT on board but patient has declined numerous times in past
Patient also exhibiting significant anxiety, tearful throughout conversation
admits to possibility of anxiety, depression
I think a psych eval would be very helpful in this situation as she has anhedonia, lack of energy, insomnia, etc
Moving forward--continue with BiPAP with current settings, fullface mask
Reviewed with case management at length
We will try to request BiPAP at home. DME is [employer]
Will need to confirm that patient requires noninvasive volume ventilation due to OHS and COPD, bilevel has been considered and ruled out, including bilevel PAP's. Patient requires pressures greater than 30 cm which is not supported by bilevel VATS
due to body habitus. A traditional ventilator will exceed pressures greater than 30 cm with a maximum pressure of 50 cm
We will consult case management and consider transition from CPAP to BiPAP as she feels better with BiPAP that her home CPAP machine
If not able to obtain BIPAP based on her current requirements, will set up AVAPs
For now we will continue with nebulized therapy. Patient prefers inhaler therapy
No indication for steroids
Of note, in 2019 she had followed with Rheumatology with suspicion for vasculitis/GPA vs Sjogren's.
Had been started on prednisone at the time but this caused significant HTN, and she was rec'd by her pcts to avoid steroids going forward.
DVT ppx: LMWH
Code status: Full code. However I did review the options for tracheotomy if she progresses, mechanical ventilation if she progresses. She adamantly says no as does her
I encouraged them to discuss this together and confirm CODE STATUS
I reviewed her high risk of respiratory failure as well today including trach placement
Updated care team
Discussion is ongoing, but GOC would be helpful. We briefly discussed hospice as well if she does not wish to continue her care moving forward.
Data:
CXR 12/07/2024:
1. Moderate acute interstitial and alveolar cardiogenic pulmonary edema.
2. Moderate cardiomegaly.
3. Small right pleural effusion.
4. Mild subsegmental atelectasis in the perihilar right mid lung.
5. Severe calcification in the aortic valve.
6. Severe calcific atherosclerotic plaque in the coronary arteries.
CT Chest 2019- IMPRESSION:
1. Findings suggestive of mosaic perfusion pattern throughout the lungs bilaterally which can be seen with chronic airways and/or vascular disease.
2. 0.6 cm pleural-based left lower lobe nodule. Follow-up noncontrast chest CT in 12 months is recommended.
3. Additional scattered small tree-in-bud nodules within the lower lungs bilaterally may reflect a superimposed mild infectious/inflammatory process.
4. No pulmonary fibrosis.
ECHO 07/04/24- Normal left ventricular wall thickness. Hyperdynamic left ventricular systolic function. 65-70% by visual assessment. Normal right ventricular size and function. Trace mitral regurgitation.
Moderate aortic stenosis. Peak/mean gradients across the aortic valve are 40/21 mmHg. Using an LVOT diameter of 1.8 cm. Mild tricuspid regurgitation. Trivial pericardial effusion. No significant change compared to prior echocardiogram
Total time spent today was 63 minutes for this encounter. Time includes reviewing laboratory test/imaging results, reviewing pertinent medical records, obtaining and reviewing medical history, performing an appropriate exam, ordering medications,
tests and procedures. Time also includes documentation of this encounter, coordinating patient care and communicating with other healthcare professionals. Total time does not include separately billed tests performed on this date of service.
Subjective Data
-
Date of Service:
Date of Service: December 11, 2024
Chief Complaint: Pulmonary Follow Up
Subjective:
Remains bedbound, daughter at bedside
She reports she is mostly wheelchair bound due to knee pain but feels she 'cannot' do anything
Very inactive at home
Reports compliance with CPAP and O2, but she notes ongoing awakenings/thirst with nocturia/CO2 retention despite use
She has been steadily increasing her O2 at home due to 'SOB'
Objective Data
Data Reviewed
Vital Signs / I&O / Oxygen:
Vital Signs
Temp Pulse Resp BP Pulse Ox
98.9 F 116 16 128/98 92
12/11/24 07:55 12/11/24 08:54 12/11/24 06:22 12/11/24 08:54 12/11/24 06:22
Intake and Output
12/10/24 12/11/24 12/12/24
06:59 06:59 06:59
Intake Total 320 / 320 1210 / 1210
Output Total 1250 / 1250 600 / 600
Balance -930 / -930 610 / 610
SaO2 92
Nasal Cannula flow liters per 2
minute
Physical Exam
General: Respiratory Distress (Mild use of accessory muscles) and Other (morbidly obese, deconditioned appearing)
HEENT: Normocephalic, Anicteric and Other (Large neck, dry MM)
Cardiovascular: S1-S2, Regular Rhythm, Murmur (n), Rub (n) and Peripheral Edema (Chronic venous stasis changes)
Respiratory: Clear (very diminished, poor effort), Wheeze (n), Crackles (n), Rhonchi (n), Accessory Resp Muscle Use (Mild), Stridor (n) and Other (Poor inspiratory effort)
GI: Soft, Non Distended (Morbidly obese) and Non Tender
Neurology: Awake, Alert, Oriented, No Motor Deficits (Generally weak, right knee pain making difficult for hip flexor) and Depressed (lethargic appearing, depressed, anhedonic expression)
Skin: Cyanosis (n) and Jaundice (n)
Labs/Micro/Reports
Lab Data
12/11/24 04:38
12/11/24 04:38
--- NOTE | 2024-12-11 10:47 | W.PN.CARDCBS ---
Today's Communication / Plan
-
Double metoprolol ER to 50 mg twice daily
Add digoxin for better rate control
For now avoid amiodarone for rate control
Ideally decrease diltiazem
Impression / Plan
-
PCP: Dr. Lake
Card: Dr. Eitan Bullock
Impression:
Admitted with acute HFpEF
Multiple previous admissions for acute heart failure preserved EF, August 2024, July 2024, July 2024
Recent admission for ureteral stone and acute HF 08/11/24 until 08/18/24
Permanent atrial fibrillation
Acute HFpEF
Persistent Afib
8% burden on monitor 12/2023 and now persistent Afib since at least 07/01/24
Chronic Eliquis OAC, currently off due to vaginal bleeding and hematuria
CROW/OHS on nocturnal CPAP with 2 L NC as an outpatient
ILD
DM 2
Severe morbid obesity, BMI 50.3
Mild to moderate aortic stenosis
Hypertension
Hypercholesterolemia
Venous insufficiency
Depression
Multiple medical allergies
Echo 07/04/2024: hyperdynamic left ventricular systolic function ejection fraction 65 to 70%. Moderate aortic stenosis with peak and mean gradients of 40 and 21 with a calculated aortic valve area of 1 cm2. Trivial pericardial effusion and no
significant valvular disease overall unchanged from prior echocardiogram
Plan:
Volume status is improving, but ventricular response is still rapid and her serum bicarbonate is 40 on her BMP.
She is now on spironolactone. She is not a good candidate for SGLT2 antagonists.
Will double metoprolol ER to 50 mg twice daily.
Will add digoxin 0.125 mg daily and recheck level.
Continue IV furosemide 80 mg twice daily, for chest x-ray in AM. Will check with pulmonary regarding bicarb of 40.
Progress Note - [employer]
Subjective
Date of Service: December 11, 2024:
79-year-old woman admitted with acute on chronic HFpEF with marked shortness of breath and lethargy.
PMH: Chronic HFpEF, persistent/permanent atrial fibrillation, obstructive sleep apnea, type 2 diabetes, obesity, hypertension, hyperlipidemia, mild to moderate aortic stenosis, chronic venous insufficiency, last admitted in September 2024 with discharge
weight 262 pounds, history of UTIs, vaginal bleeding
Current meds: Pulmicort, Ventolin, aspirin 81 mg a day, atorvastatin 10 mg a day, Zyrtec 10 mg a day, Sensipar 30 mg a day, montelukast, 10 mg a day, Xalatan eyedrops, furosemide 80 IV twice daily, enoxaparin, 40 every 12 MiraLAX, metoprolol ER 25
twice daily, spironolactone 25 daily, diltiazem ER 180 mg twice daily
128/98, pulse 116, respiratory rate 16, afebrile, weight is 117.3 kg, if accurate down 3.7 kg, from December 09 down 2.3 kg, she is depressed, crackles in bases diminished more on the right, irregular rate and rhythm still tachycardic, edema is
improving, and his murmur
Hemoglobin is 9.7, white count is 10.6, platelets are 276, bicarbonate is 40, BUN is 20, creatinine is 0.8
Objective
Labs:
12/11/24 04:38
12/11/24 04:38
Labs
Hgb 9.7 g/dL (12.0-16.0) L 12/11/24 04:38
Hct 34.4 % (37.0-47.0) L 12/11/24 04:38
Plt Count 276 10^3/uL (130-400) 12/11/24 04:38
Sodium 139 mmol/L (135-145) 12/11/24 04:38
Potassium 3.8 mmol/L (3.5-5.1) 12/11/24 04:38
BUN 20 mg/dl (7-17) H 12/11/24 04:38
Creatinine 0.8 mg/dL (0.6-1.0) 12/11/24 04:38
Glucose 128 mg/dl (70-99) H 12/11/24 04:38
Troponins
12/08/24
16:51
Troponin I Cancelled
Vital Signs and I&O:
Vital Signs
Temp Pulse Resp BP Pulse Ox
37.2 C 116 16 128/98 90
12/11/24 07:55 12/11/24 08:54 12/11/24 06:22 12/11/24 08:54 12/11/24 10:42
Vital Signs
Temp Pulse Resp BP Pulse Ox
37.2 C 116 16 128/98 90
12/11/24 07:55 12/11/24 08:54 12/11/24 06:22 12/11/24 08:54 12/11/24 10:42
Intake & Output
12/09/24 12/10/24 12/11/24 12/12/24
07:59 07:59 07:59 07:59
Intake Total 360 / 360 320 / 320 1210 / 1210
Output Total 1680 / 1680 1250 / 1250 600 / 600
Balance -1320 / -1320 -930 / -930 610 / 610
Physical Exam
Physical Exam
See above
[2024-12-11 12:39] LABS: Glucose - Point of Care 131 mg/dl (70-99)
[2024-12-11] MEDS: LANOXIN 250 MCG IV ×2 (12:59→20:17)
--- NOTE | 2024-12-11 14:47 | W.PN.HOSP.TC ---
Today's Communication/Plan
-
continue IV diuretics and rate control
continue BIPAP
appreciates cards/pulm recs
Assessment / Plan
Assessment / Plan
Assessment:
Acute on chronic respiratory failure with hypoxia + hypercapnia requiring BiPAP
Obesity Hypoventilation Syndrome
Compensatory chronic Metabolic alkalosis
- Patient is morbidly obese and component of CROW/OHS which makes patient very prone to have recurrence episode of hypercapnic respiratory failure
- Case discussed with pulmonology for potential evaluation of trilogy ventilator - apparently patient have only CPAP at home - BiPAP tried here and patient slept well - only major issue is patient feeling thristy from the drying out of mucosa and
cant take mask herself off to drink water, ? due to frozen shoulder
- Patient needs f/u in office to do sleep study for further evaluation
Anxiety/Depression contributing to above
- psych evaluation
Acute on Chronic HFpEF
Acute on Chronic Hypoxemic Respiratory Failure secondary to the above
- CXR shows pulmonary edema, BNP elevated from prior.
- Continue IV Lasix - requires intensive monitoring of I/Os, weights, lytes
- GMDT: Aldactone/BB/Digoxin
- Echo done in July with normal LVEF and moderate .
- Cardiology following and help appreciated
Acute metabolic encephalopathy
Suspected from hypercapnic respiratory failure
- secondary to hypercapnia presumably
- CT head done in the ED without acute abnormality.
- remains on/off somnolent. Avoid sedatives/narcs
Asthma without Acute Exacerbation
- No evidence of wheezing on exam.
- Continue usual inhaled medications and follow for any changes.
Persistent Atrial Fibrillation with RVR
- continue Digoxin/BB
- wean dose of Cardizem
- Patient no longer on Eliquis per current med list (held previously due to hematuria).
Hematuria
- Initial UA contaminated, straight cath sample normal. Renal Bladder US - no stone/structural issues
- patient tells me that urology has requested patient to f/u in office but patient not able to do that so far.
Anemia of Chronic Disease
- Stable. Hgb is at / near known baseline.
- Follow for any changes.
DM-II
- Stable. Hold PO medications.
- Follow glucose and cover with SSI as needed.
- A1C 6.8
Hypothyroidism
- Continue current T4 replacement.
Hyperparathyroidism
- Continue Cinacalcet.
Chronic Venous Stasis Dermatitis
- Local care/Wound Care eval to lower extremities.
Morbid obesity
- complicating all aspects of care
- patient stated of on ozempic in the past
- discussed with daughter that would benefit with f/u with weight loss specialist post discharge
DVT Prophylaxis: Lovenox
Code Status: Full
12/08 Dr. Cabrera Discussed with Patient Daughter over the Phone. Patient Daughter Concerned about Patient Requiring Repeated Admission for Heart Failure or Hypercapnia Respiratory Failure. Unfortunately with Patient Moderate Patient Will Remain at
Persistent Risk of Episodes of OHS/CROW Related Hypercarbic Respiratory Failure. Weight Loss Is [place] Although Patient Does Not Have Much of Capacity to Do Activity. Patient Aware of Weight Loss Physicians in the Area and I have encouraged daughter
to make patient appointment to see weight loss specialist.
Complex case with remains at risk of further pulmonary decline/encephalopathy/cardio-pulm arrest.
Anticipated Discharge: > 48 hours
Subjective/Interval History
-
Date of Service: December 11, 2024
reports compliance with CPAP
currently on BiPAP
Objective Data
-
Labs:
Laboratory Results
12/11/24
04:38
WBC 10.6
Hgb 9.7 L
Hct 34.4 L
Plt Count 276
Sodium 139
Potassium 3.8
Chloride 93 L
Carbon Dioxide 40 H
BUN 20 H
Creatinine 0.8
Glucose 128 H
Calcium 9.3
Vital Signs:
Vital Signs
Temp Pulse Resp BP Pulse Ox
98.8 F 109 16 108/86 90
12/11/24 11:30 12/11/24 12:59 12/11/24 06:22 12/11/24 12:35 12/11/24 10:58
I&O
12/10/24 12/11/24 12/12/24
06:59 06:59 06:59
Intake Total 320 / 320 1210 / 1210
Output Total 1250 / 1250 600 / 600 800 / 800
Balance -930 / -930 610 / 610 -800 / -800
Physical Exam
-
General: No Apparent Distress, Morbidly Obese and Other (deconditioning)
HEENT: Normocephalic and Atraumatic
Respiratory: Clear to Auscultation and Accessory Resp Muscle Use (mild)
Cardiac: Regular Rhythm and S1/S2
GI: Soft
Neuro: AO x 3
Psych: Calm
Data Reviewed
-
Total Time Spent with Patient (in minutes): 51
Labs: Labs Reviewed by me
--- NOTE | 2024-12-11 15:30 | CM ---
CM reviewed chart and pt with pulm/Dr Poole
Pt has been refusing therapy
Per Dr Poole- she will attempt to arrange for bipap outpt through her office
Will reach out to CM if bipap needs to be set up prior to dc
Bipap rx remains on the chart, will need signature for completion
Plan if home for [facility]
Discharge Disposition- home with [facility], watch for bipap needs or higher level needs
--- NOTE | 2024-12-11 15:41 | CS.PSYCHR ---
Consult Summary - Psychiatry
-
Pt is a 79 yo female with PMH significant for CHF, CROW, Asthma, Persistent A fib, Anemia of chronic dz, Hypothyroidism, Morbid obesity, chronic venous stasis and DM-II, who presented to ED for evaluation of SOB and lethargy. Patient has been
using oxygen at home with minimal improvement in her symptoms. Pt noted to be poorly responsive in the ED, would not answer questions. Psychiatry asked to evaluate the psychological component of pt's complaints/symptoms. Pt seen with dtr, who
reports pt has been depressed for approx 10 years. She was recommended to have both knees replaced 24 years ago per dtr, but refused. Dtr states pt has become increasingly immobile, has things set up at home and has anxiety about going out. She
has not been to dtr's home in 6 years because there is one step to enter. Pt c/o she is in a lot of pain. Pt resting in bed, somewhat SOB with family attending to her. She reluctantly agreed to try an SSRI if it is feasible, although voiced
concern about becoming foggy on it. QTc 397 on 12/07/24.
Psych Hx: denied
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
MSE: alert, sensorium appears intact, speech coherent, voice somewhat weak. No signs of psychosis. Mood dysphoric. Denies SI. Insight appears limited
Imp: Unspecified Depressive d/o; Unspecified Anxiety d/o
Would consider SSRI, starting at low dose- Zoloft or Lexapro would be the safest options; pt and family given medication education about benefits/risks/potential side effects
Outpatient therapy would also be beneficial. Will follow
[2024-12-11 16:59] LABS: Glucose - Point of Care 150 mg/dl (70-99)
[2024-12-11] MEDS: NOVOLOG FLEXPEN-LOW RESISTANCE 1 UNITS SC (17:50)
[2024-12-11] MEDS: LIPITOR 10 MG PO (17:51)
[2024-12-11] MEDS: SINGULAIR 10 MG PO (17:51)
[2024-12-11] MEDS: TOPROL XL 50 MG PO (20:12)
[2024-12-11] MEDS: XALATAN OPHTHALMIC SOLUTION 1 DROP BOTH EYES (20:20)
[2024-12-11 21:41] LABS: Glucose - Point of Care 147 mg/dl (70-99)
[2024-12-12] VITALS (22 sets, daily range): BP systolic 86–142; BP diastolic 65–91; PULSE 2–105; BMI 46.6
--- NOTE | 2024-12-12 03:46 | PTCARENOTE ---
assumed care from dayshift RN. Patient on bipap HS, SpO2 91%. Afib on monitor. Patient is AAOX3 but can be confused and forgetful at times. Patient resting in bed with call smith in reach. assessment and vital signs as documented.
[2024-12-12] MEDS: BenGay-Like 1 APPLIC TOPICAL ×2 (04:41→09:06)
[2024-12-12 04:54] LABS: Hematocrit 35.8 % (37.0-47.0); Hemoglobin 10.4 g/dL (12.0-16.0); Mean Corp Hgb Conc. 29.1 g/dL (33.0-37.0); Mean Corpuscular Volume 79.9 fL (81.0-99.0); Platelet Count 295 10^3/uL (130-400); Red Cell Dist. Width 18.6 % (11.5-14.5)
[2024-12-12 05:24] LABS: Blood Urea Nitrogen 24 mg/dl (7-17); Calcium 9.4 mg/dl (8.4-10.2); Chloride 91 mmol/L (98-107); Estimated Creatinine Clearance 70 ml/min; Glucose 104 mg/dl (70-99); Potassium 3.8 mmol/L (3.5-5.1); Sodium 139 mmol/L (135-145); eGFR > 60.00
[2024-12-12 05:38] LABS: Carbon Dioxide 44 mmol/L (22-30)
[2024-12-12 07:23] LABS: Glucose - Point of Care 99 mg/dl (70-99)
[2024-12-12] MEDS: PULMICORT 0.25 MG INH ×2 (07:27→19:32)
[2024-12-12] MEDS: NOVOLOG FLEXPEN-LOW RESISTANCE SC ×2 (08:54→17:02)
[2024-12-12] MEDS: MIRALAX 17 GRAMS PO (09:03)
[2024-12-12] MEDS: ALDACTONE 25 MG PO (09:03)
[2024-12-12] MEDS: ZOLOFT 25 MG PO (09:04)
[2024-12-12] MEDS: ZYRTEC 10 MG PO (09:04)
[2024-12-12] MEDS: TOPROL XL 50 MG PO (09:04)
[2024-12-12] MEDS: CARDIZEM CD 180 MG PO (09:04)
[2024-12-12] MEDS: SENSIPAR 30 MG PO (09:04)
[2024-12-12] MEDS: LASIX 80 MG IV ×2 (09:05→15:54)
[2024-12-12] MEDS: LOVENOX 40 MG SC ×2 (09:05→20:38)
[2024-12-12] MEDS: ASPIR LOW (ENTERIC COATED) 81 MG PO (09:05)
--- NOTE | 2024-12-12 09:24 | W.PN.PUL3 ---
Today's Communication / Plan
-
Morbid obesity and profound sedentary lifestyle, lack of motivation are all her largest issues
If she can rehab aggressively she likely could wean off oxygen
Ongoing BIPAP set up for home, this is being arranged by my office
We will arrange nocturnal study once on BIPAP
PT/OT strongly encouraged to her today, I reviewed this with care team
Lidocaine patch to R knee, avoid sedation/opiates in this patient
Assessment
-
79-year-old F with PMHx of severe persistent asthma, CROW on CPAP bled with 3L/min, morbid obesity, chronic hypoxic respiratory failure (2-3L/min ATC), HTN, hypothyroidism, DM type II, Hx of right-sided UPJ stone s/p ureteral stent placement
(08/12/2024) c/b pyelonephritis with sepsis, chronic HFpEF, moderate aortic stenosis, psoriasis, glaucoma, and A-fib not on AC due to vaginal bleeding/hematuria who p/w worsening SOB. Patient's daughter called 911 due to worsening SOB for few days.
She was found to be minimally responsive. Initial serum HCO3 32, pCO2 79 with pH 7.32. ProBNP 1200. Initially afebrile, TX 90, BP 108/84, and SpO2 92% on 4L/min. Due to her blood gas, she placed onto BiPAP. CXR showed moderate acute interstitial
and alveolar cardiogenic pulmonary edema. CT head showed no acute intracranial pathology. Given 1mg IV bumex, and admitted to IMU with Pulmonary service consulted for additional management/recommendations.
Impression:
Acute on chronic respiratory failure with hypoxia + hypercapnia requiring BiPAP
Acute decompensated heart failure/acute on chronic HFpEF
A-fib with RVR - now rate controlled
Obesity hypoventilation syndrome
Metabolic alkalosis due to chronic hypercapnic respiratory failure
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
Severe persistent asthma - on budesonide + DuoNebs + Breo as outpatient
PFT 02/10/2024-persistent obstructive lung defect with normalization of moderate gas exchange capacity defect when accounting for alveolar volume
ILD/Hx of moderate restrictive lung disease (T% predicted, VC: 61% predicted, post-BD FVC: 1.45L / 58% predicted via PFT from 02/10/2024)
Hx of mosaic attenuation with significant bronchial wall thickening likely due to small airway disease with bronchiolitis (seen on CT chest 05/06/2020)
Severe CROW (AHI 86 with ben SpO2 67% via HSAT in 01/2018) noncompliant on PAP
Hypothyroidism
Psoriasis
HTN
HLD
Diverticulosis/IBS/Ulcerative colitis
Glaucoma
Rosacea
Fibrocystic breast
RLL cellulitis
Valvular heart disease with moderate
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
A-fib not on AC due to vaginal bleeding/hematuria
Significant morbid obesity (BMI: 48.8)
DM type II (HbA1c: 6.8 on 12/08/2024)
History of vaginal bleeding + hematuria exacerbated by Eliquis use (now off Eliquis)
Ovarian dermoid
Hx of right-sided UPJ stone s/p ureteral stent placement (08/12/2024) c/b pyelonephritis with sepsis
Plan
Unfortunately, patient has not followed up in the sleep clinic as recommended in the past
She has complex sleep disorder with significant sleep apnea, likely obesity hypoventilation syndrome
She has CO2 retention despite CPAP use/compliance as reported by patient and daughter
Last Modem report from OP reviewed in Feb 2024--showing 100% compliance AHI 9.6, setting of 9cm water
May be considered CPAP failure
CO2 retention may be due to many issues including OHS, HF, inappropriate O2 use at home--her hypoxemia is most likely related to severe RLD (IS effort <500mL)
Would need sleep study but she notes she 'cannot' get one out of fear of not having a bidet to use at the sleep center because she cannot wipe herself
She also has a history of asthma, however she is not convinced the nebulizer or inhaler helps
She is sedentary, unable to lose weight
Interestingly, she admits to improved symptoms when lying flat
She continues to be diuresed although I am not sure this is her main issue
Echocardiogram from July 2024 with normal biventricular function, moderate aortic stenosis, PA pressure 36
proBNP 1200 <- 1360 <- 1430
Cardiology following
We discussed this is her 4th admission for similar in 6 mos
Other etiologies to consider include profound deconditioning with functional neuromuscular limitations from extreme sedentary lifestyle
PT/OT on board but patient has declined numerous times in past
Patient also exhibiting significant anxiety, tearful throughout conversation
Psych consult appreciated--she is started on SSRI
Will need to confirm that patient requires noninvasive volume ventilation due to OHS and COPD, bilevel has been considered and ruled out, including bilevel PAP's. Patient requires pressures greater than 30 cm which is not supported by bilevel VATS
due to body habitus. A traditional ventilator will exceed pressures greater than 30 cm with a maximum pressure of 50 cm
We will consult case management and consider transition from CPAP to BiPAP as she feels better with BiPAP that her home CPAP machine
If not able to obtain BIPAP based on her current requirements, will set up AVAPs
For now we will continue with nebulized therapy. Patient prefers inhaler therapy
No indication for steroids
Of note, in 2019 she had followed with Rheumatology with suspicion for vasculitis/GPA vs Sjogren's.
Had been started on prednisone at the time but this caused significant HTN, and she was rec'd by her electrician helper powerhouse to avoid steroids going forward.
DVT ppx: LMWH
Family Discussions
Leonel- Code status: Full code. However I did review the options for tracheotomy if she progresses, mechanical ventilation if she progresses. She adamantly says no as does her
I encouraged them to discuss this together and confirm CODE STATUS
Zulema 12/11/24- I reviewed her high risk of respiratory failure as well today including trach placement. Updated care team on her care. Discussion is ongoing, but GOC would be helpful. We briefly discussed hospice as well if she does not wish to
continue her care moving forward.
12/12/24- I reviewed her lack of motivation to get OOB and rehab. I reviewed with her her refusal to get OOB/PT, her refusal to do sleep study, her refusal to perform IS. If he was not aware, he is now aware of her declining treatment and
not wanting to get better despite her claims.
Data:
CXR 12/07/2024:
1. Moderate acute interstitial and alveolar cardiogenic pulmonary edema.
2. Moderate cardiomegaly.
3. Small right pleural effusion.
4. Mild subsegmental atelectasis in the perihilar right mid lung.
5. Severe calcification in the aortic valve.
6. Severe calcific atherosclerotic plaque in the coronary arteries.
CT Chest 2019- IMPRESSION:
1. Findings suggestive of mosaic perfusion pattern throughout the lungs bilaterally which can be seen with chronic airways and/or vascular disease.
2. 0.6 cm pleural-based left lower lobe nodule. Follow-up noncontrast chest CT in 12 months is recommended.
3. Additional scattered small tree-in-bud nodules within the lower lungs bilaterally may reflect a superimposed mild infectious/inflammatory process.
4. No pulmonary fibrosis.
ECHO 07/04/24- Normal left ventricular wall thickness. Hyperdynamic left ventricular systolic function. 65-70% by visual assessment. Normal right ventricular size and function. Trace mitral regurgitation.
Moderate aortic stenosis. Peak/mean gradients across the aortic valve are 40/21 mmHg. Using an LVOT diameter of 1.8 cm. Mild tricuspid regurgitation. Trivial pericardial effusion. No significant change compared to prior echocardiogram
Total time spent today was 53 minutes for this encounter. Time includes reviewing laboratory test/imaging results, reviewing pertinent medical records, obtaining and reviewing medical history, performing an appropriate exam, ordering medications,
tests and procedures. Time also includes documentation of this encounter, coordinating patient care and communicating with other healthcare professionals. Total time does not include separately billed tests performed on this date of service.
Subjective Data
-
Date of Service:
Date of Service: December 12, 2024
Chief Complaint: Pulmonary Follow Up
Subjective:
Remains the same, reports pain is her limiting factor for lack of PT
She has refused PT yesterday despite claiming not to
She feels she needs to have a BM but is not motivated to get up to go
at bedside
Objective Data
Data Reviewed
Vital Signs / I&O / Oxygen:
Vital Signs
Temp Pulse Resp BP Pulse Ox
98.7 F 107 24 130/71 91
12/12/24 07:07 12/12/24 09:05 12/12/24 07:32 12/12/24 09:05 12/12/24 07:32
Intake and Output
12/11/24 12/12/24 12/13/24
06:59 06:59 06:59
Intake Total 1210 / 1210 250 / 250
Output Total 600 / 600 2150 / 2150
Balance 610 / 610 -1900 / -1900
SaO2 91
Nasal Cannula flow liters per 2
minute
Physical Exam
General: Respiratory Distress (Mild use of accessory muscles) and Other (morbidly obese, deconditioned appearing)
HEENT: Normocephalic, Anicteric and Other (Large neck, dry MM)
Cardiovascular: S1-S2, Regular Rhythm, Murmur (n), Rub (n) and Peripheral Edema (Chronic venous stasis changes)
Respiratory: Clear (very diminished, poor effort), Wheeze (n), Crackles (n), Rhonchi (n), Accessory Resp Muscle Use (Mild), Stridor (n) and Other (Poor inspiratory effort)
GI: Soft, Non Distended (Morbidly obese) and Non Tender
Neurology: Awake, Alert, Oriented, No Motor Deficits (Generally weak, right knee pain making difficult for hip flexor) and Depressed (lethargic appearing, depressed, anhedonic expression)
Skin: Cyanosis (n) and Jaundice (n)
Labs/Micro/Reports
Lab Data
12/12/24 04:36
12/12/24 04:36
[2024-12-12] MEDS: OCEAN, SALINE MIST 1 SPRAYS NASAL (10:57)
[2024-12-12] MEDS: ULTRAM 25 MG PO (11:08)
[2024-12-12] MEDS: DULCOLAX 10 MG PO (11:08)
[2024-12-12] MEDS: LANOXIN 125 MCG PO (11:23)
[2024-12-12] MEDS: TYLENOL 1000 MG PO ×2 (11:23→17:02)
[2024-12-12] MEDS: LIDOCAINE 4% PATCH TOPICAL (11:24)
[2024-12-12 12:49] LABS: Glucose - Point of Care 155 mg/dl (70-99)
[2024-12-12] MEDS: ZOFRAN 4 MG IV (13:02)
[2024-12-12] MEDS: NOVOLOG FLEXPEN-LOW RESISTANCE 1 UNITS SC (13:03)
[2024-12-12] MEDS: COLACE PO ×2 (13:03→20:36)
--- NOTE | 2024-12-12 13:19 | PTCARENOTE ---
Patient complaining of right knee pain 8 out of 10 while out of bed to chair. Discussed with hospitalist and Tramadol 25mg administered. Pain after Tramadol went down to a 6 out of 10. Patient developed nausea shortly after Tramadol administration
and was given Zofran 4mg. Patient became drowsy and Bipap therapy initiated . Patient is now back in bed with at bedside.
--- NOTE | 2024-12-12 15:35 | W.PN.HOSP.TC ---
Today's Communication/Plan
-
Xray R knee
prn pain control with topical patch, gels, Tylenol - avoiding narcs
PT/OT
continue BIPAP
follow pulm recs
follow cards recs
Assessment / Plan
Assessment / Plan
Assessment:
Acute on chronic respiratory failure with hypoxia + hypercapnia requiring BiPAP
Obesity Hypoventilation Syndrome
Compensatory chronic Metabolic alkalosis
- Patient is morbidly obese and component of CROW/OHS which makes patient very prone to have recurrence episode of hypercapnic respiratory failure
- Case discussed with pulmonology for potential evaluation of trilogy ventilator - apparently patient have only CPAP at home - BiPAP tried here and patient slept well - only major issue is patient feeling thristy from the drying out of mucosa and
cant take mask herself off to drink water, ? due to frozen shoulder
- Patient needs f/u in office to do sleep study for further evaluation
Anxiety/Depression contributing to above
- psych evaluation appreciated
- started on Zoloft 25mg daily
Acute on Chronic HFpEF
Acute on Chronic Hypoxemic Respiratory Failure secondary to the above
- CXR shows pulmonary edema, BNP elevated from prior.
- Continue IV Lasix - requires intensive monitoring of I/Os, weights, lytes
- GMDT: Aldactone/BB/Digoxin
- Echo done in July with normal LVEF and moderate .
- Cardiology following and help appreciated
Acute metabolic encephalopathy
Suspected from hypercapnic respiratory failure
- secondary to hypercapnia presumably
- CT head done in the ED without acute abnormality.
- remains on/off somnolent. Avoid sedatives/narcs
Asthma without Acute Exacerbation
- No evidence of wheezing on exam.
- Continue usual inhaled medications and follow for any changes.
Persistent Atrial Fibrillation with RVR
- continue Digoxin/BB
- wean dose of Cardizem
- Patient no longer on Eliquis per current med list (held previously due to hematuria).
Hematuria
- Initial UA contaminated, straight cath sample normal. Renal Bladder US - no stone/structural issues
- patient tells me that urology has requested patient to f/u in office but patient not able to do that so far.
Anemia of Chronic Disease
- Stable. Hgb is at/near known baseline.
- Follow for any changes.
DM-II
- Stable. Hold PO medications.
- Follow glucose and cover with SSI as needed.
- A1C 6.8
Hypothyroidism
- Continue current T4 replacement.
Hyperparathyroidism
- Continue Cinacalcet.
Chronic Venous Stasis Dermatitis
- Local care/Wound Care eval to lower extremities.
Morbid obesity
- complicating all aspects of care
- patient stated of on ozempic in the past
- discussed with daughter that would benefit with f/u with weight loss specialist post discharge
Chronic R knee pain
- check Xray
- apply lidocaine patch or Voltaren gel; avoiding narcs. Also Tylenol prn
DVT Prophylaxis: Lovenox
Code Status: Full
12/08 Dr. Cabrera Discussed with Patient Daughter over the Phone. Patient Daughter Concerned about Patient Requiring Repeated Admission for Heart Failure or Hypercapnia Respiratory Failure. Unfortunately with Patient Moderate Patient Will Remain at
Persistent Risk of Episodes of OHS/CROW Related Hypercarbic Respiratory Failure. Weight Loss Is [place] Although Patient Does Not Have Much of Capacity to Do Activity. Patient Aware of Weight Loss Physicians in the Area and I have encouraged daughter
to make patient appointment to see weight loss specialist.
Complex case with remains at risk of further pulmonary decline/encephalopathy/cardio-pulm arrest.
Anticipated Discharge: > 48 hours
Subjective/Interval History
-
Date of Service: December 12, 2024
reports R knee pain is limiting factor for PT
+ BM with streak of blood from known hemorrhoids
Objective Data
-
Labs:
Laboratory Results
12/12/24
04:36
WBC 10.5
Hgb 10.4 L
Hct 35.8 L
Plt Count 295
Sodium 139
Potassium 3.8
Chloride 91 L
Carbon Dioxide 44 H
BUN 24 H
Creatinine 0.8
Glucose 104 H
Calcium 9.4
Vital Signs:
Vital Signs
Temp Pulse Resp BP Pulse Ox
98.4 F 72 25 121/87 89
12/12/24 15:00 12/12/24 13:00 12/12/24 13:00 12/12/24 12:00 12/12/24 13:30
I&O
12/11/24 12/12/24 12/13/24
06:59 06:59 06:59
Intake Total 1210 / 1210 250 / 250 120 / 120
Output Total 600 / 600 2150 / 2150
Balance 610 / 610 -1900 / -1900 120 / 120
Physical Exam
-
General: No Apparent Distress
HEENT: Normocephalic and Atraumatic
Respiratory: Negative Wheezes
Cardiac: Regular Rhythm and S1/S2
GI: Soft and Nontender
Genito-urinary: No Costovertebral Tender
Neuro: AO x 3
Psych: Calm
Data Reviewed
-
Total Time Spent with Patient (in minutes): 42
Labs: Labs Reviewed by me
--- NOTE | 2024-12-12 15:53 | W.PN.CARDCBS ---
Today's Communication / Plan
-
Continue IV Lasix for now with close monitoring of renal function and bicarbonate
Impression / Plan
-
PCP: Dr. Lake
Card: Dr. Eitan Bullock
Impression:
Admitted with acute HFpEF
Multiple previous admissions for acute heart failure preserved EF, August 2024, July 2024, July 2024
Recent admission for ureteral stone and acute HF 08/11/24 until 08/18/24
Permanent atrial fibrillation
Acute HFpEF
Persistent Afib
8% burden on monitor 12/2023 and now persistent Afib since at least 07/01/24
Chronic Eliquis OAC, currently off due to vaginal bleeding and hematuria
CROW/OHS on nocturnal CPAP with 2 L NC as an outpatient
ILD
DM 2
Severe morbid obesity, BMI 50.3
Mild to moderate aortic stenosis
Hypertension
Hypercholesterolemia
Venous insufficiency
Depression
Multiple medical allergies
Echo 07/04/2024: hyperdynamic left ventricular systolic function ejection fraction 65 to 70%. Moderate aortic stenosis with peak and mean gradients of 40 and 21 with a calculated aortic valve area of 1 cm2. Trivial pericardial effusion and no
significant valvular disease overall unchanged from prior echocardiogram
Plan:
Volume status is improving with IV diuresis
Creatinine remains stable and weight is trending down
Continue Lasix and spironolactone for now but but monitor BMP closely with rising bicarbonate
Heart rate better controlled today in atrial fibrillation
Continue current diltiazem and metoprolol doses.
New to digoxin, but may not be necessary if heart rates are controlled with beta-mirian and calcium channel mirian
Eliquis stopped previously due to excessive bleeding
Discussed with patient's at bedside
Progress Note - [employer] Project Manager
Subjective
Date of Service: December 12, 2024
No acute overnight events. Patient resting comfortably at the time my evaluation.
Objective
Labs:
12/12/24 04:36
12/12/24 04:36
Labs
Hgb 10.4 g/dL (12.0-16.0) L 12/12/24 04:36
Hct 35.8 % (37.0-47.0) L 12/12/24 04:36
Plt Count 295 10^3/uL (130-400) 12/12/24 04:36
Sodium 139 mmol/L (135-145) 12/12/24 04:36
Potassium 3.8 mmol/L (3.5-5.1) 12/12/24 04:36
BUN 24 mg/dl (7-17) H 12/12/24 04:36
Creatinine 0.8 mg/dL (0.6-1.0) 12/12/24 04:36
Glucose 104 mg/dl (70-99) H 12/12/24 04:36
Vital Signs and I&O:
Vital Signs
Temp Pulse Resp BP Pulse Ox
98.4 F 72 25 121/87 89
12/12/24 15:00 12/12/24 13:00 12/12/24 13:00 12/12/24 12:00 12/12/24 13:30
Vital Signs
Temp Pulse Resp BP Pulse Ox
98.4 F 72 25 121/87 89
12/12/24 15:00 12/12/24 13:00 12/12/24 13:00 12/12/24 12:00 12/12/24 13:30
Intake & Output
12/10/24 12/11/24 12/12/24 12/13/24
06:59 06:59 06:59 06:59
Intake Total 320 / 320 1210 / 1210 250 / 250 120 / 120
Output Total 1250 / 1250 600 / 600 2150 / 2150
Balance -930 / -930 610 / 610 -1900 / -1900 120 / 120
Physical Exam
Physical Exam
Gen: NAD
HEENT: NC/AT, sclera anicteric
Neck: No JVD
CV: Irregularly irregular
Lungs: On BiPAP
Abd: S/ND
Ext: No LE edema
Skin: Warm, dry
Neuro: Non-focal
[2024-12-12] MEDS: OCEAN, SALINE MIST NASAL ×2 (16:01→20:39)
[2024-12-12] MEDS: LIPITOR 10 MG PO (17:02)
[2024-12-12] MEDS: SINGULAIR 10 MG PO (17:02)
[2024-12-12 17:10] LABS: Glucose - Point of Care 140 mg/dl (70-99)
--- NOTE | 2024-12-12 18:24 | PTCARENOTE ---
Patient received pain medicine this afternoon and became drowsy from it. Some residual drowsiness continues. Patient is oriented to person, place and time right now, she is answering questions appropriately but has sluggish response. Patient had
poor appetite for dinner, family bedside verbalizing concern regarding signs of CO2 retention. Contacted respiratory for Bipap application as per families request. Notified Dr. Sterling of drowsiness and familys concerns.
[2024-12-12] MEDS: DICLOFENAC 1% TOPICAL GEL TOPICAL (19:20)
[2024-12-12] MEDS: CARDIZEM CD PO (20:35)
[2024-12-12] MEDS: TOPROL XL PO (20:35)
[2024-12-12] MEDS: REMOVE LIDOCAINE PATCH REMOVE (20:37)
[2024-12-12] MEDS: DICLOFENAC 1% TOPICAL GEL 100 GRAM TOPICAL (20:38)
[2024-12-12] MEDS: TYLENOL PO (20:39)
[2024-12-12] MEDS: XALATAN OPHTHALMIC SOLUTION 1 DROP BOTH EYES (20:40)
[2024-12-12 21:47] LABS: Glucose - Point of Care 155 mg/dl (70-99)
[2024-12-13] VITALS (17 sets, daily range): BP systolic 106–132; BP diastolic 67–105; PULSE 2–79; BMI 46.9
[2024-12-13 04:22] LABS: Hematocrit 37.1 % (37.0-47.0); Hemoglobin 10.5 g/dL (12.0-16.0); Mean Corp Hgb Conc. 28.3 g/dL (33.0-37.0); Mean Corpuscular Volume 81.0 fL (81.0-99.0); Platelet Count 275 10^3/uL (130-400); Red Cell Dist. Width 18.5 % (11.5-14.5)
[2024-12-13 04:45] LABS: Blood Urea Nitrogen 37 mg/dl (7-17); Calcium 9.5 mg/dl (8.4-10.2); Chloride 91 mmol/L (98-107); Estimated Creatinine Clearance 56 ml/min; Glucose 105 mg/dl (70-99); Magnesium 2.2 mg/dl (1.6-2.3); Potassium 3.8 mmol/L (3.5-5.1); Sodium 139 mmol/L (135-145); eGFR 57.66
[2024-12-13 04:56] LABS: Carbon Dioxide 39 mmol/L (22-30)
--- NOTE | 2024-12-13 05:32 | PTCARENOTE ---
Patient remained on BIPAP overnight- was desatting to the 70s on BIPAP 16/8 3 liters. 02 on BIPAP increased to 6 liters and sp02 was maintaining above 88.% Patient was very lethargic at the beginning of the shift and unable to safely swallow pills.
As the shift went on, patient became more alert and refused turns and was very hesitant with care. Emotional support provided. Will continue to monitor.
[2024-12-13] MEDS: VENTOLIN NEBULES 2.5 MG INH (07:21)
[2024-12-13] MEDS: PULMICORT 0.25 MG INH ×2 (07:21→19:53)
[2024-12-13] MEDS: ASPIR LOW (ENTERIC COATED) 81 MG PO (07:47)
[2024-12-13] MEDS: TYLENOL 1000 MG PO ×3 (07:47→19:48)
[2024-12-13] MEDS: CARDIZEM CD 180 MG PO ×2 (07:47→19:48)
[2024-12-13] MEDS: ZOLOFT 25 MG PO (07:48)
[2024-12-13] MEDS: COLACE 100 MG PO ×2 (07:48→19:49)
[2024-12-13] MEDS: ALDACTONE 25 MG PO (07:48)
[2024-12-13] MEDS: TOPROL XL 50 MG PO ×2 (07:48→19:48)
[2024-12-13] MEDS: LOVENOX 40 MG SC ×2 (07:49→19:49)
[2024-12-13] MEDS: SENSIPAR 30 MG PO (07:49)
[2024-12-13] MEDS: ZYRTEC 10 MG PO (07:49)
[2024-12-13] MEDS: LASIX 80 MG IV ×2 (07:49→15:37)
[2024-12-13] MEDS: OCEAN, SALINE MIST NASAL ×3 (07:50→20:02)
[2024-12-13] MEDS: NOVOLOG FLEXPEN-LOW RESISTANCE SC ×2 (07:50→12:08)
[2024-12-13] MEDS: DICLOFENAC 1% TOPICAL GEL TOPICAL ×3 (07:50→18:08)
[2024-12-13] MEDS: MIRALAX PO (07:50)
[2024-12-13 07:51] LABS: Glucose - Point of Care 111 mg/dl (70-99)
[2024-12-13] MEDS: LIDOCAINE 4% PATCH 1 PATCH TOPICAL (07:53)
--- NOTE | 2024-12-13 10:08 | W.PN.CARDCBS ---
Today's Communication / Plan
-
Seems improved. Will continue IV Lasix for another 24 hours with spironolactone. Would consider discharge planning soon as she is close to her dry weight.
Continue Toprol, diltiazem, and digoxin for now. She is rate controlled.
May consider stopping digoxin upon discharge.
Bicarb is overall stable at 39. Continue to follow.
Impression / Plan
-
PCP: Dr. Lake
Card: Dr. Eitan Bullock
Impression:
Admitted with acute HFpEF
Multiple previous admissions for acute heart failure preserved EF, August 2024, July 2024, July 2024
Recent admission for ureteral stone and acute HF 08/11/24 until 08/18/24
Permanent atrial fibrillation
Acute HFpEF
Persistent Afib
8% burden on monitor 12/2023 and now persistent Afib since at least 07/01/24
Chronic Eliquis OAC, currently off due to vaginal bleeding and hematuria
CROW/OHS on nocturnal CPAP with 2 L NC as an outpatient
ILD
DM 2
Severe morbid obesity, BMI 50.3
Mild to moderate aortic stenosis
Hypertension
Hypercholesterolemia
Venous insufficiency
Depression
Multiple medical allergies
Echo 07/04/2024: hyperdynamic left ventricular systolic function ejection fraction 65 to 70%. Moderate aortic stenosis with peak and mean gradients of 40 and 21 with a calculated aortic valve area of 1 cm2. Trivial pericardial effusion and no
significant valvular disease overall unchanged from prior echocardiogram
Plan:
She has diuresed relatively well and weight is close to her dry weight. Will continue IV Lasix for another 24 hours along with spironolactone.
Would likely begin transitioning to oral Lasix in a.m.
Creatinine is at 1.0 and bicarb improved down to 39.
Heart rate better controlled today in atrial fibrillation
Continue current diltiazem and metoprolol doses.
New to digoxin, but may not be necessary if heart rates are controlled with beta-mirian and calcium channel mirian.
Myais stopped previously due to excessive bleeding. Hemoglobin overall stable in the 9-10 range
Discussed with patient's at bedside
Progress Note - Drag Seiner
Subjective
Date of Service: December 13, 2024
She is improving and subjectively says her breathing is better. Weight overall the same.
Objective
Labs:
12/13/24 04:05
12/13/24 04:05
Labs
Hgb 10.5 g/dL (12.0-16.0) L 12/13/24 04:05
Hct 37.1 % (37.0-47.0) 12/13/24 04:05
Plt Count 275 10^3/uL (130-400) 12/13/24 04:05
Sodium 139 mmol/L (135-145) 12/13/24 04:05
Potassium 3.8 mmol/L (3.5-5.1) 12/13/24 04:05
BUN 37 mg/dl (7-17) H 12/13/24 04:05
Creatinine 1.0 mg/dL (0.6-1.0) 12/13/24 04:05
Glucose 105 mg/dl (70-99) H 12/13/24 04:05
Vital Signs and I&O:
Vital Signs
Temp Pulse Resp BP Pulse Ox
97.7 F 87 20 106/67 87
12/13/24 07:46 12/13/24 10:00 12/13/24 10:00 12/13/24 10:00 12/13/24 08:39
Vital Signs
Temp Pulse Resp BP Pulse Ox
97.7 F 87 20 106/67 87
12/13/24 07:46 12/13/24 10:00 12/13/24 10:00 12/13/24 10:00 12/13/24 08:39
Intake & Output
12/11/24 12/12/24 12/13/24 12/14/24
06:59 06:59 06:59 06:59
Intake Total 1210 / 1210 250 / 250 170 / 170
Output Total 600 / 600 2150 / 2150 400 / 400
Balance 610 / 610 -1900 / -1900 -230 / -230
Physical Exam
Physical Exam
GEN: No distress, awake, Ox3
HEENT: supple, anicteric, mmm
LUNGS: scatt rhonchi
CV: Irreg, S1/S2, 1/6 syst LSB, no gallop
ABD: soft, BS+, NT/ND
EXT: No edema
NEURO: Gross non-focal
SKIN: chronic stasis changes
--- NOTE | 2024-12-13 10:12 | W.PN.PUL3 ---
Addendum entered and electronically signed by Karina Poole DO 12/13/24 16:16:
Updated daughter on the phone in terms of patient's reluctance to make a decision
She notes that she will be there in 15 minutes discussed this with her mother
Primary team has been able to change CODE STATUS to DNR
The daughter mentioned that the patient's has dementia as well and has been instructed to write things down as he has poor memory
I think the only reliable decision maker if the patient is considered not at capacity would be her daughter
Original Note:
Today's Communication / Plan
-
Worsening CO despite CPAP and BIPAP, should transfer to ICU for NIV but patient has refused
She also refuses to change her code status despite declining intubation, MV and trach placement
She has declined hospice consult
I have called and left VM with daughter, is present for this conversation
Await family decision making
Assessment
-
79-year-old F with PMHx of severe persistent asthma, CROW on CPAP bled with 3L/min, morbid obesity, chronic hypoxic respiratory failure (2-3L/min ATC), HTN, hypothyroidism, DM type II, Hx of right-sided UPJ stone s/p ureteral stent placement
(08/12/2024) c/b pyelonephritis with sepsis, chronic HFpEF, moderate aortic stenosis, psoriasis, glaucoma, and A-fib not on AC due to vaginal bleeding/hematuria who p/w worsening SOB. Patient's daughter called 911 due to worsening SOB for few days.
She was found to be minimally responsive. Initial serum HCO3 32, pCO2 79 with pH 7.32. ProBNP 1200. Initially afebrile, TN 90, BP 108/84, and SpO2 92% on 4L/min. Due to her blood gas, she placed onto BiPAP. CXR showed moderate acute interstitial
and alveolar cardiogenic pulmonary edema. CT head showed no acute intracranial pathology. Given 1mg IV bumex, and admitted to IMU with Pulmonary service consulted for additional management/recommendations.
Impression:
Acute on chronic respiratory failure with hypoxia + hypercapnia requiring BiPAP
Acute decompensated heart failure/acute on chronic HFpEF
A-fib with RVR - now rate controlled
Obesity hypoventilation syndrome
Metabolic alkalosis due to chronic hypercapnic respiratory failure
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
Severe persistent asthma - on budesonide + DuoNebs + Breo as outpatient
PFT 02/10/2024-persistent obstructive lung defect with normalization of moderate gas exchange capacity defect when accounting for alveolar volume
ILD/Hx of moderate restrictive lung disease (T% predicted, VC: 61% predicted, post-BD FVC: 1.45L / 58% predicted via PFT from 02/10/2024)
Hx of mosaic attenuation with significant bronchial wall thickening likely due to small airway disease with bronchiolitis (seen on CT chest 05/06/2020)
Severe CROW (AHI 86 with ben SpO2 67% via HSAT in 01/2018) noncompliant on PAP
Hypothyroidism
Psoriasis
HTN
HLD
Diverticulosis/IBS/Ulcerative colitis
Glaucoma
Rosacea
Fibrocystic breast
RLL cellulitis
Valvular heart disease with moderate
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
A-fib not on AC due to vaginal bleeding/hematuria
Significant morbid obesity (BMI: 48.8)
DM type II (HbA1c: 6.8 on 12/08/2024)
History of vaginal bleeding + hematuria exacerbated by Eliquis use (now off Eliquis)
Ovarian dermoid
Hx of right-sided UPJ stone s/p ureteral stent placement (08/12/2024) c/b pyelonephritis with sepsis
Plan
Unfortunately, patient has not followed up in the sleep clinic as recommended in the past--has declined sleep study testing
She has complex sleep disorder with significant sleep apnea, likely obesity hypoventilation syndrome
She has CO2 retention despite CPAP use/compliance as reported by patient and daughter
Last Modem report from OP reviewed in Feb 2024--showing 100% compliance AHI 9.6, setting of 9cm water
May be considered CPAP failure
CO2 retention may be due to many issues including OHS, HF, inappropriate O2 use at home--her hypoxemia is most likely related to severe RLD (IS effort <500mL)
Would need sleep study but she notes she 'cannot' get one out of fear of not having a bidet to use at the sleep center because she cannot wipe herself
Repeat ABG this AM showing worsening CO2 retention despite use of BIPAP (79 -> 82 -> 97)
I feel this is also BIPAP failure
We discussed transfer to ICU for NIV use but she has refused, is witness to this conversation
We also discussed being full code, she has declined intubation, mechanical ventilation, and tracheostomy but has also declined hospice
She also has a history of asthma, however she is not convinced the nebulizer or inhaler helps
She is severely sedentary, unable or unwilling to lose weight
Has been refusing turns, PT assessments
She continues to be diuresed although I am not sure this is her main issue
Echocardiogram from July 2024 with normal biventricular function, moderate aortic stenosis, PA pressure 36
proBNP 1200 <- 1360 <- 1430
Cardiology following
We discussed this is her 4th admission for similar in 6 mos
Will try Diamox today
Other etiologies to consider include profound deconditioning with functional neuromuscular limitations from extreme sedentary lifestyle
PT/OT on board but patient has declined numerous times in past
Patient also exhibiting significant anxiety, tearful throughout conversation
Psych consult appreciated--she is started on SSRI
I am concerned her lack of insight is hindering her decision making capacity
Will need to confirm that patient requires noninvasive volume ventilation due to OHS and COPD, bilevel has been considered and ruled out, including bilevel PAP's. Patient requires pressures greater than 30 cm which is not supported by bilevel VATS
due to body habitus. A traditional ventilator will exceed pressures greater than 30 cm with a maximum pressure of 50 cm
We will consult case management and consider transition from CPAP to BiPAP as she feels better with BiPAP that her home CPAP machine
If not able to obtain BIPAP based on her current requirements, will set up AVAPs
For now we will continue with nebulized therapy. Patient prefers inhaler therapy
No indication for steroids
Of note, in 2019 she had followed with Rheumatology with suspicion for vasculitis/GPA vs Sjogren's.
Had been started on prednisone at the time but this caused significant HTN, and she was rec'd by her licensing engineer to avoid steroids going forward.
I left [facility] for daughter today expressing my concerns
Will update care team
DVT ppx: LMWH
Family Discussions
Leonel- Code status: Full code. However I did review the options for tracheotomy if she progresses, mechanical ventilation if she progresses. She adamantly says no as does her
I encouraged them to discuss this together and confirm CODE STATUS
Zulema 12/11/24- I reviewed her high risk of respiratory failure as well today including trach placement. Updated care team on her care. Discussion is ongoing, but GOC would be helpful. We briefly discussed hospice as well if she does not wish to
continue her care moving forward.
12/12/24- I reviewed her lack of motivation to get OOB and rehab. I reviewed with her her refusal to get OOB/PT, her refusal to do sleep study, her refusal to perform IS. If he was not aware, he is now aware of her declining treatment and
not wanting to get better despite her claims.
Data:
CXR 12/07/2024:
1. Moderate acute interstitial and alveolar cardiogenic pulmonary edema.
2. Moderate cardiomegaly.
3. Small right pleural effusion.
4. Mild subsegmental atelectasis in the perihilar right mid lung.
5. Severe calcification in the aortic valve.
6. Severe calcific atherosclerotic plaque in the coronary arteries.
CT Chest 2019- IMPRESSION:
1. Findings suggestive of mosaic perfusion pattern throughout the lungs bilaterally which can be seen with chronic airways and/or vascular disease.
2. 0.6 cm pleural-based left lower lobe nodule. Follow-up noncontrast chest CT in 12 months is recommended.
3. Additional scattered small tree-in-bud nodules within the lower lungs bilaterally may reflect a superimposed mild infectious/inflammatory process.
4. No pulmonary fibrosis.
ECHO 07/04/24- Normal left ventricular wall thickness. Hyperdynamic left ventricular systolic function. 65-70% by visual assessment. Normal right ventricular size and function. Trace mitral regurgitation.
Moderate aortic stenosis. Peak/mean gradients across the aortic valve are 40/21 mmHg. Using an LVOT diameter of 1.8 cm. Mild tricuspid regurgitation. Trivial pericardial effusion. No significant change compared to prior echocardiogram
Total time spent today was 55 minutes for this encounter. Time includes reviewing laboratory test/imaging results, reviewing pertinent medical records, obtaining and reviewing medical history, performing an appropriate exam, ordering medications,
tests and procedures. Time also includes documentation of this encounter, coordinating patient care and communicating with other healthcare professionals. Total time does not include separately billed tests performed on this date of service.
Subjective Data
-
Date of Service:
Date of Service: December 13, 2024
Chief Complaint: Pulmonary Follow Up
Subjective:
More lethargic appearing this AM, lacking insight into her overall condition
BIPAP remains on and she is compliant, repeat ABG showing worsening Co2 retention
at bedside, is aware of the situation
Objective Data
Data Reviewed
Vital Signs / I&O / Oxygen:
Vital Signs
Temp Pulse Resp BP Pulse Ox
97.7 F 87 20 106/67 90
12/13/24 07:46 12/13/24 10:00 12/13/24 10:00 12/13/24 10:00 12/13/24 10:08
Intake and Output
12/12/24 12/13/24 12/14/24
06:59 06:59 06:59
Intake Total 250 / 250 170 / 170
Output Total 2150 / 2150 400 / 400
Balance -1900 / -1900 -230 / -230
SaO2 90
Nasal Cannula flow liters per 3
minute
Physical Exam
General: Respiratory Distress (Mild use of accessory muscles) and Other (morbidly obese, deconditioned appearing)
HEENT: Normocephalic, Anicteric and Other (Large neck, dry MM)
Cardiovascular: S1-S2, Regular Rhythm, Murmur (n), Rub (n) and Peripheral Edema (Chronic venous stasis changes)
Respiratory: Clear (very diminished, poor effort), Wheeze (n), Crackles (n), Rhonchi (n), Accessory Resp Muscle Use (Mild), Stridor (n) and Other (Poor inspiratory effort)
GI: Soft, Non Distended (Morbidly obese) and Non Tender
Neurology: Awake, Alert, Oriented, No Motor Deficits (Generally weak, right knee pain making difficult for hip flexor) and Depressed (lethargic appearing, depressed, anhedonic expression)
Skin: Cyanosis (n) and Jaundice (n)
Labs/Micro/Reports
Lab Data
12/13/24 04:05
12/13/24 04:05
[2024-12-13 11:01] LABS: B.E. 18.6 mmol/L; O2 Saturation % 92.0 % (94-98); PO2 60 mmHg (83-108)
[2024-12-13 11:07] LABS: HCO3 48.8 mmol/L (21-28); PCO2 97 mmHg (32-35)
[2024-12-13] MEDS: LANOXIN 125 MCG PO (12:08)
[2024-12-13 12:20] LABS: Glucose - Point of Care 178 mg/dl (70-99)
[2024-12-13] MEDS: NOVOLOG FLEXPEN-LOW RESISTANCE 1 UNITS SC ×2 (12:30→18:25)
--- NOTE | 2024-12-13 13:05 | PTCARENOTE ---
Dr. Poole and Dr. Sterling made aware that patient's CO2 is 97 and HCO3 is 48.8. Patient having increased confusion. Dr. Poole at bedside. Care ongoing.
--- NOTE | 2024-12-13 14:01 | W.PN.HOSP.TC ---
Today's Communication/Plan
-
continue prn BiPAP
continue IV Lasix
Assessment / Plan
Assessment / Plan
Assessment:
Acute on chronic respiratory failure with hypoxia + hypercapnia requiring BiPAP
Obesity Hypoventilation Syndrome
Compensatory chronic Metabolic alkalosis
- Patient is morbidly obese and component of CROW/OHS which makes patient very prone to have recurrence episode of hypercapnic respiratory failure
- Case discussed with pulmonology for potential evaluation of trilogy ventilator - apparently patient have only CPAP at home - BiPAP tried here and patient slept well - only major issue is patient feeling thristy from the drying out of mucosa and
cant take mask herself off to drink water, ? due to frozen shoulder
- Patient needs f/u in office to do sleep study for further evaluation
Anxiety/Depression contributing to above
- psych evaluation appreciated
- started on Zoloft 25mg daily
Acute on Chronic HFpEF
Acute on Chronic Hypoxemic Respiratory Failure secondary to the above
- CXR shows pulmonary edema, BNP elevated from prior.
- Continue IV Lasix - requires intensive monitoring of I/Os, weights, lytes
- GMDT: Aldactone/BB/Digoxin
- Echo done in July with normal LVEF and moderate .
- Cardiology following and help appreciated
Acute metabolic encephalopathy
Suspected from hypercapnic respiratory failure
- secondary to hypercapnia presumably
- CT head done in the ED without acute abnormality.
- remains on/off somnolent. Avoid sedatives/narcs
Asthma without Acute Exacerbation
- No evidence of wheezing on exam.
- Continue usual inhaled medications and follow for any changes.
Persistent Atrial Fibrillation with RVR
- continue Digoxin/BB
- wean dose of Cardizem
- Patient no longer on Eliquis per current med list (held previously due to hematuria).
Hematuria
- Initial UA contaminated, straight cath sample normal. Renal Bladder US - no stone/structural issues
- patient tells me that urology has requested patient to f/u in office but patient not able to do that so far.
Anemia of Chronic Disease
- Stable. Hgb is at/near known baseline.
- Follow for any changes.
DM-II
- Stable. Hold PO medications.
- Follow glucose and cover with SSI as needed.
- A1C 6.8
Hypothyroidism
- Continue current T4 replacement.
Hyperparathyroidism
- Continue Cinacalcet.
Chronic Venous Stasis Dermatitis
- Local care/Wound Care eval to lower extremities.
Morbid obesity
- complicating all aspects of care
- patient stated of on Ozempic in the past
- discussed with daughter that would benefit with f/u with weight loss specialist post discharge
Chronic R knee pain
- Xray: Moderate size suprapatellar effusion.
- apply lidocaine patch or Voltaren gel; avoiding narcs. Also Tylenol prn
DVT Prophylaxis: Lovenox
Code Status: DNR/DNI
12/08 Dr. Cabrera Discussed with Patient Daughter over the Phone. Patient Daughter Concerned about Patient Requiring Repeated Admission for Heart Failure or Hypercapnia Respiratory Failure. Unfortunately with Patient Moderate Patient Will Remain at
Persistent Risk of Episodes of OHS/CROW Related Hypercarbic Respiratory Failure. Weight Loss Is [place] Although Patient Does Not Have Much of Capacity to Do Activity. Patient Aware of Weight Loss Physicians in the Area and I have encouraged daughter
to make patient appointment to see weight loss specialist.
Complex case with remains at risk of further pulmonary decline/encephalopathy/cardio-pulm arrest.
Dispo: patient to discuss hospice with family.
Anticipated Discharge: > 48 hours
Subjective/Interval History
-
Date of Service: December 13, 2024
hypercapnic RF remains despite BIPAP
Patient considering hospice, has agreed to DNR
Objective Data
-
Labs:
Laboratory Results
12/13/24 12/13/24
04:05 10:51
WBC 8.1
Hgb 10.5 L
Hct 37.1
Plt Count 275
HCO3 48.8 H*
Sodium 139
Potassium 3.8
Chloride 91 L
Carbon Dioxide 39 H
BUN 37 H
Creatinine 1.0
Glucose 105 H
Calcium 9.5
Vital Signs:
Vital Signs
Temp Pulse Resp BP Pulse Ox
98.0 F 82 16 121/80 99
12/13/24 11:17 12/13/24 12:08 12/13/24 12:00 12/13/24 12:00 12/13/24 12:00
I&O
12/12/24 12/13/24 12/14/24
06:59 06:59 06:59
Intake Total 250 / 250 170 / 170
Output Total 2150 / 2150 400 / 400
Balance -1900 / -1900 -230 / -230
Physical Exam
-
General: No Apparent Distress and Morbidly Obese
HEENT: Normocephalic and Atraumatic
Respiratory: Negative Wheezes
Cardiac: Regular Rhythm and S1/S2
GI: Soft and Nontender
Musculoskeletal: No Edema
Neuro: AO x 3
Hematologic / Lymphatic: No Lymphadenopathy
Psych: Calm
Data Reviewed
-
Total Time Spent with Patient (in minutes): 51
Labs: Labs Reviewed by me
--- NOTE | 2024-12-13 15:05 | PTCARENOTE ---
Patient and patients tearful about patient's code status being a DNR. Pastoral care at bedside. Care ongoing.
--- NOTE | 2024-12-13 15:16 | CHAP ---
Emotional and spiritual support provided for Ms. Pace and at bedside. Stories of their life together shared. Prayer blanket given. I will come back up later to see if Mr. Pace wants to talk alone. Will follow as able.
--- NOTE | 2024-12-13 15:32 | PTCARENOTE ---
Patient AOx3. Patient is confused, forgetful, anxious, and lethargic. Patient opens eyes to voice. Bed alarm on and audible. 2L NC with SpO2 greater than goal of 88%. A fib on monitor. BP stable. Purewick draining cayla colored urine. Patient
refused Q2 turns. at bedside. Call smith within reach, bed in lowest position, and bed of wheels locked.
--- NOTE | 2024-12-13 16:11 | W.PN.UPDATE ---
Update Note
Progress Note Update
patient seen chart reviewed. spoke with nursing. spoke in person w d and . the patient was somnolent and said almost nothing. she opened her eyes once or twice only to close them again. after a discussion with dr yan has decided
that he does not believe his would want a tracheostomy . d is of the same opinion. they both feel that at this point they should return home likely w hospice. have ordered hospice consult. mr alamo expressed his grief re losing his of 40
years. he expected that he would first not mrs alamo. he is overwhelmed with all of the things he now must think about. encouraged him to focus on one thing at a time and to allow his d to help him. d told him she would be there to help him sort
things out. both were reassured that hospice organization would help them sort out what things they might need at home and help to arrange getting those things. they had questions like 'what do we do in the middle of the night if she is in distress
and we can't come to ?' urged them to write down their questions for hospice nurse to answer. will dc zoloft at this point. d asked if it where necessary to continue zoloft at this point and it is my impression that it is not necessary. will see
family in am to offer support.
--- NOTE | 2024-12-13 17:26 | CM ---
Patient with Dx HF, Obesity Hypoventilation Syndrome.
Spoke with Dr Poole, if BIPAP is needed for d/c her office will order through [facility].
[2024-12-13 18:05] LABS: Glucose - Point of Care 155 mg/dl (70-99)
[2024-12-13] MEDS: LIPITOR 10 MG PO (18:25)
[2024-12-13] MEDS: SINGULAIR 10 MG PO (18:25)
[2024-12-13] MEDS: REMOVE LIDOCAINE PATCH 1 PATCH REMOVE (19:49)
[2024-12-13] MEDS: DICLOFENAC 1% TOPICAL GEL 100 GRAM TOPICAL (19:49)
[2024-12-13] MEDS: XALATAN OPHTHALMIC SOLUTION 1 DROP BOTH EYES (19:49)
[2024-12-13 21:29] LABS: Glucose - Point of Care 139 mg/dl (70-99)
[2024-12-14] VITALS (17 sets, daily range): BP systolic 81–127; BP diastolic 61–89; PULSE 2–85; BMI 47.1
[2024-12-14 03:45] LABS: Hematocrit 38.4 % (37.0-47.0); Hemoglobin 10.6 g/dL (12.0-16.0); Mean Corp Hgb Conc. 27.6 g/dL (33.0-37.0); Mean Corpuscular Volume 82.9 fL (81.0-99.0); Platelet Count 284 10^3/uL (130-400); Red Cell Dist. Width 18.2 % (11.5-14.5)
[2024-12-14 04:03] LABS: Blood Urea Nitrogen 43 mg/dl (7-17); Calcium 9.8 mg/dl (8.4-10.2); Chloride 90 mmol/L (98-107); Estimated Creatinine Clearance 56 ml/min; Glucose 95 mg/dl (70-99); Potassium 4.2 mmol/L (3.5-5.1); Sodium 139 mmol/L (135-145); eGFR 57.66
[2024-12-14 04:13] LABS: Carbon Dioxide 44 mmol/L (22-30)
--- NOTE | 2024-12-14 05:23 | PTCARENOTE ---
Patient remained on the BIPAP overnight 16/8 6 liters. Patient anxious with multiple complaints. Emotional support provided. Plan for hospice consult today. Will continue to monitor.
[2024-12-14] MEDS: PULMICORT 0.25 MG INH ×2 (07:15→19:21)
[2024-12-14] MEDS: VENTOLIN NEBULES 2.5 MG INH ×2 (07:15→19:20)
[2024-12-14] MEDS: OCEAN, SALINE MIST NASAL ×2 (07:27→15:43)
[2024-12-14] MEDS: DICLOFENAC 1% TOPICAL GEL TOPICAL ×4 (07:27→20:18)
[2024-12-14 08:03] LABS: Glucose - Point of Care 93 mg/dl (70-99)
[2024-12-14] MEDS: NOVOLOG FLEXPEN-LOW RESISTANCE SC ×3 (08:11→16:53)
[2024-12-14] MEDS: MIRALAX PO (08:17)
[2024-12-14] MEDS: CARDIZEM CD 180 MG PO ×2 (08:17→20:16)
[2024-12-14] MEDS: SENSIPAR 30 MG PO (08:17)
[2024-12-14] MEDS: COLACE PO (08:17)
[2024-12-14] MEDS: TOPROL XL 50 MG PO ×2 (08:17→20:15)
[2024-12-14] MEDS: ALDACTONE 25 MG PO (08:17)
[2024-12-14] MEDS: ASPIR LOW (ENTERIC COATED) 81 MG PO (08:17)
[2024-12-14] MEDS: ZYRTEC 10 MG PO (08:17)
[2024-12-14] MEDS: TYLENOL 1000 MG PO ×3 (08:18→20:16)
[2024-12-14] MEDS: LOVENOX 40 MG SC ×2 (08:18→20:17)
[2024-12-14] MEDS: LASIX 80 MG IV ×2 (08:18→17:03)
[2024-12-14] MEDS: LIDOCAINE 4% PATCH 1 PATCH TOPICAL ×2 (08:19→17:03)
--- NOTE | 2024-12-14 09:20 | W.PN.PUL3 ---
Today's Communication / Plan
-
Patient is now DNR, she has declined trach and has declined NIV/AVAPs
Daughter and patient agree to go home on hospice, consult placed/arrangements are made for d/c tomorrow
BIPAP set up if possible per CM (BIPAP settings are 16/8, RR 20)
We will sign off at this time, please call with questions
Assessment
-
79-year-old F with PMHx of severe persistent asthma, CRWO on CPAP bled with 3L/min, morbid obesity, chronic hypoxic respiratory failure (2-3L/min ATC), HTN, hypothyroidism, DM type II, Hx of right-sided UPJ stone s/p ureteral stent placement
(08/12/2024) c/b pyelonephritis with sepsis, chronic HFpEF, moderate aortic stenosis, psoriasis, glaucoma, and A-fib not on AC due to vaginal bleeding/hematuria who p/w worsening SOB. Patient's daughter called 911 due to worsening SOB for few days.
She was found to be minimally responsive. Initial serum HCO3 32, pCO2 79 with pH 7.32. ProBNP 1200. Initially afebrile, MO 90, BP 108/84, and SpO2 92% on 4L/min. Due to her blood gas, she placed onto BiPAP. CXR showed moderate acute interstitial
and alveolar cardiogenic pulmonary edema. CT head showed no acute intracranial pathology. Given 1mg IV bumex, and admitted to IMU with Pulmonary service consulted for additional management/recommendations.
Impression:
Acute on chronic respiratory failure with hypoxia + hypercapnia requiring BiPAP
Acute decompensated heart failure/acute on chronic HFpEF
A-fib with RVR - now rate controlled
Obesity hypoventilation syndrome
Metabolic alkalosis due to chronic hypercapnic respiratory failure
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
Severe persistent asthma - on budesonide + DuoNebs + Breo as outpatient
PFT 02/10/2024-persistent obstructive lung defect with normalization of moderate gas exchange capacity defect when accounting for alveolar volume
ILD/Hx of moderate restrictive lung disease (T% predicted, VC: 61% predicted, post-BD FVC: 1.45L / 58% predicted via PFT from 02/10/2024)
Hx of mosaic attenuation with significant bronchial wall thickening likely due to small airway disease with bronchiolitis (seen on CT chest 05/06/2020)
Severe CROW (AHI 86 with ben SpO2 67% via HSAT in 01/2018) noncompliant on PAP
Hypothyroidism
Psoriasis
HTN
HLD
Diverticulosis/IBS/Ulcerative colitis
Glaucoma
Rosacea
Fibrocystic breast
RLL cellulitis
Valvular heart disease with moderate
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
A-fib not on AC due to vaginal bleeding/hematuria
Significant morbid obesity (BMI: 48.8)
DM type II (HbA1c: 6.8 on 12/08/2024)
History of vaginal bleeding + hematuria exacerbated by Eliquis use (now off Eliquis)
Ovarian dermoid
Hx of right-sided UPJ stone s/p ureteral stent placement (08/12/2024) c/b pyelonephritis with sepsis
Plan
Unfortunately, patient has not followed up in the sleep clinic as recommended in the past--has declined sleep study testing
She has complex sleep disorder with significant sleep apnea, likely obesity hypoventilation syndrome
She has CO2 retention despite CPAP use/compliance as reported by patient and daughter
Last Modem report from OP reviewed in Feb 2024--showing 100% compliance AHI 9.6, setting of 9cm water
Considered CPAP failure
CO2 retention may be due to many issues including OHS, HF, inappropriate O2 use at home--her hypoxemia is most likely related to severe RLD (IS effort <500mL)
Would need sleep study but she notes she 'cannot' get one out of fear of not having a bidet to use at the sleep center because she cannot wipe herself
Repeat ABG this AM showing worsening CO2 retention despite use of BIPAP (79 -> 82 -> 97)
I feel this is also BIPAP failure
We discussed transfer to ICU for NIV use but she has refused, is witness to this conversation
We also discussed being full code, she has declined intubation, mechanical ventilation, and tracheostomy
She has now been changed to DNR status, has declined tracheostomy
She has declined NIV/AVAPs
She also has a history of asthma, however she is not convinced the nebulizer or inhaler helps
She is severely sedentary, unable or unwilling to lose weight
Has been refusing turns, PT assessments
She continues to be diuresed although I am not sure this is her main issue
Echocardiogram from July 2024 with normal biventricular function, moderate aortic stenosis, PA pressure 36
proBNP 1200 <- 1360 <- 1430
Cardiology following
We discussed this is her 4th admission for similar in 6 mos
Diamox is considered but likely futile
Other etiologies to consider include profound deconditioning with functional neuromuscular limitations from extreme sedentary lifestyle
PT/OT on board but patient has declined numerous times in past
Patient also exhibiting significant anxiety, tearful throughout conversation
Psych consult appreciated--she is started on SSRI
I am concerned her lack of insight is hindering her decision making capacity
For now we will continue with nebulized therapy. Patient prefers inhaler therapy
No indication for steroids
Of note, in 2019 she had followed with Rheumatology with suspicion for vasculitis/GPA vs Sjogren's.
Had been started on prednisone at the time but this caused significant HTN, and she was rec'd by her peanut salter to avoid steroids going forward.
Hospice consult placed--family deciding to go home on hospice
They still wish for home BIPAP set up, will d/w CM
DVT ppx: LMWH
Family Discussions
Leonel- Code status: Full code. However I did review the options for tracheotomy if she progresses, mechanical ventilation if she progresses. She adamantly says no as does her
I encouraged them to discuss this together and confirm CODE STATUS
Zulema 12/11/24- I reviewed her high risk of respiratory failure as well today including trach placement. Updated care team on her care. Discussion is ongoing, but [facility] would be helpful. We briefly discussed hospice as well if she does not wish to
continue her care moving forward.
12/12/24- I reviewed her lack of motivation to get OOB and rehab. I reviewed with her her refusal to get OOB/PT, her refusal to do sleep study, her refusal to perform IS. If he was not aware, he is now aware of her declining treatment and
not wanting to get better despite her claims.
Data:
CXR 12/07/2024:
1. Moderate acute interstitial and alveolar cardiogenic pulmonary edema.
2. Moderate cardiomegaly.
3. Small right pleural effusion.
4. Mild subsegmental atelectasis in the perihilar right mid lung.
5. Severe calcification in the aortic valve.
6. Severe calcific atherosclerotic plaque in the coronary arteries.
CT Chest 2019- IMPRESSION:
1. Findings suggestive of mosaic perfusion pattern throughout the lungs bilaterally which can be seen with chronic airways and/or vascular disease.
2. 0.6 cm pleural-based left lower lobe nodule. Follow-up noncontrast chest CT in 12 months is recommended.
3. Additional scattered small tree-in-bud nodules within the lower lungs bilaterally may reflect a superimposed mild infectious/inflammatory process.
4. No pulmonary fibrosis.
ECHO 07/04/24- Normal left ventricular wall thickness. Hyperdynamic left ventricular systolic function. 65-70% by visual assessment. Normal right ventricular size and function. Trace mitral regurgitation.
Moderate aortic stenosis. Peak/mean gradients across the aortic valve are 40/21 mmHg. Using an LVOT diameter of 1.8 cm. Mild tricuspid regurgitation. Trivial pericardial effusion. No significant change compared to prior echocardiogram
Total time spent today was 50 minutes for this encounter. Time includes reviewing laboratory test/imaging results, reviewing pertinent medical records, obtaining and reviewing medical history, performing an appropriate exam, ordering medications,
tests and procedures. Time also includes documentation of this encounter, coordinating patient care and communicating with other healthcare professionals. Total time does not include separately billed tests performed on this date of service.
Subjective Data
-
Date of Service:
Date of Service: December 14, 2024
Chief Complaint: Pulmonary Follow Up
Subjective:
No new complaints, using BIPAP intermittently
Daughter at bedside, they are in agreement to home hospice
Objective Data
Data Reviewed
Vital Signs / I&O / Oxygen:
Vital Signs
Temp Pulse Resp BP Pulse Ox
98.1 F 102 18 110/80 92
12/14/24 07:44 12/14/24 08:18 12/14/24 07:19 12/14/24 08:18 12/14/24 07:19
Intake and Output
12/13/24 12/14/24 12/15/24
06:59 06:59 06:59
Intake Total 170 / 170 960 / 960
Output Total 400 / 400 650 / 650
Balance -230 / -230 310 / 310
SaO2 92
Nasal Cannula flow liters per 2
minute
Physical Exam
General: Respiratory Distress (Mild use of accessory muscles) and Other (morbidly obese, deconditioned appearing)
HEENT: Normocephalic, Anicteric and Other (Large neck, dry MM)
Cardiovascular: S1-S2, Regular Rhythm, Murmur (n), Rub (n) and Peripheral Edema (Chronic venous stasis changes)
Respiratory: Clear (very diminished, poor effort), Wheeze (n), Crackles (n), Rhonchi (n), Accessory Resp Muscle Use (Mild), Stridor (n) and Other (Poor inspiratory effort)
GI: Soft, Non Distended (Morbidly obese) and Non Tender
Neurology: Awake, Alert, Oriented, No Motor Deficits (Generally weak, right knee pain making difficult for hip flexor) and Depressed (lethargic appearing, depressed, anhedonic expression)
Skin: Cyanosis (n) and Jaundice (n)
Labs/Micro/Reports
Lab Data
12/14/24 03:11
12/14/24 03:11
Laboratory Results
12/13/24
10:51
pH 7.31 L
pCO2 97 H*
pO2 60 L
HCO3 48.8 H*
O2 Delivery Level
--- NOTE | 2024-12-14 09:30 | PTCARENOTE ---
Dr. Sterling made aware that patient was saturated in bloody urine and had a blood clot. No new orders at this time. Care ongoing.
--- NOTE | 2024-12-14 10:09 | HOSPNOTE ---
Addendum entered by Kendra Spencer RN 12/14/24 12:12:
Spoke with patient and daughter about home hospice. The daughter feels that the patient will do much better at home and is requesting that a Bipap be ordered. I am checking with our equipment company. The family is in agreement with hospice, however
I feel is not realistic about the patient's present status and how critically ill the patient is. I will order equipment needed for the patient to go home tomorrow 12/15 with hospice. OOH DNR needed on chart and transport is needed. I will update
Attending and CM.
Original Note:
Hospice referral received and will discuss with family. More information to follow.
[2024-12-14] MEDS: LANOXIN 125 MCG PO (11:24)
[2024-12-14 11:30] LABS: Glucose - Point of Care 197 mg/dl (70-99)
--- NOTE | 2024-12-14 11:49 | W.PN.UPDATE ---
Update Note
Progress Note Update
chart reviewed. spoke with ms wilber zamora from hospice. family at bedside. the patient was more awake than yesterday. grandchildren in the room seemed to give her genuine pleasure. she is slated to go home tomorrow on hospice. psych will sign
off at this point. zoloft was dc'ed yesterday.
--- NOTE | 2024-12-14 13:49 | CM ---
Addendum entered by Stefanie Deleon 12/14/24 13:58:
CM reviewed IMM with patient daughter and she will complete IMM and provide for chart. All questions addressed. Patient does not have any steps to enter the home, ramp access per daughter.
Original Note:
Patient seen at bedside in IMU. Patient for discharge home with hospice ([facility]) tomorrow with Bipap per hospice nurse. CM will place DNR form on chart and patient for transfer home tomorrow requested time for discharge is 10-11am. CM will continue
to follow for discharge planning needs.
Plan; home with [facility] hospice.
--- NOTE | 2024-12-14 15:42 | PTCARENOTE ---
Patient AOx3. Patient is confused, forgetful, anxious, and lethargic. Patient opens eyes to voice. Bed alarm on and audible. 2L NC with SpO2 greater than goal of 88%. A fib on monitor. BP stable. Purewick draining cayla colored urine. and
daughter at bedside and updated on plan of care. Call smith within reach, bed in lowest position, and bed of wheels locked.
--- NOTE | 2024-12-14 15:52 | W.PN.CARDCBS ---
Today's Communication / Plan
-
Remains on oxygen
Plan is for home hospice on 12/15
Will change to Lasix 80 mg p.o. twice daily in a.m.
Impression / Plan
-
PCP: Dr. Lake
Card: Dr. Eitan Bullock
Impression:
Admitted with acute HFpEF
Multiple previous admissions for acute heart failure preserved EF, August 2024, July 2024, July 2024
Recent admission for ureteral stone and acute HF 08/11/24 until 08/18/24
Permanent atrial fibrillation
Acute HFpEF
Persistent Afib
8% burden on monitor 12/2023 and now persistent Afib since at least 07/01/24
Chronic Eliquis OAC, currently off due to vaginal bleeding and hematuria
CROW/OHS on nocturnal CPAP with 2 L NC as an outpatient
ILD
DM 2
Severe morbid obesity, BMI 50.3
Mild to moderate aortic stenosis
Hypertension
Hypercholesterolemia
Venous insufficiency
Depression
Multiple medical allergies
Echo 07/04/2024: hyperdynamic left ventricular systolic function ejection fraction 65 to 70%. Moderate aortic stenosis with peak and mean gradients of 40 and 21 with a calculated aortic valve area of 1 cm2. Trivial pericardial effusion and no
significant valvular disease overall unchanged from prior echocardiogram
Plan:
She appears improved but remains on oxygen
Plan is for home hospice on 12/15
Will change to Lasix 80 mg p.o. twice daily on 12/15
Heart rate controlled in A-fib. Continue dig and metoprolol
Eliquis stopped previously due to excessive bleeding. Hemoglobin overall stable in the 9-10 range
Discussed with patient's at bedside
Progress Note - Set Up [employer]
Subjective
Date of Service: December 14, 2024
No complaints. Plan is for home hospice on 12/15
Objective
Labs:
12/14/24 03:11
12/14/24 03:11
Labs
Hgb 10.6 g/dL (12.0-16.0) L 12/14/24 03:11
Hct 38.4 % (37.0-47.0) 12/14/24 03:11
Plt Count 284 10^3/uL (130-400) 12/14/24 03:11
Sodium 139 mmol/L (135-145) 12/14/24 03:11
Potassium 4.2 mmol/L (3.5-5.1) 12/14/24 03:11
BUN 43 mg/dl (7-17) H 12/14/24 03:11
Creatinine 1.0 mg/dL (0.6-1.0) 12/14/24 03:11
Glucose 95 mg/dl (70-99) 12/14/24 03:11
Vital Signs and I&O:
Vital Signs
Temp Pulse Resp BP Pulse Ox
98.2 F 80 13 90/61 89
12/14/24 11:13 12/14/24 14:00 12/14/24 14:00 12/14/24 14:00 12/14/24 14:00
Vital Signs
Temp Pulse Resp BP Pulse Ox
98.2 F 80 13 90/61 89
12/14/24 11:13 12/14/24 14:00 12/14/24 14:00 12/14/24 14:00 12/14/24 14:00
Intake & Output
12/12/24 12/13/24 12/14/24 12/15/24
06:59 06:59 06:59 06:59
Intake Total 250 / 250 170 / 170 960 / 960 480 / 480
Output Total 2150 / 2150 400 / 400 650 / 650
Balance -1900 / -1900 -230 / -230 310 / 310 480 / 480
Physical Exam
Physical Exam
General: Well developed, well nourished in NAD.
Neck: Supple, no JVD, HJR, carotids +2 B/L, no bruits bilaterally.
Heart: Non displaced PMI, irregular, no murmurs, No S3, S4, no rubs.
Lungs: Scattered rhonchi
Extremities: No clubbing, cyanosis or edema bilaterally.
Neuro: Grossly nonfocal, awake, alert and oriented x3.
--- NOTE | 2024-12-14 16:25 | W.PN.HOSP.TC ---
Today's Communication/Plan
-
home/hospice with family on 12/15
Assessment / Plan
Assessment / Plan
Assessment:
Acute on chronic respiratory failure with hypoxia + hypercapnia requiring BiPAP
Obesity Hypoventilation Syndrome
Compensatory chronic Metabolic alkalosis
- Patient is morbidly obese and component of CROW/OHS which makes patient very prone to have recurrence episode of hypercapnic respiratory failure
- Case discussed with pulmonary. Patient has failed CPAP, and BiPAP. Has declined NIV trial. Has declined intubation/vent/trach
- Patient has agreed to home hospice
Anxiety/Depression contributing to above
- psych evaluation appreciated
Acute on Chronic HFpEF
Acute on Chronic Hypoxemic Respiratory Failure secondary to the above
- CXR shows pulmonary edema, BNP elevated from prior.
- Continue IV Lasix - requires intensive monitoring of I/Os, weights, lytes
- GMDT: Aldactone/BB/Digoxin
- Echo done in July with normal LVEF and moderate .
- Cardiology following and help appreciated
Acute metabolic encephalopathy
Suspected from hypercapnic respiratory failure
- secondary to hypercapnia presumably
- CT head done in the ED without acute abnormality.
- remains on/off somnolent. Avoid sedatives/narcs
Asthma without Acute Exacerbation
- No evidence of wheezing on exam.
- Continue usual inhaled medications and follow for any changes.
Persistent Atrial Fibrillation with RVR
- continue Digoxin/BB
- wean dose of Cardizem
- Patient no longer on Eliquis per current med list (held previously due to hematuria).
Hematuria
- Initial UA contaminated, straight cath sample normal. Renal Bladder US - no stone/structural issues
- patient tells me that urology has requested patient to f/u in office but patient not able to do that so far.
Anemia of Chronic Disease
- Stable. Hgb is at/near known baseline.
- Follow for any changes.
DM-II
- Stable. Hold PO medications.
- Follow glucose and cover with SSI as needed.
- A1C 6.8
Hypothyroidism
- Continue current T4 replacement.
Hyperparathyroidism
- Continue Cinacalcet.
Chronic Venous Stasis Dermatitis
- Local care/Wound Care eval to lower extremities.
Morbid obesity
- complicating all aspects of care
Chronic R knee pain
- Xray: Moderate size suprapatellar effusion.
- apply lidocaine patch or Voltaren gel; avoiding narcs. Also Tylenol prn
DVT Prophylaxis: Lovenox
Code Status: DNR/DNI
12/08 Dr. Cabrera Discussed with Patient Daughter over the Phone. Patient Daughter Concerned about Patient Requiring Repeated Admission for Heart Failure or Hypercapnia Respiratory Failure. Unfortunately with Patient Moderate Patient Will Remain at
Persistent Risk of Episodes of OHS/CROW Related Hypercarbic Respiratory Failure. Weight Loss Is [place] Although Patient Does Not Have Much of Capacity to Do Activity. Patient Aware of Weight Loss Physicians in the Area and I have encouraged daughter
to make patient appointment to see weight loss specialist.
Complex case with remains at risk of further pulmonary decline/encephalopathy/cardio-pulm arrest.
Dispo: home/hospice with family on 12/15
Anticipated Discharge: Within 24 hours
Subjective/Interval History
-
Date of Service: December 14, 2024
resting comfortably
now has agreed to hospice
Objective Data
-
Vital Signs:
Vital Signs
Temp Pulse Resp BP Pulse Ox
97.1 F 80 13 90/61 89
12/14/24 16:11 12/14/24 14:00 12/14/24 14:00 12/14/24 14:00 12/14/24 14:00
I&O
12/13/24 12/14/24 12/15/24
06:59 06:59 06:59
Intake Total 170 / 170 960 / 960 480 / 480
Output Total 400 / 400 650 / 650
Balance -230 / -230 310 / 310 480 / 480
Physical Exam
-
General: Morbidly Obese
HEENT: Normocephalic and Atraumatic
Respiratory: Negative Wheezes
Cardiac: Regular Rhythm and S1/S2
GI: Soft
Neuro: AO x 3
Psych: Calm
Data Reviewed
-
Total Time Spent with Patient (in minutes): 42
Labs: Labs Reviewed by me
[2024-12-14 16:51] LABS: Glucose - Point of Care 118 mg/dl (70-99)
[2024-12-14] MEDS: LIPITOR 10 MG PO (17:02)
[2024-12-14] MEDS: SINGULAIR 10 MG PO (17:02)
[2024-12-14] MEDS: COLACE 100 MG PO (20:16)
[2024-12-14] MEDS: XALATAN OPHTHALMIC SOLUTION 1 DROP BOTH EYES (20:16)
[2024-12-14] MEDS: OCEAN, SALINE MIST 50 SPRAYS NASAL (20:17)
[2024-12-14] MEDS: REMOVE LIDOCAINE PATCH 1 PATCH REMOVE (20:17)
[2024-12-14 22:27] LABS: Glucose - Point of Care 178 mg/dl (70-99)
[2024-12-15] VITALS (7 sets, daily range): BP systolic 119–152; BP diastolic 72–100; BMI 47.0
--- NOTE | 2024-12-15 04:58 | PTCARENOTE ---
No acute events overnight. Patient remained on the BIPAP. Plan for patient to go home on hospice with family today. Ambulance medicinal plant picker at 1030. Emotional support provided to patient overnight. Will continue to monitor.
[2024-12-15] MEDS: PULMICORT 0.25 MG INH (05:57)
[2024-12-15] MEDS: LOVENOX 40 MG SC (07:53)
[2024-12-15] MEDS: LIDOCAINE 4% PATCH 1 PATCH TOPICAL ×2 (07:53)
[2024-12-15] MEDS: MIRALAX 17 GRAMS PO (07:54)
[2024-12-15] MEDS: TOPROL XL 50 MG PO (07:57)
[2024-12-15] MEDS: ASPIR LOW (ENTERIC COATED) 81 MG PO (07:57)
[2024-12-15] MEDS: TYLENOL 1000 MG PO (07:57)
[2024-12-15] MEDS: LASIX 80 MG PO (07:57)
[2024-12-15] MEDS: COLACE 100 MG PO (07:58)
[2024-12-15] MEDS: SENSIPAR 30 MG PO (07:58)
[2024-12-15] MEDS: CARDIZEM CD 180 MG PO (07:58)
[2024-12-15] MEDS: ALDACTONE 25 MG PO (07:58)
[2024-12-15] MEDS: DICLOFENAC 1% TOPICAL GEL TOPICAL (07:58)
[2024-12-15] MEDS: ZYRTEC 10 MG PO (07:58)
[2024-12-15] MEDS: OCEAN, SALINE MIST 50 SPRAYS NASAL (08:01)
[2024-12-15 08:02] LABS: Glucose - Point of Care 111 mg/dl (70-99)
[2024-12-15] MEDS: NOVOLOG FLEXPEN-LOW RESISTANCE SC (08:02)
--- NOTE | 2024-12-15 10:01 | W.PN.HOSP.TC ---
Today's Communication/Plan
-
dc home hospice
Assessment / Plan
Assessment / Plan
Assessment:
Acute on chronic respiratory failure with hypoxia + hypercapnia requiring BiPAP
Obesity Hypoventilation Syndrome
Compensatory chronic Metabolic alkalosis
- Patient is morbidly obese and component of CROW/OHS which makes patient very prone to have recurrence episode of hypercapnic respiratory failure
- Case discussed with pulmonary. Patient has failed CPAP, and BiPAP. Has declined NIV trial. Has declined intubation/vent/trach
- Patient has agreed to home hospice
Anxiety/Depression contributing to above
- psych evaluation appreciated
Acute on Chronic HFpEF
Acute on Chronic Hypoxemic Respiratory Failure secondary to the above
- CXR shows pulmonary edema, BNP elevated from prior.
- s/p IV Lasix and can be on oral lasix at home for comfort
- GMDT: Aldactone/BB/Digoxin
- Echo done in July with normal LVEF and moderate .
- Cardiology following and help appreciated
Acute metabolic encephalopathy
Suspected from hypercapnic respiratory failure
- secondary to hypercapnia presumably
- CT head done in the ED without acute abnormality.
- remains on/off somnolent. Avoid sedatives/narcs
Asthma without Acute Exacerbation
- No evidence of wheezing on exam.
- Continue usual inhaled medications and follow for any changes.
Persistent Atrial Fibrillation with RVR
- continue Digoxin/BB
- wean dose of Cardizem
- Patient no longer on Eliquis per current med list (held previously due to hematuria).
Hematuria
- Initial UA contaminated, straight cath sample normal. Renal Bladder US - no stone/structural issues
- patient tells me that urology has requested patient to f/u in office but patient not able to do that so far.
Anemia of Chronic Disease
- Stable. Hgb is at/near known baseline.
- Follow for any changes.
DM-II
- Stable. Hold PO medications.
- Follow glucose and cover with SSI as needed.
- A1C 6.8
Hypothyroidism
- Continue current T4 replacement.
Hyperparathyroidism
- Continue Cinacalcet.
Chronic Venous Stasis Dermatitis
- Local care/Wound Care eval to lower extremities.
Morbid obesity
- complicating all aspects of care
Chronic R knee pain
- Xray: Moderate size suprapatellar effusion.
- apply lidocaine patch or Voltaren gel; avoiding narcs. Also Tylenol prn
DVT Prophylaxis: Lovenox
Code Status: DNR/DNI
12/08 Dr. Cabrera Discussed with Patient Daughter over the Phone. Patient Daughter Concerned about Patient Requiring Repeated Admission for Heart Failure or Hypercapnia Respiratory Failure. Unfortunately with Patient Moderate Patient Will Remain at
Persistent Risk of Episodes of OHS/CROW Related Hypercarbic Respiratory Failure. Weight Loss Is [place] Although Patient Does Not Have Much of Capacity to Do Activity. Patient Aware of Weight Loss Physicians in the Area and I have encouraged daughter
to make patient appointment to see weight loss specialist.
Complex case with remains at risk of further pulmonary decline/encephalopathy/cardio-pulm arrest.
Dispo: home/hospice with family on 12/15
More than 30 minutes spent in discharge including
Final examination of the patient
Summarizing hospital stay
Instructions for continuing care to all relevant caregivers
Preparation of discharge records, prescriptions, and referral forms
Total time spent (in minutes): 41
Anticipated Discharge: Today
Subjective/Interval History
-
Date of Service: December 15, 2024
for hospice discharge today
Objective Data
-
Labs:
Laboratory Results
12/15/24
06:00
WBC Cancelled
Hgb Cancelled
Hct Cancelled
Plt Count Cancelled
Sodium Cancelled
Potassium Cancelled
Chloride Cancelled
Carbon Dioxide Cancelled
BUN Cancelled
Creatinine Cancelled
Glucose Cancelled
Calcium Cancelled
Vital Signs:
Vital Signs
Temp Pulse Resp BP Pulse Ox
97.5 F 90 16 140/94 92
12/15/24 08:18 12/15/24 07:58 12/15/24 06:03 12/15/24 07:58 12/15/24 06:03
I&O
12/14/24 12/15/24 12/16/24
06:59 06:59 06:59
Intake Total 960 / 960 960 / 960
Output Total 650 / 650 950 / 950
Balance 310 / 310 10 / 10
Physical Exam
-
General: No Apparent Distress
HEENT: Normocephalic and Atraumatic
Respiratory: Negative Wheezes
Cardiac: Regular Rhythm and S1/S2
GI: Soft
Neuro: AO x 3
Psych: Calm
Data Reviewed
-
Total Time Spent with Patient (in minutes): 41
Labs: Labs Reviewed by me
--- NOTE | 2024-12-15 10:26 | W.DS.TRANS ---
DC Summary - Chairman And Ceo
-
Discharge Instructions:
Discharge Diagnosis/Procedures progressive hypercapnic respiratory failure,
acute congestive heart failure
Diet Regular,As tolerated
Activity No restrictions
Bathing Restrictions None
Other Services Hospice
Instructions:
Stand-Alone Forms:
Changes to Home Medications: No
Discharge Medications:
DC Medications w/original date entered in [facility]
budesonide 0.5 mg/2 mL suspension for nebulization 0.5 mg inhalation R DAILY Lung/Breathing Issues 07/01/24
sodium chloride 0.65 % nasal spray aerosol 1 spray intranasal TIDPRN PRN dryness 07/01/24
cetirizine 10 mg tablet 10 mg PO DAILY Allergies #0 tabs 07/14/24
mesalamine 1.2 gram tablet,delayed release 2.4 g (2 x 1.2 gram) PO DAILY Gastrointestinal issue #0 tabs 07/14/24
montelukast 10 mg tablet 10 mg PO QPM Allergies #0 tabs 07/14/24
acetaminophen 650 mg tablet,extended release 650 mg PO DAILYPRN PRN mild pain 08/11/24
docusate sodium 100 mg capsule 100 mg PO DAILYPRN PRN constipation 08/11/24
methylcellulose (laxative) 500 mg tablet (Citrucel) 250 mg PO HSPRN PRN fiber suppliment 08/11/24
travoprost 0.004 % eye drops 1 drp BOTH EYES HS Eye Condition 08/11/24
vitamin A and D 1 applic topical DAILY b/l buttock sore 08/11/24
cinacalcet 30 mg tablet 30 mg PO DAILY #30 tabs 08/18/24
aspirin 81 mg tablet 81 mg PO DAILY Blood Clot Prevention/Tx 12/07/24
empagliflozin 12.5 mg-metformin ER 1,000 mg tablet,extended rel 24 hr (Synjardy XR) 1 tab PO DAILY Diabetes 12/07/24
diltiazem HCl 180 mg capsule,extended release 24 hr 180 mg PO BID #60 caps 12/15/24
furosemide 80 mg tablet (Lasix) 80 mg PO BID AT 0800,1600 Heart Failure #60 tabs 12/15/24
metoprolol succinate 25 mg tablet,extended release 24 hr 50 mg (2 x 25 mg) PO BID #60 tabs 12/15/24
Home Medication Changes
Pending Results: No
Total time spent discharging patient (in min): 41
--- NOTE | 2024-12-15 10:56 | W.PN.CARDCBS ---
Today's Communication / Plan
-
Okay for home hospice. Continue to use Lasix and rate control agents for comfort.
Impression / Plan
-
PCP: Dr. Lkae
Card: Dr. Eitan Bullock
Impression:
Admitted with acute HFpEF
Multiple previous admissions for acute heart failure preserved EF, August 2024, July 2024, July 2024
Recent admission for ureteral stone and acute HF 08/11/24 until 08/18/24
Permanent atrial fibrillation
Acute HFpEF
Persistent Afib
8% burden on monitor 12/2023 and now persistent Afib since at least 07/01/24
Chronic Eliquis OAC, currently off due to vaginal bleeding and hematuria
CROW/OHS on nocturnal CPAP with 2 L NC as an outpatient
ILD
DM 2
Severe morbid obesity, BMI 50.3
Mild to moderate aortic stenosis
Hypertension
Hypercholesterolemia
Venous insufficiency
Depression
Multiple medical allergies
Echo 07/04/2024: hyperdynamic left ventricular systolic function ejection fraction 65 to 70%. Moderate aortic stenosis with peak and mean gradients of 40 and 21 with a calculated aortic valve area of 1 cm2. Trivial pericardial effusion and no
significant valvular disease overall unchanged from prior echocardiogram
Plan:
I discussed with her plans for hospice at home. We discussed that she can take an extra Lasix 80 mg as needed for comfort.
Would continue digoxin and beta-mirian to help with rate control for comfort as well.
Discussed plan with her and her daughter.
Progress Note - Sociology Research Assistant
Subjective
Date of Service: December 15, 2024
Her breathing is overall about the same. Plan is for her to go home on hospice.
Objective
Labs:
12/15/24 06:00
12/15/24 06:00
Labs
Hgb Cancelled 12/15/24 06:00
Hct Cancelled 12/15/24 06:00
Plt Count Cancelled 12/15/24 06:00
Sodium Cancelled 12/15/24 06:00
Potassium Cancelled 12/15/24 06:00
BUN Cancelled 12/15/24 06:00
Creatinine Cancelled 12/15/24 06:00
Glucose Cancelled 12/15/24 06:00
Vital Signs and I&O:
Vital Signs
Temp Pulse Resp BP Pulse Ox
97.5 F 90 16 140/94 94
12/15/24 08:18 12/15/24 07:58 12/15/24 06:03 12/15/24 07:58 12/15/24 10:22
Vital Signs
Temp Pulse Resp BP Pulse Ox
97.5 F 90 16 140/94 94
12/15/24 08:18 12/15/24 07:58 12/15/24 06:03 12/15/24 07:58 12/15/24 10:22
Intake & Output
12/13/24 12/14/24 12/15/24 12/16/24
06:59 06:59 06:59 06:59
Intake Total 170 / 170 960 / 960 960 / 960
Output Total 400 / 400 650 / 650 950 / 950
Balance -230 / -230 310 / 310 10 / 10
Physical Exam
Physical Exam
GEN: No distress, awake, Ox3
HEENT: supple, anicteric, mmm
LUNGS: CTA, no wheezes/rales
CV: Reg, S1/S2, 1/6 syst LSB, no gallop
ABD: soft, BS+, NT/ND
EXT: +1 edema
NEURO: Gross non-focal
SKIN: No rash
--- NOTE | 2024-12-15 11:14 | PTCARENOTE ---
Rec'd orders for discharge from provider. Ambulance transport set for 10:30, Pt to be transferred to home hospice. S/w hospice and time confirmed. Report given to EMS transport upon arrival. D/c'd to home hospice.
== END 2024-12-15 11:30 | disposition home or self-care (01) | DRG 291 ==
LOC: IMU 04:29
PROVIDERS: Emergency Medicine; Hospitalist; Internal Medicine; ADMITTING PHYSICIAN Hospitalist; ATTENDING PHYSICIAN Internal Medicine; CONSULT PHYSICIAN Internal Medicine Critical Care Medicine; CONSULT PHYSICIAN Psychiatry & Neurology Psychiatry; EMERGENCY PHYSICIAN Student in an Organized Health Care Education/Training Program; FAMILY PHYSICIAN Internal Medicine; OTHER PHYSICIAN Internal Medicine Cardiovascular Disease
PROC: 5A09357 Assistance with Respiratory Ventilation, Less than 24 Consecutive Hours, Continuous Positive Airway Pressure (ICD-10-PCS; 2024-12-10)
DX: I11.0 Hypertensive heart disease with heart failure (principal); G93.41 Metabolic encephalopathy; J96.22 Acute and chronic respiratory failure with hypercapnia; I50.33 Acute on chronic diastolic (congestive) heart failure; J44.0 Chronic obstructive pulmonary disease with (acute) lower respiratory infection; E66.2 Morbid (severe) obesity with alveolar hypoventilation; Z68.42 Body mass index [BMI] 45.0-49.9, adult; K51.90 Ulcerative colitis, unspecified, without complications; I48.21 Permanent atrial fibrillation; J84.9 Interstitial pulmonary disease, unspecified; F32.A Depression, unspecified; F41.9 Anxiety disorder, unspecified; D63.8 Anemia in other chronic diseases classified elsewhere; E03.9 Hypothyroidism, unspecified; E21.3 Hyperparathyroidism, unspecified; I87.2 Venous insufficiency (chronic) (peripheral); G89.29 Other chronic pain; E11.9 Type 2 diabetes mellitus without complications; I89.0 Lymphedema, not elsewhere classified; I87.8 Other specified disorders of veins; G47.33 Obstructive sleep apnea (adult) (pediatric); K21.9 Gastro-esophageal reflux disease without esophagitis; Z87.891 Personal history of nicotine dependence; Z91.041 Radiographic dye allergy status; Z91.040 Latex allergy status; Z88.0 Allergy status to penicillin; Z88.1 Allergy status to other antibiotic agents; Z88.7 Allergy status to serum and vaccine; E78.00 Pure hypercholesterolemia, unspecified; Z79.82 Long term (current) use of aspirin; Z79.899 Other long term (current) drug therapy; Z79.01 Long term (current) use of anticoagulants; Z80.0 Family history of malignant neoplasm of digestive organs; Z80.3 Family history of malignant neoplasm of breast; Z82.3 Family history of stroke; J45.50 Severe persistent asthma, uncomplicated; K58.9 Irritable bowel syndrome, unspecified; L71.9 Rosacea, unspecified; Z87.442 Personal history of urinary calculi; Z87.440 Personal history of urinary (tract) infections; Z82.49 Family history of ischemic heart disease and other diseases of the circulatory system; Z91.018 Allergy to other foods
CPT/HCPCS: 36600; 70450; 71045; 71046; 73564; 76770; 80048; 80053; 80061; 81003; 81015; 82805; 82962; 83036; 83735; 83880; 84484; 85025; 85027; 93005; 94640; 94660; 96374; 97163; 97167; 97530; 99285; J1160